=== PATIENT | female | born 1950 | race Caucasian/White ===

== ENCOUNTER 2024-11-03 14:38 | Outpatient (NON) | payer MEDICARE, SELFPAY ==
--- OUTSIDE RECORDS SUMMARY | 2024-11-03 14:45 | XMS_ITS | Encounter Summary ---
Author Organization [facility] Facility Care Team Providers Care Rn Relief Charge Name Role Phone Harry Jorgensen MD Primary Care Provider + Truman Moody MD Unavailable [phone] Michael Quiros MD Unavailable [phone] Mohan Rico MD Unavailable [phone] Betty Calvin Unavailable [phone] Sybil Alex [facility] Unavailable Unavailable Encounter Details Date Type Department Care Team (Latest Contact Info) Description 05/28/2017 Orders Only [facility] CLINCONV ProviderKrzysztof MD [address] [place] [address] Social History Tobacco Use Types Packs/Day Years Used Date Smoking Tobacco: Never Alcohol Use Standard Drinks/Week Comments No 0 (1 standard drink = 0.6 oz pur e alcohol) Comments Unknown Sex and Gender Information Value Date Recorded Sex Assigned at Not on file Legal Sex Female 10:24 AM ASSOCIATE SALES REPRESENTATIVE Gender Identity Female 01/15/2021 9:27 PM CDT Sexual Orientation Straight 01/15/2021 9: 27 PM CDT documented as of this encounter Plan of Treatment Not on file documented as of this encounter Procedures Procedure Name Priority Date/Time Associated Diagnosis Comments SCAN - LABS 05/28/2017 12:00 AM ASSOCIATE SALES REPRESENTATIVE documented in this encounter Results * SCAN - LABS (05/28/2017 12:00 AM ASSOCIATE SALES REPRESENTATIVE) Narrative 05/28/2017 12:00 AM ASSOCIATE SALES REPRESENTATIVE Ordered by an unspecified provider. us Historical Provider Final Res ult documented in this encounter Visit Diagnoses Not on filedocumented in this encounter Additional Health Concerns Infection Onset Date Last Indicated Resolved Time COVID19 10/21/2024 10/21/2024 documented as of this encounter Care Teams Rn Relief Charge Relationship Specialty Start Date End Date Harry Jorgensen MD PCP - General 09/06/16 Truman Moody MD Metal Fabricator Cardiology 02/01/19 09/16/24 iMchael Quiros MD [address] [address] Referring Physician Interventional Cardiology 09/17/24 Mohan Rico MD [address] [facility] [address] [place] [address] [place] [address] Consulting Physician Pulmonary Disease 09/17/24 Betty Calvin PA [address] [facility] [address] [place] [address] [place] [address] Physician Bistro Attendant Orthopedic Surgery 10/08/24 Sybil Alex, [facility] Pharmacist Pharmacy 10/29/24 documented as of this encounter
--- OUTSIDE RECORDS SUMMARY | 2024-11-03 14:45 | XMS_ITS | Encounter Summary ---
Author Organization [facility] Facility Care Team Providers Care Varnish Melter Name Role Phone Harry Jorgensen MD Primary Care Provider + Truman Moody MD Unavailable [phone] Michael Quiros MD Unavailable [phone] Mohan Rico MD Unavailable [phone] Betty Calvin Unavailable [phone] Sybil Alex [facility] Unavailable Unavailable Encounter Details Date Type Department Care Team (Latest Contact Info) Description 10/10/2016 Orders Only [facility] CLINCONV ProviderKrzysztof MD [address] [place] [address] Social History Tobacco Use Types Packs/Day Years Used Date Smoking Tobacco: Never Alcohol Use Standard Drinks/Week Comments No 0 (1 standard drink = 0.6 oz pur e alcohol) Comments Unknown Sex and Gender Information Value Date Recorded Sex Assigned at Not on file Legal Sex Female 10:24 AM NEEDLE MOLDER Gender Identity Female 01/15/2021 9:27 PM CDT Sexual Orientation Straight 01/15/2021 9: 27 PM CDT documented as of this encounter Plan of Treatment Not on file documented as of this encounter Procedures Procedure Name Priority Date/Time Associated Diagnosis Comments PROCEDURE - RESULT 10/10/2016 12 :00 AM CDT documented in this encounter Results * PROCEDURE - RESULT (10/10/2016 12:00 AM CDT) Narrative 10/10/2016 12:00 AM CDT Ordered by an unspecified provider. us Historical Provider Final Res ult documented in this encounter Visit Diagnoses Not on filedocumented in this encounter Additional Health Concerns Infection Onset Date Last Indicated Resolved Time COVID19 10/21/2024 10/21/2024 documented as of this encounter Care Teams Varnish Melter Relationship Specialty Start Date End Date Harry Jorgensen MD PCP - General 09/06/16 Truman Moody MD Lingo Cleaner Cardiology 02/01/19 09/16/24 Michael Quiros MD [address] [address] Referring Physician Interventional Cardiology 09/17/24 Mohan Rico MD [address] [facility] [address] [place] [address] [place] [address] Consulting Physician Pulmonary Disease 09/17/24 Betty Calvin PA [address] [facility] [address] [place] [address] [place] [address] Physician Hot Knife Foxing Cutter Orthopedic Surgery 10/08/24 Sybil Alex, [facility] Pharmacist Pharmacy 10/29/24 documented as of this encounter
--- OUTSIDE RECORDS SUMMARY | 2024-11-03 14:45 | XMS_ITS | Encounter Summary ---
Author Organization [facility] Facility Care Team Providers Care Air Route Controller Name Role Phone Harry Jorgensen MD Primary Care Provider + Truman Moody MD Unavailable [phone] Michael Quiros MD Unavailable [phone] Mohan Rico MD Unavailable [phone] Betty Calvin Unavailable [phone] Sybil Alex [facility] Unavailable Unavailable Encounter Details Date Type Department Care Team (Latest Contact Info) Description 10/23/2017 Orders Only [facility] CLINCONV ProviderKrzysztof MD [address] [place] [address] Social History Tobacco Use Types Packs/Day Years Used Date Smoking Tobacco: Never Alcohol Use Standard Drinks/Week Comments No 0 (1 standard drink = 0.6 oz pur e alcohol) Comments Unknown Sex and Gender Information Value Date Recorded Sex Assigned at Not on file Legal Sex Female 10:24 AM TURN LASTER Gender Identity Female 01/15/2021 9:27 PM CDT Sexual Orientation Straight 01/15/2021 9: 27 PM CDT documented as of this encounter Plan of Treatment Not on file documented as of this encounter Procedures Procedure Name Priority Date/Time Associated Diagnosis Comments SCAN - LABS 10/23/2017 12:00 AM CDT documented in this encounter Results * SCAN - LABS (10/23/2017 12:00 AM CDT) Narrative 10/23/2017 12:00 AM CDT Ordered by an unspecified provider. us Historical Provider Final Res ult documented in this encounter Visit Diagnoses Not on filedocumented in this encounter Additional Health Concerns Infection Onset Date Last Indicated Resolved Time COVID19 10/21/2024 10/21/2024 documented as of this encounter Care Teams Air Route Controller Relationship Specialty Start Date End Date Harry Jorgensen MD PCP - General 09/06/16 Truman Moody MD Assembler Faucets Cardiology 02/01/19 09/16/24 Michael Quiros MD [address] [address] Referring Physician Interventional Cardiology 09/17/24 Mohan Rico MD [address] [facility] [address] [place] [address] [place] [address] Consulting Physician Pulmonary Disease 09/17/24 Betty Calvin PA [address] [facility] [address] [place] [address] [place] [address] Physician Principal Archaeologist Orthopedic Surgery 10/08/24 Sybil Alex, [facility] Pharmacist Pharmacy 10/29/24 documented as of this encounter
--- OUTSIDE RECORDS SUMMARY | 2024-11-03 14:45 | XMS_ITS | Encounter Summary ---
Author Organization [facility] Facility Care Team Providers Care Technology Officer Name Role Phone Harry Jorgensen MD Primary Care Provider + Truman Moody MD Unavailable [phone] Michael Quiros MD Unavailable [phone] Mohan Rico MD Unavailable [phone] Betty Calvin Unavailable [phone] Sybil Alex [facility] Unavailable Unavailable Encounter Details Date Type Department Care Team (Latest Contact Info) Description 10/15/2016 Orders Only [facility] CLINCONV ProviderKrzysztof MD [address] [place] [address] Social History Tobacco Use Types Packs/Day Years Used Date Smoking Tobacco: Never Alcohol Use Standard Drinks/Week Comments No 0 (1 standard drink = 0.6 oz pur e alcohol) Comments Unknown Sex and Gender Information Value Date Recorded Sex Assigned at Not on file Legal Sex Female 10:24 AM AIRPORT REFUELING HANDLER Gender Identity Female 01/15/2021 9:27 PM CDT Sexual Orientation Straight 01/15/2021 9: 27 PM CDT documented as of this encounter Plan of Treatment Not on file documented as of this encounter Procedures Procedure Name Priority Date/Time Associated Diagnosis Comments SCAN - LABS 10/15/2016 12:00 AM CDT documented in this encounter Results * SCAN - LABS (10/15/2016 12:00 AM CDT) Narrative 10/15/2016 12:00 AM CDT Ordered by an unspecified provider. us Historical Provider Final Res ult documented in this encounter Visit Diagnoses Not on filedocumented in this encounter Additional Health Concerns Infection Onset Date Last Indicated Resolved Time COVID19 10/21/2024 10/21/2024 documented as of this encounter Care Teams Technology Officer Relationship Specialty Start Date End Date Harry Jorgensen MD PCP - General 09/06/16 Truman Moody MD Cooling Pipe Inspector Cardiology 02/01/19 09/16/24 Michael Quiros MD [address] [address] Referring Physician Interventional Cardiology 09/17/24 Mohan Rico MD [address] [facility] [address] [place] [address] [place] [address] Consulting Physician Pulmonary Disease 09/17/24 Betty Calvin PA [address] [facility] [address] [place] [address] [place] [address] Physician Retail Bakery Manager Orthopedic Surgery 10/08/24 Sybil Alex, [facility] Pharmacist Pharmacy 10/29/24 documented as of this encounter
--- OUTSIDE RECORDS SUMMARY | 2024-11-03 14:45 | XMS_ITS | Encounter Summary ---
Author Organization [facility] Facility Care Team Providers Care Tabulating Machine Mechanic Name Role Phone Harry Jorgensen MD Primary Care Provider + Truman Moody MD Unavailable [phone] Michael Quiros MD Unavailable [phone] Mohan Rico MD Unavailable [phone] Betty Calvin Unavailable [phone] Sybil Alex [facility] Unavailable Unavailable Encounter Details Date Type Department Care Team (Latest Contact Info) Description 10/09/2016 Orders Only [facility] CLINCONV ProviderKrzysztof MD [address] [place] [address] Social History Tobacco Use Types Packs/Day Years Used Date Smoking Tobacco: Never Alcohol Use Standard Drinks/Week Comments No 0 (1 standard drink = 0.6 oz pur e alcohol) Comments Unknown Sex and Gender Information Value Date Recorded Sex Assigned at Not on file Legal Sex Female 10:24 AM VP INTEGRITY Gender Identity Female 01/15/2021 9:27 PM CDT Sexual Orientation Straight 01/15/2021 9: 27 PM CDT documented as of this encounter Plan of Treatment Not on file documented as of this encounter Procedures Procedure Name Priority Date/Time Associated Diagnosis Comments PROCEDURE - RESULT 10/09/2016 12 :00 AM CDT documented in this encounter Results * PROCEDURE - RESULT (10/09/2016 12:00 AM CDT) Narrative 10/09/2016 12:00 AM CDT Ordered by an unspecified provider. us Historical Provider Final Res ult documented in this encounter Visit Diagnoses Not on filedocumented in this encounter Additional Health Concerns Infection Onset Date Last Indicated Resolved Time COVID19 10/21/2024 10/21/2024 documented as of this encounter Care Teams Tabulating Machine Mechanic Relationship Specialty Start Date End Date Harry Jorgensen MD PCP - General 09/06/16 Truman Moody MD Product Safety Compliance Leader Cardiology 02/01/19 09/16/24 Michael Quiros MD [address] [address] Referring Physician Interventional Cardiology 09/17/24 Mohan Rico MD [address] [facility] [address] [place] [address] [place] [address] Consulting Physician Pulmonary Disease 09/17/24 Betty Calvin PA [address] [facility] [address] [place] [address] [place] [address] Physician Bloom Conveyor Operator Orthopedic Surgery 10/08/24 Sybil Alex, [facility] Pharmacist Pharmacy 10/29/24 documented as of this encounter
--- OUTSIDE RECORDS SUMMARY | 2024-11-03 14:45 | XMS_ITS | Encounter Summary ---
Author Organization [facility] Facility Care Team Providers Care Clay Structure Builder And Servicer Name Role Phone Harry Jorgensen MD Primary Care Provider + Truman Moody MD Unavailable [phone] Michael Quiros MD Unavailable [phone] Mohan Rico MD Unavailable [phone] Betty Calvin Unavailable [phone] Sybil Alex [facility] Unavailable Unavailable Encounter Details Date Type Department Care Team (Latest Contact Info) Description 08/28/2017 Orders Only [facility]G CLINCONV ProviderKrzysztof MD [address] [place] [address] Social History Tobacco Use Types Packs/Day Years Used Date Smoking Tobacco: Never Alcohol Use Standard Drinks/Week Comments No 0 (1 standard drink = 0.6 oz pur e alcohol) Comments Unknown Sex and Gender Information Value Date Recorded Sex Assigned at Not on file Legal Sex Female 10:24 AM MUSTANGER Gender Identity Female 01/15/2021 9:27 PM CDT Sexual Orientation Straight 01/15/2021 9: 27 PM CDT documented as of this encounter Plan of Treatment Not on file documented as of this encounter Procedures Procedure Name Priority Date/Time Associated Diagnosis Comments SCAN - LABS 08/28/2017 12:00 AM CDT documented in this encounter Results * SCAN - LABS (08/28/2017 12:00 AM CDT) Narrative 08/28/2017 12:00 AM CDT Ordered by an unspecified provider. us Historical Provider Final Res ult documented in this encounter Visit Diagnoses Not on filedocumented in this encounter Additional Health Concerns Infection Onset Date Last Indicated Resolved Time COVID19 10/21/2024 10/21/2024 documented as of this encounter Care Teams Clay Structure Builder And Servicer Relationship Specialty Start Date End Date Harry Jorgensen MD PCP - General 09/06/16 Truman Moody MD Seasoning Sprayer Cardiology 02/01/19 09/16/24 Michael Quiros MD [address] [address] Referring Physician Interventional Cardiology 09/17/24 Mohan Rico MD [address] [facility] [address] [place] [address] [place] [address] Consulting Physician Pulmonary Disease 09/17/24 Betty Calvin PA [address] [facility] [address] [place] [address] [place] [address] Physician Heavy Equipment Field Mechanic Orthopedic Surgery 10/08/24 Sybil Alex, [facility] Pharmacist Pharmacy 10/29/24 documented as of this encounter
--- OUTSIDE RECORDS SUMMARY | 2024-11-03 14:45 | XMS_ITS | Encounter Summary ---
Author Organization [facility] Facility Care Team Providers Care Monotype Mechanic Name Role Phone Harry Jorgensen MD Primary Care Provider + Truman Moody MD Unavailable [phone] Michael Quiros MD Unavailable [phone] Mohan Rico MD Unavailable [phone] Betty Calvin Unavailable [phone] Sybil Alex [facility] Unavailable Unavailable Encounter Details Date Type Department Care Team (Latest Contact Info) Description 01/18/2018 Orders Only [facility]G CLINCONV ProviderKrzysztof MD [address] [place] [address] Social History Tobacco Use Types Packs/Day Years Used Date Smoking Tobacco: Never Alcohol Use Standard Drinks/Week Comments No 0 (1 standard drink = 0.6 oz pur e alcohol) Comments Unknown Sex and Gender Information Value Date Recorded Sex Assigned at Not on file Legal Sex Female 10:24 AM TOOTH POLISHER Gender Identity Female 01/15/2021 9:27 PM CDT Sexual Orientation Straight 01/15/2021 9: 27 PM CDT documented as of this encounter Plan of Treatment Not on file documented as of this encounter Procedures Procedure Name Priority Date/Time Associated Diagnosis Comments SCAN - LABS 01/18/2018 12:00 AM CDT documented in this encounter Results * SCAN - LABS (01/18/2018 12:00 AM CDT) Narrative 01/18/2018 12:00 AM CDT Ordered by an unspecified provider. us Historical Provider Final Res ult documented in this encounter Visit Diagnoses Not on filedocumented in this encounter Additional Health Concerns Infection Onset Date Last Indicated Resolved Time COVID19 10/21/2024 10/21/2024 documented as of this encounter Care Teams Monotype Mechanic Relationship Specialty Start Date End Date Harry Jorgensen MD PCP - General 09/06/16 Truman Moody MD Humanities And Languages Professor Cardiology 02/01/19 09/16/24 Michael Quiros MD [address] [address] Referring Physician Interventional Cardiology 09/17/24 Mohan Rico MD [address] [facility] [address] [place] [address] [place] [address] Consulting Physician Pulmonary Disease 09/17/24 Betty Calvin PA [address] [facility] [address] [place] [address] [place] [address] Physician Production Assembly Supervisor Orthopedic Surgery 10/08/24 Sybil Alex, [facility] Pharmacist Pharmacy 10/29/24 documented as of this encounter
--- OUTSIDE RECORDS SUMMARY | 2024-11-03 14:45 | XMS_ITS | Encounter Summary ---
Author Organization [facility] Facility Care Team Providers Care Cartography/Mapping Technician Name Role Phone Harry Jorgensen MD Primary Care Provider + Truman Moody MD Unavailable [phone] Michael Quiros MD Unavailable [phone] Mohan Rico MD Unavailable [phone] Betty Calvin Unavailable [phone] Sybil Alex [facility] Unavailable Unavailable Encounter Details Date Type Department Care Team (Latest Contact Info) Description 07/16/2017 Orders Only MMG CLINCONV ProviderKrzysztof MD [address] [place] [address] Social History Tobacco Use Types Packs/Day Years Used Date Smoking Tobacco: Never Alcohol Use Standard Drinks/Week Comments No 0 (1 standard drink = 0.6 oz pur e alcohol) Comments Unknown Sex and Gender Information Value Date Recorded Sex Assigned at Not on file Legal Sex Female 10:24 AM LYFT DRIVER Gender Identity Female 01/15/2021 9:27 PM CDT Sexual Orientation Straight 01/15/2021 9: 27 PM CDT documented as of this encounter Plan of Treatment Not on file documented as of this encounter Procedures Procedure Name Priority Date/Time Associated Diagnosis Comments SCAN - LABS 07/17/2017 12:00 AM LYFT DRIVER documented in this encounter Results * SCAN - LABS (07/17/2017 12:00 AM LYFT DRIVER) Narrative 07/17/2017 12:00 AM LYFT DRIVER Ordered by an unspecified provider. us Historical Provider Final Res ult documented in this encounter Visit Diagnoses Not on filedocumented in this encounter Additional Health Concerns Infection Onset Date Last Indicated Resolved Time COVID19 10/21/2024 10/21/2024 documented as of this encounter Care Teams Cartography/Mapping Technician Relationship Specialty Start Date End Date Harry Jorgensen MD PCP - General 09/06/16 Truman Moody MD Marble Cutter Operator Cardiology 02/01/19 09/16/24 Michael Quiros MD [address] [address] Referring Physician Interventional Cardiology 09/17/24 Mohan Rico MD [address] [facility] [address] [place] [address] [place] [address] Consulting Physician Pulmonary Disease 09/17/24 Betty Calvin PA [address] [facility] [address] [place] [address] [place] [address] Physician Machine Clothing Replacer Orthopedic Surgery 10/08/24 Sybil Alex, [facility] Pharmacist Pharmacy 10/29/24 documented as of this encounter
--- OUTSIDE RECORDS SUMMARY | 2024-11-03 14:45 | XMS_ITS | Encounter Summary ---
Author Organization [facility] Facility Care Team Providers Care Claim Service Representative Name Role Phone Harry Jorgensen MD Primary Care Provider + Truman Moody MD Unavailable [phone] Michael Quiros MD Unavailable [phone] Mohan Rico MD Unavailable [phone] Betty Calvin Unavailable [phone] Sybil Alex [facility] Unavailable Unavailable Encounter Details Date Type Department Care Team (Latest Contact Info) Description 09/26/2016 Orders Only MMG CLINCONV ProviderKrzysztof MD [address] [place] [address] Social History Tobacco Use Types Packs/Day Years Used Date Smoking Tobacco: Never Alcohol Use Standard Drinks/Week Comments No 0 (1 standard drink = 0.6 oz pur e alcohol) Comments Unknown Sex and Gender Information Value Date Recorded Sex Assigned at Not on file Legal Sex Female 10:24 AM HVAC OPERATIONS TECHNICIAN Gender Identity Female 01/15/2021 9:27 PM CDT Sexual Orientation Straight 01/15/2021 9: 27 PM CDT documented as of this encounter Plan of Treatment Not on file documented as of this encounter Procedures Procedure Name Priority Date/Time Associated Diagnosis Comments SCAN - LABS 09/26/2016 12:00 AM CDT documented in this encounter Results * SCAN - LABS (09/26/2016 12:00 AM CDT) Narrative 09/26/2016 12:00 AM CDT Ordered by an unspecified provider. us Historical Provider Final Res ult documented in this encounter Visit Diagnoses Not on filedocumented in this encounter Additional Health Concerns Infection Onset Date Last Indicated Resolved Time COVID19 10/21/2024 10/21/2024 documented as of this encounter Care Teams Claim Service Representative Relationship Specialty Start Date End Date Harry Jorgensen MD PCP - General 09/06/16 Truman Moody MD Geothermal System Installer Cardiology 02/01/19 09/16/24 Michael Quiros MD [address] [address] Referring Physician Interventional Cardiology 09/17/24 Mohan Rico MD [address] [facility] [address] [place] [address] [place] [address] Consulting Physician Pulmonary Disease 09/17/24 Betty Calvin PA [address] [facility] [address] [place] [address] [place] [address] Physician Pulp Machine Operator Orthopedic Surgery 10/08/24 Sybil Alex, [facility] Pharmacist Pharmacy 10/29/24 documented as of this encounter
--- OUTSIDE RECORDS SUMMARY | 2024-11-03 14:45 | XMS_ITS | Encounter Summary ---
Author Organization [facility] Facility Care Team Providers Care Subcontract Administrator Name Role Phone Harry Jorgensen MD Primary Care Provider + Taqueria Sullivan MD Primary Care Provider [phone] Harry Jorgensen MD Primary Care Provider + Truman Moody MD Unavailable [phone] Michael Quiros MD Unavailable [phone] Mohan Rico MD Unavailable [phone] Betty Calvin Unavailable [phone] Sybil Alex [facility] Unavailable Unavailable Encounter Details Date Type Department Care Team (Latest Contact Info) Description 08/21/2016 Orders Only MMG CLINCONV ProviderKrzysztof MD [address] [place] [address] Social History Tobacco Use Types Packs/Day Years Used Date Smoking Tobacco: Never Alcohol Use Standard Drinks/Week Comments No 0 (1 standard drink = 0.6 oz pur e alcohol) Comments Unknown Sex and Gender Information Value Date Recorded Sex Assigned at Not on file Legal Sex Female 10:24 AM SHANK SCOURER Gender Identity Female 01/15/2021 9:27 PM CDT Sexual Orientation Straight 01/15/2021 9: 27 PM CDT documented as of this encounter Plan of Treatment Not on file documented as of this encounter Procedures Procedure Name Priority Date/Time Associated Diagnosis Comments SCAN - LABS 08/21/2016 12:00 AM CDT documented in this encounter Results * SCAN - LABS (08/21/2016 12:00 AM CDT) Narrative 08/21/2016 12:00 AM CDT Ordered by an unspecified provider. us Historical Provider Final Res ult documented in this encounter Visit Diagnoses Not on filedocumented in this encounter Additional Health Concerns Infection Onset Date Last Indicated Resolved Time COVID19 10/21/2024 10/21/2024 documented as of this encounter Care Teams Subcontract Administrator Relationship Specialty Start Date End Date Harry Jorgensen MD PCP - General 09/06/16 Taqueria Sullivan MD [address] [address] PCP - General 08/27/16 09/05/16 Harry Jorgensen MD PCP - General 04/21/14 08/26/16 Truman Moody MD [address] [address] Lan Engineer Cardiology 02/01/19 09/16/24 Michael Quiros MD [address] [place] [address] 3 [place] [address] Referring Physician Interventional Cardiology 09/17/24 Mohan Rico MD [address] [address] Consulting Physician Pulmonary Disease 09/17/24 Betty Calvin PA [address] [facility] [address] [place] [address] [place] [address] Physician Joint Creaser Orthopedic Surgery 10/08/24 Sybil Alex, [facility] Pharmacist Pharmacy 10/29/24 documented as of this encounter
--- OUTSIDE RECORDS SUMMARY | 2024-11-03 14:45 | XMS_ITS | Encounter Summary ---
Author Organization [facility] Facility Care Team Providers Care Strap Making Machine Operator Name Role Phone Harry Jorgensen MD Primary Care Provider + Truman Moody MD Unavailable [phone] Michael Quiros MD Unavailable [phone] Mohan Rico MD Unavailable [phone] Betty Calvin Unavailable [phone] Sybil Alex [facility] Unavailable Unavailable Encounter Details Date Type Department Care Team (Latest Contact Info) Description 09/15/2017 Orders Only MMG CLINCONV ProviderKrzysztof MD [address] [place] [address] Social History Tobacco Use Types Packs/Day Years Used Date Smoking Tobacco: Never Alcohol Use Standard Drinks/Week Comments No 0 (1 standard drink = 0.6 oz pur e alcohol) Comments Unknown Sex and Gender Information Value Date Recorded Sex Assigned at Not on file Legal Sex Female 10:24 AM WINDOWS VMWARE ENGINEER Gender Identity Female 01/15/2021 9:27 PM CDT Sexual Orientation Straight 01/15/2021 9: 27 PM CDT documented as of this encounter Plan of Treatment Not on file documented as of this encounter Procedures Procedure Name Priority Date/Time Associated Diagnosis Comments SCAN - LABS 09/15/2017 12:00 AM CDT documented in this encounter Results * SCAN - LABS (09/15/2017 12:00 AM CDT) Narrative 09/15/2017 12:00 AM CDT Ordered by an unspecified provider. us Historical Provider Final Res ult documented in this encounter Visit Diagnoses Not on filedocumented in this encounter Additional Health Concerns Infection Onset Date Last Indicated Resolved Time COVID19 10/21/2024 10/21/2024 documented as of this encounter Care Teams Strap Making Machine Operator Relationship Specialty Start Date End Date Harry Jorgensen MD PCP - General 09/06/16 Truman Moody MD Sort Line Cardiology 02/01/19 09/16/24 Michael Quiros MD [address] [address] Referring Physician Interventional Cardiology 09/17/24 Mohan Rico MD [address] [facility] [address] [place] [address] Consulting Physician Pulmonary Disease 09/17/24 Betty Calvin PA [address] [facility] [address] [place] [address] Physician Huller Operator Orthopedic Surgery 10/08/24 Sybil Alex, [facility] Pharmacist Pharmacy 10/29/24 documented as of this encounter
--- OUTSIDE RECORDS SUMMARY | 2024-11-03 14:45 | XMS_ITS | Encounter Summary ---
Author Organization [facility] Facility Care Team Providers Care Waste Treatment Operator Name Role Phone Harry Jorgensen MD Primary Care Provider + Truman Moody MD Unavailable [phone] Michael Quiros MD Unavailable [phone] Mohan Rico MD Unavailable [phone] Betty Calvin Unavailable [phone] Sybil Alex [facility] Unavailable Unavailable Encounter Details Date Type Department Care Team (Latest Contact Info) Description 07/30/2017 Orders Only MMG CLINCONV ProviderKrzysztof MD [address] [place] [address] Social History Tobacco Use Types Packs/Day Years Used Date Smoking Tobacco: Never Alcohol Use Standard Drinks/Week Comments No 0 (1 standard drink = 0.6 oz pur e alcohol) Comments Unknown Sex and Gender Information Value Date Recorded Sex Assigned at Not on file Legal Sex Female 10:24 AM SEARCH MANAGER Gender Identity Female 01/15/2021 9:27 PM CDT Sexual Orientation Straight 01/15/2021 9: 27 PM CDT documented as of this encounter Plan of Treatment Not on file documented as of this encounter Procedures Procedure Name Priority Date/Time Associated Diagnosis Comments CARDIOLOGY REPORT 07/30/2017 12: 00 AM SEARCH MANAGER documented in this encounter Results * CARDIOLOGY REPORT (07/30/2017 12:00 AM SEARCH MANAGER) Anatomical Region Laterality Modality Other Narrative 07/30/2017 12:00 AM SEARCH MANAGER Ordered by an unspecified provider. us Historical Provider CV CARDIAC SERVICES PROCE ALEX Final Result documented in this encounter Visit Diagnoses Not on filedocumented in this encounter Additional Health Concerns Infection Onset Date Last Indicated Resolved Time COVID19 10/21/2024 10/21/2024 documented as of this encounter Care Teams Waste Treatment Operator Relationship Specialty Start Date End Date Harry Jorgensen MD PCP - General 09/06/16 Truman Moody MD Health Care Consultant Cardiology 02/01/19 09/16/24 Michael Quiros MD [address] [place] [address] Referring Physician Interventional Cardiology 09/17/24 Mohan Rico MD [address] [facility] [address] [place] [address] Consulting Physician Pulmonary Disease 09/17/24 Betty Calvin PA [address] [facility] [address] [place] [address] Physician Marine Designer Orthopedic Surgery 10/08/24 Sybil Alex, [facility] Pharmacist Pharmacy 10/29/24 documented as of this encounter
--- OUTSIDE RECORDS SUMMARY | 2024-11-03 14:45 | XMS_ITS | Encounter Summary ---
Author Organization [facility] Facility Care Team Providers Care Banking Assistant Name Role Phone Harry Jorgensen MD Primary Care Provider + Truman Moody MD Unavailable [phone] Michael Quiros MD Unavailable [phone] Mohan Rico MD Unavailable [phone] Betty Calvin Unavailable [phone] Sybil Alex [facility] Unavailable Unavailable Encounter Details Date Type Department Care Team (Latest Contact Info) Description 10/07/2017 Orders Only MMG CLINCONV ProviderKrzysztof MD [address] [place] [address] Social History Tobacco Use Types Packs/Day Years Used Date Smoking Tobacco: Never Alcohol Use Standard Drinks/Week Comments No 0 (1 standard drink = 0.6 oz pur e alcohol) Comments Unknown Sex and Gender Information Value Date Recorded Sex Assigned at Not on file Legal Sex Female 10:24 AM GRANTS DIRECTOR Gender Identity Female 01/15/2021 9:27 PM CDT Sexual Orientation Straight 01/15/2021 9: 27 PM CDT documented as of this encounter Plan of Treatment Not on file documented as of this encounter Procedures Procedure Name Priority Date/Time Associated Diagnosis Comments SCAN - LABS 10/07/2017 12:00 AM CDT SCAN - LABS 10/07/2017 12:00 AM CDT documented in this encounter Results * SCAN - LABS (10/07/2017 12:00 AM CDT) Narrative 10/07/2017 12:00 AM CDT Ordered by an unspecified provider. us Historical Provider Final Res ult * SCAN - LABS (10/07/2017 12:00 AM CDT) Narrative 10/07/2017 12:00 AM CDT Ordered by an unspecified provider. Historical Provider Final Res ult documented in this encounter Visit Diagnoses Not on filedocumented in this encounter Additional Health Concerns Infection Onset Date Last Indicated Resolved Time COVID19 10/21/2024 10/21/2024 documented as of this encounter Care Teams Banking Assistant Relationship Specialty Start Date End Date Harry Jorgensen MD PCP - General 09/06/16 Truman Moody MD Job Coach Cardiology 02/01/19 09/16/24 Michael Quiros MD [address] [place] [address] Referring Physician Interventional Cardiology 09/17/24 Mohan Rico MD [address] [facility] [address] [place] [address] Consulting Physician Pulmonary Disease 09/17/24 Betty Calvin PA [address] [facility] [address] [place] [address] Physician Pocket Flap Creasing Machine Operator Orthopedic Surgery 10/08/24 Sybil Alex, [facility] Pharmacist Pharmacy 10/29/24 documented as of this encounter
--- OUTSIDE RECORDS SUMMARY | 2024-11-03 14:45 | XMS_ITS | Encounter Summary ---
Author Organization [facility] Facility Care Team Providers Care Regional Marketing Director Name Role Phone Harry Jorgensen MD Primary Care Provider + Truman Moody MD Unavailable [phone] Michael Quiros MD Unavailable [phone] Mohan Rico MD Unavailable [phone] Betty Calvin Unavailable [phone] Sybil Alex [facility] Unavailable Unavailable Encounter Details Date Type Department Care Team (Latest Contact Info) Description 11/26/2016 Orders Only MMG CLINCONV ProviderKrzysztof MD [address] [place] [address] Social History Tobacco Use Types Packs/Day Years Used Date Smoking Tobacco: Never Alcohol Use Standard Drinks/Week Comments No 0 (1 standard drink = 0.6 oz pur e alcohol) Comments Unknown Sex and Gender Information Value Date Recorded Sex Assigned at Not on file Legal Sex Female 10:24 AM ASSURANCE SOURCING MANAGER Gender Identity Female 01/15/2021 9:27 PM CDT Sexual Orientation Straight 01/15/2021 9: 27 PM CDT documented as of this encounter Plan of Treatment Not on file documented as of this encounter Procedures Procedure Name Priority Date/Time Associated Diagnosis Comments PROCEDURE - RESULT 11/26/2016 12 :00 AM CDT documented in this encounter Results * PROCEDURE - RESULT (11/26/2016 12:00 AM CDT) Narrative 11/26/2016 12:00 AM CDT Ordered by an unspecified provider. us Historical Provider Final Res ult documented in this encounter Visit Diagnoses Not on filedocumented in this encounter Additional Health Concerns Infection Onset Date Last Indicated Resolved Time COVID19 10/21/2024 10/21/2024 documented as of this encounter Care Teams Regional Marketing Director Relationship Specialty Start Date End Date Harry Jorgensen MD PCP - General 09/06/16 Truman Moody MD Radiologic Technologist Chief Cardiology 02/01/19 09/16/24 Michael Quiros MD [address] [address] Referring Physician Interventional Cardiology 09/17/24 Mohan Rico MD [address] [facility] [address] [address] [place] [address] Consulting Physician Pulmonary Disease 09/17/24 Betty Calvin PA [address] [facility] [address] [place] [place] [address] Physician Transonic Engineer Orthopedic Surgery 10/08/24 Sybil Alex, [facility] Pharmacist Pharmacy 10/29/24 documented as of this encounter
--- OUTSIDE RECORDS SUMMARY | 2024-11-03 14:45 | XMS_ITS | Encounter Summary ---
Author Organization [facility] Facility Care Team Providers Care Criminology Professor Name Role Phone Harry Jorgensen MD Primary Care Provider + Truman Moody MD Unavailable [phone] Michael Quiros MD Unavailable [phone] Mohna Rico MD Unavailable [phone] Betty Calvin Unavailable [phone] Sybil Alex [facility] Unavailable Unavailable Encounter Details Date Type Department Care Team (Latest Contact Info) Description 09/12/2016 Orders Only MMG CLINCONV ProviderKrzysztof MD [address] [place] [address] Social History Tobacco Use Types Packs/Day Years Used Date Smoking Tobacco: Never Alcohol Use Standard Drinks/Week Comments No 0 (1 standard drink = 0.6 oz pur e alcohol) Comments Unknown Sex and Gender Information Value Date Recorded Sex Assigned at Not on file Legal Sex Female 10:24 AM SEED PRODUCTION FIELD SUPERVISOR Gender Identity Female 01/15/2021 9:27 PM CDT Sexual Orientation Straight 01/15/2021 9: 27 PM CDT documented as of this encounter Plan of Treatment Not on file documented as of this encounter Procedures Procedure Name Priority Date/Time Associated Diagnosis Comments SCAN - LABS 09/12/2016 12:00 AM CDT documented in this encounter Results * SCAN - LABS (09/12/2016 12:00 AM CDT) Narrative 09/12/2016 12:00 AM CDT Ordered by an unspecified provider. us Historical Provider Final Res ult documented in this encounter Visit Diagnoses Not on filedocumented in this encounter Additional Health Concerns Infection Onset Date Last Indicated Resolved Time COVID19 10/21/2024 10/21/2024 documented as of this encounter Care Teams Criminology Professor Relationship Specialty Start Date End Date Harry Jorgensen MD PCP - General 09/06/16 Truman Moody MD Gaming Investigator Cardiology 02/01/19 09/16/24 Michael Quiros MD [address] [address] Referring Physician Interventional Cardiology 09/17/24 Mohan Rico MD [address] [facility] [address] [place] [address] [place] [address] Consulting Physician Pulmonary Disease 09/17/24 Betty Calvin PA [address] [facility] [address] [place] [address] Physician Product Development Manager Orthopedic Surgery 10/08/24 Sybil Alex, [facility] Pharmacist Pharmacy 10/29/24 documented as of this encounter
--- OUTSIDE RECORDS SUMMARY | 2024-11-03 14:45 | XMS_ITS | Encounter Summary ---
Author Organization [facility] Facility Care Team Providers Care Sales Applications Engineer Name Role Phone Harry Jorgensen MD Primary Care Provider + Taqueria Sullivan MD Primary Care Provider [phone] Harry Jorgensen MD Primary Care Provider + Truman Moody MD Unavailable [phone] Michael Quiros MD Unavailable [phone] Mohan Rico MD Unavailable [phone] Betty Calvin Unavailable [phone] Sybil Alex [facility] Unavailable Unavailable Encounter Details Date Type Department Care Team (Latest Contact Info) Description 07/25/2016 Orders Only MMG CLINCONV ProviderKrzysztof MD [address] [place] [address] Social History Tobacco Use Types Packs/Day Years Used Date Smoking Tobacco: Never Alcohol Use Standard Drinks/Week Comments No 0 (1 standard drink = 0.6 oz pur e alcohol) Comments Unknown Sex and Gender Information Value Date Recorded Sex Assigned at Not on file Legal Sex Female 10:24 AM DATA PROCESSING SYSTEMS PROJECT PLANNER Gender Identity Female 01/15/2021 9:27 PM CDT Sexual Orientation Straight 01/15/2021 9: 27 PM CDT documented as of this encounter Plan of Treatment Not on file documented as of this encounter Procedures Procedure Name Priority Date/Time Associated Diagnosis Comments SCAN - LABS 07/25/2016 12:00 AM DATA PROCESSING SYSTEMS PROJECT PLANNER documented in this encounter Results * SCAN - LABS (07/25/2016 12:00 AM DATA PROCESSING SYSTEMS PROJECT PLANNER) Narrative 07/25/2016 12:00 AM DATA PROCESSING SYSTEMS PROJECT PLANNER Ordered by an unspecified provider. us Historical Provider Final Res ult documented in this encounter Visit Diagnoses Not on filedocumented in this encounter Additional Health Concerns Infection Onset Date Last Indicated Resolved Time COVID19 10/21/2024 10/21/2024 documented as of this encounter Care Teams Sales Applications Engineer Relationship Specialty Start Date End Date Harry Jorgensen MD PCP - General 09/06/16 Taqueria Sullivan MD [address] [facility] [address], [place] [address] PCP - General 08/27/16 09/05/16 Harry Jorgensen MD PCP - General 04/21/14 08/26/16 Truman Moody MD [address] [address] Javascript Software Engineer Cardiology 02/01/19 09/16/24 Michael Quiros MD [address] [place] [address] 3 [place] [address] Referring Physician Interventional Cardiology 09/17/24 Mohan Rico MD [address] [address] Consulting Physician Pulmonary Disease 09/17/24 Betty Calvin PA [address] [facility] [address] [place] [address] Physician Ladies Locker Room Attendant Orthopedic Surgery 10/08/24 Sybil Alex [facility] Pharmacist Pharmacy 10/29/24 documented as of this encounter
--- OUTSIDE RECORDS SUMMARY | 2024-11-03 14:45 | XMS_ITS | Encounter Summary ---
Author Organization [facility] Facility Care Team Providers Care Document Design Specialist Name Role Phone Harry Jorgensen MD Primary Care Provider + Truman Moody MD Unavailable [phone] Michael Quiros MD Unavailable [phone] Mohan Rico MD Unavailable [phone] Betty Calvin Unavailable [phone] [facility] Unavailable Unavailable Encounter Details Date Type Department Care Team (Latest Contact Info) Description 02/05/2017 Orders Only MMG CLINCONV ProviderKrzysztof MD [address] [place] [address] Social History Tobacco Use Types Packs/Day Years Used Date Smoking Tobacco: Never Alcohol Use Standard Drinks/Week Comments No 0 (1 standard drink = 0.6 oz pur e alcohol) Comments Unknown Sex and Gender Information Value Date Recorded Sex Assigned at Not on file Legal Sex Female 10:24 AM GLUING CREW LEADER Gender Identity Female 01/15/2021 9:27 PM CDT Sexual Orientation Straight 01/15/2021 9: 27 PM CDT documented as of this encounter Plan of Treatment Not on file documented as of this encounter Procedures Procedure Name Priority Date/Time Associated Diagnosis Comments SCAN - LABS 02/05/2017 12:00 AM CDT documented in this encounter Results * SCAN - LABS (02/05/2017 12:00 AM CDT) Narrative 02/05/2017 12:00 AM CDT Ordered by an unspecified provider. us Historical Provider Final Res ult documented in this encounter Visit Diagnoses Not on filedocumented in this encounter Additional Health Concerns Infection Onset Date Last Indicated Resolved Time COVID19 10/21/2024 10/21/2024 documented as of this encounter Care Teams Document Design Specialist Relationship Specialty Start Date End Date Harry Jorgensen MD PCP - General 09/06/16 Truman Moody MD Neurology Tech Cardiology 02/01/19 09/16/24 Michael Quiros MD [address] [address] Referring Physician Interventional Cardiology 09/17/24 Mohan Rico MD [address] [facility] [address] [place] [address] [place] [address] Consulting Physician Pulmonary Disease 09/17/24 Betty Calvin PA [address] [facility] [address] [place] [address] [place] [address] Physician Trucker Orthopedic Surgery 10/08/24 Sybil Alex, [facility] Pharmacist Pharmacy 10/29/24 documented as of this encounter
--- OUTSIDE RECORDS SUMMARY | 2024-11-03 14:45 | XMS_ITS | Encounter Summary ---
Author Organization [facility] Facility Care Team Providers Care Storeroom Supervisor Name Role Phone Harry Jorgensen MD Primary Care Provider + Taqueria Sullivan MD Primary Care Provider [phone] Harry Jorgensen MD Primary Care Provider + Truman Moody MD Unavailable [phone] Michael Quiros MD Unavailable [phone] Mohan Rico MD Unavailable [phone] Betyt Calvin Unavailable [phone] Sybil Alex [facility] Unavailable Unavailable Encounter Details Date Type Department Care Team (Latest Contact Info) Description 08/08/2016 Orders Only MMG CLINCONV ProviderKrzysztof MD [address] [place] [address] Social History Tobacco Use Types Packs/Day Years Used Date Smoking Tobacco: Never Alcohol Use Standard Drinks/Week Comments No 0 (1 standard drink = 0.6 oz pur e alcohol) Comments Unknown Sex and Gender Information Value Date Recorded Sex Assigned at Not on file Legal Sex Female 10:24 AM MULTIFOLD OPERATOR Gender Identity Female 01/15/2021 9:27 PM CDT Sexual Orientation Straight 01/15/2021 9: 27 PM CDT documented as of this encounter Plan of Treatment Not on file documented as of this encounter Procedures Procedure Name Priority Date/Time Associated Diagnosis Comments SCAN - LABS 08/08/2016 12:00 AM MULTIFOLD OPERATOR documented in this encounter Results * SCAN - LABS (08/08/2016 12:00 AM MULTIFOLD OPERATOR) Narrative 08/08/2016 12:00 AM MULTIFOLD OPERATOR Ordered by an unspecified provider. us Historical Provider Final Res ult documented in this encounter Visit Diagnoses Not on filedocumented in this encounter Additional Health Concerns Infection Onset Date Last Indicated Resolved Time COVID19 10/21/2024 10/21/2024 documented as of this encounter Care Teams Storeroom Supervisor Relationship Specialty Start Date End Date Harry Jorgensen MD PCP - General 09/06/16 Taqueria Sullivan MD [address] [facility] [address], [place] [address] PCP - General 08/27/16 09/05/16 Harry Jorgensen MD PCP - General 04/21/14 08/26/16 Truman Moody MD [address] [address] Art Sales Consultant Cardiology 02/01/19 09/16/24 Michael Quiros MD [address] [place] [address] [address] [place] [address] Referring Physician Interventional Cardiology 09/17/24 Mohan Rico MD [address] [address] Consulting Physician Pulmonary Disease 09/17/24 Betty Calvin PA [address] [facility] [address] [place] [place] [address] Physician Medical Management Trainer Orthopedic Surgery 10/08/24 Sybil Alex [facility] Pharmacist Pharmacy 10/29/24 documented as of this encounter
--- OUTSIDE RECORDS SUMMARY | 2024-11-03 14:45 | XMS_ITS | Encounter Summary ---
Author Organization [facility] Facility Care Team Providers Care Management Specialist Name Role Phone Harry Jorgensen MD Primary Care Provider + Truman Moody MD Unavailable [phone] Michael Quiros MD Unavailable [phone] Mohan Rico MD Unavailable [phone] Betty Calvin Unavailable [phone] Sybil Alex [facility] Unavailable Unavailable Encounter Details Date Type Department Care Team (Latest Contact Info) Description 07/01/2017 Orders Only [facility]G CLINCONV ProviderKrzysztof MD [address] [place] [address] Social History Tobacco Use Types Packs/Day Years Used Date Smoking Tobacco: Never Alcohol Use Standard Drinks/Week Comments No 0 (1 standard drink = 0.6 oz pur e alcohol) Comments Unknown Sex and Gender Information Value Date Recorded Sex Assigned at Not on file Legal Sex Female 10:24 AM MANUFACTURING ACCOUNTANT Gender Identity Female 01/15/2021 9:27 PM CDT Sexual Orientation Straight 01/15/2021 9: 27 PM CDT documented as of this encounter Plan of Treatment Not on file documented as of this encounter Procedures Procedure Name Priority Date/Time Associated Diagnosis Comments SCAN - LABS 07/01/2017 12:00 AM MANUFACTURING ACCOUNTANT documented in this encounter Results * SCAN - LABS (07/01/2017 12:00 AM MANUFACTURING ACCOUNTANT) Narrative 07/01/2017 12:00 AM MANUFACTURING ACCOUNTANT Ordered by an unspecified provider. us Historical Provider Final Res ult documented in this encounter Visit Diagnoses Not on filedocumented in this encounter Additional Health Concerns Infection Onset Date Last Indicated Resolved Time COVID19 10/21/2024 10/21/2024 documented as of this encounter Care Teams Management Specialist Relationship Specialty Start Date End Date Harry Jorgensen MD PCP - General 09/06/16 Truman Moody MD D[facility] Cardiology 02/01/19 09/16/24 iMchael Quiros MD [address] [address] Referring Physician Interventional Cardiology 09/17/24 Mohan Rico MD [address] [facility] [address] [place] [address] Consulting Physician Pulmonary Disease 09/17/24 Betty Calvin PA [address] [facility] [address] [place] [address] Physician High School Agriculture Teacher Orthopedic Surgery 10/08/24 Sybil Alex, [facility] Pharmacist Pharmacy 10/29/24 documented as of this encounter
--- OUTSIDE RECORDS SUMMARY | 2024-11-03 14:45 | XMS_ITS | Encounter Summary ---
Author Organization [facility] Facility Care Team Providers Care Restrictive Preparation Operator Name Role Phone Harry Jorgensen MD Primary Care Provider + Truman Moody MD Unavailable [phone] Michael Quiros MD Unavailable [phone] Mohan Rico MD Unavailable [phone] Betty Calvin Unavailable [phone] Sybil Alex [facility] Unavailable Unavailable Encounter Details Date Type Department Care Team (Latest Contact Info) Description 12/31/2017 Orders Only [facility]G CLINCONV ProviderKrzysztof MD [address] [place] [address] Social History Tobacco Use Types Packs/Day Years Used Date Smoking Tobacco: Never Alcohol Use Standard Drinks/Week Comments No 0 (1 standard drink = 0.6 oz pur e alcohol) Comments Unknown Sex and Gender Information Value Date Recorded Sex Assigned at Not on file Legal Sex Female 10:24 AM HIDE WASHER Gender Identity Female 01/15/2021 9:27 PM CDT Sexual Orientation Straight 01/15/2021 9: 27 PM CDT documented as of this encounter Plan of Treatment Not on file documented as of this encounter Procedures Procedure Name Priority Date/Time Associated Diagnosis Comments SCAN - LABS 12/31/2017 12:00 AM CDT documented in this encounter Results * SCAN - LABS (12/31/2017 12:00 AM CDT) Narrative 12/31/2017 12:00 AM CDT Ordered by an unspecified provider. us Historical Provider Final Res ult documented in this encounter Visit Diagnoses Not on filedocumented in this encounter Additional Health Concerns Infection Onset Date Last Indicated Resolved Time COVID19 10/21/2024 10/21/2024 documented as of this encounter Care Teams Restrictive Preparation Operator Relationship Specialty Start Date End Date Harry Jorgensen MD PCP - General 09/06/16 Truman Moody MD Field Professional Cardiology 02/01/19 09/16/24 Michael Quiros MD [address] [address] Referring Physician Interventional Cardiology 09/17/24 Mohan Rico MD [address] [facility] [address] [place] [address] Consulting Physician Pulmonary Disease 09/17/24 Betty Calvin PA [address] [facility] [address] [place] [address] Physician Rn Hematology Orthopedic Surgery 10/08/24 Sybil Alex, [facility] Pharmacist Pharmacy 10/29/24 documented as of this encounter
--- OUTSIDE RECORDS SUMMARY | 2024-11-03 14:45 | XMS_ITS | Encounter Summary ---
Author Organization [facility] Facility Care Team Providers Care Mailing Machine Assistant Name Role Phone Harry Jorgensen MD Primary Care Provider + Truman Moody MD Unavailable [phone] Michael Quiros MD Unavailable [phone] Mohan Rico MD Unavailable [phone] Betty Calvin Unavailable [phone] Sybil Alex [facility] Unavailable Unavailable Encounter Details Date Type Department Care Team (Latest Contact Info) Description 09/22/2017 Orders Only MMG CLINCONV ProviderKrzysztof MD [address] [place] [address] Social History Tobacco Use Types Packs/Day Years Used Date Smoking Tobacco: Never Alcohol Use Standard Drinks/Week Comments No 0 (1 standard drink = 0.6 oz pur e alcohol) Comments Unknown Sex and Gender Information Value Date Recorded Sex Assigned at Not on file Legal Sex Female 10:24 AM PRODUCTION LINE OPERATOR Gender Identity Female 01/15/2021 9:27 PM CDT Sexual Orientation Straight 01/15/2021 9: 27 PM CDT documented as of this encounter Plan of Treatment Not on file documented as of this encounter Procedures Procedure Name Priority Date/Time Associated Diagnosis Comments SCAN - LABS 09/22/2017 12:00 AM CDT documented in this encounter Results * SCAN - LABS (09/22/2017 12:00 AM CDT) Narrative 09/22/2017 12:00 AM CDT Ordered by an unspecified provider. us Historical Provider Final Res ult documented in this encounter Visit Diagnoses Not on filedocumented in this encounter Additional Health Concerns Infection Onset Date Last Indicated Resolved Time COVID19 10/21/2024 10/21/2024 documented as of this encounter Care Teams Mailing Machine Assistant Relationship Specialty Start Date End Date Harry Jorgensen MD PCP - General 09/06/16 Truman Moody MD Take Off Man Cardiology 02/01/19 09/16/24 Michael Quiros MD [address] [address] Referring Physician Interventional Cardiology 09/17/24 Mohan Rico MD [address] [facility] [address] [place] [address] Consulting Physician Pulmonary Disease 09/17/24 Betty Calvin PA [address] [facility] [address] [place] [address] Physician Solaris Administrator Orthopedic Surgery 10/08/24 Sybil Alex, [facility] Pharmacist Pharmacy 10/29/24 documented as of this encounter
--- OUTSIDE RECORDS SUMMARY | 2024-11-03 14:45 | XMS_ITS | Encounter Summary ---
Author Organization [facility] Facility Care Team Providers Care Fire Patroller Name Role Phone Harry Jorgensen MD Primary Care Provider + Truman Moody MD Unavailable [phone] Michael Quiros MD Unavailable [phone] Mohan Rico MD Unavailable [phone] Betty Calvin Unavailable [phone] Sybil Alex [facility] Unavailable Unavailable Encounter Details Date Type Department Care Team (Latest Contact Info) Description 01/02/2017 Orders Only MMG CLINCONV ProviderKrzysztof MD [address] [place] [address] Social History Tobacco Use Types Packs/Day Years Used Date Smoking Tobacco: Never Alcohol Use Standard Drinks/Week Comments No 0 (1 standard drink = 0.6 oz pur e alcohol) Comments Unknown Sex and Gender Information Value Date Recorded Sex Assigned at Not on file Legal Sex Female 10:24 AM TAX ASSESSOR Gender Identity Female 01/15/2021 9:27 PM CDT Sexual Orientation Straight 01/15/2021 9: 27 PM CDT documented as of this encounter Plan of Treatment Not on file documented as of this encounter Procedures Procedure Name Priority Date/Time Associated Diagnosis Comments SCAN - LABS 01/03/2017 12:00 AM CDT documented in this encounter Results * SCAN - LABS (01/03/2017 12:00 AM CDT) Narrative 01/03/2017 12:00 AM CDT Ordered by an unspecified provider. us Historical Provider Final Res ult documented in this encounter Visit Diagnoses Not on filedocumented in this encounter Additional Health Concerns Infection Onset Date Last Indicated Resolved Time COVID19 10/21/2024 10/21/2024 documented as of this encounter Care Teams Fire Patroller Relationship Specialty Start Date End Date Harry Jorgensen MD PCP - General 09/06/16 Truman Moody MD Record Changer Assembler Cardiology 02/01/19 09/16/24 Michael Quiros MD [address] [address] Referring Physician Interventional Cardiology 09/17/24 Mohan Rico MD [address] [facility] [address] [place] [address] Consulting Physician Pulmonary Disease 09/17/24 Betty Calvin PA [address] [facility] [address] [place] [address] Physician Transfer Driver Orthopedic Surgery 10/08/24 Sybil Alex, [facility] Pharmacist Pharmacy 10/29/24 documented as of this encounter
--- OUTSIDE RECORDS SUMMARY | 2024-11-03 14:45 | XMS_ITS | Encounter Summary ---
Author Organization [facility] Facility Care Team Providers Care Internal Affairs Investigator Name Role Phone Harry Jorgensen MD Primary Care Provider + Taqueria Sullivan MD Primary Care Provider Truman Moody MD Unavailable [phone] Michael Quiros MD Unavailable [phone] Mohan Rico MD Unavailable [phone] Betty Calvin Unavailable [phone] Sybil Alex [facility] Unavailable Unavailable Encounter Details Date Type Department Care Team (Latest Contact Info) Description 09/05/2016 Orders Only [facility]G CLINCONV ProviderKrzysztof MD [address] [place] [address] Social History Tobacco Use Types Packs/Day Years Used Date Smoking Tobacco: Never Alcohol Use Standard Drinks/Week Comments No 0 (1 standard drink = 0.6 oz pur e alcohol) Comments Unknown Sex and Gender Information Value Date Recorded Sex Assigned at Not on file Legal Sex Female 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 us Historical Provider Final Res ult documented in this encounter Visit Diagnoses Not on filedocumented in this encounter Additional Health Concerns Infection Onset Date Last Indicated Resolved Time COVID19 10/21/2024 10/21/2024 documented as of this encounter Care Teams Internal Affairs Investigator Relationship Specialty Start Date End Date Harry Jorgensen MD PCP - General 09/06/16 Taqueria Sullivan MD [address] [address] PCP - General 08/27/16 09/05/16 Truman Moody MD [address] [address] Grinder Setup Operator Cardiology 02/01/19 09/16/24 Michael Quiros MD [address] [place] [address] Referring Physician Interventional Cardiology 09/17/24 Mohan Rico MD [address] [facility] [address] [place] [address] Consulting Physician Pulmonary Disease 09/17/24 Betty Calvin PA [address] [facility] [address] [place] [address] Physician Process Server Orthopedic Surgery 10/08/24 Sybil Alex, [facility] Pharmacist Pharmacy 10/29/24 documented as of this encounter
--- OUTSIDE RECORDS SUMMARY | 2024-11-03 14:45 | XMS_ITS | Encounter Summary ---
Author Organization [facility] Facility Care Team Providers Care Gunstock Spray Unit Adjuster Name Role Phone Harry Jorgensen MD Primary Care Provider + Truman Moody MD Unavailable [phone] Michael Quiros MD Unavailable [phone] Mohan Rico MD Unavailable [phone] Betty Calvin Unavailable [phone] Sybli Alex [facility] Unavailable Unavailable Encounter Details Date Type Department Care Team (Latest Contact Info) Description 08/05/2017 Orders Only MMG CLINCONV ProviderKrzysztof MD [address] [place] [address] Social History Tobacco Use Types Packs/Day Years Used Date Smoking Tobacco: Never Alcohol Use Standard Drinks/Week Comments No 0 (1 standard drink = 0.6 oz pur e alcohol) Comments Unknown Sex and Gender Information Value Date Recorded Sex Assigned at Not on file Legal Sex Female 10:24 AM GROMMET MAN Gender Identity Female 01/15/2021 9:27 PM CDT Sexual Orientation Straight 01/15/2021 9: 27 PM CDT documented as of this encounter Plan of Treatment Not on file documented as of this encounter Procedures Procedure Name Priority Date/Time Associated Diagnosis Comments SCAN - LABS 08/05/2017 12:00 AM GROMMET MAN documented in this encounter Results * SCAN - LABS (08/05/2017 12:00 AM GROMMET MAN) Narrative 08/05/2017 12:00 AM GROMMET MAN Ordered by an unspecified provider. us Historical Provider Final Res ult documented in this encounter Visit Diagnoses Not on filedocumented in this encounter Additional Health Concerns Infection Onset Date Last Indicated Resolved Time COVID19 10/21/2024 10/21/2024 documented as of this encounter Care Teams Gunstock Spray Unit Adjuster Relationship Specialty Start Date End Date Harry Jorgensen MD PCP - General 09/06/16 Truman Moody MD Reed Or Wind Instrument Tuner Cardiology 02/01/19 09/16/24 Michael Quiros MD [address] [address] Referring Physician Interventional Cardiology 09/17/24 Mohan Rico MD [address] [facility] [address] [place] [address] Consulting Physician Pulmonary Disease 09/17/24 Betty Calvin PA [address] [facility] [address] [place] [address] Physician Laminator Printed Circuit Boards Orthopedic Surgery 10/08/24 Sybil Alex, [facility] Pharmacist Pharmacy 10/29/24 documented as of this encounter
--- OUTSIDE RECORDS SUMMARY | 2024-11-03 14:45 | XMS_ITS | Encounter Summary ---
Author Organization [facility] Facility Care Team Providers Care Licensed Psychologist Manager Name Role Phone Harry Jorgensen MD Primary Care Provider + Truman Moody MD Unavailable [phone] Michael Quiros MD Unavailable [phone] Mohan Rico MD Unavailable [phone] Betty Calvin Unavailable [phone] Sybil Alex [facility] Unavailable Unavailable Encounter Details Date Type Department Care Team (Latest Contact Info) Description 02/13/2017 Orders Only MMG CLINCONV ProviderKrzysztof MD [address] [place] [address] Social History Tobacco Use Types Packs/Day Years Used Date Smoking Tobacco: Never Alcohol Use Standard Drinks/Week Comments No 0 (1 standard drink = 0.6 oz pur e alcohol) Comments Unknown Sex and Gender Information Value Date Recorded Sex Assigned at Not on file Legal Sex Female 10:24 AM MOLD CLOSER Gender Identity Female 01/15/2021 9:27 PM CDT Sexual Orientation Straight 01/15/2021 9: 27 PM CDT documented as of this encounter Plan of Treatment Not on file documented as of this encounter Procedures Procedure Name Priority Date/Time Associated Diagnosis Comments SCAN - LABS 02/13/2017 12:00 AM CDT documented in this encounter Results * SCAN - LABS (02/13/2017 12:00 AM CDT) Narrative 02/13/2017 12:00 AM CDT Ordered by an unspecified provider. us Historical Provider Final Res ult documented in this encounter Visit Diagnoses Not on filedocumented in this encounter Additional Health Concerns Infection Onset Date Last Indicated Resolved Time COVID19 10/21/2024 10/21/2024 documented as of this encounter Care Teams Licensed Psychologist Manager Relationship Specialty Start Date End Date Harry Jorgensen MD PCP - General 09/06/16 Truman Moody MD Deputy Insurance Commissioner Cardiology 02/01/19 09/16/24 Michael Quiros MD [address] [address] Referring Physician Interventional Cardiology 09/17/24 Mohan Rico MD [address] [facility] [address] [place] [address] [place] [address] Consulting Physician Pulmonary Disease 09/17/24 Betty Calvin PA [address] [facility] [address] [place] [place] [address] Physician Emergency Vehicle Technician Orthopedic Surgery 10/08/24 Sybil Alex, [facility] Pharmacist Pharmacy 10/29/24 documented as of this encounter
--- OUTSIDE RECORDS SUMMARY | 2024-11-03 14:45 | XMS_ITS | Encounter Summary ---
Author Organization [facility] Facility Care Team Providers Care Utility Bagger Name Role Phone Harry Jorgensen MD Primary Care Provider + Truman Moody MD Unavailable [phone] Michael Quiros MD Unavailable [phone] Mohan Rico MD Unavailable [phone] Betty Calvin Unavailable [phone] Sybil Alex [facility] Unavailable Unavailable Encounter Details Date Type Department Care Team (Latest Contact Info) Description 06/18/2017 Orders Only MMG CLINCONV ProviderKrzysztof MD [address] [place] [address] Social History Tobacco Use Types Packs/Day Years Used Date Smoking Tobacco: Never Alcohol Use Standard Drinks/Week Comments No 0 (1 standard drink = 0.6 oz pur e alcohol) Comments Unknown Sex and Gender Information Value Date Recorded Sex Assigned at Not on file Legal Sex Female 10:24 AM THINNER SPRAYER Gender Identity Female 01/15/2021 9:27 PM CDT Sexual Orientation Straight 01/15/2021 9: 27 PM CDT documented as of this encounter Plan of Treatment Not on file documented as of this encounter Procedures Procedure Name Priority Date/Time Associated Diagnosis Comments PROCEDURE - RESULT 06/18/2017 12 :00 AM THINNER SPRAYER PROCEDURE - RESULT 06/18/2017 12 :00 AM THINNER SPRAYER documented in this encounter Results * PROCEDURE - RESULT (06/18/2017 12:00 AM THINNER SPRAYER) Narrative 06/18/2017 12:00 AM THINNER SPRAYER Ordered by an unspecified provider. us Historical Provider Final Res ult * PROCEDURE - RESULT (06/18/2017 12:00 AM THINNER SPRAYER) Narrative 06/18/2017 12:00 AM THINNER SPRAYER Ordered by an unspecified provider. us Historical Provider Final Res ult documented in this encounter Visit Diagnoses Not on filedocumented in this encounter Additional Health Concerns Infection Onset Date Last Indicated Resolved Time COVID19 10/21/2024 10/21/2024 documented as of this encounter Care Teams Utility Bagger Relationship Specialty Start Date End Date Harry Jorgensen MD PCP - General 09/06/16 Truman Moody MD Catheter Finisher And Inspector Cardiology 02/01/19 09/16/24 Michael Quiros MD [address] [place] [address] Referring Physician Interventional Cardiology 09/17/24 Mohan Rico MD [address] [facility] [address] [place] [address] Consulting Physician Pulmonary Disease 09/17/24 Betty Calvin PA [address] [facility] [address] [place] [address] Physician Ophthalmic Assistant Orthopedic Surgery 10/08/24 Sybil Alex, [facility] Pharmacist Pharmacy 10/29/24 documented as of this encounter
--- OUTSIDE RECORDS SUMMARY | 2024-11-03 14:45 | XMS_ITS | Encounter Summary ---
Author Organization [facility] Facility Care Team Providers Care Community Development Specialist Name Role Phone Harry Jorgensen MD Primary Care Provider + Truman Moody MD Unavailable [phone] Michael Quiros MD Unavailable [phone] Mohan Rico MD Unavailable [phone] Betty Calvin Unavailable [phone] Sybli Alex [facility] Unavailable Unavailable Encounter Details Date Type Department Care Team (Latest Contact Info) Description 09/25/2016 Orders Only MMG CLINCONV ProviderKrzysztof MD [address] [place] [address] Social History Tobacco Use Types Packs/Day Years Used Date Smoking Tobacco: Never Alcohol Use Standard Drinks/Week Comments No 0 (1 standard drink = 0.6 oz pur e alcohol) Comments Unknown Sex and Gender Information Value Date Recorded Sex Assigned at Not on file Legal Sex Female 10:24 AM RADIO TIME BUYER Gender Identity Female 01/15/2021 9:27 PM CDT Sexual Orientation Straight 01/15/2021 9: 27 PM CDT documented as of this encounter Plan of Treatment Not on file documented as of this encounter Procedures Procedure Name Priority Date/Time Associated Diagnosis Comments CARDIOLOGY REPORT 09/25/2016 12: 00 AM CDT documented in this encounter Results * CARDIOLOGY REPORT (09/25/2016 12:00 AM CDT) Anatomical Region Laterality Modality Other Narrative 09/25/2016 12:00 AM CDT Ordered by an unspecified provider. us Historical Provider [facility] JACKI JOHNSON Final Result documented in this encounter Visit Diagnoses Not on filedocumented in this encounter Additional Health Concerns Infection Onset Date Last Indicated Resolved Time COVID19 10/21/2024 10/21/2024 documented as of this encounter Care Teams Community Development Specialist Relationship Specialty Start Date End Date Harry Jorgensen MD PCP - General 09/06/16 Truman Moody MD Cylinder Block Hole Reliner Cardiology 02/01/19 09/16/24 Michael Quiros MD [address] [place] [address] [address] [place] [address] Referring Physician Interventional Cardiology 09/17/24 Mohan Rico MD [address] [facility] [address] [place] [address] Consulting Physician Pulmonary Disease 09/17/24 Betty Calvin PA [address] [facility] [address] [place] [address] Physician Director Supply Chain Orthopedic Surgery 10/08/24 Sybil Alex, [facility] Pharmacist Pharmacy 10/29/24 documented as of this encounter
--- OUTSIDE RECORDS SUMMARY | 2024-11-03 14:45 | XMS_ITS | Encounter Summary ---
Author Organization [facility] Facility Care Team Providers Care Copper Plate Lithographer Name Role Phone Harry Jorgensen MD Primary Care Provider + Truman Moody MD Unavailable [phone] Michael Quiros MD Unavailable [phone] Mohan Rico MD Unavailable [phone] Betty Calvin Unavailable [phone] Sybil Alex [facility] Unavailable Unavailable Encounter Details Date Type Department Care Team (Latest Contact Info) Description 10/29/2017 Orders Only [facility] CLINCONV ProviderKrzysztof MD [address] [place] [address] Social History Tobacco Use Types Packs/Day Years Used Date Smoking Tobacco: Never Alcohol Use Standard Drinks/Week Comments No 0 (1 standard drink = 0.6 oz pur e alcohol) Comments Unknown Sex and Gender Information Value Date Recorded Sex Assigned at Not on file Legal Sex Female 10:24 AM ELECTRIC DETECTOR OPERATOR Gender Identity Female 01/15/2021 9:27 PM CDT Sexual Orientation Straight 01/15/2021 9: 27 PM CDT documented as of this encounter Plan of Treatment Not on file documented as of this encounter Procedures Procedure Name Priority Date/Time Associated Diagnosis Comments CARDIOLOGY REPORT 10/29/2017 12: 00 AM CDT documented in this encounter Results * CARDIOLOGY REPORT (10/29/2017 12:00 AM CDT) Anatomical Region Laterality Modality Other Narrative 10/29/2017 12:00 AM CDT Ordered by an unspecified provider. us Historical Provider [facility] JACKI JOHNSON Final Result documented in this encounter Visit Diagnoses Not on filedocumented in this encounter Additional Health Concerns Infection Onset Date Last Indicated Resolved Time COVID19 10/21/2024 10/21/2024 documented as of this encounter Care Teams Copper Plate Lithographer Relationship Specialty Start Date End Date Harry Jorgensen MD PCP - General 09/06/16 Truman Moody MD Tea Taster Cardiology 02/01/19 09/16/24 Michael Quiros MD [address] [place] [address] 3 [place] [address] Referring Physician Interventional Cardiology 09/17/24 Mohan Rico MD [address] [facility] [address] [place] [address] Consulting Physician Pulmonary Disease 09/17/24 Betty Calvin PA [address] [facility] [address] [place] [address] Physician Brazing Machine Operator Orthopedic Surgery 10/08/24 Sybil Alex, [facility] Pharmacist Pharmacy 10/29/24 documented as of this encounter
--- OUTSIDE RECORDS SUMMARY | 2024-11-03 14:45 | XMS_ITS | Encounter Summary ---
Author Organization [facility] Facility Care Team Providers Care Tenant Coordinator Name Role Phone Harry Jorgensen MD Primary Care Provider + Truman Moody MD Unavailable [phone] Michael Quiros MD Unavailable [phone] Mohan Rico MD Unavailable [phone] Betty Calvin Unavailable [phone] Sybil Alex [facility] Unavailable Unavailable Encounter Details Date Type Department Care Team (Latest Contact Info) Description 10/31/2016 Orders Only [facility] CLINCONV ProviderKrzysztof MD [address] [place] [address] Social History Tobacco Use Types Packs/Day Years Used Date Smoking Tobacco: Never Alcohol Use Standard Drinks/Week Comments No 0 (1 standard drink = 0.6 oz pur e alcohol) Comments Unknown Sex and Gender Information Value Date Recorded Sex Assigned at Not on file Legal Sex Female 10:24 AM HOUSEKEEPING ASSISTANT Gender Identity Female 01/15/2021 9:27 PM CDT Sexual Orientation Straight 01/15/2021 9: 27 PM CDT documented as of this encounter Plan of Treatment Not on file documented as of this encounter Procedures Procedure Name Priority Date/Time Associated Diagnosis Comments SCAN - LABS 10/31/2016 12:00 AM CDT documented in this encounter Results * SCAN - LABS (10/31/2016 12:00 AM CDT) Narrative 10/31/2016 12:00 AM CDT Ordered by an unspecified provider. us Historical Provider Final Res ult documented in this encounter Visit Diagnoses Not on filedocumented in this encounter Additional Health Concerns Infection Onset Date Last Indicated Resolved Time COVID19 10/21/2024 10/21/2024 documented as of this encounter Care Teams Tenant Coordinator Relationship Specialty Start Date End Date Harry Jorgensen MD PCP - General 09/06/16 Truman Moody MD Brush Holder Assembler Cardiology 02/01/19 09/16/24 Michael Quiros MD [address] [address] Referring Physician Interventional Cardiology 09/17/24 Mohan Rico MD [address] [facility] [address] [place] [address] Consulting Physician Pulmonary Disease 09/17/24 Betty Calvin PA [address] [facility] [address] [place] [address] Physician Window Glazier Orthopedic Surgery 10/08/24 Sybil Alex, [facility] Pharmacist Pharmacy 10/29/24 documented as of this encounter
--- OUTSIDE RECORDS SUMMARY | 2024-11-03 14:45 | XMS_ITS | Encounter Summary ---
Author Organization [facility] Facility Care Team Providers Care Stencil Typist Name Role Phone Harry Jorgensen MD Primary Care Provider + Truman Moody MD Unavailable [phone] Michael Quiros MD Unavailable [phone] Mohan Rico MD Unavailable [phone] Betty Calvin Unavailable [phone] Sybil Alex [facility] Unavailable Unavailable Encounter Details Date Type Department Care Team (Latest Contact Info) Description 11/10/2017 Orders Only [facility] CLINCONV ProviderKrzysztof MD [address] [place] [address] Social History Tobacco Use Types Packs/Day Years Used Date Smoking Tobacco: Never Alcohol Use Standard Drinks/Week Comments No 0 (1 standard drink = 0.6 oz pur e alcohol) Comments Unknown Sex and Gender Information Value Date Recorded Sex Assigned at Not on file Legal Sex Female 10:24 AM OPTICAL MECHANIC Gender Identity Female 01/15/2021 9:27 PM CDT Sexual Orientation Straight 01/15/2021 9: 27 PM CDT documented as of this encounter Plan of Treatment Not on file documented as of this encounter Procedures Procedure Name Priority Date/Time Associated Diagnosis Comments SCAN - LABS 11/10/2017 12:00 AM CDT documented in this encounter Results * SCAN - LABS (11/10/2017 12:00 AM CDT) Narrative 11/10/2017 12:00 AM CDT Ordered by an unspecified provider. us Historical Provider Final Res ult documented in this encounter Visit Diagnoses Not on filedocumented in this encounter Additional Health Concerns Infection Onset Date Last Indicated Resolved Time COVID19 10/21/2024 10/21/2024 documented as of this encounter Care Teams Stencil Typist Relationship Specialty Start Date End Date Harry Jorgensen MD PCP - General 09/06/16 Truman Moody MD Philosophy Faculty Cardiology 02/01/19 09/16/24 Michael Quiros MD [address] [address] Referring Physician Interventional Cardiology 09/17/24 Mohan Rico MD [address] [facility] [address] [place] [address] Consulting Physician Pulmonary Disease 09/17/24 Betty Calvin PA [address] [facility] [address] [place] [address] Physician Technical Cable Jointer Orthopedic Surgery 10/08/24 Sybil Alex, [facility] Pharmacist Pharmacy 10/29/24 documented as of this encounter
--- OUTSIDE RECORDS SUMMARY | 2024-11-03 14:45 | XMS_ITS | Encounter Summary ---
Author Organization [facility] Facility Care Team Providers Care Accounting Machine Operator Name Role Phone Harry Jorgensen MD Primary Care Provider + Truman Moody MD Unavailable [phone] Michael Quiros MD Unavailable [phone] Mohan Rico MD Unavailable [phone] Betty Calvin Unavailable [phone] Sybil Alex [facility] Unavailable Unavailable Encounter Details Date Type Department Care Team (Latest Contact Info) Description 07/29/2017 Orders Only [facility] CLINCONV ProviderKrzysztof MD [address] [place] [address] Social History Tobacco Use Types Packs/Day Years Used Date Smoking Tobacco: Never Alcohol Use Standard Drinks/Week Comments No 0 (1 standard drink = 0.6 oz pur e alcohol) Comments Unknown Sex and Gender Information Value Date Recorded Sex Assigned at Not on file Legal Sex Female 10:24 AM KINESIOTHERAPIST Gender Identity Female 01/15/2021 9:27 PM CDT Sexual Orientation Straight 01/15/2021 9: 27 PM CDT documented as of this encounter Plan of Treatment Not on file documented as of this encounter Procedures Procedure Name Priority Date/Time Associated Diagnosis Comments SCAN - LABS 07/29/2017 12:00 AM KINESIOTHERAPIST documented in this encounter Results * SCAN - LABS (07/29/2017 12:00 AM KINESIOTHERAPIST) Narrative 07/29/2017 12:00 AM KINESIOTHERAPIST Ordered by an unspecified provider. us Historical Provider Final Res ult documented in this encounter Visit Diagnoses Not on filedocumented in this encounter Additional Health Concerns Infection Onset Date Last Indicated Resolved Time COVID19 10/21/2024 10/21/2024 documented as of this encounter Care Teams Accounting Machine Operator Relationship Specialty Start Date End Date Harry Jorgensen MD PCP - General 09/06/16 Truman Moody MD Tentering Machine Feeder Cardiology 02/01/19 09/16/24 Michael Quiros MD [address] [address] Referring Physician Interventional Cardiology 09/17/24 Mohan Rico MD [address] [facility] [address] [place] [address] Consulting Physician Pulmonary Disease 09/17/24 Betty Calvin PA [address] [facility] [address] [place] [address] Physician Lead Generation Marketing Manager Orthopedic Surgery 10/08/24 Sybil Alex, [facility] Pharmacist Pharmacy 10/29/24 documented as of this encounter
--- OUTSIDE RECORDS SUMMARY | 2024-11-03 14:45 | XMS_ITS | Encounter Summary ---
Author Organization [facility] Facility Care Team Providers Care Stucco Applicator Name Role Phone Harry Jorgensen MD Primary Care Provider + Truman Moody MD Unavailable [phone] Michael Quiros MD Unavailable [phone] Mohan Rico MD Unavailable [phone] Betty Calvin Unavailable [phone] Sybil Alex [facility] Unavailable Unavailable Encounter Details Date Type Department Care Team (Latest Contact Info) Description 08/21/2017 Orders Only [facility] CLINCONV ProviderKrzysztof MD [address] [place] [address] Social History Tobacco Use Types Packs/Day Years Used Date Smoking Tobacco: Never Alcohol Use Standard Drinks/Week Comments No 0 (1 standard drink = 0.6 oz pur e alcohol) Comments Unknown Sex and Gender Information Value Date Recorded Sex Assigned at Not on file Legal Sex Female 10:24 AM MANAGER ORACLE DATABASE Gender Identity Female 01/15/2021 9:27 PM CDT Sexual Orientation Straight 01/15/2021 9: 27 PM CDT documented as of this encounter Plan of Treatment Not on file documented as of this encounter Procedures Procedure Name Priority Date/Time Associated Diagnosis Comments SCAN - LABS 08/21/2017 12:00 AM CDT documented in this encounter Results * SCAN - LABS (08/21/2017 12:00 AM CDT) Narrative 08/21/2017 12:00 AM CDT Ordered by an unspecified provider. us Historical Provider Final Res ult documented in this encounter Visit Diagnoses Not on filedocumented in this encounter Additional Health Concerns Infection Onset Date Last Indicated Resolved Time COVID19 10/21/2024 10/21/2024 documented as of this encounter Care Teams Stucco Applicator Relationship Specialty Start Date End Date Harry Jorgensen MD PCP - General 09/06/16 Truman Moody MD Operations Supervisor Chemical Cleaning Cardiology 02/01/19 09/16/24 Michael Quiros MD [address] [address] Referring Physician Interventional Cardiology 09/17/24 Mohan Rico MD [address] [facility] [address] [place] [address] Consulting Physician Pulmonary Disease 09/17/24 Betty Calvin PA [address] [facility] [address] [place] [address] Physician Paralegal Legal Secretary Orthopedic Surgery 10/08/24 Sybil Alex, [facility] Pharmacist Pharmacy 10/29/24 documented as of this encounter
--- OUTSIDE RECORDS SUMMARY | 2024-11-03 14:45 | XMS_ITS | Encounter Summary ---
Author Organization [facility] Facility Care Team Providers Care Diaper Machine Tender Name Role Phone Harry Jorgensen MD Primary Care Provider + Truman Moody MD Unavailable [phone] Michael Quiros MD Unavailable [phone] Mohan Rico MD Unavailable [phone] Betty Calvin Unavailable [phone] Sybil Alex [facility] Unavailable Unavailable Encounter Details Date Type Department Care Team (Latest Contact Info) Description 12/16/2016 Orders Only [facility] CLINCONV ProviderKrzysztof MD [address] [place] [address] Social History Tobacco Use Types Packs/Day Years Used Date Smoking Tobacco: Never Alcohol Use Standard Drinks/Week Comments No 0 (1 standard drink = 0.6 oz pur e alcohol) Comments Unknown Sex and Gender Information Value Date Recorded Sex Assigned at Not on file Legal Sex Female 10:24 AM FINGERER Gender Identity Female 01/15/2021 9:27 PM CDT Sexual Orientation Straight 01/15/2021 9: 27 PM CDT documented as of this encounter Plan of Treatment Not on file documented as of this encounter Procedures Procedure Name Priority Date/Time Associated Diagnosis Comments SCAN - LABS 12/16/2016 12:00 AM CDT documented in this encounter Results * SCAN - LABS (12/16/2016 12:00 AM CDT) Narrative 12/16/2016 12:00 AM CDT Ordered by an unspecified provider. us Historical Provider Final Res ult documented in this encounter Visit Diagnoses Not on filedocumented in this encounter Additional Health Concerns Infection Onset Date Last Indicated Resolved Time COVID19 10/21/2024 10/21/2024 documented as of this encounter Care Teams Diaper Machine Tender Relationship Specialty Start Date End Date Harry Jorgensen MD PCP - General 09/06/16 Truman Moody MD Cushion Sewer Cardiology 02/01/19 09/16/24 Michael Quiros MD [address] [address] Referring Physician Interventional Cardiology 09/17/24 Mohan Rico MD [address] [facility] [address] [place] [address] Consulting Physician Pulmonary Disease 09/17/24 Betty Calvin PA [address] [facility] [address] [place] [address] Physician Mastercam Programmer Orthopedic Surgery 10/08/24 Sybil Alex, [facility] Pharmacist Pharmacy 10/29/24 documented as of this encounter
--- OUTSIDE RECORDS SUMMARY | 2024-11-03 14:45 | XMS_ITS | Encounter Summary ---
Author Organization [facility] Facility Care Team Providers Care Powerhouse Helper Name Role Phone Harry Jorgensen MD Primary Care Provider + Truman Moody MD Unavailable [phone] Michael Quiros MD Unavailable [phone] Mohan Rico MD Unavailable [phone] Betty Calvin Unavailable [phone] Sybil Alex [facility] Unavailable Unavailable Encounter Details Date Type Department Care Team (Latest Contact Info) Description 10/16/2016 Orders Only [facility] CLINCONV ProviderKrzysztof MD [address] [place] [address] Social History Tobacco Use Types Packs/Day Years Used Date Smoking Tobacco: Never Alcohol Use Standard Drinks/Week Comments No 0 (1 standard drink = 0.6 oz pur e alcohol) Comments Unknown Sex and Gender Information Value Date Recorded Sex Assigned at Not on file Legal Sex Female 10:24 AM FINANCE CONSULTANT Gender Identity Female 01/15/2021 9:27 PM CDT Sexual Orientation Straight 01/15/2021 9: 27 PM CDT documented as of this encounter Plan of Treatment Not on file documented as of this encounter Procedures Procedure Name Priority Date/Time Associated Diagnosis Comments PROCEDURE - RESULT 10/16/2016 12 :00 AM CDT documented in this encounter Results * PROCEDURE - RESULT (10/16/2016 12:00 AM CDT) Narrative 10/16/2016 12:00 AM CDT Ordered by an unspecified provider. us Historical Provider Final Res ult documented in this encounter Visit Diagnoses Not on filedocumented in this encounter Additional Health Concerns Infection Onset Date Last Indicated Resolved Time COVID19 10/21/2024 10/21/2024 documented as of this encounter Care Teams Powerhouse Helper Relationship Specialty Start Date End Date Harry Jorgensen MD PCP - General 09/06/16 Truman Moody MD Firewall Security Engineer Cardiology 02/01/19 09/16/24 Michael Quiros MD [address] [address] Referring Physician Interventional Cardiology 09/17/24 Mohan Rico MD [address] [facility] [address] [place] [address] Consulting Physician Pulmonary Disease 09/17/24 Betty Calvin PA [address] [facility] [address] [place] [address] Physician Value Stream Manager Orthopedic Surgery 10/08/24 Sybil Alex, [facility] Pharmacist Pharmacy 10/29/24 documented as of this encounter
--- OUTSIDE RECORDS SUMMARY | 2024-11-03 14:45 | XMS_ITS | Encounter Summary ---
Author Organization [facility] Facility Care Team Providers Care Trim Mechanic Name Role Phone Harry Jorgensen MD Primary Care Provider + Truman Moody MD Unavailable [phone] Michael Quiros MD Unavailable [phone] Mohan Rico MD Unavailable [phone] Betty Calvin Unavailable [phone] Sybil Alex [facility] Unavailable Unavailable Encounter Details Date Type Department Care Team (Latest Contact Info) Description 01/15/2017 Orders Only [facility] CLINCONV ProviderKrzysztof MD [address] [place] [address] Social History Tobacco Use Types Packs/Day Years Used Date Smoking Tobacco: Never Alcohol Use Standard Drinks/Week Comments No 0 (1 standard drink = 0.6 oz pur e alcohol) Comments Unknown Sex and Gender Information Value Date Recorded Sex Assigned at Not on file Legal Sex Female 10:24 AM LOCAL HAZMAT DRIVER Gender Identity Female 01/15/2021 9:27 PM CDT Sexual Orientation Straight 01/15/2021 9: 27 PM CDT documented as of this encounter Plan of Treatment Not on file documented as of this encounter Procedures Procedure Name Priority Date/Time Associated Diagnosis Comments CARDIOLOGY REPORT 01/15/2017 12: 00 AM CDT documented in this encounter Results * CARDIOLOGY REPORT (01/15/2017 12:00 AM CDT) Anatomical Region Laterality Modality Other Narrative 01/15/2017 12:00 AM CDT Ordered by an unspecified provider. us Historical Provider [facility] JACKI JOHNSON Final Result documented in this encounter Visit Diagnoses Not on filedocumented in this encounter Additional Health Concerns Infection Onset Date Last Indicated Resolved Time COVID19 10/21/2024 10/21/2024 documented as of this encounter Care Teams Trim Mechanic Relationship Specialty Start Date End Date Harry Jorgensen MD PCP - General 09/06/16 Truman Moody MD Public Relations Senior Associate Cardiology 02/01/19 09/16/24 Michael Quiros MD [address] [place] [address] 3 [place] [address] Referring Physician Interventional Cardiology 09/17/24 Mohan Rico MD [address] [facility] [address] [place] [address] Consulting Physician Pulmonary Disease 09/17/24 Betty Calvin PA [address] [facility] [address] [place] [address] Physician Broomcorn Sorter Orthopedic Surgery 10/08/24 Sybil Alex, [facility] Pharmacist Pharmacy 10/29/24 documented as of this encounter
--- OUTSIDE RECORDS SUMMARY | 2024-11-03 14:45 | XMS_ITS | Encounter Summary ---
Author Organization [facility] Facility Care Team Providers Care Production Superintendent Name Role Phone Harry Jorgensen MD Primary Care Provider + Truman Moody MD Unavailable [phone] Michael Quiros MD Unavailable [phone] Mohan Rico MD Unavailable [phone] Betty Calvin Unavailable [phone] Sybil Alex [facility] Unavailable Unavailable Encounter Details Date Type Department Care Team (Latest Contact Info) Description 01/17/2018 Orders Only [facility]G CLINCONV ProviderKrzysztof MD [address] [place] [address] Social History Tobacco Use Types Packs/Day Years Used Date Smoking Tobacco: Never Alcohol Use Standard Drinks/Week Comments No 0 (1 standard drink = 0.6 oz pur e alcohol) Comments Unknown Sex and Gender Information Value Date Recorded Sex Assigned at Not on file Legal Sex Female 10:24 AM ANALYTICS ASSOCIATE Gender Identity Female 01/15/2021 9:27 PM CDT Sexual Orientation Straight 01/15/2021 9: 27 PM CDT documented as of this encounter Plan of Treatment Not on file documented as of this encounter Procedures Procedure Name Priority Date/Time Associated Diagnosis Comments SCAN - LABS 01/17/2018 12:00 AM CDT documented in this encounter Results * SCAN - LABS (01/17/2018 12:00 AM CDT) Narrative 01/17/2018 12:00 AM CDT Ordered by an unspecified provider. us Historical Provider Final Res ult documented in this encounter Visit Diagnoses Not on filedocumented in this encounter Additional Health Concerns Infection Onset Date Last Indicated Resolved Time COVID19 10/21/2024 10/21/2024 documented as of this encounter Care Teams Production Superintendent Relationship Specialty Start Date End Date Harry Jorgensen MD PCP - General 09/06/16 Truman Moody MD Security Dispatcher Cardiology 02/01/19 09/16/24 Michael Quiros MD [address] [address] Referring Physician Interventional Cardiology 09/17/24 Mohan Rico MD [address] [facility] [address] [place] [address] Consulting Physician Pulmonary Disease 09/17/24 Betty Calvin PA [address] [facility] [address] [place] [address] Physician Binder Layer Orthopedic Surgery 10/08/24 Sybil Alex, [facility] Pharmacist Pharmacy 10/29/24 documented as of this encounter
--- OUTSIDE RECORDS SUMMARY | 2024-11-03 14:45 | XMS_ITS | Encounter Summary ---
Author Organization [facility] Facility Care Team Providers Care Foreclosure Home Inspector Name Role Phone Harry Jorgensen MD Primary Care Provider + Truman Moody MD Unavailable [phone] Michael Quiros MD Unavailable [phone] Mohan Rico MD Unavailable [phone] Betty Calvin Unavailable [phone] Sybil Alex [facility] Unavailable Unavailable Encounter Details Date Type Department Care Team (Latest Contact Info) Description 11/19/2016 Orders Only [facility]G CLINCONV ProviderKrzysztof MD [address] [place] [address] Social History Tobacco Use Types Packs/Day Years Used Date Smoking Tobacco: Never Alcohol Use Standard Drinks/Week Comments No 0 (1 standard drink = 0.6 oz pur e alcohol) Comments Unknown Sex and Gender Information Value Date Recorded Sex Assigned at Not on file Legal Sex Female 10:24 AM BEAUTY ARTIST Gender Identity Female 01/15/2021 9:27 PM CDT Sexual Orientation Straight 01/15/2021 9: 27 PM CDT documented as of this encounter Plan of Treatment Not on file documented as of this encounter Procedures Procedure Name Priority Date/Time Associated Diagnosis Comments SCAN - LABS 11/19/2016 12:00 AM CDT documented in this encounter Results * SCAN - LABS (11/19/2016 12:00 AM CDT) Narrative 11/19/2016 12:00 AM CDT Ordered by an unspecified provider. us Historical Provider Final Res ult documented in this encounter Visit Diagnoses Not on filedocumented in this encounter Additional Health Concerns Infection Onset Date Last Indicated Resolved Time COVID19 10/21/2024 10/21/2024 documented as of this encounter Care Teams Foreclosure Home Inspector Relationship Specialty Start Date End Date Harry Jorgensen MD PCP - General 09/06/16 Truman Moody MD Hotbed Transfer Operator Cardiology 02/01/19 09/16/24 Michael Quiros MD [address] [address] Referring Physician Interventional Cardiology 09/17/24 Mohan Rico MD [address] [facility] [address] [place] [address] [place] [address] Consulting Physician Pulmonary Disease 09/17/24 Betty Calvin PA [address] [facility] [address] [place] [address] [place] [address] Physician Roofer Gypsum Orthopedic Surgery 10/08/24 Sybil Alex, [facility] Pharmacist Pharmacy 10/29/24 documented as of this encounter
--- OUTSIDE RECORDS SUMMARY | 2024-11-03 14:45 | XMS_ITS | Encounter Summary ---
Author Organization [facility] Facility Care Team Providers Care First Press Operator Name Role Phone Harry Jorgensen MD Primary Care Provider + Truman Moody MD Unavailable [phone] Michael Quiros MD Unavailable [phone] Mohan Rico MD Unavailable [phone] Betty Calvin Unavailable [phone] Sybil Alex [facility] Unavailable Unavailable Encounter Details Date Type Department Care Team (Latest Contact Info) Description 01/16/2018 Orders Only MMG CLINCONV ProviderKrzysztof MD [address] [place] [address] Social History Tobacco Use Types Packs/Day Years Used Date Smoking Tobacco: Never Alcohol Use Standard Drinks/Week Comments No 0 (1 standard drink = 0.6 oz pur e alcohol) Comments Unknown Sex and Gender Information Value Date Recorded Sex Assigned at Not on file Legal Sex Female 10:24 AM NEEDLE LOOM WEAVER Gender Identity Female 01/15/2021 9:27 PM CDT Sexual Orientation Straight 01/15/2021 9: 27 PM CDT documented as of this encounter Plan of Treatment Not on file documented as of this encounter Procedures Procedure Name Priority Date/Time Associated Diagnosis Comments SCAN - LABS 01/16/2018 12:00 AM CDT SCAN - LABS 01/16/2018 12:00 AM CDT documented in this encounter Results * SCAN - LABS (01/16/2018 12:00 AM CDT) Narrative 01/16/2018 12:00 AM CDT Ordered by an unspecified provider. Historical Provider Final Res ult * SCAN - LABS (01/16/2018 12:00 AM CDT) Narrative 01/16/2018 12:00 AM CDT Ordered by an unspecified provider. Historical Provider Final Res ult documented in this encounter Visit Diagnoses Not on filedocumented in this encounter Additional Health Concerns Infection Onset Date Last Indicated Resolved Time COVID19 10/21/2024 10/21/2024 documented as of this encounter Care Teams First Press Operator Relationship Specialty Start Date End Date Harry Jorgensen MD PCP - General 09/06/16 Truman Moody MD Music Adapter Cardiology 02/01/19 09/16/24 Michael Quiros MD [address] [place] [address] Referring Physician Interventional Cardiology 09/17/24 Mohan Rico MD [address] [facility] [address] [place] [address] Consulting Physician Pulmonary Disease 09/17/24 Betty Calvin PA [address] [facility] [address] [place] [address] Physician Director Of Food And Beverage Services Orthopedic Surgery 10/08/24 Sybil Alex, [facility] Pharmacist Pharmacy 10/29/24 documented as of this encounter
--- OUTSIDE RECORDS SUMMARY | 2024-11-03 14:45 | XMS_ITS | Encounter Summary ---
Author Organization [facility] Facility Care Team Providers Care Drop Hammer Mechanic Name Role Phone Harry Jorgensen MD Primary Care Provider + Truman Moody MD Unavailable [phone] Michael Quiros MD Unavailable [phone] Mohan Rico MD Unavailable [phone] Betty Calvin Unavailable [phone] Sybil Alex [facility] Unavailable Unavailable Encounter Details Date Type Department Care Team (Latest Contact Info) Description 12/09/2017 Orders Only MMG CLINCONV ProviderKrzysztof MD [address] [place] [address] Social History Tobacco Use Types Packs/Day Years Used Date Smoking Tobacco: Never Alcohol Use Standard Drinks/Week Comments No 0 (1 standard drink = 0.6 oz pur e alcohol) Comments Unknown Sex and Gender Information Value Date Recorded Sex Assigned at Not on file Legal Sex Female 10:24 AM CASINO GAMING INSPECTOR Gender Identity Female 01/15/2021 9:27 PM CDT Sexual Orientation Straight 01/15/2021 9: 27 PM CDT documented as of this encounter Plan of Treatment Not on file documented as of this encounter Procedures Procedure Name Priority Date/Time Associated Diagnosis Comments SCAN - LABS 12/09/2017 12:00 AM CDT documented in this encounter Results * SCAN - LABS (12/09/2017 12:00 AM CDT) Narrative 12/09/2017 12:00 AM CDT Ordered by an unspecified provider. us Historical Provider Final Res ult documented in this encounter Visit Diagnoses Not on filedocumented in this encounter Additional Health Concerns Infection Onset Date Last Indicated Resolved Time COVID19 10/21/2024 10/21/2024 documented as of this encounter Care Teams Drop Hammer Mechanic Relationship Specialty Start Date End Date Harry oJrgensen MD PCP - General 09/06/16 Truman Moody MD Resident Director Cardiology 02/01/19 09/16/24 Michael Quiros MD [address] [address] Referring Physician Interventional Cardiology 09/17/24 Mohan Rico MD [address] [facility] [address] [place] [address] [place] [address] Consulting Physician Pulmonary Disease 09/17/24 Betty Calvin PA [address] [facility] [address] [place] [address] [place] [address] Physician Azure Principal Solution Specialist Orthopedic Surgery 10/08/24 Sybil Alex, [facility] Pharmacist Pharmacy 10/29/24 documented as of this encounter
--- OUTSIDE RECORDS SUMMARY | 2024-11-03 14:46 | XMS_ITS | Encounter Summary ---
Author Organization [facility] Facility Care Team Providers Care Hospitality Housekeeper Name Role Phone Harry Jorgensen MD Primary Care Provider + Truman Moody MD Unavailable [phone] Michael Quiros MD Unavailable [phone] Mohan Rico MD Unavailable [phone] Betty Calvin Unavailable [phone] Sybil Alex [facility] Unavailable Unavailable Encounter Details Date Type Department Care Team (Latest Contact Info) Description 04/18/2017 Orders Only MMG CLINCONV ProviderKrzysztof MD [address] [place] [address] Social History Tobacco Use Types Packs/Day Years Used Date Smoking Tobacco: Never Alcohol Use Standard Drinks/Week Comments No 0 (1 standard drink = 0.6 oz pur e alcohol) Comments Unknown Sex and Gender Information Value Date Recorded Sex Assigned at Not on file Legal Sex Female 10:24 AM POISER Gender Identity Female 01/15/2021 9:27 PM CDT Sexual Orientation Straight 01/15/2021 9: 27 PM CDT documented as of this encounter Plan of Treatment Not on file documented as of this encounter Procedures Procedure Name Priority Date/Time Associated Diagnosis Comments SCAN - LABS 04/18/2017 12:00 AM POISER documented in this encounter Results * SCAN - LABS (04/18/2017 12:00 AM POISER) Narrative 04/18/2017 12:00 AM POISER Ordered by an unspecified provider. us Historical Provider Final Res ult documented in this encounter Visit Diagnoses Not on filedocumented in this encounter Additional Health Concerns Infection Onset Date Last Indicated Resolved Time COVID19 10/21/2024 10/21/2024 documented as of this encounter Care Teams Hospitality Housekeeper Relationship Specialty Start Date End Date Harry Jorgensen MD PCP - General 09/06/16 Truman Moody MD Racetrack Steward Cardiology 02/01/19 09/16/24 Michael Quiros MD [address] [address] Referring Physician Interventional Cardiology 09/17/24 Mohan Rico MD [address] [facility] [address] [place] [address] [place] [address] Consulting Physician Pulmonary Disease 09/17/24 Betty Calvin PA [address] [facility] [address] [place] [address] [place] [address] Physician Silk Screen Processor Orthopedic Surgery 10/08/24 Sybil Alex, [facility] Pharmacist Pharmacy 10/29/24 documented as of this encounter
--- OUTSIDE RECORDS SUMMARY | 2024-11-03 14:46 | XMS_ITS | Encounter Summary ---
Author Organization [facility] Facility Care Team Providers Care Link Wire Fabric Machine Operator Name Role Phone Harry Jorgensen MD Primary Care Provider + Taqueria Sullivan MD Primary Care Provider [phone] Harry Jorgensen MD Primary Care Provider + Truman Moody MD Unavailable [phone] Michael Quiros MD Unavailable [phone] Mohan Rico MD Unavailable [phone] Betty Calvin Unavailable [phone] Sybil Alex 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 us Historical Provider Final Res ult documented in this encounter Visit Diagnoses Not on filedocumented in this encounter Additional Health Concerns Infection Onset Date Last Indicated Resolved Time COVID19 10/21/2024 10/21/2024 documented as of this encounter Care Teams Link Wire Fabric Machine Operator Relationship Specialty Start Date End Date Harry Jorgensen MD PCP - General 09/06/16 Taqueria Sullivan MD [address] [address] PCP - General 08/27/16 09/05/16 Harry Jorgensen MD PCP - General 04/21/14 08/26/16 Truman Moody MD [address] [address] Sedimentationist Cardiology 02/01/19 09/16/24 Michael Quiros MD [address] [place] [address] 3 [place] [address] Referring Physician Interventional Cardiology 09/17/24 Mohan Rico MD [address] [facility] [address] [address] Consulting Physician Pulmonary Disease 09/17/24 Betty Calvin PA [address] [facility] [address] [place] [address] [place] [address] Physician Functional Support Analyst Orthopedic Surgery 10/08/24 Sybil Alex, [facility] Pharmacist Pharmacy 10/29/24 documented as of this encounter
--- OUTSIDE RECORDS SUMMARY | 2024-11-03 14:46 | XMS_ITS | Encounter Summary ---
Author Organization [facility] Facility Care Team Providers Care Machine Fitter Name Role Phone Harry Jorgensen MD Primary Care Provider + Truman Moody MD Unavailable [phone] Michael Quiros MD Unavailable [phone] Mohan Rico MD Unavailable [phone] Betty Calvin Unavailable [phone] Sybil Alex [facility] Unavailable Unavailable Encounter Details Date Type Department Care Team (Latest Contact Info) Description 03/17/2017 Orders Only MMG CLINCONV ProviderKrzysztof MD [address] [place] [address] Social History Tobacco Use Types Packs/Day Years Used Date Smoking Tobacco: Never Alcohol Use Standard Drinks/Week Comments No 0 (1 standard drink = 0.6 oz pur e alcohol) Comments Unknown Sex and Gender Information Value Date Recorded Sex Assigned at Not on file Legal Sex Female 10:24 AM MARKET DEVELOPER Gender Identity Female 01/15/2021 9:27 PM CDT Sexual Orientation Straight 01/15/2021 9: 27 PM CDT documented as of this encounter Plan of Treatment Not on file documented as of this encounter Procedures Procedure Name Priority Date/Time Associated Diagnosis Comments SCAN - LABS 03/18/2017 12:00 AM CDT documented in this encounter Results * SCAN - LABS (03/18/2017 12:00 AM CDT) Narrative 03/18/2017 12:00 AM CDT Ordered by an unspecified provider. us Historical Provider Final Res ult documented in this encounter Visit Diagnoses Not on filedocumented in this encounter Additional Health Concerns Infection Onset Date Last Indicated Resolved Time COVID19 10/21/2024 10/21/2024 documented as of this encounter Care Teams Machine Fitter Relationship Specialty Start Date End Date Harry Jorgensen MD PCP - General 09/06/16 Truman Moody MD Chin Strap Cutter Cardiology 02/01/19 09/16/24 Michael Quiros MD [address] [address] Referring Physician Interventional Cardiology 09/17/24 Mohan Rico MD [address] [facility] [address] [place] [address] [place] [address] Consulting Physician Pulmonary Disease 09/17/24 Betty Calvin PA [address] [facility] [address] [place] [address] Physician Rotary Dump Operator Orthopedic Surgery 10/08/24 Sybil Alex, [facility] Pharmacist Pharmacy 10/29/24 documented as of this encounter
--- OUTSIDE RECORDS SUMMARY | 2024-11-03 14:46 | XMS_ITS | Encounter Summary ---
Author Organization [facility] Facility Care Team Providers Care Trust Operations Assistant Name Role Phone Harry Jorgesnen MD Primary Care Provider + Taqueria Sullivan MD Primary Care Provider Harry Jorgensen MD Primary Care Provider + Truman Moody MD Unavailable [phone] Michael Quiros MD Unavailable [phone] Mohan Rico MD Unavailable [phone] Betty Calvin Unavailable [phone] Sybil Alex [facility] Unavailable Unavailable Encounter Details Date Type Department Care Team (Latest Contact Info) Description 02/19/2016 Orders Only MMG CLINCONV ProviderKrzysztof MD [address] [place] [address] Social History Tobacco Use Types Packs/Day Years Used Date Smoking Tobacco: Never Alcohol Use Standard Drinks/Week Comments No 0 (1 standard drink = 0.6 oz pur e alcohol) Comments Unknown Sex and Gender Information Value Date Recorded Sex Assigned at Not on file Legal Sex Female 10:24 AM TILE GRINDER Gender Identity Female 01/15/2021 9:27 PM CDT Sexual Orientation Straight 01/15/2021 9: 27 PM CDT documented as of this encounter Plan of Treatment Not on file documented as of this encounter Procedures Procedure Name Priority Date/Time Associated Diagnosis Comments SCAN - LABS 02/19/2016 12:00 AM CDT documented in this encounter Results * SCAN - LABS (02/19/2016 12:00 AM CDT) Narrative 02/19/2016 12:00 AM CDT Ordered by an unspecified provider. us Historical Provider Final Res ult documented in this encounter Visit Diagnoses Not on filedocumented in this encounter Additional Health Concerns Infection Onset Date Last Indicated Resolved Time COVID19 10/21/2024 10/21/2024 documented as of this encounter Care Teams Trust Operations Assistant Relationship Specialty Start Date End Date Harry Jorgensen MD PCP - General 09/06/16 Taqueria Sullivan MD [address] [address] PCP - General 08/27/16 09/05/16 Harry Jorgensen MD PCP - General 04/21/14 08/26/16 Truman Moody MD [address] [address] Production Engine Repairer Cardiology 02/01/19 09/16/24 Michael Quiros MD [address] [place] [address] 3 [place] [address] Referring Physician Interventional Cardiology 09/17/24 Mohan Rico MD [address] [facility] [address] [address] Consulting Physician Pulmonary Disease 09/17/24 Betty Calvin PA [address] [facility] [address] [place] [address] [place] [address] Physician Car Barn Laborer Orthopedic Surgery 10/08/24 Sybil Alex, [facility] Pharmacist Pharmacy 10/29/24 documented as of this encounter
--- OUTSIDE RECORDS SUMMARY | 2024-11-03 14:46 | XMS_ITS | Encounter Summary ---
Author Organization [facility] Facility Care Team Providers Care Vice President Diversity Name Role Phone Harry Jorgensen MD Primary Care Provider + Taqueria Sullivan MD Primary Care Provider [phone] Harry Jorgensen MD Primary Care Provider + Truman Moody MD Unavailable [phone] Michael Quiros MD Unavailable [phone] Mohan Rico MD Unavailable [phone] Betty Calvin Unavailable [phone] Sybil Alex [facility] Unavailable Unavailable Encounter Details Date Type Department Care Team (Latest Contact Info) Description 04/10/2016 Orders Only MMG CLINCONV ProviderKrzysztof MD [address] [place] [address] Social History Tobacco Use Types Packs/Day Years Used Date Smoking Tobacco: Never Alcohol Use Standard Drinks/Week Comments No 0 (1 standard drink = 0.6 oz pur e alcohol) Comments Unknown Sex and Gender Information Value Date Recorded Sex Assigned at Not on file Legal Sex Female 10:24 AM RESTAURANT 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 Gender Identity Female 01/15/2021 9:27 PM CDT Sexual Orientation Straight 01/15/2021 9: 27 PM CDT documented as of this encounter Plan of Treatment Not on file documented as of this encounter Procedures Procedure Name Priority Date/Time Associated Diagnosis Comments CARDIOLOGY REPORT 04/10/2016 12: 00 AM CDT documented in this encounter Results * CARDIOLOGY REPORT (04/10/2016 12:00 AM CDT) Anatomical Region Laterality Modality Other Narrative 04/10/2016 12:00 AM CDT Ordered by an unspecified provider. us Historical Provider [facility] JACKI JOHNSON Final Result documented in this encounter Visit Diagnoses Not on filedocumented in this encounter Additional Health Concerns Infection Onset Date Last Indicated Resolved Time COVID19 10/21/2024 10/21/2024 documented as of this encounter Care Teams Vice President Diversity Relationship Specialty Start Date End Date Harry Jorgensen MD PCP - General 09/06/16 Taqueria Sullivan MD [address] [address] PCP - General 08/27/16 09/05/16 Harry Jorgensen MD PCP - General 04/21/14 08/26/16 Truman Moody MD [address] [address] Region Manager Cardiology 02/01/19 09/16/24 Michael Quiros MD [address] [place] [address] 3 [place] [address] Referring Physician Interventional Cardiology 09/17/24 Mohan Rico MD [address] [address] Consulting Physician Pulmonary Disease 09/17/24 eBtty Calvin PA [address] [facility] [address] [place] [address] Physician Cake Froster Orthopedic Surgery 10/08/24 Sybil Alex [facility] Pharmacist Pharmacy 10/29/24 documented as of this encounter
--- OUTSIDE RECORDS SUMMARY | 2024-11-03 14:46 | XMS_ITS | Clinical Summary ---
Author Organization [facility] Address [address] [facility] [place] [address] Care Team Providers Care Trading Analyst Name Role Phone Harry Jorgensen MD Primary Care Provider [phone] Source Comments [facility],non-owned Affiliates and Associated Physician Practices is amultiple site organization consisting of ambulatory clinics and hospital sitesin [place] and [place]. This disclosure is being madepursuant to the Care Everywhere program and may not contain all information available regarding this patient. Last updated 18.[facility] Allergies Active Allergy Reactions Criticality Noted Date Comments Atorvastatin Other 09/27/2022 Joint pain Azithromycin Unknown 05/02/2022 Causes a-fib Morphine Unknown 05/02/2022 Hallucinations Prednisone Swelling 05/02/2022 Silver Other,Rash High 01/04/2020 Other reaction(s): Blisters, Contact Dermatitis Vancomycin Skin Reactions 05/02/2022 Medications * Be aware that medications may not be up to date on this document. Alwaysverify current medications with the patient. 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 01/16/20 Active Biotin 1000 MCG once daily Act koby Cholecalciferol 50 MCG (2000 UT) Rx: Vitamin D-3 Active ubiquinine/vitam in-e (Coenzyme Q10) 200 MG capsule 200 mg once daily Ac tive magnesium oxide (Mag-Ox) 400 MG tablet 1 (one) tablet once daily Active Misc Natural Products (Osteo Bi-Flex Adv Triple St) TABS Take by mouth once daily Active nitroGLYCERIN (Nitrostat) 0.4 MG tablet Dissolve 1 (one) tablet under the tongue 01/17/20 21 Active rosuvastatin (Crestor) 5 MG tablet Take 1 (one) tablet by mouth once daily 11/08/19 22 Active saccharomyces (Florastor Extra Str) 250 MG capsule 1 (one) capsule once daily Active sotalol (Betapace) 160 MG tablet Take 1 (one) tablet by mouth 2 times daily 10/12/19 22 Active verapamil CR (Isoptin-SR) 240 MG tablet Take 1 (one) tablet by mouth once daily 10/12/19 22 Active zinc gluconate 50 MG tablet Active Ascorbic Acid 1000 MG Take 500 mg by mouth 2 times daily Activ e magnesium hydroxide (Milk Of Magnesia) 400 MG/5ML suspension Take 30 mL by mouth once daily as needed Active Multiple Vitamins-Mineral s (Thera-M) TABS Take 1 (one) tablet by mouth once daily Activ e potassium chloride ER (Klor-Con M) 20 MEQ tablet Take 1 (one) tablet by mouth once daily Activ e sucralfate (Carafate) 1 GM tablet Take 1 (one) tablet by mouth 3 times daily with meals Active Amino Acids-Protein Hydrolys (Pro-Stat AWC) LIQD Take 30 mL by mouth 2 times daily Active levothyroxine (Synthroid) 150 MCG tablet Take 1 (one) tablet by mouth daily before breakfast Active Active Problems Problem Noted Date Diagnosed Date Fall, initial encounter 05/03/2022 Closed fracture of left femu r, unspecified fracture morphology, unspecified portion of femur, initial encounter 05/03/2022 Body mass index (BMI) 50.0-59.9, adult 2 Dyslipidemia 01/28/2017 Overview (06/29/2022): improved with diet, had myalgias on atorvastatin 10 mgs daily, if needed consider low dose crestor but no stat for now Last Assessment & Plan: Patient currently on Crestor 5 mg daily. Encourage low-fat/carb diet Cerebrovascular accident (CVA) 03/30/2013 Sick sinus syndrome 10/23/2010 Overview (06/29/2022): Description: Sick Sinus Syndrome Last Assessment & Plan: Rate response okay Essential hypertension 08/16/2008 Overview (06/29/2022): Last Assessment & Plan: Blood pressure controlled. Continue same meds Lasix 40 mg, sotalol 160 mg b.i.d., verapamil 240 mg. Monitor blood pressure, adjust meds according Paroxysmal atrial fibrillation 08/16/2008 Overview (06/29/2022): Last Assessment & Plan: Currently rate controlled. Continue home med sotalol 160 mg b.i.d., verapamil 240 mg daily, Eliquis 5 mg b.i.d.. Follow-up cardiology, Dr. Damico outpatient Family History Medical History Relation Name Comments CVA Father Cancer - Bladder Father Hypertension Father Atrial Fibrillation Mother CVA Mother Hypertension Mother Cancer - Breast Sister Relation Name Status Comments Brother Alive Father Mother Sister Alive Social History Tobacco Use Types Packs/Day Years Used Date Smoking Tobacco: Never Smokeless Tobacco: Never Tobacco Cessation:Counseling Given: Not Answered Alcohol Use Standard Drinks/Week Comments Never 0 (1 standard drink = 0.6 oz pur e alcohol) AUDIT-C Answer Date Recorded Q1: How often do you have a drink containing alc ohol? Never 05/02/2022 Average Number of Drinks Not on file 022 Frequency of Binge Drinking Not on file 04/10 Hunger Vital Sign Answer Date Recorded Within the past 12 months, y ou worried that your food would run out before you got the money to buy more. Never true 05/03/20 22 Within the past 12 months, t he food you bought just didn't last and you didn't have money to get more. Never true 05/03/2022 Comments Unknown Sex and Gender Information Value Date Recorded Sex Assigned at Not on file Legal Sex Female 6:34 PM SWABBER Gender Identity Not on file Sexual Orientation Not on file Last Filed Vital Signs Vital Sign Reading Time Taken Comments Blood Pressure 108/61 05/06/2022 12:23 PM SWABBER Pulse 74 05/06/2022 12:23 PM SWABBER Temperature 36.7 C (98.1 F) 05/06/2022 12:23 PM SWABBER Respiratory Rate 19 05/06/2022 12:23 PM SWABBER Oxygen Saturation 92% 05/06/2022 12:23 PM SWABBER Inhaled Oxygen Concentration - - Weight 142 kg (313 lb) 05/03/2022 3:00 AM SWABBER Height 165.1 cm (5' 5) 05/03/2022 3:00 AM SWABBER Body Mass Index 52.09 05/03/2022 3:00 AM SWABBER Plan of Treatment Health Maintenance Due Date Last Done Comments BONE DENSITY TESTING 1950 MEDICARE AW 12 MONTHS 1950 DTAP/TDAP/TD VACCINES (1 - Tdap) 02/28/1967 PNEUMOCOCCAL VACCINE 50+ (1 of 1 - PCV) 02/28/1998 ZOSTER VACCINE (1 of 2) 02/28/1998 Respiratory Syncytial Virus (RSV) Vaccine Pt: or over 60 yrs (1 - 1-dose 75+ series) 02/28/2023 COVID-19 VACCINE (2 - 2023-2 5 season) 2024 07/17/2020 DEPRESSION SCREENING 06/09/2024 INFLUENZA VACCINE (Season Ended) 2025 02/07/20 HEPATITIS C SCREENING Completed 07/18/2022 HEPATITIS B VACCINE Aged Out No longe r eligible based on patient's age to complete this topic HIB VACCINE Aged Out No longer eligi ble based on patient's age to complete this topic HPV VACCINE Aged Out No longer eligi ble based on patient's age to complete this topic MENINGOCOCCAL (Group B) VACC INE SHARED DECISION-MAKING Aged Out No longer eligibl e based on patient's age to complete this topic MENINGOCOCCAL GROUPS A/C/Y/W VACCINE Aged Out No longer eligible b ased on patient's age to complete this topic Medical Devices Implanted Type Area Community Coordinator For [employer] Device Identifier Shelf Expiration Date Model / Serial / Lot Nail Im 11mm 360mm T2 Sp Cndl Implanted:Qty: 1 on 05/03/2022 by Winston Mckinney, DO at [facility] Left: Femur [employer] 11/05/2026 1826-1136S / / [id number] Screw 5mm 90mm Ft Lck Ti Strl T2 Nail Implanted:Qty: 1 on 05/03/2022 by Winston Mckinney, DO at [facility] Left: Femur [employer] 11/06/2025 1896-5090S / / [id number] Screw 5mm 85mm Ft Lck Ti Strl T2 Im Nail Implanted:Qty: 1 on 05/03/2022 by Winston Mckinney, DO at [facility] Left: Femur [employer] 11/06/2026 1896-5085S / / [id number] Screw 5mm 75mm Ft Lck Ti Strl T2 Im Nail Implanted:Qty: 1 on 05/03/2022 by Winston Mckinney, DO at [facility] Left: Femur [employer] 11/06/2026 1896-5075S / / [id number] Cap End 4mm Ankl Ins Arthds Nail Strl T2 Implanted:Qty: 1 on 05/03/2022 by Winston Mckinney, DO at [facility] Left: Femur [employer] 01/06/2027 1826-0003S / / [id number] Screw 5mm 35mm Ft Lck Ti Strl T2 Im Nail Implanted:Qty: 1 on 05/03/2022 by Winston Mckinney, DO at [facility] Left: Femur [employer] 12/06/2025 1896-5035S / / [id number] Screw 5mm 37.5mm Ft Lck Ti Strl T2 Im Implanted:Qty: 1 on 05/03/2022 by Winston Mckinney DO at [facility] Left: Femur [employer] 03/08/2026 1896-5037S / / [id number] Explanted Type Area Community Coordinator For [employer] Device Identifier Shelf Expiration Date Model / Serial / Lot Locking Screw, Fully Threaded Explanted:Qty: 1 on 05/03/2022 at [facility] Left: Femur 12/06/20256-5095S / / [id number] Insurance MEDICARE [facility] [place] [address] MEDICARE [facility] [facility] Advance Directives * Full Code (Latest Code Status on File) Date Activated Date Inactivated Comments 05/06/2022 5:18 PM 05/24/2022 10:09 AM * Full Code Date Activated Date Inactivated Comments 05/03/2022 3:10 AM 05/06/2022 5:13 PM Care Teams Trading Analyst Relationship Specialty Start Date End Date Harry Jorgensen MD [address] [place] [id number] PCP - General Family Medicine 05/02/22
--- OUTSIDE RECORDS SUMMARY | 2024-11-03 14:46 | XMS_ITS | Encounter Summary ---
Author Organization [facility] Facility Care Team Providers Care Water Filterer Name Role Phone Harry Jorgensen MD Primary Care Provider + Taqueria Sullivan MD Primary Care Provider [phone] Harry Jorgensen MD Primary Care Provider + Truman Moody MD Unavailable [phone] Michael Quiros MD Unavailable [phone] Mohan Rico MD Unavailable [phone] Betty Calvin Unavailable [phone] Sybil Alex [facility] Unavailable Unavailable Encounter Details Date Type Department Care Team (Latest Contact Info) Description 05/20/2016 Orders Only [facility] CLINCONV ProviderKrzysztof MD [address] [place] [address] Social History Tobacco Use Types Packs/Day Years Used Date Smoking Tobacco: Never Alcohol Use Standard Drinks/Week Comments No 0 (1 standard drink = 0.6 oz pur e alcohol) Comments Unknown Sex and Gender Information Value Date Recorded Sex Assigned at Not on file Legal Sex Female 10:24 AM JEWELER APPRENTICE Gender Identity Female 01/15/2021 9:27 PM CDT Sexual Orientation Straight 01/15/2021 9: 27 PM CDT documented as of this encounter Plan of Treatment Not on file documented as of this encounter Procedures Procedure Name Priority Date/Time Associated Diagnosis Comments SCAN - LABS 05/20/2016 12:00 AM JEWELER APPRENTICE documented in this encounter Results * SCAN - LABS (05/20/2016 12:00 AM JEWELER APPRENTICE) Narrative 05/20/2016 12:00 AM JEWELER APPRENTICE Ordered by an unspecified provider. us Historical Provider Final Res ult documented in this encounter Visit Diagnoses Not on filedocumented in this encounter Additional Health Concerns Infection Onset Date Last Indicated Resolved Time COVID19 10/21/2024 10/21/2024 documented as of this encounter Care Teams Water Filterer Relationship Specialty Start Date End Date Harry Jorgensen MD PCP - General 09/06/16 Taqueria Sullivan MD [address] [facility] [address], [place] [address] PCP - General 08/27/16 09/05/16 Harry Jorgensen MD PCP - General 04/21/14 08/26/16 Truman Moody MD [address] [address] Color Receiver Cardiology 02/01/19 09/16/24 Michael Quiros MD [address] [place] [address] 3 [place] [address] Referring Physician Interventional Cardiology 09/17/24 Mohan Rico MD [address] [address] Consulting Physician Pulmonary Disease 09/17/24 Betty Calvin PA [address] [facility] [address] [place] [address] [place] [address] Physician Job Compositor Orthopedic Surgery 10/08/24 Sybil Alex [facility] Pharmacist Pharmacy 10/29/24 documented as of this encounter
--- OUTSIDE RECORDS SUMMARY | 2024-11-03 14:46 | XMS_ITS | Encounter Summary ---
Author Organization [facility] Facility Care Team Providers Care Circulating Process Inspector Name Role Phone Harry Jorgensen MD Primary Care Provider + Taqueria Sullivan MD Primary Care Provider [phone] Harry Jorgensen MD Primary Care Provider + Truman Moody MD Unavailable [phone] Michael Quiros MD Unavailable [phone] Mohan Rico MD Unavailable [phone] Betty Calvin Unavailable [phone] Sybil Alex [facility] Unavailable Unavailable Encounter Details Date Type Department Care Team (Latest Contact Info) Description 07/17/2016 Orders Only [facility] CLINCONV ProviderKrzysztof MD [address] [place] [address] Social History Tobacco Use Types Packs/Day Years Used Date Smoking Tobacco: Never Alcohol Use Standard Drinks/Week Comments No 0 (1 standard drink = 0.6 oz pur e alcohol) Comments Unknown Sex and Gender Information Value Date Recorded Sex Assigned at Not on file Legal Sex Female 10:24 AM TECHNICAL ASSISTANT Gender Identity Female 01/15/2021 9:27 PM CDT Sexual Orientation Straight 01/15/2021 9: 27 PM CDT documented as of this encounter Plan of Treatment Not on file documented as of this encounter Procedures Procedure Name Priority Date/Time Associated Diagnosis Comments CARDIOLOGY REPORT 07/18/2016 12: 00 AM TECHNICAL ASSISTANT documented in this encounter Results * CARDIOLOGY REPORT (07/18/2016 12:00 AM TECHNICAL ASSISTANT) Anatomical Region Laterality Modality Other Narrative 07/18/2016 12:00 AM TECHNICAL ASSISTANT Ordered by an unspecified provider. us Historical Provider [facility] JACKI JOHNSON Final Result documented in this encounter Visit Diagnoses Not on filedocumented in this encounter Additional Health Concerns Infection Onset Date Last Indicated Resolved Time COVID19 10/21/2024 10/21/2024 documented as of this encounter Care Teams Circulating Process Inspector Relationship Specialty Start Date End Date Harry Jorgensen MD PCP - General 09/06/16 Taqueria Sullivan MD [address] [address] PCP - General 08/27/16 09/05/16 Harry Jorgensen MD PCP - General 04/21/14 08/26/16 Truman Moody MD [address] [address] Mis Specialist Cardiology 02/01/19 09/16/24 Michael Quiros MD [address] [place] [address] 3 [place] [address] Referring Physician Interventional Cardiology 09/17/24 Mohan Rico MD [address] [address] Consulting Physician Pulmonary Disease 09/17/24 Betty Calvin PA [address] [facility] [address] [place] [address] Physician Kitchen Mechanic Orthopedic Surgery 10/08/24 Sybil Alex [facility] Pharmacist Pharmacy 10/29/24 documented as of this encounter
--- OUTSIDE RECORDS SUMMARY | 2024-11-03 14:46 | XMS_ITS | Encounter Summary ---
Author Organization [facility] Facility Care Team Providers Care Administrative Asst Name Role Phone Harry Jorgensen MD Primary Care Provider + Taqueria Sullivan MD Primary Care Provider [phone] Harry Jorgensen MD Primary Care Provider + Truman Moody MD Unavailable [phone] Michael Quiros MD Unavailable [phone] Mohan Rico MD Unavailable [phone] Betty Calvin Unavailable [phone] Sybil Alex [facility] Unavailable Unavailable Encounter Details Date Type Department Care Team (Latest Contact Info) Description 12/06/2015 Orders Only [facility] CLINCONV ProviderKrzysztof MD [address] [place] [address] Social History Tobacco Use Types Packs/Day Years Used Date Smoking Tobacco: Never Alcohol Use Standard Drinks/Week Comments No 0 (1 standard drink = 0.6 oz pur e alcohol) Comments Unknown Sex and Gender Information Value Date Recorded Sex Assigned at Not on file Legal Sex Female 10:24 AM LUBE MAN Gender Identity Female 01/15/2021 9:27 PM CDT Sexual Orientation Straight 01/15/2021 9: 27 PM CDT documented as of this encounter Plan of Treatment Not on file documented as of this encounter Procedures Procedure Name Priority Date/Time Associated Diagnosis Comments CARDIOLOGY REPORT 12/06/2015 12: 00 AM CDT CARDIOLOGY REPORT 12/06/2015 12: 00 AM CDT documented in this encounter Results * CARDIOLOGY REPORT (12/06/2015 12:00 AM CDT) Anatomical Region Laterality Modality Other Narrative 12/06/2015 12:00 AM CDT Ordered by an unspecified provider. us Historical Provider [facility] PROCE DURES Final Result * CARDIOLOGY REPORT (12/06/2015 12:00 AM CDT) Anatomical Region Laterality Modality Other Narrative 12/06/2015 12:00 AM CDT Ordered by an unspecified provider. Historical Provider [facility] PROCE DURES Final Result documented in this encounter Visit Diagnoses Not on filedocumented in this encounter Additional Health Concerns Infection Onset Date Last Indicated Resolved Time COVID19 10/21/2024 10/21/2024 documented as of this encounter Care Teams Administrative Asst Relationship Specialty Start Date End Date Harry Jorgensen MD PCP - General 09/06/16 Taqueria Sullivan MD [address] [address] PCP - General 08/27/16 09/05/16 Harry Jorgensen MD PCP - General 04/21/14 08/26/16 Truman Moody MD [address] [address] Recreation Coordinator Cardiology 02/01/19 09/16/24 Michael Quiros MD [address] [place] [address] 3 [place] [address] Referring Physician Interventional Cardiology 09/17/24 Mohan Rico MD [address] [facility] [address] [place] [place] [address] Consulting Physician Pulmonary Disease 09/17/24 Betty Calvin PA [address] [facility] [address] [place] [address] [place] [address] Physician Tank Builder Supervisor Orthopedic Surgery 10/08/24 Sybil Alex, [facility] Pharmacist Pharmacy 10/29/24 documented as of this encounter
--- OUTSIDE RECORDS SUMMARY | 2024-11-03 14:46 | XMS_ITS | Encounter Summary ---
Author Organization [facility] Facility Care Team Providers Care Treasury Consultant Name Role Phone Harry Jorgensen MD Primary Care Provider + Taqueria Sullivan MD Primary Care Provider [phone] Harry Jorgensen MD Primary Care Provider + Truman Moody MD Unavailable [phone] Michael Quiros MD Unavailable [phone] Mohan Rico MD Unavailable [phone] Betty Calvin Unavailable [phone] Sybil Alex [facility] Unavailable Unavailable Encounter Details Date Type Department Care Team (Latest Contact Info) Description 05/30/2016 Orders Only [facility] CLINCONV ProviderKrzysztof MD [address] [place] [address] Social History Tobacco Use Types Packs/Day Years Used Date Smoking Tobacco: Never Alcohol Use Standard Drinks/Week Comments No 0 (1 standard drink = 0.6 oz pur e alcohol) Comments Unknown Sex and Gender Information Value Date Recorded Sex Assigned at Not on file Legal Sex Female 10:24 AM WARP PREPARER Gender Identity Female 01/15/2021 9:27 PM CDT Sexual Orientation Straight 01/15/2021 9: 27 PM CDT documented as of this encounter Plan of Treatment Not on file documented as of this encounter Procedures Procedure Name Priority Date/Time Associated Diagnosis Comments SCAN - LABS 05/30/2016 12:00 AM WARP PREPARER documented in this encounter Results * SCAN - LABS (05/30/2016 12:00 AM WARP PREPARER) Narrative 05/30/2016 12:00 AM WARP PREPARER Ordered by an unspecified provider. us Historical Provider Final Res ult documented in this encounter Visit Diagnoses Not on filedocumented in this encounter Additional Health Concerns Infection Onset Date Last Indicated Resolved Time COVID19 10/21/2024 10/21/2024 documented as of this encounter Care Teams Treasury Consultant Relationship Specialty Start Date End Date Harry Jorgensen MD PCP - General 09/06/16 Taqueria Sullivan MD [address] [facility] [address] [address] PCP - General 08/27/16 09/05/16 Harry Jorgensen MD PCP - General 04/21/14 08/26/16 Truman Moody MD [address] [address] Lens Assistant Cardiology 02/01/19 09/16/24 Michael Quiros MD [address] [place] [address] 3 [place] [address] Referring Physician Interventional Cardiology 09/17/24 Mohan Rico MD [address] [address] Consulting Physician Pulmonary Disease 09/17/24 Betty Calvin PA [address] [facility] [address] [place] [address] Physician Recreation Attendant Orthopedic Surgery 10/08/24 Sybil Alex [facility] Pharmacist Pharmacy 10/29/24 documented as of this encounter
--- OUTSIDE RECORDS SUMMARY | 2024-11-03 14:46 | XMS_ITS | Encounter Summary ---
Author Organization [facility] Facility Care Team Providers Care Uppers Edge Burnisher Name Role Phone Harry Jorgensen MD Primary Care Provider + Taqueria Sullivan MD Primary Care Provider [phone] Harry Jorgensen MD Primary Care Provider + Truman Moody MD Unavailable [phone] Michael Quiros MD Unavailable [phone] Mohan Rico MD Unavailable [phone] Betty Calvin Unavailable [phone] Sybil Alex [facility] Unavailable Unavailable Encounter Details Date Type Department Care Team (Latest Contact Info) Description 06/13/2016 Orders Only [facility] CLINCONV ProviderKrzysztof MD [address] [place] [address] Social History Tobacco Use Types Packs/Day Years Used Date Smoking Tobacco: Never Alcohol Use Standard Drinks/Week Comments No 0 (1 standard drink = 0.6 oz pur e alcohol) Comments Unknown Sex and Gender Information Value Date Recorded Sex Assigned at Not on file Legal Sex Female 10:24 AM MAINFRAME SYSTEMS ENGINEER Gender Identity Female 01/15/2021 9:27 PM CDT Sexual Orientation Straight 01/15/2021 9: 27 PM CDT documented as of this encounter Plan of Treatment Not on file documented as of this encounter Procedures Procedure Name Priority Date/Time Associated Diagnosis Comments SCAN - LABS 06/18/2016 12:00 AM MAINFRAME SYSTEMS ENGINEER documented in this encounter Results * SCAN - LABS (06/18/2016 12:00 AM MAINFRAME SYSTEMS ENGINEER) Narrative 06/18/2016 12:00 AM MAINFRAME SYSTEMS ENGINEER Ordered by an unspecified provider. us Historical Provider Final Res ult documented in this encounter Visit Diagnoses Not on filedocumented in this encounter Additional Health Concerns Infection Onset Date Last Indicated Resolved Time COVID19 10/21/2024 10/21/2024 documented as of this encounter Care Teams Uppers Edge Burnisher Relationship Specialty Start Date End Date Harry Jorgensen MD PCP - General 09/06/16 Taqueria [place] MD [address] [facility] [address] [address] PCP - General 08/27/16 09/05/16 Harry Jorgensen MD PCP - General 04/21/14 08/26/16 Truman Moody MD [address] [address] Four H Agent Cardiology 02/01/19 09/16/24 Michael Quiros MD [address] [place] [address] [address] [place] [address] Referring Physician Interventional Cardiology 09/17/24 Mohan Rico MD [address] [address] Consulting Physician Pulmonary Disease 09/17/24 Betty Calvin PA [address] [facility] [address] [place] [address] [place] [address] Physician Agriscience Technology Instructor Orthopedic Surgery 10/08/24 Sybil Alex [facility] Pharmacist Pharmacy 10/29/24 documented as of this encounter
--- OUTSIDE RECORDS SUMMARY | 2024-11-03 14:46 | XMS_ITS | Patient Health Record ---
Author Organization [facility] Address [address] [place], [place] [id number] Care Team Providers Care Drawing Hand Name Role Phone ELLY Arambula Unavailable [phone] Harry Jorgensen Unavailable Unavailable SHAYNE BAILEY Unavailable [phone] EUSEBIA TAVAREZ Unavailable [phone] Allergies Allergen (clinical drug ingredient) Drug/Non Drug Allergy documented on EMR Reaction Allergy Type Onset Date Status Azithromycin Unknown Drug Allergy 02/05/2017 act koby predniSONE Unknown Drug Allergy 02/05/2017 activ e montelukast Singulair Unknown Drug Allergy 02/05/2017 acti ve Silver Unknown Drug Allergy 02/05/2017 active vancomycin Vancomycin Unknown Drug Allergy 05/06/2012 acti ve Reason For Referral No Information Medications Medication SIG (Take, Route, Frequency, Duration) Notes Start Date End Date Status Nabumetone 500 MG Oral Tablet ORAL nabumetone 500 MG Oral TabletOriginal Medicationnabumetone 500 MG Oral Tablet *Reorder from [employer] for eRx and Interaction Alerts* 05/27/2012 Active Vital Signs Height-cm 165.10 cm 07/06/2024 Weight-kg 124.74 kg 07/06/2024 Height 65.00 in 07/06/2024 Weight 275 lbs 07/06/2024 BMI 45.76 kg/m2 07/06/2024 Encounters Encounter Location Date Provider Diagnosis [facility] [address] [place], [place] [id number] 09/20/2024 SHAYNE BAILEY Onychomycosis B35.1 ; Pain in right toe(s) M79.674 ; Pain in left toe(s) M79.675 ; Atherosclerosis of chickahominy indians-eastern division arteries of extremities with intermittent claudication, bilateral legs I70.213 and Acquired keratoderma L85.1 [facility] [address] [place], [place] [id number] 11/24/2023 EUSEBIA TAVAREZ Other hammer toe(s) (acquired), right foot M20.41 ; Tinea unguium B35.1 ; Other hammer toe(s) (acquired), left foot M20.42 ; Pain in right toe(s) M79.674 ; Pain in left toe(s) M79.675 ; Pain in right foot M79.671 ; Pain in left foot M79.672 ; Unspecified atherosclerosis of chickahominy indians-eastern division arteries of extremities, bilateral legs I70.203 and Acquired keratosis [keratoderma] palmaris et plantaris L85.1 [facility] [address] [place], [place] [id number] 02/02/2024 EUSEBIA TAVAREZ Other hammer toe(s) (acquired), right foot M20.41 ; Tinea unguium B35.1 ; Other hammer toe(s) (acquired), left foot M20.42 ; Pain in right toe(s) M79.674 ; Pain in left toe(s) M79.675 ; Unspecified atherosclerosis of chickahominy indians-eastern division arteries of extremities, bilateral legs I70.203 and Acquired keratosis [keratoderma] palmaris et plantaris L85.1 [facility] [address] [place], [place] [id number] 04/05/2024 EUSEBIA TAVAREZ Other hammer toe(s) (acquired), right foot M20.41 ; Tinea unguium B35.1 ; Other hammer toe(s) (acquired), left foot M20.42 ; Pain in right toe(s) M79.674 ; Pain in left toe(s) M79.675 ; Unspecified atherosclerosis of chickahominy indians-eastern division arteries of extremities, bilateral legs I70.203 and Acquired keratosis [keratoderma] palmaris et plantaris L85.1 [facility] [address] [place], [place] [id number] 07/06/2024 SHAYNE BAILEY Onychomycosis B35.1 ; Pain in right toe(s) M79.674 ; Pain in left toe(s) M79.675 ; Atherosclerosis of chickahominy indians-eastern division arteries of extremities with intermittent claudication, bilateral legs I70.213 and Acquired keratoderma L85.1 Assessments Encounter Date Diagnosis (ICD Code) Assessment Notes Treatment Notes Treatment Clinical Notes Section Notes 11/24/2023 Other hammer toe(s) (acquired), right foot (ICD-10 - M20.41) The patient was educated regarding how to mechanically stabilize their deformity. The patient was given education about shoe recommendations specific for the condition. The patient was educated about custom orthotics and how appropriate shoes and orthotics can prevent further worsening of the deformity. The patient was educated about how bad shoe habits can worsen the condition. NSAIDS, P.T., injections and other conservative treatments were discussed. Both surgical and non surgical treatments were discussed, but conservative options were emphasized. 11/24/2023 Tinea unguium (ICD-10 - B35.1) Aseptic debridement of elongated thickened nails x 10 using sterile nippers, nails were debrided in length and thickness by 30% utilizing a nail nipper without incident. The patient was educated regarding all treatment options that include topical and oral antifungal treatments. I discussed the options of taking a sample of the nail to confirm diagnosis. Nail clippings were not sent for pathology analysis. The patient was educated why and how the fungal infection evolved in their feet and the patient was given information regarding how to prevent further infection. The patient was told to keep feet dry and change socks. The patient was told to be careful with old shoes and excessive sweating. The patient was educated regarding both OTC and prescription treatments. 02/02/2024 Other hammer toe(s) (acquired), right foot (ICD-10 - M20.41) The patient was educated regarding how to mechanically stabilize their deformity. The patient was given education about shoe recommendations specific for the condition. The patient was educated about custom orthotics and how appropriate shoes and orthotics can prevent further worsening of the deformity. The patient was educated about how bad shoe habits can worsen the condition. NSAIDS, P.T., injections and other conservative treatments were discussed. Both surgical and non surgical treatments were discussed, but conservative options were emphasized. 02/02/2024 Tinea unguium (ICD-10 - B35.1) Aseptic debridement of elongated thickened nails x 10 using sterile nippers, nails were debrided in length and thickness by 30% utilizing a nail nipper without incident. The patient was educated regarding all treatment options that include topical and oral antifungal treatments. I discussed the options of taking a sample of the nail to confirm diagnosis. Nail clippings were not sent for pathology analysis. The patient was educated why and how the fungal infection evolved in their feet and the patient was given information regarding how to prevent further infection. The patient was told to keep feet dry and change socks. The patient was told to be careful with old shoes and excessive sweating. The patient was educated regarding both OTC and prescription treatments. 04/05/2024 Tinea unguium (ICD-10 - B35.1) Aseptic debridement of elongated thickened nails x 10 using sterile nippers, nails were debrided in length and thickness by 30% utilizing a nail nipper without incident. The patient was educated regarding all treatment options that include topical and oral antifungal treatments. I discussed the options of taking a sample of the nail to confirm diagnosis. Nail clippings were not sent for pathology analysis. The patient was educated why and how the fungal infection evolved in their feet and the patient was given information regarding how to prevent further infection. The patient was told to keep feet dry and change socks. The patient was told to be careful with old shoes and excessive sweating. The patient was educated regarding both OTC and prescription treatments. 04/05/2024 Other hammer toe(s) (acquired), right foot (ICD-10 - M20.41) The patient was educated regarding how to mechanically stabilize their deformity. The patient was given education about shoe recommendations specific for the condition. The patient was educated about custom orthotics and how appropriate shoes and orthotics can prevent further worsening of the deformity. The patient was educated about how bad shoe habits can worsen the condition. NSAIDS, P.T., injections and other conservative treatments were discussed. Both surgical and non surgical treatments were discussed, but conservative options were emphasized. 07/06/2024 Pain in right toe(s) (ICD-10 - M79.674) 07/06/2024 Onychomycosis (ICD-10 - B35.1) Nails 1-5 Bilateral were debrided extensively with nail nippers and emery board, reducing length and girth to pink healthy tissue with any subungual debris and necrotic tissue removed 09/20/2024 Onychomycosis (ICD-10 - B35.1) Nails 1-5 Bilateral were debrided extensively with nail nippers and emery board, reducing length and girth to pink healthy tissue with any subungual debris and necrotic tissue removed 09/20/2024 Pain in right toe(s) (ICD-10 - M79.674) 07/06/2024 Pain in left toe(s) (ICD-10 - M79.675) 04/05/2024 Other hammer toe(s) (acquired), left foot (ICD-10 - M20.42) 02/02/2024 Other hammer toe(s) (acquired), left foot (ICD-10 - M20.42) 11/24/2023 Other hammer toe(s) (acquired), left foot (ICD-10 - M20.42) 11/24/2023 Pain in right toe(s) (ICD-10 - M79.674) 02/02/2024 Pain in right toe(s) (ICD-10 - M79.674) 04/05/2024 Pain in right toe(s) (ICD-10 - M79.674) 09/20/2024 Pain in left toe(s) (ICD-10 - M79.675) 07/06/2024 Atherosclerosis of chickahominy indians-eastern division arteries of extremities with intermittent claudication, bilateral legs (ICD-10 - I70.213) 04/05/2024 Pain in left toe(s) (ICD-10 - M79.675) 07/06/2024 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) 09/20/2024 Atherosclerosis of chickahominy indians-eastern division arteries of extremities with intermittent claudication, bilateral legs (ICD-10 - I70.213) 02/02/2024 Pain in left toe(s) (ICD-10 - M79.675) 11/24/2023 Pain in left toe(s) (ICD-10 - M79.675) 11/24/2023 Pain in right foot (ICD-10 - M79.671) 04/05/2024 Unspecified atherosclerosis of chickahominy indians-eastern division arteries of extremities, bilateral legs (ICD-10 - I70.203) Patient educated on risks and aggravating factors of PVD, including conservative treatment options such as a diet and exercise regimen to aid in slowing progression of vascular disease 02/02/2024 Unspecified atherosclerosis of chickahominy indians-eastern division arteries of extremities, bilateral legs (ICD-10 - I70.203) Patient educated on risks and aggravating factors of PVD, including conservative treatment options such as a diet and exercise regimen to aid in slowing progression of vascular disease 09/20/2024 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 After removal of overlying extensive hyperkeratosis, healthy tissue was noted and care was taken to assure that no undermining or probing was present. It should be noted that no probing was noted and no infection or drainage was noted. 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 After removal of overlying extensive hyperkeratosis, healthy tissue was noted and care was taken to assure that no undermining or probing was present. It should be noted that no probing was noted and no infection or drainage was noted. 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 After removal of overlying extensive hyperkeratosis, healthy tissue was noted and care was taken to assure that no undermining or probing was present. It should be noted that no probing was noted and no infection or drainage was noted. Plan Of Treatment No Information Insurance Providers Payer Name Payer Address Payer Phone Subscriber Number Group Number Insured Name Patient Relationship to Insured Coverage Start Date Coverage End Date Medicare Part B [facility] [address] [place] [phone] [id number] ELLIS TOBAR Self - patient is the insured [employer] [address] [facility] [place] [place] [id number] ELLIS TOBAR Self - patient is the insured
--- OUTSIDE RECORDS SUMMARY | 2024-11-03 14:46 | XMS_ITS | Encounter Summary ---
Author Organization [facility] Facility Care Team Providers Care Leases And Land Supervisor Name Role Phone Harry Jorgensen MD Primary Care Provider + Taqueria Sullivan MD Primary Care Provider [phone] Harry Jorgensen MD Primary Care Provider + Truman Moody MD Unavailable [phone] Michael Quiros MD Unavailable [phone] Mohan Rico MD Unavailable [phone] Betty Calvin Unavailable [phone] Sybil Alex [facility] Unavailable Unavailable Encounter Details Date Type Department Care Team (Latest Contact Info) Description 01/25/2016 Orders Only [facility] CLINCONV ProviderKrzysztof MD [address] [place] [address] Social History Tobacco Use Types Packs/Day Years Used Date Smoking Tobacco: Never Alcohol Use Standard Drinks/Week Comments No 0 (1 standard drink = 0.6 oz pur e alcohol) Comments Unknown Sex and Gender Information Value Date Recorded Sex Assigned at Not on file Legal Sex Female 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 us Historical Provider Final Res ult documented in this encounter Visit Diagnoses Not on filedocumented in this encounter Additional Health Concerns Infection Onset Date Last Indicated Resolved Time COVID19 10/21/2024 10/21/2024 documented as of this encounter Care Teams Leases And Land Supervisor Relationship Specialty Start Date End Date Harry Jorgensen MD PCP - General 09/06/16 Taqueria Sullivan MD [address] [address] PCP - General 08/27/16 09/05/16 Harry Jorgensen MD PCP - General 04/21/14 08/26/16 Truman Moody MD [address] [address] Industry Consultant Cardiology 02/01/19 09/16/24 Michael Quiros MD [address] [place] [address] 3 [place] [address] Referring Physician Interventional Cardiology 09/17/24 Mohan Rico MD [address] [facility] [address] [address] Consulting Physician Pulmonary Disease 09/17/24 Betty Calvin PA [address] [facility] [address] [place] [address] Physician Rivet Tapping Machine Operator Orthopedic Surgery 10/08/24 Sybil Alex, [facility] Pharmacist Pharmacy 10/29/24 documented as of this encounter
--- OUTSIDE RECORDS SUMMARY | 2024-11-03 14:46 | XMS_ITS | Encounter Summary ---
Author Organization [facility] Facility Care Team Providers Care Machine Strap Buckler Name Role Phone Harry Jorgensen MD Primary Care Provider + Taqueria Sullivan MD Primary Care Provider [phone] Harry Jorgensen MD Primary Care Provider + Truman Moody MD Unavailable [phone] Michael Quiros MD Unavailable [phone] Mohan Rico MD Unavailable [phone] Betty Calvin Unavailable [phone] Sybil Alex [facility] Unavailable Unavailable Encounter Details Date Type Department Care Team (Latest Contact Info) Description 02/28/2016 Orders Only [facility] CLINCONV ProviderKrzysztof MD [address] [place] [address] Social History Tobacco Use Types Packs/Day Years Used Date Smoking Tobacco: Never Alcohol Use Standard Drinks/Week Comments No 0 (1 standard drink = 0.6 oz pur e alcohol) Comments Unknown Sex and Gender Information Value Date Recorded Sex Assigned at Not on file Legal Sex Female 10:24 AM WARP DRAWER Gender Identity Female 01/15/2021 9:27 PM CDT Sexual Orientation Straight 01/15/2021 9: 27 PM CDT documented as of this encounter Plan of Treatment Not on file documented as of this encounter Procedures Procedure Name Priority Date/Time Associated Diagnosis Comments SCAN - LABS 02/28/2016 12:00 AM CDT documented in this encounter Results * SCAN - LABS (02/28/2016 12:00 AM CDT) Narrative 02/28/2016 12:00 AM CDT Ordered by an unspecified provider. us Historical Provider Final Res ult documented in this encounter Visit Diagnoses Not on filedocumented in this encounter Additional Health Concerns Infection Onset Date Last Indicated Resolved Time COVID19 10/21/2024 10/21/2024 documented as of this encounter Care Teams Machine Strap Buckler Relationship Specialty Start Date End Date Harry Jorgensen MD PCP - General 09/06/16 Taqueria Sullivan MD [address] [address] PCP - General 08/27/16 09/05/16 Harry Jorgensen MD PCP - General 04/21/14 08/26/16 Truman Moody MD [address] [address] Area Director Cardiology 02/01/19 09/16/24 Michael Quiros MD [address] [place] [address] 3 [place] [address] Referring Physician Interventional Cardiology 09/17/24 Mohan Rico MD [address] [facility] [address] [address] Consulting Physician Pulmonary Disease 09/17/24 Betty Calvin PA [address] [facility] [address] [place] [address] Physician Lance Crewmember Orthopedic Surgery 10/08/24 Sybil Alex, [facility] Pharmacist Pharmacy 10/29/24 documented as of this encounter
--- OUTSIDE RECORDS SUMMARY | 2024-11-03 14:46 | XMS_ITS | Encounter Summary ---
Author Organization [facility] Facility Care Team Providers Care Psychiatric Assistant Name Role Phone Harry Jorgensen MD Primary Care Provider + Taqueria Sullivan MD Primary Care Provider [phone] Harry Jorgensen MD Primary Care Provider + Truman Moody MD Unavailable [phone] Michael Quiros MD Unavailable [phone] Mohan Rico MD Unavailable [phone] Betty Calvin Unavailable [phone] Sybil Alex [facility] Unavailable Unavailable Encounter Details Date Type Department Care Team (Latest Contact Info) Description 04/03/2016 Orders Only [facility] CLINCONV ProviderKrzysztof MD [address] [place] [address] Social History Tobacco Use Types Packs/Day Years Used Date Smoking Tobacco: Never Alcohol Use Standard Drinks/Week Comments No 0 (1 standard drink = 0.6 oz pur e alcohol) Comments Unknown Sex and Gender Information Value Date Recorded Sex Assigned at Not on file Legal Sex Female 10:24 AM JOURNAL CLERK Gender Identity Female 01/15/2021 9:27 PM CDT Sexual Orientation Straight 01/15/2021 9: 27 PM CDT documented as of this encounter Plan of Treatment Not on file documented as of this encounter Procedures Procedure Name Priority Date/Time Associated Diagnosis Comments SCAN - LABS 03/21/2016 12:00 AM CDT documented in this encounter Results * SCAN - LABS (03/21/2016 12:00 AM CDT) Narrative 03/21/2016 12:00 AM CDT Ordered by an unspecified provider. us Historical Provider Final Res ult documented in this encounter Visit Diagnoses Not on filedocumented in this encounter Additional Health Concerns Infection Onset Date Last Indicated Resolved Time COVID19 10/21/2024 10/21/2024 documented as of this encounter Care Teams Psychiatric Assistant Relationship Specialty Start Date End Date Harry Jorgensen MD PCP - General 09/06/16 Taqueria Sullivan MD [address] [address] PCP - General 08/27/16 09/05/16 Harry Jorgensen MD PCP - General 04/21/14 08/26/16 Truman Moody MD [address] [address] Fiction And Nonfiction Author Cardiology 02/01/19 09/16/24 Michael Quiros MD [address] [place] [address] 3 [place] [address] Referring Physician Interventional Cardiology 09/17/24 Mohan Rico MD [address] [facility] [address] [address] Consulting Physician Pulmonary Disease 09/17/24 Betty Clavin PA [address] [facility] [address] [place] [address] Physician Medical Affairs Leader Orthopedic Surgery 10/08/24 Sybil Alex, [facility] Pharmacist Pharmacy 10/29/24 documented as of this encounter
--- OUTSIDE RECORDS SUMMARY | 2024-11-03 14:46 | XMS_ITS | Encounter Summary ---
Author Organization [facility] Facility Care Team Providers Care Top Former Name Role Phone Harry Jorgensen MD Primary Care Provider + Taqueria Sullivan MD Primary Care Provider [phone] Harry Jorgensen MD Primary Care Provider + Truman Moody MD Unavailable [phone] Michael Quiros MD Unavailable [phone] Mohan Rico MD Unavailable [phone] Betty Calvin Unavailable [phone] Sybil Alex [facility] Unavailable Unavailable Encounter Details Date Type Department Care Team (Latest Contact Info) Description 04/25/2016 Orders Only [facility] CLINCONV ProviderKrzysztof MD [address] [place] [address] Social History Tobacco Use Types Packs/Day Years Used Date Smoking Tobacco: Never Alcohol Use Standard Drinks/Week Comments No 0 (1 standard drink = 0.6 oz pur e alcohol) Comments Unknown Sex and Gender Information Value Date Recorded Sex Assigned at Not on file Legal Sex Female 10:24 AM SALES REPRESENTATIVE BUSINESS COURSES Gender Identity Female 01/15/2021 9:27 PM CDT Sexual Orientation Straight 01/15/2021 9: 27 PM CDT documented as of this encounter Plan of Treatment Not on file documented as of this encounter Procedures Procedure Name Priority Date/Time Associated Diagnosis Comments SCAN - LABS 04/25/2016 12:00 AM SALES REPRESENTATIVE BUSINESS COURSES documented in this encounter Results * SCAN - LABS (04/25/2016 12:00 AM SALES REPRESENTATIVE BUSINESS COURSES) Narrative 04/25/2016 12:00 AM SALES REPRESENTATIVE BUSINESS COURSES Ordered by an unspecified provider. us Historical Provider Final Res ult documented in this encounter Visit Diagnoses Not on filedocumented in this encounter Additional Health Concerns Infection Onset Date Last Indicated Resolved Time COVID19 10/21/2024 10/21/2024 documented as of this encounter Care Teams Top Former Relationship Specialty Start Date End Date Harry Jorgensen MD PCP - General 09/06/16 Taqueria Sullivan MD [address] [facility] [address], [place] [address] PCP - General 08/27/16 09/05/16 Harry Jorgensen MD PCP - General 04/21/14 08/26/16 Truman Moody MD [address] [address] [employer] Cardiology 02/01/19 09/16/24 Michael Quiros MD [address] [place] [address] 3 [place] [address] Referring Physician Interventional Cardiology 09/17/24 Mohan Rico MD [address] [address] Consulting Physician Pulmonary Disease 09/17/24 Betty Calvin PA [address] [facility] [address] [place] [address] Physician Cytotechnologist/Histotechnologist Orthopedic Surgery 10/08/24 Sybil Alex [facility] Pharmacist Pharmacy 10/29/24 documented as of this encounter
--- OUTSIDE RECORDS SUMMARY | 2024-11-03 14:46 | XMS_ITS | Encounter Summary ---
Author Organization [facility] Facility Care Team Providers Care Rail Filler Name Role Phone Harry Jorgensen MD Primary Care Provider + Taqueria Sullivan MD Primary Care Provider [phone] Harry Jorgensen MD Primary Care Provider + Truman Moody MD Unavailable +[phone] Michael Quiros MD Unavailable [phone] Mohan Rico MD Unavailable [phone] Betty Calvin Unavailable [phone] Sybil Alex [facility] Unavailable Unavailable Encounter Details Date Type Department Care Team (Latest Contact Info) Description 02/12/2016 Orders Only [facility] CLINCONV ProviderKrzysztof MD [address] [place] [address] Social History Tobacco Use Types Packs/Day Years Used Date Smoking Tobacco: Never Alcohol Use Standard Drinks/Week Comments No 0 (1 standard drink = 0.6 oz pur e alcohol) Comments Unknown Sex and Gender Information Value Date Recorded Sex Assigned at Not on file Legal Sex Female 10:24 AM RISK PROFESSIONAL Gender Identity Female 01/15/2021 9:27 PM CDT Sexual Orientation Straight 01/15/2021 9: 27 PM CDT documented as of this encounter Plan of Treatment Not on file documented as of this encounter Procedures Procedure Name Priority Date/Time Associated Diagnosis Comments SCAN - LABS 02/13/2016 12:00 AM CDT documented in this encounter Results * SCAN - LABS (02/13/2016 12:00 AM CDT) Narrative 02/13/2016 12:00 AM CDT Ordered by an unspecified provider. us Historical Provider Final Res ult documented in this encounter Visit Diagnoses Not on filedocumented in this encounter Additional Health Concerns Infection Onset Date Last Indicated Resolved Time COVID19 10/21/2024 10/21/2024 documented as of this encounter Care Teams Rail Filler Relationship Specialty Start Date End Date Harry Jorgensen MD PCP - General 09/06/16 Taqueria Sullivan MD [address] [address] PCP - General 08/27/16 09/05/16 Harry Jorgensen MD PCP - General 04/21/14 08/26/16 Truman Moody MD [address] [address] Proposal Lead Writer Cardiology 02/01/19 09/16/24 Michael Quiros MD [address] [place] [address] 3 [place] [address] Referring Physician Interventional Cardiology 09/17/24 Mohan Rico MD [address] [facility] [address] [address] Consulting Physician Pulmonary Disease 09/17/24 Betty Calvin PA [address] [facility] [address] [place] [address] Physician Jewelry Manager Orthopedic Surgery 10/08/24 Sybil Alex, [facility] Pharmacist Pharmacy 10/29/24 documented as of this encounter
--- OUTSIDE RECORDS SUMMARY | 2024-11-03 14:46 | XMS_ITS | Encounter Summary ---
Author Organization [facility] Facility Care Team Providers Care Cost Accounting Manager Name Role Phone Harry Jorgensen MD Primary Care Provider + Taqueria Sullivan MD Primary Care Provider [phone] Harry Jorgensen MD Primary Care Provider + Truman Moody MD Unavailable [phone] Michael Quiros MD Unavailable [phone] Mohan Rico MD Unavailable [phone] Betty Calvin Unavailable [phone] [facility] Unavailable Unavailable Encounter Details Date Type Department Care Team (Latest Contact Info) Description 12/14/2015 Orders Only [facility]G CLINCONV ProviderKrzysztof MD [address] [place] [address] Social History Tobacco Use Types Packs/Day Years Used Date Smoking Tobacco: Never Alcohol Use Standard Drinks/Week Comments No 0 (1 standard drink = 0.6 oz pur e alcohol) Comments Unknown Sex and Gender Information Value Date Recorded Sex Assigned at Not on file Legal Sex Female 10:24 AM WINE FERMENTER Gender Identity Female 01/15/2021 9:27 PM CDT Sexual Orientation Straight 01/15/2021 9: 27 PM CDT documented as of this encounter Plan of Treatment Not on file documented as of this encounter Procedures Procedure Name Priority Date/Time Associated Diagnosis Comments SCAN - LABS 12/14/2015 12:00 AM CDT documented in this encounter Results * SCAN - LABS (12/14/2015 12:00 AM CDT) Narrative 12/14/2015 12:00 AM CDT Ordered by an unspecified provider. us Historical Provider Final Res ult documented in this encounter Visit Diagnoses Not on filedocumented in this encounter Additional Health Concerns Infection Onset Date Last Indicated Resolved Time COVID19 10/21/2024 10/21/2024 documented as of this encounter Care Teams Cost Accounting Manager Relationship Specialty Start Date End Date Harry Jorgensen MD PCP - General 09/06/16 Taqueria Sullivan MD [address] [address] PCP - General 08/27/16 09/05/16 Harry Jorgensen MD PCP - General 04/21/14 08/26/16 Truman Moody MD [address] [address] Environmental Services Coordinator Cardiology 02/01/19 09/16/24 Michael Quiros MD [address] [place] [address] 3 [place] [address] Referring Physician Interventional Cardiology 09/17/24 Mohan Rico MD [address] [facility] [address] [address] Consulting Physician Pulmonary Disease 09/17/24 Betty Calvin PA [address] [facility] [address] [place] [address] Physician Political Reporter Orthopedic Surgery 10/08/24 Sybil Alex, [facility] Pharmacist Pharmacy 10/29/24 documented as of this encounter
--- OUTSIDE RECORDS SUMMARY | 2024-11-03 14:46 | XMS_ITS | Encounter Summary ---
Author Organization [facility] Facility Care Team Providers Care Special Education Inclusion Teacher Name Role Phone Harry Jorgensen MD Primary Care Provider + Truman Moody MD Unavailable [phone] Michael Quiros MD Unavailable [phone] Mohan Rico MD Unavailable [phone] Betty Calvin Unavailable [phone] Sybil Alex [facility] Unavailable Unavailable Encounter Details Date Type Department Care Team (Latest Contact Info) Description 05/05/2017 Orders Only [facility]G CLINCONV ProviderKrzysztof MD [address] [place] [address] Social History Tobacco Use Types Packs/Day Years Used Date Smoking Tobacco: Never Alcohol Use Standard Drinks/Week Comments No 0 (1 standard drink = 0.6 oz pur e alcohol) Comments Unknown Sex and Gender Information Value Date Recorded Sex Assigned at Not on file Legal Sex Female 10:24 AM COMPUTER GRAPHICS ILLUSTRATOR Gender Identity Female 01/15/2021 9:27 PM CDT Sexual Orientation Straight 01/15/2021 9: 27 PM CDT documented as of this encounter Plan of Treatment Not on file documented as of this encounter Procedures Procedure Name Priority Date/Time Associated Diagnosis Comments SCAN - LABS 05/05/2017 12:00 AM COMPUTER GRAPHICS ILLUSTRATOR documented in this encounter Results * SCAN - LABS (05/05/2017 12:00 AM COMPUTER GRAPHICS ILLUSTRATOR) Narrative 05/05/2017 12:00 AM COMPUTER GRAPHICS ILLUSTRATOR Ordered by an unspecified provider. us Historical Provider Final Res ult documented in this encounter Visit Diagnoses Not on filedocumented in this encounter Additional Health Concerns Infection Onset Date Last Indicated Resolved Time COVID19 10/21/2024 10/21/2024 documented as of this encounter Care Teams Special Education Inclusion Teacher Relationship Specialty Start Date End Date Harry Jorgensen MD PCP - General 09/06/16 Truman Moody MD Stockroom Inventory Clerk Cardiology 02/01/19 09/16/24 Michael Quiros MD [address] [address] Referring Physician Interventional Cardiology 09/17/24 Mohan Rico MD [address] [facility] [address] [place] [address] [place] [address] Consulting Physician Pulmonary Disease 09/17/24 Betty Calvin PA [address] [facility] [address] [place] [place] [address] Physician Plant Maintenance Technician Orthopedic Surgery 10/08/24 Sybil Alex, [facility] Pharmacist Pharmacy 10/29/24 documented as of this encounter
--- OUTSIDE RECORDS SUMMARY | 2024-11-03 14:46 | XMS_ITS | Encounter Summary ---
Author Organization [facility] Facility Care Team Providers Care Machine Adjuster Leader Name Role Phone Harry Jorgensen MD Primary Care Provider + Taqueria Sullivan MD Primary Care Provider [phone] Harry Jorgensen MD Primary Care Provider + Truman Moody MD Unavailable [phone] Michael Quiros MD Unavailable [phone] Mohan Rico MD Unavailable [phone] Betty Calvin Unavailable [phone] Sybil Alex [facility] Unavailable Unavailable Encounter Details Date Type Department Care Team (Latest Contact Info) Description 05/31/2016 Orders Only [facility] CLINCONV ProviderKrzysztof MD [address] [place] [address] Social History Tobacco Use Types Packs/Day Years Used Date Smoking Tobacco: Never Alcohol Use Standard Drinks/Week Comments No 0 (1 standard drink = 0.6 oz pur e alcohol) Comments Unknown Sex and Gender Information Value Date Recorded Sex Assigned at Not on file Legal Sex Female 10:24 AM SHOCK ABSORPTION FLOOR LAYER Gender Identity Female 01/15/2021 9:27 PM CDT Sexual Orientation Straight 01/15/2021 9: 27 PM CDT documented as of this encounter Plan of Treatment Not on file documented as of this encounter Procedures Procedure Name Priority Date/Time Associated Diagnosis Comments CARDIOLOGY REPORT 05/31/2016 12: 00 AM SHOCK ABSORPTION FLOOR LAYER documented in this encounter Results * CARDIOLOGY REPORT (05/31/2016 12:00 AM SHOCK ABSORPTION FLOOR LAYER) Anatomical Region Laterality Modality Other Narrative 05/31/2016 12:00 AM SHOCK ABSORPTION FLOOR LAYER Ordered by an unspecified provider. us Historical Provider [facility] J[facility]I JOHNSON Final Result documented in this encounter Visit Diagnoses Not on filedocumented in this encounter Additional Health Concerns Infection Onset Date Last Indicated Resolved Time COVID19 10/21/2024 10/21/2024 documented as of this encounter Care Teams Machine Adjuster Leader Relationship Specialty Start Date End Date Harry Jorgensen MD PCP - General 09/06/16 Taqueria Sullivan MD [address] [address] PCP - General 08/27/16 09/05/16 Harry Jorgensen MD PCP - General 04/21/14 08/26/16 Truman Moody MD [address] [address] Sports Specialist Cardiology 02/01/19 09/16/24 Michale Quiros MD [address] [place] [address] 3 [place] [address] Referring Physician Interventional Cardiology 09/17/24 Mohan Rico MD [address] [address] Consulting Physician Pulmonary Disease 09/17/24 Betty Calvin PA [address] [facility] [address] [place] [address] Physician Hang Gliding Instructor Orthopedic Surgery 10/08/24 Sybil Alex [facility] Pharmacist Pharmacy 10/29/24 documented as of this encounter
--- OUTSIDE RECORDS SUMMARY | 2024-11-03 14:46 | XMS_ITS | Encounter Summary ---
Author Organization [facility] Facility Care Team Providers Care Neighborhood Service Center Director Name Role Phone Harry Jorgensen MD Primary Care Provider + Trumna Moody MD Unavailable [phone] Michael Quiros MD Unavailable [phone] Mohan Rico MD Unavailable [phone] Betty Calvin Unavailable [phone] Sybil Alex [facility] Unavailable Unavailable Encounter Details Date Type Department Care Team (Latest Contact Info) Description 02/20/2017 Orders Only [facility] CLINCONV ProviderKrzysztof MD [address] [place] [address] Social History Tobacco Use Types Packs/Day Years Used Date Smoking Tobacco: Never Alcohol Use Standard Drinks/Week Comments No 0 (1 standard drink = 0.6 oz pur e alcohol) Comments Unknown Sex and Gender Information Value Date Recorded Sex Assigned at Not on file Legal Sex Female 10:24 AM CONTAINER COORDINATOR Gender Identity Female 01/15/2021 9:27 PM CDT Sexual Orientation Straight 01/15/2021 9: 27 PM CDT documented as of this encounter Plan of Treatment Not on file documented as of this encounter Procedures Procedure Name Priority Date/Time Associated Diagnosis Comments SCAN - LABS 02/20/2017 12:00 AM CDT documented in this encounter Results * SCAN - LABS (02/20/2017 12:00 AM CDT) Narrative 02/20/2017 12:00 AM CDT Ordered by an unspecified provider. us Historical Provider Final Res ult documented in this encounter Visit Diagnoses Not on filedocumented in this encounter Additional Health Concerns Infection Onset Date Last Indicated Resolved Time COVID19 10/21/2024 10/21/2024 documented as of this encounter Care Teams Neighborhood Service Center Director Relationship Specialty Start Date End Date Harry Jorgensen MD PCP - General 09/06/16 Truman Moody MD Wrapper Selector Cardiology 02/01/19 09/16/24 Michael Quiros MD [address] [address] Referring Physician Interventional Cardiology 09/17/24 Mohan Rico MD [address] [facility] [address] [place] [address] [place] [address] Consulting Physician Pulmonary Disease 09/17/24 Betty Calvin PA [address] [facility] [address] [place] [address] Physician Byproducts Pump Operator Orthopedic Surgery 10/08/24 Sybil Alex, [facility] Pharmacist Pharmacy 10/29/24 documented as of this encounter
--- OUTSIDE RECORDS SUMMARY | 2024-11-03 14:46 | XMS_ITS | Encounter Summary ---
Author Organization [facility] Facility Care Team Providers Care Vp Of Technology Name Role Phone Harry Jorgensen MD Primary Care Provider + Taqueria Sullivan MD Primary Care Provider [phone] Harry Jorgensen MD Primary Care Provider + Truman Moody MD Unavailable [phone] iMchael Quiros MD Unavailable [phone] Mohan Rico MD Unavailable [phone] Betty Calvin Unavailable [phone] Sybil Alex formerly [facility] Unavailable Unavailable Encounter Details Date Type Department Care Team (Latest Contact Info) Description 05/04/2016 Orders Only [facility] CLINCONV ProviderKrzysztof MD [address] [place] [address] Social History Tobacco Use Types Packs/Day Years Used Date Smoking Tobacco: Never Alcohol Use Standard Drinks/Week Comments No 0 (1 standard drink = 0.6 oz pur e alcohol) Comments Unknown Sex and Gender Information Value Date Recorded Sex Assigned at Not on file Legal Sex Female 10:24 AM ORCHID GROWER Gender Identity Female 01/15/2021 9:27 PM CDT Sexual Orientation Straight 01/15/2021 9: 27 PM CDT documented as of this encounter Plan of Treatment Not on file documented as of this encounter Procedures Procedure Name Priority Date/Time Associated Diagnosis Comments CARDIOLOGY REPORT 05/04/2016 12: 00 AM ORCHID GROWER documented in this encounter Results * CARDIOLOGY REPORT (05/04/2016 12:00 AM ORCHID GROWER) Anatomical Region Laterality Modality Other Narrative 05/04/2016 12:00 AM ORCHID GROWER Ordered by an unspecified provider. us Historical Provider [facility] JACKI JOHNSON Final Result documented in this encounter Visit Diagnoses Not on filedocumented in this encounter Additional Health Concerns Infection Onset Date Last Indicated Resolved Time COVID19 10/21/2024 10/21/2024 documented as of this encounter Care Teams Vp Of Technology Relationship Specialty Start Date End Date Harry Jorgensen MD PCP - General 09/06/16 Taqueria Sullivan MD [address] [address] PCP - General 08/27/16 09/05/16 Harry Jorgensen MD PCP - General 04/21/14 08/26/16 Truman Moody MD [address] [address] Extrusion Former Cardiology 02/01/19 09/16/24 Michael Quiros MD [address] [place] [address] 3 [place] [address] Referring Physician Interventional Cardiology 09/17/24 Mohan Rico MD [address] [address] Consulting Physician Pulmonary Disease 09/17/24 Betty Calvin PA [address] [facility] [address] [place] [address] [place] [address] Physician Mathematical Scientist Orthopedic Surgery 10/08/24 Sybil Alex formerly [facility] Pharmacist Pharmacy 10/29/24 documented as of this encounter
--- OUTSIDE RECORDS SUMMARY | 2024-11-03 14:46 | XMS_ITS | Encounter Summary ---
Author Organization [facility] Facility Care Team Providers Care Spanish Tutor Name Role Phone Harry Jorgensen MD Primary Care Provider + Taqueria Sullivan MD Primary Care Provider [phone] Harry Jorgensen MD Primary Care Provider + Truman Moody MD Unavailable [phone] Michael Quiros MD Unavailable [phone] Mohan Rico MD Unavailable [phone] Betty Calvin Unavailable [phone] Sybil Alex [facility] Unavailable Unavailable Encounter Details Date Type Department Care Team (Latest Contact Info) Description 12/30/2015 Orders Only MMG CLINCONV ProviderKrzysztof MD [address] [place] [address] Social History Tobacco Use Types Packs/Day Years Used Date Smoking Tobacco: Never Alcohol Use Standard Drinks/Week Comments No 0 (1 standard drink = 0.6 oz pur e alcohol) Comments Unknown Sex and Gender Information Value Date Recorded Sex Assigned at Not on file Legal Sex Female 10:24 AM MANAGER SPANISH Gender Identity Female 01/15/2021 9:27 PM CDT Sexual Orientation Straight 01/15/2021 9: 27 PM CDT documented as of this encounter Plan of Treatment Not on file documented as of this encounter Procedures Procedure Name Priority Date/Time Associated Diagnosis Comments SCAN - LABS 01/01/2016 12:00 AM CDT documented in this encounter Results * SCAN - LABS (01/01/2016 12:00 AM CDT) Narrative 01/01/2016 12:00 AM CDT Ordered by an unspecified provider. us Historical Provider Final Res ult documented in this encounter Visit Diagnoses Not on filedocumented in this encounter Additional Health Concerns Infection Onset Date Last Indicated Resolved Time COVID19 10/21/2024 10/21/2024 documented as of this encounter Care Teams Spanish Tutor Relationship Specialty Start Date End Date Harry Jorgensen MD PCP - General 09/06/16 Taqueria Sullivan MD [address] [address] PCP - General 08/27/16 09/05/16 Harry Jorgensen MD PCP - General 04/21/14 08/26/16 Truman Moody MD [address] [address] Snack Bar Cashier Cardiology 02/01/19 09/16/24 Michael Quiros MD [address] [place] [address] 3 [place] [address] Referring Physician Interventional Cardiology 09/17/24 Mohan Rico MD [address] [facility] [address] [address] Consulting Physician Pulmonary Disease 09/17/24 Betty Calvin PA [address] [facility] [address] [place] [address] Physician Dental Office Coordinator Orthopedic Surgery 10/08/24 Sybil Alex, [facility] Pharmacist Pharmacy 10/29/24 documented as of this encounter
--- OUTSIDE RECORDS SUMMARY | 2024-11-03 14:46 | XMS_ITS | Encounter Summary ---
Author Organization [facility] Facility Care Team Providers Care Mop Handle Assembler Name Role Phone Harry Jorgensen MD Primary Care Provider + Taqueria Sullivan MD Primary Care Provider [phone] Harry Jorgensen MD Primary Care Provider + Truman Moody MD Unavailable [phone] Michael Quiros MD Unavailable [phone] Mohan Rico MD Unavailable [phone] Betty Calvin Unavailable [phone] Sybil Alex [facility] Unavailable Unavailable Encounter Details Date Type Department Care Team (Latest Contact Info) Description 12/07/2015 Orders Only [facility]G CLINCONV ProviderKrzysztof MD [address] [place] [address] Social History Tobacco Use Types Packs/Day Years Used Date Smoking Tobacco: Never Alcohol Use Standard Drinks/Week Comments No 0 (1 standard drink = 0.6 oz pur e alcohol) Comments Unknown Sex and Gender Information Value Date Recorded Sex Assigned at Not on file Legal Sex Female 10:24 AM RESEARCH SCHOLAR Gender Identity Female 01/15/2021 9:27 PM CDT Sexual Orientation Straight 01/15/2021 9: 27 PM CDT documented as of this encounter Plan of Treatment Not on file documented as of this encounter Procedures Procedure Name Priority Date/Time Associated Diagnosis Comments SCAN - LABS 12/07/2015 12:00 AM CDT documented in this encounter Results * SCAN - LABS (12/07/2015 12:00 AM CDT) Narrative 12/07/2015 12:00 AM CDT Ordered by an unspecified provider. us Historical Provider Final Res ult documented in this encounter Visit Diagnoses Not on filedocumented in this encounter Additional Health Concerns Infection Onset Date Last Indicated Resolved Time COVID19 10/21/2024 10/21/2024 documented as of this encounter Care Teams Mop Handle Assembler Relationship Specialty Start Date End Date Harry Jorgensen MD PCP - General 09/06/16 Taqueria Sullivan MD [address] [address] PCP - General 08/27/16 09/05/16 Harry Jorgensen MD PCP - General 04/21/14 08/26/16 Truman Moody MD [address] [address] Control Manager Cardiology 02/01/19 09/16/24 Michael Quiros MD [address] [place] [address] 3 [place] [address] Referring Physician Interventional Cardiology 09/17/24 Mohan Rico MD [address] [facility] [address] [address] Consulting Physician Pulmonary Disease 09/17/24 Betty Calvin PA [address] [facility] [address] [place] [address] Physician Vacation Planner Orthopedic Surgery 10/08/24 Sybil Alex, [facility] Pharmacist Pharmacy 10/29/24 documented as of this encounter
--- OUTSIDE RECORDS SUMMARY | 2024-11-03 14:46 | XMS_ITS | Encounter Summary ---
Author Organization [facility] Facility Care Team Providers Care Data Communications Technician Name Role Phone Harry Jorgensen MD Primary Care Provider + Truman Moody MD Unavailable [phone] Michael Quiros MD Unavailable [phone] Mohan Rico MD Unavailable [phone] Betty Calvin Unavailable [phone] Sybil Alex [facility] Unavailable Unavailable Encounter Details Date Type Department Care Team (Latest Contact Info) Description 03/26/2017 Orders Only MMG CLINCONV ProviderKrzysztof MD [address] [place] [address] Social History Tobacco Use Types Packs/Day Years Used Date Smoking Tobacco: Never Alcohol Use Standard Drinks/Week Comments No 0 (1 standard drink = 0.6 oz pur e alcohol) Comments Unknown Sex and Gender Information Value Date Recorded Sex Assigned at Not on file Legal Sex Female 10:24 AM CAR PACKER Gender Identity Female 01/15/2021 9:27 PM CDT Sexual Orientation Straight 01/15/2021 9: 27 PM CDT documented as of this encounter Plan of Treatment Not on file documented as of this encounter Procedures Procedure Name Priority Date/Time Associated Diagnosis Comments SCAN - LABS 04/02/2017 12:00 AM CDT SCAN - LABS 04/02/2017 12:00 AM CDT SCAN - LABS 03/26/2017 12:00 AM CDT CARDIOLOGY REPORT 03/26/2017 12: 00 AM CDT documented in this encounter Results * SCAN - LABS (04/02/2017 12:00 AM CDT) Narrative 04/02/2017 12:00 AM CDT Ordered by an unspecified provider. us Historical Provider Final Res ult * SCAN - LABS (04/02/2017 12:00 AM CDT) Narrative 04/02/2017 12:00 AM CDT Ordered by an unspecified provider. Historical Provider Final Res ult * SCAN - LABS (03/26/2017 12:00 AM CDT) Narrative 03/26/2017 12:00 AM CDT Ordered by an unspecified provider. Historical Provider Final Res ult * CARDIOLOGY REPORT (03/26/2017 12:00 AM CDT) Anatomical Region Laterality Modality Other Narrative 03/26/2017 12:00 AM CDT Ordered by an unspecified provider. Historical Provider [facility] JACKI JOHNSON Final Result documented in this encounter Visit Diagnoses Not on filedocumented in this encounter Additional Health Concerns Infection Onset Date Last Indicated Resolved Time COVID19 10/21/2024 10/21/2024 documented as of this encounter Care Teams Data Communications Technician Relationship Specialty Start Date End Date Harry Jorgensen MD PCP - General 09/06/16 Truman Moody MD Economic Historian Cardiology 02/01/19 09/16/24 Michael Quiros MD [address] [place] [address] 3 [place] [address] Referring Physician Interventional Cardiology 09/17/24 Mohan Rico MD [address] [facility] [address] [place] [address] Consulting Physician Pulmonary Disease 09/17/24 Betty Calvin PA [address] [facility] [address] [place] [address] Physician Digital Account Director Orthopedic Surgery 10/08/24 Sybil Alex, [facility] Pharmacist Pharmacy 10/29/24 documented as of this encounter
--- OUTSIDE RECORDS SUMMARY | 2024-11-03 14:46 | XMS_ITS | Encounter Summary ---
Author Organization [facility] Facility Care Team Providers Care Copper Tapper Name Role Phone Harry Jorgensen MD Primary Care Provider + Taqueria Sullivan MD Primary Care Provider [phone] Harry Jorgensen MD Primary Care Provider + Truman Moody MD Unavailable [phone] Michael Quiros MD Unavailable [phone] Mohan Rico MD Unavailable [phone] Betty Calvin Unavailable [phone] Sybil Alex [facility] Unavailable Unavailable Encounter Details Date Type Department Care Team (Latest Contact Info) Description 07/08/2016 Orders Only MMG CLINCONV ProviderKrzysztof MD [address] [place] [address] Social History Tobacco Use Types Packs/Day Years Used Date Smoking Tobacco: Never Alcohol Use Standard Drinks/Week Comments No 0 (1 standard drink = 0.6 oz pur e alcohol) Comments Unknown Sex and Gender Information Value Date Recorded Sex Assigned at Not on file Legal Sex Female 10:24 AM AUGER OPERATOR Gender Identity Female 01/15/2021 9:27 PM CDT Sexual Orientation Straight 01/15/2021 9: 27 PM CDT documented as of this encounter Plan of Treatment Not on file documented as of this encounter Procedures Procedure Name Priority Date/Time Associated Diagnosis Comments SCAN - LABS 07/11/2016 12:00 AM AUGER OPERATOR documented in this encounter Results * SCAN - LABS (07/11/2016 12:00 AM AUGER OPERATOR) Narrative 07/11/2016 12:00 AM AUGER OPERATOR Ordered by an unspecified provider. us Historical Provider Final Res ult documented in this encounter Visit Diagnoses Not on filedocumented in this encounter Additional Health Concerns Infection Onset Date Last Indicated Resolved Time COVID19 10/21/2024 10/21/2024 documented as of this encounter Care Teams Copper Tapper Relationship Specialty Start Date End Date Harry Jorgensen MD PCP - General 09/06/16 Taqueria Sullivan MD [address] [facility] [address], [place] [address] PCP - General 08/27/16 09/05/16 Harry Jorgensen MD PCP - General 04/21/14 08/26/16 Truman Moody MD [address] [address] Certified Cytotechnologist Cardiology 02/01/19 09/16/24 Michael Quiros MD [address] [place] [address] 3 [place] [address] Referring Physician Interventional Cardiology 09/17/24 Mohan Rico MD [address] [address] Consulting Physician Pulmonary Disease 09/17/24 Betty Calvin PA [address] [facility] [address] [place] [address] Physician Casino Cage Supervisor Orthopedic Surgery 10/08/24 Sybil Alex [facility] Pharmacist Pharmacy 10/29/24 documented as of this encounter
--- OUTSIDE RECORDS SUMMARY | 2024-11-03 14:46 | XMS_ITS | Encounter Summary ---
Author Organization [facility] Facility Care Team Providers Care Developmental Therapist Name Role Phone Harry Jorgensen MD Primary Care Provider + Taqueria Sullivan MD Primary Care Provider [phone] Harry Jorgensen MD Primary Care Provider + Truman Moody MD Unavailable [phone] Michael Quiros MD Unavailable [phone] Mohan Rico MD Unavailable [phone] Betty Calvin Unavailable [phone] Sybil Alex [facility] Unavailable Unavailable Encounter Details Date Type Department Care Team (Latest Contact Info) Description 04/17/2016 Orders Only MMG CLINCONV ProviderKrzysztof MD [address] [place] [address] Social History Tobacco Use Types Packs/Day Years Used Date Smoking Tobacco: Never Alcohol Use Standard Drinks/Week Comments No 0 (1 standard drink = 0.6 oz pur e alcohol) Comments Unknown Sex and Gender Information Value Date Recorded Sex Assigned at Not on file Legal Sex Female 10:24 AM TEXTURE ARTIST Gender Identity Female 01/15/2021 9:27 PM CDT Sexual Orientation Straight 01/15/2021 9: 27 PM CDT documented as of this encounter Plan of Treatment Not on file documented as of this encounter Procedures Procedure Name Priority Date/Time Associated Diagnosis Comments SCAN - LABS 04/17/2016 12:00 AM TEXTURE ARTIST documented in this encounter Results * SCAN - LABS (04/17/2016 12:00 AM TEXTURE ARTIST) Narrative 04/17/2016 12:00 AM TEXTURE ARTIST Ordered by an unspecified provider. us Historical Provider Final Res ult documented in this encounter Visit Diagnoses Not on filedocumented in this encounter Additional Health Concerns Infection Onset Date Last Indicated Resolved Time COVID19 10/21/2024 10/21/2024 documented as of this encounter Care Teams Developmental Therapist Relationship Specialty Start Date End Date Harry Jorgensen MD PCP - General 09/06/16 Taqueria Sullivan MD [address] [facility] [address], [place] [address] PCP - General 08/27/16 09/05/16 Harry Jorgensen MD PCP - General 04/21/14 08/26/16 Truman Moody MD [address] [address] Explosives Mixer Operator Cardiology 02/01/19 09/16/24 Michael Quiros MD [address] [place] [address] 3 [place] [address] Referring Physician Interventional Cardiology 09/17/24 Mohan Rico MD [address] [address] Consulting Physician Pulmonary Disease 09/17/24 Betty Calvin PA [address] [facility] [address] [place] [address] Physician Tare Worker Orthopedic Surgery 10/08/24 Sybli Alex [facility] Pharmacist Pharmacy 10/29/24 documented as of this encounter
--- OUTSIDE RECORDS SUMMARY | 2024-11-03 14:46 | XMS_ITS | Encounter Summary ---
Author Organization [facility] Facility Care Team Providers Care Waxer Tender Name Role Phone Harry Jorgensen MD Primary Care Provider + Taqueria Sullivan MD Primary Care Provider [phone] Harry Jorgensen MD Primary Care Provider + Truman Moody MD Unavailable [phone] Michael Quiros MD Unavailable [phone] Mohan Rico MD Unavailable [phone] Betty Calvin Unavailable [phone] Sybil Alex [facility] Unavailable Unavailable Encounter Details Date Type Department Care Team (Latest Contact Info) Description 05/13/2016 Orders Only MMG CLINCONV ProviderKrzysztof MD [address] [place] [address] Social History Tobacco Use Types Packs/Day Years Used Date Smoking Tobacco: Never Alcohol Use Standard Drinks/Week Comments No 0 (1 standard drink = 0.6 oz pur e alcohol) Comments Unknown Sex and Gender Information Value Date Recorded Sex Assigned at Not on file Legal Sex Female 10:24 AM SUBWAY TRAIN OPERATOR Gender Identity Female 01/15/2021 9:27 PM CDT Sexual Orientation Straight 01/15/2021 9: 27 PM CDT documented as of this encounter Plan of Treatment Not on file documented as of this encounter Procedures Procedure Name Priority Date/Time Associated Diagnosis Comments SCAN - LABS 05/13/2016 12:00 AM SUBWAY TRAIN OPERATOR documented in this encounter Results * SCAN - LABS (05/13/2016 12:00 AM SUBWAY TRAIN OPERATOR) Narrative 05/13/2016 12:00 AM SUBWAY TRAIN OPERATOR Ordered by an unspecified provider. us Historical Provider Final Res ult documented in this encounter Visit Diagnoses Not on filedocumented in this encounter Additional Health Concerns Infection Onset Date Last Indicated Resolved Time COVID19 10/21/2024 10/21/2024 documented as of this encounter Care Teams Waxer Tender Relationship Specialty Start Date End Date Harry Jorgensen MD PCP - General 09/06/16 Taqueria Sullivan MD [address] [facility] [address] [address] PCP - General 08/27/16 09/05/16 Harry Jorgensen MD PCP - General 04/21/14 08/26/16 Truman Moody MD [address] [address] Linen Room Worker Cardiology 02/01/19 09/16/24 Michael Quiros MD [address] [place] [address] 3 [place] [address] Referring Physician Interventional Cardiology 09/17/24 Mohan Rico MD [address] [address] Consulting Physician Pulmonary Disease 09/17/24 Betty Calvin PA [address] [facility] [address] [place] [address] Physician Driveway Sealer Orthopedic Surgery 10/08/24 Sybil Alex [facility] Pharmacist Pharmacy 10/29/24 documented as of this encounter
--- OUTSIDE RECORDS SUMMARY | 2024-11-03 14:46 | XMS_ITS | Encounter Summary ---
Author Organization [facility] Facility Care Team Providers Care Case Consultant Name Role Phone Harry Jorgensen MD Primary Care Provider + Taqueria Sullivan MD Primary Care Provider [phone] Harry Jorgensen MD Primary Care Provider + Truman Moody MD Unavailable [phone] Michael Quiros MD Unavailable [phone] Mohan Rico MD Unavailable [phone] Betty Calvin Unavailable [phone] Sybil Alex [facility] Unavailable Unavailable Encounter Details Date Type Department Care Team (Latest Contact Info) Description 01/01/2016 Orders Only MMG CLINCONV ProviderKrzysztof MD [address] [place] [address] Social History Tobacco Use Types Packs/Day Years Used Date Smoking Tobacco: Never Alcohol Use Standard Drinks/Week Comments No 0 (1 standard drink = 0.6 oz pur e alcohol) Comments Unknown Sex and Gender Information Value Date Recorded Sex Assigned at Not on file Legal Sex Female 10:24 AM CEMENT TESTER ASSISTANT Gender Identity Female 01/15/2021 9:27 PM CDT Sexual Orientation Straight 01/15/2021 9: 27 PM CDT documented as of this encounter Plan of Treatment Not on file documented as of this encounter Procedures Procedure Name Priority Date/Time Associated Diagnosis Comments SCAN - LABS 01/15/2016 12:00 AM CDT documented in this encounter Results * SCAN - LABS (01/15/2016 12:00 AM CDT) Narrative 01/15/2016 12:00 AM CDT Ordered by an unspecified provider. us Historical Provider Final Res ult documented in this encounter Visit Diagnoses Not on filedocumented in this encounter Additional Health Concerns Infection Onset Date Last Indicated Resolved Time COVID19 10/21/2024 10/21/2024 documented as of this encounter Care Teams Case Consultant Relationship Specialty Start Date End Date Harry Jorgensen MD PCP - General 09/06/16 Taqueria Sullivan MD [address] [address] PCP - General 08/27/16 09/05/16 Harry Jorgensen MD PCP - General 04/21/14 08/26/16 Truman Moody MD [address] [address] Pump Press Operator Cardiology 02/01/19 09/16/24 Michael Quiros MD [address] [place] [address] 3 [place] [address] Referring Physician Interventional Cardiology 09/17/24 Mohan Rico MD [address] [facility] [address] [address] Consulting Physician Pulmonary Disease 09/17/24 Betty Calvin PA [address] [facility] [address] [place] [address] Physician Research Intern Orthopedic Surgery 10/08/24 Sybil Alex, [facility] Pharmacist Pharmacy 10/29/24 documented as of this encounter
--- OUTSIDE RECORDS SUMMARY | 2024-11-03 14:46 | XMS_ITS | Encounter Summary ---
Author Organization [facility] Facility Care Team Providers Care Child Care Giver Name Role Phone Harry Jorgensen MD Primary Care Provider + Taqueria Sullivan MD Primary Care Provider [phone] Harry Jorgensen MD Primary Care Provider + Truman Moody MD Unavailable [phone] Michael Quiros MD Unavailable [phone] Mohan iRco MD Unavailable [phone] eBtty Calvin Unavailable [phone] Sybil Alex [facility] Unavailable Unavailable Encounter Details Date Type Department Care Team (Latest Contact Info) Description 07/22/2016 Orders Only MMG CLINCONV ProviderKrzysztof MD [address] [place] [address] Social History Tobacco Use Types Packs/Day Years Used Date Smoking Tobacco: Never Alcohol Use Standard Drinks/Week Comments No 0 (1 standard drink = 0.6 oz pur e alcohol) Comments Unknown Sex and Gender Information Value Date Recorded Sex Assigned at Not on file Legal Sex Female 10:24 AM APPLICATION INTEGRATION ENGINEER Gender Identity Female 01/15/2021 9:27 PM CDT Sexual Orientation Straight 01/15/2021 9: 27 PM CDT documented as of this encounter Plan of Treatment Not on file documented as of this encounter Procedures Procedure Name Priority Date/Time Associated Diagnosis Comments SCAN - LABS 07/08/2016 12:00 AM APPLICATION INTEGRATION ENGINEER documented in this encounter Results * SCAN - LABS (07/08/2016 12:00 AM APPLICATION INTEGRATION ENGINEER) Narrative 07/08/2016 12:00 AM APPLICATION INTEGRATION ENGINEER Ordered by an unspecified provider. us Historical Provider Final Res ult documented in this encounter Visit Diagnoses Not on filedocumented in this encounter Additional Health Concerns Infection Onset Date Last Indicated Resolved Time COVID19 10/21/2024 10/21/2024 documented as of this encounter Care Teams Child Care Giver Relationship Specialty Start Date End Date Harry Jorgensen MD PCP - General 09/06/16 Taqueria Sullivan MD [address] [facility] [address] [address] PCP - General 08/27/16 09/05/16 Harry Jorgensen MD PCP - General 04/21/14 08/26/16 Truman Moody MD [address] [address] Java Web Architect Cardiology 02/01/19 09/16/24 Michael Quiros MD [address] [place] [address] 3 [place] [address] Referring Physician Interventional Cardiology 09/17/24 Mohan Rico MD [address] [address] Consulting Physician Pulmonary Disease 09/17/24 Betty Calvin PA [address] [facility] [address] [place] [address] Physician Sorting Supervisor Orthopedic Surgery 10/08/24 Sybil Alex [facility] Pharmacist Pharmacy 10/29/24 documented as of this encounter
--- OUTSIDE RECORDS SUMMARY | 2024-11-03 14:46 | XMS_ITS | Encounter Summary ---
Author Organization [facility] Facility Care Team Providers Care Hotel Breakfast Attendant Name Role Phone Harry Jorgensen MD Primary Care Provider + Taqueria Sullivan MD Primary Care Provider [phone] Harry Jorgensen MD Primary Care Provider + Truman Moody MD Unavailable [phone] Michael Quiros MD Unavailable [phone] Mohan Rico MD Unavailable [phone] Betty Calvin Unavailable [phone] Sybil Alex [facility] Unavailable Unavailable Encounter Details Date Type Department Care Team (Latest Contact Info) Description 01/08/2016 Orders Only MMG CLINCONV ProviderKrzysztof MD [address] [place] [address] Social History Tobacco Use Types Packs/Day Years Used Date Smoking Tobacco: Never Alcohol Use Standard Drinks/Week Comments No 0 (1 standard drink = 0.6 oz pur e alcohol) Comments Unknown Sex and Gender Information Value Date Recorded Sex Assigned at Not on file Legal Sex Female 10:24 AM HAIR CLIPPER POWER Gender Identity Female 01/15/2021 9:27 PM CDT Sexual Orientation Straight 01/15/2021 9: 27 PM CDT documented as of this encounter Plan of Treatment Not on file documented as of this encounter Procedures Procedure Name Priority Date/Time Associated Diagnosis Comments CARDIOLOGY REPORT 01/08/2016 12: 00 AM CDT documented in this encounter Results * CARDIOLOGY REPORT (01/08/2016 12:00 AM CDT) Anatomical Region Laterality Modality Other Narrative 01/08/2016 12:00 AM CDT Ordered by an unspecified provider. us Historical Provider [facility] JACKI JOHNSON Final Result documented in this encounter Visit Diagnoses Not on filedocumented in this encounter Additional Health Concerns Infection Onset Date Last Indicated Resolved Time COVID19 10/21/2024 10/21/2024 documented as of this encounter Care Teams Hotel Breakfast Attendant Relationship Specialty Start Date End Date Harry Jorgensen MD PCP - General 09/06/16 Taqueria Sullivan MD [address] [address] PCP - General 08/27/16 09/05/16 Harry Jorgensen MD PCP - General 04/21/14 08/26/16 Truman Moody MD [address] [address] Roller Cardiology 02/01/19 09/16/24 Michael Quiros MD [address] [place] [address] 3 [place] [address] Referring Physician Interventional Cardiology 09/17/24 Mohan Rico MD [address] [address] Consulting Physician Pulmonary Disease 09/17/24 Betty Calvin PA [address] [facility] [address] [place] [address] Physician Clinical Trials Nurse Orthopedic Surgery 10/08/24 Sybil Alex [facility] Pharmacist Pharmacy 10/29/24 documented as of this encounter
--- OUTSIDE RECORDS SUMMARY | 2024-11-03 14:46 | XMS_ITS | Encounter Summary ---
Author Organization [facility] Facility Care Team Providers Care Marketing Director Assisted Living Name Role Phone Harry Jorgensen MD Primary Care Provider + Taqueria Sullivan MD Primary Care Provider [phone] Harry Jorgensen MD Primary Care Provider + Truman Moody MD Unavailable [phone] Michael Quiros MD Unavailable [phone] Mohan Rico MD Unavailable [phone] Betty Calvin Unavailable [phone] Sybil Alex [facility] Unavailable Unavailable Encounter Details Date Type Department Care Team (Latest Contact Info) Description 12/15/2015 Orders Only MMG CLINCONV ProviderKrzysztof MD [address] [place] [address] Social History Tobacco Use Types Packs/Day Years Used Date Smoking Tobacco: Never Alcohol Use Standard Drinks/Week Comments No 0 (1 standard drink = 0.6 oz pur e alcohol) Comments Unknown Sex and Gender Information Value Date Recorded Sex Assigned at Not on file 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 us Historical Provider Final Res ult documented in this encounter Visit Diagnoses Not on filedocumented in this encounter Additional Health Concerns Infection Onset Date Last Indicated Resolved Time COVID19 10/21/2024 10/21/2024 documented as of this encounter Care Teams Marketing Director Assisted Living Relationship Specialty Start Date End Date Harry Jorgensen MD PCP - General 09/06/16 Taqueria Sullivan MD [address] [address] PCP - General 08/27/16 09/05/16 Harry Jorgensen MD PCP - General 04/21/14 08/26/16 Truman Moody MD [address] [address] Rock Mason Apprentice Cardiology 02/01/19 09/16/24 Michael Quiros MD [address] [place] [address] 3 [place] [address] Referring Physician Interventional Cardiology 09/17/24 Mohan Rico MD [address] [address] Consulting Physician Pulmonary Disease 09/17/24 Betty Calvin PA [address] [facility] [address] [place] [address] Physician National Account Representative Orthopedic Surgery 10/08/24 Sybil Alex, [facility] Pharmacist Pharmacy 10/29/24 documented as of this encounter
--- OUTSIDE RECORDS SUMMARY | 2024-11-03 14:46 | XMS_ITS | Encounter Summary ---
Author Organization [facility] Facility Care Team Providers Care Curing Pickling Packer Name Role Phone Harry Jorgensen MD Primary Care Provider + Taqueria Sullivan MD Primary Care Provider [phone] Harry Jorgensen MD Primary Care Provider + Trmuan Moody MD Unavailable [phone] Michael Quiros MD Unavailable [phone] Mohan Rico MD Unavailable [phone] Betty Calvin Unavailable [phone] Sybil Alex [facility] Unavailable Unavailable Encounter Details Date Type Department Care Team (Latest Contact Info) Description 07/18/2016 Orders Only [facility] CLINCONV ProviderKrzysztof MD [address] [place] [address] Social History Tobacco Use Types Packs/Day Years Used Date Smoking Tobacco: Never Alcohol Use Standard Drinks/Week Comments No 0 (1 standard drink = 0.6 oz pur e alcohol) Comments Unknown Sex and Gender Information Value Date Recorded Sex Assigned at Not on file 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 us Historical Provider Final Res ult documented in this encounter Visit Diagnoses Not on filedocumented in this encounter Additional Health Concerns Infection Onset Date Last Indicated Resolved Time COVID19 10/21/2024 10/21/2024 documented as of this encounter Care Teams Curing Pickling Packer Relationship Specialty Start Date End Date Harry Jorgensen MD PCP - General 09/06/16 Taqueria Sullivan MD [address] [facility] [address], [place] [address] PCP - General 08/27/16 09/05/16 Harry Jorgensen MD PCP - General 04/21/14 08/26/16 Truman Moody MD [address] [address] High Lead Yarder Cardiology 02/01/19 09/16/24 Michael Quiros MD [address] [place] [address] [address] [place] [address] Referring Physician Interventional Cardiology 09/17/24 Mohan Rico MD [address] [address] Consulting Physician Pulmonary Disease 09/17/24 Betty Calvin PA [address] [facility] [address] [place] [address] Physician Vegetable Buncher Orthopedic Surgery 10/08/24 Sybil Alex [facility] Pharmacist Pharmacy 10/29/24 documented as of this encounter
--- OUTSIDE RECORDS SUMMARY | 2024-11-03 14:47 | XMS_ITS | Encounter Summary ---
Author Organization [facility] Facility Care Team Providers Care Management Lead Name Role Phone Harry Jorgensen MD Primary Care Provider + Taqueria Sullivan MD Primary Care Provider [phone] Harry Jorgensen MD Primary Care Provider + Truman Moody MD Unavailable [phone] Michael Quiros MD Unavailable [phone] Mohan Rico MD Unavailable [phone] Betty Calvin Unavailable [phone] Sybil Alex [facility] Unavailable Unavailable Encounter Details Date Type Department Care Team (Latest Contact Info) Description 10/27/2015 Orders Only [facility] CLINCONV ProviderKrzysztof MD [address] [place] [address] Social History Tobacco Use Types Packs/Day Years Used Date Smoking Tobacco: Never Alcohol Use Standard Drinks/Week Comments No 0 (1 standard drink = 0.6 oz pur e alcohol) Comments Unknown Sex and Gender Information Value Date Recorded Sex Assigned at Not on file 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 us Historical Provider Final Res ult documented in this encounter Visit Diagnoses Not on filedocumented in this encounter Additional Health Concerns Infection Onset Date Last Indicated Resolved Time COVID19 10/21/2024 10/21/2024 documented as of this encounter Care Teams Management Lead Relationship Specialty Start Date End Date Harry Jorgensen MD PCP - General 09/06/16 Taqueria Sullivan MD [address] [address] PCP - General 08/27/16 09/05/16 Harry Jorgensen MD PCP - General 04/21/14 08/26/16 Truman Moody MD [address] [address] Senior Sales Operations Analyst Cardiology 02/01/19 09/16/24 Michael Quiros MD [address] [place] [address] [address] [place] [address] Referring Physician Interventional Cardiology 09/17/24 Mohan Rico MD [address] [facility] [address] [address] Consulting Physician Pulmonary Disease 09/17/24 Betty Calvin PA [address] [facility] [address] [place] [address] Physician Crank Hand Orthopedic Surgery 10/08/24 Sybil Alex, [facility] Pharmacist Pharmacy 10/29/24 documented as of this encounter
--- OUTSIDE RECORDS SUMMARY | 2024-11-03 14:47 | XMS_ITS | Data Portability ---
Author Organization [facility] LUISRichard Nieves Address [address] [place] [place] [address] Care Team Providers Care Mounter Flutes And Piccolos Name Role Phone TOM SMITH Primary Care Provider Assessment Encounter Date Assessment Date Assessment LastModified by Organization Details LastModified Time 01/29/2024 01/29/2024 LABS: 01/22/24. Cholesterol 159, HDL 61, triglycerides 87, LDL 81, glucose 82, BUN 21, creatinine 0.61, EGFR 93, sodium 138, potassium 4.1, chloride 105, carbon dioxide 26, calcium 9.1, protein 6.2, albumin 3.6, globulin 2.6, bilirubin 0.6, alkaline phosphate 103, AST 17, ALT 20, WBC 7.0, hemoglobin 14.1, hematocrit 43.3, platelet count 160. Labs completed on 07/24/2023 WBC 6.2, Hgb 13.3, Platelets 190, Glucose 80, BUN 12, Creatinine 0.67, sodium 139, potassium 3.9, chloride 104, Co2 28, Calcium 9.1, protein 6.3, bilirubin 0.6, ALK phos 106, AST 22, ALT 18, Cholesterol 148, HDL 53, Trig 138, LDL 73 EKG done on 01/29/2024 shows normal sinus rhythm with a rate of 60 beats per minute, first-degree AV block, nonspecific T-wave abnormality, QT corrected is 444 milliseconds. Compared to the previous study done on 08/30/2023 poor R-wave progression is no longer seen and nonspecific T-wave abnormalities is now seen. ASSESSMENT Dyspnea on exertion, improved but not resolved with her weight loss with no ischemia on a Lexiscan Myoview stress test on 06/18/2021 Atrial fibrillation - I48.91 (Primary), paroxysmal since 2003 status post 3 atrial fibrillation ablations with recurrence and on sotalol/verapamil which is controlling her episodes on Eliquis anticoagulation she was placed on sotalol by her EP physician Dr..s Stoutis been on it quite a while Mildly dilated right ventricle with normal RV systolic function on echocardiogram done on 06/15/2021 Normal coronary arteries - Z03.89, 2007 with a normal Lexiscan Myoview stress test on 04/26/2015 and again on 05/26/2017 and again with a Lexiscan Myoview stress test on 06/18/2021 without ischemia Pure hypercholesterolem ia- E78.00, LDL adequately controlled on rosuvastatin 5 mgs daily, had myalgias on 10 mg of atorvastatin. Pacemaker - Z95.0, Placed in 2007 for syncope due to pauses with generator change on 01/08/2016, [employer] pacemaker Obesity - E66.9 MARIANO on CPAP - G47.33, intolerant to CPAP but now wearing her oral device as well managed by Dr. Kelley Hx of edema - Z87.898, well controlled on Lasix and wearing compression stockings Hx of lower gastrointestinal bleeding - Z87.19, Diverticular bleed in 2008, without recurrence Plan: I recommend a heart healthy diet low in fat, low in cholesterol and low in sodium. I will set her up for a [employer] pacemaker check soon. She is complaining of the cost of Eliquis. So I can obtain Xarelto through the [facility] facility under the 3 0 problems it comes to Xarelto Xarelto while I take that twice a day or once a day at the dinner [id number] program and given her current anticoagulation for a much lower cost so I asked her to start on Xarelto 20 mg daily at the dinner meal 48 hours after her last dose of Eliquis. I told her if she has any bleeding to inform me. I asked her to use her walker whenever she walks and inform me if she has any falls. Fortunately she has not had any further falls since being compliant with her walker. I will continue her furosemide 20 mg p.o. daily. magnesium oxide 400 mg daily, rosuvastatin 5 mg daily sotalol 160 mg p.o. b.i.d. and verapamil SR 240 mg daily. I asked her to return in 6 months time and will obtain a fasting lipid profile, complete metabolic profile and a CBC and mg level prior follow-up visit. I asked her to return sooner if she has any cardiac issues or problems. Cardiology Tests: ECHOCARDIOGRAM 06/15/21.The left atrium is mildly dilated. Left ventricular systolic function is normal.Ejection Fraction = 55-60%.The right ventricle is mildly dilated. RVDd = '4.1 ' cm.The right ventricular systolic function is normal.Normal right heart pressures.There is physiologic tricuspid regurgitation. ECHOCARDIOGRAM 12/01/2018 mildly dilated left atrium, normal left ventricular systolic function with an ejection fraction of 55-60%, pacemaker lead noted in the right atrium and right ventricle. Trace to mild tricuspid regurgitation and estimated right atrial pressure of 0-5 mmHg ECHOCARDIOGRAM 03/24/07 TDS, S/P pericardiocentesis , Left atrial enlargement with low normal left ventricle function, slightly depressed right ventricle function, circumferential pericardial effusion seen both anteriorly and posteriorly, posterior pericardium appears to track the left ventricle in both systole and diastole LEXISCAN MYOVIEW STRESS TEST 06/18/21. No evidence of ischemia of the left ventricle.Small apical fixed defect consistent with apical thinning artifact with normal apical wall motion.Normal left ventricular cavity size, wall motion, and calculated left ventricular systolic ejection fraction of 84%. LEXISCAN MYOVIEW STRESS TEST 01/08/2019 with no significant Lexiscan induced ischemic EKG changes. Study was fairly well tolerated. The Myoview images showed no evidence of ischemia left ventricle, small mild anterior defect noted at rest supine images less pronounced in the rest stress supine image and resolved with prone imaging consistent with breast attenuation artifact, there is normal left ventricular cavity size, wall motion and calculated left ventricular systolic ejection fraction of 74%. STRESS TEST Lexiscan 05/26/2017 no evidence of ischemia or infarction of left ventricle, normal left ventricular cavity size wall motion and calculated LVEF of 66%, no Lexiscan induced ischemic EKG changes, study was well-tolerated STRESS TEST LEXISCAN: 04/26/15 no evidence of ischemia or infarction of the left ventricle, normal left ventricle cavity size, wall motion and calculated lvef of 63%, no lexiscan induced ischemic ecg changes, study was well tolerated STRESS TEST MYOVIEW: at [facility],05/01/12, normal rest and pharmalogic stress myocardial perfusion withnormal left ventricle size and systolic function, essentially unchanged from prior study, no evidence of ischemia CARDIAC CATHETERIZATION CATH: 01/02/07 no angiographically visible significant coronary artery disease noted, normal left ventricle systolic function Not available 01/29/2024 11:15:25 08/12/2024 08/12/2024 Labs completed 07/30/2024 Cholesterol 149, Triglycerides 105, HDL 57, LDL 73, Glucose 83, BUN 17, Creatinine 0.71, eGFR 88, Sodium 140, Potassium 4.4, Chloride 104, Co2 29, Calcium 9.5, Protein 6.7, Albumin 4.1, Bilirubin 0.7, Alk phos 110, AST 17, ALT 19, Magnesium 2.3, WBC 7.3, Hgb 15.4, Hct 46.3, Plt 207 LABS: 01/22/24. Cholesterol 159, HDL 61, triglycerides 87, LDL 81, glucose 82, BUN 21, creatinine 0.61, EGFR 93, sodium 138, potassium 4.1, chloride 105, carbon dioxide 26, calcium 9.1, protein 6.2, albumin 3.6, globulin 2.6, bilirubin 0.6, alkaline phosphate 103, AST 17, ALT 20, WBC 7.0, hemoglobin 14.1, hematocrit 43.3, platelet count 160. Labs completed on 07/24/2023 WBC 6.2, Hgb 13.3, Platelets 190, Glucose 80, BUN 12, Creatinine 0.67, sodium 139, potassium 3.9, chloride 104, Co2 28, Calcium 9.1, protein 6.3, bilirubin 0.6, ALK phos 106, AST 22, ALT 18, Cholesterol 148, HDL 53, Trig 138, LDL 73 EKG done on 08/12/2024 shows atrial pacing with a rate of 60 beats per minute, poor R-wave progression, nonspecific T-wave abnormality, QT corrected was normal at 426 milliseconds compared to the previous EKG which was last done on 01/29/2024, poor R-wave progression is now seen but poor R-wave progression was previously seen on EKG done on 08/30/2023 ASSESSMENT Preoperative cardiac evaluation prior to right knee arthroplasty scheduled for 09/28/2024 Dyspnea on exertion, improved with her weight loss with no ischemia on a Lexiscan Myoview stress test on 06/18/2021 Atrial fibrillation - I48.91 (Primary), paroxysmal since 2003 status post 3 atrial fibrillation ablations with recurrence and on sotalol/verapamil which is controlling her episodes on Xarelto anticoagulation and was placed on sotalol by her EP physician Dr. Lugo. Mildly dilated right ventricle with normal RV systolic function on echocardiogram done on 06/15/2021 Normal coronary arteries - Z03.89, 2007 with a normal Lexiscan Myoview stress test on 04/26/2015 and again on 05/26/2017 and again with a Lexiscan Myoview stress test on 06/18/2021 without ischemia Pure hypercholesterolem ia- E78.00, LDL adequately controlled on rosuvastatin 5 mgs daily, had myalgias on 10 mg of atorvastatin. Pacemaker - Z95.0, Placed in 2007 for syncope due to pauses with generator change on 01/08/2016, [employer] pacemaker Obesity - E66.9 MARIANO on CPAP - G47.33, intolerant to CPAP but now wearing her oral device as well managed by Dr. Kelley Hx of edema - Z87.898, well controlled on Lasix and wearing compression stockings Hx of lower gastrointestinal bleeding - Z87.19, Diverticular bleed in 2008, without recurrence Plan: I recommend a heart healthy diet low in fat, low in cholesterol and low in sodium. She has no cardiac contraindication of the procedure she is having no symptoms of chest pain or shortness of breath and had a Lexiscan Myoview stress test done on 06/18/2021 without any significant changes in her EKG. I asked her to hold her Xarelto 48 hours prior to her knee replacement surgery. She will continue to get pacemaker checks every 3 months and we will alternate between in office and remote checks. I recommend she continue Xarelto 20 mg with dinner meal each day, furosemide 20 mg p.o. daily. magnesium oxide 400 mg daily, rosuvastatin 5 mg daily sotalol 160 mg p.o. b.i.d. and verapamil SR 240 mg daily. I did tell her to take precautions with starting any new [id number] or prescription medications with her being on sotalol there are many life-threatening drug reaction so I asked her to ask her pharmacy before starting on any new medications [id number] or prescription. I asked her to return in 6 months time and will obtain a fasting lipid profile, complete metabolic profile and a CBC and mg level prior follow-up visit. I asked her to return sooner if she has any cardiac issues or problems. CARDIAC TESTING: ECHOCARDIOGRAM 06/15/21.The left atrium is mildly dilated. Left ventricular systolic function is normal.Ejection Fraction = 55-60%.The right ventricle is mildly dilated. RVDd = '4.1 ' cm.The right ventricular systolic function is normal.Normal right heart pressures.There is physiologic tricuspid regurgitation. ECHOCARDIOGRAM 12/01/2018 mildly dilated left atrium, normal left ventricular systolic function with an ejection fraction of 55-60%, pacemaker lead noted in the right atrium and right ventricle. Trace to mild tricuspid regurgitation and estimated right atrial pressure of 0-5 mmHg ECHOCARDIOGRAM 03/24/07 TDS, S/P pericardiocentesis , Left atrial enlargement with low normal left ventricle function, slightly depressed right ventricle function, circumferential pericardial effusion seen both anteriorly and posteriorly, posterior pericardium appears to track the left ventricle in both systole and diastole LEXISCAN MYOVIEW STRESS TEST 06/18/21. No evidence of ischemia of the left ventricle.Small apical fixed defect consistent with apical thinning artifact with normal apical wall motion.Normal left ventricular cavity size, wall motion, and calculated left ventricular systolic ejection fraction of 84%. LEXISCAN MYOVIEW STRESS TEST 01/08/2019 with no significant Lexiscan induced ischemic EKG changes. Study was fairly well tolerated. The Myoview images showed no evidence of ischemia left ventricle, small mild anterior defect noted at rest supine images less pronounced in the rest stress supine image and resolved with prone imaging consistent with breast attenuation artifact, there is normal left ventricular cavity size, wall motion and calculated left ventricular systolic ejection fraction of 74%. STRESS TEST Lexiscan 05/26/2017 no evidence of ischemia or infarction of left ventricle, normal left ventricular cavity size wall motion and calculated LVEF of 66%, no Lexiscan induced ischemic EKG changes, study was well-tolerated STRESS TEST LEXISCAN: 04/26/15 no evidence of ischemia or infarction of the left ventricle, normal left ventricle cavity size, wall motion and calculated lvef of 63%, no lexiscan induced ischemic ecg changes, study was well tolerated STRESS TEST MYOVIEW: at [facility],05/01/12, normal rest and pharmalogic stress myocardial perfusion withnormal left ventricle size and systolic function, essentially unchanged from prior study, no evidence of ischemia CARDIAC CATHETERIZATION CATH: 01/02/07 no angiographically visible significant coronary artery disease noted, normal left ventricle systolic function Not available 08/12/2024 10:14:34 09/21/2024 09/21/2024 Labs completed o n 09/17/2024 Magnesium 1.9, eGFR 84, Sodium 138, Potassium 3.8, Chloride 102, Co2 25, BUN 19, Creatinine 0.74, Glucose 95, Calcium 9.3, Bilirubin 0.3, Protein 6.5, Albumin 3.6, Alkphos 121, ALT 18, AST 27, WBC 9.05, hgb 13.9, Platelets 184 Labs completed 07/30/2024 Cholesterol 149, Triglycerides 105, HDL 57, LDL 73, Glucose 83, BUN 17, Creatinine 0.71, eGFR 88, Sodium 140, Potassium 4.4, Chloride 104, Co2 29, Calcium 9.5, Protein 6.7, Albumin 4.1, Bilirubin 0.7, Alk phos 110, AST 17, ALT 19, Magnesium 2.3, WBC 7.3, Hgb 15.4, Hct 46.3, Plt 207 LABS: 01/22/24. Cholesterol 159, HDL 61, triglycerides 87, LDL 81, glucose 82, BUN 21, creatinine 0.61, EGFR 93, sodium 138, potassium 4.1, chloride 105, carbon dioxide 26, calcium 9.1, protein 6.2, albumin 3.6, globulin 2.6, bilirubin 0.6, alkaline phosphate 103, AST 17, ALT 20, WBC 7.0, hemoglobin 14.1, hematocrit 43.3, platelet count 160. Labs completed on 07/24/2023 WBC 6.2, Hgb 13.3, Platelets 190, Glucose 80, BUN 12, Creatinine 0.67, sodium 139, potassium 3.9, chloride 104, Co2 28, Calcium 9.1, protein 6.3, bilirubin 0.6, ALK phos 106, AST 22, ALT 18, Cholesterol 148, HDL 53, Trig 138, LDL 73 EKG performed on 09/21/2024 shows atrial pacing at a rate of 60 beats per minute, low-voltage EKG. Poor R-wave progression, QT corrected is 440 milliseconds nonspecific T-wave abnormality anterior leads, compared to the previous EKG which was last done on 08/12/2024, there was no significant change. ASSESSMENT Preoperative cardiac evaluation prior to right knee arthroplasty scheduled for 09/28/2024 with the Lexiscan Myoview stress test performed on 09/16/2021 which was negative for ischemia and she continues to exercise. I will see her again on 09/27/2024 to be sure she is compensated before surgery to see if she has optimized for surgery on September 28. Atrial fibrillation - I48.91 (Primary), paroxysmal since 2003 status post 3 atrial fibrillation ablations with recurrence so as placed on sotalol/verapamil which is controlling her episodes on Xarelto anticoagulation and was placed on sotalol by her EP physician Dr. Lugo, last episode was 09/17/2024 lasting 12 to 14 hours after she forgot to take her sotalol dose. Mildly dilated right ventricle with normal RV systolic function on echocardiogram done on 06/15/2021 Normal coronary arteries - Z03.89, 2007 with a normal Lexiscan Myoview stress test on 04/26/2015 and again on 05/26/2017 and again with a Lexiscan Myoview stress test on 06/18/2021 without ischemia CHF diastolic, mildly decompensated Pure hypercholesterolem ia- E78.00, LDL adequately controlled on rosuvastatin 5 mgs daily, had myalgias on 10 mg of atorvastatin. Pacemaker - Z95.0, Placed in 2007 for syncope due to pauses with generator change on 01/08/2016, [employer] pacemaker Obesity - E66.9 MARIANO on CPAP - G47.33, intolerant to CPAP but now wearing her oral device as well managed by Dr. Kelley Hx of edema - Z87.898, well controlled on Lasix and wearing compression stockings Hx of lower gastrointestinal bleeding - Z87.19, Diverticular bleed in 2008, without recurrence Plan: I recommend a heart healthy diet low in fat, low in cholesterol and low in sodium. I would like to get her volume status improved before she goes into surgery so I will increase her furosemide from 20 mg to 40 mg daily and we will add potassium chloride 10 mEq daily i will have her return on 09/27/2024 to be sure she is compensated and ready for surgery on the following day which was 09/28/2024 if her heart failure is compensated then she has no cardiac contraindication of the procedure at that time. I asked her to continue to take verapamil SR 240 mg she can take a half a tablet if she goes in atrial fibrillation which seems to help convert her. She will hold her Xarelto 48 hours prior to her surgery and asked her to quit after her FridaySeptember 25 dose. I asked her to continue otherwise on Xarelto 20 mg with dinner meal each day, magnesium oxide 400 mg daily, rosuvastatin 5 mg daily sotalol 160 mg p.o. b.i.d. and verapamil SR 240 mg daily. I did tell her to take precautions with starting any new [id number] or prescription medications with her being on sotalol there are many life-threatening drug reaction so I asked her to ask her pharmacy before starting on any new medications [id number] or prescription. I will have her return on September 27 and we will have her get her basic metabolic profile that morning at [facility] because we will get same-day labs and I will see her on the afternoon of September 27. I will have her get a 2D echo Doppler prior to her visit to make sure her LV function is normal. I asked her to return sooner if she has any cardiac issues or problems. CARDIAC TESTING: ECHOCARDIOGRAM 06/15/21.The left atrium is mildly dilated. Left ventricular systolic function is normal.Ejection Fraction = 55-60%.The right ventricle is mildly dilated. RVDd = '4.1 ' cm.The right ventricular systolic function is normal.Normal right heart pressures.There is physiologic tricuspid regurgitation. ECHOCARDIOGRAM 12/01/2018 mildly dilated left atrium, normal left ventricular systolic function with an ejection fraction of 55-60%, pacemaker lead noted in the right atrium and right ventricle. Trace to mild tricuspid regurgitation and estimated right atrial pressure of 0-5 mmHg ECHOCARDIOGRAM 03/24/07 TDS, S/P pericardiocentesis , Left atrial enlargement with low normal left ventricle function, slightly depressed right ventricle function, circumferential pericardial effusion seen both anteriorly and posteriorly, posterior pericardium appears to track the left ventricle in both systole and diastole LEXISCAN MYOVIEW STRESS TEST 06/18/21. No evidence of ischemia of the left ventricle.Small apical fixed defect consistent with apical thinning artifact with normal apical wall motion.Normal left ventricular cavity size, wall motion, and calculated left ventricular systolic ejection fraction of 84%. LEXISCAN MYOVIEW STRESS TEST 01/08/2019 with no significant Lexiscan induced ischemic EKG changes. Study was fairly well tolerated. The Myoview images showed no evidence of ischemia left ventricle, small mild anterior defect noted at rest supine images less pronounced in the rest stress supine image and resolved with prone imaging consistent with breast attenuation artifact, there is normal left ventricular cavity size, wall motion and calculated left ventricular systolic ejection fraction of 74%. STRESS TEST Lexiscan 05/26/2017 no evidence of ischemia or infarction of left ventricle, normal left ventricular cavity size wall motion and calculated LVEF of 66%, no Lexiscan induced ischemic EKG changes, study was well-tolerated STRESS TEST LEXISCAN: 06/26/14 no evidence of ischemia or infarction of the left ventricle, normal left ventricle cavity size, wall motion and calculated lvef of 63%, no lexiscan induced ischemic ecg changes, study was well tolerated STRESS TEST MYOVIEW: at [facility],05/01/12, normal rest and pharmalogic stress myocardial perfusion withnormal left ventricle size and systolic function, essentially unchanged from prior study, no evidence of ischemia CARDIAC CATHETERIZATION CATH: 01/02/07 no angiographically visible significant coronary artery disease noted, normal left ventricle systolic function [facility] Not available 09/21/2024 16:57:39 09/27/2024 09/27/2024 Labs completed 09/27/2024 Sodium 139, Potassium 3.9, Chloride 104, Co2 26, BUN 24, Creatinine 0.74, Glucose 86, Calcium 9.5, eGFR 84 Labs completed on 09/17/2024 Magnesium 1.9, eGFR 84, Sodium 138, Potassium 3.8, Chloride 102, Co2 25, BUN 19, Creatinine 0.74, Glucose 95, Calcium 9.3, Bilirubin 0.3, Protein 6.5, Albumin 3.6, Alkphos 121, ALT 18, AST 27, WBC 9.05, hgb 13.9, Platelets 184 Labs completed 07/30/2024 Cholesterol 149, Triglycerides 105, HDL 57, LDL 73, Glucose 83, BUN 17, Creatinine 0.71, eGFR 88, Sodium 140, Potassium 4.4, Chloride 104, Co2 29, Calcium 9.5, Protein 6.7, Albumin 4.1, Bilirubin 0.7, Alk phos 110, AST 17, ALT 19, Magnesium 2.3, WBC 7.3, Hgb 15.4, Hct 46.3, Plt 207 LABS: 01/22/24. Cholesterol 159, HDL 61, triglycerides 87, LDL 81, glucose 82, BUN 21, creatinine 0.61, EGFR 93, sodium 138, potassium 4.1, chloride 105, carbon dioxide 26, calcium 9.1, protein 6.2, albumin 3.6, globulin 2.6, bilirubin 0.6, alkaline phosphate 103, AST 17, ALT 20, WBC 7.0, hemoglobin 14.1, hematocrit 43.3, platelet count 160. EKG performed on 09/21/2024 shows atrial pacing at a rate of 60 beats per minute, low-voltage EKG. Poor R-wave progression, QT corrected is 440 milliseconds nonspecific T-wave abnormality anterior leads, compared to the previous EKG which was last done on 08/12/2024, there was no significant change. ASSESSMENT Preoperative cardiac evaluation prior to right knee arthroplasty scheduled for 09/28/2024 with the Lexiscan Myoview stress test performed on 09/16/2021 which was negative for ischemia and she continues to exercise. She has no cardiac contraindication of the procedure Atrial fibrillation - I48.91 (Primary), paroxysmal since 2003 status post 3 atrial fibrillation ablations with recurrence so as placed on sotalol/verapamil which is controlling her episodes on Xarelto anticoagulation and was placed on sotalol by her EP physician Dr. Lugo, last episode was 09/17/2024 lasting 12 to 14 hours after she forgot to take her sotalol dose. Mildly dilated right ventricle with normal RV systolic function on echocardiogram done on 06/15/2021 Normal coronary arteries - Z03.89, 2007 with a normal Lexiscan Myoview stress test on 04/26/2015 and again on 05/26/2017 and again with a Lexiscan Myoview stress test on 06/18/2021 without ischemia CHF diastolic, now compensated Pure hypercholesterolem ia- E78.00, LDL adequately controlled on rosuvastatin 5 mgs daily, had myalgias on 10 mg of atorvastatin. Pacemaker - Z95.0, Placed in 2007 for syncope due to pauses with generator change on 01/08/2016, [employer] pacemaker Obesity - E66.9 MARIANO on CPAP - G47.33, intolerant to CPAP but now wearing her oral device as well managed by Dr. Kelley Hx of edema - Z87.898, well controlled on Lasix and wearing compression stockings Hx of lower gastrointestinal bleeding - Z87.19, Diverticular bleed in 2009, without recurrence Plan: I recommend a heart healthy diet low in fat, low in cholesterol and low in sodium. She is now compensated. She has no cardiac contraindication to her total knee arthroplasty which was scheduled now for 10/07/[address] [facility] [address] Marsh. I recommend she continue the furosemide 40 mg daily, potassium chloride 10 mEq daily, verapamil SR 240 mg and can take an extra half tablet if she goes into atrial fibrillation., continue her Xarelto 20 mg with her dinner meal each day but stop it 48 hours prior to her surgery and continue magnesium oxide 400 mg daily, rosuvastatin 5 mg daily and sotalol 160 mg p.o. b.i.d. I did also remind him once again to take precautions with starting any new [id number] or prescription medications with her being on sotalol there are many life-threatening drug reaction so I asked her to ask her pharmacy before starting on any new medications [id number] or prescription. I will have her follow up in 3 months' time and get a fasting lipid profile, complete metabolic profile, CBC and a magnesium level prior to her follow-up visit. I asked her to return sooner if she has any cardiac issues or problems. CARDIAC TESTING: ECHOCARDIOGRAM 09/23/2024 which showed moderate to severely dilated left atrium, normal left ventricular cavity size, wall thickness systolic function with an ejection fraction of 50 to 55% diastolic function is indeterminate technically inadequate to evaluate for wall motion abnormalities, mildly dilated right ventricle with an RV diastolic dimension 3.82 cm with mild RV hypokinesis. There was mild tricuspid regurgitation with estimated right ventricular systolic pressure being normal at 31 mm Hg IVC was normal in size collapsed appropriately consistent with a normal right atrial pressure of 3 mm Hg. ECHOCARDIOGRAM 06/15/21.The left atrium is mildly dilated. Left ventricular systolic function is normal.Ejection Fraction = 55-60%.The right ventricle is mildly dilated. RVDd = '4.1 ' cm.The right ventricular systolic function is normal.Normal right heart pressures.There is physiologic tricuspid regurgitation. ECHOCARDIOGRAM 12/01/2018 mildly dilated left atrium, normal left ventricular systolic function with an ejection fraction of 55-60%, pacemaker lead noted in the right atrium and right ventricle. Trace to mild tricuspid regurgitation and estimated right atrial pressure of 0-5 mmHg LEXISCAN MYOVIEW STRESS TEST 06/18/21. No evidence of ischemia of the left ventricle.Small apical fixed defect consistent with apical thinning artifact with normal apical wall motion.Normal left ventricular cavity size, wall motion, and calculated left ventricular systolic ejection fraction of 84%. LEXISCAN MYOVIEW STRESS TEST 01/08/2019 with no significant Lexiscan induced ischemic EKG changes. Study was fairly well tolerated. The Myoview images showed no evidence of ischemia left ventricle, small mild anterior defect noted at rest supine images less pronounced in the rest stress supine image and resolved with prone imaging consistent with breast attenuation artifact, there is normal left ventricular cavity size, wall motion and calculated left ventricular systolic ejection fraction of 74%. STRESS TEST Lexiscan 05/26/2017 no evidence of ischemia or infarction of left ventricle, normal left ventricular cavity size wall motion and calculated LVEF of 66%, no Lexiscan induced ischemic EKG changes, study was well-tolerated CARDIAC CATHETERIZATION CATH: 01/02/07 no angiographically visible significant coronary artery disease noted, normal left ventricle systolic function Not available 09/27/2024 15:48:41 Plan of Treatment Reminders Order Date Submit Date Provider Last Modified By Organization Details Last Modified Time Details Appointments ANY 15 2024 01:00P Melissa Quiros MD Not available Not available Not available ANY 15 2024 08:30A Melissa Quiros MD Not available Not available Not available Lab lipid panel, serum 2024 025 [email or web address] [facility], [address], [address], [place], [address], 09/27/2024 15:49:53 CBC w/ auto diff 2024 025 [email or web address] [facility], [address], [address], [place], [address], 09/27/2024 15:49:53 magnes ium, serum or plasma 2024 025 [email or web address] [facility], [address], [address], [place], [address], 09/27/2024 15:49:52 CMP, serum or plasma 2024 025 [email or web address] [facility], [address], [address], [place], [address], 09/27/2024 15:49:53 BMP, serum or plasma 2024 025 [facility], [address] [place] [address], [address], 10/18/2024 08:35:27 lipid panel, serum 2024 025 [email or web address] [facility], [address], [address], [place], [address], 08/12/2024 10:13:17 CBC 2024 025 [email or web address] [facility], [address], [address], [place], [address], 08/12/2024 10:13:17 CMP, serum or plasma 2024 025 [email or web address] [facility], [address], [address], [place], [address], 08/12/2024 10:13:18 lipid panel, serum 2023 025 NEYDA [facility], [address], [address], [place], [address], 08/02/2024 10:16:30 CBC 2023 025 [email or web address], [address], [address], [place], [address], 08/03/2024 07:30:52 magnes ium, serum or plasma 2023 025 [email or web address], [address], [address], [place], [address], 09/07/2024 07:40:35 CMP, serum or plasma 2023 025 [email or web address], [address], [address], [place], [address], 08/03/2024 07:30:52 Referral None record ed. Procedures pacema ker check (PROC) - [facility] Jose pacema ker check 2023 024 [email or web address] Not available 04/22/2024 07:34:38 Surgeries None record ed. Imaging US, echoca rdiogr am, transt horaci c, comple te, w/ color flow 2024 025 [facility], [address] , [facility] [address], [place], [address], 09/26/2024 16:53:23 electr ocardi ogram 2024 025 [email or web address] In-Office Order, Internal Use Only DO Not Attach Compendium DO Not Attach Compendium, Do Not Delete/merge, [id number] 08/13/2024 09:48:18 electr ocardi ogram 2023 024 [facility] In-Office Order, Internal Use Only DO Not Attach Compendium DO Not Attach Compendium, Do Not Delete/merge, [id number] 01/30/2024 13:41:51 electr ocardi ogram 2023 024 [email or web address] In-Office Order, Internal Use Only DO Not Attach Compendium DO Not Attach Compendium, Do Not Delete/merge, [id number] 01/30/2024 13:41:51 Medication Orders furose mide 40 mg tablet [address] [facility], [address] [facility], [place], [address], 09/21/2024 16:56:06 potass ium chlori de ER 10 mEq tablet ,exten ded releas e 2024 025 [facility], [address] [place], [address], 09/21/2024 16:56:05 Xarelt o 20 mg tablet 2023 024 [facility], [address] [address], [place], [address], 11/02/2024 15:06:07 Patient TargetsNo targets recorded. Patient Instructions Encounter Date Encounter Id Patient Instructions Last Modified By Organization Details Last Modified Time 05/26/2024 [id number] In person office check [email or web address] Not available 07/12/2024 12:40:37 08/12/2024 [id number] A healthy lifestyle: care instructions [facility] Not available 08/12/2024 10:13:17 09/21/2024 [id number] A healthy lifestyle: care instructions Not available 09/21/2024 16:56:01 Reason for Referral None Reported. Results Created Date Observation Date Name Description Value Unit Range Abnormal Flag Note LastModifiedBy Organization Detail LastModifiedTime 01/29/2001/29/2024 elect rocar diogr am No observ ation record ed. NEYDA In-Office Order Internal Use Only DO Not Attach Compendium DO Not Attach Compendium, Do Not Delete/merge, [id number] 01/29/2024 13:22:59 01/29/20 24 01/29/2024 elect rocar diogr am No observ ation record ed. NEYDA In-Office Order Internal Use Only DO Not Attach Compendium DO Not Attach Compendium, Do Not Delete/merge, [id number] 01/29/2024 13:22:59 01/29/20 elect rocar diogr am No observ ation record ed. [email or web address] Not Available 01/28 13:23:00 05/26/20 24 pacem taylor check (PROC ) No observ ation record ed. sluberdama Not Available 05/27 07:46:02 08/13/19 25 08/12/2024 elect rocar diogr am No observ ation record ed. NEYDA In-Office Order Internal Use Only DO Not Attach Compendium DO Not Attach Compendium, Do Not Delete/merge, [id number] 08/12/2024 10:15:53 08/13/19 25 elect rocar diogr am No observ ation record ed. [email or web address] Not Available 08/12 10:15:54 09/22/19 elect rocar diogr am No observ ation record ed. sluberdama Not Available 09/21 17:02:49 09/23/19 25 09/17/2024 elect rocar diogr am No observ ation record ed. BARCODE Not Available 2024 10:03:47 09/23/19 25 09/21/2024 elect rocar diogr am No observ ation record ed. BARCODE In-Office Order Internal Use Only DO Not Attach Compendium DO Not Attach Compendium, Do Not Delete/merge, [id number] 09/22/2024 10:03:48 09/27/19 25 09/23/2024 US, echoc ardio gram, trans thora cic, compl ete, w/ color flow No observ ation record ed. [facility] [address], [place], [address], 09/27/2024 07:55:54 10/21/19 25 pacem taylor monit oring , remot e No observ ation record ed. [email or web address] Not Available 10/20 18:07:45 Result Notes None recorded. Problems Name Problem SNOMED Code Status Onset Date Resolution Date Notes Provider Name and Address Organization Details Recorded Time Hypomagnese beatrice 580943231 Active 2023 Michael Quiros MD Attn: Samm floyd,[address] [facility], [place], [address], [facility] 4 10:58:05 Obesity 662468036 Active 2023 Michael Quiros MD Attn: Samm floyd,[address] [facility], [place], [address], [facility] 4 10:58:06 Sick sinus syndrome 42520128 Active 2023 Michael Quiros MD Attn: Samm floyd,[address] [facility], [place], [address], [place] [facility] 4 10:58:08 Essential hypertensio n 91693770 Active 2023 Michael Quiros MD Attn: Samm g,[address] [facility], [place], [address], [place] [facility] 4 10:58:09 Pure hypercholes terolemia 087635789 Active 2023 Michael Quiros MD Attn: Samm g,[address] [facility], [place], [address], [place] [facility] 4 10:58:11 Medication monitoring Active 2023 Michael Quiros MD Attn: Samm floyd,[address] [facility], [place], [address], [place] [facility] 4 10:58:12 Long-term current use of anticoagula nt 479491229 Active 2023 Michael Quiros MD Attn: Samm floyd,[address] [facility], [place], [address], [place] [facility] 4 10:58:14 Dyspnea on exertion 47977577 Active 2023 Michael Quiros MD Attn: Samm floyd,[address] [facility], [place], [address], [place] [facility] 4 10:58:16 Cardiac pacemaker in situ 100242050 Active 2023 Michael Quiros MD Attn: Samm g,[address] [facility], [place], [address], [place] [facility] 4 10:58:17 Paroxysmal atrial fibrillatio n 809269049 Active 2023 Michael Quiros MD Attn: Samm g,[address] [facility], [place], [address], [place] [facility] 4 10:58:18 Chronic diastolic heart failure 812028282 Active 2024 Michael Quiros MD Attn: Samm floyd,[address] [facility], [place], [address], [place] [facility] 5 16:51:45 Preprocedur al examination done 0636082021921 04 Active 2024 Michael Quiros MD Attn: Samm floyd,[address] [facility], [place], [address], [place] [facility] 5 15:28:49 Problem Notes None recorded. Medical Equipment None Reported. Allergies Allergen ID Allergen Name Allergen Category Reaction Reaction Severity Criticality Documentation Date Start Date Code Code System Note Provider Name and Address Organization Details Recorded Time 828055 vancomyci n medicatio n rash Not available Not available 07/31/2023 57378 RxNorm ELENA Chap[place], [place] - [facility] 4 10:15:50 530008 prednison e medicatio n facial swelling itching rash Not available Not available Not available Not available 07/31/2023 8640 RxNorm ELENA [place], [place] [facility] 4 10:16:21 297336 azithromy abena medicatio n anaphylax is Not available Not available 07/31/2023 33430 RxNorm ELENA [place], [place] [facility] 4 10:16:41 590540 adhesive environme nt,medica tion Not available Not available Not available 07/31/2023 97778 UNK Blist ers ELENA [place], [place] [facility] 4 10:17:55 210053 sodium hypochlor ite environme nt,medica tion itching Not available Not available 07/31/2023 9881 RxNorm ELENA [place], [place] [facility] 4 10:18:38 Medications Name Sig Start Date Stop Date Status Note LastModified by Organization Details LastModified Time sotalol 160 mg tablet TAKE 1 TABLET BY MOUTH 2 TIMES A DAY active Not Available Not Available No t Available amoxicillin 500 mg capsule 07/31 completed Not Available Not Available Not Available furosemide 40 mg tablet Take 1 tablet every day by oral route in the morning. 2024 active Not Available Not Available Not Avai lable potassium chloride ER 10 mEq tablet,exte nded release Take 1 tablet every day by oral route in the morning. 2024 active Not Available Not Available Not Avai lable metronidazo le 500 mg tablet 01/28 completed Not Available Not Available Not Available ciprofloxac in 500 mg tablet 07/31 completed Not Available Not Available Not Available tramadol 50 mg tablet 1 take by mouth every 6 hours as needed active Not Available Not Available No t Available prednisolon e acetate 1 % eye drops,suspe nsion 08/12 completed Not Available Not Available Not Available levothyroxi ne 150 mcg tablet 1 tablet daily active Not Available Not Available No t Available nitroglycer in 0.4 mg sublingual tablet NEEDED FOR CHEST PAIN active Not Available Not Available No t Available verapamil ER (SR) 240 mg tablet,exte nded release Take 1 tablet every day by oral route. active Not Available Not Available No t Available furosemide 20 mg tablet 1 tablet daily 09/27 completed Not Available Not Available Not Available loteprednol etabonate 0.5 % eye drops,suspe nsion 07/31 completed Not Available Not Available Not Available ketoconazol e 2 % topical cream 07/31 completed Not Available Not Available Not Available amoxicillin 875 mg-potassiu m clavulanate 125 mg tablet 01/28 completed Not Available Not Available Not Available azelaic acid 15 % topical gel APPLY EXTERNALL Y TO face PRN active Not Available Not Available No t Available rosuvastati n 5 mg tablet Take 1 tablet daily 2024 active Not Available Not Available Not Avai lable trospium 20 mg tablet Take by oral route. 08/12 completed Not Available Not Available Not Available Tylenol Extra Strength 650mg 2 tablets 2x daily active Not Available Not Available No t Available Zirgan 0.15 % eye gel 08/12 completed Not Available Not Available Not Available Xarelto 20 mg tablet Take 1 tablet every day by oral route. active Not Available Not Available No t Available Eliquis 5 mg tablet 1 tablet 2x daily 01/28 completed Not Available Not Available Not Available Eliquis 2.5 mg tablet 07/31 completed Not Available Not Available Not Available Gemtesa 75 mg tablet take 1 tablet daily active Not Available Not Available No t Available Vitals Date Recorded Body height Body mass index (BMI) Body weight Heart rate Oxygen saturation Oxygen saturation in Arterial blood by Pulse oximetry Systolic blood pressure Diastolic blood pressure Provider Name and Address Organization Details Last Updated DateTime 5 165.1 cm 47.9 kg/m2 388177. 96 g 60 /min 97 % 97 % 122 mm[Hg] 74 mm[Hg] Diane Rodríguez MA [facility] 5 09:20:35 Date Recorded Body height Body mass index (BMI) Body weight Heart rate Oxygen saturation Oxygen saturation in Arterial blood by Pulse oximetry Systolic blood pressure Diastolic blood pressure Provider Name and Address Organization Details Last Updated DateTime 5 165.1 cm 49 kg/m2 872801. 59 g 60 /min 98 % 98 % 122 mm[Hg] 62 mm[Hg] Diane Rodríguez MA [facility] 5 15:56:31 Date Recorded Body height Body mass index (BMI) Body weight Heart rate Oxygen saturation Oxygen saturation in Arterial blood by Pulse oximetry Systolic blood pressure Diastolic blood pressure Provider Name and Address Organization Details Last Updated DateTime 5 165.1 cm 48.6 kg/m2 780401. 97 g 65 /min 96 % 96 % 124 mm[Hg] 66 mm[Hg] Santino Cline MA [facility] 5 14:55:08 Date Recorded Body height Body mass index (BMI) Body weight Heart rate Oxygen saturation Oxygen saturation in Arterial blood by Pulse oximetry Systolic blood pressure Diastolic blood pressure Provider Name and Address Organization Details Last Updated DateTime 4 165.1 cm 46.6 kg/m2 349893. 86 g 60 /min 98 % 98 % 128 mm[Hg] 60 mm[Hg] Chico Moise MA [facility] 4 10:12:28 Social History Question Answer Notes LastModified by Organizat ion Details LastModified Time Tobacco Smoking Status Never Smoker Diane Rodríguez MA null, [place] [facility] 07/31/2023 10:23:24 What Was The Date Of Your Most Recent Tobacco Screening? 09/27/2024 Information not available 09/27/2024 Sex: Female Functional Status Question Answer Note LastModified by Organizat ion Details LastModified Time Do you use any illicit or recreational drugs? No Information not available 09/27/2024 Do you or have you ever used any other forms of tobacco or nicotine? No Information not available 09/27/2024 Mental Status None recorded. Family History Nothing Reported. Medical History No medical history recorded. Gynecological HistoryNo gynecological history recorded. Obstetrics History GPAL:G 0 P 0 0 0 0 Immunizations Vaccine Type Date Status Note Provider Nam e and Address Organization Details Recorded Time COVID-19, mRNA, LNP-S, PF, 100 mcg/0.5mL dose or 50 mcg/0.25mL dose 07/17/2020 completed ELENA [place], [place] [facility] 01/29/2024 10:06:47 COVID-19, mRNA, LNP-S, PF, 100 mcg/0.5mL dose or 50 mcg/0.25mL dose 08/10/2020 ELENA [place], [place] [facility] 01/29/2024 10:06:47 COVID-19, mRNA, LNP-S, PF, 100 mcg/0.5mL dose or 50 mcg/0.25mL dose 06/05/2021 ELENA [place] [facility] 01/29/2024 10:06:47 Tdap 05/02/2022 ELENA [place] [facility] 01/29/2024 10:06:47 Past Encounters Encounter ID Performer Location Encounter Start Date Encounter Closed Date Diagnosis/Indication Diagnosis SNOMED-CT Code Diagnosis ICD10 Code Diagnosis Note [id number] Michael Quiros MD [facility] [place] [facility] [address] [place] [address] 07/31/2023 09:54:58 08/06/2023 12:30:09 Paroxysmal atrial fibrillation 516091223 I48.0 Cardiac pa cemaker in situ 110682505 Z95.0 Dyspnea on exertion 6084 5006 R06.09 Long-term current use of anticoagulant 268928999 Z79.01 Medication monitoring 39 2344154 Z51.81 Pure hypercholesterolemia 201405983 E78.00 Essential hypertension 10956056 I10 Sick sinus syndrome 3608 3008 I49.5 Obesity 465583718 E66.9 Hypomagnesemia 807864937 E83.42 [id number] Michael Quiros MD [facility] [place] [facility] [address] [place] [address] 01/29/2024 09:58:18 01/30/2024 13:41:50 Body mass index 40+ - severely obese 446197391 Z68.42 Morbid obesity 781688354 E66.01 Cardiac pa cemaker in situ 663154763 Z95.0 Dyspnea on exertion 6084 5006 R06.09 Essential hypertension 31859546 I10 Hypomagnesemia 117305602 E83.42 Long-term current use of anticoagulant 886910867 Z79.01 Paroxysmal atrial fibrillation 997491131 I48.0 Pure hypercholesterolemia 186527698 E78.00 Sick sinus syndrome 3608 3008 I49.5 [id number] Michael Quiros MD [facility] [place] [facility] [address] [place] [address] 05/26/2024 13:43:19 07/12/2024 12:42:51 [id number] Michael Quiros MD [facility] [place] [facility] [address] [place] [address] 08/12/2024 09:07:20 08/13/2024 09:48:18 Cardiac pacemaker in situ 782411129 Z95.0 Essential hypertension 18189802 I10 Dyspnea on exertion 6084 5006 R06.09 Paroxysmal atrial fibrillation 562319522 I48.0 Pure hypercholesterolemia 275088938 E78.00 Sick sinus syndrome 3608 3008 I49.5 Long-term current use of anticoagulant 029768558 Z79.01 Morbid obesity 750908294 E66.01 [id number] Michael Quiros MD [facility] [place] [facility] [address] [place] [address] 09/21/2024 15:37:19 09/22/2024 16:50:08 Morbid obesity 615454291 E66.01 Atrial fibrillation 4943 6004 I48.91 Dyspnea on exertion 6084 5006 R06.09 Cardiac pa cemaker in situ 450922425 Z95.0 Essential hypertension 25301155 I10 Long-term current use of anticoagulant 983813969 Z79.01 Paroxysmal atrial fibrillation 498077360 I48.0 Pure hypercholesterolemia 665908110 E78.00 Sick sinus syndrome 3608 3008 I49.5 Chronic di astolic heart failure 884497679 I50.32 [id number] Michael Quiros MD [facility] [place] [facility] [address] [place] [address] 09/27/2024 14:46:33 09/28/2024 17:31:40 Cardiac pacemaker in situ 212793295 Z95.0 Chronic di astolic heart failure 201391145 I50.32 Essential hypertension 41767558 I10 Long-term current use of anticoagulant 439075838 Z79.01 Paroxysmal atrial fibrillation 809945657 I48.0 Pure hypercholesterolemia 874474227 E78.00 Preprocedu ral examination done 0615039771 65275 Z01.818 Hypomagnesemia 575360090 E83.42 Health Concerns Section Related Observation LastModified by Organization Detai ls LastModified Time None Recorded Concern Status LastModified by Organization Details LastModified Time None Recorded Advance Directives Directive None Recorded Payers Encounter Date Sequence Insurance Name Policy Number Policy Schuster Covered Member ID Schuster Member ID Guarantor Name 01/29/2024 1 [place] Haylie Nieves Nirscher [id number] Haylie Nirscher 01/29/2024 2 [facility] (MEDICARE SUPPLEMENT) Haylie Nieves Nirscher [id number] Haylie Nirscher 05/26/2024 1 [place] Haylie Nieves Nirscher [id number] Haylie Nirscher 05/26/2024 2 [employer] (MEDICARE SUPPLEMENT) Haylie Nieves Nirscher [id number] Haylie Nirscher 08/12/2024 2 [employer] (MEDICARE SUPPLEMENT) Haylie Nieves Nirscher [id number] Haylie Nirscher 08/12/2024 [place] [facility] - [facility] Haylie Nieves Nirscher [id number] Haylie Nirscher 09/21/2024 2 [employer] (MEDICARE SUPPLEMENT) Haylie Nieves Nirscher [id number] Haylie Nirscher 09/21/2024 1 [place] Haylie Nieves Nirscher [id number] 7 Haylie Nirscher 09/27/2024 2 [employer] (MEDICARE SUPPLEMENT) Haylie Nieves Nirscher [id number] Haylie Nirscher 09/27/2024 1 [place] Haylie Nieves Nirscher [id number] 7 Haylie Nirscher Notes Date Note Type Note Provider Name and Address Organization Details Recorded Time 01/29/2024 text/html Haylie is a 73-year-old female who returns for follow-up visit. She is doing Silver sneakers with chair exercises 3 days a week for about 30 minutes and does use the NuStep for 10 to 30 minutes with no chest pain or shortness of breath. She does also incorporate walking 10 minutes on track and does use her walker when she does this she can get some shortness of breath but no chest pain or pressure which is unchanged in pattern. She denies any falls and has not fallen since March 2023 when she broke her left ankle. She is still intolerant to the CPAP and using a mouthpiece when she sleeps for sleep apnea is managed by her sleep medicine physician Dr. Rico. She admits she does indulge in ice cream and her weight is up 5 pounds she was here last about 6 months ago however she still down 35 pounds over the last 21 months. She denies any significant bleeding on Eliquis continues to bruise fairly easily. She denies any stroke symptoms. She does complain of the cost of Eliquis. Is not having much swelling in her legs or leg on the furosemide 20 mg daily and has not required compression stockings. She is compliant with her medications. She denies any side effects from her medications. She denies any chest pain, paroxysmal nocturnal dyspnea, orthopnea, presyncope or syncope. Michael Quiros MD Attn: [employer] , [place], [address], [place] [facility] 01/29/2024 11:15:49 08/12/2024 text/html Haylie is a 74-year-old female who returns for follow-up visit. At the time of her last visit due to the cost of the Eliquis so he switched to Xarelto 20 mg with dinner meal each day who the fairly qualified 340 B program which reduced her cause significantly. She is not having any significant bleeding on Eliquis. She denies any falls or any neurologic symptoms. 2.4 years of battery life she had a pacemaker check on 05/26/2024 which showed 5% atrial pacing 36% ventricular pacing, 7 episodes of atrial fibrillation, 2.4 years of battery life. Normal device and lead parameters. She is scheduled to get a right total knee arthroplasty on September 28 at [facility] with Dr. Marsh. She is doing Silver sneakers with chair exercises 3 days a week for about 30 minutes and does use the NuStep for 10 to 30 minutes and also does a peddling device at home on a daily basis with no chest pain or shortness of breath. She does continue to walk with a walker. She has not had any falls. She has no significant bleeding with the Xarelto. He denies any neurologic complaints. She is still intolerant to the CPAP but is using a mouthpiece when she sleeps as managed by sleep medicine physician Dr. Rico. She did join [employer] about 3 weeks ago but her weight is up 8 lb since he was last here about 6 months ago but tells me she has lost 4 or 5 lb since she started [employer] about 3 months ago. Her weight is still down 27 lb over the last 27 months. She has not had any significant swelling and remains on furosemide 20 mg daily. She has not required the compression stockings as she has not had any significant edema. She is compliant with her medications. She denies any side effects from her medications. She denies any chest pain, shortness breath, paroxysmal nocturnal dyspnea, orthopnea, presyncope or syncope. Michael Quiros MD Attn: Account[employer],[address] , [place], [address], [place] [facility] 08/12/2024 10:14:42 09/21/2024 text/html Haylie is a 74-year-old female who returns for follow-up visit. He presented to [facility] on FridaySeptember 17 in atrial fibrillation after she had forgotten to take her sotalol that evening as she fell asleep before taking it. She remained in atrial fibrillation for about 12 to 14 hours. When she was in the ER it was 104 beats per minute when she was in atrial fibrillation. She did take her verapamil an extra dose and it seemed to convert her within a few hours and the repeat EKG at 4:21 p.m. on September 17 showed that she was in sinus rhythm with ventricular pacing at a rate of 73 beats per minute shortly after taking the verapamil. Her troponins x2 were normal at 13 and 10. She has been noticing she has been more short of breath and having some swelling her lower extremities for the past week. Her weight is up 6 lb since last visit about 5 weeks ago. She remains on furosemide 20 mg daily. she remains on [employer] and she is following but despite this her weight is up. She is scheduled for a right total knee arthroplasty on September [address] [facility] [address] Marsh. And she still does work out with [employer]. She continues to exercise doing some chair exercises 3 days a week for about 30 minutes and does use the NuStep for 10 to 30 minutes and also does a peddling device at home on a daily basis with no chest pain or shortness of breath. She does continue to walk with a walker due to her orthopedic issues. She has not had any falls. She has no significant bleeding with the Xarelto. She denies any neurologic complaints. She is still intolerant to the CPAP but is using a mouthpiece when she sleeps as managed by sleep medicine physician Dr. Rico. She is compliant with her medications. She denies any side effects from her medications. She denies any chest pain, shortness breath, paroxysmal nocturnal dyspnea, orthopnea, presyncope or syncope. ELENA Chapin, [place] [facility] 09/21/2024 17:25:16 09/27/2024 text/html Haylie is a 74-year-old female who returns for follow-up visit. She had seen me on 09/21/2024 after having a bout of atrial fibrillation lasting about 12 to 14 hours after she forgot to take a dose of her sotalol. This resulted in some volume overload and she was scheduled undergo a total knee arthroplasty with Dr. Marsh on 09/28/2024. Although her surgery has been delayed until 10/07/2024 I wanted to be sure she was compensated after increasing her Lasix from 20 mg to 40 mg daily at the time of her last visit and adding 10 mEq of potassium chloride. Since her last visit she has dropped 2.4 lb. And tells me her swelling has improved. She tells me her breathing is much better and she is no longer short of breath. She had an echocardiogram done on 09/23/2024 which showed moderate to severely dilated left atrium, normal left ventricular cavity size, wall thickness systolic function with an ejection fraction of 50 to 55% diastolic function is indeterminate technically inadequate to evaluate for wall motion abnormalities, mildly dilated right ventricle with an RV diastolic dimension 3.82 cm with mild RV hypokinesis. There was mild tricuspid regurgitation with estimated right ventricular systolic pressure being normal at 31 mm Hg IVC was normal in size collapsed appropriately consistent with a normal right atrial pressure of 3 mm Hg. She continues to exercise doing some chair exercises 3 days a week for about 30 minutes and does use the NuStep for 10 to 30 minutes and also does a peddling device at home on a daily basis with no chest pain or shortness of breath. She does continue to walk with a walker due to her orthopedic issues. She has not had any falls. She has no significant bleeding with the Xarelto. She denies any neurologic complaints. She is using a mouthpiece for her sleep apnea on occasion as managed by her sleep medicine physician Dr. Rico. She is compliant with her medications. She denies any side effects from her medications. She denies any chest pain, shortness breath, paroxysmal nocturnal dyspnea, orthopnea, presyncope or syncope. Michael Quiros MD Attn: [employer] [place], [id number], [facility] 09/27/2024 15:50:39 OBGyn Episode No OBEpisode recorded.
--- OUTSIDE RECORDS SUMMARY | 2024-11-03 14:47 | XMS_ITS | Referral Summary ---
Author Organization [facility] Address [address] [place] [address] Care Team Providers Care Engine Turner Name Role Phone Harry Jorgensen MD Primary Care Provider + Michael Quiros MD Unavailable [phone] Mohan Rico MD Unavailable [phone] Betty Calvin Unavailable [phone] Sybil Alex [facility] Unavailable Unavailable Encounters Date Type Department Care Team Description 11/03/2024 Telephone [facility] Medical Group Orthopedics and Sports Medicine [address] [place] [address] [place] [phone] Betty Calvin PA 11/03/2024 Orders Only [facility] Orthopedics and Sports Medicine [address] [place] [address] [place] [phone] Betty Calvin PA Postoperative wound dehiscence, initial encounter (Primary Dx) 11/03/2024 10:30 AM CDT Office Visit [facility] Orthopedics and Sports Medicine [address] [place] [address] [place] [phone] Betty Calvin PA Postoperative wound dehiscence, subsequent encounter (Primary Dx) 10/29/2024 Plan of Care Documentation [facility] Home Infusion Therapy [address] [place] [address] 10/29/2024 Home Infusion [facility] Home Infusion Therapy [address] [place] [address] Sybil Alex, [facility] Open knee wound, right, subsequent encounter (Primary Dx) 10/21/2024 12:10 PM CDT - 10/29/2024 2:40 PM CDT Hospital Encounter [place] [address] [address] [place] [address] Adelfo Marsh MD Chowdhury, Farhanaz, MD Wound dehiscence (Primary Dx); Infected open wound; S/P total knee arthroplasty, right; Postoperative wound infection; Hyponatremia; Hypocalcemia; Hypotension due to drugs; Essential (primary) hypertension; Chronic atrial fibrillation (HCC); Macrocytic anemia; Asymptomatic COVID-19 virus infection; History of pacemaker; Primary osteoarthritis of right knee; Aftercare following right knee joint replacement surgery; Open wound of right knee, subsequent encounter Discharge Disposition: Discharge to home, home health skilled care 10/21/2024 NH/SNF Visit [facility] Post Acute [facility] [address] [place] [phone] Elva Hodge NP Aftercare following right knee joint replacement surgery (Primary Dx); Wound dehiscence; COVID-19 10/21/2024 Telephone [facility] Orthopedics and Sports Medicine [address] [phone] Adelfo Marsh MD 10/21/2024 Orders Only [facility] Hospital[facility] [address] [place] [address] Elva Hodge NP 10/21/2024 1:30 PM CDT - 10/21/2024 3:35 PM CDT Surgery [facility] OR [address] [place] [address] Adelfo Marsh MD INCISION AND DRAINAGE RIGHT KNEE 10/21/2024 1:50 PM CDT Anesthesia Event [facility] [place] [address] Amelie Delgado MD Taylor-White, Carlotta A., NP 10/20/2024 2:15 PM CDT - 10/20/2024 11:59 PM CDT Hospital Encounter [facility] Imaging [address] [place] [address] S/P total knee arthroplasty, right Discharge Disposition: Discharge to home or self care 10/20/2024 2:45 PM CDT Office Visit [facility] Orthopedics and Sports Medicine [address] [place] [address] [address] [place] [address] Adelfo Marsh MD S/P total knee arthroplasty, right (Primary Dx); Postoperative wound dehiscence, initial encounter 10/19/2024 Orders Only [facility] Orthopedics and Sports Medicine [address] [place] [address] [address] [place] [phone] Betty Calvin PA Right knee pain, unspecified chronicity (Primary Dx) 10/18/2024 Orders Only [facility] [phone] Unknown, Notinfile 10/18/2024 NH/SNF Visit [facility] Post Acute Care [address] [phone] Elva Hodge NP Aftercare following right knee joint replacement surgery (Primary Dx); Chronic combined systolic and diastolic congestive heart failure (HCC); Paroxysmal atrial fibrillation (HCC); Essential hypertension 10/15/2024 Telephone [facility] Orthopedics and Sports Medicine [address] [place] [address] [address] [place] [address] Adelfo Marsh MD incision 10/15/2024 NH/SNF Visit [facility] Post Acute Care [address] [phone] Abisai Stover MD Aftercare following right knee joint replacement surgery (Primary Dx); Paroxysmal atrial fibrillation (HCC) 10/15/2024 Results Follow-Up [facility] Post Acute Care [address] [phone] Abisai Stover MD CBC without differential, Comprehensive metabolic panel, eGFR 10/15/2024 Orders Only [facility] Medical [facility] Hospitalists [address] [place] [phone] Abisai Stover MD 10/14/2024 NH/SNF Visit [facility] Post Acute Care [address] [phone] Abisai Stover MD Aftercare following right knee joint replacement surgery (Primary Dx); Essential hypertension; Chronic combined systolic and diastolic congestive heart failure (HCC); Paroxysmal atrial fibrillation (HCC) 10/13/2024 Orders Only [facility] Orthopedics and Sports Medicine [address] [phone] Betty Calvin PA S/P total knee arthroplasty, right (Primary Dx) 10/13/2024 NH/SNF Visit [facility] Post Acute Care [address] [phone] Abisai Stover MD Arthralgia, unspecified joint (Primary Dx); Aftercare following right knee joint replacement surgery; Paroxysmal atrial fibrillation (HCC) 10/13/2024 12:13 AM CDT - 10/13/2024 3:05 AM CDT Emergency [address] [address] Valerie Kendall MD Postoperative pain (Primary Dx); Arthralgia, unspecified joint; Alteration in skin integrity related to surgical incision Discharge Disposition: Discharge to home or self care 10/12/2024 Orders Only [facility] Post Acute Care of [address] [phone] Trupti Hicks PA Arthralgia, unspecified joint 10/12/2024 NH/SNF Visit [facility] Post Acute Care [address] [phone] Abisai Stover MD Arthralgia, unspecified joint (Primary Dx); Aftercare following right knee joint replacement surgery; Paroxysmal atrial fibrillation (HCC); Hyperlipidemia, unspecified hyperlipidemia type 10/07/2024 5:19 AM CDT - 10/11/2024 11:53 AM CDT Hospital Encounter [address] [address] Adelfo Marsh MD Primary osteoarthritis of right knee (Primary Dx); Aftercare following right knee joint replacement surgery Discharge Disposition: Discharge to [facility] 10/07/2024 9:40 AM CDT Ancillary Procedure [facility] [place] [address] [place] [address] 10/07/2024 9:35 AM CDT Ancillary Procedure [facility] [place] [address] [place] [address] 10/07/2024 7:30 AM CDT - 10/07/2024 9:50 AM CDT Surgery [facility] [place] [address] [place] [address] Adelfo Marsh MD RIGHT TOTAL KNEE ARTHROPLASTY 10/07/2024 7:26 AM CDT Anesthesia Event [facility] [place] [address] [place] [address] Truman Noble MD Taylor-White, Carlotta A., NP 10/05/2024 Documentation [facility] Orthopedics and Sports Medicine [address] [place] [phone] Mary Minor MA 09/27/2024 7:40 AM CDT Lab [facility] [address] [place] [address] 09/17/2024 1:42 PM CDT - 09/17/2024 5:00 PM CDT Emergency [address] [address] Flakita Valverde MD Atrial fibrillation with RVR (HCC) (Primary Dx) Discharge Disposition: Discharge to home or self care 09/17/[address] [facility] PreAdmission Testing [address] [place] [address] Amelie Gonzales, EKATERINA Shortness of breath (Primary Dx) 09/17/2024 9:30 AM CDT Pre-Admission Testing [facility] PreAdmission Testing [address] [place] [address] Preop examination (Primary Dx); Primary osteoarthritis of right knee; Preop testing; Shortness of breath 09/16/[address] [address] Joseline Grant RN 09/14/20[address] [facility] OP Physical Therapy [address] [place] [address] 09/14/2024 10:[address] [facility] OP Physical Therapy [address] [place] [address] Isabella Gamboa, PT Primary osteoarthritis of right knee (Primary Dx) 09/14/2024 1:15 PM CDT Office Visit [facility] Medical Group Pulmonary [address] [phone] Lindsay Lopez NP Obstructive sleep apnea (adult) (pediatric) (Primary Dx) 09/13/[address] [facility] PreAdmission Testing [address] [place] [address] May Pappas, EKATERINA from Last 3 Months Allergies Active Allergy Reactions Criticality Noted Date Comments Adhesive Other (See comments) Low 10/06/2023 Tolerates band-aids and Tegaderm. Atorvastatin Other (See comments) Low 10/29/2018 myalgias on 10 mgs daily, Joint pain Atorvastatin Calcium Other (See comments) Low 10/29/2018 myalgias on 10 mgs daily Azithromycin Anaphylaxis,Other (See comments),Unknown High 10/29/2018 causes afib Bleach (Sodium Hypochlorite) Flushing (skin) Low 04/16/2022 Morphine Other (See comments) High 03/04/2022 Reaction: Hallucinations Prednisone Anaphylaxis,Itchin g,Swelling,Rash High 10/29/2018 SWELLING,ITCHING Silver Rash,Other (See comments),Blisters High 01/04/2020 Other reaction(s): Blisters, Contact Dermatitis; FROM WOUND VAC Sodium Hypochlorite Itching Low 10/06/2023 Vancomycin Other (See comments),Swelling ,Rash High 03/04/2022 Reaction: Rash, , , Reaction: Swelling, Other reaction(s): Skin Reactions Reaction: Rash, , , Reaction: Swelling, Reaction: Rash, , , Reaction: Swelling, Medications magnesium oxide (MAG-OX) 400 mg (241.3 mg elemental magnesium) tablet Take 1 tablet (400 mg total) by mouth daily Active cholecalciferol (VITAMIN D-3) 5,000 unit tablet Take 1 tablet (5,000 Units total) by mouth 2 (two) times a day Active nitroglycerin (NITROSTAT) 0.[address] 1 tablet (0.4 mg total) under the tongue every 5 (five) minutes as needed for chest pain 25 tablet 1 021 Active ascorbic acid (VITAMIN C) 1,000 mg tablet Take 1 tablet (1,000 mg total) by mouth 2 (two) times a day Active verapamiL (CALAN) 120 mg tablet Take 1 tablet (120 mg total) by mouth daily as needed (for AFib rhythm) Active levothyroxine (SYNTHROID) 150 mcg tablet Take 1 tablet (150 mcg total) by mouth rn radiation oncology before breakfast Active sotaloL (BETAPACE) 160 mg tabletIndicatio ns:Paroxysmal atrial fibrillation (HCC) TAKE 1 TABLET BY MOUTH 2 TIMES A DAY 180 tablet 1 023 Active coenzyme Q10 300 mg capsule Take 1 capsule (300 mg total) by mouth daily Active Lactobacillus acidophilus 10 billion cell capsule Take 1 capsule by mouth daily Active verapamil SR (CALAN SR) 240 mg CR tabletIndicatio ns:Paroxysmal atrial fibrillation (HCC),PAF (paroxysmal atrial fibrillation) (HCC) TAKE 1 TABLET BY MOUTH EVERY DAY 90 tablet 2 023 Active rosuvastatin (CRESTOR) 5 mg tablet TAKE 1 TABLET BY MOUTH EVERY DAY 90 tablet 3 023 Active calcium amino acid chelate 200 mg calcium tablet Take by mouth Active trospium (SANCTURA) 20 mg tablet Take 1 tablet (20 mg total) by mouth 2 (two) times a day Active UNABLE TO FIND - ENTER DRUG NAME IN NOTES TO PHARMACY Take 1 each by mouth daily Med Name: Calcium 500 mg Active furosemide (LASIX) 40 mg tablet Take 1 tablet (40 mg total) by mouth daily Active ACETAMINOPHEN EXTRA STRENGTH ORAL Take 2 tablets by mouth 2 (two) times a day Active potassium chloride ER 10 mEq CR tablet Take 1 tablet/capsule (10 mEq total) by mouth daily Active Xarelto 20 mg tablet Take 1 tablet (20 mg total) by mouth nightly Active traMADoL (ULTRAM) 50 mg tabletIndicatio ns:Aftercare following right knee joint replacement surgery Take 1 tablet (50 mg total) by mouth every 6 (six) hours as needed for pain 30 tablet 025 2024 Active DAPTOmycin (CUBICIN) 50 mg/mL injectionIndica tions:Bone/Join t Infection Infuse 17 mL (850 mg total) IV daily for 2 minutes for 11 days at 510 mL/hr 187 mL 2024 Active ampicillin (PRINCIPEN) 500 mg capsuleIndicati ons:Skin/Soft Tissue Infection Take 1 capsule (500 mg total) by mouth 4 (four) times a day for 11 days 44 capsule 025 2024 Active loperamide (IMODIUM) 2 mg capsule Take 1 capsule (2 mg total) by mouth 4 (four) times a day as needed for diarrhea 30 capsule Active rivaroxaban (XARELTO) 10 mg tabletIndicatio ns:VTE Prophylaxis Take 1 tablet (10 mg total) by mouth nightly 30 tablet 025 2024 Active DAPTOmycin 850 mg in sodium chloride 0.9% 17 mL IV SyringeIndicati ons:Open knee wound, right, subsequent encounter Give 17 mL (850 mg) by slow IV push every 24 hours over 2 minutes. Remove dose from refrigerator 1-2 hours prior to use. 187 mL 025 2024 Active sodium chloride 0.9% flush syringeIndicati ons:Open knee wound, right, subsequent encounter Infuse 10 mL IV as needed for line care 55688 mL 025 2025 Active heparin 10 unit/mL syringe flush syringeIndicati ons:Open knee wound, right, subsequent encounter Infuse 5 mL (50 Units total) IV as needed (line care) 95930 mL 025 2025 Active Gemtesa 75 mg tablet Take 75 mg by mouth daily 023 2024 Discontinued(S top Taking at Discharge) cranberry extract 500 mg capsule Take 500 mg by mouth 2 (two) times a day 2024 Discontinued red yeast rice 600 mg capsule Take 600 mg by mouth 2 (two) times a day 2024 Discontinued furosemide (LASIX) 20 mg tabletIndicatio ns:Paroxysmal atrial fibrillation (HCC),Essential hypertension,Pu re hypercholestero lemia,PAF (paroxysmal atrial fibrillation) (HCC) TAKE 1 TABLET BY MOUTH EVERY DAY 90 tablet 2 024 2024 Discontinued(S top Taking at Discharge) traMADoL (ULTRAM) 50 mg tabletIndicatio ns:Closed bimalleolar fracture of left ankle with routine healing,History of ankle surgery Take 1 tablet (50 mg total) by mouth every 6 (six) hours as needed for pain 20 tablet 024 2024 Discontinued(S top Taking at Discharge) azelaic acid 15 % gel Apply 1 Application topically 2 (two) times a day as needed (ROSACEA) After skin is thoroughly washed and patted dry, gently but thoroughly massage a thin film of azelaic acid cream into the affected area twice daily, in the morning and evening. 2024 Discontinued biotin 10,000 mcg capsule Take 1 capsule (10,000 mcg total) by mouth daily 2024 Discontinued HYDROcodone-norris taminophen (NORCO) 5-325 mg per tabletIndicatio ns:Pain Take 1-2 tablets by mouth every 4 (four) hours as needed for pain 40 tablet 025 2024 Discontinued(R eorder) HYDROcodone-norris taminophen (NORCO) 5-325 mg per tabletIndicatio ns:Pain Take 1 tablet by mouth every 4 (four) hours as needed for pain 60 tablet 025 2024 Discontinued(R eorder) HYDROcodone-norris taminophen (NORCO) 5-325 mg per tabletIndicatio ns:Pain Take 2 tablets by mouth every 4 (four) hours as needed for pain 60 tablet 025 2024 Discontinued rivaroxaban (XARELTO) 10 mg tablet Take 1 tablet (10 mg total) by mouth daily for 5 days 5 tablet 025 2024 Discontinued HYDROcodone-norris taminophen (NORCO) 5-325 mg per tabletIndicatio ns:Pain Take 2 tablets by mouth every 4 (four) hours for 3 days Okay to hold medication if patient's pain is well controlled 36 tablet 025 2024 Discontinued(A lternate therapy) HYDROcodone-norris taminophen (NORCO) 10-325 mg per tabletIndicatio ns:Pain Take 1 tablet by mouth every 4 (four) hours 60 tablet 025 2024 Discontinued(A lternate therapy) traMADoL (ULTRAM) 50 mg tabletIndicatio ns:Aftercare following right knee joint replacement surgery Take 1 tablet (50 mg total) by mouth every 6 (six) hours as needed for pain 30 tablet 025 2024 Discontinued Active Problems Problem Noted Date Diagnosed Date Hyponatremia 10/24/2024 Hypocalcemia 10/24/2024 Hypotension due to drugs 10/24/2024 Chronic atrial fibrillation 10/24/2024 Asymptomatic COVID-19 virus infection 10/21/2024 Assessment & Plan (10/21/2024 10:03 AM CDT): Tested + 10/20, congestion/sniffling sx. Postoperative wound infection 10/21/2024 S/P total knee arthroplasty, right 10/21/2024 Wound dehiscence 10/20/2024 Aftercare following right knee joint replacement surgery 10/08/2024 Assessment & Plan (10/18/2024 1:04 PM CDT): S/p R TKA per Dr. Marsh. Concerns for infection with appearance, increased drainage. Started on Kelfex. Have visualized wound today with wound RN. Images uploaded & Ortho notified. Continue Keflex to completion. PT/OT. Wound care. Xarelto for DVT proph. Pain controlled with shawn Tyl & Tramadol. Not requiring norco. Wound cx was obtained & sent today by Wound RN per . Ortho fu 10/20. Assessment & Plan (10/16/2024 2:02 PM CDT): I was called to see the patient because she was concerned about the appearance of her surgical wound. I have visualized the anterior right knee. The wound is intact. At the most distal aspect of the wound there is a slight amount of serosanguineous drainage that blots the dressing. No evidence of pus, unexpected swelling. The entire anterior knee has a bruised appearance as would be expected with extravasation of blood subcutaneous tissue available in the [employer] EMR. We shared this image with LARRY Calvin. She advised and we ordered cephalexin 500 mg p.o. t.i.d. for 5 days with the expectation that there will be a follow up imaging in Friday that in turn can be shared with the PA. The patient is so reassured. Assessment & Plan (10/16/2024 1:57 PM CDT): At her request I have discontinued the Kerhon[place]on and ordered tramadol 50 mg every 6 hours scheduled. Assessment & Plan (10/16/2024 1:54 PM CDT): This is subacute. Last night she asked to be transferred to the emergency room for evaluation of her wound. This was done and she was returned. At the direction of the emergency room her Xarelto (4 AFib) was reduced from 20 mg daily to 10 mg daily for 5 days with the understanding that after the 5 day interval it would be renewed at 20 mg daily. We will continue the scripting of the Kerhon[place]on. Assessment & Plan (10/13/2024 6:07 PM CDT): This is subacute but stable and her surgeon is Dr. Marsh. We will continue her [place]on every 4 hours prn Primary osteoarthritis of right knee 07/20/2024 Chronic maxillary sinusitis 05/31/2024 Sensorineural hearing loss (SNHL) of both ears 0 12/01/2023 Dysfunction of both eustachian tubes 12/01/2023 Obesity 07/30/2023 History of ankle surgery 04/23/2023 Longstanding persistent atrial fibrillation 03/11 Combined systolic and diastolic congestive heart failure 04/02/2023 Assessment & Plan (10/18/2024 12:50 PM CDT): Compensated. Continue Lasix. Monitor. Assessment & Plan (10/16/2024 2:03 PM CDT): Continue furosemide Macrocytic anemia 07/22/2022 Assessment & Plan (07/24/2022 1:17 PM MAMMOGRAPHY SUPERVISOR): Patient had positive guaiac test, required no imaging. On Eliquis for AFib. Iron panel done, showed deficiency. Hg from 14>>>9. Will start ferrous sulfate 325 mg daily. Monitor H&H Assessment & Plan (07/22/2022 3:03 PM MAMMOGRAPHY SUPERVISOR): guiac positive, no indication for scope, repeat CBC this week, continue daily iron with GI f/u Unspecified sequelae of cerebral infarction 07/10 History of ankle fusion 06/16/2022 Assessment & Plan (06/16/2022 5:15 PM MAMMOGRAPHY SUPERVISOR): Patient has history of right ankle fusion. Secondarily patient has weakness in right leg and can not bear full pressure on it. Continue PT/OT. Follow-up orthopedic outpatient Congenital hypothyroidism without goiter 022 Muscle weakness (generalized) 05/23/2022 Other lack of coordination 05/23/2022 Personal history of COVID-19 05/23/2022 Primary generalized (osteo)arthritis 05/23/2022 Hyperlipidemia 05/06/2022 Assessment & Plan (10/13/2024 6:08 PM CDT): Continue rosuvastatin 5 mg daily Snoring 04/30/2022 Assessment & Plan (04/30/2022 11:40 AM MAMMOGRAPHY SUPERVISOR): The patient presents with snoring and daytime hypersomnia. I recommended a nocturnal polysomnogram with no split study or MSLT. She is not tolerant of CPAP but is willing to consider an oral appliance. She will follow-up with me in 6-7 weeks after the diagnostic sleep study.. Body mass index (BMI) 50.0-59.9, adult Assessment & Plan (08/19/2022 3:39 PM CDT): Remains morbidly obese, however has had 30 lb weight loss since admission, states she is feeling better and has less pain to knees, continue heart healthy diet with mobility as tolerated Current use of director long term care anticoagulation 022 Pure hypercholesterolemia, unspecified Assessment & Plan (07/24/2022 1:13 PM MAMMOGRAPHY SUPERVISOR): On Crestor 5 mg daily Hypothyroidism 10/11/2021 Assessment & Plan (08/12/2022 1:28 PM MAMMOGRAPHY SUPERVISOR): Stable on Synthroid 150 mcg daily, monitor TSH Assessment & Plan (07/24/2022 1:17 PM MAMMOGRAPHY SUPERVISOR): TSH 3.05. Continue Synthroid 150 mcg daily Assessment & Plan (07/02/2022 2:17 PM MAMMOGRAPHY SUPERVISOR): Continue current Synthroid dose Assessment & Plan (06/16/2022 5:18 PM MAMMOGRAPHY SUPERVISOR): TSH 1.4. Continue Synthroid 150 mcg daily Primary osteoarthritis of both first carpometaca rpal joints 10/11/2020 High risk medication use 08/16/2020 Assessment & Plan (08/16/2020 10:24 AM MAMMOGRAPHY SUPERVISOR): Recent EKG showed QTC okay around 430. Continue 160 b.i.d. 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 Likely secondary to UTI. No fevers now since been started on antibiotic. Will repeat labs next week Encounter for monitoring diuretic therapy 2018 Assessment & Plan (02/09/2020 9:37 AM CDT): Continue Coumadin Assessment & Plan (08/04/2019 9:48 AM MAMMOGRAPHY SUPERVISOR): Continue Coumadin Assessment & Plan (02/03/2019 9:13 AM CDT): Continue Coumadin. Non-rheumatic tricuspid valve insufficiency 12/07 Dyslipidemia 01/28/2017 Overview (10/29/2018): improved with diet, had myalgias on atorvastatin 10 mgs daily, if needed consider low dose crestor but no stat for now Assessment & Plan (06/16/2022 5:18 PM MAMMOGRAPHY SUPERVISOR): Patient currently on Crestor 5 mg daily. Encourage low-fat/carb diet Bilateral primary osteoarthritis of knee 017 Hx of edema 01/24/2016 Overview (10/29/2018): Controlled on Maxzide p.r.n. which is about 2 days a week typically Hx of lower gastrointestinal bleeding 01/24/2016 Overview (10/29/2018): Diverticular bleed in 2008, without recurrence Normal coronary arteries 01/24/2016 Overview (10/29/2018): 2007 with a normal Lexiscan Myoview stress test on 04/26/2015 and again on 05/26/2017 Hay fever 04/12/2013 Cerebrovascular accident (CVA) 03/30/2013 Subjective tinnitus 03/16/2013 Asymmetrical sensorineural hearing loss 03/16/20 13 History of cervical spinal surgery 03/05/2012 Overview (09/13/2016): H/O cervical discectomy Sick sinus syndrome 10/23/2010 Overview (07/07/2023): Description: Sick Sinus Syndrome Description: Sick Sinus Syndrome Last Assessment & Plan: Rate response okay Assessment & Plan (08/16/2020 10:12 AM MAMMOGRAPHY SUPERVISOR): Rate response okay Assessment & Plan (02/09/2020 9:36 AM CDT): Rate response okay Assessment & Plan (02/03/2019 9:12 AM CDT): Pacemaker replaced January 2016. Rate response okay by histograms Paroxysmal atrial fibrillation 08/16/2008 Overview (07/07/2023): Last Assessment & Plan: Currently rate controlled. Continue home med sotalol 160 mg b.i.d., verapamil 240 mg daily, Eliquis 5 mg b.i.d.. Follow-up cardiology, Dr. Damico outpatient Assessment & Plan (10/18/2024 12:52 PM CDT): Rate controlled. Continue Sotalol 160mg BID, Verapamil. Xarleto resumed today. Assessment & Plan (10/16/2024 2:06 PM CDT): We will continue her sotalol 160 mg p.o. b.i.d. and for now we are holding her Xarelto 10 mg. This is 2 time-out anyway on October 18 when she will be resuming 20 mg Xarelto. She was so advised and she accepted the risk of holding the Xarelto for the benefit of oozing in her distal wound. Assessment & Plan (10/16/2024 1:55 PM CDT): The emergency room has suggested decreasing her Xarelto. This is because of oozing from her surgical wound. We will monitor labs, decrease his Xarelto as suggested and with her consent, continue the sotalol 160 mg p.o. b.i.d.. Assessment & Plan (10/15/2024 11:38 AM CDT): This is currently stable. We will continue monitoring serial vital signs for trending. We will continue sotalol 160 mg p.o. b.i.d.. Assessment & Plan (10/13/2024 6:07 PM CDT): This is chronic and currently stable. Continue Xarelto, sotalol 160 mg p.o. b.I.d.. Continue verapamil 240 mg daily Assessment & Plan (08/22/2022 12:46 PM CDT): Rate controlled, cont sotalol, verapamil 120 mg and eliquis, monitor BP daily Assessment & Plan (08/19/2022 3:40 PM CDT): Rate controlled. Continue verapamil 240 mg daily, 120 mg p.r.n., sotalol 160 mg b.i.d., Eliquis. Follow-up cardiology, Dr. Damico Assessment & Plan (08/12/2022 1:28 PM MAMMOGRAPHY SUPERVISOR): Rate controlled on exam, continue sotalol and verapamil, b.i.d. Eliquis Assessment & Plan (08/04/2022 7:50 PM MAMMOGRAPHY SUPERVISOR): Rate controlled, decrease verapamil d/t soft SBP, cont sotalol and eliquis, monitor BP daily Assessment & Plan (07/24/2022 1:13 PM MAMMOGRAPHY SUPERVISOR): Rate controlled. Continue verapamil 240 mg daily, 120 mg p.r.n., sotalol 160 mg b.i.d., Eliquis. Follow-up cardiology, Dr. Damico outpatient Assessment & Plan (07/22/2022 3:00 PM MAMMOGRAPHY SUPERVISOR): Controlled; continue verapamil, sotalol, eliquis. Follows jackie quiros Assessment & Plan (07/09/2022 8:09 PM MAMMOGRAPHY SUPERVISOR): Rate controlled on exam, continue sotalol, verapamil, eliquis Assessment & Plan (06/16/2022 5:16 PM MAMMOGRAPHY SUPERVISOR): Currently rate controlled. Continue home med sotalol 160 mg b.i.d., verapamil 240 mg daily, Eliquis 5 mg b.i.d.. Follow-up cardiology, Dr. Damico outpatient Assessment & Plan (06/13/2022 9:58 AM MAMMOGRAPHY SUPERVISOR): Rate controlled on exam, continue sotalol, verapamil, Eliquis, follows with Cardiology stefani Assessment & Plan (08/16/2020 10:26 AM MAMMOGRAPHY SUPERVISOR): Ferron remains very low less 1%. Continue sotalol and Coumadin Assessment & Plan (02/09/2020 9:36 AM CDT): No episodes noted. Continue sotalol warfarin. Assessment & Plan (08/04/2019 9:47 AM MAMMOGRAPHY SUPERVISOR): Overall burden remains very low. Symptomatic when it occurs. Happen about 1% of the time. Told her she can take a for rapid male with symptoms. Otherwise continue sotalol Assessment & Plan (02/03/2019 9:13 AM CDT): Overall burden less than 1%. Symptomatic with episodes longest 9 hours. History of pacemaker 08/16/2008 Assessment & Plan (08/16/2020 10:22 AM MAMMOGRAPHY SUPERVISOR): Check today shows normal function. Again rare noise from isometrics noted. 50% a paced 2% V paced excellent lead function. Assessment & Plan (02/09/2020 9:37 AM CDT): Check today shows sinus rhythm. 46% a paced 7% V paced. Occasional noise on each lead. Will total burden remains low. Assessment & Plan (08/04/2019 9:48 AM MAMMOGRAPHY SUPERVISOR): Check today shows normal function. Underlying rhythm sinus. 42% a paced 5% V paced. Lead function excellent. Battery 11 years Assessment & Plan (02/03/2019 9:12 AM CDT): Check today shows normal function. Underlying rhythm sinus. 43% a pace no V pacing excellent lead function. Better life good. Obstructive sleep apnea (adult) (pediatric) 08/07 Assessment & Plan (09/14/2024 2:33 PM CDT): The patient did have severe sleep apnea in the past. The patient was unable to tolerate the CPAP. The patient is currently using an oral appliance but is causing her pain. The patient does have a pacemaker on the right side of her chest due to playing the violin. Currently her BMI is too high for the inspire device. Dr. George's office will be called see if the inspire device can be placed in a different area than the right side of the chest. Assessment & Plan (09/09/2023 9:13 AM CDT): The patient continue oral appliance therapy. Assessment & Plan (06/10/2023 10:51 AM MAMMOGRAPHY SUPERVISOR): Due to continued symptoms, the patient will continue with an oral appliance. I have ordered the patient an in-home nocturnal polysomnogram with an oral appliance in place to evaluate effectiveness. The patient has severe sleep apnea and the hope is the oral appliance has improved the sleep apnea. Patient is aware that her sleep apnea may not be completely corrected with the use of an oral appliance due to the severity of MARIANO. Assessment & Plan (12/23/2022 3:08 PM CDT): The patient has severe MARIANO based on a home sleep test but is intolerant of CPAP. She wants to try the oral appliance and I will give her a referral to see Dr. Alfonso. I did ask her to contact me once she is adapted to the oral appliance and I will order another home sleep test with the oral appliance in place and she will follow-up with me in 3 months. Assessment & Plan (06/16/2022 5:20 PM MAMMOGRAPHY SUPERVISOR): Patient has history of MARIANO, unable to tolerate tongue retaining device. Symptoms currently controlled. Denies any headache, morning over sleepiness. Follows up with Pulmonary, Dr. Rico outpatient Essential (primary) hypertension 08/16/2008 Overview (07/07/2023): Last Assessment & Plan: Blood pressure controlled. Continue same meds Lasix 40 mg, sotalol 160 mg b.i.d., verapamil 240 mg. Monitor blood pressure, adjust meds according Assessment & Plan (10/16/2024 2:03 PM CDT): This remains stable. We will continue the scripting of furosemide, Assessment & Plan (08/22/2022 12:47 PM CDT): BP stable on Lasix and verapamil, continue to monitor daily for BP goal less than 150 over less than 90 Assessment & Plan (08/19/2022 3:39 PM CDT): BP logs reviewed and stable, continue Lasix and verapamil for BP goal less than 150 over less than 90 Assessment & Plan (07/31/2022 6:18 AM MAMMOGRAPHY SUPERVISOR): Blood pressure soft today, vital signs log reviewed, always has controlled blood pressure. Currently on Lasix 60 mg for 5 days verapamil. Monitor blood pressure, adjust meds accordingly Assessment & Plan (07/24/2022 1:12 PM MAMMOGRAPHY SUPERVISOR): Blood pressure controlled. Continue Lasix 40 mg daily, verapamil. Assessment & Plan (07/05/2022 6:40 PM MAMMOGRAPHY SUPERVISOR): Blood pressure with mild fluctuation, overall remains below 140s. Continue same meds, no change in doses. Assessment & Plan (06/16/2022 5:17 PM MAMMOGRAPHY SUPERVISOR): Blood pressure controlled. Continue same meds Lasix 40 mg, sotalol 160 mg b.i.d., verapamil 240 mg. Monitor blood pressure, adjust meds according Assessment & Plan (02/09/2020 9:40 AM CDT): Repeat blood pressure 125/70. Continue current meds Resolved Problems Problem Noted Date Diagnosed Date Resolved Date Arthritis of right knee 10/07/202410/07 Hypomagnesemia 07/30/2023 10/18/2024 Drug-induced constipation 04/10/2023 Closed bimalleolar fracture of left ankle with routine healing 04/02/2023 10/18/2024 Assessment & Plan (04/23/2023 9:16 AM MAMMOGRAPHY SUPERVISOR): Patient is doing very well overall. Her pain is well controlled with pain medication. No signs of infection of the surgical site. Sutures were removed today in clinic and Steri-Strips applied. Discussed with the patient to continue keeping the surgical sites clean and dry for the next 3 weeks. Signs of infection were reviewed with the patient including purulent drainage, increased erythema or swelling around the surgical site, fever, chills and she will notify us if she develops any of these. She will continue to remain nonweightbearing in her boot and use a knee scooter to get around. She will follow up with Dr. Balderas in 4 weeks for repeat x-rays and evaluation of healing. She expressed understanding and agreement with the plan. Avulsion of skin of right lower leg 07/22/2022 10/18/2024 Assessment & Plan (08/22/2022 12:46 PM CDT): [place], moist, healing, continue daily dressing changes with Santyl and foam pad, follows outpatient [facility] wound clinic Assessment & Plan (08/19/2022 3:38 PM CDT): Continues to improve on serial exams, continue daily dressing changes, clean with wound cleanser, pat dry and apply Santyl to wound bed, phone cover with foam pad. Compression stockings to bilateral lower extremity daily, PT OT as tolerated Assessment & Plan (08/12/2022 1:25 PM MAMMOGRAPHY SUPERVISOR): Wound is healing slowly, has notably decreased in size, remains with right lower extremity edema. Continue daily dressing changes, keep skin clean and dry, elevate right lower extremity while resting. Appreciate wound MD xander tomorrow Assessment & Plan (08/04/2022 7:49 PM MAMMOGRAPHY SUPERVISOR): Complete po linezolid course x 10 days, wound clinic appt 08/09, daily dressing changes clean with wound cleanser, cover with calcium alginate. Cont PT/OT,elevate while resting Assessment & Plan (08/02/2022 11:10 AM MAMMOGRAPHY SUPERVISOR): Continue daily dressing changes clean with wound cleanser, pat dry apply calcium alginate, followed by wound nurse. Await final culture report, no leukocytosis on labs, LE doppler negative. Assessment & Plan (08/01/2022 9:50 AM MAMMOGRAPHY SUPERVISOR): Wound cleansed using wound cleanser and patted dry, 12 sutures removed, patient tolerated well however there is increased drainage and redness to site. Patient questions if she should go to the emergency department as she is concerned that the wound will prevent her from progressing with therapy to her left leg. Discussed treatment plan for wound culture, CBC, BMP, blood cultures. Initiate topical wound care within facility today, will schedule outpatient wound clinic follow-up, patient may continue with therapy. Orders placed for daily dressing changes with Santyl and bordered dressing. Patient is agreeable to this plan of care, notified regarding signs and symptoms of infection and given my phone number to call me if symptoms change. Assessment & Plan (07/31/2022 6:19 AM MAMMOGRAPHY SUPERVISOR): Right leg wound stable with mild-moderate serosanguineous discharge due to increased edema lower extremities. Sutures in place, will remove tomorrow. Continue aggressive wound care, oral antibiotic doxycycline. Assessment & Plan (07/28/2022 8:32 AM MAMMOGRAPHY SUPERVISOR): Sutures are clean and dry, hematoma has decreased in side with dried blood underneath wound, nursing advised to clean with wound cleanser, may apply LANIE to site and cover. Complete p.o. doxycycline Assessment & Plan (07/24/2022 1:02 PM MAMMOGRAPHY SUPERVISOR): Patient to complete doxycycline course till 07/28/2022. Continue aggressive wound care. Suture placed 07/17/2022, will be removed in 2 weeks. Assessment & Plan (07/22/2022 2:59 PM MAMMOGRAPHY SUPERVISOR): Will add p.o. doxycycline due to concern for infection within formed hematoma, monitor skin daily, may clean with wound cleanser and pat dry cover with foam pad, f/u for suture removal Acute on chronic combined sy stolic (congestive) and diastolic (congestive) heart failure 07/19/2022 10/18/2024 Assessment & Plan (07/24/2022 1:12 PM MAMMOGRAPHY SUPERVISOR): ProBNP 6086 had edema. Received IV Lasix. For now will continue Lasix 40 mg daily. Monitor lytes and weight. If creatinine remains precious may consider increasing Lasix dose Unspecified open wound, righ t lower leg, subsequent encounter 07/19/2022 10/18/2024 Acute pyelonephritis 07/17/2022 025 Assessment & Plan (07/31/2022 6:19 AM MAMMOGRAPHY SUPERVISOR): Infection resolved. Renal function stable. Able to void completely. Encourage oral hydration. Assessment & Plan (07/28/2022 8:34 AM MAMMOGRAPHY SUPERVISOR): Resolved , renal function normal, continue to encourage oral hydration, assist with voiding with toileting schedule. Bladder scan q.shift Assessment & Plan (07/24/2022 1:04 PM MAMMOGRAPHY SUPERVISOR): Secondary to UTI, urine culture positive for E coli. Treated inpatient with IV ceftriaxone, IV fluid. Transition later to oral cefuroxime. Patient to continue cefuroxime till 07/26/2022. Encourage oral hydration. Will continue bladder scan Q shift x4 days make sure has no urinary retention Assessment & Plan (07/22/2022 3:05 PM MAMMOGRAPHY SUPERVISOR): Treated with IV ceftriaxone and IVF, renal function normal at DC, continue PO cefuroxime, encourage oral hydration Vomiting and diarrhea 07/09/20222024 Assessment & Plan (07/11/2022 9:27 AM MAMMOGRAPHY SUPERVISOR): Resolved, continue to advance diet as tolerated, encourage oral hydration Assessment & Plan (07/09/2022 7:44 PM MAMMOGRAPHY SUPERVISOR): Give prn zofran now 4mg, ADAT, consider gastroenteritis, no acute abd pain, monitor sx, notify provider for change in condition or VS Acute cystitis without hematuria 06/27/2022 10/18/2024 Assessment & Plan (07/05/2022 6:38 PM MAMMOGRAPHY SUPERVISOR): Patient has completed antibiotic course for UTI. Urinary symptoms improved. Encourage oral hydration. Will order labs, CBC/BMP for 07/08/22. Assessment & Plan (07/02/2022 2:15 PM MAMMOGRAPHY SUPERVISOR): Symptoms improving, complete p.o. doxycycline course, continue to encourage oral hydration, will recheck renal function, p.r.n. Tylenol for pain or fever Assessment & Plan (06/28/2022 11:33 AM MAMMOGRAPHY SUPERVISOR): Continue p.o. doxycycline course until complete, encourage oral hydration, await formal culture and sensitivities, patient appears clinically improved on exam Assessment & Plan (06/27/2022 7:42 PM MAMMOGRAPHY SUPERVISOR): Will treat for UTI based on clinical exam and presentation, give 1gm Rocephin IM Now then start PO doxycycline 100mg BID x 7 days, Place peripheral IV and give NS bolus 500cc, give 650mg tylenol PO now and 4mg Zofran PO now. Cont to encourage oral hydration and assist with toileting. Notify provider for change in condition, hypotension, acute abd or flank pain. Stat CBC, BMP, lactate sent Assessment & Plan (06/27/2022 6:23 PM MAMMOGRAPHY SUPERVISOR): Patient UA suggestive of UTI, urine culture positive for E coli> 100 K. Has been on doxycycline 100 mg b.i.d. x7 days. Based on sensitivity patient on appropriate antibiotic. Encourage oral hydration.. Will continue to monitor Chills (without fever) 06/25/202210/18 Assessment & Plan (06/26/2022 10:07 AM MAMMOGRAPHY SUPERVISOR): No documented fever, however patient lying under blankets, give 650 mg Tylenol p.o. now, will send UA with culture, rapid COVID swab negative. Encourage oral hydration Open wound of right buttock with complication 06/13/1908/22/2022 Assessment & Plan (07/28/2022 8:29 AM MAMMOGRAPHY SUPERVISOR): Healing as expected, continue to apply barrier cream, patient reports improvement since getting up and using toilet rather than bedpan or depends. Followed by wound nurse Assessment & Plan (07/16/2022 9:22 AM MAMMOGRAPHY SUPERVISOR): Continue to improve. Apply barrier Cream b.i.d.. Maintain schedule positioning Assessment & Plan (07/02/2022 2:17 PM MAMMOGRAPHY SUPERVISOR): Healing, apply barrier cream b.i.d., assist with turns and repositioning Assessment & Plan (06/28/2022 11:34 AM MAMMOGRAPHY SUPERVISOR): Continues to improve, may apply barrier cream, assist with mobility and transfers, assist with frequent toileting Assessment & Plan (06/27/2022 6:25 PM MAMMOGRAPHY SUPERVISOR): Wound right buttock improving. Continue wound care. Encourage patient to reposition/turned Assessment & Plan (06/26/2022 10:06 AM MAMMOGRAPHY SUPERVISOR): Healing as expected, appears superficial at this point, continue to keep area clean and dry, may apply barrier cream, reposition/turn q.2 hours Assessment & Plan (06/16/2022 5:10 PM MAMMOGRAPHY SUPERVISOR): Patient has wound to right buttock secondary to bedpan use. Continue Santyl, foam dressing, keep area clean and dry. Patient to be seen by wound doctor today. Patient transferred on Faye, removed today. Assessment & Plan (06/13/2022 10:02 AM MAMMOGRAPHY SUPERVISOR): Unable to visualize today, patient states wound is from removal of bed plunkett, seen by wound nurse at facility and will be seen by wound MD this week, continue treatment order for santal and foam dressing daily, keep area clean and dry, assist with addy Care and toileting, DC Faye Periprosthetic fracture arou nd internal prosthetic left knee joint 06/07/2022 10/18/2024 Assessment & Plan (08/22/2022 12:45 PM CDT): Healing as expected, tolerates PTOT, weight-bearing as tolerated with increasing mobility, goal to return home. Denies pain, ortho follow-up as scheduled Assessment & Plan (08/19/2022 3:40 PM CDT): Ambulatory with assistance, denies pain to left knee, has followed up with Ortho as scheduled, continue therapy Assessment & Plan (08/12/2022 1:26 PM MAMMOGRAPHY SUPERVISOR): Patient has progressed with therapy, she is weight-bearing as tolerated, mobility has increased to/improved, pending discharge home soon. Follow up with Ortho as scheduled. Denies pain Assessment & Plan (08/04/2022 7:49 PM MAMMOGRAPHY SUPERVISOR): Tolerates therapy with weight bearing, denies pain, discusses going home soon where she lives alone, able to walk with walker. Assessment & Plan (08/02/2022 11:11 AM MAMMOGRAPHY SUPERVISOR): Denies pain, ambulatory with therapy, continue PT/OT with goal to return home. Assessment & Plan (07/28/2022 8:30 AM MAMMOGRAPHY SUPERVISOR): Continue PT OT with weight-bearing as tolerated, Tylenol for pain, mobility has improved. Goal to return home, ortho follow-up as scheduled Assessment & Plan (07/24/2022 1:19 PM MAMMOGRAPHY SUPERVISOR): Patient had a mechanical fall at home, sustained left distal fibular fracture around hold knee prosthesis. Initially NWB. Per Dr. Mckinney, based on repeat imaging recommended weight-bearing status to increase 25% weekly. Patient able to walk with walker, 85%weight-bearing. Denies any pain. Cont pain mgx, PT/OT. Assessment & Plan (07/22/2022 3:02 PM MAMMOGRAPHY SUPERVISOR): Mobility improving with 805 weight bewaring, denies pain other than baseline arthritis pain to bilateral knees, continue PT/OT with ortho f/u MD Mckinney Assessment & Plan (07/16/2022 9:23 AM MAMMOGRAPHY SUPERVISOR): Weight-bearing 50% on left leg, has been tolerating. Denies any pain in left leg. Continue PT/OT. Assessment & Plan (07/11/2022 9:28 AM MAMMOGRAPHY SUPERVISOR): Progressing with therapy, remains toe-touch weight-bearing but mobility has improved/increased, continue PT/OT, follow-up MD Mckinney Assessment & Plan (07/09/2022 8:08 PM MAMMOGRAPHY SUPERVISOR): Continues TTWB, tolerating well with slow improvements in condition and mobility, pain is controlled, cont PT/OT with f/u ortho amanda Assessment & Plan (07/05/2022 6:39 PM MAMMOGRAPHY SUPERVISOR): Patient progressing well with therapy, has now 20% weight-bearing LLE. Likely will advanced to 40% by the end of this week. Assessment & Plan (07/02/2022 2:16 PM MAMMOGRAPHY SUPERVISOR): Ortho follow-up complete, 20% weight-bearing to left lower extremity, continue PTOT as tolerated, mobility is limited by right knee pain as well. Continue to assist with transfers, reposition frequently while in bed Assessment & Plan (06/28/2022 11:34 AM MAMMOGRAPHY SUPERVISOR): Denies pain today, patient does have chronic pain to her right knee, await weight-bearing status at follow-up ortho appointment this week, continue PT OT as tolerated Assessment & Plan (06/27/2022 7:42 PM MAMMOGRAPHY SUPERVISOR): Remains non weight bearing but has still been able to participate in therapy, consider waiting today until symptoms improve; pt denies pain to knee has ortho f/u 06/28 Assessment & Plan (06/26/2022 10:07 AM MAMMOGRAPHY SUPERVISOR): Pain is controlled, continues to await ortho follow-up appointment on 06/28, remains nonweightbearing, tolerates PT OT, did get fatigued during therapy today due to fevers chills and nausea Assessment & Plan (06/16/2022 5:08 PM MAMMOGRAPHY SUPERVISOR): Patient had a mechanical fall at home, sustained left distal fibular fracture around hold knee prosthesis. Currently NWB. Will order left knee/fib tib x-ray, results to be faxed to her orthopedic, Dr. Mckinney. Cont pain mgx, PT/OT. Assessment & Plan (06/13/2022 9:57 AM MAMMOGRAPHY SUPERVISOR): Surgical incision is healed, patient denies need for pain control, continue PT/OT with nonweightbearing pending ortho follow-up this week Other abnormalities of gait and mobility 06/07/2022 10/18/2024 Pressure ulcer of left buttock, stage 4 05/29/2022 10/18/2024 Cognitive communication deficit 05/23/2022 10/18/2024 Incomplete atypical femoral fracture, left leg, subsequent encounter for fracture with routine healing 05/23/2022 10/18/2024 Fall 05/03/2022 10/18/2024 Unspecified fracture of left femur, subsequent encounter for closed fracture with routine healing 05/03/2022 10/18/2024 Morbid (severe) obesity due to excess calories 04/16/2022 10/18/2024 Assessment & Plan (08/12/2022 1:26 PM MAMMOGRAPHY SUPERVISOR): Continue to encourage mobility as tolerated, heart healthy diet, 39 lb weight loss since admission therapy stay Lower extremity edema 10/11/20212024 Assessment & Plan (08/22/2022 12:47 PM CDT): Chronic, continue daily compression stockings, elevate legs while resting Assessment & Plan (07/31/2022 6:20 AM MAMMOGRAPHY SUPERVISOR): Currently on Lasix 60 mg for 1 week then to resume 40 mg. Encourage leg elevation when resting in chair, compression wrap. Monitor lytes and weight as patient on diuretic Assessment & Plan (07/28/2022 8:33 AM MAMMOGRAPHY SUPERVISOR): Noted increase in pitting edema to left lower extremity, increase Lasix to 60 mg daily x1 week, then resume 40 mg daily. Continue p.o. potassium supplement, weekly weights, no redness, warmth on exam. Elevate legs while resting, apply compression stocking Assessment & Plan (07/22/2022 3:01 PM MAMMOGRAPHY SUPERVISOR): Fluctuates, improved, morbid obesity with prolonged immobility d/t fracture, contonue lasix 40mg daily, elevate legs while resting and apply compression stockings with daily skin checks Lethargy 10/11/2021 10/18/2024 Assessment & Plan (07/16/2022 9:21 AM MAMMOGRAPHY SUPERVISOR): Patient has been feeling today, lethargic associated with mild nausea, though no fever. Tested for COVID was negative. Zofran 4 mg q.6 p.r.n. ordered, stat CBC/BMP, UA culture. Dyspnea on exertion 04/30/2021 10/19/19 25 Localized edema 01/16/2021 10/18/2024 Chest pressure 12/22/2018 10/18/2024 Pain and swelling of left lower extremity 11/17/2018 10/18/2024 Unilateral primary osteoarthritis, right knee 10/22/1910/18/2024 Assessment & Plan (06/13/2022 9:58 AM MAMMOGRAPHY SUPERVISOR): Pain with weight-bearing, complicated by obesity and body habitus, continue PT OT as tolerated, assist with mobility and transfers using brooks and bariatric equipment, states waiting for new total knee Chest pain 01/24/2016 10/18/2024 Overview (10/29/2018): Atypical, with midsternal tenderness upon palpation which is similar to the pain she's been having in the past, now resolved with a normal Lexiscan Myoview stress test performed on 05/26/2017 Morbid obesity 03/05/2012 10/18/2024 Overview (09/13/2016): Obesity Assessment & Plan (08/16/2020 10:25 AM MAMMOGRAPHY SUPERVISOR): Encouraged dieting weight loss Assessment & Plan (02/09/2020 9:37 AM CDT): Encouraged dieting and weight loss Assessment & Plan (08/04/2019 9:48 AM MAMMOGRAPHY SUPERVISOR): Discussed the merits of intermittent fasting. Counseled her on extending daily fasting periods. Assessment & Plan (02/03/2019 9:18 AM CDT): Patient states she is joining [facility] [employer]. Referred otalgia 01/14/2012 10/18/2024 Immunizations Immunization Administration Dates Next Due Tdap 05/02/2022 Social History Tobacco Use Types Packs/Day Years Used Date Smoking Tobacco: Never Smokeless Tobacco: Never Tobacco Cessation:Counseling Given: Not Answered Alcohol Use Standard Drinks/Week Comments No 0 (1 standard drink = 0.6 oz pur e alcohol) [facility] Utilities Answer Date Recorded In the past 12 months has [employer], gas, oil, or water Dizzion threatened to shut off services in your home? No 10/22/2024 Social Connection and Isolat ion Panel [NHANES] Answer Date Recorded In a typical week, how many times do you talk on the phone with family, friends, or neighbors? More than three times a week 10/22/2024 How often do you get togethe r with friends or relatives? More than three times a week 10/22/2024 How often do you attend chur or alevism services? More than 4 times per year 10/22/2024 Do you belong to any clubs o r organizations such as presybeterian groups, unions, fraternal or athletic groups, or school groups? Yes 10/22/2024 How often do you attend meet ings of the clubs or organizations you belong to? More than 4 times per year 10/22/2024 Are you , , di vorced, , never , or living with a partner? 10/22/2024 AUDIT-C Answer Date Recorded Q1: How often do you have a drink containing alcohol? Never 10/21/2024 Q2: How many drinks containi ng alcohol do you have on a typical day when you are drinking? Patient does not drink Q3: How often do you have si x or more drinks on one occasion? Never 10/21/2024 Overall Financial Resource Strain (CARDIA) Answe r Date Recorded How hard is it for you to pa y for the very basics like food, housing, medical care, and heating? Not hard at all 10/22/2024 Hunger Vital Sign Answer Date Recorded Within the past 12 months, y ou worried that your food would run out before you got the money to buy more. Never true 10/23/19 25 Within the past 12 months, t he food you bought just didn't last and you didn't have money to get more. Never true 10/22/2024 PRAPARE - Transportation Answer Date Re corded In the past 12 months, has l ack of transportation kept you from medical appointments or from getting medications? No 10/07 In the past 12 months, has l ack of transportation kept you from meetings, work, or from getting things needed for daily living? No 10/22/2024 Housing Stability Vital Sign Answer Keith e Recorded In the last 12 months, was t here a time when you were not able to pay the mortgage or rent on time? No 04/03/2023 In the last 12 months, how many places have you lived? 1 04/03/2023 In the last 12 months, was t here a time when you did not have a steady place to sleep or slept in a usp (including now)? No 04/03/2023 Housing Stability Vital Sign Answer Keith e Recorded In the last 12 months, was t here a time when you were not able to pay the mortgage or rent on time? No 10/22/2024 In the past 12 months, how m any times have you moved where you were living? 0 10/22/2024 At any time in the past 12 m [facility], were you homeless or living in a usp (including now)? No 10/22/2024 Personal Safety Answer Date Recorded Have you ever been in or are you currently in a harmful physical or emotional relationship or is someone making you feel afraid or unsafe? 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 Gender Identity Female 01/15/2021 9:27 PM CDT Sexual Orientation Straight 01/15/2021 9: 27 PM CDT Last Filed Vital Signs Vital Sign Reading Time Taken Comments Blood Pressure 124/56 10/29/2024 10:45 AM CDT Pulse 69 10/29/2024 10:45 AM CDT Temperature 36.8 C (98.2 F) 10/29/2024 10:45 AM CDT Respiratory Rate 20 10/29/2024 10:4 5 AM CDT Oxygen Saturation 97% 10/29/2024 10: 45 AM CDT Inhaled Oxygen Concentration - - Weight 137.9 kg (304 lb 0.2 oz) 10/29/2024 2:32 PM CDT Height 165.1 cm (5' 5) 10/29/2024 2:32 PM CDT Body Mass Index 50.59 10/29/2024 2:32 PM CDT Plan of Treatment Not on file Medical Devices Implanted Type Area Junior Project Manager Device Identifier Shelf Expiration Date Model / Serial / Lot Lei Orthopaedics Simplex P Radiopaque Full Dose Cement Bone Sterile 6191-1-010 - [id number] Implanted:Qty: 1 on 10/07/2024 by Adelfo Marsh MD at [facility] Bone Cement Right: Knee [employer] 02/06/2027 6191-1-001 / / [id number] Pacemaker Pacemaker Chest Screw Screw Right: Ankle Synthes 3.5mm 5mm 1.35mm 50mm Cannulated Low Profile Hemispherical Head 205.250 - [id number] Implanted:Qty: 1 on 04/08/2023 by Zaki Balderas DO at [facility] Screw Left: Foot Synthes I 205.250 / / Synthes 3.5mm 5mm 1.35mm 42mm Cannulated Low Profile Hemispherical Head 205.242 - [id number] Implanted:Qty: 1 on 04/08/2023 by Zaki Balderas DO at [facility] Screw Left: Foot Synthes I 205.242 / / Synthes 3.5mm 5mm 1.35mm 34mm Cannulated Low Profile Hemispherical Head 205.234 - [id number] Implanted:Qty: 1 on 04/08/2023 by Zaki Balderas DO at [facility] Screw Synthes I 205.234 / / Vladimir Left: Leg Total Knee Left: Knee [employer]/O rtho Journey Ii 10mm Bicruciate Stabilized Right 5-6 Insert Articular [id number] - [id number] Implanted:Qty: 1 on 10/07/2024 by Adelfo Marsh MD at [facility] Right: Knee [employer]/ Ortho [id number] 12/08/2032 [id number] / / [id number] [employer]/O rtho Component Patellar Kn Resurfacing Domed 3 Peg Journey 29mm Poly [id number] - [id number] Implanted:Qty: 1 on 10/07/2024 by Adelfo Marsh MD at [facility] Right: Knee [employer]/ Ortho [id number] 05/16/2034 [id number] / / [id number] [employer]/O rtho Journey Bicruciate Stabilize Knee Right 6 Baseplate Tibial [id number] - [id number] Implanted:Qty: 1 on 10/07/2024 by Adelfo Marsh MD at [facility] Right: Knee [employer]/ Ortho [id number] 07/20/2034 [id number] / / [id number] [employer]/O rtho Journey Ii 70.5x65.7mm Bicruciate Stabilize Knee Right 6 [id number] - [id number] Implanted:Qty: 1 on 10/07/2024 by Adelfo Marsh MD at [facility] Right: Knee [employer]/ Ortho [id number] 03/13/2034 [id number] / / [id number] Procedures Procedure Name Priority Date/Time Associated Diagnosis Comments EGFR Routine 10/29/2024 4:59 AM CDT CREATINE KINASE (CK), TOTAL Routine 10/29/2024 4:59 AM CDT CBC WITHOUT DIFFERENTIAL Routine 10/29/2024 4:59 AM CDT BASIC METABOLIC PANEL Routine 10/29/2024 4:59 AM CDT XR CHEST 1 VIEW ED Urgent/IP Urgent 10/28/2024 10:00 AM CDT EGFR Routine 10/28/2024 6:47 AM CDT CBC WITHOUT DIFFERENTIAL Routine 10/28/2024 6:47 AM CDT BASIC METABOLIC PANEL Routine 10/28/2024 6:47 AM CDT XR CHEST 1 VIEW ED Urgent/IP Urgent 10/27/2024 4:40 PM CDT EGFR Routine 10/27/2024 7:21 AM CDT DIFFERENTIAL AUTO Routine 10/27/2024 7:2 1 AM CDT CBC WITH AUTO DIFFERENTIAL Routine 10/27/2024 7:21 AM CDT BASIC METABOLIC PANEL Routine 10/27/2024 7:21 AM CDT CREATINE KINASE (CK), TOTAL Routine 10/26/2024 6:09 AM CDT EGFR Routine 10/26/2024 6:09 AM CDT DIFFERENTIAL AUTO Routine 10/26/2024 6:0 9 AM CDT HEMOGLOBIN A1C Routine 10/26/2024 6:09 AM CDT COMPREHENSIVE METABOLIC PANEL Routine 10/26/2024 6:09 AM CDT CBC WITH AUTO DIFFERENTIAL Routine 10/26/2024 6:09 AM CDT THYROID FUNCTION CASCADE Routine 10/25/2024 7:17 AM CDT EGFR Routine 10/25/2024 7:17 AM CDT MAGNESIUM Routine 10/25/2024 7:17 AM CDT CBC WITHOUT DIFFERENTIAL Routine 10/25/2024 7:17 AM CDT BASIC METABOLIC PANEL Routine 10/25/2024 7:17 AM CDT EGFR Routine 10/24/2024 7:38 AM CDT MAGNESIUM Routine 10/24/2024 7:38 AM CDT CBC WITHOUT DIFFERENTIAL Routine 10/24/2024 7:38 AM CDT BASIC METABOLIC PANEL Routine 10/24/2024 7:38 AM CDT BLOOD CULTURE STAT 10/23/2024 3:47 PM CDT BLOOD CULTURE STAT 10/23/2024 3:47 PM CDT EGFR Routine 10/23/2024 8:59 AM CDT CRP (ACUTE PHASE) Routine 10/23/2024 8:5 9 AM CDT CBC WITHOUT DIFFERENTIAL Routine 10/23/2024 8:59 AM CDT BASIC METABOLIC PANEL Routine 10/23/2024 8:59 AM CDT XR CHEST PA LATERAL 2 VIEWS IP Routine 10/22/2024 5:56 PM CDT PRO B-TYPE NATRIURETIC PEPTIDE Routine 10/22/2024 5:40 PM CDT BLOOD CULTURE STAT 10/22/2024 5:40 PM CDT BLOOD CULTURE STAT 10/22/2024 4:16 PM CDT EGFR Routine 10/22/2024 7:45 AM CDT CBC WITHOUT DIFFERENTIAL Routine 10/22/2024 7:45 AM CDT BASIC METABOLIC PANEL Routine 10/22/2024 7:45 AM CDT AEROBIC AND ANAEROBIC CULTURE AND GRAM STAIN Routine 10/21/2024 2:16 PM CDT IN AN PROCEDURE PLACEHOLDER Routine 10/21/2024 2:13 PM CDT IN AN ELECTIVE ENDOTRACHEAL AIRWAY Routine 10/21/2024 2:13 PM CDT INCISION AND DRAINAGE - KNEE 10/21/2024 1:50 PM CDT Wound dehiscence Case Notes I&D R knee w/ wound closure DIFFERENTIAL AUTO Routine 10/21/2024 6:3 7 AM CDT CBC WITH AUTO DIFFERENTIAL Routine 10/21/2024 6:37 AM CDT EGFR Routine 10/21/2024 6:31 AM CDT COMPREHENSIVE METABOLIC PANEL Routine 10/21/2024 6:31 AM CDT XR KNEE RIGHT 3 VIEWS Schedule Routine, Read Routine (OP Routine) 10/20/2024 2:24 PM CDT S/P total knee arthroplasty, right AEROBIC AND ANAEROBIC CULTURE AND GRAM STAIN STAT 10/18/2024 9:30 AM CDT EGFR Routine 10/15/2024 5:41 AM CDT COMPREHENSIVE METABOLIC PANEL Routine 10/15/2024 5:41 AM CDT CBC WITHOUT DIFFERENTIAL Routine 10/15/2024 5:41 AM CDT EGFR STAT 10/13/2024 1:44 AM CDT DIFFERENTIAL AUTO STAT 10/13/2024 1:4 4 AM CDT CRP (ACUTE PHASE) STAT 10/13/2024 1:4 4 AM CDT COMPREHENSIVE METABOLIC PANEL STAT 10/13/2024 1:44 AM CDT CBC WITH AUTO DIFFERENTIAL STAT 10/13/2024 1:44 AM CDT EGFR Routine 10/11/2024 6:24 AM CDT CBC WITHOUT DIFFERENTIAL Routine 10/11/2024 6:24 AM CDT BASIC METABOLIC PANEL Routine 10/11/2024 6:24 AM CDT EGFR Routine 10/10/2024 4:39 AM CDT CBC WITHOUT DIFFERENTIAL Routine 10/10/2024 4:39 AM CDT BASIC METABOLIC PANEL Routine 10/10/2024 4:39 AM CDT EGFR Routine 10/09/2024 6:36 AM CDT CBC WITHOUT DIFFERENTIAL Routine 10/09/2024 6:36 AM CDT BASIC METABOLIC PANEL Routine 10/09/2024 6:36 AM CDT EGFR Routine 10/08/2024 3:25 AM CDT CBC WITHOUT DIFFERENTIAL Routine 10/08/2024 3:25 AM CDT BASIC METABOLIC PANEL Routine 10/08/2024 3:25 AM CDT POCT GLUCOSE DEVICE Routine 10/07/2024 11:30 AM CDT XR KNEE RIGHT 1 OR 2 VIEWS ED Urgent/IP Urgent 10/07/2024 10:16 AM CDT POCUS INJ FEMORAL NERVE IP Routine 10/07/2024 9:31 AM CDT POCUS INJ SCIATIC NERVE IP Routine 10/07/2024 9:31 AM CDT IN AN PROCEDURE PLACEHOLDER Routine 10/07/2024 7:45 AM CDT IN AN ELECTIVE ENDOTRACHEAL AIRWAY Routine 10/07/2024 7:45 AM CDT ARTHROPLASTY TOTAL KNEE 10/07/2024 7:27 AM CDT Primary osteoarthritis of right knee Case Notes RTKA ANTIBODY SCREEN STAT 10/07/2024 6:23 AM CDT ABO/RH STAT 10/07/2024 6:23 AM CDT TYPE AND SCREEN STAT 10/07/2024 6:23 AM CDT EGFR Routine 09/27/2024 7:49 AM CDT BASIC METABOLIC PANEL Routine 09/27/2024 7:49 AM CDT ECG 12-LEAD Routine 09/17/2024 4:21 PM CDT Shortness of breath MAGNESIUM Timed 09/17/2024 12:14 PM CDT TROPONIN T HIGH-SENSITIVITY 2-HOUR Timed 09/17/2024 12:14 PM CDT XR CHEST 1 VIEW ED 09/17/2024 10:40 AM CDT PROTIME-INR Routine 09/17/2024 10:25 AM CDT TROPONIN T HIGH-SENSITIVITY SERIES (BASELINE, 2HR, 4HR, 6HR) STAT 09/17/2024 10:18 AM CDT ECG 12-LEAD STAT 09/17/2024 10:03 AM CDT EGFR Routine 09/17/2024 9:28 AM CDT Primary osteoarthritis of right knee Preop testing DIFFERENTIAL AUTO Routine 09/17/2024 9:2 8 AM CDT Primary osteoarthritis of right knee Preop testing ANTIBODY SCREEN Routine 09/17/2024 9:28 AM CDT Primary osteoarthritis of right knee Preop testing ABO/RH Routine 09/17/2024 9:28 AM CDT Primary osteoarthritis of right knee Preop testing COMPREHENSIVE METABOLIC PANEL Routine 09/17/2024 9:28 AM CDT Primary osteoarthritis of right knee Preop testing CBC WITH AUTO DIFFERENTIAL Routine 09/17/2024 9:28 AM CDT Primary osteoarthritis of right knee Preop testing TYPE AND SCREEN 14 DAY Routine 09/17/2024 9:28 AM CDT Primary osteoarthritis of right knee Preop testing INFECTION PREVENTION MRSA ONLY (STAPHYLOCOCCUS AUREUS) PCR Routine 09/17/2024 9:28 AM CDT Primary osteoarthritis of right knee Preop testing HEPATITIS PANEL, ACUTE Routine 07/18/2022 6:04 AM MAMMOGRAPHY SUPERVISOR SCREENING MAMMOGRAM BILATERAL W [place] Routine 04/29/2018 10:09 AM MAMMOGRAPHY SUPERVISOR from Last 3 Months or Most Recently Relevant to Health Maintenance Results * eGFR (10/29/2024 4:59 AM CDT) eGFR >90 >=60 mL/min/1. 73 m2 Comment: Interpretive Data Reference Interval Normal >/= 90 mL/min/1.73m2 Mildly decreased* 60 - 89 mL/min/1.73m2 Mildly to moderately decreased 45 - 59 mL/min/1.73m2 Moderately to severely decreased 30 - 44 mL/min/1.73m2 Severely decreased 15 - 29 mL/min/1.73m2 Kidney Failure < 15 mL/min/1.73m2 *Relative to young adult level Estimated glomerular filtration rate is determined by the 2020 CKD-EPI equation recommended by the National Kidney Foundation (A Unifying Approach to GFR Estimation: Recommendations of the NKF-ASK Task Force on Reassessing the Inclusion of Race in Diagnosing Kidney Disease, JASN 2020). The CKD-EPI equation should not be used for patients with unstable renal function and has not been validated in children and those over 70. Current interpretive data was last reviewed 2021. Blood 10/29/2024 4:59 AM CDT 10/29/2024 5:08 AM CDT Betty JUAREZ LAB BLOOD ORDERABLES Quynh l Result [facility] [address] [facility] Department [place] [address] * (ABNORMAL) CBC without differential (10/29/2024 4:59 AM CDT) WBC 8.70 3.80 - 9.90 K/cumm Hgb 9.5(L) 11.9 - 15.5 g/dL [facility] Hct 30.5(L) 35.6 - 45.5 % [facility] Plt 229 150 - 400 K/cumm [facility] MPV 8.8(L) 9.1 - 12.3 fL [facility] RBC 3.06(L) 3.90 - 5.20 M/cumm [facility] MCV 99.7(H) 81.3 - 96.4 fL [facility] MCH 31.0 27.1 - 33.3 pg [facility] MCHC 31.1(L) 32.3 - 35.7 g/dL [facility] RDW CV 12.8 11.1 - 14.9 % [facility] RDW SD 45.9 35.7 - 48.1 fL [facility] NRBC abs 0.00 0.00 - 0.01 K/cumm [facility] Blood 10/29/2024 4:59 AM CDT 10/29/2024 5:08 AM CDT Betty JUAREZ LAB BLOOD ORDERABLES Quynh l Result Performing Organization Address City/[facility] Co de Phone Number [address] [place] [employer] [address] * (ABNORMAL) Creatine kinase (CK), total (10/29/2024 4:59 AM CDT) [facility] CK 17(L) 30 - 200 Units/L Blood 10/29/2024 4:59 AM CDT 10/29/2024 5:08 AM CDT Vitaliy Alcazar MD LAB BLOOD ORDERABLES Final R esult Performing Organization Address [facility] Co de Phone Number [address] [place] [address] * Basic metabolic panel (10/29/2024 4:59 AM CDT) [facility] Sodium 136 135 - 145 mmol/L Potassium, pl 4.1 3.3 - 4.9 mmol/L [facility] Chloride 104 97 - 110 mmol/L [facility] CO2 23 22 - 32 mmol/L [facility] Anion gap 9 2 - 15 mmol/L [facility] BUN 9 6 - 25 mg/dL [facility] Creatinine 0.61 0.60 - 1.10 mg/dL [facility] Glucose 104 70 - 199 mg/dL [facility] Comment: Interpretive Data Fasting glucose >/= 126 mg/dl is diagnostic for diabetes. Fasting is defined as no caloric intake for at least 8 hours. Fasting glucose between 100 mg/dl to 125 mg/dl is diagnostic of prediabetes. In a patient with classic symptoms of hyperglycemia or hyperglycemic crisis, a random glucose >/= 200 mg/dl is diagnostic for diabetes. In the absence of unequivocal hyperglycemia, results should be confirmed by repeat testing. The classification and Diagnosis of Diabetes Diabetes Care 202; 46: S19-S40. Current interpretive data was last revised 2022. Calcium 8.8 8.5 - 10.3 mg/dL [facility] Blood 10/29/2024 4:59 AM CDT 10/29/2024 5:08 AM CDT us Betty JUAREZ LAB BLOOD ORDERABLES Quynh l Result [facility] [address] [facility] Department [place] [address] * XR Chest 1 View (10/28/2024 10:00 AM CDT) Anatomical Region Laterality Modality Body, Chest N/A Computed Radiogr aphy 10/28/2024 10:1 3 AM CDT Narrative 10/28/2024 10:15 AM CDT EXAM DESCRIPTION: XR CHEST 1 VIEW REASON FOR STUDY: PICC line placement Picc line replacement x 10/28/24. TECHNIQUE: Single radiographic view(s) of the chest. COMPARISON: 10/27/2024 FINDINGS: The right costophrenic angle is not included in the field of view. LUNGS: There are subtle bibasilar opacities which could reflect atelectasis or pneumonia. There is also prominence of the pulmonary vasculature. There is no sizable pleural effusion or pneumothorax. HEART/MEDIASTINUM: Unchanged. LINES/TUBES: Left upper extremity PICC tip terminates in the region of the SVC. Right subclavian pacing device appears unchanged with leads in the region of the right atrium and right ventricle. BONES: No acute osseous abnormality. IMPRESSION: Left upper extremity PICC tip terminates in the region of the SVC. Subtle bibasilar opacities could reflect atelectasis or pneumonia. Prominence of the pulmonary vasculature. THIS IS AN ELECTRONICALLY VERIFIED FINAL REPORT 10/28/2024 10:15 AM - Electronically signed by Trav Daugherty: 10/28/2024 10:15 AM T: Report ID: [id number] Reading Location: [id number] Procedure Note Trav Mederos MD - 10/28/2024 EXAM DESCRIPTION: XR CHEST 1 VIEW REASON FOR STUDY: PICC line placement Picc line replacement x 10/28/24. TECHNIQUE: Single radiographic view(s) of the chest. COMPARISON: 10/27/2024 FINDINGS: The right costophrenic angle is not included in the field ofview. LUNGS: There are subtle bibasilar opacities which could reflectatelectasis or pneumonia. There is also prominence of the pulmonary vasculature.There is no sizable pleural effusion or pneumothorax. HEART/MEDIASTINUM: Unchanged. LINES/TUBES: Left upper extremity PICC tip terminates in the region ofthe SVC. Right subclavian pacing device appears unchanged with leads in the region of the right atrium and right ventricle. BONES: No acute osseous abnormality. IMPRESSION: Left upper extremity PICC tip terminates in the region of theSVC. Subtle bibasilar opacities could reflect atelectasis or pneumonia. Prominence of the pulmonary vasculature. THIS IS AN ELECTRONICALLY VERIFIED FINAL REPORT 10/28/2024 10:15 AM - Electronically signed by Trav Mederos M.D. AM T: Report ID: [id number] Reading Location: [id number] Adelfo Marsh MD IMG XR PROCEDURES Quynh l Result * eGFR (10/28/2024 6:47 AM CDT) eGFR >90 >=60 mL/min/1. 73 m2 Comment: Interpretive Data Reference Interval Normal >/= 90 mL/min/1.73m2 Mildly decreased* 60 - 89 mL/min/1.73m2 Mildly to moderately decreased 45 - 59 mL/min/1.73m2 Moderately to severely decreased 30 - 44 mL/min/1.73m2 Severely decreased 15 - 29 mL/min/1.73m2 Kidney Failure < 15 mL/min/1.73m2 *Relative to young adult level Estimated glomerular filtration rate is determined by the 2020 CKD-EPI equation recommended by the National Kidney Foundation (A Unifying Approach to GFR Estimation: Recommendations of the NKF-ASK Task Force on Reassessing the Inclusion of Race in Diagnosing Kidney Disease, JASN 202). The CKD-EPI equation should not be used for patients with unstable renal function and has not been validated in children and those over 70. Current interpretive data was last reviewed 2021. Blood 10/28/2024 6:47 AM CDT 10/28/2024 7:51 AM CDT Betty JUAREZ LAB BLOOD ORDERABLES Quynh l Result [facility] [address] [facility] Department [place] [address] * (ABNORMAL) CBC without differential (10/28/2024 6:47 AM CDT) WBC 7.85 3.80 - 9.90 K/cumm Hgb 9.8(L) 11.9 - 15.5 g/dL [facility] Hct 31.4(L) 35.6 - 45.5 % [facility] Plt 248 150 - 400 K/cumm [facility] MPV 9.0(L) 9.1 - 12.3 fL [facility] RBC 3.19(L) 3.90 - 5.20 M/cumm [facility] MCV 98.4(H) 81.3 - 96.4 fL [facility] MCH 30.7 27.1 - 33.3 pg [facility] MCHC 31.2(L) 32.3 - 35.7 g/dL [facility] RDW CV 12.7 11.1 - 14.9 % [facility] RDW SD 45.3 35.7 - 48.1 fL [facility] NRBC abs 0.00 0.00 - 0.01 K/cumm [facility] Blood 10/28/2024 6:47 AM CDT 10/28/2024 7:51 AM CDT Betty JUAREZ LAB BLOOD ORDERABLES Quynh l Result Performing Organization Address [facility] Co de Phone Number [address] Department [place] [address] * Basic metabolic panel (10/28/2024 6:47 AM CDT) Sodium 137 135 - 145 mmol/L Potassium, pl 3.9 3.3 - 4.9 mmol/L [facility] Chloride 103 97 - 110 mmol/L [facility] CO2 25 22 - 32 mmol/L [facility] Anion gap 9 2 - 15 mmol/L [facility] BUN 8 6 - 25 mg/dL [facility] Creatinine 0.64 0.60 - 1.10 mg/dL [facility] Glucose 93 70 - 199 mg/dL [facility] Comment: Interpretive Data Fasting glucose >/= 126 mg/dl is diagnostic for diabetes. Fasting is defined as no caloric intake for at least 8 hours. Fasting glucose between 100 mg/dl to 125 mg/dl is diagnostic of prediabetes. In a patient with classic symptoms of hyperglycemia or hyperglycemic crisis, a random glucose >/= 200 mg/dl is diagnostic for diabetes. In the absence of unequivocal hyperglycemia, results should be confirmed by repeat testing. The classification and Diagnosis of Diabetes Diabetes Care 2021; 46: S19-S40. Current interpretive data was last revised 2022. Calcium 8.9 8.5 - 10.3 mg/dL [facility] Blood 10/28/2024 6:47 AM CDT 10/28/2024 7:51 AM CDT Betty JUAREZ LAB BLOOD ORDERABLES Quynh l Result Performing Organization Address [facility] Co de Phone Number [facility] [address] [facility] Department [place] [address] * X-ray chest 1 view (Portable) (10/27/2024 4:40 PM CDT) Anatomical Region Laterality Modality Body, Chest N/A Computed Radiogr aphy 10/27/2024 6:11 PM CDT Narrative 10/27/2024 6:25 PM CDT EXAM DESCRIPTION: XR CHEST 1 VIEW REASON FOR STUDY: Post picc tip confirmation x 10/27/24. TECHNIQUE: AP radiographic view(s) of the chest. COMPARISON: 10/22/2024 and 09/17/2024 FINDINGS: LUNGS: There is interstitial prominence within the lungs. There is mild patchy opacity in the retrocardiac left lung base. No effusion or pneumothorax. HEART/MEDIASTINUM: Cardiac silhouette is mildly enlarged likely magnified by technique. Pulmonary vascularity borderline enlarged. Atherosclerotic calcification of the thoracic aorta. LINES/TUBES: There is a right-sided cardiac device, stable in position. Interval placement of a PICC line from a left upper extremity approach. The PICC line can be followed to the level of the brachiocephalic vein. It is not visualized with certainty distal to this point. Advancement can be considered if desired placement is within the SVC. If repositioning is performed, follow-up radiograph would be recommended. BONES: No acute osseous abnormality. IMPRESSION: 1. Minimal left basilar opacity, atelectasis versus pneumonia. There is some interstitial prominence within both lungs. 2. Cardiac silhouette mildly enlarged, likely magnified by technique. 3. PICC line in place from left upper extremity approach and can be followed to the level of the brachiocephalic vein though is not visualized with certainty distal to this point. If placement in the SVC is desired, advancement of approximately 4-5 cm would be recommended. If catheter is repositioned, repeat radiograph is recommended. Findings were discussed with EKATERINA Ha via phone call at 6:24 p.m. on 10/27/2024. THIS IS AN ELECTRONICALLY VERIFIED FINAL REPORT 10/27/2024 6:25 PM - Electronically signed by Maryam Rose M.D. TW T: Report ID: [id number] Reading Location: [id number] Procedure Note Maryam Rose MD - 10/27/2024 EXAM DESCRIPTION: XR CHEST 1 VIEW REASON FOR STUDY: Post picc tip confirmation x 10/27/24. TECHNIQUE: AP radiographic view(s) of the chest. COMPARISON: 10/22/2024 and 09/17/2024 FINDINGS: LUNGS: There is interstitial prominence within the lungs.There is mild patchy opacity in the retrocardiac left lung base. No effusion or pneumothorax. HEART/MEDIASTINUM: Cardiac silhouette is mildly enlarged likely magnifiedby technique. Pulmonary vascularity borderline enlarged. Atherosclerotic calcification of the thoracic aorta. LINES/TUBES: There is a right-sided cardiac device, stable in position. Interval placement of a PICC line from a left upper extremity approach.The PICC line can be followed to the level of the brachiocephalic vein. It isnot visualized with certainty distal to this point. Advancement can beconsidered if desired placement is within the SVC. If repositioning is performed, follow-up radiograph would be recommended. BONES: No acute osseous abnormality. IMPRESSION: 1. Minimal left basilar opacity, atelectasis versus pneumonia. There is some interstitial prominence within both lungs. 2. Cardiac silhouette mildly enlarged, likely magnified by technique. 3. PICC line in place from left upper extremity approach and can befollowed to the level of the brachiocephalic vein though is not visualized with certainty distal to this point. If placement in the SVC is desired, advancement of approximately 4-5 cm would be recommended. If catheter is repositioned, repeat radiograph is recommended. Findings were discussed with EKATERINA Ha via phone call at 6:24 p.m. on 10/27/2024. THIS IS AN ELECTRONICALLY VERIFIED FINAL REPORT 10/27/2024 6:25 PM - Electronically signed by Maryam Rose M.D. TW T: Report ID: [id number] Reading Location: [id number] Vitaliy Alcazar MD IMG XR PROCEDURES Final Resu lt * eGFR (10/27/2024 7:21 AM CDT) eGFR >90 >=60 mL/min/1. 73 m2 Comment: Interpretive Data Reference Interval Normal >/= 90 mL/min/1.73m2 Mildly decreased* 60 - 89 mL/min/1.73m2 Mildly to moderately decreased 45 - 59 mL/min/1.73m2 Moderately to severely decreased 30 - 44 mL/min/1.73m2 Severely decreased 15 - 29 mL/min/1.73m2 Kidney Failure < 15 mL/min/1.73m2 *Relative to young adult level Estimated glomerular filtration rate is determined by the 2020 CKD-EPI equation recommended by the National Kidney Foundation (A Unifying Approach to GFR Estimation: Recommendations of the NKF-ASK Task Force on Reassessing the Inclusion of Race in Diagnosing Kidney Disease, JASN 2020). The CKD-EPI equation should not be used for patients with unstable renal function and has not been validated in children and those over 70. Current interpretive data was last reviewed 2021. Blood 10/27/2024 7:21 AM CDT 10/27/2024 7:54 AM CDT Betty JUAREZ LAB BLOOD ORDERABLES Quynh ervin Result [place] [id number] [facility] Department of Laboratories [place], [place] [id number] * (ABNORMAL) Differential, auto (10/27/2024 7:21 AM CDT) Pathologist [facility] Neutrophil abs 5.76 1.50 - 6.50 K/cumm Imm gran abs 0.08 0.00 - 0.10 K/cumm [facility] Lymphocyte abs 1.45 0.80 - 3.30 K/cumm [facility] Monocyte abs 0.88(H) 0.20 - 0.80 K/cumm [facility] Eosinophil abs 0.43 0.00 - 0.50 K/cumm [facility] Basophil abs 0.06 0.00 - 0.10 K/cumm [facility] Neutrophil pct 66.5 % [facility] Comment: Interpretive Data Percent cell count reference ranges are not reported, since discordance with absolute values may lead to misinterpretation of CBC data. Current Interpretive Data was last revised on 2017. Imm gran pct 0.9 % [facility] Comment: Interpretive Data Percent cell count reference ranges are not reported, since discordance with absolute values may lead to misinterpretation of CBC data. Current Interpretive Data was last revised on 2017. Lymphocyte pct 16.7 % [facility] Comment: Interpretive Data Percent cell count reference ranges are not reported, since discordance with absolute values may lead to misinterpretation of CBC data. Current Interpretive Data was last revised on 2017. Monocyte pct 10.2 % [facility] Comment: Interpretive Data Percent cell count reference ranges are not reported, since discordance with absolute values may lead to misinterpretation of CBC data. Current Interpretive Data was last revised on 2017. Eosinophil pct 5.0 % [facility] Comment: Interpretive Data Percent cell count reference ranges are not reported, since discordance with absolute values may lead to misinterpretation of CBC data. Current Interpretive Data was last revised on 2017. Basophil pct 0.7 % [facility] Comment: Interpretive Data Percent cell count reference ranges are not reported, since discordance with absolute values may lead to misinterpretation of CBC data. Current Interpretive Data was last revised on 2017. Blood 10/27/2024 7:21 AM CDT 10/27/2024 7:54 AM CDT us Vitaliy Alcazar MD LAB BLOOD ORDERABLES Final R esult [facility] [address] [facility] Department [place] [address] * (ABNORMAL) CBC with auto differential (10/27/2024 7:21 AM CDT) WBC 8.66 3.80 - 9.90 K/cumm Hgb 10.0(L) 11.9 - 15.5 g/dL [facility] Hct 31.5(L) 35.6 - 45.5 % [facility] Plt 288 150 - 400 K/cumm [facility] MPV 8.9(L) 9.1 - 12.3 fL [facility] RBC 3.27(L) 3.90 - 5.20 M/cumm [facility] MCV 96.3 81.3 - 96.4 fL [facility] MCH 30.6 27.1 - 33.3 pg [facility] MCHC 31.7(L) 32.3 - 35.7 g/dL [facility] RDW CV 12.6 11.1 - 14.9 % [facility] RDW SD 43.9 35.7 - 48.1 fL [facility] NRBC abs 0.00 0.00 - 0.01 K/cumm [facility] Blood 10/27/2024 7:21 AM CDT 10/27/2024 7:54 AM CDT Vitaliy Alcazar MD LAB BLOOD ORDERABLES Final R esult Performing Organization Address [facility] Co de Phone Number [address] [place] [address] * Basic metabolic panel (10/27/2024 7:21 AM CDT) Pathologist [facility] Sodium 138 135 - 145 mmol/L Potassium, pl 4.0 3.3 - 4.9 mmol/L [facility] Chloride 104 97 - 110 mmol/L [facility] CO2 24 22 - 32 mmol/L [facility] Anion gap 10 2 - 15 mmol/L [facility] BUN 6 6 - 25 mg/dL [facility] Creatinine 0.61 0.60 - 1.10 mg/dL [facility] Glucose 94 70 - 199 mg/dL [facility] Comment: Interpretive Data Fasting glucose >/= 126 mg/dl is diagnostic for diabetes. Fasting is defined as no caloric intake for at least 8 hours. Fasting glucose between 100 mg/dl to 125 mg/dl is diagnostic of prediabetes. In a patient with classic symptoms of hyperglycemia or hyperglycemic crisis, a random glucose >/= 200 mg/dl is diagnostic for diabetes. In the absence of unequivocal hyperglycemia, results should be confirmed by repeat testing. The classification and Diagnosis of Diabetes Diabetes Care 2021; 46: S19-S40. Current interpretive data was last revised 2022. Calcium 8.6 8.5 - 10.3 mg/dL [facility] Blood 10/27/2024 7:21 AM CDT 10/27/2024 7:54 AM CDT us Betty JUAREZ LAB BLOOD ORDERABLES Quynh l Result Performing Organization Address City/[facility]/ZIP Co de Phone Number [address] [place] [address] * eGFR (10/26/2024 6:09 AM CDT) Pathologist [facility] eGFR >90 >=60 mL/min/1. 73 m2 Comment: Interpretive Data Reference Interval Normal >/= 90 mL/min/1.73m2 Mildly decreased* 60 - 89 mL/min/1.73m2 Mildly to moderately decreased 45 - 59 mL/min/1.73m2 Moderately to severely decreased 30 - 44 mL/min/1.73m2 Severely decreased 15 - 29 mL/min/1.73m2 Kidney Failure < 15 mL/min/1.73m2 *Relative to young adult level Estimated glomerular filtration rate is determined by the 2020 CKD-EPI equation recommended by the National Kidney Foundation (A Unifying Approach to GFR Estimation: Recommendations of the NKF-ASK Task Force on Reassessing the Inclusion of Race in Diagnosing Kidney Disease, JASN 2020). The CKD-EPI equation should not be used for patients with unstable renal function and has not been validated in children and those over 70. Current interpretive data was last reviewed 2021. Blood 10/26/2024 6:09 AM CDT 10/26/2024 6:26 AM CDT us Vitaliy Alcazar MD LAB BLOOD ORDERABLES Final R esult [facility] [address] [facility] Department [place] [address] * (ABNORMAL) Differential, auto (10/26/2024 6:09 AM CDT) Pathologist [facility] Neutrophil abs 4.07 1.50 - 6.50 K/cumm Imm gran abs 0.07 0.00 - 0.10 K/cumm [facility] Lymphocyte abs 1.36 0.80 - 3.30 K/cumm [facility] Monocyte abs 0.76 0.20 - 0.80 K/cumm [facility] Eosinophil abs 0.53(H) 0.00 - 0.50 K/cumm [facility] Basophil abs 0.06 0.00 - 0.10 K/cumm [facility] Neutrophil pct 59.4 % [facility] Comment: Interpretive Data Percent cell count reference ranges are not reported, since discordance with absolute values may lead to misinterpretation of CBC data. Current Interpretive Data was last revised on 2017. Imm gran pct 1.0 % [facility] Comment: Interpretive Data Percent cell count reference ranges are not reported, since discordance with absolute values may lead to misinterpretation of CBC data. Current Interpretive Data was last revised on 2017. Lymphocyte pct 19.9 % [facility] Comment: Interpretive Data Percent cell count reference ranges are not reported, since discordance with absolute values may lead to misinterpretation of CBC data. Current Interpretive Data was last revised on 2017. Monocyte pct 11.1 % [facility] Comment: Interpretive Data Percent cell count reference ranges are not reported, since discordance with absolute values may lead to misinterpretation of CBC data. Current Interpretive Data was last revised on 2017. Eosinophil pct 7.7 % [facility] Comment: Interpretive Data Percent cell count reference ranges are not reported, since discordance with absolute values may lead to misinterpretation of CBC data. Current Interpretive Data was last revised on 2017. Basophil pct 0.9 % [facility] Comment: Interpretive Data Percent cell count reference ranges are not reported, since discordance with absolute values may lead to misinterpretation of CBC data. Current Interpretive Data was last revised on 2017. Blood 10/26/2024 6:09 AM CDT 10/26/2024 6:26 AM CDT us Vitaliy Alcazar MD LAB BLOOD ORDERABLES Final R esult [facility] [address] [facility] Department [place] [address] * (ABNORMAL) CBC with auto differential (10/26/2024 6:09 AM CDT) WBC 6.85 3.80 - 9.90 K/cumm Hgb 9.2(L) 11.9 - 15.5 g/dL [facility] Hct 28.6(L) 35.6 - 45.5 % [facility] Plt 254 150 - 400 K/cumm [facility] MPV 8.8(L) 9.1 - 12.3 fL [facility] RBC 3.01(L) 3.90 - 5.20 M/cumm [facility] MCV 95.0 81.3 - 96.4 fL [facility] MCH 30.6 27.1 - 33.3 pg [facility] MCHC 32.2(L) 32.3 - 35.7 g/dL [facility] RDW CV 12.2 11.1 - 14.9 % [facility] RDW SD 42.5 35.7 - 48.1 fL [facility] NRBC abs 0.00 0.00 - 0.01 K/cumm [facility] Blood 10/26/2024 6:09 AM CDT 10/26/2024 6:26 AM CDT us Vitaliy Alcazar MD LAB BLOOD ORDERABLES Final R esult Performing Organization Address City/[facility] Co de Phone Number [address] [place] [address] * Hemoglobin A1c (10/26/2024 6:09 AM CDT) [facility] Hgb A1C 5.1 4.0 - 5.6 % Estimated Average Glucose 100 mg/dL [facility] Comment: The ADA recommends reporting an estimated Average Glucose (eAG) with all Hemoglobin A1c results using the equation derived from a study of 507 normal and diabetic adults. Minority populations were underrepresented and children were not included. (Diabetes Care 31:5812-4561, 2008). The eAG is not equivalent to a fasting glucose. Blood 10/26/2024 6:09 AM CDT 10/26/2024 6:26 AM CDT us Bhupinder Bobo MD LAB BLOOD ORDERABLES Final Result Performing Organization Address City/[facility]/ZIP Co de Phone Number [address] [place] [address] * (ABNORMAL) Creatine kinase (CK), total (10/26/2024 6:09 AM CDT) CK 19(L) 30 - 200 Units/L Blood 10/26/2024 6:09 AM CDT 10/26/2024 6:26 AM CDT us Adelfo Marsh MD LAB BLOOD ORDERABLES F inal Result [facility] [address] [facility] Department [place] [address] * (ABNORMAL) Comprehensive metabolic panel (10/26/2024 6:09 AM CDT) Pathologist [facility] Sodium 139 135 - 145 mmol/L Potassium, pl 4.2 3.3 - 4.9 mmol/L [facility] Chloride 106 97 - 110 mmol/L [facility] CO2 25 22 - 32 mmol/L [facility] Anion gap 8 2 - 15 mmol/L [facility] BUN 6 6 - 25 mg/dL [facility] Creatinine 0.55(L) 0.60 - 1.10 mg/dL [facility] Glucose 90 70 - 199 mg/dL [facility] Comment: Interpretive Data Fasting glucose >/= 126 mg/dl is diagnostic for diabetes. Fasting is defined as no caloric intake for at least 8 hours. Fasting glucose between 100 mg/dl to 125 mg/dl is diagnostic of prediabetes. In a patient with classic symptoms of hyperglycemia or hyperglycemic crisis, a random glucose >/= 200 mg/dl is diagnostic for diabetes. In the absence of unequivocal hyperglycemia, results should be confirmed by repeat testing. The classification and Diagnosis of Diabetes Diabetes Care 2021; 46: S19-S40. Current interpretive data was last revised 2022. Calcium 8.7 8.5 - 10.3 mg/dL [facility] Bilirubin, total 0.2 0.1 - 1.2 mg/dL [facility] Protein, pl 5.4(L) 6.5 - 8.5 g/dL [facility] Albumin 2.9(L) 3.5 - 5.0 g/dL [facility] Alk phos 142(H) 40 - 130 Units/L [facility] ALT 14 7 - 45 Units/L [facility] AST 22 10 - 45 Units/L [facility] Blood 10/26/2024 6:09 AM CDT 10/26/2024 6:26 AM CDT Vitaliy Alcazar MD LAB BLOOD ORDERABLES Final R esult Performing Organization Address City/[facility] Co de Phone Number [address] [address] * eGFR (10/25/2024 7:17 AM CDT) eGFR >90 >=60 mL/min/1. 73 m2 Comment: Interpretive Data Reference Interval Normal >/= 90 mL/min/1.73m2 Mildly decreased* 60 - 89 mL/min/1.73m2 Mildly to moderately decreased 45 - 59 mL/min/1.73m2 Moderately to severely decreased 30 - 44 mL/min/1.73m2 Severely decreased 15 - 29 mL/min/1.73m2 Kidney Failure < 15 mL/min/1.73m2 *Relative to young adult level Estimated glomerular filtration rate is determined by the 2020 CKD-EPI equation recommended by the National Kidney Foundation (A Unifying Approach to GFR Estimation: Recommendations of the NKF-ASK Task Force on Reassessing the Inclusion of Race in Diagnosing Kidney Disease, JASN 2020). The CKD-EPI equation should not be used for patients with unstable renal function and has not been validated in children and those over 70. Current interpretive data was last reviewed 2021. Blood 10/25/2024 7:17 AM CDT 10/25/2024 7:59 AM CDT Betty JUAREZ LAB BLOOD ORDERABLES Quynh l Result Performing Organization Address City/[facility]/ZIP Co de Phone Number [address] [place] [address] * Thyroid Function [place] (10/25/2024 7:17 AM CDT) TSH 1.47 0.30 - 4.20 mcIUnit/mL Blood 10/25/2024 7:17 AM CDT 10/25/2024 7:59 AM CDT Bhupinder Bobo MD LAB BLOOD ORDERABLES Final Result Performing Organization Address [facility] Co de Phone Number [facility] [address] [place] [address] * (ABNORMAL) CBC without differential (10/25/2024 7:17 AM CDT) WBC 6.32 3.80 - 9.90 K/cumm Hgb 10.2(L) 11.9 - 15.5 g/dL [facility] Hct 32.2(L) 35.6 - 45.5 % [facility] Plt 275 150 - 400 K/cumm [facility] MPV 9.0(L) 9.1 - 12.3 fL [facility] RBC 3.28(L) 3.90 - 5.20 M/cumm [facility] MCV 98.2(H) 81.3 - 96.4 fL [facility] MCH 31.1 27.1 - 33.3 pg [facility] MCHC 31.7(L) 32.3 - 35.7 g/dL [facility] RDW CV 12.0 11.1 - 14.9 % [facility] RDW SD 43.7 35.7 - 48.1 fL [facility] NRBC abs 0.00 0.00 - 0.01 K/cumm [facility] Blood 10/25/2024 7:17 AM CDT 10/25/2024 7:59 AM CDT Betty JUAREZ LAB BLOOD ORDERABLES Quynh l Result [address] [place] [address] * Magnesium (10/25/2024 7:17 AM CDT) Magnesium 2.4 1.4 - 2.5 mg/dL Blood 10/25/2024 7:17 AM CDT 10/25/2024 7:59 AM CDT Md Chi Velásquez MD LAB BLOOD ORDERABLES Final Resu lt [facility] [address] [facility] Department [place] [address] * (ABNORMAL) Basic metabolic panel (10/25/2024 7:17 AM CDT) [facility] Sodium 140 135 - 145 mmol/L Potassium, pl 4.4 3.3 - 4.9 mmol/L [facility] Chloride 105 97 - 110 mmol/L [facility] CO2 26 22 - 32 mmol/L [facility] Anion gap 9 2 - 15 mmol/L [facility] BUN 6 6 - 25 mg/dL [facility] Creatinine 0.55(L) 0.60 - 1.10 mg/dL [facility] Glucose 89 70 - 199 mg/dL [facility] Comment: Interpretive Data Fasting glucose >/= 126 mg/dl is diagnostic for diabetes. Fasting is defined as no caloric intake for at least 8 hours. Fasting glucose between 100 mg/dl to 125 mg/dl is diagnostic of prediabetes. In a patient with classic symptoms of hyperglycemia or hyperglycemic crisis, a random glucose >/= 200 mg/dl is diagnostic for diabetes. In the absence of unequivocal hyperglycemia, results should be confirmed by repeat testing. The classification and Diagnosis of Diabetes Diabetes Care 202; 46: S19-S40. Current interpretive data was last revised 2022. Calcium 8.7 8.5 - 10.3 mg/dL [facility] Blood 10/25/2024 7:17 AM CDT 10/25/2024 7:59 AM CDT Betty JUAREZ LAB BLOOD ORDERABLES Quynh l Result [place] [address] [facility] Department [place] [address] * eGFR (10/24/2024 7:38 AM CDT) eGFR >90 >=60 mL/min/1. 73 m2 Comment: Interpretive Data Reference Interval Normal >/= 90 mL/min/1.73m2 Mildly decreased* 60 - 89 mL/min/1.73m2 Mildly to moderately decreased 45 - 59 mL/min/1.73m2 Moderately to severely decreased 30 - 44 mL/min/1.73m2 Severely decreased 15 - 29 mL/min/1.73m2 Kidney Failure < 15 mL/min/1.73m2 *Relative to young adult level Estimated glomerular filtration rate is determined by the 2020 CKD-EPI equation recommended by the National Kidney Foundation (A Unifying Approach to GFR Estimation: Recommendations of the NKF-ASK Task Force on Reassessing the Inclusion of Race in Diagnosing Kidney Disease, JASN 2020). The CKD-EPI equation should not be used for patients with unstable renal function and has not been validated in children and those over 70. Current interpretive data was last reviewed 2021. Blood 10/24/2024 7:38 AM CDT 10/24/2024 7:47 AM CDT us Betty JUAREZ LAB BLOOD ORDERABLES Quynh l Result [facility] [address] [facility] Department [place] [address] * (ABNORMAL) CBC without differential (10/24/2024 7:38 AM CDT) Pathologist [facility] WBC 6.81 3.80 - 9.90 K/cumm Hgb 9.7(L) 11.9 - 15.5 g/dL [facility] Hct 29.7(L) 35.6 - 45.5 % [facility] Plt 247 150 - 400 K/cumm [facility] MPV 9.6 9.1 - 12.3 fL [facility] RBC 3.02(L) 3.90 - 5.20 M/cumm [facility] MCV 98.3(H) 81.3 - 96.4 fL [facility] MCH 32.1 27.1 - 33.3 pg [facility] MCHC 32.7 32.3 - 35.7 g/dL [facility] RDW CV 12.3 11.1 - 14.9 % [facility] RDW SD 44.4 35.7 - 48.1 fL [facility] NRBC abs 0.00 0.00 - 0.01 K/cumm [facility] Blood 10/24/2024 7:38 AM CDT 10/24/2024 7:47 AM CDT Betty JUAREZ LAB BLOOD ORDERABLES Quynh l Result Performing Organization Address City/[facility] Co de Phone Number [address] [place] [address] * Magnesium (10/24/2024 7:38 AM CDT) [facility] Magnesium 2.4 1.4 - 2.5 mg/dL Blood 10/24/2024 7:38 AM CDT 10/24/2024 7:47 AM CDT Md Chi Velásquez MD LAB BLOOD ORDERABLES Final Resu lt Performing Organization Address [facility] de Phone Number [address] [place] [address] * (ABNORMAL) Basic metabolic panel (10/24/2024 7:38 AM CDT) [facility] Sodium 133(L) 135 - 145 mmol/L Potassium, pl 4.8 3.3 - 4.9 mmol/L [facility] Comment:Hemolyzed; Potassium value may be falsely elevated by as much as 1.0 mmol/L. Suggest redraw and reanalysis. Chloride 99 97 - 110 mmol/L [facility] CO2 26 22 - 32 mmol/L [facility] Anion gap 8 2 - 15 mmol/L [facility] BUN 9 6 - 25 mg/dL [facility] Creatinine 0.58(L) 0.60 - 1.10 mg/dL [facility] Glucose 101 70 - 199 mg/dL [facility] Comment: Interpretive Data Fasting glucose >/= 126 mg/dl is diagnostic for diabetes. Fasting is defined as no caloric intake for at least 8 hours. Fasting glucose between 100 mg/dl to 125 mg/dl is diagnostic of prediabetes. In a patient with classic symptoms of hyperglycemia or hyperglycemic crisis, a random glucose >/= 200 mg/dl is diagnostic for diabetes. In the absence of unequivocal hyperglycemia, results should be confirmed by repeat testing. The classification and Diagnosis of Diabetes Diabetes Care 2021; 46: S19-S40. Current interpretive data was last revised 2022. Calcium 8.5 8.5 - 10.3 mg/dL [facility] Blood 10/24/2024 7:38 AM CDT 10/24/2024 7:47 AM CDT us Betty JUAREZ LAB BLOOD ORDERABLES Quynh ervin Result [facility] [address] [facility] Department [place] [address] * Blood culture Blood (10/23/2024 3:47 PM CDT) Report Final Report: No growth Comment:Testing performed by : [facility], [address] [facility], [place]., [address] Blood 10/23/2024 3:47 PM CDT 10/23/2024 8:22 PM CDT Narrative [facility]IE - 10/28/2024 7:00 AM CDT From a different site than #1. Collection->Peripheral 1. Blood cultures are incubated for 4 days on a continuously monitored blood culture system. The first report of a negative culture is issued within 24 hours of receipt of the specimen in the laboratory. 2. Positive culture results are reported as soon as they are detected. 3. The most important factor for detection of microbes in the setting of bloodstream infection is the volume of blood submitted for culture. Failure to collect an optimal blood volume can result in false negative blood cultures. 4. For pediatric patients, the recommended blood volume to collect follows a weight based strategy. See the electronic test catalog for collection instructions. 5. For positive blood cultures, a rapid molecular test may be performed for organism identification using the gerard ePlex blood culture identification panel for gram positive (BCID-GP) and gram negative (BCID-GN) organisms. This nucleic acid amplification test detects microbial DNA in positive blood culture broth. This assay has been cleared by the [place] Food and Drug Administration and its performance characteristics have been verified by the [facility] Microbiology Laboratory. For questions about this culture, contact the Microbiology Laboratory at [phone]. Interpretive data was last revised on 24. Md Chi Velásquez MD LAB MICROBIOLOGY - [facility]AL [facility] Final Result [facility] [address] [facility] [place] [address] * Blood culture Blood (10/23/2024 3:47 PM CDT) Report Final Report: No growth Comment:Testing performed by : [facility], [address] [facility] [place] [address] Blood 10/23/2024 3:47 PM CDT 10/23/2024 8:22 PM CDT [facility] - 10/28/2024 7:00 AM CDT Collection->Peripheral 1. Blood cultures are incubated for 4 days on a continuously monitored blood culture system. The first report of a negative culture is issued within 24 hours of receipt of the specimen in the laboratory. 2. Positive culture results are reported as soon as they are detected. 3. The most important factor for detection of microbes in the setting of bloodstream infection is the volume of blood submitted for culture. Failure to collect an optimal blood volume can result in false negative blood cultures. 4. For pediatric patients, the recommended blood volume to collect follows a weight based strategy. See the electronic test catalog for collection instructions. 5. For positive blood cultures, a rapid molecular test may be performed for organism identification using the gerard ePlex blood culture identification panel for gram positive (BCID-GP) and gram negative (BCID-GN) organisms. This nucleic acid amplification test detects microbial DNA in positive blood culture broth. This assay has been cleared by the [place] Food and Drug Administration and its performance characteristics have been verified by the [facility]biology Laboratory. For questions about this culture, contact the Microbiology Laboratory at [phone]. Interpretive data was last revised on 24. Md Chi Velásquez MD LAB MICROBIOLOGY - GENERAL JR LEMUS Final Result Performing Organization Address [facility] Co de Phone Number MARJORIE [address] [address] * eGFR (10/23/2024 8:59 AM CDT) Pathologist [facility] eGFR >90 >=60 mL/min/1. 73 m2 Comment: Interpretive Data Reference Interval Normal >/= 90 mL/min/1.73m2 Mildly decreased* 60 - 89 mL/min/1.73m2 Mildly to moderately decreased 45 - 59 mL/min/1.73m2 Moderately to severely decreased 30 - 44 mL/min/1.73m2 Severely decreased 15 - 29 mL/min/1.73m2 Kidney Failure < 15 mL/min/1.73m2 *Relative to young adult level Estimated glomerular filtration rate is determined by the 2020 CKD-EPI equation recommended by the National Kidney Foundation (A Unifying Approach to GFR Estimation: Recommendations of the NKF-ASK Task Force on Reassessing the Inclusion of Race in Diagnosing Kidney Disease, JASN 2020). The CKD-EPI equation should not be used for patients with unstable renal function and has not been validated in children and those over 70. Current interpretive data was last reviewed 2021. Blood 10/23/2024 8:59 AM CDT 10/23/2024 9:07 AM CDT Betty JUAREZ LAB BLOOD ORDERABLES Quynh l Result Performing Organization Address City/[facility]/ZIP Co de Phone Number MAGGY[address] [place] [address] * (ABNORMAL) CBC without differential (10/23/2024 8:59 AM CDT) [facility] WBC 6.64 3.80 - 9.90 K/cumm Hgb 9.6(L) 11.9 - 15.5 g/dL [facility] Hct 29.8(L) 35.6 - 45.5 % [facility] Plt 204 150 - 400 K/cumm [facility] MPV 8.8(L) 9.1 - 12.3 fL [facility] RBC 3.08(L) 3.90 - 5.20 M/cumm [facility] MCV 96.8(H) 81.3 - 96.4 fL [facility] MCH 31.2 27.1 - 33.3 pg [facility] MCHC 32.2(L) 32.3 - 35.7 g/dL [facility] RDW CV 12.4 11.1 - 14.9 % [facility] RDW SD 43.9 35.7 - 48.1 fL [facility] NRBC abs 0.00 0.00 - 0.01 K/cumm [facility] Blood 10/23/2024 8:59 AM CDT 10/23/2024 9:07 AM CDT Betty Calvin PA LAB BLOOD ORDERABLES Quynh l Result Performing Organization Address City/[facility]/ZIP Co de Phone Number [address] [place] [address] * (ABNORMAL) CRP (acute phase) (10/23/2024 8:59 AM CDT) [facility] CRP 129.0(H) <=10.0 mg/L Blood 10/23/2024 8:59 AM CDT 10/23/2024 9:07 AM CDT Kmiberly Ross [employer] LAB BLOOD ORDERABLES Final R esult [address] [place], [place] [id number] * (ABNORMAL) Basic metabolic panel (10/23/2024 8:59 AM CDT) Pathologist [facility] Sodium 133(L) 135 - 145 mmol/L Potassium, pl 3.9 3.3 - 4.9 mmol/L [facility] Chloride 98 97 - 110 mmol/L [facility] CO2 25 22 - 32 mmol/L [facility] Anion gap 10 2 - 15 mmol/L [facility] BUN 10 6 - 25 mg/dL [facility] Creatinine 0.63 0.60 - 1.10 mg/dL [facility] Glucose 123 70 - 199 mg/dL [facility] Comment: Interpretive Data Fasting glucose >/= 126 mg/dl is diagnostic for diabetes. Fasting is defined as no caloric intake for at least 8 hours. Fasting glucose between 100 mg/dl to 125 mg/dl is diagnostic of prediabetes. In a patient with classic symptoms of hyperglycemia or hyperglycemic crisis, a random glucose >/= 200 mg/dl is diagnostic for diabetes. In the absence of unequivocal hyperglycemia, results should be confirmed by repeat testing. The classification and Diagnosis of Diabetes Diabetes Care 202; 46: S19-S40. Current interpretive data was last revised 2022. Calcium 8.1(L) 8.5 - 10.3 mg/dL [facility] Blood 10/23/2024 8:59 AM CDT 10/23/2024 9:07 AM CDT us Betty JUAREZ LAB BLOOD ORDERABLES Quynh l Result [facility] [address] [facility] Department [place] [address] * XR Chest Pa Lateral 2 Views (10/22/2024 5:56 PM CDT) Anatomical Region Laterality Modality Body, Chest N/A Computed Radiogr aphy 10/22/2024 9:22 PM CDT Narrative 10/22/2024 9:24 PM CDT EXAM DESCRIPTION: XR CHEST PA LATERAL 2 VIEWS REASON FOR STUDY: fever Per order Fever PT covid+ TECHNIQUE: Frontal and lateral radiographic view(s) of the chest. COMPARISON: 09/17/2024. FINDINGS: LUNGS: Bilateral infrahilar peribronchial thickening. There is associated hazy opacities in the lung bases seen over the spine on the lateral view although without silhouetting the diaphragms. No pleural effusion or pneumothorax. HEART/MEDIASTINUM: Cardiac silhouette normal in size. Mediastinal and hilar contours appear normal. LINES/TUBES: ACDF noted. BONES: No acute osseous abnormality. IMPRESSION: Bilateral infrahilar peribronchial thickening and hazy opacities in the lung bases. Findings are nonspecific but may be due to a viral infection. THIS IS AN ELECTRONICALLY VERIFIED FINAL REPORT 10/22/2024 9:24 PM - Electronically signed by Blake Rosas M.D. T: Report ID: [id number] Reading Location: [id number] Procedure Note Blake Rosas Jr., MD - 10/22/2024 EXAM DESCRIPTION: XR CHEST PA LATERAL 2 VIEWS REASON FOR STUDY: fever Per order Fever PT covid+ TECHNIQUE: Frontal and lateral radiographic view(s) of the chest. COMPARISON: 09/17/2024. FINDINGS: LUNGS: Bilateral infrahilar peribronchial thickening. There is associated hazy opacities in the lung bases seen over the spine on thelateral view although without silhouetting the diaphragms. No pleural effusion or pneumothorax. HEART/MEDIASTINUM: Cardiac silhouette normal in size. Mediastinal andhilar contours appear normal. LINES/TUBES: ACDF noted. BONES: No acute osseous abnormality. IMPRESSION: Bilateral infrahilar peribronchial thickening and hazyopacities in the lung bases. Findings are nonspecific but may be due to a viral infection. THIS IS AN ELECTRONICALLY VERIFIED FINAL REPORT 10/22/2024 9:24 PM - Electronically signed by Blake Rosas M.D. T: Report ID: [id number] Reading Location: [id number] us Kimberly Ross [employer] IMG XR PROCEDURES Final Resu lt * (ABNORMAL) Pro B-type natriuretic peptide (10/22/2024 5:40 PM CDT) NT-proBNP 1,105(H) <=450 pg/mL Comment: Interpretive Comments: A. Dyspnea in Acute Care Setting All Ages: < 300 pg/ml, acute heart failure unlikely. < 50 yrs: 300 - 450 pg/ml, further investigation warranted. > 450 pg/ml, acute heart failure likely. 50 - 74 yrs: 300 - 900 pg/ml, further investigation warranted. > 900 pg/ml, acute heart failure likely . > or = 75 yrs: 450 - 1800 pg/ml, further investigation warranted. > 1800 pg/ml, acute heart failure likely. B. Non-acute Setting < 75 yrs < 125 pg/ml, rules out heart failure. > or = 125 pg/ml, further investigation warranted. > or = 75 yrs < 450 pg/ml, rules out heart failure. > or = 450 pg/ml, further investigation warranted. - Knowledge of each individual patient's NT-proBNP range may be more useful than using similar cut-points for every patient. Please note that marked elevations in NT-proBNP levels may be observed in state other than Left Ventricular Congestive Failure, including: acute coronary syndromes, right heart strain/failure (including pulmonary embolism and cor pulmonale), critical illness, renal failure, as well as advanced age. - References: 1. Dariana PIEDRA et.al. Eur Heart J. 2006:27:330-337. 2. Trinity RW, Mojgan MARTINEZ. J. AM Jeremi Cardiol: Cardiovasc Imag. 2009;2: 216- 225. Interpretive Data Last Revised Date: 2018. Blood 10/22/2024 5:40 PM CDT 10/22/2024 5:45 PM CDT Kimberly Ross NP LAB BLOOD ORDERABLES Final R esult [facility] [address] [facility] Department [place] [address] * Blood culture Blood (10/22/2024 5:40 PM CDT) Report Final Report: No growth Comment:Testing performed by : [facility], [address] [facility], [place]., [address] Blood 10/22/2024 5:40 PM CDT 10/22/2024 7:14 PM CDT Narrative MARJORIE - 10/27/2024 7:00 AM CDT From a different site than #1. Collection->Peripheral 1. Blood cultures are incubated for 4 days on a continuously monitored blood culture system. The first report of a negative culture is issued within 24 hours of receipt of the specimen in the laboratory. 2. Positive culture results are reported as soon as they are detected. 3. The most important factor for detection of microbes in the setting of bloodstream infection is the volume of blood submitted for culture. Failure to collect an optimal blood volume can result in false negative blood cultures. 4. For pediatric patients, the recommended blood volume to collect follows a weight based strategy. See the electronic test catalog for collection instructions. 5. For positive blood cultures, a rapid molecular test may be performed for organism identification using the gerard ePlex blood culture identification panel for gram positive (BCID-GP) and gram negative (BCID-GN) organisms. This nucleic acid amplification test detects microbial DNA in positive blood culture broth. This assay has been cleared by the [place] Food and Drug Administration and its performance characteristics have been verified by the [facility]biology Laboratory. For questions about this culture, contact the Microbiology Laboratory at [phone]. Interpretive data was last revised on 24. Kimberly Ross NP LAB MICROBIOLOGY - GENERAL O RDERABLES Final Result MARJORIE SUTHERLAND [address] [facility] Department [place] [address] * Blood culture Blood (10/22/2024 4:16 PM CDT) [facility] Signature Report Final Report: No growth Comment:Testing performed by : [facility], [address] [facility] [place]., [address] Blood 10/22/2024 4:16 PM CDT 10/22/2024 7:10 PM CDT Kodi Samuel 10/27/2024 7:00 AM CDT Collection->Peripheral 1. Blood cultures are incubated for 4 days on a continuously monitored blood culture system. The first report of a negative culture is issued within 24 hours of receipt of the specimen in the laboratory. 2. Positive culture results are reported as soon as they are detected. 3. The most important factor for detection of microbes in the setting of bloodstream infection is the volume of blood submitted for culture. Failure to collect an optimal blood volume can result in false negative blood cultures. 4. For pediatric patients, the recommended blood volume to collect follows a weight based strategy. See the electronic test catalog for collection instructions. 5. For positive blood cultures, a rapid molecular test may be performed for organism identification using the gerard ePlex blood culture identification panel for gram positive (BCID-GP) and gram negative (BCID-GN) organisms. This nucleic acid amplification test detects microbial DNA in positive blood culture broth. This assay has been cleared by the [place] Food and Drug Administration and its performance characteristics have been verified by the [facility]. For questions about this culture, contact the Microbiology Laboratory at [phone]. Interpretive data was last revised on 24. us Kimberly Ross NP LAB MICROBIOLOGY - GENERAL O RDERABLES Final Result MARJORIE [address] [facility] [place] [address] * eGFR (10/22/2024 7:45 AM CDT) eGFR 84 >=60 mL/min/1. 73 m2 Comment: Interpretive Data Reference Interval Normal >/= 90 mL/min/1.73m2 Mildly decreased* 60 - 89 mL/min/1.73m2 Mildly to moderately decreased 45 - 59 mL/min/1.73m2 Moderately to severely decreased 30 - 44 mL/min/1.73m2 Severely decreased 15 - 29 mL/min/1.73m2 Kidney Failure < 15 mL/min/1.73m2 *Relative to young adult level Estimated glomerular filtration rate is determined by the 2020 CKD-EPI equation recommended by the National Kidney Foundation (A Unifying Approach to GFR Estimation: Recommendations of the NKF-ASK Task Force on Reassessing the Inclusion of Race in Diagnosing Kidney Disease, JASN 2020). The CKD-EPI equation should not be used for patients with unstable renal function and has not been validated in children and those over 70. Current interpretive data was last reviewed 2021. Blood 10/22/2024 7:4 5 AM CDT 10/22/2024 8:08 AM CDT Betty JUAREZ LAB BLOOD ORDERABLES Quynh l Result Performing Organization Address [facility]/ZIP Co de Phone Number MARJORIE [address] [place] [address] * (ABNORMAL) CBC without differential (10/22/2024 7:45 AM CDT) Pathologist [facility] WBC 7.20 3.80 - 9.90 K/cumm Hgb 9.5(L) 11.9 - 15.5 g/dL [facility] Hct 30.0(L) 35.6 - 45.5 % [facility] Plt 224 150 - 400 K/cumm [facility] MPV 8.8(L) 9.1 - 12.3 fL [facility] RBC 3.05(L) 3.90 - 5.20 M/cumm [facility] MCV 98.4(H) 81.3 - 96.4 fL [facility] MCH 31.1 27.1 - 33.3 pg [facility] MCHC 31.7(L) 32.3 - 35.7 g/dL [facility] RDW CV 12.5 11.1 - 14.9 % [facility] RDW SD 44.3 35.7 - 48.1 fL [facility] NRBC abs 0.00 0.00 - 0.01 K/cumm [facility] Blood 10/22/2024 7:45 AM CDT 10/22/2024 8:08 AM CDT Betty JUAREZ LAB BLOOD ORDERABLES Quynh l Result Performing Organization Address City/[facility]/ZIP Co de Phone Number [address] [email or web address] [address] [place] [address] * (ABNORMAL) Basic metabolic panel (10/22/2024 7:45 AM CDT) Pathologist [facility] Sodium 135 135 - 145 mmol/L Potassium, pl 4.0 3.3 - 4.9 mmol/L [facility] Chloride 101 97 - 110 mmol/L [facility] CO2 25 22 - 32 mmol/L [facility] Anion gap 9 2 - 15 mmol/L [facility] BUN 12 6 - 25 mg/dL [facility] Creatinine 0.74 0.60 - 1.10 mg/dL [facility] Glucose 91 70 - 199 mg/dL [facility] Comment: Interpretive Data Fasting glucose >/= 126 mg/dl is diagnostic for diabetes. Fasting is defined as no caloric intake for at least 8 hours. Fasting glucose between 100 mg/dl to 125 mg/dl is diagnostic of prediabetes. In a patient with classic symptoms of hyperglycemia or hyperglycemic crisis, a random glucose >/= 200 mg/dl is diagnostic for diabetes. In the absence of unequivocal hyperglycemia, results should be confirmed by repeat testing. The classification and Diagnosis of Diabetes Diabetes Care 2021; 46: S19-S40. Current interpretive data was last revised 2022. Calcium 8.3(L) 8.5 - 10.3 mg/dL [facility] Blood 10/22/2024 7:45 AM CDT 10/22/2024 8:08 AM CDT Betty JUAREZ LAB BLOOD ORDERABLES Quynh ervin Result [facility] [address] [facility] Department [place] [address] * (ABNORMAL) Aerobic and anaerobic culture and gram stain Wound Knee, right (10/21/2024 2:16 PM CDT) Direct Specimen Exam Stain: Rare polymorphonuclear leukocytes seen. No organisms seen. Comment:Testing performed by : [facility], [address] [facility] [place]., [address] Report Final Report: Few Corynebacterium tuberculostearicum This is a non-standardized susceptibility test. Rare Staphylococcus epidermidis Rare Enterococcus faecalis (.) [facility] Comment:Testing performed by : [facility], [address] [facility] [place]., [address] Organism STAPHYLOCOCCUS EPIDERMIDIS [facility] Organism ENTEROCOCCUS FAECALIS [facility] Organism CORYNEBACTERIUM TUBERCULOSTEARICUM [facility] Wound (Knee, right) 10/21/2024 2:16 PM CDT 10/21/2024 6:11 PM CDT Narrative MARJORIE SUTHERLAND - 11/02/2024 1:24 PM CDT Deep right knee for culture Specimen received on an ESwab. Testing performed by [facility] ([phone]) Specimens submitted from normally sterile body sites will have all bacterial morphotypes identified. Specimens that contain grossly mixed dwaine and/or are from body sites that are not normally sterile will be examined for Staphylococcus aureus, Pseudomonas aeruginosa, beta-hemolytic strep, vancomycin-resistant Enterococcus, Bacteroides, Parabacteroides, Clostridium perfringens and fungus. If any of these are isolated, the organism will be reported. Current interpretive data was last revised on 2019. Organism Antibiotic Method Susceptibility Staphylococcus epidermidis Doxycycline (KEERTHI) INTERPRE TATION Susceptible Staphylococcus epidermidis Linezolid (KEERTHI) INTERPRE TATION Susceptible Staphylococcus epidermidis Trimethoprim with Sulfamethoxazole (KEERTHI) INTERPRETATION Resistant Staphylococcus epidermidis Clindamycin (KEERTHI) INTERPRE TATION Susceptible Staphylococcus epidermidis Erythromycin (KEERTHI) INTERPRE TATION Susceptible Staphylococcus epidermidis Vancomycin (KEERTHI) INTERPRE TATION Susceptible Staphylococcus epidermidis Oxacillin (KEERTHI) INTERPRE TATION Susceptible Staphylococcus epidermidis Cefazolin (KEERTHI) INTERPRE TATION Susceptible Staphylococcus epidermidis Ceftriaxone (KEERTHI) INTERPRE TATION Susceptible Enterococcus faecalis Ampicillin (KEERTHI) INTERPRETATIO N Susceptible Enterococcus faecalis Vancomycin (KEERTHI) INTERPRETATIO N Susceptible Enterococcus faecalis Linezolid (KEERTHI) INTERPRETATIO N Susceptible Enterococcus faecalis Doxycycline (KEERTHI) INTERPRETATIO N Resistant Corynebacterium tuberculostearicum Vancomycin (KEERTHI) (KEERTHI) INTERPRETATION Susceptible Corynebacterium tuberculostearicum Penicillin (KEERTHI) (KEERTHI) INTERPRETATION Resistant Corynebacterium tuberculostearicum Ciprofloxacin (KEERTHI) (KEERTHI) INTERPRETATION Resistant Corynebacterium tuberculostearicum Tetracycline (KEERTHI) (KEERTHI) INTERPRETATION Resistant Corynebacterium tuberculostearicum Linezolid (KEERTHI) (KEERTHI) INTERPRETATION Susceptible us Adelfo Marsh MD LAB MICROBIOLOGY - GEN ERAL ORDERABLES Final Result MARJORIE SUTHERLAND [address] [facility] [place] [address] * IN AN ELECTIVE ENDOTRACHEAL AIRWAY, IN AN PROCEDURE PLACEHOLDER (10/21/2024 2:13 PM CDT) Narrative Desiree Melo CRNA - 10/21/2024 2:13 PM CDT Desiree Melo CRNA 10/21/2024 2:14 PM Airway Patient location: OR Urgency: elective Indications for airway management: anesthesia Difficult airway: no Staff: Supervising provider: Amelie Delgado MD Placed by: AIR TECHNICIAN: Desiree Melo CRNA Emergent airway documentation: Risks and benefits discussed: yes Consent obtained: yes Consent given by: patient Airway prep: Preoxygenated: yes Patient position: sniffing Mask difficulty assessment: 0 - not attempted Spontaneous ventilation during airway: absent Sedation level during airway: deep Final airway details: Final airway type: endotracheal airway Tube type: ETT ETT size: 7.0 mm Cuffed: yes Technique used for successful ETT placement: direct laryngoscopy Devices/Methods used in placement: intubating stylet Insertion site: oral Blade type: Mendez Blade size: 3 Cormack-Lehane (direct): grade I - full view of glottis Cuff volume: 6 mL Cuff inflated with: air ETT to teeth: 22 cm Placement verified by: auscultation and CO2 detection Airway secured with: other (pink tape) Number of attempts: 1 Additional comments: Atraumatic. Dentition remains the same as preop us Amelie Delgado MD ANESTHESIA ORDERABLES Final Re sult * (ABNORMAL) Differential, auto (10/21/2024 6:37 AM CDT) Neutrophil abs 6.85(H) 1.50 - 6.50 K/cumm MARJORIE Comment:[address] [address] Imm gran abs 0.11(H) 0.00 - 0.10 K/cumm MARJORIE Comment:[address] [address] Lymphocyte abs 0.79(L) 0.80 - 3.30 K/cumm MARJORIE Comment:[address] [address] Monocyte abs 0.91(H) 0.20 - 0.80 K/cumm CERNER Comment:[facility], [address] [place] [address]., [address] Eosinophil abs 0.12 0.00 - 0.50 K/cumm [facility] Comment:[facility], [address] [place] [address]., [address] Basophil abs 0.06 0.00 - 0.10 K/cumm [facility] Comment:[address] [address] Neutrophil pct 77.5 % [facility] Comment: Interpretive Data Percent cell count reference ranges are not reported, since discordance with absolute values may lead to misinterpretation of CBC data. Current Interpretive Data was last revised on 2017. [address] [address] Imm gran pct 1.2 % [facility] Comment: Interpretive Data Percent cell count reference ranges are not reported, since discordance with absolute values may lead to misinterpretation of CBC data. Current Interpretive Data was last revised on 2017. [address] [address] Lymphocyte pct 8.9 % [facility] Comment: Interpretive Data Percent cell count reference ranges are not reported, since discordance with absolute values may lead to misinterpretation of CBC data. Current Interpretive Data was last revised on 2017. [address] [address] Monocyte pct 10.3 % [facility] Comment: Interpretive Data Percent cell count reference ranges are not reported, since discordance with absolute values may lead to misinterpretation of CBC data. Current Interpretive Data was last revised on 2017. [address] [address] Eosinophil pct 1.4 % [facility] Comment: Interpretive Data Percent cell count reference ranges are not reported, since discordance with absolute values may lead to misinterpretation of CBC data. Current Interpretive Data was last revised on 2017. [address] [address] Basophil pct 0.7 % CERNER Comment: Interpretive Data Percent cell count reference ranges are not reported, since discordance with absolute values may lead to misinterpretation of CBC data. Current Interpretive Data was last revised on 2017. [facility], [address] [place]., [address] Blood 10/21/2024 6:37 AM CDT 10/21/2024 7:26 AM CDT us Elva Hodge [employer] LAB BLOOD ORDERABLES Final Result [facility] [address] [place] [address] * (ABNORMAL) CBC with auto differential (10/21/2024 6:37 AM CDT) WBC 8.84 3.80 - 9.90 K/cumm MARJORIE Comment:[address] [address] Hgb 11.6(L) 11.9 - 15.5 g/dL [facility] Comment:[address], [address] Hct 36.0 35.6 - 45.5 % [facility] Comment:[address] [address] Plt 269 150 - 400 K/cumm [facility] Comment:[address], [address] MPV 9.2 9.1 - 12.3 fL [facility] Comment:[address] [address] RBC 3.61(L) 3.90 - 5.20 M/cumm [facility] Comment:[address] [address] MCV 99.7(H) 81.3 - 96.4 fL [facility] Comment:[address] [address] MCH 32.1 27.1 - 33.3 pg [facility] Comment:[address] [address] MCHC 32.2(L) 32.3 - 35.7 g/dL [facility] Comment:[address], [address] RDW CV 12.4 11.1 - 14.9 % [facility] Comment:[address] [address] RDW SD 45.1 35.7 - 48.1 fL MARJORIE Comment:[address] [address] NRBC abs 0.00 0.00 - 0.01 K/cumm MARJORIE SUTHERLAND Comment:[address] [address] Blood 10/21/2024 6:37 AM CDT 10/21/2024 7:26 AM CDT us Elva Hodge [employer] LAB BLOOD ORDERABLES Final Result MARJORIE [address] [place] [address] * eGFR (10/21/2024 6:31 AM CDT) eGFR >90 >=60 mL/min/1. 73 m2 MARJORIE Comment: Interpretive Data Reference Interval Normal >/= 90 mL/min/1.73m2 Mildly decreased* 60 - 89 mL/min/1.73m2 Mildly to moderately decreased 45 - 59 mL/min/1.73m2 Moderately to severely decreased 30 - 44 mL/min/1.73m2 Severely decreased 15 - 29 mL/min/1.73m2 Kidney Failure < 15 mL/min/1.73m2 *Relative to young adult level Estimated glomerular filtration rate is determined by the 2020 CKD-EPI equation recommended by the National Kidney Foundation (A Unifying Approach to GFR Estimation: Recommendations of the NKF-ASK Task Force on Reassessing the Inclusion of Race in Diagnosing Kidney Disease, JASN 2020). The CKD-EPI equation should not be used for patients with unstable renal function and has not been validated in children and those over 70. Current interpretive data was last reviewed 2021. [facility], [address] [place] [address]., [address] Blood 10/21/2024 6:31 AM CDT 10/21/2024 7:26 AM CDT us Elva Hodge NP LAB BLOOD ORDERABLES Final Result [facility] [address] Department [place] [address] * (ABNORMAL) Comprehensive metabolic panel (10/21/2024 6:31 AM CDT) Sodium 136 135 - 145 mmol/L MARJORIE Comment:[address] [address] Potassium, pl 3.8 3.3 - 4.9 mmol/L MARJORIE Comment:[address] [address] Chloride 100 97 - 110 mmol/L MARJORIE Comment:[address] [address] CO2 26 22 - 32 mmol/L MARJORIE Comment:[address] [address] Anion gap 10 2 - 15 mmol/L MARJORIE Comment:[address] [address] BUN 9 6 - 25 mg/dL MARJORIE Comment:[address] [address] Creatinine 0.67 0.60 - 1.10 mg/dL MARJORIE Comment:[address] [address] Glucose 92 70 - 199 mg/dL MARJORIE Comment: Interpretive Data Fasting glucose >/= 126 mg/dl is diagnostic for diabetes. Fasting is defined as no caloric intake for at least 8 hours. Fasting glucose between 100 mg/dl to 125 mg/dl is diagnostic of prediabetes. In a patient with classic symptoms of hyperglycemia or hyperglycemic crisis, a random glucose >/= 200 mg/dl is diagnostic for diabetes. In the absence of unequivocal hyperglycemia, results should be confirmed by repeat testing. The classification and Diagnosis of Diabetes Diabetes Care 2021; 46: S19-S40. Current interpretive data was last revised 2022. [facility], [address] [place] [address]., [address] Calcium 9.2 8.5 - 10.3 mg/dL MARJORIE Comment:[address] [address] Bilirubin, total 0.3 0.1 - 1.2 mg/dL MARJORIE Comment:[address] [address] Protein, pl 6.5 6.5 - 8.5 g/dL MARJORIE Comment:[address] [address] Albumin 3.3(L) 3.5 - 5.0 g/dL MARJORIE Comment:[address] [address] Alk phos 144(H) 40 - 130 Units/L MARJORIE Comment:[address] [address] ALT 20 7 - 45 Units/L MARJORIE Comment:[address] [address] AST 32 10 - 45 Units/L MARJORIE Comment:[address] [address] Blood 10/21/2024 6:31 AM CDT 10/21/2024 7:26 AM CDT us Elva Hodge [employer] LAB BLOOD ORDERABLES Final Result Performing Organization Address City/State/[facility] Co de Phone Number MARJORIE [address] [facility] Department [place] [address] * XR Knee Right 3 Views (10/20/2024 2:24 PM CDT) Anatomical Region Laterality Modality Lower Extremities, Knee Right Computed Radiography 10/22/2024 9:24 PM CDT Narrative 10/22/2024 9:26 PM CDT EXAM DESCRIPTION: XR KNEE RIGHT 3 VIEWS REASON FOR STUDY: pain RT TKR done 10/07/24, pain and swelling since surgery TECHNIQUE: Three views right knee. COMPARISON: 10/07/2024. FINDINGS: Postsurgical changes are seen right knee arthroplasty. There are skin precious in place. Evidence of patellar resurfacing. No evidence of hardware complication. No aggressive osseous lesion. IMPRESSION: Postsurgical changes of right knee arthroplasty with no evidence of hardware complication. Skin precious remain in place. THIS IS AN ELECTRONICALLY VERIFIED FINAL REPORT 10/22/2024 9:26 PM - Electronically signed by Blake Rosas M.D. T: Report ID: [id number] Reading Location: [id number] Procedure Note Blake Rosas Jr., MD - 10/22/2024 EXAM DESCRIPTION: XR KNEE RIGHT 3 VIEWS REASON FOR STUDY: pain RT TKR done 10/07/24, pain and swelling since surgery TECHNIQUE: Three views right knee. COMPARISON: 10/07/2024. FINDINGS: Postsurgical changes are seen right knee arthroplasty. Thereare skin precious in place. Evidence of patellar resurfacing. No evidence of hardware complication. No aggressive osseous lesion. IMPRESSION: Postsurgical changes of right knee arthroplasty with noevidence of hardware complication. Skin precious remain in place. THIS IS AN ELECTRONICALLY VERIFIED FINAL REPORT 10/22/2024 9:26 PM - Electronically signed by Blake Rosas M.D. T: Report ID: [id number] Reading Location: [id number] Betty JUAREZ IMG XR PROCEDURES Final R esult * (ABNORMAL) Aerobic and anaerobic culture and gram stain Wound Knee, right (10/18/2024 9:30 AM CDT) Direct Specimen Exam Stain: Rare polymorphonuclear leukocytes seen. Rare Gram Positive Cocci MARJORIE SUTHERLAND Comment:[facility], [address] [place]., [address] Report Final Report: Moderate Enterococcus faecalis Moderate Staphylococcus epidermidis (.) MARJORIE Comment:[facility], [address] [place] [address] Organism ENTEROCOCCUS FAECALIS MARJORIE Organism STAPHYLOCOCCUS EPIDERMIDIS MARJORIE Wound (Knee, right) 10/18/2024 9:30 AM CDT 10/18/2024 8:08 PM CDT Narrative MARJORIE - 10/25/2024 12:48 PM CDT Specimen received on an ESwab. Testing performed by [facility] ([phone]) Specimens submitted from normally sterile body sites will have all bacterial morphotypes identified. Specimens that contain grossly mixed dwaine and/or are from body sites that are not normally sterile will be examined for Staphylococcus aureus, Pseudomonas aeruginosa, beta-hemolytic strep, vancomycin-resistant Enterococcus, Bacteroides, Parabacteroides, Clostridium perfringens and fungus. If any of these are isolated, the organism will be reported. Current interpretive data was last revised on 2019. Organism Antibiotic Method Susceptibility Enterococcus faecalis Ampicillin (KEERTHI) INTERPRETATIO N Susceptible Enterococcus faecalis Vancomycin (KEERTHI) INTERPRETATIO N Susceptible Enterococcus faecalis Linezolid (KEERTHI) INTERPRETATIO N Susceptible Enterococcus faecalis Doxycycline (KEERTHI) INTERPRETATIO N Resistant Staphylococcus epidermidis Daptomycin (KEERTHI) (KEERTHI) INTERPRETATION Susceptible Staphylococcus epidermidis Doxycycline (KEERTHI) INTERPRETATION Resistant Staphylococcus epidermidis Linezolid (KEERTHI) INTERPRETATION Susceptible Staphylococcus epidermidis Trimethoprim with Sulfamethoxazole (KEERTHI) INTERPRETATION Resistant Staphylococcus epidermidis Clindamycin (KEERTHI) INTERPRETATION Susceptible Staphylococcus epidermidis Erythromycin (KEERTHI) INTERPRETATION Resistant Staphylococcus epidermidis Oxacillin (KEERTHI) INTERPRETATION Resistant Staphylococcus epidermidis Cefazolin (KEERTHI) INTERPRETATION Resistant Staphylococcus epidermidis Ceftriaxone (KEERTHI) INTERPRETATION Resistant Staphylococcus epidermidis Vancomycin (KEERTHI) (KEERTHI) INTERPRETATION Susceptible us Notinfile Unknown LAB MICROBIOLOGY - GENERAL ORD ERABLES Final Result MARJORIE SUTHERLAND [address] [facility] Department [place] [address] * eGFR (10/15/2024 5:41 AM CDT) eGFR >90 >=60 mL/min/1. 73 m2 MARJORIE SUTHERLAND Comment: Interpretive Data Reference Interval Normal >/= 90 mL/min/1.73m2 Mildly decreased* 60 - 89 mL/min/1.73m2 Mildly to moderately decreased 45 - 59 mL/min/1.73m2 Moderately to severely decreased 30 - 44 mL/min/1.73m2 Severely decreased 15 - 29 mL/min/1.73m2 Kidney Failure < 15 mL/min/1.73m2 *Relative to young adult level Estimated glomerular filtration rate is determined by the 2020 CKD-EPI equation recommended by the National Kidney Foundation (A Unifying Approach to GFR Estimation: Recommendations of the NKF-ASK Task Force on Reassessing the Inclusion of Race in Diagnosing Kidney Disease, JASN 202). The CKD-EPI equation should not be used for patients with unstable renal function and has not been validated in children and those over 70. Current interpretive data was last reviewed 2021. [facility], [facility] [place]., [address] Blood 10/15/2024 5:41 AM CDT 10/15/2024 7:09 AM CDT us Abisai Stover MD LAB BLOOD ORDERABLES Final R esult MARJORIE [address] Department [place] [address] * (ABNORMAL) CBC without differential (10/15/2024 5:41 AM CDT) WBC 9.03 3.80 - 9.90 K/cumm MARJORIE Comment:[address] [address] Hgb 12.3 11.9 - 15.5 g/dL MARJORIE Comment:[address] [address] Hct 38.6 35.6 - 45.5 % MARJORIE Comment:[address] [address] Plt 289 150 - 400 K/cumm MARJORIE Comment:[address] [address] MPV 9.4 9.1 - 12.3 fL MARJORIE Comment:[address] [address] RBC 3.82(L) 3.90 - 5.20 M/cumm MARJORIE Comment:[address] [address] MCV 101.0(H) 81.3 - 96.4 fL MARJORIE Comment:[address] [address] MCH 32.2 27.1 - 33.3 pg MARJORIE Comment:[address] [address] MCHC 31.9(L) 32.3 - 35.7 g/dL MARJORIE SUTHERLAND Comment:[address], [address] RDW CV 12.3 11.1 - 14.9 % MARJORIE Comment:[address] [address] RDW SD 45.9 35.7 - 48.1 fL MARJORIE SUTHERLAND Comment:[address], [address] NRBC abs 0.00 0.00 - 0.01 K/cumm MARJORIE SUTHERLAND Comment:[address], [address] Blood 10/15/2024 5:41 AM CDT 10/15/2024 7:09 AM CDT us Abisai Stover MD LAB BLOOD ORDERABLES Final R esult MARJORIE [address] [facility] Department [place] [address] * (ABNORMAL) Comprehensive metabolic panel (10/15/2024 5:41 AM CDT) Sodium 137 135 - 145 mmol/L MARJORIE Comment:[address], [address] Potassium, pl 4.4 3.3 - 4.9 mmol/L MARJORIE Comment:[address] [address] Chloride 99 97 - 110 mmol/L MARJORIE Comment:[address], [address] CO2 27 22 - 32 mmol/L MARJORIE Comment:[address], [address] Anion gap 11 2 - 15 mmol/L MARJORIE Comment:[address], [address] BUN 13 6 - 25 mg/dL MARJORIE Comment:[address], [address] Creatinine 0.60 0.60 - 1.10 mg/dL MARJORIE Comment:[address] [address] Glucose 82 70 - 199 mg/dL MARJORIE Comment: Interpretive Data Fasting glucose >/= 126 mg/dl is diagnostic for diabetes. Fasting is defined as no caloric intake for at least 8 hours. Fasting glucose between 100 mg/dl to 125 mg/dl is diagnostic of prediabetes. In a patient with classic symptoms of hyperglycemia or hyperglycemic crisis, a random glucose >/= 200 mg/dl is diagnostic for diabetes. In the absence of unequivocal hyperglycemia, results should be confirmed by repeat testing. The classification and Diagnosis of Diabetes Diabetes Care 2021; 46: S19-S40. Current interpretive data was last revised 2022. [facility], [address] [place] [address]., [address] Calcium 9.7 8.5 - 10.3 mg/dL MARJORIE Comment:[address] [address] Bilirubin, total 0.4 0.1 - 1.2 mg/dL MARJORIE Comment:[address] [address] Protein, pl 6.5 6.5 - 8.5 g/dL MARJORIE Comment:[address] [address] Albumin 3.3(L) 3.5 - 5.0 g/dL MARJORIE Comment:[address] [address] Alk phos 128 40 - 130 Units/L MARJORIE Comment:[address] [address] ALT 32 7 - 45 Units/L MARJORIE Comment:[address] [address] AST 33 10 - 45 Units/L MARJORIE Comment:[address] [address] Blood 10/15/2024 5:41 AM CDT 10/15/2024 7:09 AM CDT us Abisai Stover MD LAB BLOOD ORDERABLES Final R esult MARJORIE [address] Department [place] [address] * eGFR (10/13/2024 1:44 AM CDT) [facility] eGFR 90 >=60 mL/min/1. 73 m2 Comment: Interpretive Data Reference Interval Normal >/= 90 mL/min/1.73m2 Mildly decreased* 60 - 89 mL/min/1.73m2 Mildly to moderately decreased 45 - 59 mL/min/1.73m2 Moderately to severely decreased 30 - 44 mL/min/1.73m2 Severely decreased 15 - 29 mL/min/1.73m2 Kidney Failure < 15 mL/min/1.73m2 *Relative to young adult level Estimated glomerular filtration rate is determined by the 2020 CKD-EPI equation recommended by the National Kidney Foundation (A Unifying Approach to GFR Estimation: Recommendations of the NKF-ASK Task Force on Reassessing the Inclusion of Race in Diagnosing Kidney Disease, JASN 2020). The CKD-EPI equation should not be used for patients with unstable renal function and has not been validated in children and those over 70. Current interpretive data was last reviewed 2021. Blood 10/13/2024 1:44 AM CDT 10/13/2024 1:46 AM CDT Valerie Kendall MD LAB BLOOD ORDERABLES Fin al Result [address] Department [place] [address] * (ABNORMAL) Differential, auto (10/13/2024 1:44 AM CDT) [facility] Neutrophil abs 4.80 1.50 - 6.50 K/cumm Imm gran abs 0.11(H) 0.00 - 0.10 K/cumm [facility] Lymphocyte abs 1.35 0.80 - 3.30 K/cumm [facility] Monocyte abs 1.07(H) 0.20 - 0.80 K/cumm [facility] Eosinophil abs 0.39 0.00 - 0.50 K/cumm [facility] Basophil abs 0.06 0.00 - 0.10 K/cumm [facility] Neutrophil pct 61.6 % [facility] Comment: Interpretive Data Percent cell count reference ranges are not reported, since discordance with absolute values may lead to misinterpretation of CBC data. Current Interpretive Data was last revised on 2017. Imm gran pct 1.4 % [facility] Comment: Interpretive Data Percent cell count reference ranges are not reported, since discordance with absolute values may lead to misinterpretation of CBC data. Current Interpretive Data was last revised on 2017. Lymphocyte pct 17.4 % [facility] Comment: Interpretive Data Percent cell count reference ranges are not reported, since discordance with absolute values may lead to misinterpretation of CBC data. Current Interpretive Data was last revised on 2017. Monocyte pct 13.8 % [facility] Comment: Interpretive Data Percent cell count reference ranges are not reported, since discordance with absolute values may lead to misinterpretation of CBC data. Current Interpretive Data was last revised on 2017. Eosinophil pct 5.0 % [facility] Comment: Interpretive Data Percent cell count reference ranges are not reported, since discordance with absolute values may lead to misinterpretation of CBC data. Current Interpretive Data was last revised on 2017. Basophil pct 0.8 % [facility] Comment: Interpretive Data Percent cell count reference ranges are not reported, since discordance with absolute values may lead to misinterpretation of CBC data. Current Interpretive Data was last revised on 2017. Blood 10/13/2024 1:44 AM CDT 10/13/2024 1:46 AM CDT us Valerie Kendall MD LAB BLOOD ORDERABLES Fin al Result [facility] [address] [facility] Department [place] [address] * (ABNORMAL) CBC with auto differential (10/13/2024 1:44 AM CDT) WBC 7.78 3.80 - 9.90 K/cumm Hgb 10.7(L) 11.9 - 15.5 g/dL [facility] Hct 33.2(L) 35.6 - 45.5 % [facility] Plt 193 150 - 400 K/cumm [facility] MPV 9.1 9.1 - 12.3 fL [facility] RBC 3.36(L) 3.90 - 5.20 M/cumm [facility] MCV 98.8(H) 81.3 - 96.4 fL [facility] MCH 31.8 27.1 - 33.3 pg [facility] MCHC 32.2(L) 32.3 - 35.7 g/dL [facility] RDW CV 12.2 11.1 - 14.9 % [facility] RDW SD 44.1 35.7 - 48.1 fL [facility] NRBC abs 0.00 0.00 - 0.01 K/cumm [facility] Blood 10/13/2024 1:44 AM CDT 10/13/2024 1:46 AM CDT Valerie Kendall MD LAB BLOOD ORDERABLES Fin al Result Performing Organization Address [facility] de Phone Number [address] [place] [address] * (ABNORMAL) CRP (acute phase) (10/13/2024 1:44 AM CDT) [facility] CRP 146.0(H) <=10.0 mg/L Blood 10/13/2024 1:44 AM CDT 10/13/2024 1:46 AM CDT Valerie Kendall MD LAB BLOOD ORDERABLES Fin al Result Performing Organization Address [facility] de Phone Number [address] [place] [address] * (ABNORMAL) Comprehensive metabolic panel (10/13/2024 1:44 AM CDT) Pathologist [facility] Sodium 134(L) 135 - 145 mmol/L Potassium, pl 4.4 3.3 - 4.9 mmol/L [facility] Chloride 100 97 - 110 mmol/L [facility] CO2 25 22 - 32 mmol/L [facility] Anion gap 9 2 - 15 mmol/L [facility] BUN 14 6 - 25 mg/dL [facility] Creatinine 0.70 0.60 - 1.10 mg/dL [facility] Glucose 104 70 - 199 mg/dL [facility] Comment: Interpretive Data Fasting glucose >/= 126 mg/dl is diagnostic for diabetes. Fasting is defined as no caloric intake for at least 8 hours. Fasting glucose between 100 mg/dl to 125 mg/dl is diagnostic of prediabetes. In a patient with classic symptoms of hyperglycemia or hyperglycemic crisis, a random glucose >/= 200 mg/dl is diagnostic for diabetes. In the absence of unequivocal hyperglycemia, results should be confirmed by repeat testing. The classification and Diagnosis of Diabetes Diabetes Care 202; 46: S19-S40. Current interpretive data was last revised 2022. Calcium 9.0 8.5 - 10.3 mg/dL [facility] Bilirubin, total 0.4 0.1 - 1.2 mg/dL [facility] Protein, pl 5.8(L) 6.5 - 8.5 g/dL [facility] Albumin 2.9(L) 3.5 - 5.0 g/dL [facility] Alk phos 110 40 - 130 Units/L [facility] ALT 40 7 - 45 Units/L [facility] AST 37 10 - 45 Units/L [facility] Blood 10/13/2024 1:44 AM CDT 10/13/2024 1:46 AM CDT us Valerie Kendall MD LAB BLOOD ORDERABLES Fin al Result [facility] [address] [facility] Department [place] [address] * eGFR (10/11/2024 6:24 AM CDT) eGFR >90 >=60 mL/min/1. 73 m2 Comment: Interpretive Data Reference Interval Normal >/= 90 mL/min/1.73m2 Mildly decreased* 60 - 89 mL/min/1.73m2 Mildly to moderately decreased 45 - 59 mL/min/1.73m2 Moderately to severely decreased 30 - 44 mL/min/1.73m2 Severely decreased 15 - 29 mL/min/1.73m2 Kidney Failure < 15 mL/min/1.73m2 *Relative to young adult level Estimated glomerular filtration rate is determined by the 2020 CKD-EPI equation recommended by the National Kidney Foundation (A Unifying Approach to GFR Estimation: Recommendations of the NKF-ASK Task Force on Reassessing the Inclusion of Race in Diagnosing Kidney Disease, JASN 2020). The CKD-EPI equation should not be used for patients with unstable renal function and has not been validated in children and those over 70. Current interpretive data was last reviewed 2021. Blood 10/11/2024 6:24 AM CDT 10/11/2024 6:41 AM CDT Betty JUAREZ LAB BLOOD ORDERABLES Quynh ervin Result [facility] [address] [facility] Department [place] [address] * (ABNORMAL) CBC without differential (10/11/2024 6:24 AM CDT) [facility] WBC 8.11 3.80 - 9.90 K/cumm Hgb 10.9(L) 11.9 - 15.5 g/dL [facility] Hct 34.0(L) 35.6 - 45.5 % [facility] Plt 154 150 - 400 K/cumm [facility] MPV 9.8 9.1 - 12.3 fL [facility] RBC 3.37(L) 3.90 - 5.20 M/cumm [facility] MCV 100.9(H) 81.3 - 96.4 fL [facility] MCH 32.3 27.1 - 33.3 pg [facility] MCHC 32.1(L) 32.3 - 35.7 g/dL [facility] RDW CV 12.2 11.1 - 14.9 % [facility] RDW SD 45.7 35.7 - 48.1 fL [facility] NRBC abs 0.00 0.00 - 0.01 K/cumm [facility] Blood 10/11/2024 6:24 AM CDT 10/11/2024 6:37 AM CDT Betty JUAREZ LAB BLOOD ORDERABLES Quynh l Result MARJORIE [address] [facility] Department [place] [address] * (ABNORMAL) Basic metabolic panel (10/11/2024 6:24 AM CDT) [facility] Sodium 133(L) 135 - 145 mmol/L Potassium, pl 4.3 3.3 - 4.9 mmol/L [facility] Chloride 98 97 - 110 mmol/L [facility] CO2 28 22 - 32 mmol/L [facility] Anion gap 7 2 - 15 mmol/L [facility] BUN 10 6 - 25 mg/dL [facility] Creatinine 0.60 0.60 - 1.10 mg/dL [facility] Glucose 107 70 - 199 mg/dL [facility] Comment: Interpretive Data Fasting glucose >/= 126 mg/dl is diagnostic for diabetes. Fasting is defined as no caloric intake for at least 8 hours. Fasting glucose between 100 mg/dl to 125 mg/dl is diagnostic of prediabetes. In a patient with classic symptoms of hyperglycemia or hyperglycemic crisis, a random glucose >/= 200 mg/dl is diagnostic for diabetes. In the absence of unequivocal hyperglycemia, results should be confirmed by repeat testing. The classification and Diagnosis of Diabetes Diabetes Care 202; 46: S19-S40. Current interpretive data was last revised 2022. Calcium 8.7 8.5 - 10.3 mg/dL [facility] Blood 10/11/2024 6:24 AM CDT 10/11/2024 6:37 AM CDT Betty JUAREZ LAB BLOOD ORDERABLES Quynh l Result MARJORIE [address] [facility] Department [place] [address] * eGFR (10/10/2024 4:39 AM CDT) [facility] eGFR >90 >=60 mL/min/1. 73 m2 Comment: Interpretive Data Reference Interval Normal >/= 90 mL/min/1.73m2 Mildly decreased* 60 - 89 mL/min/1.73m2 Mildly to moderately decreased 45 - 59 mL/min/1.73m2 Moderately to severely decreased 30 - 44 mL/min/1.73m2 Severely decreased 15 - 29 mL/min/1.73m2 Kidney Failure < 15 mL/min/1.73m2 *Relative to young adult level Estimated glomerular filtration rate is determined by the 2020 CKD-EPI equation recommended by the National Kidney Foundation (A Unifying Approach to GFR Estimation: Recommendations of the NKF-ASK Task Force on Reassessing the Inclusion of Race in Diagnosing Kidney Disease, JASN 2020). The CKD-EPI equation should not be used for patients with unstable renal function and has not been validated in children and those over 70. Current interpretive data was last reviewed 2021. Blood 10/10/2024 4:39 AM CDT 10/10/2024 5:05 AM CDT Betty JUAREZ LAB BLOOD ORDERABLES Quynh l Result [facility] [address] [facility] [place] [address] * (ABNORMAL) CBC without differential (10/10/2024 4:39 AM CDT) WBC 9.40 3.80 - 9.90 K/cumm Hgb 11.1(L) 11.9 - 15.5 g/dL [facility] Hct 34.7(L) 35.6 - 45.5 % [facility] Plt 128(L) 150 - 400 K/cumm [facility] MPV 10.0 9.1 - 12.3 fL [facility] RBC 3.48(L) 3.90 - 5.20 M/cumm [facility] MCV 99.7(H) 81.3 - 96.4 fL [facility] MCH 31.9 27.1 - 33.3 pg [facility] MCHC 32.0(L) 32.3 - 35.7 g/dL [facility] RDW CV 12.1 11.1 - 14.9 % [facility] RDW SD 44.6 35.7 - 48.1 fL [facility] NRBC abs 0.00 0.00 - 0.01 K/cumm [facility] Blood 10/10/2024 4:39 AM CDT 10/10/2024 5:05 AM CDT Betty JUAREZ LAB BLOOD ORDERABLES Quynh l Result Performing Organization Address City/[facility] Co de Phone Number [facility] [address] [facility] [place] [address] * (ABNORMAL) Basic metabolic panel (10/10/2024 4:39 AM CDT) Sodium 134(L) 135 - 145 mmol/L Potassium, pl 3.9 3.3 - 4.9 mmol/L [facility] Chloride 100 97 - 110 mmol/L [facility] CO2 27 22 - 32 mmol/L [facility] Anion gap 7 2 - 15 mmol/L [facility] BUN 10 6 - 25 mg/dL [facility] Creatinine 0.63 0.60 - 1.10 mg/dL [facility] Glucose 104 70 - 199 mg/dL [facility] Comment: Interpretive Data Fasting glucose >/= 126 mg/dl is diagnostic for diabetes. Fasting is defined as no caloric intake for at least 8 hours. Fasting glucose between 100 mg/dl to 125 mg/dl is diagnostic of prediabetes. In a patient with classic symptoms of hyperglycemia or hyperglycemic crisis, a random glucose >/= 200 mg/dl is diagnostic for diabetes. In the absence of unequivocal hyperglycemia, results should be confirmed by repeat testing. The classification and Diagnosis of Diabetes Diabetes Care 202; 46: S19-S40. Current interpretive data was last revised 2022. Calcium 8.6 8.5 - 10.3 mg/dL [facility] Blood 10/10/2024 4:39 AM CDT 10/10/2024 5:05 AM CDT Betty JUAREZ LAB BLOOD ORDERABLES Quynh l Result Performing Organization Address [facility]/ZIP Co de Phone Number [facility] [address] [facility] [place] [address] * eGFR (10/09/2024 6:36 AM CDT) [facility] eGFR >90 >=60 mL/min/1. 73 m2 Comment: Interpretive Data Reference Interval Normal >/= 90 mL/min/1.73m2 Mildly decreased* 60 - 89 mL/min/1.73m2 Mildly to moderately decreased 45 - 59 mL/min/1.73m2 Moderately to severely decreased 30 - 44 mL/min/1.73m2 Severely decreased 15 - 29 mL/min/1.73m2 Kidney Failure < 15 mL/min/1.73m2 *Relative to young adult level Estimated glomerular filtration rate is determined by the 2020 CKD-EPI equation recommended by the National Kidney Foundation (A Unifying Approach to GFR Estimation: Recommendations of the NKF-ASK Task Force on Reassessing the Inclusion of Race in Diagnosing Kidney Disease, JASN 2020). The CKD-EPI equation should not be used for patients with unstable renal function and has not been validated in children and those over 70. Current interpretive data was last reviewed 2021. Blood 10/09/2024 6:36 AM CDT 10/09/2024 6:41 AM CDT us Betty JUAREZ LAB BLOOD ORDERABLES Quynh ervin Result [facility] Department [place] [address] * (ABNORMAL) CBC without differential (10/09/2024 6:36 AM CDT) [facility] WBC 12.22(H) 3.80 - 9.90 K/cumm Hgb 11.9 11.9 - 15.5 g/dL [facility] Hct 36.8 35.6 - 45.5 % [facility] Plt 131(L) 150 - 400 K/cumm [facility] MPV 9.4 9.1 - 12.3 fL [facility] RBC 3.75(L) 3.90 - 5.20 M/cumm [facility] MCV 98.1(H) 81.3 - 96.4 fL [facility] MCH 31.7 27.1 - 33.3 pg [facility] MCHC 32.3 32.3 - 35.7 g/dL [facility] RDW CV 12.3 11.1 - 14.9 % [facility] RDW SD 44.7 35.7 - 48.1 fL [facility] NRBC abs 0.00 0.00 - 0.01 K/cumm [facility] Blood 10/09/2024 6:36 AM CDT 10/09/2024 6:41 AM CDT us Betty JUAREZ LAB BLOOD ORDERABLES Quynh l Result [facility] [address] [facility] Department [place] [address] * (ABNORMAL) Basic metabolic panel (10/09/2024 6:36 AM CDT) Sodium 134(L) 135 - 145 mmol/L Potassium, pl 4.2 3.3 - 4.9 mmol/L [facility] Chloride 99 97 - 110 mmol/L [facility] CO2 25 22 - 32 mmol/L [facility] Anion gap 10 2 - 15 mmol/L [facility] BUN 8 6 - 25 mg/dL [facility] Creatinine 0.61 0.60 - 1.10 mg/dL [facility] Glucose 111 70 - 199 mg/dL [facility] Comment: Interpretive Data Fasting glucose >/= 126 mg/dl is diagnostic for diabetes. Fasting is defined as no caloric intake for at least 8 hours. Fasting glucose between 100 mg/dl to 125 mg/dl is diagnostic of prediabetes. In a patient with classic symptoms of hyperglycemia or hyperglycemic crisis, a random glucose >/= 200 mg/dl is diagnostic for diabetes. In the absence of unequivocal hyperglycemia, results should be confirmed by repeat testing. The classification and Diagnosis of Diabetes Diabetes Care 2021; 46: S19-S40. Current interpretive data was last revised 2022. Calcium 8.8 8.5 - 10.3 mg/dL [facility] Blood 10/09/2024 6:36 AM CDT 10/09/2024 6:41 AM CDT Betty JUAREZ LAB BLOOD ORDERABLES Quynh l Result Performing Organization Address [facility] Co de Phone Number [address] [address] * eGFR (10/08/2024 3:25 AM CDT) Pathologist [facility] eGFR 87 >=60 mL/min/1. 73 m2 Comment: Interpretive Data Reference Interval Normal >/= 90 mL/min/1.73m2 Mildly decreased* 60 - 89 mL/min/1.73m2 Mildly to moderately decreased 45 - 59 mL/min/1.73m2 Moderately to severely decreased 30 - 44 mL/min/1.73m2 Severely decreased 15 - 29 mL/min/1.73m2 Kidney Failure < 15 mL/min/1.73m2 *Relative to young adult level Estimated glomerular filtration rate is determined by the 2020 CKD-EPI equation recommended by the National Kidney Foundation (A Unifying Approach to GFR Estimation: Recommendations of the NKF-ASK Task Force on Reassessing the Inclusion of Race in Diagnosing Kidney Disease, JASN 2020). The CKD-EPI equation should not be used for patients with unstable renal function and has not been validated in children and those over 70. Current interpretive data was last reviewed 2021. Blood 10/08/2024 3:25 AM CDT 10/08/2024 4:06 AM CDT Betty JUAREZ LAB BLOOD ORDERABLES Quynh l Result Performing Organization Address [facility]/ZIP Co de Phone Number [address] [place] [address] * (ABNORMAL) CBC without differential (10/08/2024 3:25 AM CDT) [facility] WBC 10.34(H) 3.80 - 9.90 K/cumm Hgb 12.2 11.9 - 15.5 g/dL [facility] Hct 37.2 35.6 - 45.5 % [facility] Plt 125(L) 150 - 400 K/cumm [facility] MPV 9.5 9.1 - 12.3 fL [facility] RBC 3.70(L) 3.90 - 5.20 M/cumm [facility] MCV 100.5(H) 81.3 - 96.4 fL [facility] MCH 33.0 27.1 - 33.3 pg [facility] MCHC 32.8 32.3 - 35.7 g/dL [facility] RDW CV 12.4 11.1 - 14.9 % [facility] RDW SD 46.4 35.7 - 48.1 fL [facility] NRBC abs 0.00 0.00 - 0.01 K/cumm [facility] Blood 10/08/2024 3:25 AM CDT 10/08/2024 4:06 AM CDT Betty JUAREZ LAB BLOOD ORDERABLES Quynh ervin Result [facility] [address] [facility] Department [place] [address] * Basic metabolic panel (10/08/2024 3:25 AM CDT) Sodium 137 135 - 145 mmol/L Potassium, pl 4.7 3.3 - 4.9 mmol/L [facility] Comment:Hemolyzed; Potassium value may be falsely elevated by as much as 1.0 mmol/L. Suggest redraw and reanalysis. Chloride 103 97 - 110 mmol/L [facility] CO2 26 22 - 32 mmol/L [facility] Anion gap 8 2 - 15 mmol/L [facility] BUN 12 6 - 25 mg/dL [facility] Creatinine 0.72 0.60 - 1.10 mg/dL [facility] Glucose 91 70 - 199 mg/dL [facility] Comment: Interpretive Data Fasting glucose >/= 126 mg/dl is diagnostic for diabetes. Fasting is defined as no caloric intake for at least 8 hours. Fasting glucose between 100 mg/dl to 125 mg/dl is diagnostic of prediabetes. In a patient with classic symptoms of hyperglycemia or hyperglycemic crisis, a random glucose >/= 200 mg/dl is diagnostic for diabetes. In the absence of unequivocal hyperglycemia, results should be confirmed by repeat testing. The classification and Diagnosis of Diabetes Diabetes Care 202; 46: S19-S40. Current interpretive data was last revised 2022. Calcium 8.7 8.5 - 10.3 mg/dL [facility] Blood 10/08/2024 3:25 AM CDT 10/08/2024 4:06 AM CDT us Betty JUAREZ LAB BLOOD ORDERABLES Quynh l Result Performing Organization Address City/[facility] Co de Phone Number [address] [place] [address] * POCT glucose (10/07/2024 11:30 AM CDT) Glucose, POC 116 70 - 199 mg/dL Glucose comment 1 RN/MD Notified [facility] Blood 10/07/2024 11:3 0 AM CDT 10/07/2024 11:30 AM CDT us Adelfo Marsh MD LAB POCT ORDERABLES - DEVICE Final Result Performing Organization Address [facility] Co de Phone Number [address] [place] [address] * XR Knee Right 1 or 2 View (10/07/2024 10:16 AM CDT) Anatomical Region Laterality Modality Lower Extremities, Knee Right Computed Radiography 10/07/2024 10:2 2 AM CDT Narrative 10/07/2024 10:24 AM CDT EXAM DESCRIPTION: XR KNEE RIGHT 1 OR 2 VIEWS REASON FOR STUDY: Post-op Knee replacement Post op right knee replacement TECHNIQUE: Two views right knee. COMPARISON: 03/14/2023. FINDINGS: Postsurgical changes are seen from right total knee arthroplasty, the components are in expected alignment. There is a patellar spacer. Anterior skin precious. Foci of gas present in the soft tissues. IMPRESSION: Expected postsurgical changes from right total knee arthroplasty. THIS IS AN ELECTRONICALLY VERIFIED FINAL REPORT 10/07/2024 10:24 AM - Electronically signed by Blake Rosas M.D. T: Report ID: [id number] Reading Location: [id number] Procedure Note Blake Rosas Jr., MD - 10/07/2024 EXAM DESCRIPTION: XR KNEE RIGHT 1 OR 2 VIEWS REASON FOR STUDY: Post-op Knee replacement Post op right knee replacement TECHNIQUE: Two views right knee. COMPARISON: 03/14/2023. FINDINGS: Postsurgical changes are seen from right total kneearthroplasty, the components are in expected alignment. There is a patellar spacer. Anterior skin precious. Foci of gas present in the soft tissues. IMPRESSION: Expected postsurgical changes from right total kneearthroplasty. THIS IS AN ELECTRONICALLY VERIFIED FINAL REPORT 10/07/2024 10:24 AM - Electronically signed by Blake Rosas M.D. T: Report ID: [id number] Reading Location: [id number] us Betty JUAREZ IMG XR PROCEDURES Final R esult * POCUS INJ SCIATIC NERVE (10/07/2024 9:31 AM CDT) Narrative [facility] - 10/07/2024 9:31 AM CDT This procedure was performed and interpreted by the provider. Please refer to the provider's procedure/OR operative note for results. us Adelfo Marsh MD POCUS ORDERABLES Final Result [facility] * POCUS INJ FEMORAL NERVE (10/07/2024 9:31 AM CDT) Narrative [facility] - 10/07/2024 9:31 AM CDT This procedure was performed and interpreted by the provider. Please refer to the provider's procedure/OR operative note for results. us Adelfo Marsh MD POCUS ORDERABLES Final Result [facility] * IN AN ELECTIVE ENDOTRACHEAL AIRWAY, IN AN PROCEDURE PLACEHOLDER (10/07/2024 7:45 AM CDT) Narrative Angelica Almazan CRNA - 10/07/2024 7:45 AM CDT Angelica Almazan CRNA 10/07/2024 7:46 AM Airway Patient location: OR Urgency: elective Indications for airway management: anesthesia Difficult airway: no Staff: Supervising provider: Truman Noble MD Placed by: AIR TECHNICIAN: Angelica Almazan CRNA Emergent airway documentation: Risks and benefits discussed: yes Consent obtained: yes Consent given by: patient Airway prep: Preoxygenated: yes Patient position: sniffing MILS maintained throughout: yes Mask difficulty assessment: 2 - vent by mask + OA or adjuvant Spontaneous ventilation during airway: absent Sedation level during airway: deep Final airway details: Final airway type: endotracheal airway Tube type: ETT ETT size: 7.0 mm Cuffed: yes Technique used for successful ETT placement: direct laryngoscopy Devices/Methods used in placement: intubating stylet Insertion site: oral Blade type: Mendez Blade size: 3 Cormack-Lehane (direct): grade I - full view of glottis Cuff volume: 7 mL Cuff inflated with: air ETT to lips: 22 cm Placement verified by: auscultation and CO2 detection Airway secured with: silk tape Number of attempts: 1 us Truman Noble MD ANESTHESIA ORDERABLES Final R esult * ABO/Rh (10/07/2024 6:23 AM CDT) ABO/Rh B Positive Blood 10/07/2024 6:23 AM CDT 10/07/2024 6:26 AM CDT us Adelfo Marsh MD LAB BLOOD BANK TEST OR DERABLES Final Result MARJORIE [facility] [facility] Department [place] [address] * Antibody screen (10/07/2024 6:23 AM CDT) Tadeo, indirect, Gel Interpretation Negative ABSC Blood 10/07/2024 6:23 AM CDT 10/07/2024 6:26 AM CDT us Adelfo Marsh MD LAB BLOOD BANK TEST OR DERABLES Final Result Performing Organization Address City/[facility]/ZIP Co de Phone Number MARJORIE [address] [place] [address] * eGFR (09/27/2024 7:49 AM CDT) eGFR 84 >=60 mL/min/1. 73 m2 Comment: Interpretive Data Reference Interval Normal >/= 90 mL/min/1.73m2 Mildly decreased* 60 - 89 mL/min/1.73m2 Mildly to moderately decreased 45 - 59 mL/min/1.73m2 Moderately to severely decreased 30 - 44 mL/min/1.73m2 Severely decreased 15 - 29 mL/min/1.73m2 Kidney Failure < 15 mL/min/1.73m2 *Relative to young adult level Estimated glomerular filtration rate is determined by the 2020 CKD-EPI equation recommended by the National Kidney Foundation (A Unifying Approach to GFR Estimation: Recommendations of the NKF-ASK Task Force on Reassessing the Inclusion of Race in Diagnosing Kidney Disease, JASN 2020). The CKD-EPI equation should not be used for patients with unstable renal function and has not been validated in children and those over 70. Current interpretive data was last reviewed 2021. Testing performed by: [facility], [address] [place] [address]., [address] Blood 09/27/2024 7:49 AM CDT 09/27/2024 8:22 AM CDT us Michael Quiros MD LAB BLOOD ORDERABLES Final R esult Performing Organization Address City/[facility]/ZIP Co de Phone Number MARJORIE [address] [place] [address] * Basic metabolic panel (09/27/2024 7:49 AM CDT) Sodium 139 135 - 145 mmol/L Comment:Testing performed by : [address] [address] Potassium, pl 3.9 3.3 - 4.9 mmol/L MARJORIE Comment:Testing performed by : [address] [address] Chloride 104 97 - 110 mmol/L MARJORIE Comment:Testing performed by : [address] [address] CO2 26 22 - 32 mmol/L MARJORIE Comment:Testing performed by : [address] [address] Anion gap 9 2 - 15 mmol/L MARJORIE Comment:Testing performed by : [address] [address] BUN 24 6 - 25 mg/dL MARJORIE Comment:Testing performed by : [address] [address] Creatinine 0.74 0.60 - 1.10 mg/dL [facility] Comment:Testing performed by : [address] [address] Glucose 86 70 - 199 mg/dL [facility] Comment: Interpretive Data Fasting glucose >/= 126 mg/dl is diagnostic for diabetes. Fasting is defined as no caloric intake for at least 8 hours. Fasting glucose between 100 mg/dl to 125 mg/dl is diagnostic of prediabetes. In a patient with classic symptoms of hyperglycemia or hyperglycemic crisis, a random glucose >/= 200 mg/dl is diagnostic for diabetes. In the absence of unequivocal hyperglycemia, results should be confirmed by repeat testing. The classification and Diagnosis of Diabetes Diabetes Care 2022; 46: S19-S40. Current interpretive data was last revised 2022. Testing performed by: [address] [address] Calcium 9.5 8.5 - 10.3 mg/dL MARJORIE Comment:Testing performed by : [address] [address] Blood 09/27/2024 7:49 AM CDT 09/27/2024 8:22 AM CDT us Michael Quiros MD LAB BLOOD ORDERABLES Final R esult Performing Organization Address City/[facility]/ZIP Co de Phone Number [facility] [address] [facility] Department [place] [address] * ECG 12 lead (09/17/2024 4:21 PM CDT) Ventricular Rate EKG/Min 73 BPM [facility] Atrial Rate 84 BPM [facility] QRS-Interval (MSEC) 90 ms [facility] QT-Interval (MSEC) 236 ms [facility] QTc 259 ms [facility] R Jasper 74 degrees [facility] T Jasper -87 degrees [facility] Diagnosis Atrial fibrillation with frequent ventricular-pac ed complexes Nonspecific ST and T wave abnormality Abnormal ECG When compared with ECG of 17-SEP-2024 10:03, Electronic ventricular pacemaker has replaced Atrial fibrillation Confirmed by JUAN DANIEL RIVERA M.D. ([id number]) on 09/20/2024 11:55:32 PM [facility] 09/17/2024 4:21 PM CDT 09/20/2024 11:55 PM CDT us Shivani Blanco NP ECG ORDERABLES Quynh l Result Performing Organization Address City/[facility]/ZIP Co de Phone Number [facility] * Troponin T high-sensitivity 2-hour (09/17/2024 12:14 PM CDT) Pathologist [facility] Trop T hs 10 <=14 ng/L Comment: Interpretive Data For further hscTnT resources including the diagnostic algorithm and an aid in interpretation, copy and paste this link: https://nrl.testcatalog.org/show/hsTrop Current Interpretive Data last revised 2020. Trop T hs delta -3 ng/L [facility] Trop T hs interp Insignificant [facility] Blood 09/17/2024 12:1 4 PM CDT 09/17/2024 12:17 PM CDT Macey JUAREZ LAB BLOOD ORDERABLES Final Resul t Performing Organization Address City/[facility]/ZIP Co de Phone Number MARJORIE [address] [address] * Magnesium (09/17/2024 12:14 PM CDT) Magnesium 1.9 1.4 - 2.5 mg/dL Blood 09/17/2024 12:1 4 PM CDT 09/17/2024 12:17 PM CDT Maria G Oliva NP LAB BLOOD ORDERABLES Final Result Performing Organization Address [facility] de Phone Number MARJORIE [address] [address] * XR Chest 1 Vw Portable (if patient condition/safety warrant portable) (09/17/2024 10:40 AM CDT) Anatomical Region Laterality Modality Body, Chest N/A Computed Radiogr aphy 09/17/2024 11:4 1 AM CDT Narrative 09/17/2024 11:42 AM CDT EXAM DESCRIPTION: XR CHEST 1 VIEW REASON FOR STUDY: chest pain Pt onset chest pain this morning, hx of A/Fib Pt was pre testing for knee surgery TECHNIQUE: AP portable upright radiographic view(s) of the chest. COMPARISON: 07/17/2022 and 04/30/2021 FINDINGS: LUNGS: No focal opacity, pleural effusion, or pneumothorax. HEART/MEDIASTINUM: Cardiac silhouette is borderline enlarged likely magnified by technique. Pulmonary vascularity within normal limits. LINES/TUBES: Right-sided pacemaker, stable. BONES: No acute osseous abnormality. IMPRESSION: No acute cardiopulmonary abnormality. THIS IS AN ELECTRONICALLY VERIFIED FINAL REPORT 09/17/2024 11:42 AM - Electronically signed by Maryam Rose M.D. TW T: Report ID: [id number] Reading Location: [id number] Procedure Note Maryam Rose MD - 09/17/2024 EXAM DESCRIPTION: XR CHEST 1 VIEW REASON FOR STUDY: chest pain Pt onset chest pain this morning, hx of A/Fib Pt was pre testing for knee surgery TECHNIQUE: AP portable upright radiographic view(s) of the chest. COMPARISON: 07/17/2022 and 04/30/2021 FINDINGS: LUNGS: No focal opacity, pleural effusion, or pneumothorax. HEART/MEDIASTINUM: Cardiac silhouette is borderline enlarged likelymagnified by technique. Pulmonary vascularity within normal limits. LINES/TUBES: Right-sided pacemaker, stable. BONES: No acute osseous abnormality. IMPRESSION: No acute cardiopulmonary abnormality. THIS IS AN ELECTRONICALLY VERIFIED FINAL REPORT 09/17/2024 11:42 AM - Electronically signed by Maryam Rose M.D. TW T: Report ID: [id number] Reading Location: [id number] Flakita Valverde MD IMG XR PROCEDURES Final Result * Protime-INR (09/17/2024 10:25 AM CDT) PT 13.7 12.0 - 14.6 sec INR 1.0 0.9 - 1.2 [facility] Comment: Ref Range High Interpretive data Oral anticoagulant therapeutic ranges: Venous thromboembolism prophylaxis or treatment: 2.0-3.0 CARDIOLOGY Standard range: 2.0-3.0 High-intensity range: 2.5-3.5 Refer to indication-specific guidelines for appropriate target ranges for prosthetic heart valve replacement. Current interpretive data was last revised on 2019. Blood 09/17/2024 10:2 5 AM CDT 09/17/2024 10:35 AM CDT us Flakita Valverde MD LAB BLOOD ORDERABLES Final Res ult [facility] [address] [facility] Department [place] [address] * Troponin T high-sensitivity series (baseline, 2hr, 4hr, 6hr) (09/17/2024 10:18 AM CDT) Pathologist [facility] Trop T hs 13 <=14 ng/L Comment: Interpretive Data For further hscTnT resources including the diagnostic algorithm and an aid in interpretation, copy and paste this link: https://nrl.testcatalog.org/show/hsTrop Current Interpretive Data last revised 2020. Blood 09/17/2024 10:1 8 AM CDT 09/17/2024 10:30 AM CDT Flakita Valverde MD LAB BLOOD ORDERABLES Final Res ult Performing Organization Address City/[facility] Co de Phone Number MARJORIE [address] [facility] Department [place] [address] * ECG 12 lead (09/17/2024 10:03 AM CDT) [facility] Ventricular Rate EKG/Min 104 BPM [facility] Atrial Rate 115 BPM [facility] QRS-Interval (MSEC) 82 ms [facility] QT-Interval (MSEC) 296 ms [facility] QTc 389 ms [facility] R Jasper 84 degrees [facility] T Jasper -72 degrees [facility] Diagnosis Atrial fibrillation with rapid ventricular response Nonspecific ST and T wave abnormality Abnormal ECG When compared with ECG of 17-JUL-2022 16:31 Atrial fibrillation has replaced Electronic ventricular pacemaker Confirmed by OBDULIO CESPEDES M.D. ([id number]) on 09/17/2024 1:01:40 PM [facility] 09/17/2024 10:0 3 AM CDT 09/17/2024 1:01 PM CDT Flakita Valverde MD ECG ORDERABLES Final Result Performing Organization Address [facility] Co de Phone Number [facility] * eGFR (09/17/2024 9:28 AM CDT) Pathologist [facility] eGFR 84 >=60 mL/min/1. 73 m2 Comment: Interpretive Data Reference Interval Normal >/= 90 mL/min/1.73m2 Mildly decreased* 60 - 89 mL/min/1.73m2 Mildly to moderately decreased 45 - 59 mL/min/1.73m2 Moderately to severely decreased 30 - 44 mL/min/1.73m2 Severely decreased 15 - 29 mL/min/1.73m2 Kidney Failure < 15 mL/min/1.73m2 *Relative to young adult level Estimated glomerular filtration rate is determined by the 2020 CKD-EPI equation recommended by the National Kidney Foundation (A Unifying Approach to GFR Estimation: Recommendations of the NKF-ASK Task Force on Reassessing the Inclusion of Race in Diagnosing Kidney Disease, JASN 2020). The CKD-EPI equation should not be used for patients with unstable renal function and has not been validated in children and those over 70. Current interpretive data was last reviewed 2021. Blood 09/17/2024 9:28 AM CDT 09/17/2024 9:41 AM CDT us Adelfo Marsh MD LAB BLOOD ORDERABLES F inal Result [place] [id number] [facility] [place] [address] * (ABNORMAL) Differential, auto (09/17/2024 9:28 AM CDT) Neutrophil abs 6.00 1.50 - 6.50 K/cumm Imm gran abs 0.06 0.00 - 0.10 K/cumm [facility] Lymphocyte abs 1.58 0.80 - 3.30 K/cumm [facility] Monocyte abs 1.11(H) 0.20 - 0.80 K/cumm [facility] Eosinophil abs 0.21 0.00 - 0.50 K/cumm [facility] Basophil abs 0.09 0.00 - 0.10 K/cumm [facility] Neutrophil pct 66.2 % [facility] Comment: Interpretive Data Percent cell count reference ranges are not reported, since discordance with absolute values may lead to misinterpretation of CBC data. Current Interpretive Data was last revised on 2017. Imm gran pct 0.7 % [facility] Comment: Interpretive Data Percent cell count reference ranges are not reported, since discordance with absolute values may lead to misinterpretation of CBC data. Current Interpretive Data was last revised on 2017. Lymphocyte pct 17.5 % [facility] Comment: Interpretive Data Percent cell count reference ranges are not reported, since discordance with absolute values may lead to misinterpretation of CBC data. Current Interpretive Data was last revised on 2017. Monocyte pct 12.3 % [facility] Comment: Interpretive Data Percent cell count reference ranges are not reported, since discordance with absolute values may lead to misinterpretation of CBC data. Current Interpretive Data was last revised on 2017. Eosinophil pct 2.3 % [facility] Comment: Interpretive Data Percent cell count reference ranges are not reported, since discordance with absolute values may lead to misinterpretation of CBC data. Current Interpretive Data was last revised on 2017. Basophil pct 1.0 % [facility] Comment: Interpretive Data Percent cell count reference ranges are not reported, since discordance with absolute values may lead to misinterpretation of CBC data. Current Interpretive Data was last revised on 2017. Blood 09/17/2024 9:28 AM CDT 09/17/2024 9:41 AM CDT Adelfo Marsh MD LAB BLOOD ORDERABLES F inal Result MARJORIE [address] [facility] [place] [address] * Infection Prevention MRSA Only (Staphylococcus aureus) PCR Nasal (09/17/2024 9:28 AM CDT) PCR Scrn, Methicillin resistant Staphylococcus aureus (MRSA) Not Detected Not Detected Comment: Interpretive Data Testing performed using Nucleic Acid Amplification with the [employer] Xpert MRSA NxG Assay. This assay detects target DNA from mecA, mecC and the SCCmec insertion site of Staphylococcus aureus using Real-Time PCR and has been cleared by the FDA. Performance characteristics have been verified by the [facility]. Current Interpretive Data was last revised on 2023 Nasal 09/17/2024 9:28 AM CDT 09/17/2024 9:41 AM CDT Adelfo Marsh MD LAB MICROBIOLOGY - GEN ERAL ORDERABLES Final Result Performing Organization Address [facility] Co de Phone Number [facility] [address] [place] [address] * (ABNORMAL) CBC with auto differential (09/17/2024 9:28 AM CDT) [facility] WBC 9.05 3.80 - 9.90 K/cumm Hgb 13.9 11.9 - 15.5 g/dL [facility] Hct 42.8 35.6 - 45.5 % [facility] Plt 184 150 - 400 K/cumm [facility] MPV 9.2 9.1 - 12.3 fL [facility] RBC 4.42 3.90 - 5.20 M/cumm [facility] MCV 96.8(H) 81.3 - 96.4 fL [facility] MCH 31.4 27.1 - 33.3 pg [facility] MCHC 32.5 32.3 - 35.7 g/dL [facility] RDW CV 12.7 11.1 - 14.9 % [facility] RDW SD 46.0 35.7 - 48.1 fL [facility] NRBC abs 0.00 0.00 - 0.01 K/cumm [facility] Blood 09/17/2024 9:28 AM CDT 09/17/2024 9:41 AM CDT Adelfo Marsh MD LAB BLOOD ORDERABLES F inal Result Performing Organization Address City/[facility]/ZIP Co de Phone Number [address] [place] [address] * ABO/Rh (09/17/2024 9:28 AM CDT) [facility] ABO/Rh B Positive Blood 09/17/2024 9:28 AM CDT 09/17/2024 9:41 AM CDT Narrative [facility] - 09/17/2024 10:28 AM CDT Is this test being ordered in advance for a procedure?->Yes Expected date of procedure:->09/28/24 Has the patient been transfused in the past 3 months?->No Has the patient been in the past 3 months?->No Adelfo Marsh MD LAB BLOOD BANK TEST OR DERABLES Final Result Performing Organization Address [facility] de Phone Number [address] [address] * Antibody screen (09/17/2024 9:28 AM CDT) [facility] Tadeo, indirect, Gel Interpretation Negative ABSC Blood 09/17/2024 9:28 AM CDT 09/17/2024 9:41 AM CDT Narrative [facility] - 09/17/2024 10:28 AM CDT Is this test being ordered in advance for a procedure?->Yes Expected date of procedure:->09/28/24 Has the patient been transfused in the past 3 months?->No Has the patient been in the past 3 months?->No Adelfo Marsh MD LAB BLOOD BANK TEST OR DERABLES Final Result Performing Organization Address [facility] de Phone Number [address] [address] * Comprehensive metabolic panel (09/17/2024 9:28 AM CDT) [facility] Sodium 138 135 - 145 mmol/L Potassium, pl 3.8 3.3 - 4.9 mmol/L [facility] Chloride 102 97 - 110 mmol/L [facility] CO2 25 22 - 32 mmol/L [facility] Anion gap 11 2 - 15 mmol/L [facility] BUN 19 6 - 25 mg/dL [facility] Creatinine 0.74 0.60 - 1.10 mg/dL [facility] Glucose 95 70 - 199 mg/dL [facility] Comment: Interpretive Data Fasting glucose >/= 126 mg/dl is diagnostic for diabetes. Fasting is defined as no caloric intake for at least 8 hours. Fasting glucose between 100 mg/dl to 125 mg/dl is diagnostic of prediabetes. In a patient with classic symptoms of hyperglycemia or hyperglycemic crisis, a random glucose >/= 200 mg/dl is diagnostic for diabetes. In the absence of unequivocal hyperglycemia, results should be confirmed by repeat testing. The classification and Diagnosis of Diabetes Diabetes Care 2021; 46: S19-S40. Current interpretive data was last revised 2022. Calcium 9.3 8.5 - 10.3 mg/dL [facility] Bilirubin, total 0.3 0.1 - 1.2 mg/dL [facility] Protein, pl 6.5 6.5 - 8.5 g/dL [facility] Albumin 3.6 3.5 - 5.0 g/dL [facility] Alk phos 121 40 - 130 Units/L [facility] ALT 18 7 - 45 Units/L [facility] AST 27 10 - 45 Units/L [facility] Blood 09/17/2024 9:28 AM CDT 09/17/2024 9:41 AM CDT Adelfo Marsh MD LAB BLOOD ORDERABLES F inal Result [facility] [address] [facility] [place] [address] * (ABNORMAL) Hepatitis panel, acute (07/18/2022 6:04 AM MAMMOGRAPHY SUPERVISOR) Hep A IgM Nonreactive Nonreactive [facility] Comment: Interpretive Data: If Hep A IgM Ab is reported as Equivocal, a new sample should be drawn in two weeks for testing. Current interpretive data was last revised on 19. Hep B core IgM Nonreactive Nonreactive [facility] Comment: Interpretive Data If HepB Core IgM Ab is reported as Equivocal, a new sample should be drawn in two weeks for testing. Current interpretive data was last revised on 19. Hep C Ab Reactive(A) Nonreactive [facility] Comment: Interpretive Data Nonreactive: Antibodies to HCV not detected. Does NOT exclude the possibility of recent exposure to HCV. Equivocal: Equivocal for HCV antibodies. Supplemental molecular testing will be automatically performed to determine infection status in accordance with current CDC screening recommendations. Reactive: Positive for HCV antibodies. This may represent current or past HCV infection. Supplemental molecular testing will be automatically performed to determine current infection status in accordance with current CDC screening recommendations. Interpretive data was last revised on 2019. HepBsAg Nonreactive Nonreactive MARJORIE SUTHERLAND Blood 07/18/2022 6:04 AM MAMMOGRAPHY SUPERVISOR 07/18/2022 6:34 AM MAMMOGRAPHY SUPERVISOR Angi Castillo DO LAB MICROBIOLOGY - GENERAL OR DERABLES Final Result MARJORIE SUTHERLAND [address] [facility] [place] [address] * Screening Mammogram Bilateral [place] (04/29/2018 10:09 AM MAMMOGRAPHY SUPERVISOR) Anatomical Region Laterality Modality Breast Bilateral Mammography 04/29/2018 10:0 9 AM MAMMOGRAPHY SUPERVISOR Impressions 05/06/2018 4:06 PM MAMMOGRAPHY SUPERVISOR BI-RAD 2 BENIGN There is no mammographic evidence of malignancy. A 1 year screening mammogram is recommended. The patient has been or will be contacted. The patient will be entered into a reminder system with a target due date of 1 year for her next screening exam. Electronically signed by: Dr. Gregory gama/samantha:05/06/2018 16:05:36 Product Developer: Shoshana HARRINGTON)(Melissa), [facility] letter sent: Normal Exam Reading location: [facility] BI-RADS: 2 Benign [EOD] Narrative 05/06/2018 4:06 PM MAMMOGRAPHY SUPERVISOR - MG BILATERAL DIGITAL SCREENING MAMMOGRAM 3D/2D WITH MEDIOLATERAL OBLIQUE CRANIOCAUDAL: 04/29/2018 The study was acquired using full field digital technology and interpreted from soft copy. 2D digital mammographic views, as well as 3D digital tomosynthesis were performed in the CC and MLO projections. CLINICAL: Routine mammogram. Patient denies any problems. Sister with breast cancer. No personal history of breast cancer. COMPARISONS: Comparison is made to exams dated: 05/16/2015 mammogram and 08/27/2016 mammogram - [facility]. BREAST TISSUE: There are scattered areas of fibroglandular density. FINDINGS: There are benign calcifications in both breasts. No significant masses, calcifications, or other findings are seen in either breast. There has been no significant interval change. Procedure Note Provider, MD Krzysztof - 10/24/2020 - MG BILATERAL DIGITAL SCREENING MAMMOGRAM 3D/2D WITH MEDIOLATERAL OBLIQUE CRANIOCAUDAL: 04/29/2018 The study was acquired using full field digital technology and interpretedfrom soft copy. 2D digital mammographic views, as well as 3D digital tomosynthesis were performed in the CC and MLO projections. CLINICAL: Routine mammogram. Patient denies any problems. Sister withbreast cancer. No personal history of breast cancer. COMPARISONS: Comparison is made to exams dated: 05/16/2015 mammogram and 08/27/2016 mammogram - [facility]. BREAST TISSUE: There are scattered areas of fibroglandular density. FINDINGS: There are benign calcifications in both breasts. No significant masses, calcifications, or other findings are seen ineither breast. There has been no significant interval change. IMPRESSION: BI-RAD 2 BENIGN There is no mammographic evidence of malignancy. A 1 year screeningmammogram is recommended. The patient has been or will be contacted. The patient will be entered into a reminder system with a target due dateof 1 year for her next screening exam. Electronically signed by: Dr. Gregory Horner M.D. ca/samantha:05/06/2018 16:05:36 Product Developer: Shoshana HARRINGTON)(Melissa), [facility] letter sent: Normal Exam Reading location: [facility] BI-RADS: 2 Benign [EOD] Parker Jean MD IMG MAMMO PROCEDURES Final Res ult from Last 3 Months or Most Recently Relevant to Health Maintenance Additional Health Concerns Infection Onset Date Last Indicated COVID19 10/21/2024 10/21/[address] [place] [address] MEDICARE [facility] MEDICARE [facility] Advance Directives For more information, please contact: [phone] Documents on File Type Date Recorded Patient Miller Head Wet Process Expl anation ADVANCE DIRECTIVE 10/13/2024 10:26 AM POLST - Phys Order for PT Preferences Power of Hiv Cts Specialist 10/07/2024 5:19 AM * LIMITED - No CPR (Latest Code Status on File) Date Activated Date Inactivated Comments 10/24/2024 6:40 PM 10/29/2024 6:54 PM Question Answer Comments Provide aggressive medical m anagement before a full cardiopulmonary arrest occurs. Use antibiotics, IV Fluids, and medical treatment unless specifically selected below: No intubationNo cardioversionNo internal / external pacemaker Discussed with the following attending physician: . She does not wish to be resuscitated in the event she suffers respiratory or cardiac arrest. She wants to go naturally. She is agreeable to sign POLST form * Full Code Date Activated Date Inactivated Comments 10/21/2024 5:15 PM 10/24/2024 6:40 PM * Full Code Date Activated Date Inactivated Comments 10/07/2024 11:17 AM 10/11/2024 3:53 PM * Full Code Date Activated Date Inactivated Comments 04/02/2023 7:58 PM 04/10/2023 11:09 PM * Full Code Date Activated Date Inactivated Comments 07/17/2022 1:23 PM 07/19/2022 8:09 PM Care Teams Engine Turner Relationship Specialty Start Date End Date Harry Jorgensen MD PCP - General 09/06/16 Michael Quiros MD [address] [place] [address] Referring Physician Interventional Cardiology 09/17/24 Mohan Rico MD [address] [facility] [address] [place] [address] Consulting Physician Pulmonary Disease 09/17/24 Betty Calvin PA [address] [facility] [place] [address] Physician Job Coach Orthopedic Surgery 10/08/24 Sybil Alex [facility] Pharmacist Pharmacy 10/29/24
--- OUTSIDE RECORDS SUMMARY | 2024-11-03 14:48 | XMS_ITS ---
Author Organization [facility] Care Team Providers Care Rn Case Mgr Name Role Phone MILO PELAEZ Unavailable Unavailable AGUILAR NORTH Unavailable Unavailable Socorro Rangel Unavailable Unavailable Allergies and adverse reactions Code CodeSystem Substance Reaction Severity StartDate Concern Status 52983 RXNORM Vancomycin Unknown Unknown active 8640 RXNORM predniSONE Unknown Unknown active 7052 RXNORM Morphine Unknown Unknown active 84390 RXNORM Azithromycin Unknown Unknown active 20515 RXNORM Atorvastatin Unknown Unknown active Care Team Name Role Address Phone Organization Justa Rangel [facility] [address], [place], [address], [place] States (Office): : [employer] [facility] 07/19/2022 - 08/23/2022 MILO PELAEZ [facility] [id number], [place], [address], [place] (Office): : [employer] 07/19/2022 - 08/23/2022 AGUILAR NORTH [address], [place], [address], [place] (Office): [employer] 07/19/2022 - 08/23/2022 Immunizations Immunization Status Vaccine Details Vaccine Code CodeSystem Date Notes TB 1 Step Mantoux (PPD) completed tuberculin skin test; unspecified formulation lotNumber: [id number] expiry: 11/21/2024 Mfg: Sanofi -pasteur limited Given 0.1 ml Right Forearm intradermally 98 CVX created date: 07/20/2022 consent date: 07/20/2022 administer ed date: 07/20/2022 TB 2 Step Mantoux Skin Test completed tuberculin skin test; unspecified formulation lotNumber: [id number] expiry: 11/21/2024 Mfg: Sanofi Pasteur Given 0.1 ml Left Forearm intradermally Step 1 of Multi-step with next step required 98 CVX created date: 07/27/2022 consent date: 07/27/2022 administer ed date: 07/27/2022 Educated by Yadira vallecillo LPN on 07/27/2022 Mental Status Section Date Assessment Total Score Description 08/23/2022 BIMS 15 cognitively int act CAM 0 No delirium ind icated PHQ-9 13 moderate depres minerva 07/26/2022 BIMS 15 cognitively int act CAM 0 No delirium ind icated PHQ-9 13 moderate depres minerva Problems Problem # Description Date of onset Resolved Date Code CodeSystem Concern Status 1 UNSPECIFIED SEQUELAE OF CEREBRAL INFARCTION 07/22/[address] active 2 ACUTE ON CHRONIC COMBINED SYSTOLIC (CONGESTIVE) AND DIASTOLIC (CONGESTIVE) HEART FAILURE 07/19/[address] active 3 ACUTE PYELONEPHRITIS 07/19/[address] active 4 LOCALIZED EDEMA 07/19/[address] active 5 PURE HYPERCHOLESTEROLE GEMMA, UNSPECIFIED 07/19/[address] active 6 UNSPECIFIED OPEN WOUND, RIGHT LOWER LEG, SUBSEQUENT ENCOUNTER 07/19/[address] active 7 CHILLS (WITHOUT FEVER) 06/25/[address] active 8 ESSENTIAL (PRIMARY) HYPERTENSION 06/17/[address] active 9 OTHER SPECIFIC ARTHROPATHIES, NOT ELSEWHERE CLASSIFIED, UNSPECIFIED SITE 06/17/[address] active 10 ARTHRODESIS STATUS 06/07/[address] active 11 BODY MASS INDEX [BMI] 50.0-59.9, ADULT 06/07/[address] active 12 CONGENITAL HYPOTHYROIDISM WITHOUT GOITER 06/07/[address] active 13 ENCOUNTER FOR OTHER ORTHOPEDIC AFTERCARE 06/07/[address] active 14 GENETIC ANOMALIES OF LEUKOCYTES 06/07/[address] active 15 HYPOTHYROIDISM, UNSPECIFIED 06/07/[address] active 16 INCOMPLETE ATYPICAL FEMORAL FRACTURE, LEFT LEG, SUBSEQUENT ENCOUNTER FOR FRACTURE WITH ROUTINE HEALING 06/07/[address] active 17 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 06/07/[address] active 18 MUSCLE WEAKNESS (GENERALIZED) 06/07/20 22 07/19/[address] completed 19 NEED FOR ASSISTANCE WITH PERSONAL CARE 06/07/[address] active 20 OBSTRUCTIVE SLEEP APNEA (ADULT) (PEDIATRIC) 06/07/[address] active 21 OTHER ABNORMALITIES OF GAIT AND MOBILITY 06/07/[address] active 22 OTHER HYPERLIPIDEMIA 06/07/[address] active 23 PAROXYSMAL ATRIAL FIBRILLATION 06/07/[address] active 24 PERIPROSTHETIC FRACTURE AROUND INTERNAL PROSTHETIC LEFT KNEE JOINT, SUBSEQUENT ENCOUNTER 06/07/[address] active 25 PERSONAL HISTORY OF COVID-19 06/07/[address] active 26 PRESENCE OF CARDIAC PACEMAKER 06/07/[address] active 27 PRESSURE ULCER OF LEFT BUTTOCK, STAGE 4 06/07/[address] active 28 PRIMARY GENERALIZED (OSTEO)ARTHRITIS 06/07/[address] active 29 UNILATERAL PRIMARY OSTEOARTHRITIS, RIGHT KNEE 06/07/[address] active Reason for Referral No Reasons for Referral Entered Social History Social History Observation Description Start Date End Date Code Code System Current Smoking Status Tobacco smoking consumption unknown 678142921 SNOMED CT Sex Assigned At Female 1950 55751-4 [facility] Gender Identity Female 89483597874917 [address] Vital Signs Code Code System Vitals Name Values and Units Timing Information 35206-9 [facility] Pain Level Value=1.0 08/23/2022 9279-1 [facility] Respiratory Rate Value=18.0 Units=/m in 08/11/2022 8462-4 [facility] Blood Pressure-Diastolic Value=74 Un its=mmHg 08/11/2022 8480-6 [facility] Blood Pressure-Systolic Uhyhs=516 Un its=mmHg 08/11/2022 8310-5 [facility] Body Temperature Value=97.3 Units= F 08/11/2022 8867-4 [facility] Heart rate Value=78.0 Units=/min 10/2022 04345-9 [facility] O2 % BldC Oximetry Value=96.0 Units= % 08/11/2022 49827-9 [facility] Weight Kfedc=939.8 Units=Lbs 09/2022 8302-2 [facility] Height Value=64.0 Units=Inches 06/12/2022
--- OUTSIDE RECORDS SUMMARY | 2024-11-03 14:48 | XMS_ITS | Encounter Summary ---
Author Organization [facility] Facility Care Team Providers Care Director Imaging Name Role Phone Harry Jorgensen MD Primary Care Provider + Truman Moody MD Unavailable [phone] Michael Quiros MD Unavailable [phone] Mohan Rico MD Unavailable [phone] Betty Calvin Unavailable [phone] Sybil Alex [facility] Unavailable Unavailable Encounter Details Date Type Department Care Team (Latest Contact Info) Description 05/08/2018 Orders Only [facility] CLINCONV ProviderKrzysztof MD [address] [place] [address] Social History Tobacco Use Types Packs/Day Years Used Date Smoking Tobacco: Never Alcohol Use Standard Drinks/Week Comments No 0 (1 standard drink = 0.6 oz pur e alcohol) Comments Unknown Sex and Gender Information Value Date Recorded Sex Assigned at Not on file Legal Sex Female 10:24 AM PLUMBER AND TINNER Gender Identity Female 01/15/2021 9:27 PM CDT Sexual Orientation Straight 01/15/2021 9: 27 PM CDT documented as of this encounter Plan of Treatment Not on file documented as of this encounter Procedures Procedure Name Priority Date/Time Associated Diagnosis Comments CARDIOLOGY REPORT 05/08/2018 12: 00 AM PLUMBER AND TINNER documented in this encounter Results * CARDIOLOGY REPORT (05/08/2018 12:00 AM PLUMBER AND TINNER) Anatomical Region Laterality Modality Other Narrative 05/08/2018 12:00 AM PLUMBER AND TINNER Ordered by an unspecified provider. us Historical Provider [facility] CARDIAC [facility] PROCE ALEX Final Result documented in this encounter Visit Diagnoses Not on filedocumented in this encounter Additional Health Concerns Infection Onset Date Last Indicated Resolved Time COVID19 10/21/2024 10/21/2024 documented as of this encounter Care Teams Director Imaging Relationship Specialty Start Date End Date Harry Jorgensen MD PCP - General 09/06/16 Truman Moody MD Senior Programmer Cardiology 02/01/19 09/16/24 Michael Quiros MD [address] [place] [address] Referring Physician Interventional Cardiology 09/17/24 Mohan Rico MD [address] [facility] [address] [place] [place] [address] Consulting Physician Pulmonary Disease 09/17/24 Betty Calvin PA [address] [facility] [address] [place] [address] [place] [address] Physician Seal Extrusion Operator Orthopedic Surgery 10/08/24 Sybil Alex, [facility] Pharmacist Pharmacy 10/29/24 documented as of this encounter
--- OUTSIDE RECORDS SUMMARY | 2024-11-03 14:48 | XMS_ITS | Encounter Summary ---
Author Organization [facility] Facility Care Team Providers Care Grid Maker Name Role Phone Harry Jorgensen MD Primary Care Provider + Truman Moody MD Unavailable [phone] Michael Quiros MD Unavailable [phone] Mohan Rico MD Unavailable [phone] Betty Calvin Unavailable [phone] Sybil Alex [facility] Unavailable Unavailable Encounter Details Date Type Department Care Team (Latest Contact Info) Description 02/04/2018 Orders Only [facility] CLINCONV ProviderKrzysztof MD [address] [place] [address] Social History Tobacco Use Types Packs/Day Years Used Date Smoking Tobacco: Never Alcohol Use Standard Drinks/Week Comments No 0 (1 standard drink = 0.6 oz pur e alcohol) Comments Unknown Sex and Gender Information Value Date Recorded Sex Assigned at Not on file Legal Sex Female 10:24 AM CREW DIRECTOR Gender Identity Female 01/15/2021 9:27 PM CDT Sexual Orientation Straight 01/15/2021 9: 27 PM CDT documented as of this encounter Plan of Treatment Not on file documented as of this encounter Procedures Procedure Name Priority Date/Time Associated Diagnosis Comments CARDIOLOGY REPORT 02/04/2018 12: 00 AM CDT documented in this encounter Results * CARDIOLOGY REPORT (02/04/2018 12:00 AM CDT) Anatomical Region Laterality Modality Other Narrative 02/04/2018 12:00 AM CDT Ordered by an unspecified provider. us Historical Provider [facility] CARDIAC [facility] JACKI JOHNSON Final Result documented in this encounter Visit Diagnoses Not on filedocumented in this encounter Additional Health Concerns Infection Onset Date Last Indicated Resolved Time COVID19 10/21/2024 10/21/2024 documented as of this encounter Care Teams Grid Maker Relationship Specialty Start Date End Date Harry Jorgensen MD PCP - General 09/06/16 Truman Moody MD Records Manager Cardiology 02/01/19 09/16/24 Michael Quiros MD [address] [place] [address] [address] [place] [address] Referring Physician Interventional Cardiology 09/17/24 Mohan Rico MD [address] [facility] [facility] [address] [place] [address] Consulting Physician Pulmonary Disease 09/17/24 Betty Calvin PA [address] [facility] [address] [place] [address] Physician Labor Economics Teacher Orthopedic Surgery 10/08/24 Sybil Alex, [facility] Pharmacist Pharmacy 10/29/24 documented as of this encounter
--- OUTSIDE RECORDS SUMMARY | 2024-11-03 14:48 | XMS_ITS | Encounter Summary ---
Author Organization [facility] Healthcare Address [address] [place] [address] Care Team Providers Care Micrographics Services Supervisor Name Role Phone Harry Jorgensen MD Primary Care Provider + Michael Quiros MD Unavailable Mohan Rico MD Unavailable [phone] Betty Calvin Unavailable [phone] [facility] Unavailable Unavailable Encounter Details Date Type Department Care Team (Late st Contact Info) Description 10/15/2024 Results Follow-Up [facility] Medical Group Post Acute Care of [address] [phone] Abisai Stover MD [address] [place] [address] [address] CBC without differential, Comprehensive metabolic panel, eGFR Social History Tobacco Use Types Packs/Day Years Used Date Smoking Tobacco: Never Smokeless Tobacco: Never Alcohol Use Standard Drinks/Week Comments No 0 (1 standard drink = 0.6 oz pur e alcohol) [facility] Utilities Answer Date Recorded In the past 12 months has [employer] electric, gas, oil, or water company threatened to shut off services in your home? No 10/08/2024 Social Connection and Isolat ion Panel [NHANES] Answer Date Recorded In a typical week, how many times do you talk on the phone with family, friends, or neighbors? More than three times a week 10/08/2024 How often do you get togethe r with friends or relatives? Three times a week 10/08/2024 How often do you attend chur ch or buddhism services? More than 4 times per year 10/08/2024 Do you belong to any clubs o r organizations such as religious groups, unions, fraternal or athletic groups, or school groups? Yes 10/08/2024 How often do you attend meet ings of the clubs or organizations you belong to? More than 4 times per year 10/08/2024 Are you , , di vorced, , never , or living with a partner? 10/08/2024 AUDIT-C Answer Date Recorded Q1: How often do you have a drink containing alcohol? Never 10/01/2024 Q2: How many drinks containi ng alcohol do you have on a typical day when you are drinking? Patient does not drink Frequency of Binge Drinking Not on file 09/08 Overall Financial Resource Strain (CARDIA) Answe r Date Recorded How hard is it for you to pa y for the very basics like food, housing, medical care, and heating? Not hard at all 10/08/2024 Hunger Vital Sign Answer Date Recorded Within the past 12 months, y ou worried that your food would run out before you got the money to buy more. Never true 10/09/19 Within the past 12 months, t he food you bought just didn't last and you didn't have money to get more. Never true 10/08/2024 PRAPARE - Transportation Answer Date Re corded In the past 12 months, has l ack of transportation kept you from medical appointments or from getting medications? No 07/2024 In the past 12 months, has l ack of transportation kept you from meetings, work, or from getting things needed for daily living? No 10/08/2024 Housing Stability Vital Sign Answer Keith e [...] place to sleep or slept in a alf (including now)? No 04/03/2023 Housing Stability Vital Sign Answer Keith e Recorded In the last 12 months, was t here a time when you were not able to pay the mortgage or rent on time? No 10/08/2024 In the past 12 months, how m any times have you moved where you were living? 0 10/08/2024 At any time in the past 12 m [facility], were you homeless or living in a alf (including now)? No 10/08/2024 Personal Safety Answer Date Recorded Have you ever been in or are you currently in a harmful physical or emotional relationship or is someone making you feel afraid or unsafe? Denies 10/12/2024 Comments No Sex and Gender Information Value Date Recorded Sex Assigned at Not on file Legal Sex Female 10:24 AM PROGRAM ENGAGEMENT DIRECTOR Gender Identity Female 01/15/2021 9:27 PM CDT Sexual Orientation Straight 01/15/2021 9: 27 PM CDT documented as of this encounter Miscellaneous Notes * Result Encounter Note - Abisai Stover MD - 10/15/2024 10:27 AM CDT Lab reviewed and patient seen documented in this encounter Plan of Treatment Not on file documented as of this encounter Visit Diagnoses Not on filedocumented in this encounter Additional Health Concerns Infection Onset Date Last Indicated Resolved Time COVID19 10/21/2024 10/21/2024 documented as of this encounter Care Teams Micrographics Services Supervisor Relationship Specialty Start Date End Date Harry Jorgensen MD PCP - General 09/06/16 Michael Quiros MD [address] [place] [address] Referring Physician Interventional Cardiology 09/17/24 Mohan Rico MD [address] [place] [address] [place] [address] Consulting Physician Pulmonary Disease 09/17/24 Betty Calvin PA [address] [place] [address] [place] [address] Physician Service Center Specialist Orthopedic Surgery 10/08/24 Sybil Alex, [facility] Pharmacist Pharmacy 10/29/24 documented as of this encounter
--- OUTSIDE RECORDS SUMMARY | 2024-11-03 14:48 | XMS_ITS | Encounter Summary ---
Author Organization [facility] Care Team Providers Care Backup Operator Name Role Phone Harry Jorgensen MD Primary Care Provider + Truman Moody MD Unavailable [phone] Michael Quiros MD Unavailable [phone] Mohan Rico MD Unavailable [phone] Betty Calvin Unavailable [phone] Sybil Alex [facility] Unavailable Unavailable Encounter Details Date Type Department Care Team (Latest Contact Info) Description 08/26/2018 Orders Only [facility] CLINCONV ProviderKrzysztof MD [address] [place] [address] Social History Tobacco Use Types Packs/Day Years Used Date Smoking Tobacco: Never Alcohol Use Standard Drinks/Week Comments No 0 (1 standard drink = 0.6 oz pur e alcohol) Comments Unknown Sex and Gender Information Value Date Recorded Sex Assigned at Not on file Legal Sex Female 10:24 AM MOTHER REPAIRER Gender Identity Female 01/15/2021 9:27 PM CDT Sexual Orientation Straight 01/15/2021 9: 27 PM CDT documented as of this encounter Plan of Treatment Not on file documented as of this encounter Procedures Procedure Name Priority Date/Time Associated Diagnosis Comments SCAN - LABS 08/26/2018 12:00 AM CDT documented in this encounter Results * SCAN - LABS (08/26/2018 12:00 AM CDT) Narrative 08/26/2018 12:00 AM CDT Ordered by an unspecified provider. us Historical Provider Final Res ult documented in this encounter Visit Diagnoses Not on filedocumented in this encounter Additional Health Concerns Infection Onset Date Last Indicated Resolved Time COVID19 10/21/2024 10/21/2024 documented as of this encounter Care Teams Backup Operator Relationship Specialty Start Date End Date Harry Jorgensen MD PCP - General 09/06/16 Truman Moody MD Forms Analysis Manager Cardiology 02/01/19 09/16/24 Michael Quiros MD [address] [address] Referring Physician Interventional Cardiology 09/17/24 Mohan Rico MD [address] [facility] [address] [place] [address] [place] [address] Consulting Physician Pulmonary Disease 09/17/24 Betty Calvin PA [address] [facility] [address] [place] [address] [place] [address] Physician Surveillance Technician Orthopedic Surgery 10/08/24 Sybil Alex, [facility] Pharmacist Pharmacy 10/29/24 documented as of this encounter
--- OUTSIDE RECORDS SUMMARY | 2024-11-03 14:48 | XMS_ITS | Encounter Summary ---
Author Organization [facility] Healthcare Address [address] [place] [address] Care Team Providers Care Machine Maintenance Name Role Phone Harry Jorgensen MD Primary Care Provider + Michael Quiros MD Unavailable [phone] Mohan Rico MD Unavailable [phone] Betty Calvin Unavailable [phone] Sybil Alex [facility] Unavailable Unavailable Encounter Details Date Type Department Care Team (Late st Contact Info) Description 10/29/2024 Home Infusion [facility] Home Infusion Therapy [address] [place] [address] Sybil Alex, [facility] Open knee wound, right, subsequent encounter (Primary Dx) Social History Tobacco Use Types Packs/Day Years Used Date Smoking Tobacco: Never Smokeless Tobacco: Never Alcohol Use Standard Drinks/Week Comments No 0 (1 standard drink = 0.6 oz pur e alcohol) [facility] Utilities Answer Date Recorded In the past 12 months has [employer], gas, oil, or water company threatened to [...] 10/22/2024 How often do you attend chur ch or anabaptist services? More than 4 times per year 10/22/2024 Do you belong to any clubs o r organizations such as worship groups, unions, fraternal or athletic groups, or [...] place to sleep or slept in a fci (including now)? No 04/03/2023 Housing Stability Vital Sign Answer Keith e Recorded In the last 12 months, was t here a time when you were not able to pay the mortgage or rent on time? No 10/22/2024 In the past 12 months, how m any times have you moved where you were living? 0 10/22/2024 At any time in the past 12 m [facility], were you homeless or living in a fci (including now)? No 10/22/2024 Personal Safety Answer Date Recorded Have you ever been in or are you currently in a harmful physical or emotional relationship or is someone making you feel afraid or unsafe? Denies 10/21/2024 Comments No Sex and Gender Information Value Date Recorded Sex Assigned at Not on file Legal Sex Female 10:24 AM TRADESHOW WORKER Gender Identity Female 01/15/2021 9:27 PM CDT Sexual Orientation Straight 01/15/2021 9: 27 PM CDT documented as of this encounter Last Filed Vital Signs Vital Sign Reading Time Taken Comments Blood Pressure - - Pulse - - Temperature - - Respiratory Rate - - Oxygen Saturation - - Inhaled Oxygen Concentration - - Weight 137.9 kg (304 lb 0.2 oz) 10/29/2024 2:32 PM CDT Height 165.1 cm (5' 5) 10/29/2024 2:32 PM CDT Body Mass Index 50.59 10/29/2024 2:32 PM CDT documented in this encounter Ordered Prescriptions Prescription Sig Dispense Quantity Refills Last Filled Start Date End Date heparin 10 unit/mL syringe flush syringeIndication s:Open knee wound, right, subsequent encounter Infuse 5 mL (50 Units total) IV as needed (line care) 21056 mL 10/29/2024 6 sodium chloride 0.9% flush syringeIndication s:Open knee wound, right, subsequent encounter Infuse 10 mL IV as needed for line care 77807 mL 10/29/2024 6 DAPTOmycin 850 mg in sodium chloride 0.9% 17 mL IV SyringeIndication s:Open knee wound, right, subsequent encounter Give 17 mL (850 mg) by slow IV push every 24 hours over 2 minutes. Remove dose from refrigerator 1-2 hours prior to use. 187 mL 10/29/2024 documented in this encounter Plan of Treatment Not on file documented as of this encounter Visit Diagnoses Diagnosis Open knee wound, right, subsequent encounter- Primary documented in this encounter Additional Health Concerns Infection Onset Date Last Indicated Resolved Time COVID19 10/21/2024 10/21/2024 documented as of this encounter Care Teams Machine Maintenance Relationship Specialty Start Date End Date Harry Jorgensen MD PCP - General 09/06/16 Michael Quiros MD [address] [place] [address] Referring Physician Interventional Cardiology 09/17/24 Mohan Rico MD [address] [facility] [address] [place] [address] [place] [address] Consulting Physician Pulmonary Disease 09/17/24 Betty Calvin PA [address] [facility] [address] [place] [address] [place] [address] Physician Drywall Metal Stud Worker Orthopedic Surgery 10/08/24 Sybil Alex, [facility] Pharmacist Pharmacy 10/29/24 documented as of this encounter
--- OUTSIDE RECORDS SUMMARY | 2024-11-03 14:48 | XMS_ITS | Encounter Summary ---
Author Organization [facility] Facility Care Team Providers Care Freight Delivery Driver Name Role Phone Harry Jorgensen MD Primary Care Provider + Truman Moody MD Unavailable [phone] Michael Quiros MD Unavailable [phone] Mohan Rico MD Unavailable [phone] Betty Calvin Unavailable [phone] Sybil Alex [facility] Unavailable Unavailable Encounter Details Date Type Department Care Team (Latest Contact Info) Description 07/29/2018 Orders Only [facility] CLINCONV ProviderKrzysztof MD [address] [place] [address] Social History Tobacco Use Types Packs/Day Years Used Date Smoking Tobacco: Never Alcohol Use Standard Drinks/Week Comments No 0 (1 standard drink = 0.6 oz pur e alcohol) Comments Unknown Sex and Gender Information Value Date Recorded Sex Assigned at Not on file Legal Sex Female 10:24 AM TOOLS PROGRAMMER Gender Identity Female 01/15/2021 9:27 PM CDT Sexual Orientation Straight 01/15/2021 9: 27 PM CDT documented as of this encounter Plan of Treatment Not on file documented as of this encounter Procedures Procedure Name Priority Date/Time Associated Diagnosis Comments SCAN - LABS 07/29/2018 12:00 AM TOOLS PROGRAMMER CARDIOLOGY REPORT 07/29/2018 12: 00 AM TOOLS PROGRAMMER documented in this encounter Results * SCAN - LABS (07/29/2018 12:00 AM TOOLS PROGRAMMER) Narrative 07/29/2018 12:00 AM TOOLS PROGRAMMER Ordered by an unspecified provider. us Historical Provider Final Res ult * CARDIOLOGY REPORT (07/29/2018 12:00 AM TOOLS PROGRAMMER) Anatomical Region Laterality Modality Other Narrative 07/29/2018 12:00 AM TOOLS PROGRAMMER Ordered by an unspecified provider. us Historical Provider [facility] CARDIAC [facility] PROCE ALEX Final Result documented in this encounter Visit Diagnoses Not on filedocumented in this encounter Additional Health Concerns Infection Onset Date Last Indicated Resolved Time COVID19 10/21/2024 10/21/2024 documented as of this encounter Care Teams Freight Delivery Driver Relationship Specialty Start Date End Date Harry Jorgensen MD PCP - General 09/06/16 Truman Moody MD Art Glass Designer Cardiology 02/01/19 09/16/24 Michael Quiros MD [address] [place] [address] Referring Physician Interventional Cardiology 09/17/24 Mohan Rico MD [address] [facility] [address] [place] [address] Consulting Physician Pulmonary Disease 09/17/24 Betty Calvin PA [address] [facility] [address] [place] [address] Physician Bean Snapper Orthopedic Surgery 10/08/24 Sybil Alex, [facility] Pharmacist Pharmacy 10/29/24 documented as of this encounter
--- OUTSIDE RECORDS SUMMARY | 2024-11-03 14:48 | XMS_ITS | Encounter Summary ---
Author Organization [facility] Address [address] [place] [address] Care Team Providers Care Contour Sander Name Role Phone Harry Jorgensen MD Primary Care Provider + Michael Quiros MD Unavailable [phone] Mohan Rico MD Unavailable [phone] Betty Calvin Unavailable [phone] Sybil Alex [facility] Unavailable Unavailable Reason for Referral * Consultation (Routine) - Pending Review Specialty Diagnoses / Procedures Referred By Contramona t Referred To Contact Wound Care Diagnoses Postoperative wound [place], [place] [address] [place] [address] Phone: tel: fax: [facility] Wound Care at [address] [place] [address] Phone: tel: fax: Referral ID Status Reason Start Date Expiration Date Visits Requested Visits Authorized [id number] Pending Review Specialty Services Required 11/03/2024 12/03/2025 1 1 Question Answer Please select the performing region: [facility] [[id number]] Please select the performing department: [facility] 120 [[id number]] # of visits: 1 Encounter Details Date Type Department Care Team (Late st Contact Info) Description 11/03/2024 Orders Only [facility] Orthopedics and Sports Medicine [address] [place] [address] [address] [place] [phone] Betty Calvin PA [address] [place] [address] [address] [place] [address] Postoperative wound dehiscence, initial encounter (Primary Dx) Social History Tobacco Use Types Packs/Day Years Used Date Smoking Tobacco: Never Smokeless Tobacco: Never Alcohol Use Standard Drinks/Week Comments No 0 (1 standard drink = 0.6 oz pur e alcohol) [facility] Utilities Answer Date Recorded In the past 12 months has [employer], gas, oil, or water [employer] Have [employer] threatened to shut off services in your [...] week 10/22/2024 How often do you attend [facility] or anabaptism services? More than 4 times per year 10/22/2024 Do you belong to any clubs o r organizations such as sabianism groups, unions, fraternal or athletic groups, or [...] place to sleep or slept in a custodial (including now)? No 04/03/2023 Housing Stability Vital Sign Answer Keith e Recorded In the last 12 months, was t here a time when you were not able to pay the mortgage or rent on time? No 10/22/2024 In the past 12 months, how m any times have you moved where you were living? 0 10/22/2024 At any time in the past 12 m [facility], were you homeless or living in a custodial (including now)? No 10/22/2024 Personal Safety Answer Date Recorded Have you ever been in or are you currently in a harmful physical or emotional relationship or is someone making you feel afraid or unsafe? Denies 10/21/2024 Comments No Sex and Gender Information Value Date Recorded Sex Assigned at Not on file Legal Sex Female 10:24 AM MANAGER AREA Gender Identity Female 01/15/2021 9:27 PM CDT Sexual Orientation Straight 01/15/2021 9: 27 PM CDT documented as of this encounter Plan of Treatment Scheduled Referrals Name Type Priority Associated Diagnoses Order Schedule Ambulatory referral to Wound Clinic Outpatient Referral Routine Postoperative wound dehiscence, initial encounter Expected: 11/17/2024 (Approximate), Expires: 11/03/2025 documented as of this encounter Visit Diagnoses Diagnosis Postoperative wound dehiscence, initial encounter- Primary documented in this encounter Additional Health Concerns Infection Onset Date Last Indicated Resolved Time COVID19 10/21/2024 10/21/2024 documented as of this encounter Care Teams Contour Sander Relationship Specialty Start Date End Date Harry Jorgensen MD PCP - General 09/06/16 Michael Quiros MD [address] [place] [address] Referring Physician Interventional Cardiology 09/17/24 Mohan Rico MD [address] [facility] [address] [place] [address] [place] [address] Consulting Physician Pulmonary Disease 09/17/24 Betty Calvin PA [address] [facility] [address] [place] [address] [place] [address] Physician Machine Hostler Orthopedic Surgery 10/08/24 Sybil Alex, [facility] Pharmacist Pharmacy 10/29/24 documented as of this encounter
--- OUTSIDE RECORDS SUMMARY | 2024-11-03 14:48 | XMS_ITS | Encounter Summary ---
Author Organization [facility] Healthcare Address [address] [place] [address] Care Team Providers Care Carbonation Tester Name Role Phone Harry Jorgensen MD Primary Care Provider + Michael Quiros MD Unavailable [phone] Mohan Rico MD Unavailable [phone] Betty Calvin Unavailable [phone] Sybil Alex [facility] Unavailable Unavailable Reason for Visit * Reason Comments Post-op Encounter Details Date Type Department Care Team (Late st Contact Info) Description 11/03/2024 10:30 AM CDT Office Visit [facility] Medical [facility] Orthopedics and Sports Medicine [address] [place] [phone] Betty Calvin PA [address] [place] [address] [address] [place] [address] Postoperative wound dehiscence, subsequent encounter (Primary Dx) Social History Tobacco Use Types Packs/Day Years Used Date Smoking Tobacco: Never Smokeless Tobacco: Never Alcohol Use Standard Drinks/Week Comments No 0 (1 standard drink = 0.6 oz pur e alcohol) [facility] Utilities Answer Date Recorded In the past 12 months has [employer], gas, oil, or water [employer] threatened to shut off services in your [...] often do you attend chur ch or gnosticism services? More than 4 times per year 10/22/2024 Do you belong to any clubs o r organizations such as jehovah's witness groups, unions, fraternal or athletic groups, or [...] place to sleep or slept in a [facility] (including now)? No 04/03/2023 Housing Stability Vital [...] time in the past 12 m [facility], were you homeless or living in a m[facility]p (including now)? No 10/22/2024 Personal Safety Answer Date Recorded Have you ever been in or are you currently in a harmful physical or emotional relationship or is someone making you feel afraid or unsafe? 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 POST-OPERATIVE PROGRESS NOTE History of Present Illness Patient is a 74 y.o. female who presents for a 2 week follow-up s/p right knee irrigation and debridement. Patient was discharged to home with home health on IV daptomycin last week. She does not yethave a follow up scheduled with infectious disease. The patient is ambulating well with a walker, but is in a wheelchair today. She has minimal pain with ROM, but has not been flexing the knee very far due to her wound dehiscence. The patient has no complaints at this time and has been progressing well. Pain is well controlled with oral pain medications. ROS Negative except for stated in HPI. Physical Exam Patient is A&Ox3, NAD. Incision continues to have gapping at middle incision with serous drainage. Zoe and sutures are intact with the exception of 3 prolene sutures that have pulled through the proximal aspect of the gap. No active bleeding noted. ROM extends to 0 degrees and flexes to approximately 95 degrees. No anterior/posterior/varus/valgus instability. No sign of DVT. The lower extremity is warm and shows good perfusion. SILT, good DF/PF. Assessment 1. S/P right TKA s/p irrigation and debridement, progressing slowly with continued wound dehiscence. Plan 1. Continue WBAT and activity as tolerated. 2. Post-operative DVT prophylaxis has been completed. 3. Continue daily home exercises for ROM, strengthening and gait training. 4. Follow up next week for re-evaluation with Dr. Marsh. 5. Keep incision clean, dry, and covered at all times.Do not get incision wet. Notify our office with any signs of infection including redness, swelling, drainage, etc. Dressings provided with patient today. 6. Referred the patient to Wound Clinic. 7. Our office is contacted Infectious Disease to set up a follow up appointment with Dr. Alcazar. Continue IV antibiotics as previously prescribed. The patient was also evaluated by Dr. Marsh, who voiced agreement with the above assessment and plan. LARRY Rooney Cosigned by Adelfo Marsh MD at 11/03/2024 12:42 PM CDT documented in this encounter Plan of Treatment Not on file documented as of this encounter Visit Diagnoses Diagnosis Postoperative wound dehiscence, subsequent encounter- Primary documented in this encounter Additional Health Concerns Infection Onset Date Last Indicated Resolved Time COVID19 10/21/2024 10/21/2024 documented as of this encounter Care Teams Carbonation Tester Relationship Specialty Start Date End Date Harry Jorgensen MD PCP - General 09/06/16 Michael Quiros MD [address] [place] [address] Referring Physician Interventional Cardiology 09/17/24 Mohan Rico MD [address] [facility] [address] [place] [address] Consulting Physician Pulmonary Disease 09/17/24 Betty Calvin PA [address] [facility] [address] [address] [place] [address] Physician Labor Training Manager Orthopedic Surgery 10/08/24 Sybil Alex, [facility] Pharmacist Pharmacy 10/29/24 documented as of this encounter
--- OUTSIDE RECORDS SUMMARY | 2024-11-03 14:48 | XMS_ITS ---
Author Organization [facility] Address [address] [place] [address] Care Team Providers Care Tie Man Name Role Phone Harry Jorgensen MD Primary Care Provider + Michael Quiros MD Unavailable [phone] Mohan Rico MD Unavailable [phone] Betty Calvin Unavailable [phone] Sybil Alex [facility] Unavailable Unavailable Home Infusion Status:Under Review (Active) Start date:10/29/2024 Enrollment date:10/29/2024 Related service episodes:Daptomcin 850mg IV q 24 hours (Active) Continued Care and Services Coordination
--- OUTSIDE RECORDS SUMMARY | 2024-11-03 14:48 | XMS_ITS | CONTINUITY OF CARE DOCUMENT ---
Author Name radha garcia Address Unknown Organization [facility] Address [address] [facility] [address] [place] [address] Phone [phone] Care Team Providers Care Science Technicians Name Role Phone radha garcia Unavailable Unavailable
--- OUTSIDE RECORDS SUMMARY | 2024-11-03 14:48 | XMS_ITS | Encounter Summary ---
Author Organization [facility] Care Team Providers Care Cigarette Examiner Name Role Phone Harry Jorgensen MD Primary Care Provider + Truman Moody MD Unavailable [phone] Michael Quiros MD Unavailable [phone] Mohan Rico MD Unavailable [phone] Betty Calvin Unavailable [phone] Sybil Alex [facility] Unavailable Unavailable Encounter Details Date Type Department Care Team (Latest Contact Info) Description 02/10/2018 Orders Only [facility]IN[facility] ProviderKrzysztof MD [address] [place] [id number] Social History Tobacco Use Types Packs/Day Years Used Date Smoking Tobacco: Never Alcohol Use Standard Drinks/Week Comments No 0 (1 standard drink = 0.6 oz pur e alcohol) Comments Unknown Sex and Gender Information Value Date Recorded Sex Assigned at Not on file Legal Sex Female 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 us Historical Provider Final Res ult documented in this encounter Visit Diagnoses Not on filedocumented in this encounter Additional Health Concerns Infection Onset Date Last Indicated Resolved Time COVID19 10/21/2024 10/21/2024 documented as of this encounter Care Teams Cigarette Examiner Relationship Specialty Start Date End Date Harry Jorgensen MD PCP - General 09/06/16 Truman Moody MD [facility] 02/01/19 09/16/24 Michael Quiros MD [address] [address] Referring Physician Interventional Cardiology 09/17/24 Mohan Rico MD [address] [facility] [address] [place] [address] [place] [phone] Consulting Physician Pulmonary Disease 09/17/24 Betty Calvin PA [address] [facility] [address] [address] [place] [address] Physician Pond Scaler Orthopedic Surgery 10/08/24 Sybil Alex, [facility] Pharmacist Pharmacy 10/29/24 documented as of this encounter
--- OUTSIDE RECORDS SUMMARY | 2024-11-03 14:48 | XMS_ITS | Clinical Summary ---
Author Organization Unknown Care Team Providers Care Application Development Intern Name Role Phone BRENNEN MCMULLEN, DANYELLE Unavailable Unavailable ARNAUD TOBAR, NOAH Unavailable Unavailable Payers Payer Name Policy Type Policy Number Effective Date Expira tion Date MEDICARE - [place] - PDGM [id number] Problems Condition Name Condition Details Condition Category Status Onset Date Resolution Date Last Treatment Date Treating Clinician Comments ARTHRITIS DUE TO OTHER BACTERIA, RIGHT KNEE Active 10-26 00:00: 00 DISRUPTION OF WOUND, UNSPECIFIED, INITIAL ENCOUNTER Active 10-21 00:00: 00 Allergies, Adverse Reactions, Alerts Allergy Name Allergy Type Status Severity Reaction(s) Onset Date Inactive Date Treating Clinician Comments ATORVASTATIN Propensity to adverse reactions Active 10-31 20:28: 44 AZITHROMYCIN Propensity to adverse reactions Active 10-31 20:28: 54 MORPHINE Propensity to adverse reactions Active 10-31 20:29: 19 PREDNISONE Propensity to adverse reactions Active 10-31 20:29: 29 TOPICAL SILVER Propensity to adverse reactions Active 10-31 20:29: 54 VANCOMYCIN Propensity to adverse reactions Active 10-31 20:30: 28 ADHESIVE Propensity to adverse reactions Active 10-31 20:30: 50 CLOROX BLEACH Propensity to adverse reactions Active 10-31 20:31: 21 SODIUM HYPOCHLORITE Propensity to adverse reactions Active 10-31 20:31: 40 Immunizations Ordered Immunization Name Filled Immunization Name Date Status Comments Refusal Reason COVID BOOSTER, COVID BOOSTER 2024-07-13 00:00:00 PNEUMOCOCCAL (PPV), PPV 2021-10-10 00:00:00 Vital Signs Vital Name Observation Time Observation Value Commen ts Temperature 2024-10-30 09:47:00.000 97.8 [degF] BMI (%) 2024-10-30 09:47:00.000 46 kg/m2 Height 2024-10-30 09:47:00.000 65 [in_us] Pulse 2024-10-30 09:47:00.000 63 /min O2 Saturation (%) 2024-10-30 09:47:00.000 95 % Respirations 2024-10-30 09:47:00.000 16 /min Weight (lbs) 2024-10-30 09:47:00.000 280 [lb_av] Systolic Blood Pressure 2024-10-30 09:47:00.000 118 mm [Hg] Diastolic Blood Pressure 2024-10-30 09:47:00.000 60 mm [Hg] Plan of Treatment Planned Activity Planned Date Details Comments Future Scheduled Test SKILLED NU RSE TO EVALUATE PATIENT, IDENTIFY PRIMARY AND CO-MORBID CONDITIONS CODED PER CODING GUIDELINES, AND DEVELOP PATIENT SPECIFIC PLAN OF CARE THAT INCLUDES PATIENT GOAL FOR HOME HEALTH. [code = SKILLED NURSE TO EVALUATE PATIENT, IDENTIFY PRIMARY AND CO-MORBID CONDITIONS CODED PER CODING GUIDELINES, AND DEVELOP PATIENT SPECIFIC PLAN OF CARE THAT INCLUDES PATIENT GOAL FOR HOME HEALTH.] Future Scheduled Test SKILLED NU RSE TO REVIEW PATIENT MEDICATIONS (PRESCRIPTION/OTC). INSTRUCT PATIENT/CAREGIVER ON ALL MEDICATIONS INCLUDING PURPOSE, WHEN TO TAKE, IMPORTANCE OF MEDICATION ADHERENCE, MONITORING OF EFFECTIVENESS, ADVERSE DRUG REACTIONS, POSSIBLE SIDE EFFECTS, AND WHEN TO NOTIFY AGENCY OR PHYSICIAN/PROVIDER OF ANY CONCERNS. [code = SKILLED NURSE TO REVIEW PATIENT MEDICATIONS (PRESCRIPTION/OTC). INSTRUCT PATIENT/CAREGIVER ON ALL MEDICATIONS INCLUDING PURPOSE, WHEN TO TAKE, IMPORTANCE OF MEDICATION ADHERENCE, MONITORING OF EFFECTIVENESS, ADVERSE DRUG REACTIONS, POSSIBLE SIDE EFFECTS, AND WHEN TO NOTIFY AGENCY OR PHYSICIAN/PROVIDER OF ANY CONCERNS.] Future Scheduled Test SKILLED NU RSE TO PROVIDE INSTRUCTION TO PATIENT/CAREGIVER RELATED TO DISCHARGE PLANNING. [code = SKILLED NURSE TO PROVIDE INSTRUCTION TO PATIENT/CAREGIVER RELATED TO DISCHARGE PLANNING.] Future Scheduled Test PATIENT ESTRADA S A RISK OF HOSPITALIZATION AND ED USE. SKILLED NURSE TO ESTABLISH SUPPORT MEASURES TO MINIMIZE RISK OF HOSPITALIZATION AND ED USE, AND INSTRUCT PATIENT/CAREGIVER ON METHODS TO REDUCE AVOIDABLE HOSPITALIZATION AND ED USE. [code = PATIENT HAS A RISK OF HOSPITALIZATION AND ED USE. SKILLED NURSE TO ESTABLISH SUPPORT MEASURES TO MINIMIZE RISK OF HOSPITALIZATION AND ED USE, AND INSTRUCT PATIENT/CAREGIVER ON METHODS TO REDUCE AVOIDABLE HOSPITALIZATION AND ED USE.] Future Scheduled Test SKILLED NU RSE TO PERFORM ENVIRONMENTAL SAFETY RISK ASSESSMENT AND FALL RISK ASSESSMENT AND PROVIDE INSTRUCTION TO IMPLEMENT ENVIRONMENTAL SAFETY AND FALL PREVENTION STRATEGIES THROUGHOUT THE CERTIFICATION PERIOD. SKILLED NURSE WILL MAINTAIN SITUATIONAL AWARENESS AND WILL NOTIFY CLINICAL TRAPPER ANIMAL AND PHYSICIAN/PROVIDER WITH ANY CHANGE IN CONDITION. [code = SKILLED NURSE TO PERFORM ENVIRONMENTAL SAFETY RISK ASSESSMENT AND FALL RISK ASSESSMENT AND PROVIDE INSTRUCTION TO IMPLEMENT ENVIRONMENTAL SAFETY AND FALL PREVENTION STRATEGIES THROUGHOUT THE CERTIFICATION PERIOD. SKILLED NURSE WILL MAINTAIN SITUATIONAL AWARENESS AND WILL NOTIFY CLINICAL TRAPPER ANIMAL AND PHYSICIAN/PROVIDER WITH ANY CHANGE IN CONDITION.] Future Scheduled Test SKILLED NU RSE FOR OBSERVATION AND ASSESSMENT OF PATIENTS PAIN LEVEL AND EFFECTIVENESS OF PAIN MANAGEMENT REGIMEN. SKILLED NURSE TO INSTRUCT PATIENT/CAREGIVER REGARDING PHARMACOLOGIC AND NON-PHARMACOLOGIC PAIN CONTROL MEASURES. SKILLED NURSE TO REPORT TO PHYSICIAN IF PAIN LEVEL IS OUTSIDE OF ESTABLISHED PARAMETERS. [code = SKILLED NURSE FOR OBSERVATION AND ASSESSMENT OF PATIENTS PAIN LEVEL AND EFFECTIVENESS OF PAIN MANAGEMENT REGIMEN. SKILLED NURSE TO INSTRUCT PATIENT/CAREGIVER REGARDING PHARMACOLOGIC AND NON-PHARMACOLOGIC PAIN CONTROL MEASURES. SKILLED NURSE TO REPORT TO PHYSICIAN IF PAIN LEVEL IS OUTSIDE OF ESTABLISHED PARAMETERS.] Future Scheduled Test SKILLED NU RSE TO ASSESS PATIENT'S SKIN INTEGRITY AND INSTRUCT PATIENT/CAREGIVER ON MEASURES TO PREVENT PRESSURE ULCERS. [code = SKILLED NURSE TO ASSESS PATIENT'S SKIN INTEGRITY AND INSTRUCT PATIENT/CAREGIVER ON MEASURES TO PREVENT PRESSURE ULCERS.] Future Scheduled Test NEED FOR S KILLED TEACHING AND INTERVENTION RELATED TO SURGICAL INCISION TO RIGHT KNEE. SKILLED NURSE OR TRAINED PATIENT/CAREGIVER TO PERFORM WOUND CARE USING CLEAN TECHNIQUE, CLEANSE/IRRIGATE WITH WOUND CLEANSER, PAT DRY WITH GAUZE, APPLY XEROFORM TO WOUND BED, COVER WITH ABD, WRAP WITH KERLIX, TAPE IN PLACE, WRAP WITH LISA WRAP. WOUND CARE TO BE PERFORMED DAILY AND PRN IF SOILED OR DISLODGED. 1-2 PRN SKILLED NURSE VISITS FOR WOUND CARE DUE TO COMPLICATIONS. SKILLED NURSE TO OBTAIN WOUND CULTURE PRN S/S OF INFECTION. WOUND CARE WILL BE PERFORMED BY TRAINED CAREGIVER ON DAYS WHEN SKILLED NURSE IS NOT SCHEDULED FOR A VISIT. DISCONTINUE WOUND CARE/SUPPLIES ONCE WOUND IS HEALED. [code = NEED FOR SKILLED TEACHING AND INTERVENTION RELATED TO SURGICAL INCISION TO RIGHT KNEE. SKILLED NURSE OR TRAINED PATIENT/CAREGIVER TO PERFORM WOUND CARE USING CLEAN TECHNIQUE, CLEANSE/IRRIGATE WITH WOUND CLEANSER, PAT DRY WITH GAUZE, APPLY XEROFORM TO WOUND BED, COVER WITH ABD, WRAP WITH KERLIX, TAPE IN PLACE, WRAP WITH LISA WRAP. WOUND CARE TO BE PERFORMED DAILY AND PRN IF SOILED OR DISLODGED. 1-2 PRN SKILLED NURSE VISITS FOR WOUND CARE DUE TO COMPLICATIONS. SKILLED NURSE TO OBTAIN WOUND CULTURE PRN S/S OF INFECTION. WOUND CARE WILL BE PERFORMED BY TRAINED CAREGIVER ON DAYS WHEN SKILLED NURSE IS NOT SCHEDULED FOR A VISIT. DISCONTINUE WOUND CARE/SUPPLIES ONCE WOUND IS HEALED.] Future Scheduled Test SKILLED NU RSE TO PROVIDE TEACHING ON SIGNS AND SYMPTOMS AND MANAGEMENT OF HYPERTENSION. [code = SKILLED NURSE TO PROVIDE TEACHING ON SIGNS AND SYMPTOMS AND MANAGEMENT OF HYPERTENSION.] Future Scheduled Test SKILLED NU RSE FOR O/A AND SKILLED TEACHING RELATED TO SIGNS AND SYMPTOMS AND MANAGEMENT OF ANEMIA. [code = SKILLED NURSE FOR O/A AND SKILLED TEACHING RELATED TO SIGNS AND SYMPTOMS AND MANAGEMENT OF ANEMIA.] Future Scheduled Test SKILLED NU RSE TO INSTRUCT PATIENT/CAREGIVER ON SIGNS AND SYMPTOMS, RISK FACTORS, COMPLICATIONS, AND MANAGEMENT OF ATRIAL FIBRILLATION. [code = SKILLED NURSE TO INSTRUCT PATIENT/CAREGIVER ON SIGNS AND SYMPTOMS, RISK FACTORS, COMPLICATIONS, AND MANAGEMENT OF ATRIAL FIBRILLATION.] Future Scheduled Test SKILLED NU RSE FOR O/A AND SKILLED TEACHING RELATED TO SIGNS AND SYMPTOMS AND MANAGEMENT OF RIGHT KNEE SEPTIC ARTHRITIS WITH WOUND DEHISCENCE. [code = SKILLED NURSE FOR O/A AND SKILLED TEACHING RELATED TO SIGNS AND SYMPTOMS AND MANAGEMENT OF RIGHT KNEE SEPTIC ARTHRITIS WITH WOUND DEHISCENCE.] Future Scheduled Test SKILLED NU RSE FOR O/A OF SELF-CARE DEFICITS AND TO PROVIDE TEACHING RELATED TO SAFE PROVISION OF ADLS. [code = SKILLED NURSE FOR O/A OF SELF-CARE DEFICITS AND TO PROVIDE TEACHING RELATED TO SAFE PROVISION OF ADLS.] Future Scheduled Test SKILLED NU RSE FOR O/A AND SKILLED TEACHING RELATED TO SIGNS AND SYMPTOMS OF INFECTION AND INFECTION CONTROL MEASURES. [code = SKILLED NURSE FOR O/A AND SKILLED TEACHING RELATED TO SIGNS AND SYMPTOMS OF INFECTION AND INFECTION CONTROL MEASURES.] Future Scheduled Test SKILLED NU RSE TO INSTRUCT PATIENT/CAREGIVER ON PREVENTION OF SEPSIS, AND SIGNS AND SYMPTOMS OF SEPSIS TO REPORT. [code = SKILLED NURSE TO INSTRUCT PATIENT/CAREGIVER ON PREVENTION OF SEPSIS, AND SIGNS AND SYMPTOMS OF SEPSIS TO REPORT.] Future Scheduled Test SKILLED NU RSE FOR O/A AND TEACHING ON IV SITE CARE, INFUSION PROCEDURE, SIGNS AND SYMPTOMS OF INFECTION/COMPLICATIONS. SKILLED NURSE TO OBTAIN IV ACCESS TO CENTRAL LINE VIA PICC TO TERRENCE. SKILLED NURSE OR TRAINED PATIENT/CAREGIVER TO ADMINISTER IV THERAPY OF DAPTOMYCIN 850 MCG/17 ML IN NORMAL SALINE IV PUSH OVER 2 MINUTES EVERY 24 HOURS. FLUSH LINE WITH 10 ML NORMAL SALINE BEFORE AND AFTER ANTIBIOTIC INFUSION FOLLOWED BY 5 ML HEPARIN 10U/ML. SKILLED NURSE TO CHANGE DRESSING USING STERILE TECHNIQUE WEEKLY AND PRN FOR SOILED OR LOOSE DRESSING. [code = SKILLED NURSE FOR O/A AND TEACHING ON IV SITE CARE, INFUSION PROCEDURE, SIGNS AND SYMPTOMS OF INFECTION/COMPLICATIONS. SKILLED NURSE TO OBTAIN IV ACCESS TO CENTRAL LINE VIA PICC TO TERRENCE. SKILLED NURSE OR TRAINED PATIENT/CAREGIVER TO ADMINISTER IV THERAPY OF DAPTOMYCIN 850 MCG/17 ML IN NORMAL SALINE IV PUSH OVER 2 MINUTES EVERY 24 HOURS. FLUSH LINE WITH 10 ML NORMAL SALINE BEFORE AND AFTER ANTIBIOTIC INFUSION FOLLOWED BY 5 ML HEPARIN 10U/ML. SKILLED NURSE TO CHANGE DRESSING USING STERILE TECHNIQUE WEEKLY AND PRN FOR SOILED OR LOOSE DRESSING.] Future Scheduled Test SKILLED NU RSE TO OBTAIN BLOOD SPECIMEN VIA VENIPUNCTURE AND/OR PICC LINE FOR CBC/D, CMP, CK LABS WEEKLY STARTING ON 11/03/24. DIAGNOSIS M01.X61 DIRECT INFECTION OF RIGHT KNEE AND S81.001D RIGHT KNEE OPEN WOUND. OBTAIN LAB RESULTS AND TO [facility] AND DR REYNA LIMA [phone]. [code = SKILLED NURSE TO OBTAIN BLOOD SPECIMEN VIA VENIPUNCTURE AND/OR PICC LINE FOR CBC/D, CMP, CK LABS WEEKLY STARTING ON 11/03/24. DIAGNOSIS M01.X61 DIRECT INFECTION OF RIGHT KNEE AND S81.001D RIGHT KNEE OPEN WOUND. OBTAIN LAB RESULTS AND TO [facility] AND DR REYNA LIMA [phone].] Future Scheduled Test PHYSICAL T HERAPIST TO EVALUATE PATIENT FOR WEAKNESS AND GAIT TRAINING. [code = PHYSICAL THERAPIST TO EVALUATE PATIENT FOR WEAKNESS AND GAIT TRAINING.] Future Scheduled Test OCCUPATION AL THERAPIST TO EVALUATE PATIENT FOR ADL DEFICITS. [code = OCCUPATIONAL THERAPIST TO EVALUATE PATIENT FOR ADL DEFICITS.] Goal Patient Goal - TO LEARN IVS AND HEAL KNEE Goal Provider Goal - A PLAN OF CARE WILL BE ESTABLISHED THAT MEETS PATIENT'S MCC NEEDS AND INCLUDES PATIENT GOAL FOR HOME HEALTH. Goal Provider Goal - PATIENT/CAREGIVER WILL VERBALIZE UNDERSTANDING OF EDUCATION PROVIDED ON MEDICATIONS BY THE END OF THE CERTIFICATION PERIOD. Goal Provider Goal - PATIENT/CAREGIVER WILL VERBALIZE UNDERSTANDING OF DISCHARGE PLANNING INSTRUCTIONS BY DATE OF DISCHARGE. Goal Provider Goal - PATIENT WILL HAVE SUPPORT MEASURES ESTABLISHED TO PREVENT HOSPITALIZATION AND ED USE AND PATIENT/CAREGIVER WILL VERBALIZE/DEMONSTRATE METHODS TO REDUCE AVOIDABLE HOSPITALIZATION AND ED USE BY END OF EPISODE. Goal Provider Goal - PATIENT/CAREGIVER WILL VERBALIZE/DEMONSTRATE EFFECTIVE ENVIRONMENTAL SAFETY AND FALL PREVENTION STRATEGIES, WILL REMAIN SAFE IN THE COMMUNITY, AND WILL BE FREE OF DANGER TO SELF AND OTHERS THROUGHOUT THE CERTIFICATION PERIOD. Goal Provider Goal - PATIENT/CAREGIVER WILL DEMONSTRATE UNDERSTANDING OF PHARMACOLOGIC AND NONPHARMACOLOGIC PAIN CONTROL MEASURES AND PATIENT WILL HAVE IMPROVEMENT IN PAIN INTERFERING WITH ACTIVITY EVIDENCED BY PAIN AT A LEVEL THAT IS ACCEPTABLE TO THE PATIENT AND PAIN LEVEL WITHIN ESTABLISHED PARAMETERS BY END OF CERTIFICATION PERIOD. Goal Provider Goal - PATIENT/CAREGIVER WILL VERBALIZE UNDERSTANDING OF PRESSURE ULCER PREVENTION BY END OF THE EPISODE. Goal Provider Goal - WOUND CARE WILL BE COMPLETED AND PATIENT WILL HAVE IMPROVED WOUND STATUS EVIDENCED BY NO SIGNS AND SYMPTOMS OF INFECTION, DECREASED WOUND SIZE, AND/OR NO COMPLICATIONS BY THE END OF THE CERTIFICATION PERIOD. Goal Provider Goal - PATIENT/CAREGIVER WILL VERBALIZE SIGNS AND SYMPTOMS OF HYPERTENSION AND WILL BE ABLE TO DEMONSTRATE ABILITY TO MANAGE EXACERBATION BY END OF THE EPISODE. Goal Provider Goal - PATIENT/CARGIVER WILL VERBALIZE UNDERSTANDING OF ANEMIA INCLUDING SIGNS AND SYMPTOMS, MANAGEMENT OF COMPLICATIONS, AND PRESCRIBED TREATMENT REGIMEN BY END OF EPISODE. Goal Provider Goal - PATIENT/CAREGIVER WILL VERBALIZE UNDERSTANDING OF SIGNS AND SYMPTOMS, COMPLICATIONS, AND MANAGEMENT OF ATRIAL FIBRILLATION THROUGHOUT THE CERTIFICATION PERIOD. Goal Provider Goal - PATIENT/CAREGIVER WILL VERBALIZE UNDERSTANDING OF RIGHT KNEE SEPTIC ARTHRITIS WITH WOUND DEHISCENCE INCLUDING SIGNS AND SYMPTOMS, MANAGEMENT, AND PRESCRIBED TREATMENT REGIMEN BY END OF EPISODE. Goal Provider Goal - PATIENT/CAREGIVER WILL VERBALIZE/DEMONSTRATE UNDERSTANDING OF SAFE PROVISION OF ADLS BY THE END OF THE CERTIFICATION PERIOD. Goal Provider Goal - PATIENT/CAREGIVER WILL VERBALIZE/DEMONSTRATE UNDERSTANDING OF S/S OF INFECTION AND INFECTION CONTROL MEASURES. SIGNS AND SYMPTOMS OF INFECTION WILL BE IDENTIFIED AND PHYSICIAN NOTIFIED FOR PROMPT INTERVENTION THROUGHOUT THE CERTIFICATION PERIOD. Goal Provider Goal - PATIENT WILL BE FREE FROM INFECTION AND PATIENT/CAREGIVER WILL VERBALIZE UNDERSTANDING OF SIGNS AND SYMPTOMS AND METHODS TO PREVENT SEPSIS BY END OF THE EPISODE. Goal Provider Goal - PATIENT WILL VERBALIZE/DEMONSTRATE TOLERANCE TO CENTRAL LINE ACCESS PROCEDURE, IV MEDICATION ADMINISTRATION, AND DRESSING CHANGES ORDERED THROUGH CERTIFICATION PERIOD. Goal Provider Goal - SKILLED NURSE TO PERFORM LAB PROCEDURE AND REPORT RESULTS TO PHYSICIAN. Goal Provider Goal - A PHYSICAL THERAPY EVALUATION TO BE COMPLETED WITH RECOMMENDATIONS AND/OR WRITTEN PLAN OF TREATMENT ESTABLISHED FOR PHYSICIANS SIGNATURE. Goal Provider Goal - OCCUPATIONAL THERAPY EVALUATION TO BE COMPLETED WITH RECOMMENDATIONS AND WRITTEN PLAN OF TREATMENT ESTABLISHED FOR THE PHYSICIANS SIGNATURE. Progress Notes Progress Notes <paragraph>[Visit Date: 2024 by KWASI DOE RN]:</paragraph><paragraph>PATIENT SEEN TODAY FOR SOC. LIVES ALONE. HAS SISTER THAT WAS PRESENT FOR VISIT. 74 YEAR OLD FEMALE REFERRED BY [facility] 10/21-10/29/24. SHE IS ADMITTED TO HOME HEALTH SERVICES WITH DIAGNOSIS OF RIGHT KNEE SEPTIC ARTHRITIS WITH WOUND DEHISCENCE AND SENT HOME ON IV ANTIBIOTICS THROUGH 11/09/24. PATIENT HAD RIGHT TOTAL KNEE ON 10/07/24. I D COMPLETED ON 10/22/24. ATTEMPTED TO CLOSE INCISION BUT DEHISCENCE REMAINS TO MEDIAL PART OF INCISION. PMH INCLUDES: HTN, PACEMAKER, ANEMIA, AFIB, HLD, HYPOTHYROID, SA, HLD. SHE AMBULATES WITH WALKER WITH WEAK AN SLOW GAIT. SHE REPORTS SHE CAME HOME LAST NIGHT AND SAT IN CHAIR IN KITCHEN REQUIRING EMS TO COME AND HELP HER UP. SHE IS SITTING IN RECLINER IN LIVING ROOM. NO EDEMA NOTED. PATIENT INSTRUCTED TO ELEVATE MUCH POSSIBLE THROUGHOUT THE DAY FOR EDEMA MANAGEMENT. NO OTHER SKIN BREAKDOWN NOTED. PATIENT IS ALERT AND ORIENTED X3 AND FORGETFUL AT TIMES, COOPERATIVE, AND PLEASANT. ACTION PLANS FALLS, IV, WOUND, PATIENT SATISFACTION LEFT IN FOLDER IN HOME. REVIEWED [facility]ING [facility], PATIENT RIGHTS AND RESPONSIBILITIES, CALL US FIRST, AND EMERGENCY PREPAREDNESS. VITAL SIGNS OBTAINED AND WNL. LUNG SOUNDS CLEAR THROUGHOUT, HEART RATE AND RYTHYM REGULAR, BOWEL SOUNDS PRESENT X 4. PATIENT COMPLAINS OF PAIN TO RIGHT KNEE WITH DISTRACTION POSITIONING TRAMADOL AND TYLENOL USED FOR PAIN CONTROL. MEDICATION PROFILE REVIEWED WITH MEDICATION LIST FROM HOSPITAL. PATIENT TAKING THE FOLLOWING MEDS WHICH WERE NOT LISTED ON DISCHARGE PAPERWORK AND WILL BE CLARIFIED WITH PHYSICIAN: BIOTIN, MEMORY SUPPORT, CRANBERRY, MAGNESIUM TAKING TO 50 MG, RED YEAST RICE, TURMERIC, TROSPIUM, AND VITAMIN C. DENIES ANY QUESTIONS OR CONCERNS. PATIENT MANAGES MEDICATIONS AND FILLS PILL SPACE AND MISSILE OPERATIONS SPACELIFT WEEKLY. IV ANTIBIOTIC ADMINISTRATION COMPLETED WITH PATIENT ON IV PUSH, FLUSHING OF LINE, CARE OF LINE, INFECTION CONTROL, S/S OF INFECTION. PATIENT WAS ABLE TO RETURN DEMONSTRATE PROPERLY WITH ONLY A FEW CUES NEEDED. INSTRUCTED TO CALL [facility] FIRST WITH ANY QUESTIONS OR CONCERNS. PATEINT AGREEABLE TO PLAN OF CARE. PATIENT VERBALIZED UNDERSTANDING OF ALL INSTRUCTION.</paragraph> Encounters Start Date/Time End Date/Time Encounter Type Admission Type Attending [facility] Care Department Encounter ID Discharge Date Discharge Status Discharge Condition Discharge Reason Percent Goals Met 2024-10-30 00:00:00 2024-12-28 00:00:00 Outpatient NEW ADMISSION [facility] [id number]
--- OUTSIDE RECORDS SUMMARY | 2024-11-03 14:48 | XMS_ITS | Clinical Summary ---
Author Organization [facility] Address [address] [place] [id number] Care Team Providers Care Exercise Science Instructor Name Role Phone Unavailable Primary Care Provider Unavailabl e Allergies Active Allergy Reactions Criticality Noted Date Comments Atorvastatin Other (See Comments) Low 10/29/2018 myalgias on 10 mgs daily myalgias on 10 mgs daily Azithromycin Other (See Comments) Low 10/29/2018 Other reaction(s): Unknown Causes a-fib causes afib causes afib Morphine Other (See Comments) 03/04/2022 Other reaction(s): Unknown Hallucinations Reaction: Hallucinations, Reaction: Hallucinations, Prednisone Itching,Swelling Low 10/29/2018 SWELLING,ITCHING SWELLING,ITCHING Silver High 01/04/2020 Other reaction(s): Blisters, Contact Dermatitis Sodium Hypochlorite Low 04/16/2022 Other reaction(s): Flushing (skin) Vancomycin Other (See Comments),Swelling 03/04/2022 Other reaction(s): Skin Reactions Reaction: Rash, , , Reaction: Swelling, Reaction: Rash, , , Reaction: Swelling, Medications saccharomyces boulardii (FLORASTOR) 250 MG capsule Take 250 mg by mouth in the morning. Active cholecalciferol (VITAMIN D3) 50 MCG (2000 UT) tablet tablet Take 2,000 Units by mouth in the morning. Active magnesium oxide (MAGnesium-Oxid e) 400 (240-250 Mg) MG tablet Take 400 mg by mouth daily. Active rosuvastatin (CRESTOR) 5 MG tablet Take 5 mg by mouth in the morning. Active acetaminophen (TYLENOL) 325 MG tablet Take 2 tablets (650 mg total) by mouth every 4 (four) hours as needed for mild pain, headaches or Temp > or equal to 101F (38.3C) (Headache, Fever). 0 2 Active apixaban (Eliquis) 5 MG tabletIndicatio ns:A Fib Take 1 tablet (5 mg total) by mouth in the morning and 1 tablet (5 mg total) before bedtime. Indications: A Fib. 0 2 Active furosemide (LASIX) 40 MG tablet Take 1 tablet (40 mg total) by mouth in the morning. 0 2 Active levothyroxine (SYNTHROID) 150 MCG tablet Take 1 tablet (150 mcg total) by mouth Daily at 6am. 0 2 Active potassium chloride (KLOR-CON) 20 MEQ CR tablet Take 1 tablet (20 mEq total) by mouth in the morning. 0 2 Active sotalol (BETAPACE) 160 MG tablet Take 1 tablet (160 mg total) by mouth in the morning and 1 tablet (160 mg total) before bedtime. 0 2 Active verapamil ER (CALAN-SR) 240 MG tablet Take 1 tablet (240 mg total) by mouth in the morning. 0 2 Active Active Problems Problem Noted Date Diagnosed Date Unspecified fracture of left femur 05/06/2022 Hypothyroidism 05/06/2022 Paroxysmal atrial fibrillation 05/06/2022 Hyperlipidemia 05/06/2022 Sick sinus syndrome 05/06/2022 Immunizations Immunization Administration Dates Next Due Moderna SARS-CoV-2 Vaccination 07/17/2020 Tdap 05/02/2022 Family History Medical History Relation Name Comments Cancer Father Hypertension Father Stroke Father Arthritis Mother Heart disease Mother Hypertension Mother Stroke Mother Cancer Sister Relation Name Status Comments Father Mother Sister Social History Tobacco Use Types Packs/Day Years Used Date Smoking Tobacco: Never Smokeless Tobacco: Never Alcohol Use Standard Drinks/Week Comments Never 0 (1 standard drink = 0.6 oz pur e alcohol) Comments Unknown Sex and Gender Information Value Date Recorded Sex Assigned at Not on file Legal Sex Female 1:49 PM EST Gender Identity Not on file Sexual Orientation Not on file Last Filed Vital Signs Vital Sign Reading Time Taken Comments Blood Pressure 128/65 05/23/2022 7:51 AM MAILROOM MESSENGER Pulse 76 05/23/2022 7:51 AM MAILROOM MESSENGER Temperature 36.6 C (97.9 F) 05/23/2022 7:51 AM MAILROOM MESSENGER Respiratory Rate 18 05/23/2022 7:51 AM MAILROOM MESSENGER Oxygen Saturation 97% 05/23/2022 7:51 AM MAILROOM MESSENGER Inhaled Oxygen Concentration - - Weight 148.8 kg (328 lb) 05/06/2022 6:17 PM MAILROOM MESSENGER Height 165.1 cm (5' 5) 05/06/2022 6:18 PM MAILROOM MESSENGER Body Mass Index 54.58 05/06/2022 6:17 PM MAILROOM MESSENGER Plan of Treatment Health Maintenance Due Date Last Done Comments Annual Visit Topic 02/28/1951 Hepatitis C Screening 02/28/1966 Pneumococcal Vaccine: 65+ Ye ars (1 of 4 - PCV) 02/28/1998 DTaP/Tdap/Td Vaccines (2 - T d or Tdap) 05/02/2032 05/02/2022 HIB Vaccines Aged Out No longer eligi ble based on patient's age to complete this topic HPV Vaccines Aged Out No longer eligi ble based on patient's age to complete this topic Hepatitis A Vaccines Aged Out No long er eligible based on patient's age to complete this topic Hepatitis B Vaccines Aged Out No long er eligible based on patient's age to complete this topic IPV Vaccines Aged Out No longer eligi ble based on patient's age to complete this topic Meningococcal Vaccine Aged Out No dyana galen eligible based on patient's age to complete this topic Medical Devices Implanted Type Area Medicaid Billing Specialist Device Identifier Shelf Expiration Date Model / Serial / Lot Pacemaker Pacemaker Right: Chest Wall Advance Directives * Full Resuscitation (Latest Code Status on File) Date Activated Date Inactivated Comments 05/06/2022 5:17 PM 05/23/2022 1:51 PM
--- OUTSIDE RECORDS SUMMARY | 2024-11-03 14:48 | XMS_ITS | Encounter Summary ---
Author Organization [facility] Facility Care Team Providers Care Contact Lens Edge Buffer Name Role Phone Harry Jorgensen MD Primary Care Provider + Truman Moody MD Unavailable [phone] Michael Quiros MD Unavailable [phone] Mohan Rico MD Unavailable [phone] Betty Calvin Unavailable [phone] Sybil Alex [facility] Unavailable Unavailable Encounter Details Date Type Department Care Team (Latest Contact Info) Description 01/21/2018 Orders Only MMG CLINCONV ProviderKrzysztof MD [address] [place] [address] Social History Tobacco Use Types Packs/Day Years Used Date Smoking Tobacco: Never Alcohol Use Standard Drinks/Week Comments No 0 (1 standard drink = 0.6 oz pur e alcohol) Comments Unknown Sex and Gender Information Value Date Recorded Sex Assigned at Not on file Legal Sex Female 10:24 AM PULLBOAT ENGINEER Gender Identity Female 01/15/2021 9:27 PM CDT Sexual Orientation Straight 01/15/2021 9: 27 PM CDT documented as of this encounter Plan of Treatment Not on file documented as of this encounter Procedures Procedure Name Priority Date/Time Associated Diagnosis Comments SCAN - LABS 01/21/2018 12:00 AM CDT documented in this encounter Results * SCAN - LABS (01/21/2018 12:00 AM CDT) Narrative 01/21/2018 12:00 AM CDT Ordered by an unspecified provider. us Historical Provider Final Res ult documented in this encounter Visit Diagnoses Not on filedocumented in this encounter Additional Health Concerns Infection Onset Date Last Indicated Resolved Time COVID19 10/21/2024 10/21/2024 documented as of this encounter Care Teams Contact Lens Edge Buffer Relationship Specialty Start Date End Date Harry Jorgensen MD PCP - General 09/06/16 Truman Moody MD Pesticide Applicator Cardiology 02/01/19 09/16/24 Michael Quiros MD [address] [address] Referring Physician Interventional Cardiology 09/17/24 Mohan Rico MD [address] [address] [address] [place] [address] Consulting Physician Pulmonary Disease 09/17/24 Betty Calvni PA [address] [place] [address] Physician Soil Scientist Orthopedic Surgery 10/08/24 Sybil Alex, [facility] Pharmacist Pharmacy 10/29/24 documented as of this encounter
--- OUTSIDE RECORDS SUMMARY | 2024-11-03 14:48 | XMS_ITS | Encounter Summary ---
Author Organization [facility] Facility Care Team Providers Care Credit Authorizer Name Role Phone Harry Jorgensen MD Primary Care Provider + Truman Moody MD Unavailable [phone] Michael Quiros MD Unavailable [phone] Mohan Rico MD Unavailable [phone] Betty Calvin Unavailable [phone] Sybil Alex [facility] Unavailable Unavailable Encounter Details Date Type Department Care Team (Latest Contact Info) Description 05/07/2018 Orders Only MMG CLINCONV ProviderKrzysztof MD [address] [place] [address] Social History Tobacco Use Types Packs/Day Years Used Date Smoking Tobacco: Never Alcohol Use Standard Drinks/Week Comments No 0 (1 standard drink = 0.6 oz pur e alcohol) Comments Unknown Sex and Gender Information Value Date Recorded Sex Assigned at Not on file Legal Sex Female 10:24 AM BRANCH CUSTOMER SERVICE REPRESENTATIVE Gender Identity Female 01/15/2021 9:27 PM CDT Sexual Orientation Straight 01/15/2021 9: 27 PM CDT documented as of this encounter Plan of Treatment Not on file documented as of this encounter Procedures Procedure Name Priority Date/Time Associated Diagnosis Comments PROCEDURE - RESULT 05/08/2018 12 :00 AM BRANCH CUSTOMER SERVICE REPRESENTATIVE documented in this encounter Results * PROCEDURE - RESULT (05/08/2018 12:00 AM BRANCH CUSTOMER SERVICE REPRESENTATIVE) Narrative 05/08/2018 12:00 AM BRANCH CUSTOMER SERVICE REPRESENTATIVE Ordered by an unspecified provider. us Historical Provider Final Res ult documented in this encounter Visit Diagnoses Not on filedocumented in this encounter Additional Health Concerns Infection Onset Date Last Indicated Resolved Time COVID19 10/21/2024 10/21/2024 documented as of this encounter Care Teams Credit Authorizer Relationship Specialty Start Date End Date Harry Jorgensen MD PCP - General 09/06/16 Truman Moody MD Sponge Press Operator Cardiology 02/01/19 09/16/24 Michael Quiros MD [address] [address] Referring Physician Interventional Cardiology 09/17/24 Mohan Rico MD [address] [facility] [address] [place] [address] Consulting Physician Pulmonary Disease 09/17/24 Betty Calvin PA [address] [facility] [address] [place] [address] Physician Pharmacist In Charge Orthopedic Surgery 10/08/24 Sybil Alex, [facility] Pharmacist Pharmacy 10/29/24 documented as of this encounter
--- OUTSIDE RECORDS SUMMARY | 2024-11-03 14:48 | XMS_ITS | Encounter Summary ---
Author Organization [facility] Facility Care Team Providers Care Director Digital Communications Name Role Phone Harry Jorgensen MD Primary Care Provider + Truman Moody MD Unavailable [phone] Michael Quiros MD Unavailable [phone] Mohan Rico MD Unavailable [phone] Betty Calvin Unavailable [phone] Sybil Alex [facility] Unavailable Unavailable Encounter Details Date Type Department Care Team (Latest Contact Info) Description 01/19/2018 Orders Only MMG CLINCONV ProviderKrzysztof MD [address] [place] [address] Social History Tobacco Use Types Packs/Day Years Used Date Smoking Tobacco: Never Alcohol Use Standard Drinks/Week Comments No 0 (1 standard drink = 0.6 oz pur e alcohol) Comments Unknown Sex and Gender Information Value Date Recorded Sex Assigned at Not on file Legal Sex Female 10:24 AM COMPUTER CUSTOMER SUPPORT SPECIALIST Gender Identity Female 01/15/2021 9:27 PM CDT Sexual Orientation Straight 01/15/2021 9: 27 PM CDT documented as of this encounter Plan of Treatment Not on file documented as of this encounter Procedures Procedure Name Priority Date/Time Associated Diagnosis Comments SCAN - LABS 01/19/2018 12:00 AM CDT SCAN - LABS 01/19/2018 12:00 AM CDT documented in this encounter Results * SCAN - LABS (01/19/2018 12:00 AM CDT) Narrative 01/19/2018 12:00 AM CDT Ordered by an unspecified provider. Historical Provider Final Res ult * SCAN - LABS (01/19/2018 12:00 AM CDT) Narrative 01/19/2018 12:00 AM CDT Ordered by an unspecified provider. Historical Provider Final Res ult documented in this encounter Visit Diagnoses Not on filedocumented in this encounter Additional Health Concerns Infection Onset Date Last Indicated Resolved Time COVID19 10/21/2024 10/21/2024 documented as of this encounter Care Teams Director Digital Communications Relationship Specialty Start Date End Date Harry Jorgensen MD PCP - General 09/06/16 Truman Moody MD Fluorescent Lighting Model Maker Cardiology 02/01/19 09/16/24 Michael Quiros MD [address] [place] [address] Referring Physician Interventional Cardiology 09/17/24 Mohan Rico MD [address] [place] [address] Consulting Physician Pulmonary Disease 09/17/24 Betty Calvin PA [address] [place] [address] Physician Assistant Sales Director Orthopedic Surgery 10/08/24 Sybil Alex, [facility] Pharmacist Pharmacy 10/29/24 documented as of this encounter
--- OUTSIDE RECORDS SUMMARY | 2024-11-03 14:48 | XMS_ITS | Encounter Summary ---
Author Organization [facility] Facility Care Team Providers Care Automobile Club Information Clerk Name Role Phone Harry Jorgensen MD Primary Care Provider + Truman Moody MD Unavailable [phone] Michael Quiros MD Unavailable [phone] Mohan Rico MD Unavailable [phone] Betty Calvin Unavailable [phone] Sybil Alex [facility] Unavailable Unavailable Encounter Details Date Type Department Care Team (Latest Contact Info) Description 08/15/2018 Orders Only MMG CLINCONV ProviderKrzysztof MD [address] [place] [address] Social History Tobacco Use Types Packs/Day Years Used Date Smoking Tobacco: Never Alcohol Use Standard Drinks/Week Comments No 0 (1 standard drink = 0.6 oz pur e alcohol) Comments Unknown Sex and Gender Information Value Date Recorded Sex Assigned at Not on file Legal Sex Female 10:24 AM TRIMMING INSPECTOR Gender Identity Female 01/15/2021 9:27 PM CDT Sexual Orientation Straight 01/15/2021 9: 27 PM CDT documented as of this encounter Plan of Treatment Not on file documented as of this encounter Procedures Procedure Name Priority Date/Time Associated Diagnosis Comments SCAN - LABS 08/17/2018 12:00 AM CDT documented in this encounter Results * SCAN - LABS (08/17/2018 12:00 AM CDT) Narrative 08/17/2018 12:00 AM CDT Ordered by an unspecified provider. us Historical Provider Final Res ult documented in this encounter Visit Diagnoses Not on filedocumented in this encounter Additional Health Concerns Infection Onset Date Last Indicated Resolved Time COVID19 10/21/2024 10/21/2024 documented as of this encounter Care Teams Automobile Club Information Clerk Relationship Specialty Start Date End Date Harry Jorgensen MD PCP - General 09/06/16 Truman Moody MD Retail Support Specialist Cardiology 02/01/19 09/16/24 Michael Quiros MD [address] [address] Referring Physician Interventional Cardiology 09/17/24 Mohan Rico MD [address] [facility] [address] [place] [address] Consulting Physician Pulmonary Disease 09/17/24 Betty Calvin PA [address] [facility] [address] [place] [address] Physician Coding Machine Operator Orthopedic Surgery 10/08/24 Sybil Alex, [facility] Pharmacist Pharmacy 10/29/24 documented as of this encounter
--- OUTSIDE RECORDS SUMMARY | 2024-11-03 14:48 | XMS_ITS ---
Author Organization [facility] Address [address] [place] [address] Care Team Providers Care Extermination Supervisor Name Role Phone Harry Jorgensen MD Primary Care Provider + Michael Quiros MD Unavailable [phone] Mohan Rico MD Unavailable [phone] Betty Calvin Unavailable [phone] ySbil Alex [facility] Unavailable Unavailable Daptomcin 850mg IV q 24 hours Status:Under Review (Active) Start date:10/29/2024 Enrollment date:10/29/2024 Linked medications:0.9 % sodium chloride,daptomycin (Active) Related program episode:Home Infusion (Active) Case Team Name Relationship Phone Sybil Alex [facility](Responsible Staff) Pharmacis t Continued Care and Services Coordination
--- OUTSIDE RECORDS SUMMARY | 2024-11-03 14:48 | XMS_ITS ---
Author Organization [facility] Address [address] [place], [place] [id number] Care Team Providers Care Stoper Name Role Phone ELLY Arambula Unavailable [phone] Harry Jorgensen Unavailable Unavailable SHAYNE ESCOBAR Unavailable [phone] Allergies Allergen (clinical drug ingredient) Drug/Non Drug Allergy documented on EMR Reaction Allergy Type Onset Date Status Azithromycin Unknown Drug Allergy 02/05/2017 act koby predniSONE Unknown Drug Allergy 02/05/2017 activ e montelukast Singulair Unknown Drug Allergy 02/05/2017 acti ve Silver Unknown Drug Allergy 02/05/2017 active vancomycin Vancomycin Unknown Drug Allergy 05/06/2012 acti ve REASON FOR VISIT *General care Medications Medication SIG (Take, Route, Frequency, Duration) Notes Start Date End Date Status Nabumetone 500 MG Oral Tablet ORAL nabumetone 500 MG Oral TabletOriginal Medicationnabumetone 500 MG Oral Tablet *Reorder from [facility] for eRx and Interaction Alerts* 05/27/2012 Active Encounters Encounter Location Date Provider Diagnosis [facility] [address] [place], [place] [id number] 09/20/2024 SHAYNE ESCOBAR Onychomycosis B35.1 ; Pain in right toe(s) M79.674 ; Pain in left toe(s) M79.675 ; Atherosclerosis of mash[place] arteries of extremities with intermittent claudication, bilateral legs I70.213 and Acquired keratoderma L85.1 Assessments Encounter Date Diagnosis (ICD Code) Assessment Notes Treatment Notes Treatment Clinical Notes Section Notes 09/20/2024 Onychomycosis (ICD-10 - B35.1) Nails 1-5 Bilateral were debrided extensively with nail nippers and emery board, reducing length and girth to pink healthy tissue with any subungual debris and necrotic tissue removed 09/20/2024 Pain in right toe(s) (ICD-10 - M79.674) 09/20/2024 Pain in left toe(s) (ICD-10 - M79.675) 09/20/2024 Atherosclerosis of mash[place] arteries of extremities with intermittent claudication, bilateral legs (ICD-10 - I70.213) 09/20/2024 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) Plan Of Treatment Treatment Notes Assessment Notes Onychomycosis Nails 1-5 Bilateral were debrided extensively with nail nippers and emery board, reducing length and girth to pink healthy tissue with any subungual debris and necrotic tissue removed Next Appt Details Follow Up: 9 weeks, Reason: Progress Notes * ELLIS TOBAR FDOB:1949 (74 yo F)Acc No.[id number]:09/20/2024 Patient: ELLIS WILKINS Provider: Bony Escobar DPM :1950 A ge:74 Y S ex:Female Date:09/20/2024 Address:[address] [place] [address] Subjective: * Chief Complaints: * 1 . *General care. * HPI: H PI: General care Yassine nicole presents to the office for at risk foot care. Patient states that their nails are thickened, elongated and painful. Patient states that it is aggravated by shoe gear. Onset is gradual. Patient denies being diabetic. Yassine nicole is taking prescription blood thinners. D ate last seen by Dr. Jorgensen was August 2024. I nitials IG.? * Medical History: * Family History: F ather: PRN - Father: :: Cancer,,known absent , :: Hypertension,,known absent . M other: PRN - Mother: :: Stroke,,known absent , :: Hypertension,,known absent , :: Arthritis,,known absent . Brother: SIB - Brother: . S ister: SIB - Sister: . * Social History: M igrated Social History: M igrated Social History: Smoking Status : Never smoked , History of tobacco use :. * Medications: T aking Nabumetone 500 MG Oral Tablet ORAL , Notes to Pharmacist: nabumetone 500 MG Oral TabletOriginal Medicationnabumetone 500 MG Oral Tablet *Reorder from [facility] for eRx and Interaction Alerts*, Medication List reviewed and reconciled with the patient * Allergies: A zithromycin: Allergy - Onset Date 02/05/2017, predniSONE: Allergy - Onset Date 02/05/2017, Singulair: Allergy - Onset Date 02/05/2017, Silver: Allergy - Onset Date 02/05/2017, Vancomycin: Allergy - Onset Date 05/06/2012. Objective: * Vitals: * Examination: C onstitutional: Constitutional T he patient is awake, alert, well developed, well groomed and well nourished. . D ermatologic: Skin findings: S kin is thin, atrophic and lacking pedal hair. . Nail pathology: N ails 1-5 bilateral are elongated, thick, discolored, and dystrophic with subungual debris. They are painful to palpation . Ulcer: T here is no evidence of ulceration noted at this time . Hyperkeratotic Skin Lesion T here is no evidence of hyperkeratosis . M usculoskeletal: Muscle Strength M uscle strength is 5/5 in regards to dorsiflexion, plantarflexion, inversion, and eversion in bilateral lower extremities. . Foot Structure T he foot structure is noted to be normal bilaterally . Pain on palpation T here is no pain on palpation . Gait T here is normal gait noted . N eurologic: Muscle power: 5 /5 bilaterally . Gross sensation G ross sensation is intact to light touch. . V ascular: Dorsalis pedis pulse: 0 /4 bilateral . Posterior tibial pulse: 0 /4 bilaterally . Capillary refill: g reater than 3 seconds bilaterally .? Temperature gradient: w arm to cool bilaterally . ? Assessment: * Assessment: 1. O nychomycosis - B35.1 (Primary) 2 . P ain in right toe(s) - M79.674? 3. P ain in left toe(s) - M79.675 4 . A therosclerosis of mashpee arteries of extremities with intermittent claudication, bilateral legs - I70.213 5 . A cquired keratoderma - L85.1 Plan: * Treatment: * Procedure Codes: 1 1721 DEBRIDE NAIL, 6 OR MORE, Modifiers: Q8 * Follow Up: 9 weeks * Billing Information: * Visit Code: * Procedure Codes: 81482 DEBRIDE NAIL, 6 OR MORE. Modifiers: Q8 * Electronic signature of SHAYNE ESCOBAR DPM on 11/03/2024 at 10:12 AM CDT Sign off status: Pending * Provider: Bony Escobar DPM Date: 0 09/20/2024 Generated for Jasmine turcios/Vivian/Damion on: 0 11/03/2024 10:12 AM CDT History and Physical Notes * HPI (History of Present Illness) Category Sub-Category Detail Notes Category Not es HPI General care Patient presents to the office for at risk foot care. Patient states that their nails are thickened, elongated and painful. Patient states that it is aggravated by shoe gear. Onset is gradual. Patient denies being diabetic. Patient is taking prescription blood thinners. Date last seen by Dr. Jorgensen was August 2024. Initials IG Examination Category Sub-Category Detail Notes Category Not es Constitutional Constitutional The patient is a wake, alert, well developed, well groomed and well nourished. Dermatologic Skin findings: Skin is thin, at rophic and lacking pedal hair. Nail pathology: Nails 1-5 bilateral are elongated, thick, discolored, and dystrophic with subungual debris. They are painful to palpation Ulcer: There is no evidence of ulceration noted at this time Hyperkeratotic Skin Lesion There is no e vidence of hyperkeratosis Musculoskeletal Muscle Strength Muscle strength is 5/5 in regards to dorsiflexion, plantarflexion, inversion, and eversion in bilateral lower extremities. Pain on palpation There is no pain on palpation Foot Structure The foot structure i s noted to be normal bilaterally Gait There is normal gait noted Neurologic Muscle power: 5/5 bilaterally Gross sensation Gross sensation is i ntact to light touch. Vascular Dorsalis pedis pulse: 0/4 bilateral Posterior tibial pulse: 0/4 bilaterally Capillary refill: greater than 3 secon ds bilaterally Temperature gradient: warm to cool bilat erally
--- OUTSIDE RECORDS SUMMARY | 2024-11-03 14:48 | XMS_ITS | Encounter Summary ---
Author Organization [facility] Facility Care Team Providers Care Export Clerk Name Role Phone Harry Jorgensen MD Primary Care Provider + Truman Moody MD Unavailable [phone] Michael Quiros MD Unavailable [phone] Mohan Rico MD Unavailable [phone] Betty Calvin Unavailable [phone] Sybil Alex [facility] Unavailable Unavailable Encounter Details Date Type Department Care Team (Latest Contact Info) Description 01/26/2018 Orders Only MMG CLINCONV ProviderKrzysztof MD [address] [place] [address] Social History Tobacco Use Types Packs/Day Years Used Date Smoking Tobacco: Never Alcohol Use Standard Drinks/Week Comments No 0 (1 standard drink = 0.6 oz pur e alcohol) Comments Unknown Sex and Gender Information Value Date Recorded Sex Assigned at Not on file Legal Sex Female 10:24 AM LINUX SYSTEM ADMIN Gender Identity Female 01/15/2021 9:27 PM CDT Sexual Orientation Straight 01/15/2021 9: 27 PM CDT documented as of this encounter Plan of Treatment Not on file documented as of this encounter Procedures Procedure Name Priority Date/Time Associated Diagnosis Comments SCAN - LABS 01/26/2018 12:00 AM CDT documented in this encounter Results * SCAN - LABS (01/26/2018 12:00 AM CDT) Narrative 01/26/2018 12:00 AM CDT Ordered by an unspecified provider. us Historical Provider Final Res ult documented in this encounter Visit Diagnoses Not on filedocumented in this encounter Additional Health Concerns Infection Onset Date Last Indicated Resolved Time COVID19 10/21/2024 10/21/2024 documented as of this encounter Care Teams Export Clerk Relationship Specialty Start Date End Date Harry Jorgensen MD PCP - General 09/06/16 Truman Moody MD [facility] 02/01/19 09/16/24 Michael Quiros MD [address] [address] Referring Physician Interventional Cardiology 09/17/24 Mohan Rico MD [address] [facility] [address] [place] [address] Consulting Physician Pulmonary Disease 09/17/24 Betty Calvin PA [address] [facility] [address] [place] [address] Physician Lamp Shade Maker Orthopedic Surgery 10/08/24 Sybil Alex, [facility] Pharmacist Pharmacy 10/29/24 documented as of this encounter
--- OUTSIDE RECORDS SUMMARY | 2024-11-03 14:48 | XMS_ITS | Encounter Summary ---
Author Organization [facility] Healthcare Address [address] [place] [address] Care Team Providers Care Home Health Clinical Supervisor Name Role Phone Harry Jorgensen MD Primary Care Provider + Michael Quiros MD Unavailable [phone] Mohan Rico MD Unavailable [phone] Betty Calvin Unavailable [phone] Sybil Alex [facility] Unavailable Unavailable Encounter Details Date Type Department Care Team (Late st Contact Info) Description 11/03/[address] [facility] Medical Group Orthopedics and Sports Medicine [address] [place] [address] [address] [place] [address] Betty Calvin PA [address] [place] [address] [address] [place] [address] Social History Tobacco Use Types Packs/Day Years Used Date Smoking Tobacco: Never Smokeless Tobacco: Never Alcohol Use Standard Drinks/Week Comments No 0 (1 standard drink = 0.6 oz pur e alcohol) [facility] Utilities Answer Date Recorded In the past 12 months has e electric, gas, oil, or water company threatened [...] often do you attend chur ch or yazidi services? More than 4 times per year 10/22/2024 Do you belong to any clubs o r organizations such as anabaptism groups, unions, fraternal or athletic groups, or [...] No 10/22/2024 Housing Stability Vital Sign Answer Ketih e Recorded In the last 12 months, [...] place to sleep or slept in a half-way (including now)? No 04/03/2023 Housing Stability Vital Sign Answer Keith e Recorded In the last 12 months, was t here a time when you were not able to pay the mortgage or rent on time? No 10/22/2024 In the past 12 months, how m any times have you moved where you were living? 0 10/22/2024 At any time in the past 12 m [facility], were you homeless or living in a half-way (including now)? No 10/22/2024 Personal Safety Answer Date Recorded Have you ever been in or are you currently in a harmful physical or emotional relationship or is someone making you feel afraid or unsafe? Denies 10/21/2024 Comments No Sex and Gender Information Value Date Recorded Sex Assigned at Not on file Legal Sex Female 10:24 AM INDIGO VAT TENDER CLOTH Gender Identity Female 01/15/2021 9:27 PM CDT Sexual Orientation Straight 01/15/2021 9: 27 PM CDT documented as of this encounter Miscellaneous Notes * Telephone Encounter - Mami Sy MA - 11/03/2024 2:27 PM CDT Pt called and informed us that she was on heparin infusions and asked if she should resume Xarelto on November 12. She asked if she should begin using Romtech device. I called and relayed Courtneys instructions: to wait on using the romtech device for now, and to get in touch with her PCP's office in regards to resuming Xarelto given that she's receiving heparin. Pt verbally indicated that she understood. documented in this encounter Plan of Treatment Not on file documented as of this encounter Visit Diagnoses Not on filedocumented in this encounter Additional Health Concerns Infection Onset Date Last Indicated Resolved Time COVID19 10/21/2024 10/21/2024 documented as of this encounter Care Teams Home Health Clinical Supervisor Relationship Specialty Start Date End Date Harry Jorgensen MD PCP - General 09/06/16 Michael Quiros MD [address] [place] [address] Referring Physician Interventional Cardiology 09/17/24 Mohan Rico MD [address] [facility] [address] [place] [address] [place] [address] Consulting Physician Pulmonary Disease 09/17/24 Betty Calvin PA [address] [facility] [address] [place] [address] [place] [address] Physician Core Finisher Orthopedic Surgery 10/08/24 Sybil Alex [facility] Pharmacist Pharmacy 10/29/24 documented as of this encounter
--- OUTSIDE RECORDS SUMMARY | 2024-11-03 14:48 | XMS_ITS | Encounter Summary ---
Author Organization [facility] [address] [facility] [place] [address] Care Team Providers Care Green Promotions Specialist Name Role Phone Harry Jorgensen MD Primary Care Provider [phone] Encounter Details Date Type Department Care Team (Latest Contact Info) Description 05/06/2022 12:45 PM ORGANIZATIONAL RESEARCH CONSULTANT Hospital Encounter [address] [address] [place] [address] [place] [address] [employer] Social History Tobacco Use Types Packs/Day Years [...] on file Legal Sex Female 6:34 PM ORGANIZATIONAL RESEARCH CONSULTANT Gender Identity Not on file Sexual Orientation Not on file documented as of this encounter Functional Status * Is person deaf or have serious hearing difficulty? Answer Date of Assessment Author No 05/03/2022 3:15 AM Lucia De Dios RN * Is person blind or have serious difficulty seeing? Answer Date of Assessment Author No 05/03/2022 3:15 AM Lucia De Dios RN * Does person have serious difficulty walking/climbing stairs? Answer Date of Assessment Author Yes 05/03/2022 3:15 AM Lucia De Dios RN * Does person have difficulty dressing/bathing? Answer Date of Assessment Author No 05/03/2022 3:15 AM Lucia De Dios RN * Does person have difficulty doing errands alone? Answer Date of Assessment Author No 05/03/2022 3:15 AM Lucia De Dios RN documented as of this encounter Mental Status * Does person have difficulty concentrating/remembering/making decisions? Answer Entry Date Author No 05/03/2022 3:15 AM Lucia De Dios RN documented in this encounter Plan of Treatment Not on file documented as of this encounter Visit Diagnoses Not on filedocumented in this encounter Additional Health Concerns Infection Onset Date Last Indicated Resolved Time COVID-19 Under Investigation 05/08/2022 05/08/2022 05/08/2022 3:08 PM ORGANIZATIONAL RESEARCH CONSULTANT COVID-19 Confirmed 05/08/2022 05/08/2022 4:33 AM ORGANIZATIONAL RESEARCH CONSULTANT CDIFF Under Investigation 05/17/2022 05/17/2022 11:13 PM ORGANIZATIONAL RESEARCH CONSULTANT documented as of this encounter Care Teams Green Promotions Specialist Relationship Specialty Start Date End Date Harry Jorgensen MD [address] [place] [phone] PCP - General Family Medicine 05/02/22 documented as of this encounter
--- OUTSIDE RECORDS SUMMARY | 2024-11-03 14:48 | XMS_ITS | Encounter Summary ---
Author Organization [facility] Facility Care Team Providers Care Motorized Squad Commanding Officer Name Role Phone Harry Jorgensen MD Primary Care Provider + Truman Moody MD Unavailable [phone] Michael Quiros MD Unavailable [phone] Mohan Rico MD Unavailable [phone] Betty Calvin Unavailable [phone] Sybil Alex [facility] Unavailable Unavailable Encounter Details Date Type Department Care Team (Latest Contact Info) Description 08/07/2018 Orders Only [facility] CLINCONV ProviderKrzysztof MD [address] [place] [address] Social History Tobacco Use Types Packs/Day Years Used Date Smoking Tobacco: Never Alcohol Use Standard Drinks/Week Comments No 0 (1 standard drink = 0.6 oz pur e alcohol) Comments Unknown Sex and Gender Information Value Date Recorded Sex Assigned at Not on file Legal Sex Female 10:24 AM PNEUMATIC TESTER Gender Identity Female 01/15/2021 9:27 PM CDT Sexual Orientation Straight 01/15/2021 9: 27 PM CDT documented as of this encounter Plan of Treatment Not on file documented as of this encounter Procedures Procedure Name Priority Date/Time Associated Diagnosis Comments SCAN - LABS 08/07/2018 12:00 AM PNEUMATIC TESTER documented in this encounter Results * SCAN - LABS (08/07/2018 12:00 AM PNEUMATIC TESTER) Narrative 08/07/2018 12:00 AM PNEUMATIC TESTER Ordered by an unspecified provider. us Historical Provider Final Res ult documented in this encounter Visit Diagnoses Not on filedocumented in this encounter Additional Health Concerns Infection Onset Date Last Indicated Resolved Time COVID19 10/21/2024 10/21/2024 documented as of this encounter Care Teams Motorized Squad Commanding Officer Relationship Specialty Start Date End Date Harry Jorgensen MD PCP - General 09/06/16 Truman Moody MD Damage Prevention Coordinator Cardiology 02/01/19 09/16/24 Michael Quiros MD [address] [address] Referring Physician Interventional Cardiology 09/17/24 Mohan Rico MD [address] [facility] [address] [place] [address] [place] [address] Consulting Physician Pulmonary Disease 09/17/24 Betty Calvin PA [address] [facility] [address] [place] [address] [place] [address] Physician Station Mechanic Helper Orthopedic Surgery 10/08/24 Sybil Alex, [facility] Pharmacist Pharmacy 10/29/24 documented as of this encounter
--- OUTSIDE RECORDS SUMMARY | 2024-11-03 14:48 | XMS_ITS | Patient Health Record ---
Author Organization [facility] Address [address] [facility] [address] [place] [address] Care Team Providers Care Bull Gang Worker Name Role Phone Harry Jorgensen M.D. 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 JUANITA Redd [id number] Haylie Barker Self - patient is the insured [address] [address] [id number] Haylie Barker Self - patient is the insured
--- OUTSIDE RECORDS SUMMARY | 2024-11-03 14:48 | XMS_ITS | Encounter Summary ---
Author Organization [facility] Facility Care Team Providers Care Vision Impaired Teacher Name Role Phone Harry Jorgensen MD Primary Care Provider + Truman Moody MD Unavailable [phone] Michael Quiros MD Unavailable [phone] Mohan Rico MD Unavailable [phone] Betty Calvin Unavailable [phone] Sybil Alex [facility] Unavailable Unavailable Encounter Details Date Type Department Care Team (Latest Contact Info) Description 02/27/2018 Orders Only [facility] CLINCONV ProviderKrzysztof MD [address] [place] [address] Social History Tobacco Use Types Packs/Day Years Used Date Smoking Tobacco: Never Alcohol Use Standard Drinks/Week Comments No 0 (1 standard drink = 0.6 oz pur e alcohol) Comments Unknown Sex and Gender Information Value Date Recorded Sex Assigned at Not on file Legal Sex Female 10:24 AM SMOKE ROOM OPERATOR Gender Identity Female 01/15/2021 9:27 PM CDT Sexual Orientation Straight 01/15/2021 9: 27 PM CDT documented as of this encounter Plan of Treatment Not on file documented as of this encounter Procedures Procedure Name Priority Date/Time Associated Diagnosis Comments SCAN - LABS 02/27/2018 12:00 AM CDT documented in this encounter Results * SCAN - LABS (02/27/2018 12:00 AM CDT) Narrative 02/27/2018 12:00 AM CDT Ordered by an unspecified provider. us Historical Provider Final Res ult documented in this encounter Visit Diagnoses Not on filedocumented in this encounter Additional Health Concerns Infection Onset Date Last Indicated Resolved Time COVID19 10/21/2024 10/21/2024 documented as of this encounter Care Teams Vision Impaired Teacher Relationship Specialty Start Date End Date Harry Jorgensen MD PCP - General 09/06/16 Truman Moody MD Wholesale Diamond Broker Cardiology 02/01/19 09/16/24 Michael Quiros MD [address] [address] Referring Physician Interventional Cardiology 09/17/24 Mohan Rico MD [address] [facility] [address] [place] [address] [place] [address] Consulting Physician Pulmonary Disease 09/17/24 Betty Calvin PA [address] [facility] [address] [place] [address] [place] [address] Physician Sales Project Coordinator Orthopedic Surgery 10/08/24 Sybil Alex, [facility] Pharmacist Pharmacy 10/29/24 documented as of this encounter
--- OUTSIDE RECORDS SUMMARY | 2024-11-03 14:48 | XMS_ITS | Clinical Summary ---
Author Organization [facility] Address [address] [place] [address] Care Team Providers Care Baseball Inspector Name Role Phone Harry Jorgensen MD Primary Care Provider + Michael Quiros MD Unavailable [phone] Mohan Rico MD Unavailable [phone] Betty Calvin Unavailable [phone] Sybil Alex [facility] Unavailable Unavailable Allergies Active Allergy Reactions Criticality Noted Date [...] 1 tablet (150 mcg total) by mouth signal circuit designer before breakfast Active sotaloL (BETAPACE) 160 mg [...] by mouth 2 (two) times a day 025 Active UNABLE TO FIND - ENTER DRUG [...] hours as needed for pain 30 tablet 2024 Active DAPTOmycin (CUBICIN) 50 mg/mL injectionIndica [...] 1-2 hours prior to use. 187 mL 2024 Active sodium chloride 0.9% flush syringeIndicati ons:Open knee wound, right, subsequent encounter Infuse 10 mL IV as needed for line care 56514 mL 025 2025 Active heparin 10 unit/mL syringe flush syringeIndicati ons:Open knee wound, right, subsequent encounter Infuse 5 mL (50 Units total) IV as needed (line care) 26355 mL 025 2025 Active Gemtesa 75 mg [...] of blood subcutaneous tissue available in the [employer] EMR. We shared this image with LARRY Calvin. She advised and we ordered cephalexin 500 mg p.o. t.i.d. for 5 days with the expectation that there will be a follow up imaging in Friday that in turn can be shared with the PA. The patient is so reassured. Assessment & Plan (10/16/2024 1:57 PM CDT): At her request I have discontinued the [place] and ordered tramadol 50 mg every 6 [...] We will continue the scripting of the [place]. Assessment & Plan (10/13/2024 6:07 PM CDT): This is subacute but stable and her surgeon is Dr. Marsh. We will continue her [place] every 4 hours prn Primary osteoarthritis of [...] 07/22/2022 Assessment & Plan (07/24/2022 1:17 PM FOREST PATHOLOGIST): Patient had positive guaiac test, required no imaging. On Eliquis for AFib. Iron panel done, showed deficiency. Hg from 14>>>9. Will start ferrous sulfate 325 mg daily. Monitor H&H Assessment & Plan (07/22/2022 3:03 PM FOREST PATHOLOGIST): guiac positive, no indication for scope, repeat CBC this week, continue daily iron with GI f/u Unspecified sequelae of cerebral infarction 07/10 History of ankle fusion 06/16/2022 Assessment & Plan (06/16/2022 5:15 PM FOREST PATHOLOGIST): Patient has history of right ankle fusion. [...] 04/30/2022 Assessment & Plan (04/30/2022 11:40 AM FOREST PATHOLOGIST): The patient presents with snoring and daytime [...] with mobility as tolerated Current use of longterm anticoagulation 022 Pure hypercholesterolemia, unspecified 2 Assessment & Plan (07/24/2022 1:13 PM FOREST PATHOLOGIST): On Crestor 5 mg daily Hypothyroidism 10/11/2021 Assessment & Plan (08/12/2022 1:28 PM FOREST PATHOLOGIST): Stable on Synthroid 150 mcg daily, monitor TSH Assessment & Plan (07/24/2022 1:17 PM FOREST PATHOLOGIST): TSH 3.05. Continue Synthroid 150 mcg daily Assessment & Plan (07/02/2022 2:17 PM FOREST PATHOLOGIST): Continue current Synthroid dose Assessment & Plan (06/16/2022 5:18 PM FOREST PATHOLOGIST): TSH 1.4. Continue Synthroid 150 mcg daily Primary osteoarthritis of both first carpometaca rpal joints 10/11/2020 High risk medication use 08/16/2020 Assessment & Plan (08/16/2020 10:24 AM FOREST PATHOLOGIST): Recent EKG showed QTC okay around 430. Continue 160 b.i.d. 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 Likely secondary to UTI. No fevers now since been started on antibiotic. Will repeat labs next week Encounter for monitoring diuretic therapy 2018 Assessment & Plan (02/09/2020 9:37 AM CDT): Continue Coumadin Assessment & Plan (08/04/2019 9:48 AM FOREST PATHOLOGIST): Continue Coumadin Assessment & Plan (02/03/2019 9:13 AM CDT): Continue Coumadin. Non-rheumatic tricuspid valve insufficiency 12/07 Dyslipidemia 01/28/2017 Overview (10/29/2018): improved with diet, had myalgias on atorvastatin 10 mgs daily, if needed consider low dose crestor but no stat for now Assessment & Plan (06/16/2022 5:18 PM FOREST PATHOLOGIST): Patient currently on Crestor 5 mg daily. [...] okay Assessment & Plan (08/16/2020 10:12 AM FOREST PATHOLOGIST): Rate response okay Assessment & Plan (02/09/2020 [...] Damico Assessment & Plan (08/12/2022 1:28 PM FOREST PATHOLOGIST): Rate controlled on exam, continue sotalol and verapamil, b.i.d. Eliquis Assessment & Plan (08/04/2022 7:50 PM FOREST PATHOLOGIST): Rate controlled, decrease verapamil d/t soft SBP, cont sotalol and eliquis, monitor BP daily Assessment & Plan (07/24/2022 1:13 PM FOREST PATHOLOGIST): Rate controlled. Continue verapamil 240 mg daily, 120 mg p.r.n., sotalol 160 mg b.i.d., Eliquis. Follow-up cardiology, Dr. Damico outpatient Assessment & Plan (07/22/2022 3:00 PM FOREST PATHOLOGIST): Controlled; continue verapamil, sotalol, eliquis. Follows carnoreenogdalton quiros Assessment & Plan (07/09/2022 8:09 PM FOREST PATHOLOGIST): Rate controlled on exam, continue sotalol, verapamil, eliquis Assessment & Plan (06/16/2022 5:16 PM FOREST PATHOLOGIST): Currently rate controlled. Continue home med sotalol 160 mg b.i.d., verapamil 240 mg daily, Eliquis 5 mg b.i.d.. Follow-up cardiology, Dr. Damico outpatient Assessment & Plan (06/13/2022 9:58 AM FOREST PATHOLOGIST): Rate controlled on exam, continue sotalol, verapamil, Eliquis, follows with Cardiology stefani Assessment & Plan (08/16/2020 10:26 AM FOREST PATHOLOGIST): [place] remains very low less 1%. Continue sotalol and Coumadin Assessment & Plan (02/09/2020 9:36 AM CDT): No episodes noted. Continue sotalol warfarin. Assessment & Plan (08/04/2019 9:47 AM FOREST PATHOLOGIST): Overall burden remains very low. Symptomatic when it occurs. Happen about 1% of the time. Told her she can take a for rapid male with symptoms. Otherwise continue sotalol Assessment & Plan (02/03/2019 9:13 AM CDT): Overall burden less than 1%. Symptomatic with episodes longest 9 hours. History of pacemaker 08/16/2008 Assessment & Plan (08/16/2020 10:22 AM FOREST PATHOLOGIST): Check today shows normal function. Again rare noise from isometrics noted. 50% a paced 2% V paced excellent lead function. Assessment & Plan (02/09/2020 9:37 AM CDT): Check today shows sinus rhythm. 46% a paced 7% V paced. Occasional noise on each lead. Will total burden remains low. Assessment & Plan (08/04/2019 9:48 AM FOREST PATHOLOGIST): Check today shows normal function. Underlying rhythm [...] therapy. Assessment & Plan (06/10/2023 10:51 AM FOREST PATHOLOGIST): Due to continued symptoms, the patient will [...] months. Assessment & Plan (06/16/2022 5:20 PM FOREST PATHOLOGIST): Patient has history of MARIANO, unable to [...] 90 Assessment & Plan (07/31/2022 6:18 AM FOREST PATHOLOGIST): Blood pressure soft today, vital signs log reviewed, always has controlled blood pressure. Currently on Lasix 60 mg for 5 days verapamil. Monitor blood pressure, adjust meds accordingly Assessment & Plan (07/24/2022 1:12 PM FOREST PATHOLOGIST): Blood pressure controlled. Continue Lasix 40 mg daily, verapamil. Assessment & Plan (07/05/2022 6:40 PM FOREST PATHOLOGIST): Blood pressure with mild fluctuation, overall remains below 140s. Continue same meds, no change in doses. Assessment & Plan (06/16/2022 5:17 PM FOREST PATHOLOGIST): Blood pressure controlled. Continue same meds Lasix [...] 10/18/2024 Assessment & Plan (04/23/2023 9:16 AM FOREST PATHOLOGIST): Patient is doing very well overall. Her [...] Assessment & Plan (08/22/2022 12:46 PM CDT): [place], moist, healing, continue daily dressing changes with Santyl and foam pad, follows outpatient [facility] wound clinic Assessment & Plan (08/19/2022 3:38 PM CDT): Continues to improve on serial exams, continue daily dressing changes, clean with wound cleanser, pat dry and apply Santyl to wound bed, phone cover with foam pad. Compression stockings to bilateral lower extremity daily, PT OT as tolerated Assessment & Plan (08/12/2022 1:25 PM FOREST PATHOLOGIST): Wound is healing slowly, has notably decreased in size, remains with right lower extremity edema. Continue daily dressing changes, keep skin clean and dry, elevate right lower extremity while resting. Appreciate wound MD salomóns tomorrow Assessment & Plan (08/04/2022 7:49 PM FOREST PATHOLOGIST): Complete po linezolid course x 10 days, wound clinic appt 08/09, daily dressing changes clean with wound cleanser, cover with calcium alginate. Cont PT/OT,elevate while resting Assessment & Plan (08/02/2022 11:10 AM FOREST PATHOLOGIST): Continue daily dressing changes clean with wound cleanser, pat dry apply calcium alginate, followed by wound nurse. Await final culture report, no leukocytosis on labs, LE doppler negative. Assessment & Plan (08/01/2022 9:50 AM FOREST PATHOLOGIST): Wound cleansed using wound cleanser and patted [...] change. Assessment & Plan (07/31/2022 6:19 AM FOREST PATHOLOGIST): Right leg wound stable with mild-moderate serosanguineous discharge due to increased edema lower extremities. Sutures in place, will remove tomorrow. Continue aggressive wound care, oral antibiotic doxycycline. Assessment & Plan (07/28/2022 8:32 AM FOREST PATHOLOGIST): Sutures are clean and dry, hematoma has decreased in side with dried blood underneath wound, nursing advised to clean with wound cleanser, may apply LANIE to site and cover. Complete p.o. doxycycline Assessment & Plan (07/24/2022 1:02 PM FOREST PATHOLOGIST): Patient to complete doxycycline course till 07/28/2022. Continue aggressive wound care. Suture placed 07/17/2022, will be removed in 2 weeks. Assessment & Plan (07/22/2022 2:59 PM FOREST PATHOLOGIST): Will add p.o. doxycycline due to concern for infection within formed hematoma, monitor skin daily, may clean with wound cleanser and pat dry cover with foam pad, f/u for suture removal Acute on chronic combined sy stolic (congestive) and diastolic (congestive) heart failure 07/19/2022 10/18/2024 Assessment & Plan (07/24/2022 1:12 PM FOREST PATHOLOGIST): ProBNP 6086 had edema. Received IV Lasix. For now will continue Lasix 40 mg daily. Monitor lytes and weight. If creatinine remains precious may consider increasing Lasix dose Unspecified open wound, righ t lower leg, subsequent encounter 07/19/2022 10/18/2024 Acute pyelonephritis 07/17/2022 025 Assessment & Plan (07/31/2022 6:19 AM FOREST PATHOLOGIST): Infection resolved. Renal function stable. Able to void completely. Encourage oral hydration. Assessment & Plan (07/28/2022 8:34 AM FOREST PATHOLOGIST): Resolved , renal function normal, continue to encourage oral hydration, assist with voiding with toileting schedule. Bladder scan q.shift Assessment & Plan (07/24/2022 1:04 PM FOREST PATHOLOGIST): Secondary to UTI, urine culture positive for E coli. Treated inpatient with IV ceftriaxone, IV fluid. Transition later to oral cefuroxime. Patient to continue cefuroxime till 07/26/2022. Encourage oral hydration. Will continue bladder scan Q shift x4 days make sure has no urinary retention Assessment & Plan (07/22/2022 3:05 PM FOREST PATHOLOGIST): Treated with IV ceftriaxone and IVF, renal function normal at DC, continue PO cefuroxime, encourage oral hydration Vomiting and diarrhea 07/09/20222024 Assessment & Plan (07/11/2022 9:27 AM FOREST PATHOLOGIST): Resolved, continue to advance diet as tolerated, encourage oral hydration Assessment & Plan (07/09/2022 7:44 PM FOREST PATHOLOGIST): Give prn zofran now 4mg, ADAT, consider gastroenteritis, no acute abd pain, monitor sx, notify provider for change in condition or VS Acute cystitis without hematuria 06/27/2022 10/18/2024 Assessment & Plan (07/05/2022 6:38 PM FOREST PATHOLOGIST): Patient has completed antibiotic course for UTI. Urinary symptoms improved. Encourage oral hydration. Will order labs, CBC/BMP for 07/08/22. Assessment & Plan (07/02/2022 2:15 PM FOREST PATHOLOGIST): Symptoms improving, complete p.o. doxycycline course, continue to encourage oral hydration, will recheck renal function, p.r.n. Tylenol for pain or fever Assessment & Plan (06/28/2022 11:33 AM FOREST PATHOLOGIST): Continue p.o. doxycycline course until complete, encourage oral hydration, await formal culture and sensitivities, patient appears clinically improved on exam Assessment & Plan (06/27/2022 7:42 PM FOREST PATHOLOGIST): Will treat for UTI based on clinical [...] sent Assessment & Plan (06/27/2022 6:23 PM FOREST PATHOLOGIST): Patient UA suggestive of UTI, urine culture positive for E coli> 100 K. Has been on doxycycline 100 mg b.i.d. x7 days. Based on sensitivity patient on appropriate antibiotic. Encourage oral hydration.. Will continue to monitor Chills (without fever) 06/25/202210/18 Assessment & Plan (06/26/2022 10:07 AM FOREST PATHOLOGIST): No documented fever, however patient lying under blankets, give 650 mg Tylenol p.o. now, will send UA with culture, rapid COVID swab negative. Encourage oral hydration Open wound of right buttock with complication 06/13/1908/22/2022 Assessment & Plan (07/28/2022 8:29 AM FOREST PATHOLOGIST): Healing as expected, continue to apply barrier cream, patient reports improvement since getting up and using toilet rather than bedpan or depends. Followed by wound nurse Assessment & Plan (07/16/2022 9:22 AM FOREST PATHOLOGIST): Continue to improve. Apply barrier Cream b.i.d.. Maintain schedule positioning Assessment & Plan (07/02/2022 2:17 PM FOREST PATHOLOGIST): Healing, apply barrier cream b.i.d., assist with turns and repositioning Assessment & Plan (06/28/2022 11:34 AM FOREST PATHOLOGIST): Continues to improve, may apply barrier cream, assist with mobility and transfers, assist with frequent toileting Assessment & Plan (06/27/2022 6:25 PM FOREST PATHOLOGIST): Wound right buttock improving. Continue wound care. Encourage patient to reposition/turned Assessment & Plan (06/26/2022 10:06 AM FOREST PATHOLOGIST): Healing as expected, appears superficial at this point, continue to keep area clean and dry, may apply barrier cream, reposition/turn q.2 hours Assessment & Plan (06/16/2022 5:10 PM FOREST PATHOLOGIST): Patient has wound to right buttock secondary to bedpan use. Continue Santyl, foam dressing, keep area clean and dry. Patient to be seen by wound doctor today. Patient transferred on Faye, removed today. Assessment & Plan (06/13/2022 10:02 AM FOREST PATHOLOGIST): Unable to visualize today, patient states wound is from removal of bed plunkett, seen by wound nurse at facility and will be seen by wound MD this week, continue treatment order for santal and foam dressing daily, keep area clean and dry, assist with addy Care and toileting, TRACY Faye Periprosthetic fracture arou nd internal prosthetic [...] therapy Assessment & Plan (08/12/2022 1:26 PM FOREST PATHOLOGIST): Patient has progressed with therapy, she is weight-bearing as tolerated, mobility has increased to/improved, pending discharge home soon. Follow up with Ortho as scheduled. Denies pain Assessment & Plan (08/04/2022 7:49 PM FOREST PATHOLOGIST): Tolerates therapy with weight bearing, denies pain, discusses going home soon where she lives alone, able to walk with walker. Assessment & Plan (08/02/2022 11:11 AM FOREST PATHOLOGIST): Denies pain, ambulatory with therapy, continue PT/OT with goal to return home. Assessment & Plan (07/28/2022 8:30 AM FOREST PATHOLOGIST): Continue PT OT with weight-bearing as tolerated, Tylenol for pain, mobility has improved. Goal to return home, ortho follow-up as scheduled Assessment & Plan (07/24/2022 1:19 PM FOREST PATHOLOGIST): Patient had a mechanical fall at home, sustained left distal fibular fracture around hold knee prosthesis. Initially NWB. Per Dr. Mckinney, based on repeat imaging recommended weight-bearing status to increase 25% weekly. Patient able to walk with walker, 85%weight-bearing. Denies any pain. Cont pain mgx, PT/OT. Assessment & Plan (07/22/2022 3:02 PM FOREST PATHOLOGIST): Mobility improving with 805 weight bewaring, denies pain other than baseline arthritis pain to bilateral knees, continue PT/OT with ortho f/u MD Mckinney Assessment & Plan (07/16/2022 9:23 AM FOREST PATHOLOGIST): Weight-bearing 50% on left leg, has been tolerating. Denies any pain in left leg. Continue PT/OT. Assessment & Plan (07/11/2022 9:28 AM FOREST PATHOLOGIST): Progressing with therapy, remains toe-touch weight-bearing but mobility has improved/increased, continue PT/OT, follow-up MD Mckinney Assessment & Plan (07/09/2022 8:08 PM FOREST PATHOLOGIST): Continues TTWB, tolerating well with slow improvements in condition and mobility, pain is controlled, cont PT/OT with f/u ortho amanda Assessment & Plan (07/05/2022 6:39 PM FOREST PATHOLOGIST): Patient progressing well with therapy, has now 20% weight-bearing LLE. Likely will advanced to 40% by the end of this week. Assessment & Plan (07/02/2022 2:16 PM FOREST PATHOLOGIST): Ortho follow-up complete, 20% weight-bearing to left lower extremity, continue PTOT as tolerated, mobility is limited by right knee pain as well. Continue to assist with transfers, reposition frequently while in bed Assessment & Plan (06/28/2022 11:34 AM FOREST PATHOLOGIST): Denies pain today, patient does have chronic pain to her right knee, await weight-bearing status at follow-up ortho appointment this week, continue PT OT as tolerated Assessment & Plan (06/27/2022 7:42 PM FOREST PATHOLOGIST): Remains non weight bearing but has still been able to participate in therapy, consider waiting today until symptoms improve; pt denies pain to knee has ortho f/u 06/28 Assessment & Plan (06/26/2022 10:07 AM FOREST PATHOLOGIST): Pain is controlled, continues to await ortho follow-up appointment on 06/28, remains nonweightbearing, tolerates PT OT, did get fatigued during therapy today due to fevers chills and nausea Assessment & Plan (06/16/2022 5:08 PM FOREST PATHOLOGIST): Patient had a mechanical fall at home, sustained left distal fibular fracture around hold knee prosthesis. Currently NWB. Will order left knee/fib tib x-ray, results to be faxed to her orthopedic, Dr. Mckinney. Cont pain mgx, PT/OT. Assessment & Plan (06/13/2022 9:57 AM FOREST PATHOLOGIST): Surgical incision is healed, patient denies need [...] 10/18/2024 Assessment & Plan (08/12/2022 1:26 PM FOREST PATHOLOGIST): Continue to encourage mobility as tolerated, heart healthy diet, 39 lb weight loss since admission therapy stay Lower extremity edema 10/11/20212024 Assessment & Plan (08/22/2022 12:47 PM CDT): Chronic, continue daily compression stockings, elevate legs while resting Assessment & Plan (07/31/2022 6:20 AM FOREST PATHOLOGIST): Currently on Lasix 60 mg for 1 week then to resume 40 mg. Encourage leg elevation when resting in chair, compression wrap. Monitor lytes and weight as patient on diuretic Assessment & Plan (07/28/2022 8:33 AM FOREST PATHOLOGIST): Noted increase in pitting edema to left lower extremity, increase Lasix to 60 mg daily x1 week, then resume 40 mg daily. Continue p.o. potassium supplement, weekly weights, no redness, warmth on exam. Elevate legs while resting, apply compression stocking Assessment & Plan (07/22/2022 3:01 PM FOREST PATHOLOGIST): Fluctuates, improved, morbid obesity with prolonged immobility d/t fracture, contonue lasix 40mg daily, elevate legs while resting and apply compression stockings with daily skin checks Lethargy 10/11/2021 10/18/2024 Assessment & Plan (07/16/2022 9:21 AM FOREST PATHOLOGIST): Patient has been feeling today, lethargic associated with mild nausea, though no fever. Tested for COVID was negative. Zofran 4 mg q.6 p.r.n. ordered, stat CBC/BMP, UA culture. Dyspnea on exertion 04/30/2021 10/19/19 25 Localized edema 01/16/2021 10/18/2024 Chest pressure 12/22/2018 10/18/2024 Pain and swelling of left lower extremity 11/17/2018 10/18/2024 Unilateral primary osteoarthritis, right knee 10/22/1910/18/2024 Assessment & Plan (06/13/2022 9:58 AM FOREST PATHOLOGIST): Pain with weight-bearing, complicated by obesity and [...] Obesity Assessment & Plan (08/16/2020 10:25 AM FOREST PATHOLOGIST): Encouraged dieting weight loss Assessment & Plan (02/09/2020 9:37 AM CDT): Encouraged dieting and weight loss Assessment & Plan (08/04/2019 9:48 AM FOREST PATHOLOGIST): Discussed the merits of intermittent fasting. Counseled her on extending daily fasting periods. Assessment & Plan (02/03/2019 9:18 AM CDT): Patient states she is joining weight [employer]. Referred otalgia 01/14/2012 10/18/2024 Encounters Date Type Department Care Team Description 11/03/2024 10:30 AM CDT Office Visit [facility] Medical [facility] Orthopedics and Sports Medicine [address] [place] [phone] Betty Calvin PA Postoperative wound dehiscence, subsequent encounter (Primary Dx) 11/03/2024 Telephone [facility] Orthopedics and Sports Medicine [address] [place] [phone] Betty Calvin PA 11/03/2024 Orders Only [facility] Orthopedics and Sports Medicine [address] [place] [phone] Betty Calvin PA Postoperative wound dehiscence, initial encounter (Primary Dx) 10/29/2024 Plan of Care Documentation [facility] Home Infusion Therapy [address] [place] [address] 10/29/2024 Home Infusion [facility] Home Infusion Therapy [address] [place] [address] Sybil Alex, [facility] Open knee wound, right, subsequent encounter (Primary Dx) 10/21/2024 1:50 PM CDT Anesthesia Event [facility] OR [address] [place] [id number] Amelie Delgado MD Taylor-White, Carlotta A., NP 10/21/2024 1:30 PM CDT - 10/21/2024 3:35 PM CDT Surgery [facility] OR [address] [place] [id number] Adelfo Marsh MD INCISION AND DRAINAGE RIGHT KNEE 10/21/2024 12:10 PM CDT - 10/29/2024 2:40 PM CDT Hospital Encounter [facility] [address] [facility] [address] [place] [phone] Adelfo Marsh MD Chowdhury, Farhanaz, MD Wound [...] home health skilled care 10/21/2024 NH/SNF Visit [facility] Medical Group Post Acute Care [address] [phone] Elva Hodge NP Aftercare following right knee joint replacement surgery (Primary Dx); Wound dehiscence; COVID-19 10/21/2024 Telephone [facility] Medical Group Orthopedics and Sports Medicine [address] [place] [phone] Adelfo Marsh MD 10/21/2024 Orders Only [facility] [address] [place] [phone] Elva Hodge NP 10/20/2024 2:45 PM CDT Office Visit [facility] Group Orthopedics and Sports Medicine [address] [place] [phone] Adelfo Marsh MD S/P total knee arthroplasty, right (Primary Dx); Postoperative wound dehiscence, initial encounter 10/20/2024 2:15 PM CDT - 10/20/2024 11:59 PM CDT Hospital Encounter [facility] [address] [place] [phone] S/P total knee arthroplasty, right Discharge Disposition: Discharge to home or self care 10/19/2024 Orders Only [facility] Medical [facility] Orthopedics and Sports Medicine [address] [place] [address] [address] [place] [phone] Betty Calvin PA Right knee pain, unspecified chronicity (Primary Dx) 10/18/2024 Orders Only [facility] [phone] Unknown, Notinfile 10/18/2024 NH/SNF Visit [facility] Medical [facility] Post Acute Care [address] [phone] Elva Hodge NP Aftercare following right knee joint replacement surgery (Primary Dx); Chronic combined systolic and diastolic congestive heart failure (HCC); Paroxysmal atrial fibrillation (HCC); Essential hypertension 10/15/2024 Telephone [facility] Orthopedics and Sports Medicine [address] [place] [address] [address] [place] [phone] Adelfo Marsh MD incision 10/15/2024 NH/SNF Visit [facility] Medical [facility] Post Acute Care [address] [phone] Abisai Stover MD Aftercare following right knee joint replacement surgery (Primary Dx); Paroxysmal atrial fibrillation (HCC) 10/15/2024 Results Follow-Up [facility] Medical [facility] Post Acute Care [address] [phone] Abisai Stover MD CBC without differential, Comprehensive metabolic panel, eGFR 10/15/2024 Orders Only [facility] [address] [place] [phone] Abisai Stover MD 10/14/2024 NH/SNF Visit [facility] Medical [facility] Post Acute Care [address] [phone] Abisai Stover MD Aftercare following right knee joint replacement surgery (Primary Dx); Essential hypertension; Chronic combined systolic and diastolic congestive heart failure (HCC); Paroxysmal atrial fibrillation (HCC) 10/13/2024 12:13 AM CDT - 10/13/2024 3:05 AM CDT Emergency [address] [address] Valerie Kendall MD Postoperative pain (Primary Dx); Arthralgia, unspecified joint; Alteration in skin integrity related to surgical incision Discharge Disposition: Discharge to home or self care 10/13/2024 Orders Only [facility] Medical Group Orthopedics and Sports Medicine [address] [place] [phone] Betty Calvin PA S/P total knee arthroplasty, right (Primary Dx) 10/13/2024 NH/SNF Visit [facility] Medical Group Post Acute Care [address] [phone] Abisai Stover MD Arthralgia, unspecified joint (Primary Dx); Aftercare following right knee joint replacement surgery; Paroxysmal atrial fibrillation (HCC) 10/12/2024 Orders Only [facility] Medical Group Post Acute Care [address] [phone] Trupti Hicks PA Arthralgia, unspecified joint 10/12/2024 NH/SNF Visit [facility] Medical Group Post Acute Care [address] [phone] Abisai Stover MD Arthralgia, unspecified joint (Primary Dx); Aftercare following right knee joint replacement surgery; Paroxysmal atrial fibrillation (HCC); Hyperlipidemia, unspecified hyperlipidemia type 10/07/2024 9:40 AM CDT Ancillary Procedure [facility] OR [address] [place] [address] 10/07/2024 9:35 AM CDT Ancillary Procedure [facility] OR [address] [place] [address] 10/07/2024 7:30 AM CDT - 10/07/2024 9:50 AM CDT Surgery [facility] OR [address] [place] [address] Adelfo Marsh MD RIGHT TOTAL KNEE ARTHROPLASTY 10/07/2024 7:26 AM CDT Anesthesia Event [facility] OR [address] [place] [phone] Truman Noble MD Taylor-White, Carlotta A., NP 10/07/2024 5:19 AM CDT - 10/11/2024 11:53 AM CDT Hospital Encounter [address] [address] Adelfo Marsh MD Primary osteoarthritis of right knee (Primary Dx); Aftercare following right knee joint replacement surgery Discharge Disposition: Discharge to [facility] 10/05/2024 Documentation [facility] Medical Group Orthopedics and Sports Medicine [address] [place] [phone] Mary Minor MA 09/27/2024 7:[address] [facility] [address] [place] [address] 09/17/2024 1:42 PM CDT - 09/17/2024 5:00 PM CDT Emergency [address] [address] Flakita Valverde MD Atrial fibrillation with RVR (HCC) (Primary Dx) Discharge Disposition: Discharge to home or self care 09/17/2024 9:30 AM CDT Pre-Admission Testing [facility] PreAdmission Testing [address] [place] [phone] Preop examination (Primary Dx); Primary osteoarthritis of right knee; Preop testing; Shortness of breath 09/17/2024 Orders Only [facility] PreAdmission Testing [address] [place] [address] Amelie Gonzales RN Shortness of breath (Primary Dx) 09/16/2024 Documentation [facility] [address] [place] [address] Joseline Grant, RN 09/14/2024 1:15 PM CDT Office Visit [facility] Medical Group Pulmonary [address] [place] [address] Lindsay Lopez, ROSI Obstructive sleep apnea (adult) (pediatric) (Primary Dx) 09/14/2024 10:00 AM CDT Therapy [facility] OP Physical Therapy [address] [facility] [address] [place] [address] Isabella Gamboa, PT Primary osteoarthritis of right knee (Primary Dx) 09/14/2024 Plan of Care Documentation [facility] OP Physical Therapy [address] [facility] [address] [place] [address] 09/13/2024 Orders Only [facility] PreAdmission Testing [address] [place] [phone] May Pappas, EKATERINA from Last 3 Months Immunizations Immunization Administration Dates Next Due Tdap 05/02/2022 Surgical History Surgery Date Site/Laterality Comments CARDIAC CATHETERIZATION 06/09/2006 - 06/08/2007 cardiac catheterization OTHER SURGICAL HISTORY 06/09/2005 - 06/08/2006 Atrial fibrillation: ablation OTHER SURGICAL HISTORY 06/09/2006 - 06/08/2007 puncture to heart during ablation OTHER SURGICAL HISTORY 06/09/2006 - 06/08/2007 L - lung fluid removed OTHER SURGICAL HISTORY 06/09/2007 - 06/08/2008 pace maker implanted UPPER GASTROINTESTINAL ENDOSCOPY 06/09/2008 - 06/08/2009 upper endoscopy OTHER SURGICAL HISTORY 06/09/2008 - 06/08/2009 L- knee arthoscopy OTHER SURGICAL HISTORY 06/09/2009 - 06/08/2010 heart cath ablation OTHER SURGICAL HISTORY 06/09/2009 - 06/08/2010 R - knee arthoscopy CHOLECYSTECTOMY INSERT / REPLACE / REMOVE PACEMAKER 01/08/2016 - 02/07/2016 CATARACT EXTRACTION 12/19/2020 and 12/26/2020 HYSTERECTOMY BUNIONECTOMY Bilateral DISCECTOMY ANKLE SURGERY FEMUR FRACTURE SURGERY Left ANKLE FRACTURE SURGERY Left THYROID SURGERY Left PARTIAL SKIN CANCER EXCISION TOTAL KNEE ARTHROPLASTY Left TOTAL KNEE ARTHROPLASTY 10/07/2024 Right INCISION AND DRAINAGE OF WOUND 10/21/2024 Right I&D Right Knee Surgical Site due to Wound Dehiscence Medical History Medical History Date Comments Atrial fibrillation (HCC) 2006 Atrial fibrillation Hx Other Medical foot surgury; C omments: MRD 04/21/2014 - Hx Other Medical ankle surgury; Comments: MRD 05/16/2015 - SOB (shortness of breath) Thyroid disease MASS Sleep apnea Edema Hyperlipidemia Heart disease Sinusitis Dizziness Ear problems Cancer (HCC) Hypothyroidism Periprosthetic fracture arou nd internal prosthetic left knee joint 06/07/2022 Closed bimalleolar fracture of left ankle with routine healing 04/02/2023 Family History Medical History Relation Name Comments Cancer Father Stroke Father Atrial fibrillation Mother Stroke Mother Other Other 1 No family histo ry of Cancer, colon; Other Other 2 No family histo ry of Cervical cancer; Other Other 3 No family histo ry of Ovarian cancer; Breast cancer Sister Cancer, breast ; Cancer Sister Relation Name Status Comments Father Mother Other 1 Other 2 Other 3 Sister Social History Tobacco Use Types Packs/Day Years Used Date Smoking Tobacco: Never Smokeless Tobacco: Never Tobacco Cessation:Counseling Given: Not Answered Alcohol Use Standard Drinks/Week Comments No 0 (1 standard drink = 0.6 oz pur e alcohol) [employer] Utilities Answer Date Recorded In the past 12 months has [employer], gas, oil, or water [employer] threatened to shut off services in your [...] any clubs o r organizations such as jew groups, unions, fraternal or athletic groups, or [...] place to sleep or slept in a nursing home (including now)? No 04/03/2023 Housing Stability Vital Sign Answer Keith e Recorded In the last 12 months, was t here a time when you were not able to pay the mortgage or rent on time? No 10/22/2024 In the past 12 months, how m any times have you moved where you were living? 0 10/22/2024 At any time in the past 12 m the rehabilitation institute, were you homeless or living in a nursing home (including now)? No 10/22/2024 Personal Safety Answer Date Recorded Have you ever been in or are you currently in a harmful physical or emotional relationship or is someone making you feel afraid or unsafe? Denies 10/21/2024 Comments No Sex and Gender Information Value Date Recorded Sex Assigned at Not on file Legal Sex Female 10:24 AM FOREST PATHOLOGIST Gender Identity Female 01/15/2021 9:27 PM CDT Sexual Orientation Straight 01/15/2021 9: 27 PM CDT Obstetrics History Last Filed Vital Signs Vital Sign Reading [...] 10/29/2024 2:32 PM CDT Plan of Treatment Health Maintenance Due Date Last Done Comments Depression Screening 1950 Osteoporosis Screening-Bone Density Scan 1950 Hepatitis B Screening 02/28/1966 Pneumococcal vaccine 65+ (1 of 2 - PCV) 02/28/1967 Zoster Vaccine (1 of 2) 02/28/1998 Well Visit 65+ 02/28/2013 Covid-19 Vaccine ( - 2023-2 5 season) 2024 06/05/2021, 08/10/2020, 07/17/2020 Influenza Vaccine (Season Ended) 2025 02/07/20 Fall Risk Assessment 10/29/2025 10/29/2024 DTaP/Tdap/Td Vaccine (2 - Td or Tdap) 05/02/2032 05/02/2022 Breast Cancer Screening-Mammogram Discontinued 03/04/2022, 11/07/2020, 07/30/2019, Additional history exists Hepatitis C Screening Completed 07/18/2022, 017 Medical Devices Implanted Type Area Patient Services Technician Device Identifier Shelf Expiration Date Model / Serial / Lot Lei Orthopaedics Simplex P Radiopaque Full Dose Cement Bone Sterile 6191-1-010 - [id number] Implanted:Qty: 1 on 10/07/2024 by Adelfo Marsh MD at [facility] Bone Cement Right: Knee [employer] 02/06/2027 6191-1-001 / / [id number] Pacemaker Pacemaker Chest Screw Screw Right: Ankle Synthes 3.5mm 5mm 1.35mm 50mm Cannulated Low Profile Hemispherical Head 205.250 - [id number] Implanted:Qty: 1 on 04/08/2023 by Zaki Balderas DO at [facility] Screw Left: Foot Synthes I 205.250 / / Synthes 3.5mm 5mm 1.35mm 42mm Cannulated Low Profile Hemispherical Head 205.242 - [id number] Implanted:Qty: 1 on 04/08/2023 by Zaki Balderas DO at [facility] Screw Left: Foot Synthes I 205.242 / / Synthes 3.5mm 5mm 1.35mm 34mm Cannulated Low Profile Hemispherical Head 205.234 - [id number] Implanted:Qty: 1 on 04/08/2023 by Zaki Balderas DO at [facility] Screw Synthes I 205.234 / / Vladimir Left: Leg Total Knee Left: Knee [employer]hew/[employer]/O rtho Journey Ii 10mm Bicruciate Stabilized Right 5-6 Insert Articular [id number] - [id number] Implanted:Qty: 1 on 10/07/2024 by Adelfo Marsh MD at [facility] Right: Knee [employer]/ Ortho [id number] 12/08/2032 [id number] / / [id number] [employer]/O rtho Component Patellar Kn Resurfacing Domed 3 Peg Journey 29mm Poly [id number] - [id number] Implanted:Qty: 1 on 10/07/2024 by Adelfo Marsh MD at [facility] Right: Knee [employer]/ Ortho [id number] 05/16/2034 [id number] / / [id number] [employer]hew/[employer]/O rtho Journey Bicruciate Stabilize Knee Right 6 Baseplate Tibial [id number] - [id number] Implanted:Qty: 1 on 10/07/2024 by Adelfo Marsh MD at [facility] Right: Knee [employer]/ Ortho [id number] 07/20/2034 [id number] / / [id number] Cline [employer] Nephew/[employer]/O rtho Journey Ii 70.5x65.7mm Bicruciate Stabilize Knee Right 6 [id number] - [id number] Implanted:Qty: 1 on 10/07/2024 by Adelfo Marsh MD at [facility] Right: Knee [employer]/ Ortho [id number] 03/13/2034 [id number] / / [id number] Procedures Procedure Name Priority Date/Time Associated Diagnosis [...] GRAM STAIN Routine 10/21/2024 2:16 PM CDT WY AN PROCEDURE PLACEHOLDER Routine 10/21/2024 2:13 PM CDT [place]Y AN ELECTIVE ENDOTRACHEAL AIRWAY Routine 10/21/2024 2:13 [...] NERVE IP Routine 10/07/2024 9:31 AM CDT [place] AN PROCEDURE PLACEHOLDER Routine 10/07/2024 7:45 AM CDT W[place] AN ELECTIVE ENDOTRACHEAL AIRWAY Routine 10/07/2024 7:45 [...] HEPATITIS PANEL, ACUTE Routine 07/18/2022 6:04 AM FOREST PATHOLOGIST SCREENING MAMMOGRAM BILATERAL W PAR[place] Routine 04/29/2018 10:09 AM FOREST PATHOLOGIST from Last 3 Months or Most Recently [...] LAB BLOOD ORDERABLES Quynh ervin Result MARJORIE [address] [facility] Department of Laboratories [place], [place] [id number] * (ABNORMAL) CBC without differential (10/29/2024 4:59 AM CDT) [facility] WBC 8.70 3.80 - 9.90 K/cumm Hgb 9.5(L) 11.9 - 15.5 g/dL [facility] Hct 30.5(L) 35.6 - 45.5 % [facility] Plt 229 150 - 400 K/cumm [facility] MPV 8.8(L) 9.1 - 12.3 fL [facility] RBC 3.06(L) 3.90 - 5.20 M/cumm [facility] MCV 99.7(H) 81.3 - 96.4 fL [facility] MCH 31.0 27.1 - 33.3 pg [facility] MCHC 31.1(L) 32.3 - 35.7 g/dL [facility] RDW CV 12.8 11.1 - 14.9 % [facility] RDW SD 45.9 35.7 - 48.1 fL [facility] NRBC abs 0.00 0.00 - 0.01 K/cumm [facility] Blood 10/29/2024 4:59 AM CDT 10/29/2024 5:08 AM CDT us Betty JUAREZ LAB BLOOD ORDERABLES Quynh l Result Performing Organization Address City/[facility]/ZIP Co de Phone Number [address] [employer] [place], [place] [id number] * (ABNORMAL) Creatine kinase (CK), total (10/29/2024 4:59 AM CDT) [facility] CK 17(L) 30 - 200 Units/L Blood 10/29/2024 4:59 AM CDT 10/29/2024 5:08 AM CDT Vitaliy Alcazar MD LAB BLOOD ORDERABLES Final R esult Performing Organization Address City/[facility] Co de Phone Number [address] [place] [address] * Basic metabolic panel (10/29/2024 4:59 AM CDT) Sodium 136 135 - 145 mmol/L Potassium, pl 4.1 3.3 - 4.9 mmol/L [facility] Chloride 104 97 - 110 mmol/L [facility] CO2 23 22 - 32 mmol/L [facility] Anion gap 9 2 - 15 mmol/L [facility] BUN 9 6 - 25 mg/dL [facility] Creatinine 0.61 0.60 - 1.10 mg/dL [facility] Glucose 104 70 - 199 mg/dL [facility] Comment: Interpretive Data Fasting glucose >/= 126 [...] 2022. Calcium 8.8 8.5 - 10.3 mg/dL [facility] Blood 10/29/2024 4:59 AM CDT 10/29/2024 5:08 AM CDT Betty JUAREZ LAB BLOOD ORDERABLES Quynh l Result [facility] [address] [facility] Department [place] [address] * XR Chest 1 View (10/28/2024 10:00 [...] Trav Mederos M.D. AM T: Report ID: [id number] Reading Location: [place] [address] Procedure Note Trav Mederos MD - 10/28/2024 [...] AM - Electronically signed by Trav Mederos M.D., AM T: Report ID: [id number] Reading Location: [place] [address] us Adelfo Marsh MD IMG XR PROCEDURES Quynh l Result * eGFR (10/28/2024 6:47 AM CDT) Pathologist [facility] eGFR >90 >=60 mL/min/1. 73 m2 Comment: [...] 6:47 AM CDT 10/28/2024 7:51 AM CDT us Betty JUAREZ LAB BLOOD ORDERABLES Quynh l Result [facility] [address] [facility] Department [place] [address] * (ABNORMAL) CBC without differential (10/28/2024 6:47 AM CDT) [facility] WBC 7.85 3.80 - 9.90 K/cumm Hgb 9.8(L) 11.9 - 15.5 g/dL [facility] Hct 31.4(L) 35.6 - 45.5 % [facility] Plt 248 150 - 400 K/cumm [facility] MPV 9.0(L) 9.1 - 12.3 fL [facility] RBC 3.19(L) 3.90 - 5.20 M/cumm [facility] MCV 98.4(H) 81.3 - 96.4 fL [facility] MCH 30.7 27.1 - 33.3 pg [facility] MCHC 31.2(L) 32.3 - 35.7 g/dL [facility] RDW CV 12.7 11.1 - 14.9 % [facility] RDW SD 45.3 35.7 - 48.1 fL [facility] NRBC abs 0.00 0.00 - 0.01 K/cumm [facility] Blood 10/28/2024 6:47 AM CDT 10/28/2024 7:51 AM CDT Betty JUAREZ LAB BLOOD ORDERABLES Quynh l Result [facility] [address] [facility] Department [place] [address] * Basic metabolic panel (10/28/2024 6:47 AM CDT) Sodium 137 135 - 145 mmol/L Potassium, pl 3.9 3.3 - 4.9 mmol/L [facility] Chloride 103 97 - 110 mmol/L [facility] CO2 25 22 - 32 mmol/L [facility] Anion gap 9 2 - 15 mmol/L [facility] BUN 8 6 - 25 mg/dL [facility] Creatinine 0.64 0.60 - 1.10 mg/dL [facility] Glucose 93 70 - 199 mg/dL [facility] Comment: Interpretive Data Fasting glucose >/= 126 [...] 2022. Calcium 8.9 8.5 - 10.3 mg/dL [facility] Blood 10/28/2024 6:47 AM CDT 10/28/2024 7:51 AM CDT us Betty JUAREZ LAB BLOOD ORDERABLES Quynh ervin Result [facility] [address] [facility] Department [place] [address] * X-ray chest 1 view (Portable) (10/27/2024 [...] 6:25 PM - Electronically signed by Maryam ELIAS T: Report ID: [id number] Reading Location: [place] [address] Procedure Note Maryam Rose MD - 10/27/2024 [...] 6:25 PM - Electronically signed by Maryam Daugherty: 10/27/2024 6:25 PM T: Report ID: [id number] Reading Location: [place] [address] us Vitaliy Alcazar MD IMG XR PROCEDURES Final [...] JUAREZ LAB BLOOD ORDERABLES Quynh l Result [facility] [address] [facility] Department [place] [address] * (ABNORMAL) Differential, auto (10/27/2024 7:21 AM CDT) Neutrophil abs 5.76 1.50 - 6.50 K/cumm Imm gran abs 0.08 0.00 - 0.10 K/cumm [facility] Lymphocyte abs 1.45 0.80 - 3.30 K/cumm [facility] Monocyte abs 0.88(H) 0.20 - 0.80 K/cumm [facility] Eosinophil abs 0.43 0.00 - 0.50 K/cumm [facility] Basophil abs 0.06 0.00 - 0.10 K/cumm [facility] Neutrophil pct 66.5 % [facility] Comment: Interpretive Data Percent cell count reference ranges are not reported, since discordance with absolute values may lead to misinterpretation of CBC data. Current Interpretive Data was last revised on 2017. Imm gran pct 0.9 % [facility] Comment: Interpretive Data Percent cell count reference ranges are not reported, since discordance with absolute values may lead to misinterpretation of CBC data. Current Interpretive Data was last revised on 2017. Lymphocyte pct 16.7 % [facility] Comment: Interpretive Data Percent cell count reference ranges are not reported, since discordance with absolute values may lead to misinterpretation of CBC data. Current Interpretive Data was last revised on 2017. Monocyte pct 10.2 % [facility] Comment: Interpretive Data Percent cell count reference ranges are not reported, since discordance with absolute values may lead to misinterpretation of CBC data. Current Interpretive Data was last revised on 2017. Eosinophil pct 5.0 % [facility] Comment: Interpretive Data Percent cell count reference ranges are not reported, since discordance with absolute values may lead to misinterpretation of CBC data. Current Interpretive Data was last revised on 2017. Basophil pct 0.7 % [facility] Comment: Interpretive Data Percent cell count reference ranges are not reported, since discordance with absolute values may lead to misinterpretation of CBC data. Current Interpretive Data was last revised on 2017. Blood 10/27/2024 7:21 AM CDT 10/27/2024 7:54 AM CDT us Vitaliy Alcazar MD LAB BLOOD ORDERABLES Final R esult [facility] [address] [facility] Department [place] [address] * (ABNORMAL) CBC with auto differential (10/27/2024 7:21 AM CDT) WBC 8.66 3.80 - 9.90 K/cumm Hgb 10.0(L) 11.9 - 15.5 g/dL [facility] Hct 31.5(L) 35.6 - 45.5 % [facility] Plt 288 150 - 400 K/cumm [facility] MPV 8.9(L) 9.1 - 12.3 fL [facility] RBC 3.27(L) 3.90 - 5.20 M/cumm [facility] MCV 96.3 81.3 - 96.4 fL [facility] MCH 30.6 27.1 - 33.3 pg [facility] MCHC 31.7(L) 32.3 - 35.7 g/dL [facility] RDW CV 12.6 11.1 - 14.9 % [facility] RDW SD 43.9 35.7 - 48.1 fL [facility] NRBC abs 0.00 0.00 - 0.01 K/cumm [facility] Blood 10/27/2024 7:21 AM CDT 10/27/2024 7:54 AM CDT us Vitaliy Alcazar MD LAB BLOOD ORDERABLES Final R esult [place] [id number] [facility] Department [place] [address] * Basic metabolic panel (10/27/2024 7:21 AM CDT) Sodium 138 135 - 145 mmol/L Potassium, pl 4.0 3.3 - 4.9 mmol/L [facility] Chloride 104 97 - 110 mmol/L [facility] CO2 24 22 - 32 mmol/L [facility] Anion gap 10 2 - 15 mmol/L [facility] BUN 6 6 - 25 mg/dL [facility] Creatinine 0.61 0.60 - 1.10 mg/dL [facility] Glucose 94 70 - 199 mg/dL [facility] Comment: Interpretive Data Fasting glucose >/= 126 [...] 2022. Calcium 8.6 8.5 - 10.3 mg/dL MARJ[facility]IE Blood 10/27/2024 7:21 AM CDT 10/27/2024 7:54 AM CDT us Betty JUAREZ LAB BLOOD ORDERABLES Quynh l Result Performing Organization Address [facility] Co de Phone Number [address] [place] [address] * eGFR (10/26/2024 6:09 AM CDT) eGFR >90 >=60 mL/min/1. 73 [...] ORDERABLES Final R esult Performing Organization Address City/[facility]/ZIP Co de Phone Number [address] Department [place] [address] * (ABNORMAL) Differential, auto (10/26/2024 6:09 AM CDT) Neutrophil abs 4.07 1.50 - 6.50 K/cumm Imm gran abs 0.07 0.00 - 0.10 K/cumm [facility] Lymphocyte abs 1.36 0.80 - 3.30 K/cumm [facility] Monocyte abs 0.76 0.20 - 0.80 K/cumm [facility] Eosinophil abs 0.53(H) 0.00 - 0.50 K/cumm [facility] Basophil abs 0.06 0.00 - 0.10 K/cumm [facility] Neutrophil pct 59.4 % [facility] Comment: Interpretive Data Percent cell count reference ranges are not reported, since discordance with absolute values may lead to misinterpretation of CBC data. Current Interpretive Data was last revised on 2017. Imm gran pct 1.0 % [facility] Comment: Interpretive Data Percent cell count reference ranges are not reported, since discordance with absolute values may lead to misinterpretation of CBC data. Current Interpretive Data was last revised on 2017. Lymphocyte pct 19.9 % [facility] Comment: Interpretive Data Percent cell count reference ranges are not reported, since discordance with absolute values may lead to misinterpretation of CBC data. Current Interpretive Data was last revised on 2017. Monocyte pct 11.1 % [facility] Comment: Interpretive Data Percent cell count reference ranges are not reported, since discordance with absolute values may lead to misinterpretation of CBC data. Current Interpretive Data was last revised on 2017. Eosinophil pct 7.7 % [facility] Comment: Interpretive Data Percent cell count reference ranges are not reported, since discordance with absolute values may lead to misinterpretation of CBC data. Current Interpretive Data was last revised on 2017. Basophil pct 0.9 % [facility] Comment: Interpretive Data Percent cell count reference ranges are not reported, since discordance with absolute values may lead to misinterpretation of CBC data. Current Interpretive Data was last revised on 2017. Blood 10/26/2024 6:09 AM CDT 10/26/2024 6:26 AM CDT Vitaliy Alcazar MD LAB BLOOD ORDERABLES Final R esult Performing Organization Address City/[facility] Co de Phone Number MARJORIE [address] [place] [address] * (ABNORMAL) CBC with auto differential (10/26/2024 6:09 AM CDT) [facility] WBC 6.85 3.80 - 9.90 K/cumm Hgb 9.2(L) 11.9 - 15.5 g/dL [facility] Hct 28.6(L) 35.6 - 45.5 % [facility] Plt 254 150 - 400 K/cumm [facility] MPV 8.8(L) 9.1 - 12.3 fL [facility] RBC 3.01(L) 3.90 - 5.20 M/cumm [facility] MCV 95.0 81.3 - 96.4 fL [facility] MCH 30.6 27.1 - 33.3 pg [facility] MCHC 32.2(L) 32.3 - 35.7 g/dL [facility] RDW CV 12.2 11.1 - 14.9 % [facility] RDW SD 42.5 35.7 - 48.1 fL [facility] NRBC abs 0.00 0.00 - 0.01 K/cumm [facility] Blood 10/26/2024 6:09 AM CDT 10/26/2024 6:26 AM CDT Vitaliy Alcazar MD LAB BLOOD ORDERABLES Final R esult Performing Organization Address City/[facility]/ZIP Co de Phone Number MARJORIE [address] [place] [address] * Hemoglobin A1c (10/26/2024 6:09 AM CDT) [facility] Hgb A1C 5.1 4.0 - 5.6 % Estimated Average Glucose 100 mg/dL [facility] Comment: The ADA recommends reporting an estimated Average Glucose (eAG) with all Hemoglobin A1c results using the equation derived from a study of 507 normal and diabetic adults. Minority populations were underrepresented and children were not included. (Diabetes Care 31:4608-9087, 2008). The eAG is not equivalent to a fasting glucose. Blood 10/26/2024 6:09 AM CDT 10/26/2024 6:26 AM CDT Bhupinder Bobo MD LAB BLOOD ORDERABLES Final Result Performing Organization Address [facility] Co de Phone Number [address] [place] [address] * (ABNORMAL) Creatine kinase (CK), total (10/26/2024 6:09 AM CDT) Pathologist [facility] CK 19(L) 30 - 200 Units/L Blood 10/26/2024 6:09 AM CDT 10/26/2024 6:26 AM CDT Adelfo Marsh MD LAB BLOOD ORDERABLES F inal Result Performing Organization Address [facility] de Phone Number [address] [address] * (ABNORMAL) Comprehensive metabolic panel (10/26/2024 6:09 AM CDT) Pathologist [facility] Sodium 139 135 - 145 mmol/L Potassium, pl 4.2 3.3 - 4.9 mmol/L [facility] Chloride 106 97 - 110 mmol/L [facility] CO2 25 22 - 32 mmol/L [facility] Anion gap 8 2 - 15 mmol/L [facility] BUN 6 6 - 25 mg/dL [facility] Creatinine 0.55(L) 0.60 - 1.10 mg/dL [facility] Glucose 90 70 - 199 mg/dL [facility] Comment: Interpretive Data Fasting glucose >/= 126 [...] 2022. Calcium 8.7 8.5 - 10.3 mg/dL [facility] Bilirubin, total 0.2 0.1 - 1.2 mg/dL [facility] Protein, pl 5.4(L) 6.5 - 8.5 g/dL [facility] Albumin 2.9(L) 3.5 - 5.0 g/dL [facility] Alk phos 142(H) 40 - 130 Units/L [facility] ALT 14 7 - 45 Units/L [facility] AST 22 10 - 45 Units/L [facility] Blood 10/26/2024 6:09 AM CDT 10/26/2024 6:26 AM CDT us Vitaliy Alcazar MD LAB BLOOD ORDERABLES Final R esult MARJORIE [address] [facility] Department [place] [address] * eGFR (10/25/2024 7:17 AM CDT) eGFR [...] ORDERABLES Quynh l Result Performing Organization Address City/[facility]/ZIP Co de Phone Number [address] [address] * Thyroid Function [place] (10/25/2024 7:17 AM CDT) Pathologist [facility] TSH 1.47 0.30 - 4.20 mcIUnit/mL Blood 10/25/2024 7:17 AM CDT 10/25/2024 7:59 AM CDT Bhupinder Bobo MD LAB BLOOD ORDERABLES Final Result Performing Organization Address [facility] Co de Phone Number [address] [address] * (ABNORMAL) CBC without differential (10/25/2024 7:17 AM CDT) [facility] WBC 6.32 3.80 - 9.90 K/cumm Hgb 10.2(L) 11.9 - 15.5 g/dL [facility] Hct 32.2(L) 35.6 - 45.5 % [facility] Plt 275 150 - 400 K/cumm [facility] MPV 9.0(L) 9.1 - 12.3 fL [facility] RBC 3.28(L) 3.90 - 5.20 M/cumm [facility] MCV 98.2(H) 81.3 - 96.4 fL [facility] MCH 31.1 27.1 - 33.3 pg [facility] MCHC 31.7(L) 32.3 - 35.7 g/dL [facility] RDW CV 12.0 11.1 - 14.9 % [facility] RDW SD 43.7 35.7 - 48.1 fL [facility] NRBC abs 0.00 0.00 - 0.01 K/cumm [facility] Blood 10/25/2024 7:17 AM CDT 10/25/2024 7:59 AM CDT Betty JUAREZ LAB BLOOD ORDERABLES Quynh l Result Performing Organization Address [facility] Co de Phone Number [address] [place] [address] * Magnesium (10/25/2024 7:17 AM CDT) [facility] Magnesium 2.4 1.4 - 2.5 mg/dL Blood 10/25/2024 7:17 AM CDT 10/25/2024 7:59 AM CDT Md Chi Velásquez MD LAB BLOOD ORDERABLES Final Resu lt Performing Organization Address [facility] Co de Phone Number [address] [place] [address] * (ABNORMAL) Basic metabolic panel (10/25/2024 7:17 AM CDT) Pathologist [facility] Sodium 140 135 - 145 mmol/L Potassium, pl 4.4 3.3 - 4.9 mmol/L [facility] Chloride 105 97 - 110 mmol/L [facility] CO2 26 22 - 32 mmol/L [facility] Anion gap 9 2 - 15 mmol/L [facility] BUN 6 6 - 25 mg/dL [facility] Creatinine 0.55(L) 0.60 - 1.10 mg/dL [facility] Glucose 89 70 - 199 mg/dL [facility] Comment: Interpretive Data Fasting glucose >/= 126 [...] 2022. Calcium 8.7 8.5 - 10.3 mg/dL [facility] Blood 10/25/2024 7:17 AM CDT 10/25/2024 7:59 AM CDT Betty JUAREZ LAB BLOOD ORDERABLES Quynh l Result Performing Organization Address [facility] Co de Phone Number [id number] [place] [address] * eGFR (10/24/2024 7:38 AM CDT) eGFR [...] ORDERABLES Quynh l Result Performing Organization Address [facility] Co de Phone Number MAGGY[address] [place] [address] * (ABNORMAL) CBC without differential (10/24/2024 7:38 AM CDT) [facility] WBC 6.81 3.80 - 9.90 K/cumm Hgb 9.7(L) 11.9 - 15.5 g/dL [facility] Hct 29.7(L) 35.6 - 45.5 % [facility] Plt 247 150 - 400 K/cumm [facility] MPV 9.6 9.1 - 12.3 fL [facility] RBC 3.02(L) 3.90 - 5.20 M/cumm [facility] MCV 98.3(H) 81.3 - 96.4 fL [facility] MCH 32.1 27.1 - 33.3 pg [facility] MCHC 32.7 32.3 - 35.7 g/dL [facility] RDW CV 12.3 11.1 - 14.9 % [facility] RDW SD 44.4 35.7 - 48.1 fL [facility] NRBC abs 0.00 0.00 - 0.01 K/cumm [facility] Blood 10/24/2024 7:38 AM CDT 10/24/2024 7:47 AM CDT Betty JUAREZ LAB BLOOD ORDERABLES Quynh l Result Performing Organization Address [facility] Co de Phone Number [address] [place] [address] * Magnesium (10/24/2024 7:38 AM CDT) [facility] Magnesium 2.4 1.4 - 2.5 mg/dL Blood 10/24/2024 7:38 AM CDT 10/24/2024 7:47 AM CDT Md Chi Velásquez MD LAB BLOOD ORDERABLES Final Resu lt Performing Organization Address [facility] Co de Phone Number [address] [place] [address] * (ABNORMAL) Basic metabolic panel (10/24/2024 7:38 AM CDT) Sodium 133(L) 135 - 145 mmol/L Potassium, pl 4.8 3.3 - 4.9 mmol/L [facility] Comment:Hemolyzed; Potassium value may be falsely elevated by as much as 1.0 mmol/L. Suggest redraw and reanalysis. Chloride 99 97 - 110 mmol/L [facility] CO2 26 22 - 32 mmol/L [facility] Anion gap 8 2 - 15 mmol/L [facility] BUN 9 6 - 25 mg/dL [facility] Creatinine 0.58(L) 0.60 - 1.10 mg/dL [facility] Glucose 101 70 - 199 mg/dL [facility] Comment: Interpretive Data Fasting glucose >/= 126 [...] 2022. Calcium 8.5 8.5 - 10.3 mg/dL [facility] Blood 10/24/2024 7:38 AM CDT 10/24/2024 7:47 AM CDT Betty JUAREZ LAB BLOOD ORDERABLES Quynh l Result [facility] [address] [facility] Department [place] [address] * Blood culture Blood (10/23/2024 3:47 PM CDT) Report Final Report: No growth Comment:Testing performed by : [facility], [address] [place] [address] Blood 10/23/2024 3:47 PM CDT 10/23/2024 8:22 [...] performance characteristics have been verified by the [facility]. For questions about this culture, contact the Microbiology Laboratory at [phone]. Interpretive data was last revised on 24. Md Chi Velásquez MD LAB MICROBIOLOGY - [facility] Final Result MARJORIE [address] [facility] Department [place] [address] * Blood culture Blood (10/23/2024 3:47 PM CDT) Report Final Report: No growth Comment:Testing performed by : [facility], [address] [facility]., [address] Blood 10/23/2024 3:47 PM CDT 10/23/2024 8:22 PM CDT Kodi SUTHERLAND 10/28/2024 7:00 AM CDT Collection->Peripheral 1. Blood [...] performance characteristics have been verified by the [facility]. For questions about this culture, contact the Microbiology Laboratory at [phone]. Interpretive data was last revised on 24. Md Chi Velásquez MD LAB MICROBIOLOGY - [facility] Final Result [facility] [address] [facility] Department [place] [address] * eGFR (10/23/2024 8:59 AM CDT) eGFR >90 >=60 mL/min/1. 73 [...] ORDERABLES Quynh l Result Performing Organization Address [facility] Co de Phone Number MARJORIE [address] [place] [address] * (ABNORMAL) CBC without differential (10/23/2024 8:59 AM CDT) WBC 6.64 3.80 - 9.90 K/cumm Hgb 9.6(L) 11.9 - 15.5 g/dL [facility] Hct 29.8(L) 35.6 - 45.5 % [facility] Plt 204 150 - 400 K/cumm [facility] MPV 8.8(L) 9.1 - 12.3 fL [facility] RBC 3.08(L) 3.90 - 5.20 M/cumm [facility] MCV 96.8(H) 81.3 - 96.4 fL [facility] MCH 31.2 27.1 - 33.3 pg [facility] MCHC 32.2(L) 32.3 - 35.7 g/dL [facility] RDW CV 12.4 11.1 - 14.9 % [facility] RDW SD 43.9 35.7 - 48.1 fL [facility] NRBC abs 0.00 0.00 - 0.01 K/cumm [facility] Blood 10/23/2024 8:59 AM CDT 10/23/2024 9:07 AM CDT Betty JUAREZ LAB BLOOD ORDERABLES Quynh l Result Performing Organization Address City/[facility]/ZIP Co de Phone Number [address] [place] [address] * (ABNORMAL) CRP (acute phase) (10/23/2024 8:59 AM CDT) CRP 129.0(H) <=10.0 mg/L Blood 10/23/2024 8:59 AM CDT 10/23/2024 9:07 AM CDT Kimebrly Ross [employer] BU[employer] LAB BLOOD ORDERABLES Final R esult Performing Organization Address City/[facility]/ZIP Co de Phone Number [address] Department [place] [address] * (ABNORMAL) Basic metabolic panel (10/23/2024 8:59 AM CDT) Pathologist [facility] Sodium 133(L) 135 - 145 mmol/L Potassium, pl 3.9 3.3 - 4.9 mmol/L [facility] Chloride 98 97 - 110 mmol/L [facility] CO2 25 22 - 32 mmol/L [facility] Anion gap 10 2 - 15 mmol/L [facility] BUN 10 6 - 25 mg/dL [facility] Creatinine 0.63 0.60 - 1.10 mg/dL [facility] Glucose 123 70 - 199 mg/dL [facility] Comment: Interpretive Data Fasting glucose >/= 126 [...] 2022. Calcium 8.1(L) 8.5 - 10.3 mg/dL [facility] Blood 10/23/2024 8:59 AM CDT 10/23/2024 9:07 AM CDT Betty JUAREZ LAB BLOOD ORDERABLES Quynh l Result Performing Organization Address City/[facility]/ZIP Co de Phone Number [address] Department [place] [address] * XR Chest Pa Lateral 2 Views [...] by Blake Rosas M.D. T: Report ID: [id number] Reading Location: [place] [address] Procedure Note Blake Rosas Jr., MD - [...] by Blake Rosas M.D. T: Report ID: [id number] Reading Location: [id number] Kimberly Ross [employer] BU[employer] IMG XR PROCEDURES Final Resu lt * [...] Heart J. 2006:27:330-337. 2. [facility] RW, Mojgan AM. J. AM Jeremi Cardiol: Cardiovasc Imag. 2009;2: 216- 225. Interpretive Data Last Revised Date: 2018. Blood 10/22/2024 5:40 PM CDT 10/22/2024 5:45 PM CDT Kimberly Ross NP LAB BLOOD ORDERABLES Final R esult Performing Organization Address [facility] Co de Phone Number MARJORIE [address] [facility] [place] [address] * Blood culture Blood (10/22/2024 5:40 PM CDT) Report Final Report: No growth Comment:Testing performed by : [facility], [address] [place] [address] Blood 10/22/2024 5:40 PM CDT 10/22/2024 7:14 [...] performance characteristics have been verified by the [facility]. For questions about this culture, contact the Microbiology Laboratory at [phone]. Interpretive data was last revised on 24. Kimberly Ross NP LAB MICROBIOLOGY - GENERAL O RDERABLES Final Result Performing Organization Address [facility] Co de Phone Number MARJORIE [address] [facility] [place] [address] * Blood culture Blood (10/22/2024 4:16 PM CDT) Report Final Report: No growth Comment:Testing performed by : [facility], [address] [place] [address] Blood 10/22/2024 4:16 PM CDT 10/22/2024 7:10 PM CDT Narrative MARJORIE SUTHERLAND - 10/27/2024 7:00 AM CDT Collection->Peripheral 1. Blood [...] performance characteristics have been verified by the [facility]. For questions about this culture, contact the Microbiology Laboratory at [phone]. Interpretive data was last revised on 24. Kimberly Ross NP LAB MICROBIOLOGY - GENERAL O RDERABLES Final Result MARJORIE [address] [facility] Department [place] [address] * eGFR (10/22/2024 7:45 AM CDT) eGFR [...] data was last reviewed 2021. Blood 10/22/2024 7:45 AM CDT 10/22/2024 8:08 AM CDT us Betty JUAREZ LAB BLOOD ORDERABLES Quynh ervin Result [place] [id number] [facility] Department [place] [address] * (ABNORMAL) CBC without differential (10/22/2024 7:45 AM CDT) WBC 7.20 3.80 - 9.90 K/cumm Hgb 9.5(L) 11.9 - 15.5 g/dL [facility] Hct 30.0(L) 35.6 - 45.5 % [facility] Plt 224 150 - 400 K/cumm [facility] MPV 8.8(L) 9.1 - 12.3 fL [facility] RBC 3.05(L) 3.90 - 5.20 M/cumm [facility] MCV 98.4(H) 81.3 - 96.4 fL [facility] MCH 31.1 27.1 - 33.3 pg [facility] MCHC 31.7(L) 32.3 - 35.7 g/dL [facility] RDW CV 12.5 11.1 - 14.9 % [facility] RDW SD 44.3 35.7 - 48.1 fL [facility] NRBC abs 0.00 0.00 - 0.01 K/cumm [facility] Blood 10/22/2024 7:45 AM CDT 10/22/2024 8:08 AM CDT Betty JUAREZ LAB BLOOD ORDERABLES Quynh l Result Performing Organization Address [facility]/ZIP Co de Phone Number [place] [id number] [facility] [place] [address] * (ABNORMAL) Basic metabolic panel (10/22/2024 7:45 AM CDT) Pathologist [facility] Sodium 135 135 - 145 mmol/L Potassium, pl 4.0 3.3 - 4.9 mmol/L [facility] Chloride 101 97 - 110 mmol/L [facility] CO2 25 22 - 32 mmol/L [facility] Anion gap 9 2 - 15 mmol/L [facility] BUN 12 6 - 25 mg/dL [facility] Creatinine 0.74 0.60 - 1.10 mg/dL [facility] Glucose 91 70 - 199 mg/dL [facility] Comment: Interpretive Data Fasting glucose >/= 126 [...] 2022. Calcium 8.3(L) 8.5 - 10.3 mg/dL [facility] Blood 10/22/2024 7:45 AM CDT 10/22/2024 8:08 AM CDT Betty JUAREZ LAB BLOOD ORDERABLES Quynh l Result Performing Organization Address City/[facility]/ZIP Co de Phone Number [facility] [address] [facility] [place] [address] * (ABNORMAL) Aerobic and anaerobic culture and gram stain Wound Knee, right (10/21/2024 2:16 PM CDT) Direct Specimen Exam Stain: Rare polymorphonuclear leukocytes seen. No organisms seen. Comment:Testing performed by : [facility], [address] [place] [address] Report Final Report: Few Corynebacterium tuberculostearicum This is a non-standardized susceptibility test. Rare Staphylococcus epidermidis Rare Enterococcus faecalis (.) MARJORIE Comment:Testing performed by : [facility], [address] [place] [address] Organism STAPHYLOCOCCUS EPIDERMIDIS MARJORIE Organism ENTEROCOCCUS FAECALIS MARJORIE Organism CORYNEBACTERIUM TUBERCULOSTEARICUM MARJORIE Wound (Knee, right) 10/21/2024 2:16 PM CDT 10/21/2024 6:11 PM CDT Narrative MARJORIE - 11/02/2024 1:24 PM CDT Deep right knee for culture Specimen received on an ESwab. Testing performed by [facility] ([phone]) Specimens submitted from normally sterile body sites [...] - GEN ERAL ORDERABLES Final Result MARJORIE [facility] Department [place] [address] * W[place] AN ELECTIVE ENDOTRACHEAL AIRWAY, [place] AN PROCEDURE PLACEHOLDER (10/21/2024 2:13 PM CDT) Narrative Desiree Melo CRNA - 10/21/2024 2:13 PM CDT Desiree Melo CRNA 10/21/2024 2:14 PM Airway Patient location: OR Urgency: elective Indications for airway management: anesthesia Difficult airway: no Staff: Supervising provider: Amelie Delgado MD Placed by: SENIOR MICROSTRATEGY DEVELOPER: Desiree Melo CRNA Emergent airway documentation: Risks [...] Neutrophil abs 6.85(H) 1.50 - 6.50 K/cumm [facility] Comment:[address] [address] Imm gran abs 0.11(H) 0.00 - 0.10 K/cumm [facility] Comment:[address] [address] Lymphocyte abs 0.79(L) 0.80 - 3.30 K/cumm [facility] Comment:[address] [address] Monocyte abs 0.91(H) 0.20 - 0.80 K/cumm [facility] Comment:[address] [address] Eosinophil abs 0.12 0.00 - 0.50 K/cumm [facility] Comment:[address] [address] Basophil abs 0.06 0.00 - 0.10 K/cumm [facility] Comment:[address] [address] Neutrophil pct 77.5 % [facility] Comment: Interpretive Data Percent cell count reference ranges are not reported, since discordance with absolute values may lead to misinterpretation of CBC data. Current Interpretive Data was last revised on 2017. [address] [address] Imm gran pct 1.2 % [facility] Comment: Interpretive Data Percent cell count reference ranges are not reported, since discordance with absolute values may lead to misinterpretation of CBC data. Current Interpretive Data was last revised on 2017. [address] [address] Lymphocyte pct 8.9 % [facility] Comment: Interpretive Data Percent cell count reference ranges are not reported, since discordance with absolute values may lead to misinterpretation of CBC data. Current Interpretive Data was last revised on 2017. [address] [address] Monocyte pct 10.3 % [facility] Comment: Interpretive Data Percent cell count reference ranges are not reported, since discordance with absolute values may lead to misinterpretation of CBC data. Current Interpretive Data was last revised on 2017. [address] [address] Eosinophil pct 1.4 % MARJORIE SUTHERLAND Comment: Interpretive Data Percent cell count reference ranges are not reported, since discordance with absolute values may lead to misinterpretation of CBC data. Current Interpretive Data was last revised on 2017. [address] [address] Basophil pct 0.7 % MARJORIE SUTHERLAND Comment: Interpretive Data Percent cell count reference ranges are not reported, since discordance with absolute values may lead to misinterpretation of CBC data. Current Interpretive Data was last revised on 2017. [address] [address] Blood 10/21/2024 6:37 AM CDT 10/21/2024 7:26 AM CDT Elva Hodge O[employer] BU[employer]ER LAB BLOOD ORDERABLES Final Result MARJORIE [address] Department [place] [address] * (ABNORMAL) CBC with auto differential (10/21/2024 6:37 AM CDT) WBC 8.84 3.80 - 9.90 K/cumm MARJORIE SUTHERLAND Comment:[address] [address] Hgb 11.6(L) 11.9 - 15.5 g/dL MARJORIE SUTHERLAND Comment:[address] [address] Hct 36.0 35.6 - 45.5 % MARJORIE SUTHERLAND Comment:[address] [address] Plt 269 150 - 400 K/cumm MARJORIE SUTHERLAND Comment:[address] [address] MPV 9.2 9.1 - 12.3 fL MARJORIE SUTHERLAND Comment:[address] [address] RBC 3.61(L) 3.90 - 5.20 M/cumm MARJORIE Comment:[address] [address] MCV 99.7(H) 81.3 - 96.4 fL MARJORIE Comment:[address], [address] MCH 32.1 27.1 - 33.3 pg MARJORIE SUTHERLAND Comment:[address], [address] MCHC 32.2(L) 32.3 - 35.7 g/dL MARJORIE Comment:[address], [address] RDW CV 12.4 11.1 - 14.9 % MARJORIE Comment:[address], [address] RDW SD 45.1 35.7 - 48.1 fL MARJORIE Comment:[address], [address] NRBC abs 0.00 0.00 - 0.01 K/cumm MARJORIE Comment:[address] [address] Blood 10/21/2024 6:37 AM CDT 10/21/2024 7:26 AM CDT us Elva Hodge ORE BUYER LAB BLOOD ORDERABLES Final Result MARJORIE [address] [facility] Department [place] [address] * eGFR (10/21/2024 6:31 AM CDT) eGFR [...] Current interpretive data was last reviewed 2021. [facility], [address] [place] [address]., [address] Blood 10/21/2024 6:31 AM CDT 10/21/2024 7:26 AM CDT us Elva Hodge ORE BUYER LAB BLOOD ORDERABLES Final Result [facility] [address] Department [place] [address] * (ABNORMAL) Comprehensive metabolic panel (10/21/2024 6:31 AM CDT) Sodium 136 135 - 145 mmol/L MARJORIE Comment:[address] [address] Potassium, pl 3.8 3.3 - 4.9 mmol/L MARJORIE Comment:[address] [address] Chloride 100 97 - 110 mmol/L MARJORIE Comment:[address] [address] CO2 26 22 - 32 mmol/L MARJORIE Comment:[address] [address] Anion gap 10 2 - 15 mmol/L MARJORIE Comment:[address] [address] BUN 9 6 - 25 mg/dL MARJORIE Comment:[address] [address] Creatinine 0.67 0.60 - 1.10 mg/dL MARJORIE Comment:[address] [address] Glucose 92 70 - 199 mg/dL MARJORIE [...] Current interpretive data was last revised 2022. [facility], [address] [place]., [address] Calcium 9.2 8.5 - 10.3 mg/dL MARJORIE Comment:[address] [address] Bilirubin, total 0.3 0.1 - 1.2 mg/dL MARJORIE Comment:[address] [address] Protein, pl 6.5 6.5 - 8.5 g/dL MARJORIE Comment:[address] [address] Albumin 3.3(L) 3.5 - 5.0 g/dL MARJORIE Comment:[address] [address] Alk phos 144(H) 40 - 130 Units/L MARJORIE Comment:[address] [address] ALT 20 7 - 45 Units/L MARJORIE Comment:[address] [address] AST 32 10 - 45 Units/L [facility] Comment:[address] [address] Blood 10/21/2024 6:31 AM CDT 10/21/2024 7:26 AM CDT us Elva Hodge NP LAB BLOOD ORDERABLES Final Result MARJORIE [address] Department [place] [address] * XR Knee Right 3 Views (10/20/2024 [...] by Blake Rosas M.D. T: Report ID: [id number] Reading Location: [id number] Procedure Note Blake Rosas Jr., MD - [...] by Blake Rosas M.D. T: Report ID: [id number] Reading Location: [id number] Betty JUAREZ IMG XR PROCEDURES Final R esult * (ABNORMAL) Aerobic and anaerobic culture and gram stain Wound Knee, right (10/18/2024 9:30 AM CDT) Direct Specimen Exam Stain: Rare polymorphonuclear leukocytes seen. Rare Gram Positive Cocci MARJORIE SUTHERLAND Comment:[facility] al, [address] [place] [address] Report Final Report: Moderate Enterococcus faecalis Moderate Staphylococcus epidermidis (.) MARJORIE SUTHERLAND Comment:[facility] al, [address] [place] [address] Organism ENTEROCOCCUS FAECALIS MARJORIE Organism STAPHYLOCOCCUS EPIDERMIDIS MARJORIE Wound (Knee, right) 10/18/2024 9:30 AM CDT 10/18/2024 8:08 PM CDT Narrative MARJORIE SUTHERLAND - 10/25/2024 12:48 PM CDT Specimen received on an ESwab. Testing performed by [facility] ([phone]) Specimens submitted from normally sterile body sites [...] GENERAL ORD ERABLES Final Result MARJORIE SUTHERLAND [address] [facility] Department [place] [address] * eGFR (10/15/2024 5:41 AM CDT) eGFR [...] Current interpretive data was last reviewed 2021. [facility], [address] [place] [address]., [address] Blood 10/15/2024 5:41 AM CDT 10/15/2024 7:09 AM CDT us Abisai Stover MD LAB BLOOD ORDERABLES Final R esult MARJORIE [address] Department [place] [address] * (ABNORMAL) CBC without differential (10/15/2024 5:41 AM CDT) Pathologist [facility] WBC 9.03 3.80 - 9.90 K/cumm MARJORIE SUTHERLAND Comment:[address] [address] Hgb 12.3 11.9 - 15.5 g/dL MARJORIE SUTHERLAND Comment:[address] [address] Hct 38.6 35.6 - 45.5 % MARJORIE SUTHERLAND Comment:[address] [address] Plt 289 150 - 400 K/cumm MARJORIE Comment:[address] [address] MPV 9.4 9.1 - 12.3 fL [facility] Comment:[address] [address] RBC 3.82(L) 3.90 - 5.20 M/cumm MARJORIE MH Comment:[address] [address] MCV 101.0(H) 81.3 - 96.4 fL MARJORIE MH Comment:[address] [address] MCH 32.2 27.1 - 33.3 pg [facility] Comment:[address], [address] MCHC 31.9(L) 32.3 - 35.7 g/dL MARJORIE MH Comment:[address], [address] RDW CV 12.3 11.1 - 14.9 % MARJORIE Comment:[address], [address] RDW SD 45.9 35.7 - 48.1 fL MARJORIE Comment:[address] [address] NRBC abs 0.00 0.00 - 0.01 K/cumm MARJORIE Comment:[address] [address] Blood 10/15/2024 5:41 AM CDT 10/15/2024 7:09 AM CDT us Abisai Stover MD LAB BLOOD ORDERABLES Final R esult MARJORIE [address] [facility] Department [place] [address] * (ABNORMAL) Comprehensive metabolic panel (10/15/2024 5:41 AM CDT) Sodium 137 135 - 145 mmol/L MARJORIE Comment:[address] [address] Potassium, pl 4.4 3.3 - 4.9 mmol/L [facility] Comment:[address] [address] Chloride 99 97 - 110 mmol/L [facility] Comment:[address] [address] CO2 27 22 - 32 mmol/L [facility] Comment:[address] [address] Anion gap 11 2 - 15 mmol/L [facility] Comment:[address] [address] BUN 13 6 - 25 mg/dL [facility] Comment:[address] [address] Creatinine 0.60 0.60 - 1.10 mg/dL [facility] Comment:[address] [address] Glucose 82 70 - 199 mg/dL [facility] Comment: Interpretive Data Fasting glucose >/= 126 [...] Current interpretive data was last revised 2022. [facility], [address] [place]., [address] Calcium 9.7 8.5 - 10.3 mg/dL [facility] Comment:[address] [address] Bilirubin, total 0.4 0.1 - 1.2 mg/dL [facility] Comment:[address] [address] Protein, pl 6.5 6.5 - 8.5 g/dL [facility] Comment:[address] [address] Albumin 3.3(L) 3.5 - 5.0 g/dL [facility] Comment:[address] [address] Alk phos 128 40 - 130 Units/L MARJORIE Comment:[address] [address] ALT 32 7 - 45 Units/L MARJORIE Comment:[address] [address] AST 33 10 - 45 Units/L MARJORIE Comment:[address] [address] Blood 10/15/2024 5:41 AM CDT 10/15/2024 7:09 AM CDT us Abisai Stover MD LAB BLOOD ORDERABLES Final R esult Performing Organization Address [facility] Co de Phone Number [facility] [address] [facility] Department [place] [address] * eGFR (10/13/2024 1:44 AM CDT) eGFR 90 >=60 mL/min/1. 73 m2 Comment: [...] ORDERABLES Fin al Result Performing Organization Address [facility]/ZIP Co de Phone Number [facility] [address] [facility] Department [place] [address] * (ABNORMAL) Differential, auto (10/13/2024 1:44 AM CDT) Neutrophil abs 4.80 1.50 - 6.50 K/cumm Imm gran abs 0.11(H) 0.00 - 0.10 K/cumm [facility] Lymphocyte abs 1.35 0.80 - 3.30 K/cumm [facility] Monocyte abs 1.07(H) 0.20 - 0.80 K/cumm [facility] Eosinophil abs 0.39 0.00 - 0.50 K/cumm [facility] Basophil abs 0.06 0.00 - 0.10 K/cumm [facility] Neutrophil pct 61.6 % [facility] Comment: Interpretive Data Percent cell count reference ranges are not reported, since discordance with absolute values may lead to misinterpretation of CBC data. Current Interpretive Data was last revised on 2017. Imm gran pct 1.4 % [facility] Comment: Interpretive Data Percent cell count reference ranges are not reported, since discordance with absolute values may lead to misinterpretation of CBC data. Current Interpretive Data was last revised on 2017. Lymphocyte pct 17.4 % [facility] Comment: Interpretive Data Percent cell count reference ranges are not reported, since discordance with absolute values may lead to misinterpretation of CBC data. Current Interpretive Data was last revised on 2017. Monocyte pct 13.8 % [facility] Comment: Interpretive Data Percent cell count reference ranges are not reported, since discordance with absolute values may lead to misinterpretation of CBC data. Current Interpretive Data was last revised on 2017. Eosinophil pct 5.0 % [facility] Comment: Interpretive Data Percent cell count reference ranges are not reported, since discordance with absolute values may lead to misinterpretation of CBC data. Current Interpretive Data was last revised on 2017. Basophil pct 0.8 % [facility] Comment: Interpretive Data Percent cell count reference ranges are not reported, since discordance with absolute values may lead to misinterpretation of CBC data. Current Interpretive Data was last revised on 2017. Blood 10/13/2024 1:44 AM CDT 10/13/2024 1:46 AM CDT Valerie Kendall MD LAB BLOOD ORDERABLES Fin al Result Performing Organization Address [facility] de Phone Number MARJORIE [address] [place] [address] * (ABNORMAL) CBC with auto differential (10/13/2024 1:44 AM CDT) WBC 7.78 3.80 - 9.90 K/cumm Hgb 10.7(L) 11.9 - 15.5 g/dL [facility] Hct 33.2(L) 35.6 - 45.5 % [facility] Plt 193 150 - 400 K/cumm [facility] MPV 9.1 9.1 - 12.3 fL [facility] RBC 3.36(L) 3.90 - 5.20 M/cumm [facility] MCV 98.8(H) 81.3 - 96.4 fL [facility] MCH 31.8 27.1 - 33.3 pg [facility] MCHC 32.2(L) 32.3 - 35.7 g/dL [facility] RDW CV 12.2 11.1 - 14.9 % [facility] RDW SD 44.1 35.7 - 48.1 fL [facility] NRBC abs 0.00 0.00 - 0.01 K/cumm [facility] Blood 10/13/2024 1:44 AM CDT 10/13/2024 1:46 AM CDT Valerie Kendall MD LAB BLOOD ORDERABLES Fin al Result Performing Organization Address [facility] Co de Phone Number [address] [place] [address] * (ABNORMAL) CRP (acute phase) (10/13/2024 1:44 AM CDT) Pathologist [facility] CRP 146.0(H) <=10.0 mg/L Blood 10/13/2024 1:44 AM CDT 10/13/2024 1:46 AM CDT us Valerie Kendall MD LAB BLOOD ORDERABLES Fin al Result [facility] [address] [facility] Department [place] [address] * (ABNORMAL) Comprehensive metabolic panel (10/13/2024 1:44 AM CDT) Sodium 134(L) 135 - 145 mmol/L Potassium, pl 4.4 3.3 - 4.9 mmol/L [facility] Chloride 100 97 - 110 mmol/L [facility] CO2 25 22 - 32 mmol/L [facility] Anion gap 9 2 - 15 mmol/L [facility] BUN 14 6 - 25 mg/dL [facility] Creatinine 0.70 0.60 - 1.10 mg/dL [facility] Glucose 104 70 - 199 mg/dL [facility] Comment: Interpretive Data Fasting glucose >/= 126 [...] 2022. Calcium 9.0 8.5 - 10.3 mg/dL [facility] Bilirubin, total 0.4 0.1 - 1.2 mg/dL [facility] Protein, pl 5.8(L) 6.5 - 8.5 g/dL [facility] Albumin 2.9(L) 3.5 - 5.0 g/dL [facility] Alk phos 110 40 - 130 Units/L [facility] ALT 40 7 - 45 Units/L [facility] AST 37 10 - 45 Units/L [facility] Blood 10/13/2024 1:44 AM CDT 10/13/2024 1:46 AM CDT us Valerie Kendall MD LAB BLOOD ORDERABLES Fin al Result Performing Organization Address [facility] de Phone Number [address] [address] * eGFR (10/11/2024 6:24 AM CDT) Pathologist [facility] eGFR >90 >=60 mL/min/1. 73 m2 Comment: [...] ORDERABLES Quynh l Result Performing Organization Address [facility] Co de Phone Number MAG[address] [place] [address] * (ABNORMAL) CBC without differential (10/11/2024 6:24 AM CDT) [facility] WBC 8.11 3.80 - 9.90 K/cumm Hgb 10.9(L) 11.9 - 15.5 g/dL [facility] Hct 34.0(L) 35.6 - 45.5 % [facility] Plt 154 150 - 400 K/cumm [facility] MPV 9.8 9.1 - 12.3 fL [facility] RBC 3.37(L) 3.90 - 5.20 M/cumm [facility] MCV 100.9(H) 81.3 - 96.4 fL [facility] MCH 32.3 27.1 - 33.3 pg [facility] MCHC 32.1(L) 32.3 - 35.7 g/dL [facility] RDW CV 12.2 11.1 - 14.9 % [facility] RDW SD 45.7 35.7 - 48.1 fL [facility] NRBC abs 0.00 0.00 - 0.01 K/cumm [facility] Blood 10/11/2024 6:24 AM CDT 10/11/2024 6:37 AM CDT Betty JUAREZ LAB BLOOD ORDERABLES Quynh l Result [facility] [address] [facility] Department [place] [address] * (ABNORMAL) Basic metabolic panel (10/11/2024 6:24 AM CDT) Sodium 133(L) 135 - 145 mmol/L Potassium, pl 4.3 3.3 - 4.9 mmol/L [facility] Chloride 98 97 - 110 mmol/L [facility] CO2 28 22 - 32 mmol/L [facility] Anion gap 7 2 - 15 mmol/L [facility] BUN 10 6 - 25 mg/dL [facility] Creatinine 0.60 0.60 - 1.10 mg/dL [facility] Glucose 107 70 - 199 mg/dL [facility] Comment: Interpretive Data Fasting glucose >/= 126 [...] 2022. Calcium 8.7 8.5 - 10.3 mg/dL [facility] Blood 10/11/2024 6:24 AM CDT 10/11/2024 6:37 AM CDT Betty JUAREZ LAB BLOOD ORDERABLES Quynh l Result Performing Organization Address [facility] Co de Phone Number MAGGY[address] [place] [address] * eGFR (10/10/2024 4:39 AM CDT) eGFR >90 >=60 mL/min/1. 73 [...] ORDERABLES Quynh l Result Performing Organization Address [facility]/ZIP Co de Phone Number MAGGY[address] [place] [address] * (ABNORMAL) CBC without differential (10/10/2024 4:39 AM CDT) Pathologist [facility] WBC 9.40 3.80 - 9.90 K/cumm Hgb 11.1(L) 11.9 - 15.5 g/dL [facility] Hct 34.7(L) 35.6 - 45.5 % [facility] Plt 128(L) 150 - 400 K/cumm [facility] MPV 10.0 9.1 - 12.3 fL [facility] RBC 3.48(L) 3.90 - 5.20 M/cumm [facility] MCV 99.7(H) 81.3 - 96.4 fL [facility] MCH 31.9 27.1 - 33.3 pg [facility] MCHC 32.0(L) 32.3 - 35.7 g/dL [facility] RDW CV 12.1 11.1 - 14.9 % [facility] RDW SD 44.6 35.7 - 48.1 fL [facility] NRBC abs 0.00 0.00 - 0.01 K/cumm [facility] Blood 10/10/2024 4:39 AM CDT 10/10/2024 5:05 AM CDT us Betty JUAREZ LAB BLOOD ORDERABLES Quynh l Result [facility] [address] [facility] Department [place] [address] * (ABNORMAL) Basic metabolic panel (10/10/2024 4:39 AM CDT) [facility] Sodium 134(L) 135 - 145 mmol/L Potassium, pl 3.9 3.3 - 4.9 mmol/L [facility] Chloride 100 97 - 110 mmol/L [facility] CO2 27 22 - 32 mmol/L [facility] Anion gap 7 2 - 15 mmol/L [facility] BUN 10 6 - 25 mg/dL [facility] Creatinine 0.63 0.60 - 1.10 mg/dL [facility] Glucose 104 70 - 199 mg/dL [facility] Comment: Interpretive Data Fasting glucose >/= 126 [...] 2022. Calcium 8.6 8.5 - 10.3 mg/dL MARJORIE SUTHERLAND Blood 10/10/2024 4:39 AM CDT 10/10/2024 5:05 AM CDT Betty JUAREZ LAB BLOOD ORDERABLES Quynh l Result Performing Organization Address City/State/[facility] Co de Phone Number MARJORIE [address] [facility] Department [place] [address] * eGFR (10/09/2024 6:36 AM CDT) eGFR >90 >=60 mL/min/1. 73 [...] ORDERABLES Quynh l Result Performing Organization Address City/State/[facility] Co de Phone Number [address] [place] [address] * (ABNORMAL) CBC without differential (10/09/2024 6:36 AM CDT) [facility] WBC 12.22(H) 3.80 - 9.90 K/cumm Hgb 11.9 11.9 - 15.5 g/dL [facility] Hct 36.8 35.6 - 45.5 % [facility] Plt 131(L) 150 - 400 K/cumm [facility] MPV 9.4 9.1 - 12.3 fL [facility] RBC 3.75(L) 3.90 - 5.20 M/cumm [facility] MCV 98.1(H) 81.3 - 96.4 fL [facility] MCH 31.7 27.1 - 33.3 pg [facility] MCHC 32.3 32.3 - 35.7 g/dL [facility] RDW CV 12.3 11.1 - 14.9 % [facility] RDW SD 44.7 35.7 - 48.1 fL [facility] NRBC abs 0.00 0.00 - 0.01 K/cumm [facility] Blood 10/09/2024 6:36 AM CDT 10/09/2024 6:41 AM CDT us Betty JUAREZ LAB BLOOD ORDERABLES Quynh l Result Performing Organization Address [facility] Co de Phone Number [address] [place] [address] * (ABNORMAL) Basic metabolic panel (10/09/2024 6:36 AM CDT) [facility] Sodium 134(L) 135 - 145 mmol/L Potassium, pl 4.2 3.3 - 4.9 mmol/L [facility] Chloride 99 97 - 110 mmol/L [facility] CO2 25 22 - 32 mmol/L [facility] Anion gap 10 2 - 15 mmol/L [facility] BUN 8 6 - 25 mg/dL [facility] Creatinine 0.61 0.60 - 1.10 mg/dL [facility] Glucose 111 70 - 199 mg/dL [facility] Comment: Interpretive Data Fasting glucose >/= 126 [...] 2022. Calcium 8.8 8.5 - 10.3 mg/dL [facility] Blood 10/09/2024 6:36 AM CDT 10/09/2024 6:41 AM CDT Betty JUAREZ LAB BLOOD ORDERABLES Quynh l Result [facility] [address] [facility] Department [place] [address] * eGFR (10/08/2024 3:25 AM CDT) eGFR 87 >=60 mL/min/1. 73 m2 Comment: [...] ORDERABLES Quynh l Result Performing Organization Address [facility] Co de Phone Number MARJORIE [address] [place] [address] * (ABNORMAL) CBC without differential (10/08/2024 3:25 AM CDT) Pathologist [facility] WBC 10.34(H) 3.80 - 9.90 K/cumm Hgb 12.2 11.9 - 15.5 g/dL [facility] Hct 37.2 35.6 - 45.5 % [facility] Plt 125(L) 150 - 400 K/cumm [facility] MPV 9.5 9.1 - 12.3 fL [facility] RBC 3.70(L) 3.90 - 5.20 M/cumm [facility] MCV 100.5(H) 81.3 - 96.4 fL [facility] MCH 33.0 27.1 - 33.3 pg [facility] MCHC 32.8 32.3 - 35.7 g/dL [facility] RDW CV 12.4 11.1 - 14.9 % [facility] RDW SD 46.4 35.7 - 48.1 fL [facility] NRBC abs 0.00 0.00 - 0.01 K/cumm [facility] Blood 10/08/2024 3:25 AM CDT 10/08/2024 4:06 AM CDT Betty JUAREZ LAB BLOOD ORDERABLES Quynh l Result Performing Organization Address City/[facility]/ZIP Co de Phone Number MARJORIE [address] [place] [address] * Basic metabolic panel (10/08/2024 3:25 AM CDT) Pathologist [facility] Sodium 137 135 - 145 mmol/L Potassium, pl 4.7 3.3 - 4.9 mmol/L [facility] Comment:Hemolyzed; Potassium value may be falsely elevated by as much as 1.0 mmol/L. Suggest redraw and reanalysis. Chloride 103 97 - 110 mmol/L [facility] CO2 26 22 - 32 mmol/L [facility] Anion gap 8 2 - 15 mmol/L [facility] BUN 12 6 - 25 mg/dL [facility] Creatinine 0.72 0.60 - 1.10 mg/dL [facility] Glucose 91 70 - 199 mg/dL [facility] Comment: Interpretive Data Fasting glucose >/= 126 [...] 2022. Calcium 8.7 8.5 - 10.3 mg/dL [facility] Blood 10/08/2024 3:25 AM CDT 10/08/2024 4:06 AM CDT Betty JUAREZ LAB BLOOD ORDERABLES Quynh l Result Performing Organization Address City/[facility]/ZIP Co de Phone Number [address] [place] [address] * POCT glucose (10/07/2024 11:30 AM CDT) [facility] Glucose, POC 116 70 - 199 mg/dL Glucose comment 1 RN/MD Notified [facility] Blood 10/07/2024 11:3 0 AM CDT 10/07/2024 11:30 AM CDT Adelfo Marsh MD LAB POCT ORDERABLES - DEVICE Final Result Performing Organization Address City/[facility]/ZIP Co de Phone Number [address] [place] [address] * XR Knee Right 1 or 2 [...] by Blake Rosas M.D. T: Report ID: [id number] Reading Location: [id number] Procedure Note Blake Rosas Jr., MD - [...] by Blake Rosas M.D. T: Report ID: [id number] Reading Location: [id number] Betty JUAREZ IMG XR PROCEDURES Final R esult * POCUS INJ SCIATIC NERVE (10/07/2024 9:31 AM CDT) Narrative [id number] - 10/07/2024 9:31 AM CDT This procedure was performed and interpreted by the provider. Please refer to the provider's procedure/OR operative note for results. Adelfo Marsh MD POCUS ORDERABLES Final Result Performing Organization Address [facility] de Phone Number [email or web address] * POCUS INJ FEMORAL NERVE (10/07/2024 9:31 AM CDT) Narrative [email or web address] - 10/07/2024 9:31 AM CDT This procedure was performed and interpreted by the provider. Please refer to the provider's procedure/OR operative note for results. Adelfo Marsh MD POCUS ORDERABLES Final Result Performing Organization Address [facility] Phone Number [email or web address] * [place] AN ELECTIVE ENDOTRACHEAL AIRWAY, [place] AN PROCEDURE PLACEHOLDER (10/07/2024 7:45 AM CDT) Narrative Angelica Almazan CRNA - 10/07/2024 7:45 AM CDT Angelica Almazan CRNA 10/07/2024 7:46 AM Airway Patient location: OR Urgency: elective Indications for airway management: anesthesia Difficult airway: no Staff: Supervising provider: Truman Noble MD Placed by: SENIOR MICROSTRATEGY DEVELOPER: Angelica Almazan CRNA Emergent airway documentation: Risks [...] with: silk tape Number of attempts: 1 Truman Noble MD ANESTHESIA ORDERABLES Final R esult * ABO/Rh (10/07/2024 6:23 AM CDT) ABO/Rh B Positive Blood 10/07/2024 6:23 AM CDT 10/07/2024 6:26 AM CDT Adelfo Marsh MD LAB BLOOD BANK TEST OR DERABLES Final Result Performing Organization Address [facility] Co de Phone Number [address] [place] [address] * Antibody screen (10/07/2024 6:23 AM CDT) Tadeo, indirect, Gel Interpretation Negative ABSC Blood 10/07/2024 6:23 AM CDT 10/07/2024 6:26 AM CDT Adelfo Marsh MD LAB BLOOD BANK TEST OR DERABLES Final Result Performing Organization Address [facility] de Phone Number [address] [place] [address] * eGFR (09/27/2024 7:49 AM CDT) eGFR [...] was last reviewed 2021. Testing performed by: [address] [id number] Blood 09/27/2024 7:49 AM CDT 09/27/2024 8:22 AM CDT us Michael Quiros MD LAB BLOOD ORDERABLES Final R esult [facility] [address] [facility] Department [place] [address] * Basic metabolic panel (09/27/2024 7:49 AM CDT) Sodium 139 135 - 145 mmol/L Comment:Testing performed by : [address] [address] Potassium, [address] 3.9 3.3 - 4.9 mmol/L MARJORIE Comment:Testing performed by : [address] [address] Chloride 104 97 - 110 mmol/L MARJORIE Comment:Testing performed by : [address] [address] CO2 26 22 - 32 mmol/L MARJORIE Comment:Testing performed by : [address] [address] Anion gap 9 2 - 15 mmol/L MARJORIE Comment:Testing performed by : [address] [address] BUN 24 6 - 25 mg/dL MARJORIE Comment:Testing performed by : [address] [address] Creatinine 0.74 0.60 - 1.10 mg/dL MARJORIE Comment:Testing performed by : [address] [address] Glucose 86 70 - 199 mg/dL MARJORIE Comment: Interpretive [...] was last revised 2022. Testing performed by: [facility], [address] [place] [address]., [address] Calcium 9.5 8.5 - 10.3 mg/dL MARJORIE Comment:Testing performed by : [address] [address] Blood 09/27/2024 7:49 AM CDT 09/27/2024 8:22 AM CDT Michael Quiros MD LAB BLOOD ORDERABLES Final R esult MARJORIE [address] [facility] Department [place] [address] * ECG 12 lead (09/17/2024 4:21 PM CDT) Ventricular Rate EKG/Min 73 BPM [facility] Atrial Rate 84 BPM [facility] QRS-Interval (MSEC) 90 ms [facility] QT-Interval (MSEC) 236 ms [facility] QTc 259 ms [facility] R [place] 74 degrees [facility] T [place] -87 degrees [facility] Diagnosis Atrial fibrillation with frequent ventricular-pac ed complexes Nonspecific ST and T wave abnormality Abnormal ECG When compared with ECG of 17-SEP-2024 10:03, Electronic ventricular pacemaker has replaced Atrial fibrillation Confirmed by JUAN DANIEL RIVERA M.D. ([id number]) on 09/20/2024 11:55:32 PM [facility] 09/17/2024 4:21 PM CDT 09/20/2024 11:55 PM CDT us Shivani Blanco ORE BUYER ECG ORDERABLES Quynh l Result [facility] * Troponin T high-sensitivity 2-hour (09/17/2024 12:14 PM CDT) Trop T hs 10 <=14 ng/L Comment: Interpretive Data For further hscTnT resources including the diagnostic algorithm and an aid in interpretation, copy and paste this link: https://nrl.testcatalog.org/show/hsTrop Current Interpretive Data last revised 2020. Trop T hs delta -3 ng/L [facility] Trop T hs interp Insignificant [facility] Blood 09/17/2024 12:1 4 PM CDT 09/17/2024 12:17 PM CDT Macey Musa PA LAB BLOOD ORDERABLES Final Resul t Performing Organization Address [facility] Co de Phone Number [place] [id number] [facility] [place] [address] * Magnesium (09/17/2024 12:14 PM CDT) Pathologist [facility] Magnesium 1.9 1.4 - 2.5 mg/dL Blood 09/17/2024 12:1 4 PM CDT 09/17/2024 12:17 PM CDT Maria G Oliva ORE BUYER LAB BLOOD ORDERABLES Final Result Performing Organization Address [facility] de Phone Number [facility] [address] [facility] [place] [address] * XR Chest 1 Vw Portable (if [...] Maryam Rose M.D. TW T: Report ID: [id number] Reading Location: [id number] Procedure Note Maryam Rose MD - 09/17/2024 [...] Maryam Rose M.D. TW T: Report ID: [id number] Reading Location: [id number] Flakita Valverde MD IMG XR PROCEDURES Final Result * Protime-INR (09/17/2024 10:25 AM CDT) PT 13.7 12.0 - 14.6 sec INR 1.0 0.9 - 1.2 MARJORIE Comment: Ref Range High Interpretive data Oral anticoagulant therapeutic ranges: Venous thromboembolism prophylaxis or treatment: 2.0-3.0 CARDIOLOGY Standard range: 2.0-3.0 High-intensity range: 2.5-3.5 Refer to indication-specific guidelines for appropriate target ranges for prosthetic heart valve replacement. Current interpretive data was last revised on 2019. Blood 09/17/2024 10:2 5 AM CDT 09/17/2024 10:35 AM CDT Flakita Valverde MD LAB BLOOD ORDERABLES Final Res ult Performing Organization Address [facility] de Phone Number MARJORIE [address] [address] * Troponin T high-sensitivity series (baseline, 2hr, 4hr, 6hr) (09/17/2024 10:18 AM CDT) Trop T hs 13 <=14 ng/L Comment: Interpretive Data For further hscTnT resources including the diagnostic algorithm and an aid in interpretation, copy and paste this link: https://nrl.testcatalog.org/show/hsTrop Current Interpretive Data last revised 2020. Blood 09/17/2024 10:1 8 AM CDT 09/17/2024 10:30 AM CDT Flakita Valverde MD LAB BLOOD ORDERABLES Final Res ult Performing Organization Address [facility] de Phone Number MARJORIE [address] [address] * ECG 12 lead (09/17/2024 10:03 AM CDT) Ventricular Rate EKG/Min 104 BPM [facility] Atrial Rate 115 BPM [facility] QRS-Interval (MSEC) 82 ms [facility] QT-Interval (MSEC) 296 ms [facility] QTc 389 ms [facility] R [place] 84 degrees [facility] T [place] -72 degrees [facility] Diagnosis Atrial fibrillation with rapid ventricular response Nonspecific ST and T wave abnormality Abnormal ECG When compared with ECG of 17-JUL-2022 16:31 Atrial fibrillation has replaced Electronic ventricular pacemaker Confirmed by OBDULIO CESPEDES M.D. ([id number]) on 09/17/2024 1:01:40 PM [facility] 09/17/2024 10:0 3 AM CDT 09/17/2024 1:01 PM CDT Flakita Valverde MD ECG ORDERABLES Final Result [facility] * eGFR (09/17/2024 9:28 AM CDT) eGFR 84 >=60 mL/min/1. 73 [...] LAB BLOOD ORDERABLES F inal Result MARJORIE [address] [facility] Department [place] [address] * (ABNORMAL) Differential, auto (09/17/2024 9:28 AM CDT) Neutrophil abs 6.00 1.50 - 6.50 K/cumm Imm gran abs 0.06 0.00 - 0.10 K/cumm [facility] Lymphocyte abs 1.58 0.80 - 3.30 K/cumm [facility] Monocyte abs 1.11(H) 0.20 - 0.80 K/cumm [facility] Eosinophil abs 0.21 0.00 - 0.50 K/cumm [facility] Basophil abs 0.09 0.00 - 0.10 K/cumm [facility] Neutrophil pct 66.2 % [facility] Comment: Interpretive Data Percent cell count reference ranges are not reported, since discordance with absolute values may lead to misinterpretation of CBC data. Current Interpretive Data was last revised on 2017. Imm gran pct 0.7 % [facility] Comment: Interpretive Data Percent cell count reference ranges are not reported, since discordance with absolute values may lead to misinterpretation of CBC data. Current Interpretive Data was last revised on 2017. Lymphocyte pct 17.5 % [facility] Comment: Interpretive Data Percent cell count reference ranges are not reported, since discordance with absolute values may lead to misinterpretation of CBC data. Current Interpretive Data was last revised on 2017. Monocyte pct 12.3 % [facility] Comment: Interpretive Data Percent cell count reference ranges are not reported, since discordance with absolute values may lead to misinterpretation of CBC data. Current Interpretive Data was last revised on 2017. Eosinophil pct 2.3 % [facility] Comment: Interpretive Data Percent cell count reference ranges are not reported, since discordance with absolute values may lead to misinterpretation of CBC data. Current Interpretive Data was last revised on 2017. Basophil pct 1.0 % [facility] Comment: Interpretive Data Percent cell count reference ranges are not reported, since discordance with absolute values may lead to misinterpretation of CBC data. Current Interpretive Data was last revised on 2017. Blood 09/17/2024 9:28 AM CDT 09/17/2024 9:41 AM CDT us Adelfo Marsh MD LAB BLOOD ORDERABLES F inal Result MARJORIE [address] Department [place] [address] * Infection Prevention MRSA Only (Staphylococcus aureus) PCR Nasal (09/17/2024 9:28 AM CDT) [facility] PCR Scrn, Methicillin resistant Staphylococcus aureus (MRSA) Not Detected Not Detected Comment: Interpretive Data Testing performed using Nucleic Acid Amplification with the CepTuneIn Xpert MRSA NxG Assay. This assay detects target DNA from mecA, mecC and the SCCmec insertion site of Staphylococcus aureus using Real-Time PCR and has been cleared by the FDA. Performance characteristics have been verified by the [facility]. Current Interpretive Data was last revised on 2023 Nasal 09/17/2024 9:28 AM CDT 09/17/2024 9:41 AM CDT Adelfo Marsh MD LAB MICROBIOLOGY - GEN ERAL ORDERABLES Final Result [facility] [address] [facility] Department [place] [address] * (ABNORMAL) CBC with auto differential (09/17/2024 9:28 AM CDT) [facility] WBC 9.05 3.80 - 9.90 K/cumm Hgb 13.9 11.9 - 15.5 g/dL [facility] Hct 42.8 35.6 - 45.5 % [facility] Plt 184 150 - 400 K/cumm [facility] MPV 9.2 9.1 - 12.3 fL [facility] RBC 4.42 3.90 - 5.20 M/cumm [facility] MCV 96.8(H) 81.3 - 96.4 fL [facility] MCH 31.4 27.1 - 33.3 pg [facility] MCHC 32.5 32.3 - 35.7 g/dL [facility] RDW CV 12.7 11.1 - 14.9 % [facility] RDW SD 46.0 35.7 - 48.1 fL [facility] NRBC abs 0.00 0.00 - 0.01 K/cumm [facility] Blood 09/17/2024 9:28 AM CDT 09/17/2024 9:41 AM CDT Adelfo Marsh MD LAB BLOOD ORDERABLES F inal Result Performing Organization Address [facility] Co de Phone Number [address] [place] [address] * ABO/Rh (09/17/2024 9:28 AM CDT) ABO/Rh B Positive Blood 09/17/2024 9:28 AM CDT 09/17/2024 9:41 AM CDT Narrative [facility] 09/17/2024 10:28 AM CDT Is this test being ordered in advance for a procedure?->Yes Expected date of procedure:->09/28/24 Has the patient been transfused in the past 3 months?->No Has the patient been in the past 3 months?->No dAelfo Marsh MD LAB BLOOD BANK TEST OR DERABLES Final Result Performing Organization Address [facility] de Phone Number [address] [address] * Antibody screen (09/17/2024 9:28 AM CDT) Tadeo, indirect, Gel Interpretation Negative ABSC Blood 09/17/2024 9:28 AM CDT 09/17/2024 9:41 AM CDT Narrative [facility] 09/17/2024 10:28 AM CDT Is this test being ordered in advance for a procedure?->Yes Expected date of procedure:->09/28/24 Has the patient been transfused in the past 3 months?->No Has the patient been in the past 3 months?->No Adelfo Marsh MD LAB BLOOD BANK TEST OR DERABLES Final Result Performing Organization Address [facility] de Phone Number [address] [place] [address] * Comprehensive metabolic panel (09/17/2024 9:28 AM CDT) [facility] Sodium 138 135 - 145 mmol/L Potassium, pl 3.8 3.3 - 4.9 mmol/L [facility] Chloride 102 97 - 110 mmol/L [facility] CO2 25 22 - 32 mmol/L [facility] Anion gap 11 2 - 15 mmol/L [facility] BUN 19 6 - 25 mg/dL [facility] Creatinine 0.74 0.60 - 1.10 mg/dL [facility] Glucose 95 70 - 199 mg/dL [facility] Comment: Interpretive Data Fasting glucose >/= 126 [...] 2022. Calcium 9.3 8.5 - 10.3 mg/dL [facility] Bilirubin, total 0.3 0.1 - 1.2 mg/dL [facility] Protein, pl 6.5 6.5 - 8.5 g/dL [facility] Albumin 3.6 3.5 - 5.0 g/dL [facility] Alk phos 121 40 - 130 Units/L [facility] ALT 18 7 - 45 Units/L [facility] AST 27 10 - 45 Units/L [facility] Blood 09/17/2024 9:28 AM CDT 09/17/2024 9:41 AM CDT us Adelfo Marsh MD LAB BLOOD ORDERABLES F inal Result [facility] [address] [facility] Department [place] [address] * (ABNORMAL) Hepatitis panel, acute (07/18/2022 6:04 AM FOREST PATHOLOGIST) Hep A IgM Nonreactive Nonreactive [facility] Comment: Interpretive Data: If Hep A IgM Ab is reported as Equivocal, a new sample should be drawn in two weeks for testing. Current interpretive data was last revised on 19. Hep B core IgM Nonreactive Nonreactive [facility] Comment: Interpretive Data If HepB Core IgM Ab is reported as Equivocal, a new sample should be drawn in two weeks for testing. Current interpretive data was last revised on 19. Hep C Ab Reactive(A) Nonreactive [facility] Comment: Interpretive Data Nonreactive: Antibodies to HCV [...] last revised on 2019. HepBsAg Nonreactive Nonreactive [facility] Blood 07/18/2022 6:04 AM FOREST PATHOLOGIST 07/18/2022 6:34 AM FOREST PATHOLOGIST us Angi Castillo DO LAB MICROBIOLOGY - GENERAL OR DERABLES Final Result Performing Organization Address City/State/[facility] Co de Phone Number MARJORIE [address] [facility] Department [place] [address] * Screening Mammogram Bilateral W [place] (04/29/2018 10:09 AM FOREST PATHOLOGIST) Anatomical Region Laterality Modality Breast Bilateral Mammography 04/29/2018 10:0 9 AM FOREST PATHOLOGIST Impressions 05/06/2018 4:06 PM FOREST PATHOLOGIST BI-RAD 2 BENIGN There is no mammographic evidence of malignancy. A 1 year screening mammogram is recommended. The patient has been or will be contacted. The patient will be entered into a reminder system with a target due date of 1 year for her next screening exam. Electronically signed by: Dr. Gregory Horner M.D. mo/penrad:05/06/2018 16:05:36 Wagon Driver Salesperson: Shoshana GRANADOS(R)(M), [facility] letter sent: Normal Exam Reading location: [facility] BI-RADS: 2 Benign [EOD] Narrative 05/06/2018 4:06 PM FOREST PATHOLOGIST - MG BILATERAL DIGITAL SCREENING MAMMOGRAM 3D/2D [...] Electronically signed by: Dr. Gregory gama/samantha:05/06/2018 16:05:36 Wagon Driver Salesperson: Shoshana GRANADOS(R)(M), [facility] letter sent: Normal Exam Reading location: [facility] BI-RADS: 2 Benign [EOD] Parker Jean MD IMG MAMMO PROCEDURES Final Res ult from Last 3 Months or Most Recently Relevant to Health Maintenance Additional Health Concerns Infection Onset Date Last Indicated COVID19 10/21/2024 10/21/2024 Insurance MEDICARE [facility] MEDICARE [facility] [address] Advance Directives For more information, please contact: [phone] Documents on File Type Date Recorded Patient Dot Compliance Specialist Expl anation ADVANCE DIRECTIVE 10/13/2024 10:26 AM POLST - Phys Order for PT Preferences Power of Car Wash Manager 10/07/2024 5:19 AM * LIMITED - No [...] 1:23 PM 07/19/2022 8:09 PM Care Teams Baseball Inspector Relationship Specialty Start Date End Date Harry Jorgensen MD PCP - General 09/06/16 Michael Quiros MD [address] [place] [address] Referring Physician Interventional Cardiology 09/17/24 Mohan Rico MD [address] [place] [address] [place] [address] Consulting Physician Pulmonary Disease 09/17/24 Betty Calvin PA [address] [place] [address] [place] [address] Physician Conference Center Coordinator Orthopedic Surgery 10/08/24 Sybil Alex [facility] Pharmacist Pharmacy 10/29/24
--- OUTSIDE RECORDS SUMMARY | 2024-11-03 14:48 | XMS_ITS ---
Author Organization [facility] Care Team Providers Care Brazer Induction Name Role Phone Elodia Reece Unavailable Unavailable Joseph, Carolyn Moreno Unavailable Unavaila ble Ampadu, Khadar Gilliland Unavailable Unavailable Ampadu, Melissa Unavailable Unavailable Liana Herrera Unavailable Unavailable Fahim, Magid Unavailable Unavailable Ky, Yasemin Unavailable Unavailable Allergies and adverse reactions Code CodeSystem Substance Reaction Severity StartDate Concern Status 39785 RXNORM Vancomycin Severe 05/23/2022 active 8640 RXNORM predniSONE Anaphylaxis (co de- 82435021, SNOMED CT) Severe 05/23/2022 active 7052 RXNORM Morphine Severe 05/23/2022 active 66978 RXNORM Azithromycin Unknown 05/23/2022 active 10256 RXNORM Atorvastatin Unknown 05/23/2022 active Care Team Name Role Address Phone Organization Dates Liana Herrera [facility] [address] [facility] [place], [address], [place] (Office): : [facility] 05/23/2022 - 06/07/2022 Elodia Chevy [address] [place], [address], [place] (Office): [facility] 05/23/2022 - 06/07/2022 Carolyn Ruiz [address] [place], [address], [facility] (Office): : [facility] 05/23/2022 - 06/07/2022 Khadar Gilliland [address], [address], [place] (Office): [facility] 05/23/2022 - 06/07/[address], [address], [facility] (Office): : [facility] 05/23/2022 - 06/07/2022 Magid Fahim [address] [facility], [place], [place], [facility], [place] (Office): [facility] 05/23/2022 - 06/07/2022 Yasemin Ky [address] [place] [address], [address], [facility] (Office): [facility] 05/23/2022 - 06/07/2022 Immunizations Immunization Status Vaccine Details Vaccine Code CodeSystem Date Notes Flucelvax (Influenza vaccine) completed Influenza, split virus, quadrivalent, injectable, preservative free 150 CVX created date: 06/05/2022 administere d date: 02/06/2022 Pneumovax (PCV 20) cancelled Pneumococcal conjugate vaccine 20-valent (PCV20), polysaccharide TCP507 conjugate, adjuvant, preservative free 216 CVX created date: 06/05/2022 consent date: 06/05/2022 Mental Status Section Date Assessment Total Score Description 06/07/2022 BIMS 15 cognitively int act CAM 0 No delirium ind icated PHQ-9 03 minimal depress ion 05/29/2022 BIMS 15 cognitively int act CAM 0 No delirium ind icated PHQ-9 09 mild depression Problems Problem # Description Date of onset Resolved Date Code CodeSystem Concern Status 1 PRESSURE ULCER OF LEFT BUTTOCK, STAGE [address] active 2 COGNITIVE COMMUNICATION DEFICIT [address] active 3 CONGENITAL HYPOTHYROIDISM WITHOUT GOITER [address] active 4 ENCOUNTER FOR OTHER ORTHOPEDIC AFTERCARE [address] active 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 6 INCOMPLETE ATYPICAL FEMORAL FRACTURE, LEFT LEG, SUBSEQUENT ENCOUNTER FOR FRACTURE WITH ROUTINE HEALING [address] active 7 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 [address] active 8 MUSCLE WEAKNESS (GENERALIZED) [address] active 9 OTHER HYPERLIPIDEMIA [address] active 10 OTHER LACK OF COORDINATION [address] active 11 PAROXYSMAL ATRIAL FIBRILLATION [address] active 12 PERSONAL HISTORY OF COVID-[address] active 13 PRESENCE OF CARDIAC PACEMAKER [address] active 14 PRIMARY GENERALIZED (OSTEO)ARTHRITIS [address] active Reason for Referral No Reasons for Referral Entered Social History Social History Observation Description Start Date End Date Code Code System Current Smoking Status Tobacco smoking consumption unknown 192264898 SNOMED CT Sex Assigned At Female 1950 [address]-6 [facility] Gender Identity Female [id number] [address] Vital Signs Code Code System Vitals Name Values and Units Timing Information 01232-6 INC Pain Level Value=0.0 06/07/2022 8310-5 LOINC Body Temperature Value=97.9 Units= F 06/07/2022 12835-2 LOINC O2 % BldC Oximetry Value=98.0 Units= % 06/07/2022 64749-8 LOINC Weight Dbgdl=198.0 Units=Lbs 8302-2 LOINC Height Value=65.0 Units=Inches 05/23/2022 9279-1 LOINC Respiratory Rate Value=22.0 Units=/m in 05/23/2022 8867-4 LOINC Heart rate Value=88.0 Units=/min 8462-4 LOINC Blood Pressure-Diastolic Value=78 Un its=mmHg 05/23/2022 8480-6 LOINC Blood Pressure-Systolic Lsykv=158 Un its=mmHg 05/23/2022
--- OUTSIDE RECORDS SUMMARY | 2024-11-03 14:48 | XMS_ITS | Encounter Summary ---
Author Organization [facility] Address [address] [place] [address] Care Team Providers Care Change Coordinator Name Role Phone Harry Jorgensen MD Primary Care Provider + Taqueira Sullivan MD Primary Care Provider [phone] Harry Jorgensen MD Primary Care Provider + Harry Jorgensen MD Primary Care Provider + Harry Jorgensen MD Primary Care Provider + Truman Moody MD Unavailable [phone] Michael Quiros MD Unavailable [phone] Mohan Rico MD Unavailable [phone] Betty Calvin Unavailable [phone] Sybil Alex [facility] Unavailable Unavailable Encounter Details Date Type Department Care Team (Late st Contact Info) Description 01/02/2007 Orders Only [facility] Information Management [address] [place] [address] Scanning, Provider Social History Tobacco Use Types Packs/Day Years Used Date Smoking Tobacco: Never Assessed Comments Unknown Sex and Gender Information Value Date Recorded Sex Assigned at Not on file Legal Sex 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 Gender Identity Female 01/15/2021 9:27 PM CDT Sexual Orientation Straight 01/15/2021 9: 27 PM CDT documented as of this encounter Plan of Treatment Not on file documented as of this encounter Procedures Procedure Name Priority Date/Time Associated Diagnosis Comments CARDIOLOGY DOCUMENT SCAN 01/02/2007 documented in this encounter Results * SCAN - CARDIOLOGY (01/02/2007) Anatomical Region Laterality Modality Other Provider Scanning CV CARDIAC SERVICES PROCEDURES Final Result documented in this encounter Visit Diagnoses Not on filedocumented in this encounter Additional Health Concerns Infection Onset Date Last Indicated Resolved Time COVID19 10/21/2024 10/21/2024 documented as of this encounter Care Teams Change Coordinator Relationship Specialty Start Date End Date Harry Jorgensen MD PCP - General 09/06/16 Taqueria Sullivan MD [address] [address] PCP - General 08/27/16 09/05/16 Harry Jorgensen MD PCP - General 04/21/14 08/26/16 Harry Jorgensen MD PCP - General 03/04/11 04/20/14 Harry Jorgensen MD PCP - General 03/01/10 03/03/11 Truman Moody MD [address] [place] [address] [place] [address] Boiler Or Engine Operator Cardiology 02/01/19 09/16/24 Michael Quiros MD [address] [place] [address] [address] [place] [address] Referring Physician Interventional Cardiology 09/17/24 Mohan Rico MD [address] [place] [address] [place] [address] Consulting Physician Pulmonary Disease 09/17/24 Betty Calvin PA [address] [place] [address] [place] [address] Physician Umbrella Supervisor Orthopedic Surgery 10/08/24 Sybil Alex, [facility] Pharmacist Pharmacy 10/29/24 documented as of this encounter
[2024-11-03 14:58] LABS: Basophils Absolute Auto 0.07 K/mm3 (0.00-0.10); Basophils Percent Auto 0.7 % (0.0-1.0); Eosinophils Absolute Auto 0.18 K/mm3 (0.02-0.50); Eosinophils Percent Auto 1.7 % (1.0-6.0); Hemoglobin 9.7 g/dL (11.7-13.8); Immature Granulocyte Absolute 0.08 K/mm3 (0.00-0.00); Immature Granulocyte Percent A 0.7 % (0.0-0.0); Lymphocytes Absolute Auto 1.33 K/mm3 (1.10-4.50); Lymphocytes Percent Auto 12.4 % (18.0-42.0); Mean Corpuscular HGB Conc 31.3 g/dL (32-36); Mean Corpuscular Hemoglobin 30.7 pg (27.0-31.0); Mean Corpuscular Volume 98.1 fL (78.0-102.0); Mean Platelet Volume 9.5 fl (9.2-11.8); Monocytes Percent Auto 9.3 % (2.0-11.0); Neutrophils Absolute Auto 8.04 K/mm3 (1.70-7.20); Neutrophils Percent Auto 75.2 % (50.0-70.0); Platelet Count Result 205 K/mm3 (150-420); Red Blood Count 3.16 M/mm3 (4.20-5.40); Red Cell Distribution Width 13.1 % (11.6-14.4); White Blood Count 10.7 K/mm3 (4.8-10.8)
[2024-11-03 15:13] LABS: Alanine Aminotransferase 15 U/L (6-35); Alkaline Phosphatase 103 U/L (38-126); Anion Gap 2 mmol/L (4-12); Aspartate Amino Transferase 32 U/L (14-36); Bilirubin,Total 0.4 mg/dL (0.2-1.3); Blood Urea Nitrogen 21 mg/dL (7-17); Calcium 8.5 mg/dL (8.4-10.2); Carbon Dioxide 28 mmol/L (22-30); Chloride 106 mmol/L (98-107); Creatine Kinase 56 U/L (30-135); Estimated Glomerular Filt Rate > 60; Glucose 98 mg/dL (65-110); Osmolality Calculated 285 mOsm/kg (285-295); Potassium 4.4 mmol/L (3.4-5.0); Sodium 136 mmol/L (137-145); Total Protein 5.4 g/dL (6.3-8.2)
== END 2024-11-03 14:39 | disposition home or self-care (01) ==
LOC: CHSLAB 14:42
PROVIDERS: Visit Provider Internal Medicine Infectious Disease
DX: S81.001D Unspecified open wound, right knee, subsequent encounter (principal); M01.X61 Direct infection of right knee in infectious and parasitic diseases classified elsewhere
CPT/HCPCS: 36415; 80053; 82550; 85025

== ENCOUNTER 2025-01-21 15:38 | Outpatient (NON) | payer MEDICARE, OTHER, SELFPAY ==
--- OUTSIDE RECORDS SUMMARY | 2025-01-21 15:42 | XMS_ITS | Encounter Summary ---
Author Organization [facility] Facility Care Team Providers Care Animal Husbandry Worker Name Role Phone Harry Jorgensen MD Primary Care Provider + Truman Moody MD Unavailable [phone] Michael Quiros MD Unavailable [phone] Mohan Rico MD Unavailable [phone] Betty Calvin Unavailable [phone] Sybil Alex [facility] Unavailable Unavailable Vitaliy Alcazar MD Unavailable +[phone] Rivka Coello [facility] Unavailable Unavailable Carol Sainz RN Unavailable Unavailable Sybil Alex [facility] Unavailable Unavailable Encounter Details Date Type Department Care Team (Latest Contact Info) Description 06/18/2017 Orders Only MMG CLINCONV ProviderKrzysztof MD [address] [place] [address] Social History Tobacco Use Types Packs/Day Years Used Date Smoking Tobacco: Never Alcohol Use Standard Drinks/Week Comments No 0 (1 standard drink = 0.6 oz pur e alcohol) Comments Unknown Sex and Gender Information Value Date Recorded Sex Assigned at Not on file Legal Sex Female 10:24 AM PLAYGROUND DIRECTOR Gender Identity Female 01/15/2021 9:27 PM CDT Sexual Orientation Straight 01/15/2021 9: 27 PM CDT documented as of this encounter Plan of Treatment Upcoming Encounters Date Type Department Care Team (Latest Contact Info) Description 01/27/2025 7:30 AM CDT Hospital Encounter [facility] Operating Room [address] [place] [address] [place] [address] [facility] [address], [place] [id number] 01/27/2025 7:30 AM CDT - 01/27/2025 9:00 AM CDT Surgery [facility] Operating Room [id number] [place] [address] [place] [address] [facility] [address], [place] [id number] DEBRIDEMENT LEFT KNEE WOUND WITH WOUND VAC PLACEMENT Scheduled Procedures Name Priority Associated Diagnoses Date/Ti me DEBRIDEMENT WOUND Open wound of left knee, initial encounter Other complications of procedures, not elsewhere classified, initial encounter 01/27/2025 7:30 AM CDT documented as of this encounter Procedures Procedure Name Priority Date/Time Associated Diagnosis Comments PROCEDURE - RESULT 06/18/2017 12 :00 AM PLAYGROUND DIRECTOR PROCEDURE - RESULT 06/18/2017 12 :00 AM PLAYGROUND DIRECTOR documented in this encounter Results * PROCEDURE - RESULT (06/18/2017 12:00 AM PLAYGROUND DIRECTOR) Narrative 06/18/2017 12:00 AM PLAYGROUND DIRECTOR Ordered by an unspecified provider. Historical Provider Final Res ult * PROCEDURE - RESULT (06/18/2017 12:00 AM PLAYGROUND DIRECTOR) Narrative 06/18/2017 12:00 AM PLAYGROUND DIRECTOR Ordered by an unspecified provider. Historical Provider Final Res ult documented in this encounter Visit Diagnoses Not on filedocumented in this encounter Additional Health Concerns Infection Onset Date Last Indicated Resolved Time COVID19 Comment:11/05/24 Patient in post covid recovered status. ML 10/21/2024 10/21/2024 11/05/2024 12 :08 PM CDT LTAC Screening Comment:11/05/24 patient was confirmed to arrive from home residence. Not a LTAC/high risk facility. ML 11/04/2024 11/04/2024 11/05/2024 2:57 PM C DT documented as of this encounter Care Teams Animal Husbandry Worker Relationship Specialty Start Date End Date Harry Jorgensen MD PCP - General 09/06/16 Vitaliy Alcazar MD [address] [facility] [address] [place] [address] [place] [address] PCP - Home Infusion Attending Infectious Diseases 11/10/24 Truman Moody MD Cardiovascular Specialist Cardiology 02/01/19 09/16/24 Michael Quiros MD [address] [place] [address] Referring Physician Interventional Cardiology 09/17/24 Mohan Rico MD [address] [facility] [address] [place] [address] [place] [address] Consulting Physician Pulmonary Disease 09/17/24 Betty Calvin PA [address] [facility] [address] [place] [address] [place] [address] Physician Merchandiser Retail Representative Orthopedic Surgery 10/08/24 Sybil Alex, [facility] Pharmacist Pharmacy 10/29/24 11/15/24 Rivka Coello, [facility] Pharmacist Pharmacy 11/15/24 11/23/24 Carol Sainz, RN Registered Nurse 12/02/24 Sybil Alex, [facility] Pharmacist Pharmacy 12/08/24 12/24/24 documented as of this encounter
--- OUTSIDE RECORDS SUMMARY | 2025-01-21 15:42 | XMS_ITS | Encounter Summary ---
Author Organization [facility] Facility Care Team Providers Care Driver/Refuse Collector Name Role Phone Harry Jorgensen MD Primary Care Provider + Truman Moody MD Unavailable [phone] Michael Quiros MD Unavailable [phone] Mohan Rico MD Unavailable [phone] Betty Calvin Unavailable [phone] Sybil Alex [facility] Unavailable Unavailable Vitaliy Alcazar MD Unavailable [phone] Rivka Coello [facility] Unavailable Unavailable Carol Sainz RN Unavailable Unavailable Sybil Alex [facility] Unavailable Unavailable Encounter Details Date Type Department Care Team (Latest Contact Info) Description 05/28/2017 Orders Only MMG CLINCONV ProviderKrzysztof MD [address] [place] [address] Social History Tobacco Use Types Packs/Day Years Used Date Smoking Tobacco: Never Alcohol Use Standard Drinks/Week Comments No 0 (1 standard drink = 0.6 oz pur e alcohol) Comments Unknown Sex and Gender Information Value Date Recorded Sex Assigned at Not on file Legal Sex Female 10:24 AM SOLID PROPELLANT 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 Gender Identity Female 01/15/2021 9:27 PM CDT Sexual Orientation Straight 01/15/2021 9: 27 PM CDT documented as of this encounter Plan of Treatment Upcoming Encounters Date Type Department Care Team (Latest Contact Info) Description 01/27/2025 7:30 AM CDT Hospital Encounter [facility] Operating Room [address] [place] [address] [place] [address] [facility] [address], [place] [id number] 01/27/2025 7:30 AM CDT - 01/27/2025 9:00 AM CDT Surgery [facility] Operating Room [id number] [place] [address] [place] [address] [facility] [address], [place] [id number] DEBRIDEMENT LEFT KNEE WOUND WITH WOUND VAC PLACEMENT Scheduled Procedures Name Priority Associated Diagnoses Date/Ti me DEBRIDEMENT WOUND Open wound of left knee, initial encounter Other complications of procedures, not elsewhere classified, initial encounter 01/27/2025 7:30 AM CDT documented as of this encounter Procedures Procedure Name Priority Date/Time Associated Diagnosis Comments SCAN - LABS 05/28/2017 12:00 AM SOLID PROPELLANT PROCESSOR documented in this encounter Results * SCAN - LABS (05/28/2017 12:00 AM SOLID PROPELLANT PROCESSOR) Narrative 05/28/2017 12:00 AM SOLID PROPELLANT PROCESSOR Ordered by an unspecified provider. us Historical [...] documented as of this encounter Care Teams Driver/Refuse Collector Relationship Specialty Start Date End Date Harry Jorgensen MD PCP - General 09/06/16 Vitaliy Alcazar MD [address] [facility] [address] [place] [address] [place] [address] PCP - Home Infusion Attending Infectious Diseases 11/10/24 Truman Moody MD Landscape Gardener Cardiology 02/01/19 09/16/24 Michael Quiros MD [address] [place] [address] Referring Physician Interventional Cardiology 09/17/24 Mohan Rico MD [address] [facility] [address] [place] [address] [place] [address] Consulting Physician Pulmonary Disease 09/17/24 Betty Calvin, PA [address] [facility] [address] [place] [address] [place] [address] Physician Child Care Giver Orthopedic Surgery 10/08/24 Sybil Alex, [facility] Pharmacist Pharmacy 10/29/24 11/15/24 Rivka Coello, [facility] Pharmacist Pharmacy 11/15/24 11/23/24 Carol Sainz, RN Registered Nurse 12/02/24 Sybil Alex, [facility] Pharmacist Pharmacy 12/08/24 12/24/24 documented as of this encounter
--- OUTSIDE RECORDS SUMMARY | 2025-01-21 15:43 | XMS_ITS | Encounter Summary ---
Author Organization [facility] Facility Care Team Providers Care Key Cutter Name Role Phone Harry Jorgensen MD Primary Care Provider + Truman Moody MD Unavailable [phone] Michael Quiros MD Unavailable [phone] Mohan Rico MD Unavailable [phone] Betty Calvin Unavailable [phone] Sybil Alex [facility] Unavailable Unavailable Vitaliy Alcazar MD Unavailable [phone] Rivka Coello [facility] Unavailable Unavailable Carol Sainz RN Unavailable Unavailable Sybil Alex [facility] Unavailable Unavailable Encounter Details Date Type Department Care Team (Latest Contact Info) Description 10/29/2017 Orders Only MMG CLINCONV ProviderKrzysztof MD [address] [place] [address] Social History Tobacco Use Types Packs/Day Years Used Date Smoking Tobacco: Never Alcohol Use Standard Drinks/Week Comments No 0 (1 standard drink = 0.6 oz pur e alcohol) Comments Unknown Sex and Gender Information Value Date Recorded Sex Assigned at Not on file Legal Sex Female 10:24 AM TELEPHONE SURVEYOR Gender Identity Female 01/15/2021 9:27 PM CDT Sexual Orientation Straight 01/15/2021 9: 27 PM CDT documented as of this encounter Plan of Treatment Upcoming Encounters Date Type Department Care Team (Latest Contact Info) Description 01/27/2025 7:30 AM CDT Hospital Encounter [facility] Operating Room [address] [place] [address] [place] [address] [facility] [address], [place] [id number] 01/27/2025 7:30 AM CDT - 01/27/2025 9:00 AM CDT Surgery [facility] Operating Room [id number] [place] [address] [place] [address] [facility] [address], [place] [id number] DEBRIDEMENT LEFT KNEE WOUND WITH WOUND VAC [...] documented as of this encounter Care Teams Key Cutter Relationship Specialty Start Date End Date Harry Jorgensen MD PCP - General 09/06/16 Vitaliy Alcazar MD [address] [facility] [address] [place] [address] [place] [address] PCP - Home Infusion Attending Infectious Diseases 11/10/24 Truman Moody MD Certified Peer Specialist Cardiology 02/01/19 09/16/24 Michael Quiros MD [address] [place] [address] Referring Physician Interventional Cardiology 09/17/24 Mohan Rico MD [address] [facility] [address] [place] [address] [place] [address] Consulting Physician Pulmonary Disease 09/17/24 Betty Calvin PA [address] [facility] [address] [place] [address] [place] [address] Physician Strategic Planner Orthopedic Surgery 10/08/24 Sybil Alex, [facility] Pharmacist Pharmacy 10/29/24 11/15/24 Rivka Coello, [facility] Pharmacist Pharmacy 11/15/24 11/23/24 Carol Sainz, [place] Registered Nurse 12/02/24 Sybil Alex, [facility] Pharmacist Pharmacy 12/08/24 12/24/24 documented as of this encounter
--- OUTSIDE RECORDS SUMMARY | 2025-01-21 15:43 | XMS_ITS | Encounter Summary ---
Author Organization [facility] Facility Care Team Providers Care Repair Armature Winder Name Role Phone Harry Jorgensen MD Primary Care Provider + Truman Moody MD Unavailable [phone] Michael Quiros MD Unavailable [phone] Mohan Rico MD Unavailable [phone] Betty Calvin Unavailable [phone] Sybil Alex [facility] Unavailable Unavailable Vitaliy Alcazar MD Unavailable [phone] Rivka Coello [facility] Unavailable Unavailable Carol Sainz RN Unavailable Unavailable Sybil Alex [facility] Unavailable Unavailable Encounter Details Date Type Department Care Team (Latest Contact Info) Description 10/07/2017 Orders Only MMG CLINCONV ProviderKrzysztof MD [address] [place] [address] Social History Tobacco Use Types Packs/Day Years Used Date Smoking Tobacco: Never Alcohol Use Standard Drinks/Week Comments No 0 (1 standard drink = 0.6 oz pur e alcohol) Comments Unknown Sex and Gender Information Value Date Recorded Sex Assigned at Not on file Legal Sex Female 10:24 AM HEALTH PROMOTION EDUCATOR Gender Identity Female 01/15/2021 9:27 PM CDT Sexual Orientation Straight 01/15/2021 9: 27 PM CDT documented as of this encounter Plan of Treatment Upcoming Encounters Date Type Department Care Team (Latest Contact Info) Description 01/27/2025 7:30 AM CDT Hospital Encounter [facility] Operating Room [address] [place] [address] [place] [address] [facility] [address], [place] [id number] 01/27/2025 7:30 AM CDT - 01/27/2025 9:00 AM CDT Surgery [facility] Operating Room [address] [place] [address] [place] [address] [facility] [address], [place] [id number] DEBRIDEMENT LEFT KNEE WOUND WITH WOUND VAC [...] documented as of this encounter Care Teams Repair Armature Winder Relationship Specialty Start Date End Date Harry Jorgensen MD PCP - General 09/06/16 Vitaliy Alcazar MD [address] [facility] [address] [place] [address] [place] [address] PCP - Home Infusion Attending Infectious Diseases 11/10/24 Truman Moody MD Fitness Consultant Cardiology 02/01/19 09/16/24 Michael Quiros MD [address] [place] [address] Referring Physician Interventional Cardiology 09/17/24 Mohan Rico MD [address] [facility] [address] [place] [address] [place] [address] Consulting Physician Pulmonary Disease 09/17/24 Betty Calvin PA [address] [facility] [address] [place] [address] [place] [address] Physician Overlocker Orthopedic Surgery 10/08/24 Sybil Alex, [facility] Pharmacist Pharmacy 10/29/24 11/15/24 Rivka Coello, [facility] Pharmacist Pharmacy 11/15/24 11/23/24 Carol Sainz, RN Registered Nurse 12/02/24 Sybil Alex, [facility] Pharmacist Pharmacy 12/08/24 12/24/24 documented as of this encounter
--- OUTSIDE RECORDS SUMMARY | 2025-01-21 15:43 | XMS_ITS | Encounter Summary ---
Author Organization [facility] Facility Care Team Providers Care Pan Tank Worker Name Role Phone Harry Jorgensen MD Primary Care Provider + Truman Moody MD Unavailable [phone] Michael Quiros MD Unavailable [phone] Mohan Rico MD Unavailable [phone] Betty Calvin Unavailable [phone] Sybil Alex [facility] Unavailable Unavailable Vitaliy Alcazar MD Unavailable [phone] Rivka Coello [facility] Unavailable Unavailable Carol Sainz RN Unavailable Unavailable Sybil Alex [facility] Unavailable Unavailable Encounter Details Date Type Department Care Team (Latest Contact Info) Description 09/15/2017 Orders Only MMG CLINCONV ProviderKrzysztof MD [address] [place] [address] Social History Tobacco Use Types Packs/Day Years Used Date Smoking Tobacco: Never Alcohol Use Standard Drinks/Week Comments No 0 (1 standard drink = 0.6 oz pur e alcohol) Comments Unknown Sex and Gender Information Value Date Recorded Sex Assigned at Not on file Legal Sex Female 10:24 AM THEATER PROJECTIONIST Gender Identity Female 01/15/2021 9:27 PM CDT Sexual Orientation Straight 01/15/2021 9: 27 PM CDT documented as of this encounter Plan of Treatment Upcoming Encounters Date Type Department Care Team (Latest Contact Info) Description 01/27/2025 7:30 AM CDT Hospital Encounter [facility] Operating Room [address] [place] [address] [place] [address] [facility] [address], [place] [id number] 01/27/2025 7:30 AM CDT - 01/27/2025 9:00 AM CDT Surgery [facility] Operating Room [address] [place] [address] [place] [address] [facility] [address], [place] [id number] DEBRIDEMENT LEFT KNEE WOUND WITH WOUND VAC [...] documented as of this encounter Care Teams Pan Tank Worker Relationship Specialty Start Date End Date Harry Jorgensen MD PCP - General 09/06/16 Vitaliy Alcazar MD [address] [facility] [address] [place] [address] [place] [address] PCP - Home Infusion Attending Infectious Diseases 11/10/24 Truman Moody MD Wood Last Maker Cardiology 02/01/19 09/16/24 Michael Quiros MD [address] [place] [address] Referring Physician Interventional Cardiology 09/17/24 Mohan Rico MD [address] [facility] [address] [place] [address] [place] [address] Consulting Physician Pulmonary Disease 09/17/24 Betty Calvin PA [address] [facility] [address] [place] [address] [place] [address] Physician Warehouse Guard Orthopedic Surgery 10/08/24 Sybil Alex, [facility] Pharmacist Pharmacy 10/29/24 11/15/24 Rivka Coello [facility] Pharmacist Pharmacy 11/15/24 11/23/24 Carol Sainz, RN Registered Nurse 12/02/24 Sybil Alex, [facility] Pharmacist Pharmacy 12/08/24 12/24/24 documented as of this encounter
--- OUTSIDE RECORDS SUMMARY | 2025-01-21 15:43 | XMS_ITS | Encounter Summary ---
Author Organization [facility] Facility Care Team Providers Care It Service Manager Name Role Phone Harry Jorgensen MD Primary Care Provider + Truman Moody MD Unavailable [phone] Michael Quiros MD Unavailable [phone] Mohan Rico MD Unavailable [phone] Betty Calvin Unavailable [phone] Sybil Alex [facility] Unavailable Unavailable Vitaliy Alcazar MD Unavailable [phone] Rivka Coello [facility] Unavailable Unavailable Carol Sainz RN Unavailable Unavailable Sybil Alex [facility] Unavailable Unavailable Encounter Details Date Type Department Care Team (Latest Contact Info) Description 08/28/2017 Orders Only MMG CLINCONV ProviderKrzysztof MD [address] [place] [address] Social History Tobacco Use Types Packs/Day Years Used Date Smoking Tobacco: Never Alcohol Use Standard Drinks/Week Comments No 0 (1 standard drink = 0.6 oz pur e alcohol) Comments Unknown Sex and Gender Information Value Date Recorded Sex Assigned at Not on file Legal Sex Female 10:24 AM ROLL GRINDER Gender Identity Female 01/15/2021 9:27 PM CDT Sexual Orientation Straight 01/15/2021 9: 27 PM CDT documented as of this encounter Plan of Treatment Upcoming Encounters Date Type Department Care Team (Latest Contact Info) Description 01/27/2025 7:30 AM CDT Hospital Encounter [facility] Operating Room [address] [place] [address] [place] [address] [facility] [address], [place] [id number] 01/27/2025 7:30 AM CDT - 01/27/2025 9:00 AM CDT Surgery [facility] Operating Room [id number] [place] [address] [place] [address] [facility] [address], [place] [id number] DEBRIDEMENT LEFT KNEE WOUND WITH WOUND VAC [...] documented as of this encounter Care Teams It Service Manager Relationship Specialty Start Date End Date Harry Jorgensen MD PCP - General 09/06/16 Vitaliy Alcazar MD [address] [facility] [address] [place] [address] [place] [address] PCP - Home Infusion Attending Infectious Diseases 11/10/24 Truman Moody MD Horseradish Maker Cardiology 02/01/19 09/16/24 Michael Quiros MD [address] [place] [address] Referring Physician Interventional Cardiology 09/17/24 Mohan Rico MD [address] [facility] [address] [place] [address] [place] [address] Consulting Physician Pulmonary Disease 09/17/24 Betty Calvin PA [address] [facility] [address] [place] [address] [place] [address] Physician Adult Literacy Instructor Orthopedic Surgery 10/08/24 Sybil Alex, [facility] Pharmacist Pharmacy 10/29/24 11/15/24 Rivka Coello [facility] Pharmacist Pharmacy 11/15/24 11/23/24 Carol Sainz, RN Registered Nurse 12/02/24 Sybil Alex, [facility] Pharmacist Pharmacy 12/08/24 12/24/24 documented as of this encounter
--- OUTSIDE RECORDS SUMMARY | 2025-01-21 15:43 | XMS_ITS | Encounter Summary ---
Author Organization [facility] Facility Care Team Providers Care Mechanical Planner Name Role Phone Harry Jorgensen MD Primary Care Provider + Taqueria Sullivan MD Primary Care Provider [phone] Harry Jorgensen MD Primary Care Provider + Truman Moody MD Unavailable [phone] Michael Quiros MD Unavailable [phone] Mohan Rico MD Unavailable [phone] Betty Calvin Unavailable [phone] Sybil Alex [facility] Unavailable Unavailable Vitaliy Alcazar MD Unavailable [phone] Rivka Coello [facility] Unavailable Unavailable Carol Sainz RN Unavailable Unavailable Sybil Alex [facility] Unavailable Unavailable Encounter Details Date Type Department Care Team (Latest Contact Info) Description 07/25/2016 Orders Only [facility] CLINCONV ProviderKrzysztof MD [address] [place] [address] Social History Tobacco Use Types Packs/Day Years Used Date Smoking Tobacco: Never Alcohol Use Standard Drinks/Week Comments No 0 (1 standard drink = 0.6 oz pur e alcohol) Comments Unknown Sex and Gender Information Value Date Recorded Sex Assigned at Not on file Legal Sex Female 10:24 AM ACCREDITATION COORDINATOR Gender Identity Female 01/15/2021 9:27 PM CDT Sexual Orientation Straight 01/15/2021 9: 27 PM CDT documented as of this encounter Plan of Treatment Upcoming Encounters Date Type Department Care Team (Latest Contact Info) Description 01/27/2025 7:30 AM CDT Hospital Encounter [facility] Operating Room [id number] [place] [address] [place] [address] [facility] [address] [address] 01/27/2025 7:30 AM CDT - 01/27/2025 9:00 AM CDT Surgery [facility] Operating Room [id number] [place] [address] [place] [address] [facility] [address], [place] [id number] DEBRIDEMENT LEFT KNEE WOUND WITH WOUND VAC PLACEMENT Scheduled Procedures Name Priority Associated Diagnoses Date/Ti me DEBRIDEMENT WOUND Open wound of left knee, initial encounter Other complications of procedures, not elsewhere classified, initial encounter 01/27/2025 7:30 AM CDT documented as of this encounter Procedures Procedure Name Priority Date/Time Associated Diagnosis Comments SCAN - LABS 07/25/2016 12:00 AM ACCREDITATION COORDINATOR documented in this encounter Results * SCAN - LABS (07/25/2016 12:00 AM ACCREDITATION COORDINATOR) Narrative 07/25/2016 12:00 AM ACCREDITATION COORDINATOR Ordered by an unspecified provider. us Historical [...] documented as of this encounter Care Teams Mechanical Planner Relationship Specialty Start Date End Date Harry Jorgensen MD PCP - General 09/06/16 Taqueria Sullivan MD [address] [address] PCP - General 08/27/16 09/05/16 Harry Jorgensen MD PCP - General 04/21/14 08/26/16 Vitaliy Alcazar MD [address] [facility] [address] [place] [address] PCP - Home Infusion Attending Infectious Diseases 11/10/24 [place] Moody MD [address] [address] Warehouse Pricing And Inventory Clerk Cardiology 02/01/19 09/16/24 Michael Quiros MD [address] [address] Referring Physician Interventional Cardiology 09/17/24 Mohan Rico MD [address] [facility] [address] [place] [address] Consulting Physician Pulmonary Disease 09/17/24 Betty Calvin PA [address] [facility] [address] [place] [address] Physician Pitch Worker Orthopedic Surgery 10/08/24 Sybil Alex, [facility] Pharmacist Pharmacy 10/29/24 11/15/24 Rivka Coello, [facility] Pharmacist Pharmacy 11/15/24 11/23/24 Carol Sainz, RN Registered Nurse 12/02/24 Sybil Alex, [facility] Pharmacist Pharmacy 12/08/24 12/24/24 documented as of this encounter
--- OUTSIDE RECORDS SUMMARY | 2025-01-21 15:43 | XMS_ITS | Encounter Summary ---
Author Organization [facility] Facility Care Team Providers Care Property Site Manager Name Role Phone Harry Jorgensen MD Primary Care Provider + [place] Moody MD Unavailable [phone] Michael Quiros MD Unavailable [phone] Mohan Rico MD Unavailable [phone] Betty Calvin Unavailable [phone] Sybil Alex [facility] Unavailable Unavailable Vitaliy Alcazar MD Unavailable [phone] Rivka Coello [facility] Unavailable Unavailable Carol Sainz RN Unavailable Unavailable Sybil Alex [facility] Unavailable Unavailable Encounter Details Date Type Department Care Team (Latest Contact Info) Description 07/01/2017 Orders Only [facility] CLINCONV ProviderKrzysztof MD [address] [place] [address] Social History Tobacco Use Types Packs/Day Years Used Date Smoking Tobacco: Never Alcohol Use Standard Drinks/Week Comments No 0 (1 standard drink = 0.6 oz pur e alcohol) Comments Unknown Sex and Gender Information Value Date Recorded Sex Assigned at Not on file Legal Sex Female 10:24 AM SENIOR SALES EXECUTIVE Gender Identity Female 01/15/2021 9:27 PM CDT Sexual Orientation Straight 01/15/2021 9: 27 PM CDT documented as of this encounter Plan of Treatment Upcoming Encounters Date Type Department Care Team (Latest Contact Info) Description 01/27/2025 7:30 AM CDT Hospital Encounter [facility] Operating Room [address] [place] [address] [place] [address] [facility] [address], [place] [id number] 01/27/2025 7:30 AM CDT - 01/27/2025 9:00 AM CDT Surgery [facility] Operating Room [id number] [place] [address] [place] [address] [facility] [address], [place] [id number] DEBRIDEMENT LEFT KNEE WOUND WITH WOUND VAC PLACEMENT Scheduled Procedures Name Priority Associated Diagnoses Date/Ti me DEBRIDEMENT WOUND Open wound of left knee, initial encounter Other complications of procedures, not elsewhere classified, initial encounter 01/27/2025 7:30 AM CDT documented as of this encounter Procedures Procedure Name Priority Date/Time Associated Diagnosis Comments SCAN - LABS 07/01/2017 12:00 AM SENIOR SALES EXECUTIVE documented in this encounter Results * SCAN - LABS (07/01/2017 12:00 AM SENIOR SALES EXECUTIVE) Narrative 07/01/2017 12:00 AM SENIOR SALES EXECUTIVE Ordered by an unspecified provider. us Historical [...] documented as of this encounter Care Teams Property Site Manager Relationship Specialty Start Date End Date Harry Jorgensen MD PCP - General 09/06/16 Vitaliy Alcazar MD [address] [facility] [address] [place] [address] PCP - Home Infusion Attending Infectious Diseases 11/10/24 [place] Moody MD Bathroom Tiling Professional Cardiology 02/01/19 09/16/24 Michael Quiros MD [address] [place] [address] Referring Physician Interventional Cardiology 09/17/24 Mohan Rico MD [address] [facility] [address] [place] [address] Consulting Physician Pulmonary Disease 09/17/24 Betty Calvin, PA [address] [facility] [address] [place] [address] Physician Metal Miner Blasting Orthopedic Surgery 10/08/24 Sybil Alex, [facility] Pharmacist Pharmacy 10/29/24 11/15/24 Rivka Coello, [facility] Pharmacist Pharmacy 11/15/24 11/23/24 Carol Sainz, RN Registered Nurse 12/02/24 Sybil Alex, [facility] Pharmacist Pharmacy 12/08/24 12/24/24 documented as of this encounter
--- OUTSIDE RECORDS SUMMARY | 2025-01-21 15:43 | XMS_ITS | Encounter Summary ---
Author Organization [facility] Facility Care Team Providers Care Obstetrics Gynecology Md Name Role Phone Harry Jorgensen MD Primary Care Provider + Taqueria Sullivan MD Primary Care Provider [phone] Harry Jorgensen MD Primary Care Provider + [place] Moody MD Unavailable [phone] Michael Quiros MD Unavailable [phone] Mohan Rico MD Unavailable [phone] Betty Calvin Unavailable [phone] Sybil Alex [facility] Unavailable Unavailable Vitaliy Alcazar MD Unavailable [phone] Rivka Coello [facility] Unavailable Unavailable Carol Sainz RN Unavailable Unavailable Sybil Alex [facility] Unavailable Unavailable Encounter Details Date Type Department Care Team (Latest Contact Info) Description 08/21/2016 Orders Only [facility] CLINCONV ProviderKrzysztof MD [address] [place] [address] Social History Tobacco Use Types Packs/Day Years Used Date Smoking Tobacco: Never Alcohol Use Standard Drinks/Week Comments No 0 (1 standard drink = 0.6 oz pur e alcohol) Comments Unknown Sex and Gender Information Value Date Recorded Sex Assigned at Not on file Legal Sex Female 10:24 AM WHISKEY FILTERER Gender Identity Female 01/15/2021 9:27 PM CDT Sexual Orientation Straight 01/15/2021 9: 27 PM CDT documented as of this encounter Plan of Treatment Upcoming Encounters Date Type Department Care Team (Latest Contact Info) Description 01/27/2025 7:30 AM CDT Hospital Encounter [facility] Operating Room [address] [place] [address] [place] [address] [facility] [address] [address] 01/27/2025 7:30 AM CDT - 01/27/2025 9:00 AM CDT Surgery [facility] Operating Room [address] [place] [address] [place] [address] [facility] [address], [place] [id number] DEBRIDEMENT LEFT KNEE WOUND WITH WOUND VAC [...] Not a LTAC/high risk facility. ML 11/04/2024 11/04/202411/0511/05/2024 2:57 PM C DT documented as of this encounter Care Teams Obstetrics Gynecology Md Relationship Specialty Start Date End Date Harry Jorgensen MD PCP - General 09/06/16 Taqueria Sullivan MD [address] [address] PCP - General 08/27/16 09/05/16 Harry Jorgensen MD PCP - General 04/21/14 08/26/16 Vitaliy Alcazar MD [address] [facility] [address] [place] [address] PCP - Home Infusion Attending Infectious Diseases 11/10/24 [place] Moody MD [address] [address] Restaurant General Manager Cardiology 02/01/19 09/16/24 Michael Quiros MD [address] [place] [address] Referring Physician Interventional Cardiology 09/17/24 Mohan Rico MD [address] [facility] [address] [place] [address] Consulting Physician Pulmonary Disease 09/17/24 Betty Calvin PA [address] [facility] [address] [place] [address] Physician Automotive Refinisher Orthopedic Surgery 10/08/24 Sybil Alex, [facility] Pharmacist Pharmacy 10/29/24 11/15/24 Rivka Coello, [facility] Pharmacist Pharmacy 11/15/24 11/23/24 Carol Sainz, RN Registered Nurse 12/02/24 Sybil Alex, [facility] Pharmacist Pharmacy 12/08/24 12/24/24 documented as of this encounter
--- OUTSIDE RECORDS SUMMARY | 2025-01-21 15:43 | XMS_ITS | Clinical Summary ---
Author Organization [facility] Address [address] [place] [address] Care Team Providers Care Community Development Worker Name Role Phone Harry Jorgensen MD Primary Care Provider [phone] Allergies Active Allergy Reactions Criticality Noted Date Comments Atorvastatin Other (see comment) Low 10/29/2018 myalgias on 10 mgs daily Azithromycin Other (see comment) Low 10/29/2018 causes afib Morphine Other (see comment) 03/04/2022 Reaction: Hallucinations, Prednisone Itching Low 10/29/2018 SWELLING,ITCHING Silver Contact Dermatitis High 01/04/2020 Vancomycin Other (see comment),Swelling 03/04/2022 Reaction: Rash, , , Reaction: Swelling, Medications acetaminophen CR (TYLENOL) 650 MG Tab CR 8 hr tablet Take 650 mg by mouth. Active apixaban (ELIQUIS) 5 MG tablet Take 5 mg by mouth 2 (two) times daily. 01/15/2022 Active Biotin 1000 MCG Tab daily. Active Coenzyme Q10 200 MG Cap 200 mg daily. Active Levothyroxine Sodium 150 MCG Cap Take 150 mcg by mouth daily. Active magnesium oxide (MAG-OX) 400 MG tablet 400 mg daily. Active Misc Natural Products (OSTEO BI-FLEX ADV TRIPLE ST) Tab Take by mouth daily. Active Upham 3 1000 MG Cap 1,000 mg 2 (two) times daily. Active rosuvastatin (CRESTOR) 5 MG tablet 02/06/2022 Active saccharomyces boulardii (FLORASTOR) 250 MG capsule 250 mg daily. Active Sotalol HCl 160 MG Tab 12/17/2021 Active verapamil (CALAN SR) 240 MG ER tablet Take 240 mg by mouth daily. 10/11/2021 Active zinc gluconate 50 MG Tab Active Encounters Date Type Department Care Team Description 12/14/2024 Orders Only [facility] [place] [address] Vitaliy Alcazar MD 12/13/2024 12:19 PM CDT - 12/13/2024 11:59 PM CDT Hospital Encounter [facility] [place] [address] Vitaliy Alcazar MD Discharge Disposition: Home or Self Care (Routine Discharge) from Last 3 Months Family History Medical History Relation Comments Cancer Father Stroke Father Stroke Mother Breast Cancer Sister Relation Status Comments Father Mother Sister Social History Tobacco Use Types Packs/Day Years Used Date Smoking Tobacco: Never Smokeless Tobacco: Never Alcohol Use Standard Drinks/Week Comments Never 0 (1 standard drink = 0.6 oz pur e alcohol) Comments Unknown Sex and Gender Information Value Date Recorded Sex Assigned at Not on file Legal Sex Female 11:42 AM TEAM GUIDE Gender Identity Female 03/04/2022 6:03 AM CDT Sexual Orientation Not on file Last Filed Vital Signs Vital Sign Reading Time Taken Comments Blood Pressure 107/66 03/12/2022 10:15 AM CDT Pulse 60 03/12/2022 10:15 AM CDT Temperature 36.4 C (97.6 F) 03/12/2022 9:58 AM CDT Respiratory Rate 21 03/12/2022 10:15 AM CDT Oxygen Saturation 98% 03/12/2022 10:15 AM CDT Inhaled Oxygen Concentration - - Weight 136.1 kg (300 lb) 03/04/2022 9:47 AM CDT Height 165.1 cm (5' 5) 03/04/2022 9:47 AM CDT Body Mass Index 49.92 03/04/2022 9:47 AM CDT Plan of Treatment Health Maintenance Due Date Last Done Comments Hepatitis C 02/28/1966 Pneumococcal Vaccine: 50+ Years (1 of 1 - PCV) 02/28/1998 Zoster Vaccines (1 of 2) 02/28/1998 Annual Medicare Wellness Visit 02/28/2013 Dexa Scan (General) 02/28/2013 RSV Immunization or 60+ Years (1 - 1-dose 75+ series) 02/28/2023 COVID-19 Vaccine (4 - 2023-2 5 season) 2024 06/05/2021, 08/10/2020, 07/17/2020 DTaP, Tdap and Td Vaccines ( 2 - Td or Tdap) 05/02/2032 05/02/2022 Colorectal Cancer Screening Colonoscopy (10 Years) Discontinued 03/12/2022, 03/12/2022 Meningococcal B Vaccine Aged Out No l onger eligible based on patient's age to complete this topic Meningococcal Vaccine Aged Out No dyana galen eligible based on patient's age to complete this topic RSV Immunizations Under 20 Months Aged Out No longer eligible based on patient's age to complete this topic Medical Devices Implanted Type Area Tax Audit Manager Device Identifier Shelf Expiration Date Model / Serial / Lot Pacemaker Foot Knee Foot Procedures Procedure Name Priority Date/Time Associated Diagnosis Comments CBC W/DIFF AUTOMATED Routine 12/13/2024 1:45 PM CDT Infection of right knee ([facility]) COMPREHENSIVE METABOLIC PANEL Routine 12/13/2024 1:45 PM CDT Infection of right knee ([facility]) COLONOSCOPY Routine 03/12/2022 9:55 AM CDT from Last 3 Months or Most Recently Relevant to Health Maintenance Results * (ABNORMAL) COMPREHENSIVE METABOLIC PANEL (12/13/2024 1:45 PM CDT) [facility] Signature GLUCOSE 92 70 - 99 MG/DL 12/14/2024 12:39 PM CDT [facility] BUN 19(H) 7 - 18 MG/DL 12/14/2024 12:39 PM CDT [facility] CREATININE S/P/B 0.70 0.55 - 1.02 MG/DL 12/14/2024 12:39 PM CDT [facility] SODIUM S/P/B 136 136 - 145 MMOL/L 12/14/2024 12:39 PM CDT [facility] POTASSIUM S/P/B 4.7 3.5 - 5.1 MMOL/L 12/14/2024 12:39 PM T [facility] Comment:SLIGHT HEMOLYSIS, RE SULT MAY BE AFFECTED. CHLORIDE S/P/B 103 97 - 115 MMOL/L 12/14/2024 12:39 PM T [facility] CO2 28.6 21 - 32 MMOL/L 12/14/2024 12:39 PM CDT [facility] CALCIUM S/P/B 9.1 8.5 - 10.1 MG/DL 12/14/2024 12:39 PM T [facility] BILIRUBIN TOTAL S/P/B 0.3 0.2 - 1.2 MG/DL 12/14/2024 12:39 PM T [facility] Comment: THIS ASSAY IS NOT RECOMMENDED FOR PATIENTS UNDERGOING TREATMENT WITH ELTROMBOPAG DUE TO THE POTENTIAL FOR FALSELY ELEVATED RESULTS. TOTAL PROTEIN S/P/B 6.3(L) 6.4 - 8.2 G/DL 12/14/2024 12:39 PM T [facility] ALBUMIN S/P/B 2.7(L) 3.4 - 5.0 G/DL 12/14/2024 12:39 PM T [facility] AST 41(H) 15 - 37 U/L 12/14/2024 12:39 PM T [facility] Comment:SLIGHT HEMOLYSIS, RE SULT MAY BE AFFECTED. ALT 20 14 - 55 U/L 12/14/2024 12:39 PM T [facility] ALKALINE PHOSPHATASE S/P/B 135 50 - 136 U/L 12/14/2024 12:39 PM T [facility] ANION GAP 4.4 2 - 10 MMOL/L 12/14/2024 12:39 PM CDT [facility] BUN CREATININE RATIO 27.3(H) 6 - 26 12/14/2024 12:39 PM CDT [facility] A/G RATIO 0.8(L) 1.0 - 2.0 RATIO 12/14/2024 12:39 PM CDT [facility] GFR ESTIMATE 90(L) >90 ML/MIN/1.7 3 M2 12/14/2024 12:39 PM CDT [facility] Comment: NOTE: eGFR is not calculated for patients <18 years of age or gender unknown. This is an estimated GFR calculation using the new CKD EPI creatinine equation without race and so does not require a correction factor for race. This estimated GFR should not be used for calculating drug doses. 12/13/2024 1:45 PM CDT us Vitaliy Alcazar MD LABORATORY Final Result [facility] [address] [place] [address], [place] [phone] * (ABNORMAL) CBC W/DIFF AUTOMATED (12/13/2024 1:45 PM CDT) WBC 10.73 4.5 - 11.0 x10'3/uL 12/14/2024 12:30 PM CDT [facility] RBC 3.29(L) 4.20 - 5.40 x10'6/uL 12/14/2024 12:30 PM CDT [facility] HGB 9.5(L) 12.0 - 16.0 G/DL 12/14/2024 12:30 PM CDT [facility] HCT 30.5(L) 38.0 - 48.0 % 12/14/2024 12:30 PM CDT [facility] MCV 92.7 81.0 - 99.0 FL 12/14/2024 12:30 PM CDT [facility] MCH 28.9 27.0 - 31.0 PG 12/14/2024 12:30 PM CDT [facility] MCHC 31.1(L) 32.0 - 36.0 G/DL 12/14/2024 12:30 PM CDT [facility] RDW 13.5 11.5 - 14.5 % 12/14/2024 12:30 PM CDT [facility] PLT 248 130 - 400 x10'3/uL 12/14/2024 12:30 PM CDT [facility] MPV 10.3 9.3 - 12.2 FL 12/14/2024 12:30 PM CDT [facility] DIFFERENTIAL TYPE AUTOMATED DIFFERENTIAL 12/14/2024 12:30 PM CDT [facility] NEUTROPHILS % 71.6 % 12/14/2024 12:30 PM CDT [facility] LYMPHOCYTES % 13.0 % 12/14/2024 12:30 PM CDT [facility] MONOCYTES % 10.7 % 12/14/2024 12:30 PM CDT [facility] EOSINOPHILS 2.7 % 12/14/2024 12:30 PM CDT [facility] BASOPHILS 0.8 % 12/14/2024 12:30 PM CDT [facility] IMMATURE GRANS % 1.2 % 12/15/19 12:30 PM CDT [facility] ABS. NEUTROPHILS 7.68 1.80 - 7.70 x10'3/uL 12/14/2024 12:30 PM CDT [facility] ABS. LYMPHOCYTES 1.39 1.00 - 4.80 x10'3/uL 12/14/2024 12:30 PM CDT [facility] ABS. MONOCYTES 1.15(H) 0.24 - 0.86 x10'3/uL 12/14/2024 12:30 PM CDT [facility] ABS. EOSINOPHILS 0.29 0.04 - 0.36 x10'3/uL 12/14/2024 12:30 PM CDT [facility] ABS. BASOPHILS 0.09(H) 0.01 - 0.08 x10'3/uL 12/14/2024 12:30 PM CDT [facility] ABS. IMMATURE GRANULOCYTES 0.13 0.00 - 0.49 x10'3/uL 12/14/2024 12:30 PM CDT [facility] 12/13/2024 1:45 PM CDT Vitaliy Alcazar MD LABORATORY Final Result [facility] [address] [place] [address], [place] [phone] * Colonoscopy (03/12/2022 9:55 AM CDT) Narrative Elvin Glaser MD - 03/12/2022 9:55 AM CDT Elvin Glaser MD 03/12/2022 10:05 AM ELVIN GLASER MD, FACG, FACP COLONOSCOPY 03/12/2022 INDICATION: Acute diverticulitis. POST-OP: Four polyps removed. Moderately severe diverticulosis-tattooed. SEDATION: Per Anesthesia PREP: Good. With the patient in the left lateral decubitus position, the Olympus [id number] colonoscope was introduced into the rectum and advanced easily to the Terminal Ileum. Careful inspection of the mucosa was made upon insertion and withdrawal of the endoscope. FINDINGS: Terminal ileum: distal 5 cm normal. Cecum, Ascending colon and Rectum including retroflexion normal. Transverse colon: 5 mm sessile polyp x 2 removed with cold biopsy forceps without bleed. Descending colon: 1.0 cm sessile polyp removed with snare polypectomy without bleed. Sigmoid colon: - 5 mm sessile polyp removed with cold biopsy forceps without bleed - Moderately severe diverticulosis from 20->35 cm - Yani ink 1 cc x 2 just above proximal extent of diverticulosis - Yani ink 1 cc x 2 just below distal extent of diverticulosis No masses, AVMs or colitis seen. No complications, blood loss or implants. ASSESSMENT AND PLAN: A. Four polyps removed: if adenomatous repeat colonoscopy in three years, otherwise given age, no repeat colonoscopy needed. B. Acute diverticulitis: - Resolved clinically - Moderately severe sigmoid colon diverticulosis - Proximal and distal extent tattooed - Patient has had at least three significant episodes - Consider surgical resection of this area Thank you for allowing me to care for your patient. She will follow-up with Dr. Jorgensen as needed. Elvin Glaser M.D. Cc: Dr. CIRA Jorgensen Elvin Glaser MD GI PROCEDURE ORDERABLES Fin al Result from Last 3 Months or Most Recently Relevant to Health Maintenance Insurance [place] [id number] [place] [address] Care Teams Community Development Worker Relationship Specialty Start Date End Date Harry Jorgensen MD [facility] [place] [address] PCP - General FAMILY PRACTICE 07/28/19
--- OUTSIDE RECORDS SUMMARY | 2025-01-21 15:43 | XMS_ITS | Encounter Summary ---
Author Organization [facility] Facility Care Team Providers Care Cupola Charger Insulation Name Role Phone Harry Jorgensen MD Primary Care Provider + Truman Moody MD Unavailable [phone] Michael Quiros MD Unavailable [phone] Mohan Rico MD Unavailable [phone] Betty Calvin Unavailable [phone] Sybil Alex [facility] Unavailable Unavailable Vitaliy Alcazar MD Unavailable [phone] Rivka Coello [facility] Unavailable Unavailable Carol Sainz RN Unavailable Unavailable Sybil Alex [facility] Unavailable Unavailable Encounter Details Date Type Department Care Team (Latest Contact Info) Description 11/10/2017 Orders Only [facility]G CLINCONV ProviderKrzysztof MD [address] [place] [address] Social History Tobacco Use Types Packs/Day Years Used Date Smoking Tobacco: Never Alcohol Use Standard Drinks/Week Comments No 0 (1 standard drink = 0.6 oz pur e alcohol) Comments Unknown Sex and Gender Information Value Date Recorded Sex Assigned at Not on file Legal Sex Female 10:24 AM VAN HELPER Gender Identity Female 01/15/2021 9:27 PM CDT Sexual Orientation Straight 01/15/2021 9: 27 PM CDT documented as of this encounter Plan of Treatment Upcoming Encounters Date Type Department Care Team (Latest Contact Info) Description 01/27/2025 7:30 AM CDT Hospital Encounter [facility] Operating Room [address] [place] [address] [place] [address] [facility] [address], [place] [id number] 01/27/2025 7:30 AM CDT - 01/27/2025 9:00 AM CDT Surgery [facility] Operating Room [id number] [place] [address] [place] [address] [facility] [address], [place] [id number] DEBRIDEMENT LEFT KNEE WOUND WITH WOUND VAC [...] documented as of this encounter Care Teams Cupola Charger Insulation Relationship Specialty Start Date End Date Harry Jorgensen MD PCP - General 09/06/16 Vitaliy Alcazar MD [address] [facility] [address] [place] [address] PCP - Home Infusion Attending Infectious Diseases 11/10/24 Truman Moody MD Chicken Dresser Cardiology 02/01/19 09/16/24 Michael Quiros MD [address] [place] [address] Referring Physician Interventional Cardiology 09/17/24 Mohan Rico MD [address] [facility] [address] [place] [address] Consulting Physician Pulmonary Disease 09/17/24 Betty Calvin PA [address] [facility] [address] [place] [address] Physician Market Gardener Orthopedic Surgery 10/08/24 Sybil Alex, [facility] Pharmacist Pharmacy 10/29/24 11/15/24 Rivka Coello [facility] Pharmacist Pharmacy 11/15/24 11/23/24 Carol Sainz, RN Registered Nurse 12/02/24 Sybil Alex, [facility] Pharmacist Pharmacy 12/08/24 12/24/24 documented as of this encounter
--- OUTSIDE RECORDS SUMMARY | 2025-01-21 15:43 | XMS_ITS | Encounter Summary ---
Author Organization [facility] Facility Care Team Providers Care Electromechanical Assembler Name Role Phone Harry Jorgensen MD Primary Care Provider + Truman Moody MD Unavailable [phone] Michael Quiros MD Unavailable [phone] Mohan Rico MD Unavailable [phone] Betty Calvin Unavailable [phone] Sybil Alex [facility] Unavailable Unavailable Vitaliy Alcazar MD Unavailable [phone] Rivka Coello [facility] Unavailable Unavailable Carol Sainz RN Unavailable Unavailable Sybil Alex [facility] Unavailable Unavailable Encounter Details Date Type Department Care Team (Latest Contact Info) Description 01/16/2018 Orders Only MMG CLINCONV ProviderKrzysztof MD [address] [place] [address] Social History Tobacco Use Types Packs/Day Years Used Date Smoking Tobacco: Never Alcohol Use Standard Drinks/Week Comments No 0 (1 standard drink = 0.6 oz pur e alcohol) Comments Unknown Sex and Gender Information Value Date Recorded Sex Assigned at Not on file Legal Sex Female 10:24 AM SILK WEAVER Gender Identity Female 01/15/2021 9:27 PM CDT Sexual Orientation Straight 01/15/2021 9: 27 PM CDT documented as of this encounter Plan of Treatment Upcoming Encounters Date Type Department Care Team (Latest Contact Info) Description 01/27/2025 7:30 AM CDT Hospital Encounter [facility] Operating Room [address] [place] [address] [place] [address] [facility] [address], [place] [id number] 01/27/2025 7:30 AM CDT - 01/27/2025 9:00 AM CDT Surgery [facility] Operating Room [address] [place] [address] [place] [address] [facility] [address], [place] [id number] DEBRIDEMENT LEFT KNEE WOUND WITH WOUND VAC [...] documented as of this encounter Care Teams Electromechanical Assembler Relationship Specialty Start Date End Date Harry Jorgensen MD PCP - General 09/06/16 Vitaliy Alcazar MD [address] [facility] [address] [place] [address] PCP - Home Infusion Attending Infectious Diseases 11/10/24 Truman Moody MD Police Pilot Cardiology 02/01/19 09/16/24 Michael Quiros MD [address] [place] [address] Referring Physician Interventional Cardiology 09/17/24 Mohan Rico MD [address] [facility] [address] [place] [address] Consulting Physician Pulmonary Disease 09/17/24 Betty Calvin PA [address] [facility] [address] [place] [address] Physician Bias Machine Operator Orthopedic Surgery 10/08/24 Sybil Alex, [facility] Pharmacist Pharmacy 10/29/24 11/15/24 Rivka Coello, [facility] Pharmacist Pharmacy 11/15/24 11/23/24 Carol Sainz, RN Registered Nurse 12/02/24 Sybil Alex, [facility] Pharmacist Pharmacy 12/08/24 12/24/24 documented as of this encounter
--- OUTSIDE RECORDS SUMMARY | 2025-01-21 15:43 | XMS_ITS | Encounter Summary ---
Author Organization [facility] Facility Care Team Providers Care Cold Roll Operator Name Role Phone Harry Jorgensen MD Primary Care Provider + Truman Moody MD Unavailable [phone] Michael Quiros MD Unavailable [phone] Mohan Rico MD Unavailable [phone] Betty Calvin Unavailable [phone] Sybil Alex [facility] Unavailable Unavailable Vitaliy Alczaar MD Unavailable [phone] Rivka Coello [facility] Unavailable Unavailable Carol Sainz RN Unavailable Unavailable Sybil Alex [facility] Unavailable Unavailable Encounter Details Date Type Department Care Team (Latest Contact Info) Description 09/25/2016 Orders Only MMG CLINCONV ProviderKrzysztof MD [address] [place] [address] Social History Tobacco Use Types Packs/Day Years Used Date Smoking Tobacco: Never Alcohol Use Standard Drinks/Week Comments No 0 (1 standard drink = 0.6 oz pur e alcohol) Comments Unknown Sex and Gender Information Value Date Recorded Sex Assigned at Not on file Legal Sex Female 10:24 AM SVP [employer] Gender Identity Female 01/15/2021 9:27 PM CDT Sexual Orientation Straight 01/15/2021 9: 27 PM CDT documented as of this encounter Plan of Treatment Upcoming Encounters Date Type Department Care Team (Latest Contact Info) Description 01/27/2025 7:30 AM CDT Hospital Encounter [facility] Operating Room [address] [place] [address] [place] [address] [facility] [address], [place] [id number] 01/27/2025 7:30 AM CDT - 01/27/2025 9:00 AM CDT Surgery [facility] Operating Room [address] [place] [address] [place] [address] [facility] [address], [place] [id number] DEBRIDEMENT LEFT KNEE WOUND WITH WOUND VAC [...] documented as of this encounter Care Teams Cold Roll Operator Relationship Specialty Start Date End Date Harry Jorgensen MD PCP - General 09/06/16 Vitaliy Alcazar MD [address] [facility] [address] [place] [address] PCP - Home Infusion Attending Infectious Diseases 11/10/24 Truman Moody MD College Hire Cardiology 02/01/19 09/16/24 Michael Quiros MD [address] [place] [address] Referring Physician Interventional Cardiology 09/17/24 Mohan Rico MD [address] [facility] [address] [place] [address] Consulting Physician Pulmonary Disease 09/17/24 Betty Calvin PA [address] [facility] [address] [place] [address] Physician Pasteurizer Orthopedic Surgery 10/08/24 Sybil Alex, [facility] Pharmacist Pharmacy 10/29/24 11/15/24 Rivka Coello, [facility] Pharmacist Pharmacy 11/15/24 11/23/24 Carol Sainz, [place] Registered Nurse 12/02/24 Sybil Alex, [facility] Pharmacist Pharmacy 12/08/24 12/24/24 documented as of this encounter
--- OUTSIDE RECORDS SUMMARY | 2025-01-21 15:43 | XMS_ITS | Encounter Summary ---
Author Organization [facility] Facility Care Team Providers Care Gmat Tutor Name Role Phone Harry Jorgensen MD Primary Care Provider + Truman Moody MD Unavailable [phone] Michael Quiros MD Unavailable [phone] Mohan Rico MD Unavailable [phone] Betty Calvin Unavailable [phone] Sybil Alex [facility] Unavailable Unavailable Vitaliy Alcazar MD Unavailable [phone] Rivka Coello [facility] Unavailable Unavailable Carol Sainz RN Unavailable Unavailable Sybil Alex [facility] Unavailable Unavailable Encounter Details Date Type Department Care Team (Latest Contact Info) Description 12/09/2017 Orders Only MMG CLINCONV ProviderKrzysztof MD [address] [place] [address] Social History Tobacco Use Types Packs/Day Years Used Date Smoking Tobacco: Never Alcohol Use Standard Drinks/Week Comments No 0 (1 standard drink = 0.6 oz pur e alcohol) Comments Unknown Sex and Gender Information Value Date Recorded Sex Assigned at Not on file Legal Sex Female 10:24 AM HALF SECTION IRONER Gender Identity Female 01/15/2021 9:27 PM CDT Sexual Orientation Straight 01/15/2021 9: 27 PM CDT documented as of this encounter Plan of Treatment Upcoming Encounters Date Type Department Care Team (Latest Contact Info) Description 01/27/2025 7:30 AM CDT Hospital Encounter [facility] Operating Room [address] [place] [address] [place] [address] [facility] [address], [place] [id number] 01/27/2025 7:30 AM CDT - 01/27/2025 9:00 AM CDT Surgery [facility] Operating Room [address] [place] [address] [place] [address] [facility] [address], [place] [id number] DEBRIDEMENT LEFT KNEE WOUND WITH WOUND VAC [...] documented as of this encounter Care Teams Gmat Tutor Relationship Specialty Start Date End Date Harry Jorgensen MD PCP - General 09/06/16 Vitaliy Alcazar MD [address] [facility] [address] [place] [address] PCP - Home Infusion Attending Infectious Diseases 11/10/24 Truman Moody MD Speech Therapist Technician Cardiology 02/01/19 09/16/24 Michael Quiros MD [address] [place] [address] Referring Physician Interventional Cardiology 09/17/24 Mohan Rico MD [address] [facility] [address] [place] [address] Consulting Physician Pulmonary Disease 09/17/24 Betty Calvin PA [address] [facility] [address] [place] [address] Physician Clinical Engineering Director Orthopedic Surgery 10/08/24 Sybil Alex, [facility] Pharmacist Pharmacy 10/29/24 11/15/24 Rivka Coello [facility] Pharmacist Pharmacy 11/15/24 11/23/24 Carol Sainz, RN Registered Nurse 12/02/24 Sybil Alex, [facility] Pharmacist Pharmacy 12/08/24 12/24/24 documented as of this encounter
--- OUTSIDE RECORDS SUMMARY | 2025-01-21 15:43 | XMS_ITS | Encounter Summary ---
Author Organization [facility] Facility Care Team Providers Care Truck Hopper Name Role Phone Harry Jorgensen MD Primary Care Provider + Truman Moody MD Unavailable [phone] Michael Quiros MD Unavailable [phone] Mohan Rico MD Unavailable [phone] Betty Calvin Unavailable [phone] Sybil Alex [facility] Unavailable Unavailable Vitaliy Alcazar MD Unavailable [phone] Rivka Coello [facility] Unavailable Unavailable Carol Sainz RN Unavailable Unavailable Sybil Alex [facility] Unavailable Unavailable Encounter Details Date Type Department Care Team (Latest Contact Info) Description 10/09/2016 Orders Only MMG CLINCONV ProviderKrzysztof MD [address] [place] [address] Social History Tobacco Use Types Packs/Day Years Used Date Smoking Tobacco: Never Alcohol Use Standard Drinks/Week Comments No 0 (1 standard drink = 0.6 oz pur e alcohol) Comments Unknown Sex and Gender Information Value Date Recorded Sex Assigned at Not on file Legal Sex Female 10:24 AM 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 PARK ENTERTAINER Gender Identity Female 01/15/2021 9:27 PM CDT Sexual Orientation Straight 01/15/2021 9: 27 PM CDT documented as of this encounter Plan of Treatment Upcoming Encounters Date Type Department Care Team (Latest Contact Info) Description 01/27/2025 7:30 AM CDT Hospital Encounter [facility] Operating Room [address] [place] [address] [place] [address] [facility] [address], [place] [id number] 01/27/2025 7:30 AM CDT - 01/27/2025 9:00 AM CDT Surgery [facility] Operating Room [address] [place] [address] [place] [address] [facility] [address], [place] [id number] DEBRIDEMENT LEFT KNEE WOUND WITH WOUND VAC [...] documented as of this encounter Care Teams Truck Hopper Relationship Specialty Start Date End Date Harry Jorgensen MD PCP - General 09/06/16 Vitaliy Alcazar MD [address] [facility] [address] [place] [address] PCP - Home Infusion Attending Infectious Diseases 11/10/24 Truman Moody MD Nutritionist Public Health Cardiology 02/01/19 09/16/24 Michael Quiros MD [address] [place] [address] Referring Physician Interventional Cardiology 09/17/24 Mohan Rico MD [address] [facility] [address] [place] [address] Consulting Physician Pulmonary Disease 09/17/24 Betty Calvin PA [address] [facility] [address] [place] [address] Physician Aerial Survey Technician Orthopedic Surgery 10/08/24 Sybil Alex, [facility] Pharmacist Pharmacy 10/29/24 11/15/24 Rivka Coello [facility] Pharmacist Pharmacy 11/15/24 11/23/24 Carol Sainz, RN Registered Nurse 12/02/24 Sybil Alex, [facility] Pharmacist Pharmacy 12/08/24 12/24/24 documented as of this encounter
--- OUTSIDE RECORDS SUMMARY | 2025-01-21 15:43 | XMS_ITS | Encounter Summary ---
Author Organization [facility] Facility Care Team Providers Care Engineering Team Supervisor Name Role Phone Harry Jorgensen MD Primary Care Provider + Truman Moody MD Unavailable [phone] Michael Quiros MD Unavailable [phone] Mohan Rico MD Unavailable [phone] Betty Calvin Unavailable [phone] Sybil Alex [facility] Unavailable Unavailable Vitaliy Alcazar MD Unavailable [phone] Rivka Coello [facility] Unavailable Unavailable Carol Sainz RN Unavailable Unavailable Sybil Alex [facility] Unavailable Unavailable Encounter Details Date Type Department Care Team (Latest Contact Info) Description 07/29/2017 Orders Only MMG CLINCONV ProviderKrzysztof MD [address] [place] [address] Social History Tobacco Use Types Packs/Day Years Used Date Smoking Tobacco: Never Alcohol Use Standard Drinks/Week Comments No 0 (1 standard drink = 0.6 oz pur e alcohol) Comments Unknown Sex and Gender Information Value Date Recorded Sex Assigned at Not on file Legal Sex Female 10:24 AM INSTALLMENT LOAN COLLECTOR Gender Identity Female 01/15/2021 9:27 PM CDT Sexual Orientation Straight 01/15/2021 9: 27 PM CDT documented as of this encounter Plan of Treatment Upcoming Encounters Date Type Department Care Team (Latest Contact Info) Description 01/27/2025 7:30 AM CDT Hospital Encounter [facility] Operating Room [address] [place] [address] [place] [address] [facility] [address], [place] [id number] 01/27/2025 7:30 AM CDT - 01/27/2025 9:00 AM CDT Surgery [facility] Operating Room [address] [place] [address] [place] [address] [facility] [address], [place] [id number] DEBRIDEMENT LEFT KNEE WOUND WITH WOUND VAC PLACEMENT Scheduled Procedures Name Priority Associated Diagnoses Date/Ti me DEBRIDEMENT WOUND Open wound of left knee, initial encounter Other complications of procedures, not elsewhere classified, initial encounter 01/27/2025 7:30 AM CDT documented as of this encounter Procedures Procedure Name Priority Date/Time Associated Diagnosis Comments SCAN - LABS 07/29/2017 12:00 AM INSTALLMENT LOAN COLLECTOR documented in this encounter Results * SCAN - LABS (07/29/2017 12:00 AM INSTALLMENT LOAN COLLECTOR) Narrative 07/29/2017 12:00 AM INSTALLMENT LOAN COLLECTOR Ordered by an unspecified provider. us Historical [...] documented as of this encounter Care Teams Engineering Team Supervisor Relationship Specialty Start Date End Date Harry Jorgensen MD PCP - General 09/06/16 Vitaliy Alcazar MD [address] [facility] [address] [place] [address] PCP - Home Infusion Attending Infectious Diseases 11/10/24 Truman Moody MD Glass Tube Bender Cardiology 02/01/19 09/16/24 Michael Quiros MD [address] [place] [address] Referring Physician Interventional Cardiology 09/17/24 Mohan Rico MD [address] [facility] [address] [place] [address] Consulting Physician Pulmonary Disease 09/17/24 Betty Calvin, PA [address] [facility] [address] [place] [address] Physician Handhole Machine Operator Orthopedic Surgery 10/08/24 Sybil Alex, [facility] Pharmacist Pharmacy 10/29/24 11/15/24 Rivka Coello, [facility] Pharmacist Pharmacy 11/15/24 11/23/24 Carol Sainz, RN Registered Nurse 12/02/24 Sybil Alex, [facility] Pharmacist Pharmacy 12/08/24 12/24/24 documented as of this encounter
--- OUTSIDE RECORDS SUMMARY | 2025-01-21 15:43 | XMS_ITS | Encounter Summary ---
Author Organization [facility] Facility Care Team Providers Care Thermal Intelligence Analyst Name Role Phone Harry Jorgensen MD Primary Care Provider + Truman Moody MD Unavailable [phone] Michael Quiros MD Unavailable [phone] Mohan Rico MD Unavailable [phone] Betty Calvin Unavailable [phone] Sybil Alex [facility] Unavailable Unavailable Vitaliy Alcazar MD Unavailable [phone] Rivka Coello [facility] Unavailable Unavailable Carol Sainz RN Unavailable Unavailable Sybil Alex [facility] Unavailable Unavailable Encounter Details Date Type Department Care Team (Latest Contact Info) Description 08/05/2017 Orders Only MMG CLINCONV ProviderKrzysztof MD [address] [place] [address] Social History Tobacco Use Types Packs/Day Years Used Date Smoking Tobacco: Never Alcohol Use Standard Drinks/Week Comments No 0 (1 standard drink = 0.6 oz pur e alcohol) Comments Unknown Sex and Gender Information Value Date Recorded Sex Assigned at Not on file Legal Sex Female 10:24 AM MASTER AUTOMOTIVE TECHNICIAN Gender Identity Female 01/15/2021 9:27 PM CDT Sexual Orientation Straight 01/15/2021 9: 27 PM CDT documented as of this encounter Plan of Treatment Upcoming Encounters Date Type Department Care Team (Latest Contact Info) Description 01/27/2025 7:30 AM CDT Hospital Encounter [facility] Operating Room [address] [place] [address] [place] [address] [facility] [address], [place] [id number] 01/27/2025 7:30 AM CDT - 01/27/2025 9:00 AM CDT Surgery [facility] Operating Room [id number] [place] [address] [place] [address] [facility] [address], [place] [id number] DEBRIDEMENT LEFT KNEE WOUND WITH WOUND VAC PLACEMENT Scheduled Procedures Name Priority Associated Diagnoses Date/Ti me DEBRIDEMENT WOUND Open wound of left knee, initial encounter Other complications of procedures, not elsewhere classified, initial encounter 01/27/2025 7:30 AM CDT documented as of this encounter Procedures Procedure Name Priority Date/Time Associated Diagnosis Comments SCAN - LABS 08/05/2017 12:00 AM MASTER AUTOMOTIVE TECHNICIAN documented in this encounter Results * SCAN - LABS (08/05/2017 12:00 AM MASTER AUTOMOTIVE TECHNICIAN) Narrative 08/05/2017 12:00 AM MASTER AUTOMOTIVE TECHNICIAN Ordered by an unspecified provider. us Historical [...] documented as of this encounter Care Teams Thermal Intelligence Analyst Relationship Specialty Start Date End Date Harry Jorgensen MD PCP - General 09/06/16 Vitaliy Alcazar MD [address] [facility] [address] [place] [address] PCP - Home Infusion Attending Infectious Diseases 11/10/24 Truman Moody MD Media Relations Intern Cardiology 02/01/19 09/16/24 Michael Quiros MD [address] [place] [address] Referring Physician Interventional Cardiology 09/17/24 Mohan Rico MD [address] [facility] [address] [place] [address] Consulting Physician Pulmonary Disease 09/17/24 Betty Calvin, PA [address] [facility] [address] [place] [address] Physician Load Checker Orthopedic Surgery 10/08/24 Sybil Alex, [facility] Pharmacist Pharmacy 10/29/24 11/15/24 Rivka Coello, [facility] Pharmacist Pharmacy 11/15/24 11/23/24 Carol Sainz, RN Registered Nurse 12/02/24 Sybil Alex, [facility] Pharmacist Pharmacy 12/08/24 12/24/24 documented as of this encounter
--- OUTSIDE RECORDS SUMMARY | 2025-01-21 15:43 | XMS_ITS | Encounter Summary ---
Author Organization [facility] Care Team Providers Care Property Insurance Inspector Name Role Phone Harry Jorgensen MD Primary Care Provider + Truman Moody MD Unavailable [phone] Michael Quiros MD Unavailable [phone] Mohan Rico MD Unavailable [phone] Betty Calvin Unavailable [phone] Sybil Alex [facility] Unavailable Unavailable Vitaliy Alcazar MD Unavailable [phone] Rivka Coello [facility] Unavailable Unavailable Carol Sainz RN Unavailable Unavailable Sybil Alex [facility] Unavailable Unavailable Encounter Details Date Type Department Care Team (Latest Contact Info) Description 10/23/2017 Orders Only [facility]G CLINCONV ProviderKrzysztof MD [address] [place] [address] Social History Tobacco Use Types Packs/Day Years Used Date Smoking Tobacco: Never Alcohol Use Standard Drinks/Week Comments No 0 (1 standard drink = 0.6 oz pur e alcohol) Comments Unknown Sex and Gender Information Value Date Recorded Sex Assigned at Not on file Legal Sex Female 10:24 AM SIGN DESIGNER Gender Identity Female 01/15/2021 9:27 PM CDT Sexual Orientation Straight 01/15/2021 9: 27 PM CDT documented as of this encounter Plan of Treatment Upcoming Encounters Date Type Department Care Team (Latest Contact Info) Description 01/27/2025 7:30 AM CDT Hospital Encounter [facility] Operating Room [address] [place] [address] [place] [address] [facility] [address], [place] [id number] 01/27/2025 7:30 AM CDT - 01/27/2025 9:[address] [facility] Operating Room [id number] [place] [address] [place] [address] [facility] [address], [place] [id number] DEBRIDEMENT LEFT KNEE WOUND WITH WOUND VAC [...] as of this encounter Care Teams Property Insurance Inspector Relationship Specialty Start Date End Date Harry Jorgensen MD PCP - General 09/06/16 Vitaliy Alcazar MD [address] [facility] [address] [place] [address] PCP - Home Infusion Attending Infectious Diseases 11/10/24 Truman Moody MD Drum Printer Cardiology 02/01/19 09/16/24 Michael Quiros MD [address] [place] [address] Referring Physician Interventional Cardiology 09/17/24 Mohan Rico MD [address] [facility] [address] [place] [address] Consulting Physician Pulmonary Disease 09/17/24 Betty Calvin PA [address] [facility] [address] [place] [address] Physician Stock Associate Orthopedic Surgery 10/08/24 Sybil Alex, [facility] Pharmacist Pharmacy 10/29/24 11/15/24 Rivka Coello [facility] Pharmacist Pharmacy 11/15/24 11/23/24 Carol Sainz, RN Registered Nurse 12/02/24 Sybil Alex, [facility] Pharmacist Pharmacy 12/08/24 12/24/24 documented as of this encounter
--- OUTSIDE RECORDS SUMMARY | 2025-01-21 15:43 | XMS_ITS | Encounter Summary ---
Author Organization [facility] Facility Care Team Providers Care Grinding And Polishing Laborer Name Role Phone aHrry Jorgensen MD Primary Care Provider + Taqueria Sullivan MD Primary Care Provider [phone] Harry Jorgensen MD Primary Care Provider + Truman Moody MD Unavailable [phone] Michael Quiros MD Unavailable [phone] Mohan Rico MD Unavailable [phone] Betty Calvin Unavailable [phone] Sybil Alex [facility] Unavailable Unavailable Vitaliy Alcazar MD Unavailable [phone] Rivka Coello [facility] Unavailable Unavailable Carol Sainz RN Unavailable Unavailable Sybil Alex [facility] Unavailable Unavailable Encounter Details Date Type Department Care Team (Latest Contact Info) Description 08/08/2016 Orders Only MMG CLINCONV ProviderKrzysztof MD [address] [place] [address] Social History Tobacco Use Types Packs/Day Years Used Date Smoking Tobacco: Never Alcohol Use Standard Drinks/Week Comments No 0 (1 standard drink = 0.6 oz pur e alcohol) Comments Unknown Sex and Gender Information Value Date Recorded Sex Assigned at Not on file Legal Sex Female 10:24 AM CHECKER CASHIER Gender Identity Female 01/15/2021 9:27 PM CDT Sexual Orientation Straight 01/15/2021 9: 27 PM CDT documented as of this encounter Plan of Treatment Upcoming Encounters Date Type Department Care Team (Latest Contact Info) Description 01/27/2025 7:30 AM CDT Hospital Encounter [facility] Operating Room [id number] [place] [address] [place] [address] [facility] [address], [place] [address] 01/27/2025 7:30 AM CDT - 01/27/2025 9:00 AM CDT Surgery [facility] Operating Room [id number] [place] [address] [place] [address] [facility] [address], [place] [id number] DEBRIDEMENT LEFT KNEE WOUND WITH WOUND VAC PLACEMENT Scheduled Procedures Name Priority Associated Diagnoses Date/Ti me DEBRIDEMENT WOUND Open wound of left knee, initial encounter Other complications of procedures, not elsewhere classified, initial encounter 01/27/2025 7:30 AM CDT documented as of this encounter Procedures Procedure Name Priority Date/Time Associated Diagnosis Comments SCAN - LABS 08/08/2016 12:00 AM CHECKER CASHIER documented in this encounter Results * SCAN - LABS (08/08/2016 12:00 AM CHECKER CASHIER) Narrative 08/08/2016 12:00 AM CHECKER CASHIER Ordered by an unspecified provider. us Historical [...] documented as of this encounter Care Teams Grinding And Polishing Laborer Relationship Specialty Start Date End Date Harry Jorgensen MD PCP - General 09/06/16 Taqueria Sullivan MD [address] [address] PCP - General 08/27/16 09/05/16 Harry Jorgensen MD PCP - General 04/21/14 08/26/16 Vitaliy Alcazar MD [address] [facility] [address] [place] [address] PCP - Home Infusion Attending Infectious Diseases 11/10/24 Truman Moody MD [address] [address] Jersey Knitter Cardiology 02/01/19 09/16/24 Michael Quiros MD [address] [address] Referring Physician Interventional Cardiology 09/17/24 Mohan Rico MD [address] [facility] [address] [place] [address] Consulting Physician Pulmonary Disease 09/17/24 Betty Calvin PA [address] [facility] [address] [place] [address] Physician Portrait Artist Orthopedic Surgery 10/08/24 Sybil Alex, [facility] Pharmacist Pharmacy 10/29/24 11/15/24 Rivka Coello, [facility] Pharmacist Pharmacy 11/15/24 11/23/24 Carol Sainz, RN Registered Nurse 12/02/24 Sybil Alex, [facility] Pharmacist Pharmacy 12/08/24 12/24/24 documented as of this encounter
--- OUTSIDE RECORDS SUMMARY | 2025-01-21 15:43 | XMS_ITS | Encounter Summary ---
Author Organization [facility] Facility Care Team Providers Care Physician Underwriter Name Role Phone Harry Jorgensen MD Primary Care Provider + Truman Moody MD Unavailable [phone] Michael Quiros MD Unavailable [phone] Mohan Rico MD Unavailable [phone] Betty Calvin Unavailable [phone] Sybil Alex [facility] Unavailable Unavailable Vitaliy Alcazar MD Unavailable [phone] Rivka Coello [facility] Unavailable Unavailable Carol Sainz RN Unavailable Unavailable Sybil Alex [facility] Unavailable Unavailable Encounter Details Date Type Department Care Team (Latest Contact Info) Description 12/31/2017 Orders Only MMG CLINCONV ProviderKrzysztof MD [address] [place] [address] Social History Tobacco Use Types Packs/Day Years Used Date Smoking Tobacco: Never Alcohol Use Standard Drinks/Week Comments No 0 (1 standard drink = 0.6 oz pur e alcohol) Comments Unknown Sex and Gender Information Value Date Recorded Sex Assigned at Not on file Legal Sex Female 10:24 AM TELEVISION NEWS VIDEO EDITOR Gender Identity Female 01/15/2021 9:27 PM CDT Sexual Orientation Straight 01/15/2021 9: 27 PM CDT documented as of this encounter Plan of Treatment Upcoming Encounters Date Type Department Care Team (Latest Contact Info) Description 01/27/2025 7:30 AM CDT Hospital Encounter [facility] Operating Room [address] [place] [address] [place] [address] [facility][1] [address], [place] [id number] 01/27/2025 7:30 AM CDT - 01/27/2025 9:00 AM CDT Surgery [facility] Operating Room [id number] [place] [address] [place] [address] [facility][1] [address], [place] [id number] DEBRIDEMENT LEFT KNEE WOUND WITH WOUND VAC [...] documented as of this encounter Care Teams Physician Underwriter Relationship Specialty Start Date End Date Harry Jorgensen MD PCP - General 09/06/16 Vitaliy Alcazar MD 4600 [facility] [address] [place] [address] PCP - Home Infusion Attending Infectious Diseases 11/10/24 Truman Moody MD Sail Maker Cardiology 02/01/19 09/16/24 Michael Quiros MD [address] [place] [address] Referring Physician Interventional Cardiology 09/17/24 Mohan Rico MD 4600 [facility] [address] [place] [address] Consulting Physician Pulmonary Disease 09/17/24 Betty Calvin PA 4700 [facility] [address] [place] [address] Physician Cattle Sorter Orthopedic Surgery 10/08/24 Sybil Alex, [facility] Pharmacist Pharmacy 10/29/24 11/15/24 Rivka Coello [facility] Pharmacist Pharmacy 11/15/24 11/23/24 Carol Sainz, RN Registered Nurse 12/02/24 Sybil Alex, [facility] Pharmacist Pharmacy 12/08/24 12/24/24 documented as of this encounter
--- OUTSIDE RECORDS SUMMARY | 2025-01-21 15:43 | XMS_ITS | Encounter Summary ---
Author Organization [facility] Facility Care Team Providers Care Recreation Teacher Name Role Phone Harry Jorgensen MD Primary Care Provider + rTuman Moody MD Unavailable [phone] Michael Quiros MD Unavailable [phone] Mohan Rico MD Unavailable [phone] Betty Calvin Unavailable [phone] Sybil Alex [facility] Unavailable Unavailable Vitaliy Alcazar MD Unavailable [phone] Rivka Coello [facility] Unavailable Unavailable Carol Sainz RN Unavailable Unavailable Sybil Alex [facility] Unavailable Unavailable Encounter Details Date Type Department Care Team (Latest Contact Info) Description 09/12/2016 Orders Only MMG CLINCONV ProviderKrzysztof MD [address] [place] [address] Social History Tobacco Use Types Packs/Day Years Used Date Smoking Tobacco: Never Alcohol Use Standard Drinks/Week Comments No 0 (1 standard drink = 0.6 oz pur e alcohol) Comments Unknown Sex and Gender Information Value Date Recorded Sex Assigned at Not on file Legal Sex Female 10:24 AM MAINTENANCE ENGINEER OIL FIELD Gender Identity Female 01/15/2021 9:27 PM CDT Sexual Orientation Straight 01/15/2021 9: 27 PM CDT documented as of this encounter Plan of Treatment Upcoming Encounters Date Type Department Care Team (Latest Contact Info) Description 01/27/2025 7:30 AM CDT Hospital Encounter [facility] Operating Room [address] [place] [address] [place] [address] [facility] [address], [place] [id number] 01/27/2025 7:30 AM CDT - 01/27/2025 9:00 AM CDT Surgery [facility] Operating Room [address] [place] [address] [place] [address] [facility] [address], [place] [id number] DEBRIDEMENT LEFT KNEE WOUND WITH WOUND VAC [...] documented as of this encounter Care Teams Recreation Teacher Relationship Specialty Start Date End Date Harry Jorgensen MD PCP - General 09/06/16 Vitaliy Alcazar MD [address] [facility] [address] [place] [address] PCP - Home Infusion Attending Infectious Diseases 11/10/24 Truman Moody MD Lead Pressman Cardiology 02/01/19 09/16/24 Michael Quiros MD [address] [place] [address] Referring Physician Interventional Cardiology 09/17/24 Mohan Rico MD [address] [facility] [address] [place] [address] Consulting Physician Pulmonary Disease 09/17/24 Betty Calvin PA [address] [facility] [address] [place] [address] Physician Typesetting Machine Tender Orthopedic Surgery 10/08/24 Sybil Alex, [facility] Pharmacist Pharmacy 10/29/24 11/15/24 Rivka Coello [facility] Pharmacist Pharmacy 11/15/24 11/23/24 Carol Sainz, RN Registered Nurse 12/02/24 Sybil Alex, [facility] Pharmacist Pharmacy 12/08/24 12/24/24 documented as of this encounter
--- OUTSIDE RECORDS SUMMARY | 2025-01-21 15:43 | XMS_ITS | Encounter Summary ---
Author Organization [facility] Facility Care Team Providers Care Bulb Tester Name Role Phone Harry Jorgensen MD Primary Care Provider + Truman Moody MD Unavailable [phone] Michael Quiros MD Unavailable [phone] Mohan Rico MD Unavailable [phone] Betty Calvin Unavailable [phone] Sybil Alex [facility] Unavailable Unavailable Vitaliy Alcazar MD Unavailable [phone] Rivka Coello [facility] Unavailable Unavailable Carol Sainz RN Unavailable Unavailable Sybil Alex [facility] Unavailable Unavailable Encounter Details Date Type Department Care Team (Latest Contact Info) Description 09/22/2017 Orders Only MMG CLINCONV ProviderKrzysztof MD [address] [place] [address] Social History Tobacco Use Types Packs/Day Years Used Date Smoking Tobacco: Never Alcohol Use Standard Drinks/Week Comments No 0 (1 standard drink = 0.6 oz pur e alcohol) Comments Unknown Sex and Gender Information Value Date Recorded Sex Assigned at Not on file Legal Sex Female 10:24 AM RN ADMISSION Gender Identity Female 01/15/2021 9:27 PM CDT Sexual Orientation Straight 01/15/2021 9: 27 PM CDT documented as of this encounter Plan of Treatment Upcoming Encounters Date Type Department Care Team (Latest Contact Info) Description 01/27/2025 7:30 AM CDT Hospital Encounter [facility] Operating Room [address] [place] [address] [place] [address] [facility] [address], [place] [id number] 01/27/2025 7:30 AM CDT - 01/27/2025 9:[address] [facility] Operating Room [id number] [place] [address] [place] [address] [facility] [address], [place] [id number] DEBRIDEMENT LEFT KNEE WOUND WITH WOUND VAC [...] documented as of this encounter Care Teams Bulb Tester Relationship Specialty Start Date End Date Harry Jorgensen MD PCP - General 09/06/16 Vitaliy Alcazar MD [address] [facility] [address] [place] [address] PCP - Home Infusion Attending Infectious Diseases 11/10/24 Truman Moody MD Straight Pin Making Machine Operator Cardiology 02/01/19 09/16/24 Michael Quiros MD [address] [place] [address] Referring Physician Interventional Cardiology 09/17/24 Mohan Rico MD [address] [facility] [address] [place] [address] Consulting Physician Pulmonary Disease 09/17/24 Betty Calvin PA [address] [facility] [address] [place] [address] Physician Bulk Mail Technician Orthopedic Surgery 10/08/24 Sybil Alex, [facility] Pharmacist Pharmacy 10/29/24 11/15/24 Rivka Coello [facility] Pharmacist Pharmacy 11/15/24 11/23/24 Carol Sainz, RN Registered Nurse 12/02/24 Sybil Alex, [facility] Pharmacist Pharmacy 12/08/24 12/24/24 documented as of this encounter
--- OUTSIDE RECORDS SUMMARY | 2025-01-21 15:43 | XMS_ITS | Encounter Summary ---
Author Organization [facility] Facility Care Team Providers Care Corporate Legal Assistant Name Role Phone Harry Jorgensen MD Primary Care Provider + Truman Moody MD Unavailable [phone] Michael Quiros MD Unavailable [phone] Mohan Rico MD Unavailable [phone] Betty Calvin Unavailable [phone] Sybil Alex [facility] Unavailable Unavailable Vitaliy Alcazar MD Unavailable +[phone] Rivka Coello [facility] Unavailable Unavailable Carol Sainz RN Unavailable Unavailable Sybil Alex [facility] Unavailable Unavailable Encounter Details Date Type Department Care Team (Latest Contact Info) Description 09/26/2016 Orders Only MMG CLINCONV ProviderKrzysztof MD [address] [place] [address] Social History Tobacco Use Types Packs/Day Years Used Date Smoking Tobacco: Never Alcohol Use Standard Drinks/Week Comments No 0 (1 standard drink = 0.6 oz pur e alcohol) Comments Unknown Sex and Gender Information Value Date Recorded Sex Assigned at Not on file Legal Sex Female 10:24 AM POULTRY DEBEAKER Gender Identity Female 01/15/2021 9:27 PM CDT Sexual Orientation Straight 01/15/2021 9: 27 PM CDT documented as of this encounter Plan of Treatment Upcoming Encounters Date Type Department Care Team (Latest Contact Info) Description 01/27/2025 7:30 AM CDT Hospital Encounter [facility] Operating Room [address] [place] [address] [place] [address] [facility] [address], [place] [id number] 01/27/2025 7:30 AM CDT - 01/27/2025 9:00 AM CDT Surgery [facility] Operating Room [address] [place] [address] [place] [address] [facility] [address], [place] [id number] DEBRIDEMENT LEFT KNEE WOUND WITH WOUND VAC [...] documented as of this encounter Care Teams Corporate Legal Assistant Relationship Specialty Start Date End Date Harry Jorgensen MD PCP - General 09/06/16 Vitaliy Alcazar MD [address] [facility] [address] [place] [address] PCP - Home Infusion Attending Infectious Diseases 11/10/24 Truman Moody MD Nurse Practical Cardiology 02/01/19 09/16/24 Michael Quiros MD [address] [place] [address] Referring Physician Interventional Cardiology 09/17/24 Mohan Rico MD [address] [facility] [address] [place] [address] Consulting Physician Pulmonary Disease 09/17/24 Betty Calvin PA [address] [facility] [address] [place] [address] Physician Vice President Financial Orthopedic Surgery 10/08/24 Sybil Alex, [facility] Pharmacist Pharmacy 10/29/24 11/15/24 Rivka Coello [facility] Pharmacist Pharmacy 11/15/24 11/23/24 Carol Sainz, RN Registered Nurse 12/02/24 Sybil Alex, [facility] Pharmacist Pharmacy 12/08/24 12/24/24 documented as of this encounter
--- OUTSIDE RECORDS SUMMARY | 2025-01-21 15:43 | XMS_ITS | Encounter Summary ---
Author Organization [facility] Facility Care Team Providers Care Plodding Operator Name Role Phone Harry Jorgensen MD Primary Care Provider + Truman Moody MD Unavailable [phone] Michael Quiros MD Unavailable [phone] Mohan Rico MD Unavailable [phone] Betty Calvin Unavailable [phone] Sybil Alex [facility] Unavailable Unavailable Vitaliy Alcazar MD Unavailable [phone] Rivka Coello [facility] Unavailable Unavailable Carol Sainz RN Unavailable Unavailable Sybil Alex [facility] Unavailable Unavailable Encounter Details Date Type Department Care Team (Latest Contact Info) Description 01/18/2018 Orders Only MMG CLINCONV ProviderKrzysztof MD [address] [place] [address] Social History Tobacco Use Types Packs/Day Years Used Date Smoking Tobacco: Never Alcohol Use Standard Drinks/Week Comments No 0 (1 standard drink = 0.6 oz pur e alcohol) Comments Unknown Sex and Gender Information Value Date Recorded Sex Assigned at Not on file Legal Sex Female 10:24 AM POT RELINER Gender Identity Female 01/15/2021 9:27 PM CDT Sexual Orientation Straight 01/15/2021 9: 27 PM CDT documented as of this encounter Plan of Treatment Upcoming Encounters Date Type Department Care Team (Latest Contact Info) Description 01/27/2025 7:30 AM CDT Hospital Encounter [facility] Operating Room [address] [place] [address] [place] [address] [facility] [address], [place] [id number] 01/27/2025 7:30 AM CDT - 01/27/2025 9:00 AM CDT Surgery [facility] Operating Room [address] [place] [address] [place] [address] [facility] [address], [place] [id number] DEBRIDEMENT LEFT KNEE WOUND WITH WOUND VAC [...] documented as of this encounter Care Teams Plodding Operator Relationship Specialty Start Date End Date Harry Jorgensen MD PCP - General 09/06/16 Vitaliy Alcazar MD [address] [facility] [address] [place] [address] PCP - Home Infusion Attending Infectious Diseases 11/10/24 Truman Moody MD Intake Assessor Cardiology 02/01/19 09/16/24 Michael Quiros MD [address] [place] [address] Referring Physician Interventional Cardiology 09/17/24 Mohan Rico MD [address] [facility] [address] [place] [address] Consulting Physician Pulmonary Disease 09/17/24 Betty Calvin PA [address] [facility] [address] [place] [address] Physician Mortuary Operations Manager Orthopedic Surgery 10/08/24 Sybil Alex, [facility] Pharmacist Pharmacy 10/29/24 11/15/24 Rivka Coello [facility] Pharmacist Pharmacy 11/15/24 11/23/24 Carol Sainz, RN Registered Nurse 12/02/24 Sybil Alex, [facility] Pharmacist Pharmacy 12/08/24 12/24/24 documented as of this encounter
--- OUTSIDE RECORDS SUMMARY | 2025-01-21 15:43 | XMS_ITS | Encounter Summary ---
Author Organization [facility] Care Team Providers Care Sand Wheeler Name Role Phone Harry Jorgensen MD Primary Care Provider + Truman Moody MD Unavailable [phone] Michael Quiros MD Unavailable [phone] Mohan Rico MD Unavailable [phone] Betty Calvin Unavailable [phone] Sybil Alex [facility] Unavailable Unavailable Vitaliy Alcazar MD Unavailable +[phone] Rivka Coello [facility] Unavailable Unavailable Carol Sainz RN Unavailable Unavailable Sybil Alex [facility] Unavailable Unavailable Encounter Details Date Type Department Care Team (Latest Contact Info) Description 07/16/2017 Orders Only MMG CLINCONV ProviderKrzysztof MD [address] [place] [address] Social History Tobacco Use Types Packs/Day Years Used Date Smoking Tobacco: Never Alcohol Use Standard Drinks/Week Comments No 0 (1 standard drink = 0.6 oz pur e alcohol) Comments Unknown Sex and Gender Information Value Date Recorded Sex Assigned at Not on file Legal Sex Female 10:24 AM FRESCO ARTIST Gender Identity Female 01/15/2021 9:27 PM CDT Sexual Orientation Straight 01/15/2021 9: 27 PM CDT documented as of this encounter Plan of Treatment Upcoming Encounters Date Type Department Care Team (Latest Contact Info) Description 01/27/2025 7:30 AM CDT Hospital Encounter [facility] Operating Room [address] [place] [address] [place] [address] [facility] [address], [place] [id number] 01/27/2025 7:30 AM CDT - 01/27/2025 9:00 AM CDT Surgery [facility] Operating Room [address] [place] [address] [place] [address] [facility] [address], [place] [id number] DEBRIDEMENT LEFT KNEE WOUND WITH WOUND VAC PLACEMENT Scheduled Procedures Name Priority Associated Diagnoses Date/Ti me DEBRIDEMENT WOUND Open wound of left knee, initial encounter Other complications of procedures, not elsewhere classified, initial encounter 01/27/2025 7:30 AM CDT documented as of this encounter Procedures Procedure Name Priority Date/Time Associated Diagnosis Comments SCAN - LABS 07/17/2017 12:00 AM FRESCO ARTIST documented in this encounter Results * SCAN - LABS (07/17/2017 12:00 AM FRESCO ARTIST) Narrative 07/17/2017 12:00 AM FRESCO ARTIST Ordered by an unspecified provider. us [...] documented as of this encounter Care Teams Sand Wheeler Relationship Specialty Start Date End Date Harry Jorgensen MD PCP - General 09/06/16 Vitaliy Alcazar MD [address] [facility] [address] [place] [address] PCP - Home Infusion Attending Infectious Diseases 11/10/24 Truman Moody MD Hospice Patient Care Secretary Cardiology 02/01/19 09/16/24 Michael Quiros MD [address] [place] [address] Referring Physician Interventional Cardiology 09/17/24 Mohan Rico MD 4600 [facility] [address] [place] [address] Consulting Physician Pulmonary Disease 09/17/24 Betty Calvin, PA [address] [facility] [address] [place] [address] Physician Pulling Unit Operator Orthopedic Surgery 10/08/24 Sybil Alex, [facility] Pharmacist Pharmacy 10/29/24 11/15/24 Rivka Coello, [facility] Pharmacist Pharmacy 11/15/24 11/23/24 Carol Sainz, RN Registered Nurse 12/02/24 Sybil Alex, [facility] Pharmacist Pharmacy 12/08/24 12/24/24 documented as of this encounter
--- OUTSIDE RECORDS SUMMARY | 2025-01-21 15:43 | XMS_ITS | Encounter Summary ---
Author Organization [facility] Care Team Providers Care Viscose Department Worker Name Role Phone Harry Jorgensen MD Primary Care Provider + Truman Moody MD Unavailable [phone] Michael Quiros MD Unavailable [phone] Mohan Rico MD Unavailable [phone] Betty Calvin Unavailable [phone] Sybil Alex [facility] Unavailable Unavailable Vitaliy Alcazar MD Unavailable [phone] Rivka Coello [facility] Unavailable Unavailable Carol Sainz RN Unavailable Unavailable Sybil Alex [facility] Unavailable Unavailable Encounter Details Date Type Department Care Team (Latest Contact Info) Description 01/17/2018 Orders Only MMG CLINCONV ProviderKrzysztof MD [address] [place] [address] Social History Tobacco Use Types Packs/Day Years Used Date Smoking Tobacco: Never Alcohol Use Standard Drinks/Week Comments No 0 (1 standard drink = 0.6 oz pur e alcohol) Comments Unknown Sex and Gender Information Value Date Recorded Sex Assigned at Not on file Legal Sex Female 10:24 AM FINANCIAL SERVICES PROFESSIONAL Gender Identity Female 01/15/2021 9:27 PM CDT Sexual Orientation Straight 01/15/2021 9: 27 PM CDT documented as of this encounter Plan of Treatment Upcoming Encounters Date Type Department Care Team (Latest Contact Info) Description 01/27/2025 7:30 AM CDT Hospital Encounter [facility] Operating Room [address] [place] [address] [place] [address] [facility] [address], [place] [id number] 01/27/2025 7:30 AM CDT - 01/27/2025 9:00 AM CDT Surgery [facility] Operating Room [address] [place] [address] [place] [address] [facility] [address], [place] [id number] DEBRIDEMENT LEFT KNEE WOUND WITH WOUND VAC [...] documented as of this encounter Care Teams Viscose Department Worker Relationship Specialty Start Date End Date Harry Jorgensen MD PCP - General 09/06/16 Vitaliy Alcazar MD [address] [facility] [address] [place] [address] PCP - Home Infusion Attending Infectious Diseases 11/10/24 Truman Moody MD Dietetics Teacher Cardiology 02/01/19 09/16/24 Michael Quiros MD [address] [place] [address] Referring Physician Interventional Cardiology 09/17/24 Mohan Rico MD [address] [facility] [address] [place] [address] Consulting Physician Pulmonary Disease 09/17/24 Betty Calvin PA [address] [facility] [address] [place] [address] Physician Tool And Die Maker Level Five Orthopedic Surgery 10/08/24 Sybil Alex, [facility] Pharmacist Pharmacy 10/29/24 11/15/24 Rivka Coello [facility] Pharmacist Pharmacy 11/15/24 11/23/24 Carol Sainz, RN Registered Nurse 12/02/24 Sybil Alex, [facility] Pharmacist Pharmacy 12/08/24 12/24/24 documented as of this encounter
--- OUTSIDE RECORDS SUMMARY | 2025-01-21 15:43 | XMS_ITS | Encounter Summary ---
Author Organization [facility] Care Team Providers Care Farm Facility Manager Name Role Phone Harry Jorgensen MD Primary Care Provider + Taqueria Sullivan MD Primary Care Provider Truman Moody MD Unavailable [phone] Michael Quiros MD Unavailable [phone] Mohan Rico MD Unavailable [phone] Betty Calvin Unavailable [phone] Sybil Alex [facility] Unavailable Unavailable Vitaliy Alcazar MD Unavailable [phone] Rivka Coello [facility] Unavailable Unavailable Carol Sainz RN Unavailable Unavailable Sybil Alex [facility] Unavailable Unavailable Encounter Details Date Type Department Care Team (Latest Contact Info) Description 09/05/2016 Orders Only MMG CLINCONV ProviderKrzysztof MD [address] [place] [address] Social History Tobacco Use Types Packs/Day Years Used Date Smoking Tobacco: Never Alcohol Use Standard Drinks/Week Comments No 0 (1 standard drink = 0.6 oz pur e alcohol) Comments Unknown Sex and Gender Information Value Date Recorded Sex Assigned at Not on file Legal Sex Female 10:24 AM AIX ADMINISTRATOR Gender Identity Female 01/15/2021 9:27 PM CDT Sexual Orientation Straight 01/15/2021 9: 27 PM CDT documented as of this encounter Plan of Treatment Upcoming Encounters Date Type Department Care Team (Latest Contact Info) Description 01/27/2025 7:30 AM CDT Hospital Encounter [facility] Operating Room [address] [place] [address] [place] [address] [facility] [address], [place] [id number] 01/27/2025 7:30 AM CDT - 01/27/2025 9:00 AM CDT Surgery [facility] Operating Room [address] [place] [address] [place] [address] [facility] [address], [place] [id number] DEBRIDEMENT LEFT KNEE WOUND WITH WOUND VAC [...] documented as of this encounter Care Teams Farm Facility Manager Relationship Specialty Start Date End Date Harry Jorgensen MD PCP - General 09/06/16 Taqueria Sullivan MD [address] [address] PCP - General 08/27/16 09/05/16 Vitaliy Alcazar MD [address] [facility] [address] [address] PCP - Home Infusion Attending Infectious Diseases 11/10/24 Truman Moody MD [address] [address] Delivery Tech Cardiology 02/01/19 09/16/24 Michael Quiros MD [address] [place] [address] Referring Physician Interventional Cardiology 09/17/24 Mohan Rico MD [address] [facility] [address] [place] [address] Consulting Physician Pulmonary Disease 09/17/24 Betty Calvin PA [address] [facility] [address] [place] [address] Physician Sales And Marketing Assistant Orthopedic Surgery 10/08/24 Sybil Alex, [facility] Pharmacist Pharmacy 10/29/24 11/15/24 Rivka Coello, [facility] Pharmacist Pharmacy 11/15/24 11/23/24 Carol Sainz, EKATERINA Registered Nurse 12/02/24 Sybil Alex, [facility] Pharmacist Pharmacy 12/08/24 12/24/24 documented as of this encounter
--- OUTSIDE RECORDS SUMMARY | 2025-01-21 15:43 | XMS_ITS | Encounter Summary ---
Author Organization [facility] Care Team Providers Care Receiving Barn Custodian Name Role Phone Harry Jorgensen MD Primary Care Provider + Truman Moody MD Unavailable [phone] Michael Quiros MD Unavailable [phone] Mohan Rico MD Unavailable [phone] Betty Calvin Unavailable [phone] Sybil Alex [facility] Unavailable Unavailable Vitaliy Alcazar MD Unavailable [phone] Rivka Coello [facility] Unavailable Unavailable Carol Sainz RN Unavailable Unavailable Sybil Alex [facility] Unavailable Unavailable Encounter Details Date Type Department Care Team (Latest Contact Info) Description 08/21/2017 Orders Only MMG CLINCONV ProviderKrzysztof MD [address] [place] [address] Social History Tobacco Use Types Packs/Day Years Used Date Smoking Tobacco: Never Alcohol Use Standard Drinks/Week Comments No 0 (1 standard drink = 0.6 oz pur e alcohol) Comments Unknown Sex and Gender Information Value Date Recorded Sex Assigned at Not on file Legal Sex Female 10:24 AM IT ANALYST Gender Identity Female 01/15/2021 9:27 PM CDT Sexual Orientation Straight 01/15/2021 9: 27 PM CDT documented as of this encounter Plan of Treatment Upcoming Encounters Date Type Department Care Team (Latest Contact Info) Description 01/27/2025 7:30 AM CDT Hospital Encounter [facility] Operating Room [address] [place] [address] [place] [address] [facility] [address], [place] [id number] 01/27/2025 7:30 AM CDT - 01/27/2025 9:00 AM CDT Surgery [facility] Operating Room [address] [place] [address] [place] [address] [facility] [address], [place] [id number] DEBRIDEMENT LEFT KNEE WOUND WITH WOUND VAC [...] documented as of this encounter Care Teams Receiving Barn Custodian Relationship Specialty Start Date End Date Harry Jorgensen MD PCP - General 09/06/16 Vitaliy Alcazar MD [address] [facility] [address] [place] [address] PCP - Home Infusion Attending Infectious Diseases 11/10/24 Truman Moody MD Self Contained Behavior Unit Teacher Cardiology 02/01/19 09/16/24 Michael Quiros MD [address] [place] [address] Referring Physician Interventional Cardiology 09/17/24 Mohan Rico MD [address] [facility] [address] [place] [address] Consulting Physician Pulmonary Disease 09/17/24 Betty Calvin PA [address] [facility] [address] [place] [address] Physician Vp Customer Development Orthopedic Surgery 10/08/24 Sybil Alex, [facility] Pharmacist Pharmacy 10/29/24 11/15/24 Rivka Coello [facility] Pharmacist Pharmacy 11/15/24 11/23/24 Carol Sainz, RN Registered Nurse 12/02/24 Sybil Alex, [facility] Pharmacist Pharmacy 12/08/24 12/24/24 documented as of this encounter
--- OUTSIDE RECORDS SUMMARY | 2025-01-21 15:43 | XMS_ITS | Encounter Summary ---
Author Organization [facility] Care Team Providers Care License Registration Examiner Name Role Phone Harry Jorgensen MD Primary Care Provider + Truman Moody MD Unavailable [phone] Michael Quiros MD Unavailable [phone] Mohan Rico MD Unavailable [phone] Betty Calvin Unavailable [phone] Sybil Alex [facility] Unavailable Unavailable Vitaliy Alcazar MD Unavailable [phone] Rivka Coello [facility] Unavailable Unavailable Carol Sainz RN Unavailable Unavailable Sybil Alex [facility] Unavailable Unavailable Encounter Details Date Type Department Care Team (Latest Contact Info) Description 07/30/2017 Orders Only MMG CLINCONV ProviderKrzysztof MD [address] [place] [address] Social History Tobacco Use Types Packs/Day Years Used Date Smoking Tobacco: Never Alcohol Use Standard Drinks/Week Comments No 0 (1 standard drink = 0.6 oz pur e alcohol) Comments Unknown Sex and Gender Information Value Date Recorded Sex Assigned at Not on file Legal Sex Female 10:24 AM SCHOOL CROSSING GUARD Gender Identity Female 01/15/2021 9:27 PM CDT Sexual Orientation Straight 01/15/2021 9: 27 PM CDT documented as of this encounter Plan of Treatment Upcoming Encounters Date Type Department Care Team (Latest Contact Info) Description 01/27/2025 7:30 AM CDT Hospital Encounter [facility] [place] [facility] Operating Room [address] [place] [address] [place] [address] [facility] [address], [place] [id number] 01/27/2025 7:30 AM CDT - 01/27/2025 9:00 AM CDT Surgery [facility] [place] [facility] Operating Room [address] [place] [address] [place] [address] [facility] [address], [place] [phone] DEBRIDEMENT LEFT KNEE WOUND WITH WOUND VAC PLACEMENT Scheduled Procedures Name Priority Associated Diagnoses Date/Ti me DEBRIDEMENT WOUND Open wound of left knee, initial encounter Other complications of procedures, not elsewhere classified, initial encounter 01/27/2025 7:30 AM CDT documented as of this encounter Procedures Procedure Name Priority Date/Time Associated Diagnosis Comments CARDIOLOGY REPORT 07/30/2017 12: 00 AM SCHOOL CROSSING GUARD documented in this encounter Results * CARDIOLOGY REPORT (07/30/2017 12:00 AM SCHOOL CROSSING GUARD) Anatomical Region Laterality Modality Other Narrative 07/30/2017 12:00 AM SCHOOL CROSSING GUARD Ordered by an unspecified provider. Historical Provider [...] documented as of this encounter Care Teams License Registration Examiner Relationship Specialty Start Date End Date Harry Jorgensen MD PCP - General 09/06/16 Vitaliy Alcazar MD [address] [facility] [address] [place] [address] PCP - Home Infusion Attending Infectious Diseases 11/10/24 Truman Moody MD Postal Support Employee Cardiology 02/01/19 09/16/24 Michael Quiros MD [address] [place] [address] Referring Physician Interventional Cardiology 09/17/24 Mohan Rico MD [address] [facility] [address] [place] [address] Consulting Physician Pulmonary Disease 09/17/24 Betty Calvin, LARRY [address] [facility] [address] [place] [address] Physician Community Support Specialist Orthopedic Surgery 10/08/24 Sybil Alex, [facility] Pharmacist Pharmacy 10/29/24 11/15/24 Rivka Coello, [facility] Pharmacist Pharmacy 11/15/24 11/23/24 Carol Sainz, EKATERINA Registered Nurse 12/02/24 Sybil Alex, [facility] Pharmacist Pharmacy 12/08/24 12/24/24 documented as of this encounter
--- OUTSIDE RECORDS SUMMARY | 2025-01-21 15:44 | XMS_ITS | Encounter Summary ---
Author Organization [facility] Facility Care Team Providers Care Publishing Specialist Name Role Phone Harry Jorgensen MD Primary Care Provider + Truman Moody MD Unavailable [phone] Michael Quiros MD Unavailable [phone] Mohan Rico MD Unavailable [phone] Betty Calvin Unavailable [phone] Sybil Alex [facility] Unavailable Unavailable Vitaliy Alcazar MD Unavailable [phone] Rivka Coello [facility] Unavailable Unavailable Carol Sainz RN Unavailable Unavailable Sybil Alex [facility] Unavailable Unavailable Encounter Details Date Type Department Care Team (Latest Contact Info) Description 03/26/2017 Orders Only MMG CLINCONV ProviderKrzysztof MD [address] [place] [address] Social History Tobacco Use Types Packs/Day Years Used Date Smoking Tobacco: Never Alcohol Use Standard Drinks/Week Comments No 0 (1 standard drink = 0.6 oz pur e alcohol) Comments Unknown Sex and Gender Information Value Date Recorded Sex Assigned at Not on file Legal Sex Female 10:24 AM RESIDENTIAL CASE MANAGER Gender Identity Female 01/15/2021 9:27 PM CDT Sexual Orientation Straight 01/15/2021 9: 27 PM CDT documented as of this encounter Plan of Treatment Upcoming Encounters Date Type Department Care Team (Latest Contact Info) Description 01/27/2025 7:30 AM CDT Hospital Encounter [facility] Operating Room [address] [place] [address] [place] [address] [facility] [address], [place] [id number] 01/27/2025 7:30 AM CDT - 01/27/2025 9:00 AM CDT Surgery [facility] Operating Room [address] [place] [address] [place] [address] [facility] [address], [place] [id number] DEBRIDEMENT LEFT KNEE WOUND WITH WOUND VAC [...] documented as of this encounter Care Teams Publishing Specialist Relationship Specialty Start Date End Date Harry Jorgensen MD PCP - General 09/06/16 Vitaliy Alcazar MD [address] [facility] [address] [place] [address] PCP - Home Infusion Attending Infectious Diseases 11/10/24 Truman Moody MD Director Of Customer Acquisition Cardiology 02/01/19 09/16/24 Michael Quiros MD [address] [place] [address] Referring Physician Interventional Cardiology 09/17/24 Mohan Rico MD [address] [facility] [address] [place] [address] Consulting Physician Pulmonary Disease 09/17/24 Betty Calvin PA [address] [facility] [place] [place] [address] Physician Supervisor Data Processing Orthopedic Surgery 10/08/24 Sybil Alex, [facility] Pharmacist Pharmacy 10/29/24 11/15/24 Rivka Coello, [facility] Pharmacist Pharmacy 11/15/24 11/23/24 Carol Sainz, RN Registered Nurse 12/02/24 Sybil Alex, [facility] Pharmacist Pharmacy 12/08/24 12/24/24 documented as of this encounter
--- OUTSIDE RECORDS SUMMARY | 2025-01-21 15:44 | XMS_ITS | Encounter Summary ---
Author Organization [facility] Facility Care Team Providers Care Carton Machine Operator Name Role Phone Harry Jorgensen MD Primary Care Provider + Truman Moody MD Unavailable [phone] Michael Quiros MD Unavailable [phone] Mohan Rico MD Unavailable [phone] Betty Calvin Unavailable [phone] Sybil Alex [facility] Unavailable Unavailable Vitaliy Alcazar MD Unavailable [phone] Rivka Coello [facility] Unavailable Unavailable Carol Sainz RN Unavailable Unavailable Sybil Alex [facility] Unavailable Unavailable Encounter Details Date Type Department Care Team (Latest Contact Info) Description 10/16/2016 Orders Only MMG CLINCONV ProviderKrzysztof MD [address] [place] [address] Social History Tobacco Use Types Packs/Day Years Used Date Smoking Tobacco: Never Alcohol Use Standard Drinks/Week Comments No 0 (1 standard drink = 0.6 oz pur e alcohol) Comments Unknown Sex and Gender Information Value Date Recorded Sex Assigned at Not on file Legal Sex Female 10:24 AM CLUTCH OPERATOR Gender Identity Female 01/15/2021 9:27 PM CDT Sexual Orientation Straight 01/15/2021 9: 27 PM CDT documented as of this encounter Plan of Treatment Upcoming Encounters Date Type Department Care Team (Latest Contact Info) Description 01/27/2025 7:30 AM CDT Hospital Encounter [facility] Operating Room [address] [place] [address] [place] [address] [facility] [address], [place] [id number] 01/27/2025 7:30 AM CDT - 01/27/2025 9:00 AM CDT Surgery [facility] Operating Room [address] [place] [address] [place] [address] [facility] [address], [place] [id number] DEBRIDEMENT LEFT KNEE WOUND WITH WOUND VAC [...] documented as of this encounter Care Teams Carton Machine Operator Relationship Specialty Start Date End Date Harry Jorgensen MD PCP - General 09/06/16 Vitaliy Alcazar MD [address] [facility] [address] [place] [address] PCP - Home Infusion Attending Infectious Diseases 11/10/24 Truman Moody MD Police Clerk Cardiology 02/01/19 09/16/24 Michael Quiros MD [address] [place] [address] Referring Physician Interventional Cardiology 09/17/24 Mohan Rico MD [address] [facility] [address] [place] [address] Consulting Physician Pulmonary Disease 09/17/24 Betty Calvin PA [address] [facility] [address] [place] [address] Physician Child Care Sitter Orthopedic Surgery 10/08/24 Sybil Alex, [facility] Pharmacist Pharmacy 10/29/24 11/15/24 Rivka Coello [facility] Pharmacist Pharmacy 11/15/24 11/23/24 Carol Sainz, RN Registered Nurse 12/02/24 Sybil Alex, [facility] Pharmacist Pharmacy 12/08/24 12/24/24 documented as of this encounter
--- OUTSIDE RECORDS SUMMARY | 2025-01-21 15:44 | XMS_ITS | Encounter Summary ---
Author Organization [facility] Facility Care Team Providers Care Senior Industrial Engineer Name Role Phone Harry Jorgensen MD Primary Care Provider + Taqueria Sullivan MD Primary Care Provider [phone] Harry Jorgensen MD Primary Care Provider + Truman Moody MD Unavailable [phone] Michael Quiros MD Unavailable [phone] Mohan Rico MD Unavailable +[phone] Betty Calvin Unavailable [phone] Sybil [facility] Unavailable Unavailable Vitaliy Alcazar MD Unavailable [phone] Rivka Coello [facility] Unavailable Unavailable Carol Sainz RN Unavailable Unavailable [facility] Unavailable Unavailable Encounter Details Date Type Department Care Team (Latest Contact Info) Description 01/01/2016 Orders Only [facility] CLINCONV ProviderKrzysztof MD [address] [place] [address] Social History Tobacco Use Types Packs/Day Years Used Date Smoking Tobacco: Never Alcohol Use Standard Drinks/Week Comments No 0 (1 standard drink = 0.6 oz pur e alcohol) Comments Unknown Sex and Gender Information Value Date Recorded Sex Assigned at Not on file Legal Sex Female 10:24 AM OPERATIONAL RISK ANALYST Gender Identity Female 01/15/2021 9:27 PM CDT Sexual Orientation Straight 01/15/2021 9: 27 PM CDT documented as of this encounter Plan of Treatment Upcoming Encounters Date Type Department Care Team (Latest Contact Info) Description 01/27/2025 7:30 AM CDT Hospital Encounter [facility] Operating Room [id number] [place] [address] [place] [address] [facility] [address] [address] 01/27/2025 7:30 AM CDT - 01/27/2025 9:00 AM CDT Surgery [facility] Operating Room [address] [place] [address] [place] [address] [facility] [address], [place] [id number] DEBRIDEMENT LEFT KNEE WOUND WITH WOUND VAC [...] documented as of this encounter Care Teams Senior Industrial Engineer Relationship Specialty Start Date End Date Harry Jorgensen MD PCP - General 09/06/16 Taqueria Sullivan MD [address] [address] PCP - General 08/27/16 09/05/16 Harry Jorgensen MD PCP - General 04/21/14 08/26/16 Vitaliy Alcazar MD [address] [facility] [address] [place] [address] [place] [address] PCP - Home Infusion Attending Infectious Diseases 11/10/24 Truman Moody MD [address] [address] Spinner Open End Cardiology 02/01/19 09/16/24 Michael Quiros MD [address] [place] [address] Referring Physician Interventional Cardiology 09/17/24 Mohan Rico MD [address] [facility] [address] [place] [address] [place] [address] Consulting Physician Pulmonary Disease 09/17/24 Betty Calvin PA [address] [facility] [address] [place] [address] [place] [address] Physician Colorist Orthopedic Surgery 10/08/24 Sybil Alex, [facility] Pharmacist Pharmacy 10/29/24 11/15/24 Rivka Coello, [facility] Pharmacist Pharmacy 11/15/24 11/23/24 Carol Sainz, RN Registered Nurse 12/02/24 Sybil Alex, [facility] Pharmacist Pharmacy 12/08/24 12/24/24 documented as of this encounter
--- OUTSIDE RECORDS SUMMARY | 2025-01-21 15:44 | XMS_ITS | Encounter Summary ---
Author Organization [facility] Facility Care Team Providers Care Technology Training Associate Name Role Phone Harry Jorgensen MD Primary Care Provider + Truman Moody MD Unavailable [phone] Michael Quiros MD Unavailable [phone] Mohan Rico MD Unavailable [phone] Betty Calvin Unavailable [phone] Sybil Alex [facility] Unavailable Unavailable Vitaliy Alcazar MD Unavailable +[phone] Rivka Coello [facility] Unavailable Unavailable Carol Sainz RN Unavailable Unavailable Sybil Alex [facility] Unavailable Unavailable Encounter Details Date Type Department Care Team (Latest Contact Info) Description 02/20/2017 Orders Only [facility]G CLINCONV ProviderKrzysztof MD [address] [place] [address] Social History Tobacco Use Types Packs/Day Years Used Date Smoking Tobacco: Never Alcohol Use Standard Drinks/Week Comments No 0 (1 standard drink = 0.6 oz pur e alcohol) Comments Unknown Sex and Gender Information Value Date Recorded Sex Assigned at Not on file Legal Sex Female 10:24 AM PLANT ATTENDANT Gender Identity Female 01/15/2021 9:27 PM CDT Sexual Orientation Straight 01/15/2021 9: 27 PM CDT documented as of this encounter Plan of Treatment Upcoming Encounters Date Type Department Care Team (Latest Contact Info) Description 01/27/2025 7:30 AM CDT Hospital Encounter [facility] Operating Room [address] [place] [address] [place] [address] [facility] [address], [place] [id number] 01/27/2025 7:30 AM CDT - 01/27/2025 9:00 AM CDT Surgery [facility] Operating Room [address] [place] [address] [place] [address] [facility] [address], [place] [id number] DEBRIDEMENT LEFT KNEE WOUND WITH WOUND VAC [...] as of this encounter Care Teams Technology Training Associate Relationship Specialty Start Date End Date Harry Jorgensen MD PCP - General 09/06/16 Vitaliy Alcazar MD [address] [facility] [address] [place] [address] [place] [address] PCP - Home Infusion Attending Infectious Diseases 11/10/24 Truman Moody MD Agent Contract Clerk Cardiology 02/01/19 09/16/24 Michael Quiros MD [address] [place] [address] Referring Physician Interventional Cardiology 09/17/24 Mohan Rico MD [address] [facility] [address] [place] [address] [place] [address] Consulting Physician Pulmonary Disease 09/17/24 Betty Calvin PA [address] [facility] [address] [place] [address] [place] [address] Physician Tile Layer Drainage Orthopedic Surgery 10/08/24 Sybil Alex, [facility] Pharmacist Pharmacy 10/29/24 11/15/24 Rivka Coello [facility] Pharmacist Pharmacy 11/15/24 11/23/24 Carol Sainz, RN Registered Nurse 12/02/24 Sybil Alex, [facility] Pharmacist Pharmacy 12/08/24 12/24/24 documented as of this encounter
--- OUTSIDE RECORDS SUMMARY | 2025-01-21 15:44 | XMS_ITS | Encounter Summary ---
Author Organization [facility] Facility Care Team Providers Care Crust Sorter Name Role Phone Harry Jorgensen MD Primary Care Provider + Truman Moody MD Unavailable [phone] Michael Quiros MD Unavailable [phone] Mohan Rico MD Unavailable [phone] Betty Calvin Unavailable [phone] Sybil Alex [facility] Unavailable Unavailable Vitaliy Alcazar MD Unavailable [phone] Rivka Coello [facility] Unavailable Unavailable Carol Sainz RN Unavailable Unavailable Sybil Alex [facility] Unavailable Unavailable Encounter Details Date Type Department Care Team (Latest Contact Info) Description 02/05/2017 Orders Only [facility]G CLINCONV ProviderKrzysztof MD [address] [place] [address] Social History Tobacco Use Types Packs/Day Years Used Date Smoking Tobacco: Never Alcohol Use Standard Drinks/Week Comments No 0 (1 standard drink = 0.6 oz pur e alcohol) Comments Unknown Sex and Gender Information Value Date Recorded Sex Assigned at Not on file Legal Sex Female 10:24 AM NEWS CAMERA PERSON Gender Identity Female 01/15/2021 9:27 PM CDT Sexual Orientation Straight 01/15/2021 9: 27 PM CDT documented as of this encounter Plan of Treatment Upcoming Encounters Date Type Department Care Team (Latest Contact Info) Description 01/27/2025 7:30 AM CDT Hospital Encounter [facility] Operating Room [address] [place] [address] [place] [address] [facility] [address], [place] [id number] 01/27/2025 7:30 AM CDT - 01/27/2025 9:00 AM CDT Surgery [facility] Operating Room [address] [place] [address] [place] [address] [facility] [address], [place] [phone] DEBRIDEMENT LEFT KNEE WOUND WITH WOUND VAC [...] documented as of this encounter Care Teams Crust Sorter Relationship Specialty Start Date End Date Harry Jorgensen MD PCP - General 09/06/16 Vitaliy Alcazar MD [address] [facility] [address] [place] [place] [address] PCP - Home Infusion Attending Infectious Diseases 11/10/24 Truman Moody MD Manager Target Cardiology 02/01/19 09/16/24 Michael Quiros MD [address] [place] [address] Referring Physician Interventional Cardiology 09/17/24 Mohan Rico MD [address] [facility] [address] [place] [address] [place] [address] Consulting Physician Pulmonary Disease 09/17/24 Betty Calvin PA [address] [facility] [address] [place] [place] [address] Physician Manager Heavy Equipment Orthopedic Surgery 10/08/24 Sybil Alex, [facility] Pharmacist Pharmacy 10/29/24 11/15/24 Rivka Coello [facility] Pharmacist Pharmacy 11/15/24 11/23/24 Carol Sainz, RN Registered Nurse 12/02/24 Sybil Alex, [facility] Pharmacist Pharmacy 12/08/24 12/24/24 documented as of this encounter
--- OUTSIDE RECORDS SUMMARY | 2025-01-21 15:44 | XMS_ITS | Encounter Summary ---
Author Organization [facility] Facility Care Team Providers Care Armament Aircraft Mechanic Name Role Phone Harry Jorgensen MD Primary Care Provider + Taqueria [place] MD Primary Care Provider [phone] Harry Jorgensen MD Primary Care Provider + Truman Moody MD Unavailable [phone] Michael Quiros MD Unavailable [phone] Mohan Rico MD Unavailable [phone] Betty Calvin Unavailable [phone] Sybil Alex [facility] Unavailable Unavailable Vitaliy Alcazar MD Unavailable [phone] Rivka Coello [facility] Unavailable Unavailable Carol Sainz RN Unavailable Unavailable Sybil Alex [facility] Unavailable Unavailable Encounter Details Date Type Department Care Team (Latest Contact Info) Description 12/07/2015 Orders Only MMG CLINCONV ProviderKrzysztof MD [address] [place] [address] Social History Tobacco Use Types Packs/Day Years Used Date Smoking Tobacco: Never Alcohol Use Standard Drinks/Week Comments No 0 (1 standard drink = 0.6 oz pur e alcohol) Comments Unknown Sex and Gender Information Value Date Recorded Sex Assigned at Not on file Legal Sex Female 10:24 AM CORE INSERTER Gender Identity Female 01/15/2021 9:27 PM CDT Sexual Orientation Straight 01/15/2021 9: 27 PM CDT documented as of this encounter Plan of Treatment Upcoming Encounters Date Type Department Care Team (Latest Contact Info) Description 01/27/2025 7:30 AM CDT Hospital Encounter [facility] Operating Room [address] [place] [address] [place] [address] [facility] [address], [place] [address] 01/27/2025 7:30 AM CDT - 01/27/2025 9:00 AM CDT Surgery [facility] Operating Room [address] [place] [address] [place] [address] [facility] [address], [place] [id number] DEBRIDEMENT LEFT KNEE WOUND WITH WOUND VAC [...] documented as of this encounter Care Teams Armament Aircraft Mechanic Relationship Specialty Start Date End Date Harry Jorgensen MD PCP - General 09/06/16 Taqueria [place] MD [address] [address] PCP - General 08/27/16 09/05/16 Harry Jorgensen MD PCP - General 04/21/14 08/26/16 Vitaliy Alcazar MD [address] [facility] [address] [place] [place] [address] PCP - Home Infusion Attending Infectious Diseases 11/10/24 Truman Moody MD [address] [address] Wood Craftsman Cardiology 02/01/19 09/16/24 Michael Quiros MD [address] [place] [address] Referring Physician Interventional Cardiology 09/17/24 Mohan Rico MD [address] [facility] [address] [place] [address] Consulting Physician Pulmonary Disease 09/17/24 Betty Calvin PA [address] [facility] [address] [place] [place] [address] Physician Zigzag Topstitcher Orthopedic Surgery 10/08/24 Sybil Alex, [facility] Pharmacist Pharmacy 10/29/24 11/15/24 Rivka Coello, [facility] Pharmacist Pharmacy 11/15/24 11/23/24 Carol Sainz, RN Registered Nurse 12/02/24 Sybil Alex, [facility] Pharmacist Pharmacy 12/08/24 12/24/24 documented as of this encounter
--- OUTSIDE RECORDS SUMMARY | 2025-01-21 15:44 | XMS_ITS | Encounter Summary ---
Author Organization [facility] Facility Care Team Providers Care Lab Intern Name Role Phone Harry Jorgensen MD Primary Care Provider + Truman Moody MD Unavailable [phone] Michael Quiros MD Unavailable [phone] Mohan Rico MD Unavailable [phone] Betty Calvin Unavailable [phone] [facility] Unavailable Unavailable Vitaliy Alcazar MD Unavailable [phone] [facility] Unavailable Unavailable Carol Sainz RN Unavailable Unavailable Sybil Alex 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 Gender Identity Female 01/15/2021 9:27 PM CDT Sexual Orientation Straight 01/15/2021 9: 27 PM CDT documented as of this encounter Plan of Treatment Upcoming Encounters Date Type Department Care Team (Latest Contact Info) Description 01/27/2025 7:30 AM CDT Hospital Encounter [facility] Operating Room [address] [place] [address] [place] [address] [facility] [address], [place] [phone] 01/27/2025 7:30 AM CDT - 01/27/2025 9:00 AM CDT Surgery [facility] Operating Room [address] [place] [address] [place] [address] [facility] [address], [place] [phone] DEBRIDEMENT LEFT KNEE WOUND WITH WOUND VAC [...] documented as of this encounter Care Teams Lab Intern Relationship Specialty Start Date End Date Harry Jorgensen MD PCP - General 09/06/16 Vitaliy Alcazar MD [address] [facility] [address] [place] [address] [place] [address] PCP - Home Infusion Attending Infectious Diseases 11/10/24 Truman Moody MD Monogram Technician Cardiology 02/01/19 09/16/24 Michael Quiros MD [address] [place] [address] Referring Physician Interventional Cardiology 09/17/24 Mohan Rico MD [address] [facility] [address] [place] [address] [place] [address] Consulting Physician Pulmonary Disease 09/17/24 Betty Calvin PA [address] [facility] [address] [place] [address] [place] [address] Physician Press Brake Operator Orthopedic Surgery 10/08/24 Sybil Alex, [facility] Pharmacist Pharmacy 10/29/24 11/15/[address] [facility] Pharmacist Pharmacy 11/15/24 11/23/24 Carol Sainz, RN Registered Nurse 12/02/24 Sybil Alex, [facility] Pharmacist Pharmacy 12/08/24 12/24/24 documented as of this encounter
--- OUTSIDE RECORDS SUMMARY | 2025-01-21 15:44 | XMS_ITS | Encounter Summary ---
Author Organization [facility] Facility Care Team Providers Care Feed Crusher Operator Name Role Phone Harry Jorgensen MD Primary Care Provider + Truman Moody MD Unavailable [phone] Michael Quiros MD Unavailable [phone] Mohan Rico MD Unavailable [phone] Betty Calvin Unavailable [phone] Sybil Alex [facility] Unavailable Unavailable Vitaliy Alcazar MD Unavailable [phone] Rivka Coello [facility] Unavailable Unavailable Carol Sainz RN Unavailable Unavailable Sybil Alex [facility] Unavailable Unavailable Encounter Details Date Type Department Care Team (Latest Contact Info) Description 05/05/2017 Orders Only MMG CLINCONV ProviderKrzysztof MD [address] [place] [address] Social History Tobacco Use Types Packs/Day Years Used Date Smoking Tobacco: Never Alcohol Use Standard Drinks/Week Comments No 0 (1 standard drink = 0.6 oz pur e alcohol) Comments Unknown Sex and Gender Information Value Date Recorded Sex Assigned at Not on file Legal Sex Female 10:24 AM SUPERVISOR COMPRESSED YEAST Gender Identity Female 01/15/2021 9:27 PM CDT Sexual Orientation Straight 01/15/2021 9: 27 PM CDT documented as of this encounter Plan of Treatment Upcoming Encounters Date Type Department Care Team (Latest Contact Info) Description 01/27/2025 7:30 AM CDT Hospital Encounter [facility] Operating Room [address] [place] [address] [place] [address] [facility] [address], [place] [phone] 01/27/2025 7:30 AM CDT - 01/27/2025 9:00 AM CDT Surgery [facility] Operating Room [address] [place] [address] [place] [address] [facility] [address], [place] [id number] DEBRIDEMENT LEFT KNEE WOUND WITH WOUND VAC PLACEMENT Scheduled Procedures Name Priority Associated Diagnoses Date/Ti me DEBRIDEMENT WOUND Open wound of left knee, initial encounter Other complications of procedures, not elsewhere classified, initial encounter 01/27/2025 7:30 AM CDT documented as of this encounter Procedures Procedure Name Priority Date/Time Associated Diagnosis Comments SCAN - LABS 05/05/2017 12:00 AM SUPERVISOR COMPRESSED YEAST documented in this encounter Results * SCAN - LABS (05/05/2017 12:00 AM SUPERVISOR COMPRESSED YEAST) Narrative 05/05/2017 12:00 AM SUPERVISOR COMPRESSED YEAST Ordered by an unspecified provider. us Historical [...] documented as of this encounter Care Teams Feed Crusher Operator Relationship Specialty Start Date End Date Harry Jorgensen MD PCP - General 09/06/16 Vitaliy Alcazar MD [address] [facility] [address] [place] [address] [place] [address] PCP - Home Infusion Attending Infectious Diseases 11/10/24 Truman Moody MD Turf Farmer Cardiology 02/01/19 09/16/24 Michael Quiros MD [address] [place] [address] Referring Physician Interventional Cardiology 09/17/24 Mohan Rico MD [address] [facility] [address] [place] [address] [place] [address] Consulting Physician Pulmonary Disease 09/17/24 Betty Calvin, PA [address] [facility] [address] [place] [address] [place] [address] Physician Maritime Guard Orthopedic Surgery 10/08/24 Sybil Alex, [facility] Pharmacist Pharmacy 10/29/24 11/15/24 Rivka Coello, [facility] Pharmacist Pharmacy 11/15/24 11/23/24 Carol Sainz, RN Registered Nurse 12/02/24 Sybil Alex, [facility] Pharmacist Pharmacy 12/08/24 12/24/24 documented as of this encounter
--- OUTSIDE RECORDS SUMMARY | 2025-01-21 15:44 | XMS_ITS | Encounter Summary ---
Author Organization [facility] Facility Care Team Providers Care Power Plant Mechanic Name Role Phone Harry Jorgensen MD Primary Care Provider + Taqueria [place] MD Primary Care Provider [phone] Harry Jorgensen MD Primary Care Provider + Truman Moody MD Unavailable [phone] Michael Quiros MD Unavailable [phone] Mohan Rico MD Unavailable [phone] Betty Calvin Unavailable [phone] Sybil Alex [facility] Unavailable Unavailable Vitaliy Alcazar MD Unavailable [phone] Rivka Coello [facility] Unavailable Unavailable Carol Sainz RN Unavailable Unavailable Sybil Alex [facility] Unavailable Unavailable Encounter Details Date Type Department Care Team (Latest Contact Info) Description 12/30/2015 Orders Only MMG CLINCONV ProviderKrzysztof MD [address] [place] [address] Social History Tobacco Use Types Packs/Day Years Used Date Smoking Tobacco: Never Alcohol Use Standard Drinks/Week Comments No 0 (1 standard drink = 0.6 oz pur e alcohol) Comments Unknown Sex and Gender Information Value Date Recorded Sex Assigned at Not on file Legal Sex Female 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 Gender Identity Female 01/15/2021 9:27 PM CDT Sexual Orientation Straight 01/15/2021 9: 27 PM CDT documented as of this encounter Plan of Treatment Upcoming Encounters Date Type Department Care Team (Latest Contact Info) Description 01/27/2025 7:30 AM CDT Hospital Encounter [facility] Operating Room [address] [place] [address] [place] [address] [facility] [address] [address] 01/27/2025 7:30 AM CDT - 01/27/2025 9:00 AM CDT Surgery [facility] Operating Room [address] [place] [address] [place] [address] [facility] [address], [place] [id number] DEBRIDEMENT LEFT KNEE WOUND WITH WOUND VAC [...] documented as of this encounter Care Teams Power Plant Mechanic Relationship Specialty Start Date End Date Harry Jorgensen MD PCP - General 09/06/16 Taqueria [place] MD [address] [address] PCP - General 08/27/16 09/05/16 Harry Jorgensen MD PCP - General 04/21/14 08/26/16 Vitaliy Alcazar MD [address] [facility] [address] [place] [address] [place] [address] PCP - Home Infusion Attending Infectious Diseases 11/10/24 Truman Moody MD [address] [address] Maintenance Aide Cardiology 02/01/19 09/16/24 Michael Quiros MD [address] [place] [address] Referring Physician Interventional Cardiology 09/17/24 Mohan Rico MD [address] [facility] [address] [place] [address] [place] [address] Consulting Physician Pulmonary Disease 09/17/24 Betty Calvin PA [address] [facility] [address] [place] [place] [address] Physician Chain Carrier Orthopedic Surgery 10/08/24 Sybil Alex, [facility] Pharmacist Pharmacy 10/29/24 11/15/24 Rivka Coello, [facility] Pharmacist Pharmacy 11/15/24 11/23/24 Carol Sainz, RN Registered Nurse 12/02/24 Sybil Alex, [facility] Pharmacist Pharmacy 12/08/24 12/24/24 documented as of this encounter
--- OUTSIDE RECORDS SUMMARY | 2025-01-21 15:44 | XMS_ITS | Encounter Summary ---
Author Organization [facility] Facility Care Team Providers Care Document Control Assistant Name Role Phone Harry Jorgensen MD Primary Care Provider + Truman Moody MD Unavailable [phone] Michael Quiros MD Unavailable [phone] Mohan Rico MD Unavailable [phone] Betty Calvin Unavailable [phone] Sybil Alex [facility] Unavailable Unavailable Vitaliy Alcazar MD Unavailable [phone] Rivka Coello [facility] Unavailable Unavailable Carol Sainz RN Unavailable Unavailable Sybil Alex [facility] Unavailable Unavailable Encounter Details Date Type Department Care Team (Latest Contact Info) Description 10/15/2016 Orders Only MMG CLINCONV ProviderKrzsyztof MD [address] [place] [address] Social History Tobacco Use Types Packs/Day Years Used Date Smoking Tobacco: Never Alcohol Use Standard Drinks/Week Comments No 0 (1 standard drink = 0.6 oz pur e alcohol) Comments Unknown Sex and Gender Information Value Date Recorded Sex Assigned at Not on file Legal Sex Female 10:24 AM ROBOTIC MACHINE 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 Gender Identity Female 01/15/2021 9:27 PM CDT Sexual Orientation Straight 01/15/2021 9: 27 PM CDT documented as of this encounter Plan of Treatment Upcoming Encounters Date Type Department Care Team (Latest Contact Info) Description 01/27/2025 7:30 AM CDT Hospital Encounter [facility] Operating Room [address] [place] [address] [place] [address] [facility] [address], [place] [id number] 01/27/2025 7:30 AM CDT - 01/27/2025 9:00 AM CDT Surgery [facility] Operating Room [id number] [place] [address] [place] [address] [facility] [place], [place] [id number] DEBRIDEMENT LEFT KNEE WOUND WITH WOUND VAC [...] as of this encounter Care Teams Document Control Assistant Relationship Specialty Start Date End Date Harry Jorgensen MD PCP - General 09/06/16 Vitaliy Alcazar MD [address] [facility] [address] [place] [address] PCP - Home Infusion Attending Infectious Diseases 11/10/24 Truman Moody MD Applications Manager Cardiology 02/01/19 09/16/24 Michael Quiros MD [address] [place] [address] Referring Physician Interventional Cardiology 09/17/24 Mohan Rico MD [address] [facility] [address] [place] [address] Consulting Physician Pulmonary Disease 09/17/24 Betty Calvin PA [address] [facility] [address] [place] [place] [address] Physician Transfer Worker Orthopedic Surgery 10/08/24 Sybil Alex, [facility] Pharmacist Pharmacy 10/29/24 11/15/24 Rivka Coello [facility] Pharmacist Pharmacy 11/15/24 11/23/24 Carol Sainz, RN Registered Nurse 12/02/24 Sybil Alex, [facility] Pharmacist Pharmacy 12/08/24 12/24/24 documented as of this encounter
--- OUTSIDE RECORDS SUMMARY | 2025-01-21 15:44 | XMS_ITS | Encounter Summary ---
Author Organization [facility] Facility Care Team Providers Care Ux Design Manager Name Role Phone Harry Jorgensen MD Primary Care Provider + Truman Moody MD Unavailable [phone] Michael Quiros MD Unavailable [phone] Mohan Rico MD Unavailable [phone] Betty Calvin Unavailable [phone] Sybil Alex [facility] Unavailable Unavailable Vitaliy Alcazar MD Unavailable [phone] Rivka Coello [facility] Unavailable Unavailable Carol Sainz RN Unavailable Unavailable Sybil Alex [facility] Unavailable Unavailable Encounter Details Date Type Department Care Team (Latest Contact Info) Description 11/26/2016 Orders Only MMG CLINCONV ProviderKrzysztof MD [address] [place] [address] Social History Tobacco Use Types Packs/Day Years Used Date Smoking Tobacco: Never Alcohol Use Standard Drinks/Week Comments No 0 (1 standard drink = 0.6 oz pur e alcohol) Comments Unknown Sex and Gender Information Value Date Recorded Sex Assigned at Not on file Legal Sex Female 10:24 AM SOLUTION DIRECTOR Gender Identity Female 01/15/2021 9:27 PM CDT Sexual Orientation Straight 01/15/2021 9: 27 PM CDT documented as of this encounter Plan of Treatment Upcoming Encounters Date Type Department Care Team (Latest Contact Info) Description 01/27/2025 7:30 AM CDT Hospital Encounter [facility] Operating Room [address] [place] [address] [place] [address] [facility] [address], [place] [id number] 01/27/2025 7:30 AM CDT - 01/27/2025 9:[address] [facility] Operating Room [id number] [place] [address] [place] [address] [facility] [address], [place] [id number] DEBRIDEMENT LEFT KNEE WOUND WITH WOUND VAC [...] documented as of this encounter Care Teams Ux Design Manager Relationship Specialty Start Date End Date Harry Jorgensen MD PCP - General 09/06/16 Vitaliy Alcazar MD [address] [facility] [address] [place] [address] PCP - Home Infusion Attending Infectious Diseases 11/10/24 Truman Moody MD Business Operations Analyst Cardiology 02/01/19 09/16/24 Michael Quiros MD [address] [place] [address] Referring Physician Interventional Cardiology 09/17/24 Mohan Rico MD [address] [facility] [address] [place] [address] Consulting Physician Pulmonary Disease 09/17/24 Betty Calvin PA [address] [facility] [address] [place] [place] [address] Physician Yard Motor Operator Orthopedic Surgery 10/08/24 Sybil Alex, [facility] Pharmacist Pharmacy 10/29/24 11/15/24 Rivka Coello [facility] Pharmacist Pharmacy 11/15/24 11/23/24 Carol Sainz, RN Registered Nurse 12/02/24 Sybil Alex, [facility] Pharmacist Pharmacy 12/08/24 12/24/24 documented as of this encounter
--- OUTSIDE RECORDS SUMMARY | 2025-01-21 15:44 | XMS_ITS | Encounter Summary ---
Author Organization [facility] Facility Care Team Providers Care Chief Engineer Production Name Role Phone Harry Jorgensen MD Primary Care Provider + Truman Moody MD Unavailable [phone] Michael Quiros MD Unavailable [phone] Mohan Rico MD Unavailable [phone] Betty Calvin Unavailable [phone] Sybil Alex [facility] Unavailable Unavailable Vitaliy Alcazar MD Unavailable [phone] Rivka Coello [facility] Unavailable Unavailable Carol Sainz RN Unavailable Unavailable Sybil Alex [facility] Unavailable Unavailable Encounter Details Date Type Department Care Team (Latest Contact Info) Description 02/13/2017 Orders Only MMG CLINCONV ProviderKrzysztof MD [address] [place] [address] Social History Tobacco Use Types Packs/Day Years Used Date Smoking Tobacco: Never Alcohol Use Standard Drinks/Week Comments No 0 (1 standard drink = 0.6 oz pur e alcohol) Comments Unknown Sex and Gender Information Value Date Recorded Sex Assigned at Not on file Legal Sex Female 10:24 AM OPERATION AGENT Gender Identity Female 01/15/2021 9:27 PM CDT Sexual Orientation Straight 01/15/2021 9: 27 PM CDT documented as of this encounter Plan of Treatment Upcoming Encounters Date Type Department Care Team (Latest Contact Info) Description 01/27/2025 7:30 AM CDT Hospital Encounter [facility] Operating Room [address] [place] [address] [place] [address] [facility] [address], [place] [id number] 01/27/2025 7:30 AM CDT - 01/27/2025 9:00 AM CDT Surgery [facility] Operating Room [id number] [place] [address] [place] [address] [facility] [address], [place] [id number] DEBRIDEMENT LEFT KNEE WOUND WITH WOUND VAC [...] documented as of this encounter Care Teams Chief Engineer Production Relationship Specialty Start Date End Date Harry Jorgensen MD PCP - General 09/06/16 Vitaliy Alcazar MD [address] [facility] [address] [place] [address] [place] [address] PCP - Home Infusion Attending Infectious Diseases 11/10/24 Truman Moody MD Clinical Lab Clerk Cardiology 02/01/19 09/16/24 Michael Quiros MD [address] [place] [address] Referring Physician Interventional Cardiology 09/17/24 Mohan Rico MD [address] [facility] [address] [place] [place] [address] Consulting Physician Pulmonary Disease 09/17/24 Betty aClvin PA [address] [facility] [address] [place] [place] [address] Physician Parquet Floor Layer'S Helper Orthopedic Surgery 10/08/24 Sybil Alex, [facility] Pharmacist Pharmacy 10/29/24 11/15/24 Rivka Coello [facility] Pharmacist Pharmacy 11/15/24 11/23/24 Carol Sainz, RN Registered Nurse 12/02/24 Sybil Alex, [facility] Pharmacist Pharmacy 12/08/24 12/24/24 documented as of this encounter
--- OUTSIDE RECORDS SUMMARY | 2025-01-21 15:44 | XMS_ITS | Encounter Summary ---
Author Organization [facility] Facility Care Team Providers Care Information Technology Project Manager Name Role Phone Harry Jorgensen MD Primary Care Provider + Truman Moody MD Unavailable [phone] Michael Quiros MD Unavailable [phone] Mohan Rico MD Unavailable [phone] Betty Calvin Unavailable [phone] Sybil Alex [facility] Unavailable Unavailable Vitaliy Alcazar MD Unavailable [phone] Rivka Coello [facility] Unavailable Unavailable Carol Sainz RN Unavailable Unavailable Sybil Alex [facility] Unavailable Unavailable Encounter Details Date Type Department Care Team (Latest Contact Info) Description 10/10/2016 Orders Only MMG CLINCONV ProviderKrzysztof MD [address] [place] [address] Social History Tobacco Use Types Packs/Day Years Used Date Smoking Tobacco: Never Alcohol Use Standard Drinks/Week Comments No 0 (1 standard drink = 0.6 oz pur e alcohol) Comments Unknown Sex and Gender Information Value Date Recorded Sex Assigned at Not on file Legal Sex Female 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 Gender Identity Female 01/15/2021 9:27 PM CDT Sexual Orientation Straight 01/15/2021 9: 27 PM CDT documented as of this encounter Plan of Treatment Upcoming Encounters Date Type Department Care Team (Latest Contact Info) Description 01/27/2025 7:30 AM CDT Hospital Encounter [facility] Operating Room [address] [place] [address] [place] [address] [facility] [address], [place] [id number] 01/27/2025 7:30 AM CDT - 01/27/2025 9:00 AM CDT Surgery [facility] Operating Room [id number] [place] [address] [place] [address] [facility] [address], [place] [id number] DEBRIDEMENT LEFT KNEE WOUND WITH WOUND VAC [...] documented as of this encounter Care Teams Information Technology Project Manager Relationship Specialty Start Date End Date Harry Jorgensen MD PCP - General 09/06/16 Vitaliy Alcazar MD [address] [facility] [address] [place] [address] [place] [address] PCP - Home Infusion Attending Infectious Diseases 11/10/24 Truman Moody MD Propeller Tester Cardiology 02/01/19 09/16/24 Michael Quiros MD [address] [place] [address]473 Referring Physician Interventional Cardiology 09/17/24 Mohan Rico MD [address] [facility] [address] [place] [place] [address] Consulting Physician Pulmonary Disease 09/17/24 Betty Calvin PA [address] [facility] [address] [place] [address] [place] [address] Physician Thread Milling Machine Set Up Operator Orthopedic Surgery 10/08/24 Sybil Alex, [facility] Pharmacist Pharmacy 10/29/24 11/15/24 Rivka Coello [facility] Pharmacist Pharmacy 11/15/24 11/23/24 Carol Sainz, RN Registered Nurse 12/02/24 Sybil Alex, [facility] Pharmacist Pharmacy 12/08/24 12/24/24 documented as of this encounter
--- OUTSIDE RECORDS SUMMARY | 2025-01-21 15:44 | XMS_ITS | Encounter Summary ---
Author Organization [facility] Facility Care Team Providers Care Oyster Grower Name Role Phone Harry Jorgensen MD Primary Care Provider + Taqueria Sullivan MD Primary Care Provider [phone] Harry Jorgensen MD Primary Care Provider + Truman Moody MD Unavailable [phone] Michael Quiros MD Unavailable [phone] Mohan Rico MD Unavailable [phone] Betty Calvin Unavailable [phone] Sybil Alex [facility] Unavailable Unavailable Vitaliy Alcazar MD Unavailable [phone] Rivka Coello [facility] Unavailable Unavailable Carol Sainz RN Unavailable Unavailable Sybil Alex [facility] Unavailable Unavailable Encounter Details Date Type Department Care Team (Latest Contact Info) Description 01/08/2016 Orders Only MMG CLINCONV ProviderKrzysztof MD [address] [place] [address] Social History Tobacco Use Types Packs/Day Years Used Date Smoking Tobacco: Never Alcohol Use Standard Drinks/Week Comments No 0 (1 standard drink = 0.6 oz pur e alcohol) Comments Unknown Sex and Gender Information Value Date Recorded Sex Assigned at Not on file 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 Gender Identity Female 01/15/2021 9:27 PM CDT Sexual Orientation Straight 01/15/2021 9: 27 PM CDT documented as of this encounter Plan of Treatment Upcoming Encounters Date Type Department Care Team (Latest Contact Info) Description 01/27/2025 7:30 AM CDT Hospital Encounter [facility] Operating Room [address] [place] [address] [place] [address] [facility] [address] [address] 01/27/2025 7:30 AM CDT - 01/27/2025 9:00 AM CDT Surgery [facility] Operating Room [address] [place] [address] [place] [address] [facility] [address], [place] [id number] DEBRIDEMENT LEFT KNEE WOUND WITH WOUND VAC [...] documented as of this encounter Care Teams Oyster Grower Relationship Specialty Start Date End Date Harry Jorgensen MD PCP - General 09/06/16 Taqueria Sullivan MD [address] [address] PCP - General 08/27/16 09/05/16 Harry Jorgensen MD PCP - General 04/21/14 08/26/16 Vitaliy Alcazar MD [address] [facility] [address] [place] [address] [place] [address] PCP - Home Infusion Attending Infectious Diseases 11/10/24 Truman Moody MD 4921 [facility] [address] [address] Car Wash Supervisor Cardiology 02/01/19 09/16/24 Michael Quiros MD [address] [place] [place] [address] Referring Physician Interventional Cardiology 09/17/24 Mohan Rico MD [address] [facility] [address] [place] [address] [place] [address] Consulting Physician Pulmonary Disease 09/17/24 Betty Calvin PA [address] [facility] [address] [place] [place] [address] Physician Intelligence Manager Orthopedic Surgery 10/08/24 Sybil Alex [facility] Pharmacist Pharmacy 10/29/24 11/15/24 Rivka Coello, [facility] Pharmacist Pharmacy 11/15/24 11/23/24 Carol Sainz, RN Registered Nurse 12/02/24 Sybil Alex, [facility] Pharmacist Pharmacy 12/08/24 12/24/24 documented as of this encounter
--- OUTSIDE RECORDS SUMMARY | 2025-01-21 15:44 | XMS_ITS | Encounter Summary ---
Author Organization [facility] Facility Care Team Providers Care Digital Printer Name Role Phone Harry Jorgensen MD Primary Care Provider + Truman Moody MD Unavailable [phone] Michael Quiros MD Unavailable [phone] Mohan Rico MD Unavailable [phone] Betty Calvin Unavailable [phone] Sybil Alex [facility] Unavailable Unavailable Vitaliy Alcazar MD Unavailable [phone] Rivka Coello [facility] Unavailable Unavailable Carol Sainz RN Unavailable Unavailable Sybil Alex [facility] Unavailable Unavailable Encounter Details Date Type Department Care Team (Latest Contact Info) Description 03/17/2017 Orders Only MMG CLINCONV ProviderKrzysztof MD [address] [place] [address] Social History Tobacco Use Types Packs/Day Years Used Date Smoking Tobacco: Never Alcohol Use Standard Drinks/Week Comments No 0 (1 standard drink = 0.6 oz pur e alcohol) Comments Unknown Sex and Gender Information Value Date Recorded Sex Assigned at Not on file 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 Gender Identity Female 01/15/2021 9:27 PM CDT Sexual Orientation Straight 01/15/2021 9: 27 PM CDT documented as of this encounter Plan of Treatment Upcoming Encounters Date Type Department Care Team (Latest Contact Info) Description 01/27/2025 7:30 AM CDT Hospital Encounter [facility] Operating Room [address] [place] [address] [place] [address] [facility] [address], [place] [id number] 01/27/2025 7:30 AM CDT - 01/27/2025 9:00 AM CDT Surgery [facility] Operating Room [address] [place] [address] [place] [address] [facility] [address], [place] [id number] DEBRIDEMENT LEFT KNEE WOUND WITH WOUND VAC [...] documented as of this encounter Care Teams Digital Printer Relationship Specialty Start Date End Date Harry Jorgensen MD PCP - General 09/06/16 Vitaliy Alcazar MD [address] [facility] [address] [place] [address] [place] [address] PCP - Home Infusion Attending Infectious Diseases 11/10/24 Truman Moody MD Cementing Machine Operator Cardiology 02/01/19 09/16/24 Michael Quiros MD [address] [place] [address] Referring Physician Interventional Cardiology 09/17/24 Mohan Rico MD [address] [facility] [address] [place] [address] [place] [address] Consulting Physician Pulmonary Disease 09/17/24 Betty Calvin PA [address] [facility] [address] [place] [address] Physician Bank Accountant Orthopedic Surgery 10/08/24 Sybil Alex, [facility] Pharmacist Pharmacy 10/29/24 11/15/24 Rivka Coello [facility] Pharmacist Pharmacy 11/15/24 11/23/24 Carol Sainz, RN Registered Nurse 12/02/24 Sybil Alex, [facility] Pharmacist Pharmacy 12/08/24 12/24/24 documented as of this encounter
--- OUTSIDE RECORDS SUMMARY | 2025-01-21 15:44 | XMS_ITS | Encounter Summary ---
Author Organization [facility] Facility Care Team Providers Care Cable Swager Name Role Phone Harry Jorgensen MD Primary Care Provider + Truman Moody MD Unavailable [phone] Michael Quiros MD Unavailable [phone] Mohan Rico MD Unavailable [phone] Betty Calvin Unavailable [phone] Sybil Alex [facility] Unavailable Unavailable Vitaliy Alcazar MD Unavailable [phone] Rivka Coello [facility] Unavailable Unavailable Carol Sainz RN Unavailable Unavailable Sybil Alex [facility] Unavailable Unavailable Encounter Details Date Type Department Care Team (Latest Contact Info) Description 01/15/2017 Orders Only MMG CLINCONV ProviderKrzysztof MD [address] [place] [address] Social History Tobacco Use Types Packs/Day Years Used Date Smoking Tobacco: Never Alcohol Use Standard Drinks/Week Comments No 0 (1 standard drink = 0.6 oz pur e alcohol) Comments Unknown Sex and Gender Information Value Date Recorded Sex Assigned at Not on file 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 Gender Identity Female 01/15/2021 9:27 PM CDT Sexual Orientation Straight 01/15/2021 9: 27 PM CDT documented as of this encounter Plan of Treatment Upcoming Encounters Date Type Department Care Team (Latest Contact Info) Description 01/27/2025 7:30 AM CDT Hospital Encounter [facility] Operating Room [address] [place] [address] [place] [address] [facility] [address], [place] [id number] 01/27/2025 7:30 AM CDT - 01/27/2025 9:00 AM CDT Surgery [facility] Operating Room [address] [place] [address] [place] [address] [facility] [address], [place] [id number] DEBRIDEMENT LEFT KNEE WOUND WITH WOUND VAC [...] documented as of this encounter Care Teams Cable Swager Relationship Specialty Start Date End Date Harry Jorgensen MD PCP - General 09/06/16 Vitaliy Alcazar MD [address] [facility] [address] [place] [address] PCP - Home Infusion Attending Infectious Diseases 11/10/24 Truman Moody MD Residential Door Installer Cardiology 02/01/19 09/16/24 Michael Quiros MD [address] [place] [address] Referring Physician Interventional Cardiology 09/17/24 Mohan Rico MD [address] [facility] [address] [place] [address] Consulting Physician Pulmonary Disease 09/17/24 Betty Calvin PA [address] [facility] [address] [place] [place] [address] Physician Clinical Specialist Vascular Orthopedic Surgery 10/08/24 Sybil Alex, [facility] Pharmacist Pharmacy 10/29/24 11/15/24 Rivka Coello, [facility] Pharmacist Pharmacy 11/15/24 11/23/24 Carol Sainz, EKATERINA Registered Nurse 12/02/24 Sybil Alex, [facility] Pharmacist Pharmacy 12/08/24 12/24/24 documented as of this encounter
--- OUTSIDE RECORDS SUMMARY | 2025-01-21 15:44 | XMS_ITS | Clinical Summary ---
Author Organization Unknown Care Team Providers Care Administrative Support Manager Name Role Phone LUIS MCMULLEN, TOM Unavailable Unavailable VELASQUEZ JAY, KATHY Unavailable Unavailable FOSTER RN, SUMMER Unavailable Unavailable FLORENCE RN, LIVAN Unavailable Unavailable NICOLA TOBAR, KENAN Unavailable Unavailabl e Payers Payer Name Policy Type Policy Number Effective Date Expira tion Date MEDICARE - [place] - PDGM [id number] Problems Condition Name Condition Details Condition Category Status Onset Date Resolution Date Last Treatment Date Treating Clinician Comments Disrupt/dehi sc of closure of oth int op (surg) wound, subs Active 06-09 00:00: 00 INFECT/INFLM REACTION DUE TO INTERNAL R KNEE PROSTH, SUBS Active 06-09 00:00: 00 CHRONIC ATRIAL FIBRILLATION , UNSPECIFIED Active 06-09 00:00: 00 HYPERTENSIVE HEART DISEASE WITH HEART FAILURE Active 06-09 00:00: 00 HEART FAILURE, UNSPECIFIED Active 06-09 00:00: 00 Obesity, class 3 Active 06-09 00:00: 00 BODY MASS INDEX [BMI] 45.0-49.9, ADULT Active 06-09 00:00: 00 SLEEP APNEA, UNSPECIFIED Active 06-09 00:00: 00 DISORDER OF THYROID, UNSPECIFIED Active 06-09 00:00: 00 PURE HYPERCHOLEST EROLEMIA, UNSPECIFIED Active 06-09 00:00: 00 OBSTRUCTIVE SLEEP APNEA (ADULT) (PEDIATRIC) Active 06-09 00:00: 00 NUTRITIONAL ANEMIA, UNSPECIFIED Active 06-09 00:00: 00 PRESENCE OF CARDIAC PACEMAKER Active 06-09 00:00: 00 CATARACT EXTRACTION STATUS, LEFT EYE Active 06-09 00:00: 00 CATARACT EXTRACTION STATUS, RIGHT EYE Active 06-09 00:00: 00 PERSONAL HISTORY OF OTHER VENOUS THROMBOSIS AND EMBOLISM Active 06-09 00:00: 00 PRESENCE OF ARTIFICIAL KNEE JOINT, BILATERAL Active 06-09 00:00: 00 PERSONAL HISTORY OF COVID-19 Active 06-09 00:00: 00 PRESENCE OF RIGHT ARTIFICIAL ELBOW JOINT Active 06-09 00:00: 00 ACQUIRED ABSENCE OF OTHER SPECIFIED PARTS OF DIGESTIVE TRACT Active 06-09 00:00: 00 ACQUIRED ABSENCE OF BOTH CERVIX AND UTERUS Active 06-09 00:00: 00 PERSONAL HISTORY OF OTHER MALIGNANT NEOPLASM OF SKIN Active 06-09 00:00: 00 OTHER [facility] (CURRENT) DRUG THERAPY Active 06-09 00:00: 00 [facility] (CURRENT) USE OF ANTICOAGULAN TS Active 06-09 00:00: 00 HISTORY OF FALLING Active 06-09 00:00: 00 DISRUPTION OF INTERNAL OPERATION (SURGICAL) WOUND, NEC, SUBS Active 11-19 00:00: 00 Allergies, Adverse Reactions, Alerts Allergy Name Allergy Type Status Severity Reaction(s) Onset Date Inactive Date Treating Clinician Comments ADHESIVE Propensity to adverse reactions Active 11-24 18:05: 55 ATORVASTATIN Propensity to adverse reactions Active 11-24 18:06: 05 AZITHROMYCIN Propensity to adverse reactions Active 11-24 18:06: 15 MORPHINE Propensity to adverse reactions Active 11-24 18:06: 24 PREDNISONE Propensity to adverse reactions Active 11-24 18:06: 35 VANCOMYCIN Propensity to adverse reactions Active 11-24 18:06: 56 SODIUM HYPOCHLORITE Propensity to adverse reactions Active 11-24 18:07: 27 TOPICAL SILVER Propensity to adverse reactions Active 11-25 08:20: 19 Medications Ordered Medication Name Filled Medication Name Start Date Stop Date Current Medication? Ordering Clinician Indication Dosage Frequency Signature (SIG) Comments Components ampicillin 500 mg capsule 10-30 00:00: 00 11-24 00:00 :00 No [id number] 1 capsule 4 TIMES DAILY 1 capsule 4 TIMES DAILY (route: oral) Med Classific ation: Anti-Infe ctive Agents ascorbic acid (vitamin C) 1,000 mg capsule 10-30 00:00: 00 11-24 00:00 :00 No [id number] 1 capsule 2 TIMES DAILY 1 capsule 2 TIMES DAILY (route: oral) Med Classific ation: Electroly te Balance-N utritiona l Products biotin 5,000 mcg sublingual tablet 10-30 00:00: 00 11-24 00:00 :00 No [id number] 1 tablet DAILY 1 tablet DAILY (route: sublingual ) Med Classific ation: Electroly te Balance-N utritiona l Products Brainstrong Memory Support 120 mg-110 mg tablet 10-30 00:00: 00 11-24 00:00 :00 No [id number] 1 tablet DAILY 1 tablet DAILY (route: oral) Med Classific ation: Alternati ve Therapy calcium 333 mg (carbonate) -magnesium 133 mg (oxide)-zin c 5 mg tablet 10-30 00:00: 00 11-24 00:00 :00 No [id number] 1 tablet DAILY 1 tablet DAILY (route: oral) Med Classific ation: Electroly te Balance-N utritiona l Products calcium 500 mg (as calcium carbonate 1,250 mg) tablet 10-30 00:00: 00 11-24 00:00 :00 No [id number] 1 tablet DAILY 1 tablet DAILY (route: oral) Med Classific ation: Electroly [employer] Balance[employer]N [employer] Products Co Q-10 300 mg capsule 10-30 00:00: 00 11-24 00:00 :00 No [id number] 1 capsule DAILY 1 capsule DAILY (route: oral) Med Classific ation: Alternati ve Therapy cranberry 500 mg capsule 10-30 00:00: 00 11-24 00:00 :00 No [id number] 1 capsule DAILY 1 capsule DAILY (route: oral) Med Classific ation: Alternati ve Therapy Dialyvite Vitamin D 125 mcg (5,000 unit) capsule 10-30 00:00: 00 11-24 00:00 :00 No [id number] 1 capsule 2 TIMES DAILY 1 capsule 2 TIMES DAILY (route: oral) Med Classific ation: Electroly te Balance-N utritiona l Products furosemide 40 mg tablet 10-30 00:00: 00 11-24 00:00 :00 No [id number] 1 tablet DAILY 1 tablet DAILY (route: oral) Med Classific ation: Cardiovas cular Therapy Agents Heparin Lock Flush (Porcine) (PF) 10 unit/mL intravenous syringe 10-30 00:00: 00 11-24 00:00 :00 No [id number] 5 mL DIRECTED 5 mL DIRECTED (route: intravenou s) Med Classific ation: Hematolog ical Agents Lactobacill us acidophilus 1 billion cell tablet 10-30 00:00: 00 11-24 00:00 :00 No [id number] 1 tablet DAILY 1 tablet DAILY (route: oral) Med Classific ation: Gastroint estinal Therapy Agents levothyroxi ne 150 mcg tablet 10-30 00:00: 00 11-24 00:00 :00 No [id number] 1 tablet DAILY 1 tablet DAILY (route: oral) Med Classific ation: Endocrine loperamide 2 mg tablet 10-30 00:00: 00 11-24 00:00 :00 No [id number] 1 tablet 4 TIMES DAILY 1 tablet 4 TIMES DAILY (route: oral) Med Classific ation: Gastroint estinal Therapy Agents magnesium 250 mg tablet 10-30 00:00: 00 11-24 00:00 :00 No [id number] 1 tablet DAILY 1 tablet DAILY (route: oral) Med Classific ation: Electroly te Balance-N utritiona l Products nitroglycer in 0.4 mg sublingual tablet 10-30 00:00: 00 11-24 00:00 :00 No [id number] 1 tablet DIRECTED 1 tablet DIRECTED (route: sublingual ) Med Classific ation: Cardiovas cular Therapy Agents Normal Saline Flush 0.9 % injection syringe 10-30 00:00: 00 11-24 00:00 :00 No [id number] 10-20 mL DIRECTED 10-20 mL DIRECTED (route: injection) Med Classific ation: Electroly te Balance-N utritiona l Products potassium chloride ER 10 mEq capsule,ext ended release 10-30 00:00: 00 11-24 00:00 :00 No [id number] 1 capsule DAILY 1 capsule DAILY (route: oral) Med Classific ation: Electroly te Balance-N utritiona l Products red yeast rice 600 mg capsule 10-30 00:00: 00 11-24 00:00 :00 No [id number] 1 capsule DAILY 1 capsule DAILY (route: oral) Med Classific ation: Alternati ve Therapy rosuvastati n 5 mg tablet 10-30 00:00: 00 11-24 00:00 :00 No [id number] 1 tablet DAILY 1 tablet DAILY (route: oral) Med Classific ation: Cardiovas cular Therapy Agents sotalol 160 mg tablet 10-30 00:00: 00 11-24 00:00 :00 No [id number] 1 tablet 2 TIMES DAILY 1 tablet 2 TIMES DAILY (route: oral) Med Classific ation: Cardiovas cular Therapy Agents tramadol 50 mg tablet 10-30 00:00: 00 11-24 00:00 :00 No [id number] 1 tablet EVERY 6 HOURS 1 tablet EVERY 6 HOURS (route: oral) Med Classific ation: Analgesic , Anti-infl ammatory or Antipyret ic turmeric root extract 500 mg tablet 10-30 00:00: 00 11-24 00:00 :00 No [id number] 1 tablet DAILY 1 tablet DAILY (route: oral) Med Classific ation: Alternati ve Therapy Tylenol Extra Strength 500 mg tablet 10-30 00:00: 00 11-24 00:00 :00 No [id number] 1 tablet 2 TIMES DAILY 1 tablet 2 TIMES DAILY (route: oral) Med Classific ation: Analgesic , Anti-infl ammatory or Antipyret ic verapamil 120 mg tablet 10-30 00:00: 00 11-24 00:00 :00 No [id number] 1 tablet DAILY 1 tablet DAILY (route: oral) Med Classific ation: Cardiovas cular Therapy Agents verapamil ER (SR) 240 mg tablet,exte nded release 10-30 00:00: 00 11-24 00:00 :00 No [id number] 1 tablet DAILY 1 tablet DAILY (route: oral) Med Classific ation: Cardiovas cular Therapy Agents Vitamin C 100 mg tablet 10-30 00:00: 00 11-24 00:00 :00 No [id number] 1 tablet DAILY 1 tablet DAILY (route: oral) Med Classific ation: Electroly te Balance-N utritiona l Products Xarelto 20 mg tablet 11-12 00:00: 00 11-24 00:00 :00 No [id number] 1 tablet EVERY PM 1 tablet EVERY PM (route: oral) Med Classific ation: Hematolog ical Agents Betapace AF 160 mg tablet 11-24 00:00: 00 Yes [id number] 1 tablet 2 TIMES DAILY 1 tablet 2 TIMES DAILY (route: oral) Med Classific ation: Cardiovas cular Therapy Agents Blink Tears 0.25 % eye drops 11-24 00:00: 00 Yes [id number] 1 drops 2 TIMES DAILY 1 drops 2 TIMES DAILY (route: ophthalmic (eye)) Med Classific ation: Ophthalmi c Agents Calcium 500 + D 500 mg-10 mcg (400 unit) tablet 11-24 00:00: 00 Yes [id number] 1 mg 2 TIMES DAILY 1 mg 2 TIMES DAILY (route: oral) Med Classific ation: Electroly te Balance-N utritiona l Products Co Q-10 300 mg capsule 11-24 00:00: 00 Yes [id number] 1 capsule DAILY 1 capsule DAILY (route: oral) Med Classific ation: Alternati ve Therapy Crestor 5 mg tablet 11-24 00:00: 00 Yes [id number] 1 tablet DAILY 1 tablet DAILY (route: oral) Med Classific ation: Cardiovas cular Therapy Agents doxycycline hyclate 100 mg capsule 11-24 00:00: 12-08 23:59 :00 No [id number] 1 capsule 2 TIMES DAILY 1 capsule 2 TIMES DAILY (route: oral) Med Classific ation: Anti-Infe ctive Agents Flonase Allergy Relief 50 mcg/actuati on nasal spray,suspe nsion 11-24 00:00: 00 Yes [id number] 1 spray DAILY 1 spray DAILY (route: nasal) Med Classific ation: Respirato ry Therapy Agents Klor-Con 10 mEq tablet,exte nded release 11-24 00:00: 00 Yes [id number] 1 tablet DAILY 1 tablet DAILY (route: oral) Med Classific ation: Electroly te Balance-N utritiona l Products Lactobacill us acidophilus 500 million cell capsule 11-24 00:00: 00 Yes [id number] 1 capsule DAILY 1 capsule DAILY (route: oral) Med Classific ation: Gastroint estinal Therapy Agents Lasix 40 mg tablet 11-24 00:00: 00 Yes [id number] 1 tablet DAILY 1 tablet DAILY (route: oral) Med Classific ation: Cardiovas cular Therapy Agents levothyroxi ne 150 mcg capsule 11-24 00:00: 00 Yes [id number] 1 capsule DAILY 1 capsule DAILY (route: oral) Med Classific ation: Endocrine loperamide 2 mg capsule 11-24 00:00: 00 Yes [id number] 1 capsule 4 TIMES DAILY 1 capsule 4 TIMES DAILY (route: oral) Med Classific ation: Gastroint estinal Therapy Agents Nitrostat 0.4 mg sublingual tablet 11-24 00:00: 00 Yes [id number] 1 tablet NEEDED 1 tablet NEEDED (route: sublingual ) Med Classific ation: Cardiovas cular Therapy Agents tramadol 50 mg tablet 11-24 00:00: 00 Yes [id number] 1 tablet EVERY 8 HOURS 1 tablet EVERY 8 HOURS (route: oral) Med Classific ation: Analgesic , Anti-infl ammatory or Antipyret ic Tylenol 325 mg tablet 11-24 00:00: 00 Yes [id number] 2 tablet EVERY 6 HOURS 2 tablet EVERY 6 HOURS (route: oral) Med Classific ation: Analgesic , Anti-infl ammatory or Antipyret ic verapamil ER (SR) 120 mg tablet,exte nded release 11-24 00:00: 00 Yes [id number] 1 tablet DAILY 1 tablet DAILY (route: oral) Med Classific ation: Cardiovas cular Therapy Agents verapamil ER (SR) 240 mg tablet,exte nded release 11-24 00:00: 00 Yes [id number] 1 tablet DAILY 1 tablet DAILY (route: oral) Med Classific ation: Cardiovas cular Therapy Agents Vitamin C ER 1,000 mg tablet,exte nded release 11-24 00:00: 00 Yes [id number] 1 tablet 2 TIMES DAILY 1 tablet 2 TIMES DAILY (route: oral) Med Classific ation: Electroly te Balance-N utritiona l Products Vitamin D3 125 mcg (5,000 unit) tablet 11-24 00:00: 00 Yes [id number] 1 tablet 2 TIMES DAILY 1 tablet 2 TIMES DAILY (route: oral) Med Classific ation: Electroly te Balance-N utritiona l Products Xarelto 20 mg tablet 11-24 00:00: 00 Yes [id number] 1 tablet EVERY PM 1 tablet EVERY PM (route: oral) Med Classific ation: Hematolog ical Agents magnesium 400 mg (as magnesium oxide) tablet 11-24 00:00: 00 Yes [id number] 1 tablet DAILY 1 tablet DAILY (route: oral) Med Classific ation: Electroly te Balance-N utritiona l Products trospium 20 mg tablet 11-24 00:00: 00 Yes [id number] 1 tablet 2 TIMES DAILY 1 tablet 2 TIMES DAILY (route: oral) Med Classific ation: Genitouri nary Therapy sodium chloride 0.9 % irrigation solution 11-24 00:00: 00 Yes [id number] Per instruc tions DIRECTED Per instructio ns DIRECTED (route: irrigation ) Med Classific ation: Electroly te Balance-N utritiona l Products Pharmacy Compounded Medication 11-24 00:00: 00 12-02 08:36 :02.5 47 No [id number] Per instruc tions DIRECTED Per instructio ns DIRECTED (route: Per Instructio ns) Med Classific ation: Custom Pharmacy Compounded Medication 12-01 00:00: 00 12-08 23:59 :00 No [id number] Per instruc tions DIRECTED Per instructio ns DIRECTED (route: Per Instructio ns) Med Classific ation: Custom Pharmacy Compounded Medication 12-01 00:00: 00 12-08 23:59 :00 No [id number] Per instruc tions DIRECTED Per instructio ns DIRECTED (route: Per Instructio ns) Med Classific ation: Custom Pharmacy Compounded Medication 12-01 00:00: 00 Yes [id number] Per instruc tions DIRECTED Per instructio ns DIRECTED (route: Per Instructio ns) Med Classific ation: Custom cefepime 2 gram solution for injection 12-09 00:00: 00 12-23 23:59 :00 No [id number] 2 g DAILY 2 g DAILY (route: injection) Med Classific ation: Anti-Infe ctive Agents Heparin Lock Flush (Porcine) (PF) 10 unit/mL intravenous syringe 12-09 00:00: 00 12-23 23:59 :00 No [id number] 5 mL DIRECTED 5 mL DIRECTED (route: intravenou s) Med Classific ation: Hematolog ical Agents Normal Saline Flush 0.9 % injection syringe 12-09 00:00: 00 12-23 23:59 :00 No [id number] 10-20 mL DIRECTED 10-20 mL DIRECTED (route: injection) Med Classific ation: Electroly te Balance-N utritiona l Products ciprofloxac in 250 mg tablet 12-23 00:00: 00 12-29 23:59 :00 No [id number] 2 tablet 2 TIMES DAILY 2 tablet 2 TIMES DAILY (route: oral) Med Classific ation: Anti-Infe ctive Agents Wound Cleanser irrigation spray 12-24 00:00: 00 Yes [id number] Per instruc tions DIRECTED Per instructio ns DIRECTED (route: irrigation ) Med Classific ation: Dermatolo gical doxycycline hyclate 100 mg capsule 01-12 00:00: 00 Yes [id number] 1 capsule 2 TIMES DAILY 1 capsule 2 TIMES DAILY (route: oral) Med Classific ation: Anti-Infe ctive Agents Immunizations Ordered Immunization Name Filled Immunization Name Date Status Comments Refusal Reason REFUSED FLU, PPV 2024-11-24 00:00:00 Vital Signs Vital Name Observation Time Observation Value Commen ts Temperature 2025-01-20 09:25:00.000 97 [degF] Temperature 2025-01-19 10:07:00.000 97.6 [degF] Temperature 2025-01-14 10:09:00.000 97.4 [degF] Temperature 2025-01-13 09:17:00.000 97 [degF] Temperature 2025-01-12 13:32:00.000 96.7 [degF] Temperature 2025-01-07 12:18:00.000 97.6 [degF] Temperature 2025-01-06 12:11:00.000 97.4 [degF] Temperature 2025-01-06 08:26:00.000 96.8 [degF] Temperature 2025-01-05 09:54:00.000 97.2 [degF] Temperature 2024-12-31 10:24:00.000 96.8 [degF] Temperature 2024-12-29 08:44:00.000 97.9 [degF] Temperature 2024-12-28 08:26:00.000 97.6 [degF] Temperature 2024-12-24 08:57:00.000 97.7 [degF] Temperature 2024-12-22 15:36:00.000 97.3 [degF] Temperature 2024-12-22 11:09:00.000 98.2 [degF] Temperature 2024-12-17 16:36:00.000 97.2 [degF] Temperature 2024-12-15 14:37:00.000 97.1 [degF] Temperature 2024-12-15 09:39:00.000 96.8 [degF] Temperature 2024-12-13 14:00:00.000 98.4 [degF] Temperature 2024-12-10 10:00:00.000 97.7 [degF] Temperature 2024-12-01 13:16:00.000 97.6 [degF] Temperature 2024-11-30 14:36:00.000 97.2 [degF] Temperature 2024-11-29 10:25:00.000 97 [degF] Temperature 2024-11-25 10:56:00.000 96.8 [degF] Temperature 2024-11-24 12:14:00.000 97.9 [degF] BMI (%) 2024-12-10 10:00:00.000 47 kg/m2 BMI (%) 2024-11-24 12:14:00.000 47 kg/m2 Height 2024-12-10 10:00:00.000 65 [in_us] Height 2024-11-24 12:14:00.000 65 [in_us] Pulse 2025-01-20 09:25:00.000 68 /min Pulse 2025-01-19 10:07:00.000 64 /min Pulse 2025-01-14 10:09:00.000 69 /min Pulse 2025-01-13 09:17:00.000 60 /min Pulse 2025-01-12 13:32:00.000 74 /min Pulse 2025-01-07 12:18:00.000 66 /min Pulse 2025-01-06 12:11:00.000 62 /min Pulse 2025-01-06 08:26:00.000 68 /min Pulse 2025-01-05 09:54:00.000 66 /min Pulse 2024-12-31 10:24:00.000 64 /min Pulse 2024-12-29 08:44:00.000 68 /min Pulse 2024-12-28 08:26:00.000 76 /min Pulse 2024-12-24 08:57:00.000 64 /min Pulse 2024-12-22 15:36:00.000 80 /min Pulse 2024-12-22 11:09:00.000 60 /min Pulse 2024-12-17 16:36:00.000 65 /min Pulse 2024-12-15 14:37:00.000 60 /min Pulse 2024-12-15 09:39:00.000 64 /min Pulse 2024-12-13 14:00:00.000 60 /min Pulse 2024-12-10 10:00:00.000 72 /min Pulse 2024-12-01 13:16:00.000 60 /min Pulse 2024-11-30 14:36:00.000 66 /min Pulse 2024-11-29 10:25:00.000 61 /min Pulse 2024-11-25 10:56:00.000 64 /min Pulse 2024-11-24 12:14:00.000 68 /min O2 Saturation (%) 2025-01-20 09:25:00.000 98 % O2 Saturation (%) 2025-01-19 10:07:00.000 99 % O2 Saturation (%) 2025-01-14 10:09:00.000 96 % O2 Saturation (%) 2025-01-13 09:17:00.000 95 % O2 Saturation (%) 2025-01-12 13:32:00.000 98 % O2 Saturation (%) 2025-01-07 12:18:00.000 98 % O2 Saturation (%) 2025-01-06 12:11:00.000 97 % O2 Saturation (%) 2025-01-06 08:26:00.000 98 % O2 Saturation (%) 2025-01-05 09:54:00.000 98 % O2 Saturation (%) 2024-12-31 10:24:00.000 98 % O2 Saturation (%) 2024-12-29 08:44:00.000 98 % O2 Saturation (%) 2024-12-28 08:26:00.000 98 % O2 Saturation (%) 2024-12-24 08:57:00.000 98 % O2 Saturation (%) 2024-12-22 15:36:00.000 98 % O2 Saturation (%) 2024-12-22 11:09:00.000 98 % O2 Saturation (%) 2024-12-17 16:36:00.000 98 % O2 Saturation (%) 2024-12-15 14:37:00.000 96 % O2 Saturation (%) 2024-12-15 09:39:00.000 98 % O2 Saturation (%) 2024-12-13 14:00:00.000 97 % O2 Saturation (%) 2024-12-10 10:00:00.000 95 % O2 Saturation (%) 2024-12-01 13:16:00.000 98 % O2 Saturation (%) 2024-11-30 14:36:00.000 98 % O2 Saturation (%) 2024-11-29 10:25:00.000 96 % O2 Saturation (%) 2024-11-25 10:56:00.000 96 % O2 Saturation (%) 2024-11-24 12:14:00.000 98 % Respirations 2025-01-20 09:25:00.000 18 /min Respirations 2025-01-19 10:07:00.000 18 /min Respirations 2025-01-14 10:09:00.000 18 /min Respirations 2025-01-13 09:17:00.000 18 /min Respirations 2025-01-12 13:32:00.000 18 /min Respirations 2025-01-07 12:18:00.000 18 /min Respirations 2025-01-06 12:11:00.000 18 /min Respirations 2025-01-06 08:26:00.000 18 /min Respirations 2025-01-05 09:54:00.000 18 /min Respirations 2024-12-31 10:24:00.000 18 /min Respirations 2024-12-29 08:44:00.000 18 /min Respirations 2024-12-28 08:26:00.000 18 /min Respirations 2024-12-24 08:57:00.000 18 /min Respirations 2024-12-22 15:36:00.000 18 /min Respirations 2024-12-22 11:09:00.000 18 /min Respirations 2024-12-17 16:36:00.000 17 /min Respirations 2024-12-15 14:37:00.000 18 /min Respirations 2024-12-15 09:39:00.000 18 /min Respirations 2024-12-13 14:00:00.000 18 /min Respirations 2024-12-10 10:00:00.000 18 /min Respirations 2024-12-01 13:16:00.000 18 /min Respirations 2024-11-30 14:36:00.000 18 /min Respirations 2024-11-29 10:25:00.000 18 /min Respirations 2024-11-25 10:56:00.000 18 /min Respirations 2024-11-24 12:14:00.000 18 /min Weight (lbs) 2025-01-19 10:13:00.000 280 [lb_av] Weight (lbs) 2025-01-14 10:16:00.000 278 [lb_av] Weight (lbs) 2025-01-12 13:35:00.000 278 [lb_av] Weight (lbs) 2025-01-07 12:18:00.000 278 [lb_av] Weight (lbs) 2025-01-06 12:11:00.000 275 [lb_av] Weight (lbs) 2025-01-05 09:55:00.000 278 [lb_av] Weight (lbs) 2024-12-31 10:28:00.000 278 [lb_av] Weight (lbs) 2024-12-29 08:44:00.000 278 [lb_av] Weight (lbs) 2024-12-24 08:58:00.000 281 [lb_av] Weight (lbs) 2024-12-22 11:09:00.000 281 [lb_av] Weight (lbs) 2024-12-10 10:00:00.000 288 [lb_av] Weight (lbs) 2024-11-24 12:14:00.000 288 [lb_av] Systolic Blood Pressure 2025-01-20 09:25:00.000 128 mm [Hg] Systolic Blood Pressure 2025-01-19 10:07:00.000 124 mm [Hg] Systolic Blood Pressure 2025-01-14 10:09:00.000 126 mm [Hg] Systolic Blood Pressure 2025-01-13 09:17:00.000 118 mm [Hg] Systolic Blood Pressure 2025-01-12 13:32:00.000 126 mm [Hg] Systolic Blood Pressure 2025-01-07 12:18:00.000 124 mm [Hg] Systolic Blood Pressure 2025-01-06 12:11:00.000 128 mm [Hg] Systolic Blood Pressure 2025-01-06 08:26:00.000 122 mm [Hg] Systolic Blood Pressure 2025-01-05 09:54:00.000 128 mm [Hg] Systolic Blood Pressure 2024-12-31 10:24:00.000 126 mm [Hg] Systolic Blood Pressure 2024-12-29 08:44:00.000 115 mm [Hg] Systolic Blood Pressure 2024-12-28 08:26:00.000 122 mm [Hg] Systolic Blood Pressure 2024-12-24 08:57:00.000 110 mm [Hg] Systolic Blood Pressure 2024-12-22 15:36:00.000 124 mm [Hg] Systolic Blood Pressure 2024-12-22 11:09:00.000 110 mm [Hg] Systolic Blood Pressure 2024-12-17 16:36:00.000 115 mm [Hg] Systolic Blood Pressure 2024-12-15 14:37:00.000 124 mm [Hg] Systolic Blood Pressure 2024-12-15 09:39:00.000 126 mm [Hg] Systolic Blood Pressure 2024-12-13 14:00:00.000 115 mm [Hg] Systolic Blood Pressure 2024-12-10 10:00:00.000 118 mm [Hg] Systolic Blood Pressure 2024-12-01 13:16:00.000 128 mm [Hg] Systolic Blood Pressure 2024-11-30 14:36:00.000 122 mm [Hg] Systolic Blood Pressure 2024-11-29 10:25:00.000 128 mm [Hg] Systolic Blood Pressure 2024-11-25 10:56:00.000 126 mm [Hg] Systolic Blood Pressure 2024-11-24 12:14:00.000 136 mm [Hg] Diastolic Blood Pressure 2025-01-20 09:25:00.000 70 mm [Hg] Diastolic Blood Pressure 2025-01-19 10:07:00.000 64 mm [Hg] Diastolic Blood Pressure 2025-01-14 10:09:00.000 64 mm [Hg] Diastolic Blood Pressure 2025-01-13 09:17:00.000 74 mm [Hg] Diastolic Blood Pressure 2025-01-12 13:32:00.000 76 mm [Hg] Diastolic Blood Pressure 2025-01-07 12:18:00.000 66 mm [Hg] Diastolic Blood Pressure 2025-01-06 12:11:00.000 74 mm [Hg] Diastolic Blood Pressure 2025-01-06 08:26:00.000 78 mm [Hg] Diastolic Blood Pressure 2025-01-05 09:54:00.000 84 mm [Hg] Diastolic Blood Pressure 2024-12-31 10:24:00.000 66 mm [Hg] Diastolic Blood Pressure 2024-12-29 08:44:00.000 70 mm [Hg] Diastolic Blood Pressure 2024-12-28 08:26:00.000 84 mm [Hg] Diastolic Blood Pressure 2024-12-24 08:57:00.000 65 mm [Hg] Diastolic Blood Pressure 2024-12-22 15:36:00.000 82 mm [Hg] Diastolic Blood Pressure 2024-12-22 11:09:00.000 60 mm [Hg] Diastolic Blood Pressure 2024-12-17 16:36:00.000 65 mm [Hg] Diastolic Blood Pressure 2024-12-15 14:37:00.000 60 mm [Hg] Diastolic Blood Pressure 2024-12-15 09:39:00.000 60 mm [Hg] Diastolic Blood Pressure 2024-12-13 14:00:00.000 60 mm [Hg] Diastolic Blood Pressure 2024-12-10 10:00:00.000 62 mm [Hg] Diastolic Blood Pressure 2024-12-01 13:16:00.000 78 mm [Hg] Diastolic Blood Pressure 2024-11-30 14:36:00.000 60 mm [Hg] Diastolic Blood Pressure 2024-11-29 10:25:00.000 64 mm [Hg] Diastolic Blood Pressure 2024-11-25 10:56:00.000 70 mm [Hg] Diastolic Blood Pressure 2024-11-24 12:14:00.000 64 mm [Hg] Plan of Treatment Planned Activity [...] GOAL FOR HOME HEALTH.] Future Scheduled Test [facility] MAY ACCEPT ORDERS FROM THE FOLLOWING PHYSICIANS: WOUND CENTER: DR. ANDRE GUO: DR. DANYELLE HUTTON FLOATING OPERATOR/TREATING PROVIDERS [code = HOME HEALTH AGENCY MAY ACCEPT ORDERS FROM THE FOLLOWING PHYSICIANS: WOUND CENTER: DR. ANDRE GUO: DR. DANYELLE HUTTON FLOATING OPERATOR/TREATING PROVIDERS] Future Scheduled Test SKILLED NU RSE TO INSTRUCT PATIENT/CAREGIVER ON AFTERCARE FOLLOWING RIGHT KNEE JOINT REPLACEMENT, INCLUDING PRECAUTIONS, SIGNS AND SYMPTOMS OF POST-OP COMPLICATIONS, PAIN MANAGEMENT TECHNIQUES, AND INCISION SITE CARE. [code = SKILLED NURSE TO INSTRUCT PATIENT/CAREGIVER ON AFTERCARE FOLLOWING RIGHT KNEE JOINT REPLACEMENT, INCLUDING PRECAUTIONS, SIGNS AND SYMPTOMS OF POST-OP COMPLICATIONS, PAIN MANAGEMENT TECHNIQUES, AND INCISION SITE CARE.] Future Scheduled Test SKILLED NU RSE FOR O/A AND SKILLED TEACHING RELATED TO SIGNS AND SYMPTOMS OF INFECTION AND INFECTION CONTROL MEASURES. [code = SKILLED NURSE FOR O/A AND SKILLED TEACHING RELATED TO SIGNS AND SYMPTOMS OF INFECTION AND INFECTION CONTROL MEASURES.] Future Scheduled Test SKILLED NU RSE TO PERFORM WOUND VAC DRESSING CHANGE USING ASEPTIC TECHNIQUE. SKILLED NURSE TO CLEANSE SURGICAL WOUND TO RIGHT KNEE TO WITH NORMAL SALINE. PAT DRY WITH GAUZE. PREPARE PERIWOUND WITH SKIN PREP AND WINDOW PANE WOUND EDGES/PERIWOUND WITH TRANSPARENT DRAPE, FILL ENTIRE CAVITY WITH MOORE FOAM VAC FOAM. APPLY TUBING AND COVER WITH TRANSPARENT DRAPE. APPLY WOUND VAC DEVICE AT 150 MMHG CONTINUOUS. CHANGE DRESSING EVERY 3 TIMES PER WEEK. MAY USE WET TO DRY DRESSING FOR WOUND VAC MALFUNCTION OF GREATER THAN 2 HOURS. PATIENT/CAREGIVER OR SKILLED NURSE TO REMOVE WOUND VAC, CLEANSE WITH NORMAL SALINE, PAT DRY WITH GAUZE, APPLY SALINE SOAKED GAUZE, THEN COVER WITH DRY GAUZE OR ABD AND SECURE WITH TAPE, TO BE COMPLETED DAILY UNTIL WOUND VAC RE-APPLIED. [code = SKILLED NURSE TO PERFORM WOUND VAC DRESSING CHANGE USING ASEPTIC TECHNIQUE. SKILLED NURSE TO CLEANSE SURGICAL WOUND TO RIGHT KNEE TO WITH NORMAL SALINE. PAT DRY WITH GAUZE. PREPARE PERIWOUND WITH SKIN PREP AND WINDOW PANE WOUND EDGES/PERIWOUND WITH TRANSPARENT DRAPE, FILL ENTIRE CAVITY WITH MOORE FOAM VAC FOAM. APPLY TUBING AND COVER WITH TRANSPARENT DRAPE. APPLY WOUND VAC DEVICE AT 150 MMHG CONTINUOUS. CHANGE DRESSING EVERY 3 TIMES PER WEEK. MAY USE WET TO DRY DRESSING FOR WOUND VAC MALFUNCTION OF GREATER THAN 2 HOURS. PATIENT/CAREGIVER OR SKILLED NURSE TO REMOVE WOUND VAC, CLEANSE WITH NORMAL SALINE, PAT DRY WITH GAUZE, APPLY SALINE SOAKED GAUZE, THEN COVER WITH DRY GAUZE OR ABD AND SECURE WITH TAPE, TO BE COMPLETED DAILY UNTIL WOUND VAC RE-APPLIED.] Future Scheduled Test PHYSICAL T HERAPIST TO EVALUATE PATIENT FOR EVALUATION [code = PHYSICAL THERAPIST TO EVALUATE PATIENT FOR EVALUATION] Future Scheduled Test SKILLED NU RSE FOR O/A AND SKILLED TEACHING RELATED TO R TKA SURGICAL WOUND DEHISCENCE. [code = SKILLED NURSE FOR O/A AND SKILLED TEACHING RELATED TO R TKA SURGICAL WOUND DEHISCENCE.] Future Scheduled Test SKILLED NU RSE TO INSTRUCT PATIENT/CAREGIVER ON PREVENTION OF SEPSIS, AND SIGNS AND SYMPTOMS OF SEPSIS TO REPORT. [code = SKILLED NURSE TO INSTRUCT PATIENT/CAREGIVER ON PREVENTION OF SEPSIS, AND SIGNS AND SYMPTOMS OF SEPSIS TO REPORT.] Future Scheduled Test PATIENT ESTRADA S A [...] RELATED TO DISCHARGE PLANNING.] Future Scheduled Test SKILLED NU RSE TO PERFORM ENVIRONMENTAL SAFETY RISK ASSESSMENT AND FALL RISK ASSESSMENT AND PROVIDE INSTRUCTION TO IMPLEMENT ENVIRONMENTAL SAFETY AND FALL PREVENTION STRATEGIES THROUGHOUT THE CERTIFICATION PERIOD. SKILLED NURSE WILL MAINTAIN SITUATIONAL AWARENESS AND WILL NOTIFY CLINICAL MORTGAGE OR LOAN UNDERWRITER AND PHYSICIAN/PROVIDER WITH ANY CHANGE IN CONDITION. [code = SKILLED NURSE TO PERFORM ENVIRONMENTAL SAFETY RISK ASSESSMENT AND FALL RISK ASSESSMENT AND PROVIDE INSTRUCTION TO IMPLEMENT ENVIRONMENTAL SAFETY AND FALL PREVENTION STRATEGIES THROUGHOUT THE CERTIFICATION PERIOD. SKILLED NURSE WILL MAINTAIN SITUATIONAL AWARENESS AND WILL NOTIFY CLINICAL MORTGAGE OR LOAN UNDERWRITER AND PHYSICIAN/PROVIDER WITH ANY CHANGE IN CONDITION.] [...] TO PREVENT PRESSURE ULCERS.] Future Scheduled Test SKILLED NU RSE TO [...] PHYSICIAN/PROVIDER OF ANY CONCERNS.] Future Scheduled Test PHYSICAL T HERAPIST TO EVALUATE PATIENT SECONDARY TO FUNCTIONAL DEFICITS/SAFETY CONCERNS. PHYSICAL THERAPY TO ESTABLISH /UPGRADE/DOWNGRADE THERAPEUTIC EXERCISE PROGRAM AND INSTRUCT PATIENT/CAREGIVER ON EXERCISE PRECAUTIONS WITH WRITTEN HOME PROGRAM. MAY INCLUDE PROM, AAROM, AROM, RROM APPROPRIATE TO IMPROVE FUNCTIONAL STRENGTH AND RANGE OF MOTION. PHYSICAL THERAPY TO INSTRUCT PATIENT/CAREGIVER ON BED MOBILITY TECHNIQUES TO IMPROVE PATIENT MOBILITY AND POSITIONING TECHNIQUES IN ORDER TO INCREASE PATIENTS COMFORT AND DECREASE RISK OF SKIN BREAKDOWN. PHYSICAL THERAPY TO INSTRUCT PATIENT/CAREGIVER ON SAFE TRANSFER TECHNIQUES USING PROPER BODY MECHANICS AND EQUIPMENT. PHYSICAL THERAPY TO INSTRUCT PATIENT/CAREGIVER ON GAIT TRAINING TECHNIQUES USING APPROPRIATE ASSISTIVE DEVICE, PROPER BODY MECHANICS TO IMPROVE MOBILITY, AND PREVENT INJURY OF PATIENT AND/OR CAREGIVER. PHYSICAL THERAPY TO INSTRUCT PATIENT/CAREGIVER ON BALANCE AND BALANCE STRATEGIES TO IMPROVE SAFE MOBILITY AND REDUCE RISK FOR FALL AND INJURY PHYSICAL THERAPIST TO ASSESS BEST PRACTICE INTERVENTIONS TO ASSIST PATIENTS TO IMPROVE OR STABILIZE MEDICAL STATUS AND PREVENT RE-HOSPITALIZATION. MEASURES INCLUDING REVIEW AND IDENTIFICATION OF CONCERNS FOR THE FOLLOWING AREAS: DRUG REGIMEN, ENVIRONMENTAL SAFETY ISSUES AND FALLS, PRESSURE ULCERS, PAIN, AND DISEASE MANAGEMENT. [code = PHYSICAL THERAPIST TO EVALUATE PATIENT SECONDARY TO FUNCTIONAL DEFICITS/SAFETY CONCERNS. PHYSICAL THERAPY TO ESTABLISH /UPGRADE/DOWNGRADE THERAPEUTIC EXERCISE PROGRAM AND INSTRUCT PATIENT/CAREGIVER ON EXERCISE PRECAUTIONS WITH WRITTEN HOME PROGRAM. MAY INCLUDE PROM, AAROM, AROM, RROM APPROPRIATE TO IMPROVE FUNCTIONAL STRENGTH AND RANGE OF MOTION. PHYSICAL THERAPY TO INSTRUCT PATIENT/CAREGIVER ON BED MOBILITY TECHNIQUES TO IMPROVE PATIENT MOBILITY AND POSITIONING TECHNIQUES IN ORDER TO INCREASE PATIENTS COMFORT AND DECREASE RISK OF SKIN BREAKDOWN. PHYSICAL THERAPY TO INSTRUCT PATIENT/CAREGIVER ON SAFE TRANSFER TECHNIQUES USING PROPER BODY MECHANICS AND EQUIPMENT. PHYSICAL THERAPY TO INSTRUCT PATIENT/CAREGIVER ON GAIT TRAINING TECHNIQUES USING APPROPRIATE ASSISTIVE DEVICE, PROPER BODY MECHANICS TO IMPROVE MOBILITY, AND PREVENT INJURY OF PATIENT AND/OR CAREGIVER. PHYSICAL THERAPY TO INSTRUCT PATIENT/CAREGIVER ON BALANCE AND BALANCE STRATEGIES TO IMPROVE SAFE MOBILITY AND REDUCE RISK FOR FALL AND INJURY PHYSICAL THERAPIST TO ASSESS BEST PRACTICE INTERVENTIONS TO ASSIST PATIENTS TO IMPROVE OR STABILIZE MEDICAL STATUS AND PREVENT RE-HOSPITALIZATION. MEASURES INCLUDING REVIEW AND IDENTIFICATION OF CONCERNS FOR THE FOLLOWING AREAS: DRUG REGIMEN, ENVIRONMENTAL SAFETY ISSUES AND FALLS, PRESSURE ULCERS, PAIN, AND DISEASE MANAGEMENT. ] Goal 2024-12-10 Patient Goal - TO HEAL UP Goal Patient Goal - TO HEAL UP Goal Provider Goal - A PLAN OF CARE WILL BE ESTABLISHED THAT MEETS PATIENT'S RESIDENTIAL NEEDS AND INCLUDES PATIENT GOAL FOR HOME HEALTH. Goal Provider Goal - ADDITIONAL ORDERS WILL BE RECEIVED FROM ALTERNATE PHYSICIAN IN A TIMELY MANNER THROUGHOUT THE CERTIFICATION PERIOD. Goal Provider Goal - PATIENT/CAREGIVER WILL VERBALIZE/DEMONSTRATE MANAGEMENT OF AFTERCARE FOLLOWING RIGHT KNEE JOINT REPLACEMENT INCLUDING SIGNS AND SYMPTOMS TO REPORT AND METHODS TO PREVENT POST-OP COMPLICATIONS BY END OF CERTIFICATION PERIOD. Goal Provider Goal - PATIENT/CAREGIVER WILL VERBALIZE/DEMONSTRATE UNDERSTANDING OF S/S OF INFECTION AND INFECTION CONTROL MEASURES. SIGNS AND SYMPTOMS OF INFECTION WILL BE IDENTIFIED AND PHYSICIAN NOTIFIED FOR PROMPT INTERVENTION THROUGHOUT THE CERTIFICATION PERIOD. Goal Provider Goal - PATIENT WILL DEMONSTRATE IMPROVED WOUND STATUS EVIDENCED BY DECREASE IN SIZE/DRAINAGE OF WOUND, ABSENCE OF INFECTION, AND DECREASED PAIN A RESULT OF ORDERED WOUND VAC THERAPY BY THE END OF THE CERTIFICATION PERIOD Goal Provider Goal - A PHYSICAL THERAPY EVALUATION TO BE COMPLETED WITH RECOMMENDATIONS AND/OR WRITTEN PLAN OF TREATMENT ESTABLISHED FOR PHYSICIANS SIGNATURE. Goal Provider Goal - PATIENT/CAREGIVER WILL VERBALIZE/DEMONSTRATE UNDERSTANDING OF TEACHING RELATED TO R TKA SURGICAL WOUND DEHISCENCE BY END OF CERTIFICATION PERIOD. Goal Provider Goal - PATIENT WILL BE FREE FROM INFECTION AND PATIENT/CAREGIVER WILL VERBALIZE UNDERSTANDING OF SIGNS AND SYMPTOMS AND METHODS TO PREVENT SEPSIS BY END OF THE EPISODE. Goal Provider Goal - PATIENT WILL HAVE SUPPORT MEASURES ESTABLISHED TO PREVENT HOSPITALIZATION AND ED USE AND PATIENT/CAREGIVER WILL VERBALIZE/DEMONSTRATE METHODS TO REDUCE AVOIDABLE HOSPITALIZATION AND ED USE BY END OF EPISODE. Goal Provider Goal - PATIENT/CAREGIVER WILL VERBALIZE UNDERSTANDING OF DISCHARGE PLANNING INSTRUCTIONS BY DATE OF DISCHARGE. Goal Provider Goal - PATIENT/CAREGIVER WILL VERBALIZE/DEMONSTRATE [...] OF THE EPISODE. Goal Provider Goal - PATIENT/CAREGIVER WILL VERBALIZE UNDERSTANDING OF EDUCATION PROVIDED ON MEDICATIONS BY THE END OF THE CERTIFICATION PERIOD. Goal Provider Goal - PHYSICAL THERAPY EVALUATION TO BE COMPLETED WITH RECOMMENDATIONS AND/OR WRITTEN TREATMENT PLAN OF CARE ESTABLISHED FOR THE PHYSICIANS SIGNATURE PATIENT/CAREGIVER WILL PERFORM THERAPEUTIC EXERCISE/S AND DEMONSTRATE PARTICIPATION IN A HOME PROGRAM. PATIENT/CAREGIVER WILL DEMONSTRATE IMPROVED BED MOBILITY TECHNIQUES. PATIENT/CAREGIVER WILL DEMONSTRATE SAFE TRANSFERS USING APPROPRIATE ASSISTIVE DEVICE, BODY MECHANICS AND EQUIPMENT. PATIENT/CAREGIVER WILL DEMONSTRATE IMPROVED GAIT TECHNIQUES TO MINIMIZE RISK OF INJURY. PATIENT/CAREGIVER WILL DEMONSTRATE IMPROVED BALANCE AND REDUCE THE RISK OF FALLS AND INJURY. PATIENT/CAREGIVER VERBALIZES UNDERSTANDING OF THE INITIAL BEST PRACTICE RECOMMENDATIONS. PHYSICIAN TO BE NOTIFIED APPROPRIATE FOR ANY CHANGES OR COMPLICATIONS THROUGHOUT THE CERTIFICATION PERIOD. Progress Notes Progress Notes <paragraph>[Visit Date: 2024 by TONO TESFAYE LPN]:</paragraph><paragraph>ELLIS WAS SEEN TODAY FOR ROUTINE NURSING VISIT WITH WOUND VAC PLACEMENT. SHE WAS SITTING IN HER CHAIR UPON NURSE ARRIVAL. SHE WAS ALERT AND ORIENTED X4, PLEASANT AND COOPERATIVE WITH CARE THIS VISIT. SHE DENIED ANY FALLS, ER VISITS OR CHANGES IN MEDICATION SINCE LAST RESIDENTIAL VISIT. SHE REMAINS HOMEBOUND DUE TO LIMITED MOBILITY, HIGH FALL RISK AND NEEDING ASSISTANCE TO LEAVE THE HOME SAFELY. ALL VITAL SIGNS WERE OBTAINED AND WITHIN NORMAL LIMITS. HEART RATE AND RHYTHM REGULAR. LUNGS CLEAR BILATERALLY UPON AUSCULTATION. SHE DENIED ANY CHEST PAIN, DIZZINESS OR PALPITATIONS. NO SHORTNESS OF BREATH NOTED. ABDOMEN WAS SOFT AND NONTENDER. BOWEL SOUNDS ACTIVE. SHE PLACED A WET-TO-DRY ON HER WOUND LAST NIGHT DUE TO THE WOUND VAC LEAKING. LARGE AMOUNT OF PURULENT DRAINAGE NOTED WHEN DRESSING WAS REMOVED. USING ASEPTIC TECHNIQUE, WOUND WAS CLEANED OUT BEFORE PUTTING THE WOUND VAC BACK ON. SHE STATES WHEN SHE DOES A WET-TO-DRY THE WOUND CAVITY FILLS WITH BLOOD CLOTS AND WHATEVER ELSE FROM THE INSIDE OF HER KNEE SO THAT NEEDED CLEANED OUT BEFORE I COULD PUT THE 1 PIECE OF WHITE FOAM IN. SHE IS SEEING INFECTIOUS DISEASE YESTERDAY AND THEY TOLD HER THAT SHE HAS ANOTHER BACTERIAL INFECTION INSIDE THERE. SHE GOT AN ORDER FOR LABS WHICH WERE PUT IN AND WILL BE GOTTEN FROM THE NURSE ON FRIDAY. NEW WOUND VAC WAS APPLIED AND SHE TOLERATED THIS WELL WITHOUT COMPLAINTS. SHE GOES TO SEE THE PLASTIC SURGEON FOR HER MUSCLE FLAP ON FRIDAY. SHE IS REQUESTING A NURSE COME TO SEE HER AFTERWARDS TO PUT THE WOUND VAC ON AGAIN. EMAIL WAS SENT TO EKATERINA GRAYSON WHO WILL BE SEEING HER FRIDAY. CALENDAR REVIEWED REGARDING NEXT VISIT. SHE KNOWS TO CALL [facility] FIRST WITH ANY QUESTIONS, CONCERNS OR CHANGES IN CONDITION.</paragraph> Encounters Start Date/Time End Date/Time Encounter Type Admission Type Attending [facility] Care Department Encounter ID Discharge Date Discharge Status Discharge Condition Discharge Reason Percent Goals Met 2024-11-24 00:00:00 2025-01-22 00:00:00 Outpatient NEW ADMISSION [facility] [id number] 72.73
--- OUTSIDE RECORDS SUMMARY | 2025-01-21 15:44 | XMS_ITS | Encounter Summary ---
Author Organization [facility] Facility Care Team Providers Care Manager Property Name Role Phone Harry Jorgensen MD Primary Care Provider + Truman Moody MD Unavailable [phone] Michael Quiros MD Unavailable [phone] Mohan Rico MD Unavailable [phone] Betty Calvin Unavailable [phone] Sybil Alex [facility] Unavailable Unavailable Vitaliy Alcazar MD Unavailable [phone] Rivka Coello [facility] Unavailable Unavailable Carol Sainz RN Unavailable Unavailable Sybil Alex [facility] Unavailable Unavailable Encounter Details Date Type Department Care Team (Latest Contact Info) Description 12/16/2016 Orders Only [facility] CLINCONV ProviderKrzysztof MD [address] [place] [address] Social History Tobacco Use Types Packs/Day Years Used Date Smoking Tobacco: Never Alcohol Use Standard Drinks/Week Comments No 0 (1 standard drink = 0.6 oz pur e alcohol) Comments Unknown Sex and Gender Information Value Date Recorded Sex Assigned at Not on file 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 Gender Identity Female 01/15/2021 9:27 PM CDT Sexual Orientation Straight 01/15/2021 9: 27 PM CDT documented as of this encounter Plan of Treatment Upcoming Encounters Date Type Department Care Team (Latest Contact Info) Description 01/27/2025 7:30 AM CDT Hospital Encounter [facility] Operating Room [address] [place] [address] [place] [address] [facility] [address], [place] [id number] 01/27/2025 7:30 AM CDT - 01/27/2025 9:00 AM CDT Surgery [facility] Operating Room [id number] [place] [address] [place] [address] [facility] [address], [place] [id number] DEBRIDEMENT LEFT KNEE WOUND WITH WOUND VAC [...] documented as of this encounter Care Teams Manager Property Relationship Specialty Start Date End Date Harry Jorgensen MD PCP - General 09/06/16 Vitaliy Alcazar MD [address] [facility] [address] [place] [address] [place] [address] PCP - Home Infusion Attending Infectious Diseases 11/10/24 Truman Moody MD Scouring Train Operator Cardiology 02/01/19 09/16/24 Mcihael Quiros MD [address] [place] [address] Referring Physician Interventional Cardiology 09/17/24 Mohan Rico MD [address] [facility] [address] [place] [address] [place] [address] Consulting Physician Pulmonary Disease 09/17/24 Betty Calvin PA [address] [facility] [address] [place] [address] [place] [address] Physician Food Mixer Assembler Orthopedic Surgery 10/08/24 Sybil Alex, [facility] Pharmacist Pharmacy 10/29/24 11/15/24 Rivka Coello [facility] Pharmacist Pharmacy 11/15/24 11/23/24 Caorl Sainz, RN Registered Nurse 12/02/24 Sybil Alex, [facility] Pharmacist Pharmacy 12/08/24 12/24/24 documented as of this encounter
--- OUTSIDE RECORDS SUMMARY | 2025-01-21 15:44 | XMS_ITS | Encounter Summary ---
Author Organization [facility] Facility Care Team Providers Care Electronic System Engineer Name Role Phone Harry Jorgensen MD Primary Care Provider + Truman Moody MD Unavailable [phone] Michael Quiros MD Unavailable [phone] Mohan Rico MD Unavailable [phone] Betty Calvin Unavailable [phone] Sybil Alex [facility] Unavailable Unavailable Vitaliy Alcazar MD Unavailable [phone] Rivka Coello [facility] Unavailable Unavailable Carol Sainz RN Unavailable Unavailable Sybil Alex [facility] Unavailable Unavailable Encounter Details Date Type Department Care Team (Latest Contact Info) Description 04/18/2017 Orders Only [facility] CLINCONV ProviderKrzysztof MD [address] [place] [address] Social History Tobacco Use Types Packs/Day Years Used Date Smoking Tobacco: Never Alcohol Use Standard Drinks/Week Comments No 0 (1 standard drink = 0.6 oz pur e alcohol) Comments Unknown Sex and Gender Information Value Date Recorded Sex Assigned at Not on file Legal 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 Female 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 Gender Identity Female 01/15/2021 9:27 PM CDT Sexual Orientation Straight 01/15/2021 9: 27 PM CDT documented as of this encounter Plan of Treatment Upcoming Encounters Date Type Department Care Team (Latest Contact Info) Description 01/27/2025 7:30 AM CDT Hospital Encounter [facility] Operating Room [address] [place] [address] [place] [address] [facility] [address], [place] [id number] 01/27/2025 7:30 AM CDT - 01/27/2025 9:00 AM CDT Surgery [facility] Operating Room [id number] [place] [address] [place] [address] [facility] [address], [place] [id number] DEBRIDEMENT LEFT KNEE WOUND WITH WOUND VAC PLACEMENT Scheduled Procedures Name Priority Associated Diagnoses Date/Ti me DEBRIDEMENT WOUND Open wound of left knee, initial encounter Other complications of procedures, not elsewhere classified, initial encounter 01/27/2025 7:30 AM CDT documented as of this encounter Procedures Procedure Name Priority Date/Time Associated Diagnosis Comments SCAN - LABS 04/18/2017 12:00 AM ELECTRICITY TRADING ANALYST documented in this encounter Results * SCAN - LABS (04/18/2017 12:00 AM ELECTRICITY TRADING ANALYST) Narrative 04/18/2017 12:00 AM ELECTRICITY TRADING ANALYST Ordered by an unspecified provider. us Historical [...] documented as of this encounter Care Teams Electronic System Engineer Relationship Specialty Start Date End Date Harry Jorgensen MD PCP - General 09/06/16 Vitaliy Alcazar MD [address] [facility] [address] [place] [address] [place] [address] PCP - Home Infusion Attending Infectious Diseases 11/10/24 Truman Moody MD Change Management Expert Cardiology 02/01/19 09/16/24 Michael Quiros MD [address] [place] [address] Referring Physician Interventional Cardiology 09/17/24 Mohan Rico MD [address] [facility] [address] [place] [address] [place] [address] Consulting Physician Pulmonary Disease 09/17/24 Betty Calvin, PA [address] [facility] [address] [place] [address] [place] [address] Physician Chemical Waste Management Technician Orthopedic Surgery 10/08/24 Sybil Alex, [facility] Pharmacist Pharmacy 10/29/24 11/15/24 Rivka Coello, [facility] Pharmacist Pharmacy 11/15/24 11/23/24 Carol Sainz, RN Registered Nurse 12/02/24 Sybil Alex, [facility] Pharmacist Pharmacy 12/08/24 12/24/24 documented as of this encounter
--- OUTSIDE RECORDS SUMMARY | 2025-01-21 15:44 | XMS_ITS | Encounter Summary ---
Author Organization [facility] Facility Care Team Providers Care Swatch Cutter Name Role Phone Harry Jorgensen MD Primary Care Provider + Truman Moody MD Unavailable [phone] Michael Quiros MD Unavailable [phone] Mohan Rico MD Unavailable [phone] Btety Calvin Unavailable [phone] Sybil Alex [facility] Unavailable Unavailable Vitaliy Alcazar MD Unavailable [phone] Rivka Coello [facility] Unavailable Unavailable Carol Sainz RN Unavailable Unavailable Sybil Alex [facility] Unavailable Unavailable Encounter Details Date Type Department Care Team (Latest Contact Info) Description 11/19/2016 Orders Only [facility] CLINCONV ProviderKrzysztof MD [address] [place] [address] Social History Tobacco Use Types Packs/Day Years Used Date Smoking Tobacco: Never Alcohol Use Standard Drinks/Week Comments No 0 (1 standard drink = 0.6 oz pur e alcohol) Comments Unknown Sex and Gender Information Value Date Recorded Sex Assigned at Not on file 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 Gender Identity Female 01/15/2021 9:27 PM CDT Sexual Orientation Straight 01/15/2021 9: 27 PM CDT documented as of this encounter Plan of Treatment Upcoming Encounters Date Type Department Care Team (Latest Contact Info) Description 01/27/2025 7:30 AM CDT Hospital Encounter [facility] Operating Room [address] [place] [address] [place] [address] [facility] [address], [place] [id number] 01/27/2025 7:30 AM CDT - 01/27/2025 9:00 AM CDT Surgery [facility] Operating Room [id number] [place] [address] [place] [address] [facility] [address], [place] [id number] DEBRIDEMENT LEFT KNEE WOUND WITH WOUND VAC [...] documented as of this encounter Care Teams Swatch Cutter Relationship Specialty Start Date End Date Harry Jorgensen MD PCP - General 09/06/16 Vitaliy Alcazar MD [address] [facility] [address] [place] [address] [place] [address] PCP - Home Infusion Attending Infectious Diseases 11/10/24 Truman Moody MD Coin Machine Supervisor Cardiology 02/01/19 09/16/24 Michael Quiros MD [address] [place] [address] Referring Physician Interventional Cardiology 09/17/24 Mohan Rico MD [address] [facility] [address] [place] [address] [place] [address] Consulting Physician Pulmonary Disease 09/17/24 Betty Calvin PA [address] [facility] [address] [place] [address] [place] [address] Physician Respiratory Therapy Aide Orthopedic Surgery 10/08/24 Sybil Alex, [facility] Pharmacist Pharmacy 10/29/24 11/15/24 Rivka Coello [facility] Pharmacist Pharmacy 11/15/24 11/23/24 Carol Sainz, RN Registered Nurse 12/02/24 Sybil Alex, [facility] Pharmacist Pharmacy 12/08/24 12/24/24 documented as of this encounter
--- OUTSIDE RECORDS SUMMARY | 2025-01-21 15:44 | XMS_ITS | Encounter Summary ---
Author Organization [facility] Facility Care Team Providers Care Physical Fitness Teacher Name Role Phone Harry Jorgensen MD Primary Care Provider + Taqueria Sullivan MD Primary Care Provider [phone] Harry Jorgensen MD Primary Care Provider + Truman Moody MD Unavailable [phone] Michael Quiros MD Unavailable [phone] Mohan Rico MD Unavailable [phone] Betty Calvin Unavailable [phone] Sybil Alex [facility] Unavailable Unavailable Vitaliy Alcazar MD Unavailable +[phone] Rivka Coello [facility] Unavailable Unavailable Carol Sainz RN Unavailable Unavailable Sybil Alex [facility] Unavailable Unavailable Encounter Details Date Type Department Care Team (Latest Contact Info) Description 12/15/2015 Orders Only [facility] CLINCONV ProviderKrzysztof MD [address] [place] [address] Social History Tobacco Use Types Packs/Day Years Used Date Smoking Tobacco: Never Alcohol Use Standard Drinks/Week Comments No 0 (1 standard drink = 0.6 oz pur e alcohol) Comments Unknown Sex and Gender Information Value Date Recorded Sex Assigned at Not on file 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 Gender Identity Female 01/15/2021 9:27 PM CDT Sexual Orientation Straight 01/15/2021 9: 27 PM CDT documented as of this encounter Plan of Treatment Upcoming Encounters Date Type Department Care Team (Latest Contact Info) Description 01/27/2025 7:30 AM CDT Hospital Encounter [facility] Operating Room [address] [place] [address] [place] [address] [facility] [address] [address] 01/27/2025 7:30 AM CDT - 01/27/2025 9:00 AM CDT Surgery [facility] Operating Room [address] [place] [address] [place] [address] [facility] [address], [place] [id number] DEBRIDEMENT LEFT KNEE WOUND WITH WOUND VAC [...] documented as of this encounter Care Teams Physical Fitness Teacher Relationship Specialty Start Date End Date Harry Jorgensen MD PCP - General 09/06/16 Taqueria Sullivan MD [address] [address] PCP - General 08/27/16 09/05/16 Harry Jorgensen MD PCP - General 04/21/14 08/26/16 Vitaliy Alcazar MD [address] [facility] [address] [place] [address] [place] [address] PCP - Home Infusion Attending Infectious Diseases 11/10/24 Truman Moody MD [address] [address] Electronic Parts Designer Cardiology 02/01/19 09/16/24 Michael Quiros MD [address] [place] [address] Referring Physician Interventional Cardiology 09/17/24 Mohan Rico MD [address] [facility] [address] [place] [address] [place] [address] Consulting Physician Pulmonary Disease 09/17/24 Betty Calvin PA [address] [facility] [address] [place] [address] [place] [address] Physician Guide Setter Orthopedic Surgery 10/08/24 Sybil Alex, [facility] Pharmacist Pharmacy 10/29/24 11/15/24 Rivka Coello, [facility] Pharmacist Pharmacy 11/15/24 11/23/24 Carol Sainz, RN Registered Nurse 12/02/24 Sybil Alex, [facility] Pharmacist Pharmacy 12/08/24 12/24/24 documented as of this encounter
--- OUTSIDE RECORDS SUMMARY | 2025-01-21 15:44 | XMS_ITS | Encounter Summary ---
Author Organization [facility] Facility Care Team Providers Care Hoof Trimmer Name Role Phone Harry Jorgensen MD Primary Care Provider + Taqueria Sullivan MD Primary Care Provider [phone] Harry Jorgensen MD Primary Care Provider + Truman Moody MD Unavailable [phone] Michael Quiros MD Unavailable [phone] Mohan Rico MD Unavailable +[phone] Betty Calvin Unavailable [phone] Sybil Alex [facility] Unavailable Unavailable Vitaliy Alcazar MD Unavailable [phone] Rivka Coello [facility] Unavailable Unavailable Carol Sainz RN Unavailable Unavailable Sybil Alex [facility] Unavailable Unavailable Encounter Details Date Type Department Care Team (Latest Contact Info) Description 01/18/2016 Orders Only [facility]G CLINCONV ProviderKrzysztof MD [address] [place] [address] Social History Tobacco Use Types Packs/Day Years Used Date Smoking Tobacco: Never Alcohol Use Standard Drinks/Week Comments No 0 (1 standard drink = 0.6 oz pur e alcohol) Comments Unknown Sex and Gender Information Value Date Recorded Sex Assigned at Not on file Legal Sex Female 10:24 AM 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 Gender Identity Female 01/15/2021 9:27 PM CDT Sexual Orientation Straight 01/15/2021 9: 27 PM CDT documented as of this encounter Plan of Treatment Upcoming Encounters Date Type Department Care Team (Latest Contact Info) Description 01/27/2025 7:30 AM CDT Hospital Encounter [facility] Operating Room [address] [place] [address] [place] [address] [facility] [address] [address] 01/27/2025 7:30 AM CDT - 01/27/2025 9:00 AM CDT Surgery [facility] Operating Room [address] [place] [address] [place] [address] [facility] [address], [place] [id number] DEBRIDEMENT LEFT KNEE WOUND WITH WOUND VAC [...] documented as of this encounter Care Teams Hoof Trimmer Relationship Specialty Start Date End Date Harry Jorgensen MD PCP - General 09/06/16 Taqueria Sullivan MD [address] [address] PCP - General 08/27/16 09/05/16 Harry Jorgensen MD PCP - General 04/21/14 08/26/16 Vitaliy Alcazar MD [address] [facility] [address] [place] [address] [place] [address] PCP - Home Infusion Attending Infectious Diseases 11/10/24 Truman Moody MD [address] [address] Repair Service Dispatcher Cardiology 02/01/19 09/16/24 Michael Quiros MD [address] [place] [address] Referring Physician Interventional Cardiology 09/17/24 Mohan Rico MD [address] [facility] [address] [place] [address] [place] [address] Consulting Physician Pulmonary Disease 09/17/24 Betty Calvin PA [address] [facility] [address] [place] [address] [place] [address] Physician Airport Baggage Screener Orthopedic Surgery 10/08/24 Sybil Alex, [facility] Pharmacist Pharmacy 10/29/24 11/15/24 Rivka Coello, [facility] Pharmacist Pharmacy 11/15/24 11/23/24 Carol Sainz, RN Registered Nurse 12/02/24 Sybil Alex, [facility] Pharmacist Pharmacy 12/08/24 12/24/24 documented as of this encounter
--- OUTSIDE RECORDS SUMMARY | 2025-01-21 15:44 | XMS_ITS | Encounter Summary ---
Author Organization [facility] Facility Care Team Providers Care Powdered Sugar Supervisor Name Role Phone Harry Jorgensen MD Primary Care Provider + Truman Moody MD Unavailable [phone] Michael Quiros MD Unavailable [phone] Mohan Rico MD Unavailable [phone] Betty Calvin Unavailable [phone] Sybil Alex [facility] Unavailable Unavailable Vitaliy Alcazar MD Unavailable [phone] Rivka Coello [facility] Unavailable Unavailable Carol Sainz RN Unavailable Unavailable Sybil Alex [facility] Unavailable Unavailable Encounter Details Date Type Department Care Team (Latest Contact Info) Description 01/02/2017 Orders Only [facility]G CLINCONV ProviderKrzysztof MD [address] [place] [address] Social History Tobacco Use Types Packs/Day Years Used Date Smoking Tobacco: Never Alcohol Use Standard Drinks/Week Comments No 0 (1 standard drink = 0.6 oz pur e alcohol) Comments Unknown Sex and Gender Information Value Date Recorded Sex Assigned at Not on file Legal Sex Female 10:24 AM IT TECHNICAL SUPPORT SPECIALIST Gender Identity Female 01/15/2021 9:27 PM CDT Sexual Orientation Straight 01/15/2021 9: 27 PM CDT documented as of this encounter Plan of Treatment Upcoming Encounters Date Type Department Care Team (Latest Contact Info) Description 01/27/2025 7:30 AM CDT Hospital Encounter [facility] Operating Room [address] [place] [address] [place] [address] [facility] [address], [place] [id number] 01/27/2025 7:30 AM CDT - 01/27/2025 9:00 AM CDT Surgery [facility] Operating Room [address] [place] [address] [place] [address] [facility] [address], [place] [id number] DEBRIDEMENT LEFT KNEE WOUND WITH WOUND VAC [...] documented as of this encounter Care Teams Powdered Sugar Supervisor Relationship Specialty Start Date End Date Harry Jorgensen MD PCP - General 09/06/16 Vitaliy Alcazar MD [address] [facility] [address] [place] [address] [place] [address] PCP - Home Infusion Attending Infectious Diseases 11/10/24 Truman Moody MD Industrial Economist Cardiology 02/01/19 09/16/24 Michael Quiros MD [address] [place] [address] Referring Physician Interventional Cardiology 09/17/24 Mohna Rico MD [address] [facility] [address] [place] [address] [place] [address] Consulting Physician Pulmonary Disease 09/17/24 Betty Calvin PA [address] [facility] [address] [place] [address] [place] [address] Physician Grader Patrol Orthopedic Surgery 10/08/24 Sybil Alex, [facility] Pharmacist Pharmacy 10/29/24 11/15/24 Rivka Coello [facility] Pharmacist Pharmacy 11/15/24 11/23/24 Carol Sainz, RN Registered Nurse 12/02/24 Sybil Alex, [facility] Pharmacist Pharmacy 12/08/24 12/24/24 documented as of this encounter
--- OUTSIDE RECORDS SUMMARY | 2025-01-21 15:44 | XMS_ITS | Encounter Summary ---
Author Organization [facility] Facility Care Team Providers Care Tubular Stock Glass Bulb Machine Former Name Role Phone Harry Jorgensen MD Primary Care Provider + Taqueria Sullivan MD Primary Care Provider [phone] Harry Jorgensen MD Primary Care Provider + Truman Moody MD Unavailable [phone] Michael Quiros MD Unavailable [phone] Mohan Rico MD Unavailable [phone] Betty Calvin Unavailable [phone] Sybil Alex [facility] Unavailable Unavailable Vitaliy Alcazar MD Unavailable [phone] Rvika Coello [facility] Unavailable Unavailable Carol Sainz RN Unavailable Unavailable Sybil Alex [facility] Unavailable Unavailable Encounter Details Date Type Department Care Team (Latest Contact Info) Description 12/06/2015 Orders Only [facility]G CLINCONV ProviderKrzysztof MD [address] [place] [address] Social History Tobacco Use Types Packs/Day Years Used Date Smoking Tobacco: Never Alcohol Use Standard Drinks/Week Comments No 0 (1 standard drink = 0.6 oz pur e alcohol) Comments Unknown Sex and Gender Information Value Date Recorded Sex Assigned at Not on file Legal Sex Female 10:24 AM CLINICAL 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 Gender Identity Female 01/15/2021 9:27 PM CDT Sexual Orientation Straight 01/15/2021 9: 27 PM CDT documented as of this encounter Plan of Treatment Upcoming Encounters Date Type Department Care Team (Latest Contact Info) Description 01/27/2025 7:30 AM CDT Hospital Encounter [facility] Operating Room [address] [place] [address] [place] [address] [facility] [address] [address] 01/27/2025 7:30 AM CDT - 01/27/2025 9:00 AM CDT Surgery [facility] Operating Room [address] [place] [address] [place] [address] [facility] [address], [place] [id number] DEBRIDEMENT LEFT KNEE WOUND WITH WOUND VAC [...] Ordered by an unspecified provider. Historical Provider MD [facility] PROCE DURES Final Result documented [...] documented as of this encounter Care Teams Tubular Stock Glass Bulb Machine Former Relationship Specialty Start Date End Date Harry Jorgensen MD PCP - General 09/06/16 Taqueria Sullivan MD [address] [address] PCP - General 08/27/16 09/05/16 Harry Jorgensen MD PCP - General 04/21/14 08/26/16 Vitaliy Alcazar MD [address] [facility] [address] [place] [address] [place] [address] PCP - Home Infusion Attending Infectious Diseases 11/10/24 Truman Moody MD [address] [address] Case Repairer Cardiology 02/01/19 09/16/24 Michael Quiros MD [address] [place] [address] Referring Physician Interventional Cardiology 09/17/24 Mohan Rico MD [address] [facility] [address] [place] [address] [place] [address] Consulting Physician Pulmonary Disease 09/17/24 Betty Calvin PA [address] [facility] [address] [place] [place] [address] Physician Crew Attendant Orthopedic Surgery 10/08/24 Sybil Alex, [facility] Pharmacist Pharmacy 10/29/24 11/15/24 Rivka Coello, [facility] Pharmacist Pharmacy 11/15/24 11/23/24 Carol Sainz, RN Registered Nurse 12/02/24 Sybil Alex, [facility] Pharmacist Pharmacy 12/08/24 12/24/24 documented as of this encounter
--- OUTSIDE RECORDS SUMMARY | 2025-01-21 15:44 | XMS_ITS | Encounter Summary ---
Author Organization [facility] Facility Care Team Providers Care Sander Machine Name Role Phone Harry Jorgensen MD Primary Care Provider + Taqueria Sullivan MD Primary Care Provider [phone] Harry Jorgensen MD Primary Care Provider + Truman Moody MD Unavailable [phone] Michael Quiros MD Unavailable [phone] Mohan Rico MD Unavailable [phone] Betty Calvin Unavailable [phone] Sybil Alex [facility] Unavailable Unavailable Vitaliy Alcazar MD Unavailable [phone] Rivka Coello [facility] Unavailable Unavailable Carol Sainz RN Unavailable Unavailable Sybil Alex [facility] Unavailable Unavailable Encounter Details Date Type Department Care Team (Latest Contact Info) Description 12/14/2015 Orders Only [facility]G CLINCONV ProviderKrzysztof MD [address] [place] [address] Social History Tobacco Use Types Packs/Day Years Used Date Smoking Tobacco: Never Alcohol Use Standard Drinks/Week Comments No 0 (1 standard drink = 0.6 oz pur e alcohol) Comments Unknown Sex and Gender Information Value Date Recorded Sex Assigned at Not on file Legal Sex Female 10:24 AM SPICE FUMIGATOR Gender Identity Female 01/15/2021 9:27 PM CDT Sexual Orientation Straight 01/15/2021 9: 27 PM CDT documented as of this encounter Plan of Treatment Upcoming Encounters Date Type Department Care Team (Latest Contact Info) Description 01/27/2025 7:30 AM CDT Hospital Encounter [facility] Operating Room [address] [place] [address] [place] [address] [facility] [address] [address] 01/27/2025 7:30 AM CDT - 01/27/2025 9:00 AM CDT Surgery [facility] Operating Room [address] [place] [address] [place] [address] [facility] [address], [place] [phone] DEBRIDEMENT LEFT KNEE WOUND WITH WOUND VAC [...] documented as of this encounter Care Teams Sander Machine Relationship Specialty Start Date End Date Harry Jorgensen MD PCP - General 09/06/16 Taqueria Sullivan MD [address] [address] PCP - General 08/27/16 09/05/16 Harry Jorgensen MD PCP - General 04/21/14 08/26/16 Vitaliy Alcazar MD [address] [facility] [address] [place] [address] [place] [address] PCP - Home Infusion Attending Infectious Diseases 11/10/24 Truman Moody MD [address] [address] Gum Remover Cardiology 02/01/19 09/16/24 Michael Quiros MD [address] [place] [address] Referring Physician Interventional Cardiology 09/17/24 Mohan Rico MD [address] [facility] [address] [place] [address] [place] [address] Consulting Physician Pulmonary Disease 09/17/24 Betty Calvin PA [address] [facility] [address] [place] [address] [place] [address] Physician Cotton Sampler Orthopedic Surgery 10/08/24 Sybil Alex, [facility] Pharmacist Pharmacy 10/29/24 11/15/24 Rivka Coello, [facility] Pharmacist Pharmacy 11/15/24 11/23/24 Carol Sainz, RN Registered Nurse 12/02/24 Sybil Alex, [facility] Pharmacist Pharmacy 12/08/24 12/24/24 documented as of this encounter
--- OUTSIDE RECORDS SUMMARY | 2025-01-21 15:45 | XMS_ITS | Encounter Summary ---
Author Organization [facility] Facility Care Team Providers Care Director Of Outpatient Services Name Role Phone Harry Jorgensen MD Primary Care Provider + Taqueria Sullivan MD Primary Care Provider [phone] Harry Jorgensen MD Primary Care Provider + Truman Moody MD Unavailable [phone] Michael Quiros MD Unavailable [phone] Mohan Rico MD Unavailable [phone] Betty Calvin Unavailable [phone] Sybil Alex [facility] Unavailable Unavailable Vitaliy Alcazar MD Unavailable [phone] Rivka Coello [facility] Unavailable Unavailable Carol Sainz RN Unavailable Unavailable Sybil Alex [facility] Unavailable Unavailable Encounter Details Date Type Department Care Team (Latest Contact Info) Description 10/27/2015 Orders Only [facility]G CLINCONV ProviderKrzysztof MD [address] [place] [address] Social History Tobacco Use Types Packs/Day Years Used Date Smoking Tobacco: Never Alcohol Use Standard Drinks/Week Comments No 0 (1 standard drink = 0.6 oz pur e alcohol) Comments Unknown Sex and Gender Information Value Date Recorded Sex Assigned at Not on file Legal Sex Female 10:24 AM CALL CENTER 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 Gender Identity Female 01/15/2021 9:27 PM CDT Sexual Orientation Straight 01/15/2021 9: 27 PM CDT documented as of this encounter Plan of Treatment Upcoming Encounters Date Type Department Care Team (Latest Contact Info) Description 01/27/2025 7:30 AM CDT Hospital Encounter [facility] Operating Room [address] [place] [address] [place] [address] [facility] [address], [place] [address] 01/27/2025 7:30 AM CDT - 01/27/2025 9:00 AM CDT Surgery [facility] Operating Room [address] [place] [address] [place] [address] [facility] [address], [place] [phone] DEBRIDEMENT LEFT KNEE WOUND WITH WOUND VAC [...] as of this encounter Care Teams Director Of Outpatient Services Relationship Specialty Start Date End Date Harry Jorgensen MD PCP - General 09/06/16 Taqueria Sullivan MD [address] [address] PCP - General 08/27/16 09/05/16 Harry Jorgensen MD PCP - General 04/21/14 08/26/16 Vitaliy Alcazar MD [address] [facility] [address] [place] [address] [place] [address] PCP - Home Infusion Attending Infectious Diseases 11/10/24 Truman Moody MD [address] [address] Terrazzo Mechanic Cardiology 02/01/19 09/16/24 Michael Quiros MD [address] [place] [address] Referring Physician Interventional Cardiology 09/17/24 Mohan Rico MD [address] [facility] [address] [place] [address] [place] [address] Consulting Physician Pulmonary Disease 09/17/24 Betty Calvin PA [address] [facility] [address] [place] [address] [place] [address] Physician Sewer Pipe Press Operator Orthopedic Surgery 10/08/24 Sybil Alex, [facility] Pharmacist Pharmacy 10/29/24 11/15/24 Rivka Coello, [facility] Pharmacist Pharmacy 11/15/24 11/23/24 Carol Sainz, RN Registered Nurse 12/02/24 Sybil Alex, [facility] Pharmacist Pharmacy 12/08/24 12/24/24 documented as of this encounter
--- OUTSIDE RECORDS SUMMARY | 2025-01-21 15:45 | XMS_ITS | Encounter Summary ---
Author Organization [facility] Facility Care Team Providers Care Hospice Spiritual Care Coordinator Name Role Phone Harry Jorgensen MD Primary Care Provider + Taqueria Sullivan MD Primary Care Provider [phone] Harry Jorgensen MD Primary Care Provider + Truman Moody MD Unavailable [phone] Michael Quiros MD Unavailable [phone] Mohan Rico MD Unavailable [phone] Betty Calvin Unavailable [phone] Sybil Alex [facility] Unavailable Unavailable Vitaliy Alcazar MD Unavailable [phone] Rivka Coello [facility] Unavailable Unavailable Carol Sainz RN Unavailable Unavailable Sybil Alex [facility] Unavailable Unavailable Encounter Details Date Type Department Care Team (Latest Contact Info) Description 07/17/2016 Orders Only [facility]G CLINCONV ProviderKrzysztof MD [address] [place] [address] Social History Tobacco Use Types Packs/Day Years Used Date Smoking Tobacco: Never Alcohol Use Standard Drinks/Week Comments No 0 (1 standard drink = 0.6 oz pur e alcohol) Comments Unknown Sex and Gender Information Value Date Recorded Sex Assigned at Not on file Legal Sex Female 10:24 AM 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 [address] [address] 01/27/2025 7:30 AM CDT - 01/27/2025 9:00 AM CDT Surgery [facility] Operating Room [address] [place] [address] [place] [address] [facility] [address], [place] [id number] DEBRIDEMENT LEFT KNEE WOUND WITH WOUND VAC PLACEMENT Scheduled Procedures Name Priority Associated Diagnoses Date/Ti me DEBRIDEMENT WOUND Open wound of left knee, initial encounter Other complications of procedures, not elsewhere classified, initial encounter 01/27/2025 7:30 AM CDT documented as of this encounter Procedures Procedure Name Priority Date/Time Associated Diagnosis Comments CARDIOLOGY REPORT 07/18/2016 12: 00 AM OCEANOLOGY TEACHER documented in this encounter Results * CARDIOLOGY REPORT (07/18/2016 12:00 AM OCEANOLOGY TEACHER) Anatomical Region Laterality Modality Other Narrative 07/18/2016 12:00 AM OCEANOLOGY TEACHER Ordered by an unspecified provider. us Historical [...] documented as of this encounter Care Teams Hospice Spiritual Care Coordinator Relationship Specialty Start Date End Date Harry Jorgensen MD PCP - General 09/06/16 Taqueria Sullivan MD [address] [address] PCP - General 08/27/16 09/05/16 Harry Jorgensen MD PCP - General 04/21/14 08/26/16 Vitaliy Alcazar MD [address] [facility] [address] [place] [address] [place] [address] PCP - Home Infusion Attending Infectious Diseases 11/10/24 Truman Moody MD [address] [address] Job Compositor Cardiology 02/01/19 09/16/24 Michael Quiros MD [address] [address] Referring Physician Interventional Cardiology 09/17/24 Mohan Rico MD [address] [facility] [address] [place] [address] [place] [address] Consulting Physician Pulmonary Disease 09/17/24 Betty Calvin PA [address] [facility] [address] [place] [address] [place] [address] Physician Community Health Worker Orthopedic Surgery 10/08/24 Sybil Alex [facility] Pharmacist Pharmacy 10/29/24 11/15/24 Rivka Coello [facility] Pharmacist Pharmacy 11/15/24 11/23/24 Carol Sainz, RN Registered Nurse 12/02/24 Sybil Alex, [facility] Pharmacist Pharmacy 12/08/24 12/24/24 documented as of this encounter
--- OUTSIDE RECORDS SUMMARY | 2025-01-21 15:45 | XMS_ITS | Encounter Summary ---
Author Organization [facility] Facility Care Team Providers Care Milling Operator Name Role Phone Harry Jorgensen MD Primary Care Provider + Taqueria Sullivan MD Primary Care Provider [phone] Harry Jorgensen MD Primary Care Provider + Truman Moody MD Unavailable [phone] Michael Quiros MD Unavailable [phone] Mohan Rico MD Unavailable [phone] Betty Calvin Unavailable [phone] Sybil Alex [facility] Unavailable Unavailable Vitaliy Alcazar MD Unavailable [phone] Rivka Coello [facility] Unavailable Unavailable Carlo Sainz RN Unavailable Unavailable Sybil Alex [facility] Unavailable Unavailable Encounter Details Date Type Department Care Team (Latest Contact Info) Description 05/20/2016 Orders Only [facility] CLINCONV ProviderKrzysztof MD [address] [place] [address] Social History Tobacco Use Types Packs/Day Years Used Date Smoking Tobacco: Never Alcohol Use Standard Drinks/Week Comments No 0 (1 standard drink = 0.6 oz pur e alcohol) Comments Unknown Sex and Gender Information Value Date Recorded Sex Assigned at Not on file Legal Sex Female 10:24 AM SORTER LAUNDRY ARTICLES Gender Identity Female 01/15/2021 9:27 PM CDT Sexual Orientation Straight 01/15/2021 9: 27 PM CDT documented as of this encounter Plan of Treatment Upcoming Encounters Date Type Department Care Team (Latest Contact Info) Description 01/27/2025 7:30 AM CDT Hospital Encounter [facility] Operating Room [id number] [place] [address] [place] [address] [facility] [address], [place] [address] 01/27/2025 7:30 AM CDT - 01/27/2025 9:00 AM CDT Surgery [facility] Operating Room [id number] [place] [address] [place] [address] [facility] [address], [place] [id number] DEBRIDEMENT LEFT KNEE WOUND WITH WOUND VAC PLACEMENT Scheduled Procedures Name Priority Associated Diagnoses Date/Ti me DEBRIDEMENT WOUND Open wound of left knee, initial encounter Other complications of procedures, not elsewhere classified, initial encounter 01/27/2025 7:30 AM CDT documented as of this encounter Procedures Procedure Name Priority Date/Time Associated Diagnosis Comments SCAN - LABS 05/20/2016 12:00 AM SORTER LAUNDRY ARTICLES documented in this encounter Results * SCAN - LABS (05/20/2016 12:00 AM SORTER LAUNDRY ARTICLES) Narrative 05/20/2016 12:00 AM SORTER LAUNDRY ARTICLES Ordered by an unspecified provider. us Historical [...] documented as of this encounter Care Teams Milling Operator Relationship Specialty Start Date End Date Harry Jorgensen MD PCP - General 09/06/16 Taqueria Sullivan MD [address] [address] PCP - General 08/27/16 09/05/16 Harry Jorgensen MD PCP - General 04/21/14 08/26/16 Vitaliy Alcazar MD [address] [facility] [address] [place] [address] [place] [address] PCP - Home Infusion Attending Infectious Diseases 11/10/24 Truman Moody MD [address] [address] Box Coverer Hand Cardiology 02/01/19 09/16/24 Michael Quiros MD [address] 918170 Referring Physician Interventional Cardiology 09/17/24 Mohan Rico MD [address] [facility] [address] [place] [address] [place] [address] Consulting Physician Pulmonary Disease 09/17/24 Betty Calvin PA [address] [facility] [address] [place] [address] [place] [address] Physician Inside Sales Professional Orthopedic Surgery 10/08/24 Sybil Alex, [facility] Pharmacist Pharmacy 10/29/24 11/15/24 Rivka Coello, [facility] Pharmacist Pharmacy 11/15/24 11/23/24 Carol Sainz, RN Registered Nurse 12/02/24 Sybil Alex, [facility] Pharmacist Pharmacy 12/08/24 12/24/24 documented as of this encounter
--- OUTSIDE RECORDS SUMMARY | 2025-01-21 15:45 | XMS_ITS | Encounter Summary ---
Author Organization [facility] Facility Care Team Providers Care Stenocaptioner Name Role Phone Harry Jorgensen MD Primary Care Provider + Taqueria Sullivan MD Primary Care Provider Harry Jorgensen MD Primary Care Provider + Truman Moody MD Unavailable [phone] Michael Quiros MD Unavailable [phone] Mohan Rico MD Unavailable +[phone] Betty Calvin Unavailable [phone] Sybil Alex [facility] Unavailable Unavailable Vitaliy Alcazar MD Unavailable [phone] Rivka Coello [facility] Unavailable Unavailable Carol Sainz RN Unavailable Unavailable Sybil Alex [facility] Unavailable Unavailable Encounter Details Date Type Department Care Team (Latest Contact Info) Description 04/17/2016 Orders Only [facility] CLINCONV ProviderKrzysztof MD [address] [place] [address] Social History Tobacco Use Types Packs/Day Years Used Date Smoking Tobacco: Never Alcohol Use Standard Drinks/Week Comments No 0 (1 standard drink = 0.6 oz pur e alcohol) Comments Unknown Sex and Gender Information Value Date Recorded Sex Assigned at Not on file Legal Sex Female 10:24 AM PAPER INSERTER Gender Identity Female 01/15/2021 9:27 PM CDT Sexual Orientation Straight 01/15/2021 9: 27 PM CDT documented as of this encounter Plan of Treatment Upcoming Encounters Date Type Department Care Team (Latest Contact Info) Description 01/27/2025 7:30 AM CDT Hospital Encounter [facility] Operating Room [id number] [place] [address] [place] [address] [facility] [address], [place] [address] 01/27/2025 7:30 AM CDT - 01/27/2025 9:00 AM CDT Surgery [facility] Operating Room [id number] [place] [address] [place] [address] [facility] [address], [place] [id number] DEBRIDEMENT LEFT KNEE WOUND WITH WOUND VAC PLACEMENT Scheduled Procedures Name Priority Associated Diagnoses Date/Ti me DEBRIDEMENT WOUND Open wound of left knee, initial encounter Other complications of procedures, not elsewhere classified, initial encounter 01/27/2025 7:30 AM CDT documented as of this encounter Procedures Procedure Name Priority Date/Time Associated Diagnosis Comments SCAN - LABS 04/17/2016 12:00 AM PAPER INSERTER documented in this encounter Results * SCAN - LABS (04/17/2016 12:00 AM PAPER INSERTER) Narrative 04/17/2016 12:00 AM PAPER INSERTER Ordered by an unspecified provider. us Historical [...] documented as of this encounter Care Teams Stenocaptioner Relationship Specialty Start Date End Date Harry Jorgensen MD PCP - General 09/06/16 Taqueria Sullivan MD [address] [address] PCP - General 08/27/16 09/05/16 Harry Jorgensen MD PCP - General 04/21/14 08/26/16 Vitaliy Alcazar MD [address] [facility] [address] [place] [address] [place] [address] PCP - Home Infusion Attending Infectious Diseases 11/10/24 Truman Moody MD [address] [address] Mask Layout Designer Cardiology 02/01/19 09/16/24 Michael Quiros MD [address] 816210 Referring Physician Interventional Cardiology 09/17/24 Mohan Rico MD [address] [facility] [address] [place] [address] [place] [address] Consulting Physician Pulmonary Disease 09/17/24 Betty Calvin PA [address] [facility] [address] [place] [address] [place] [address] Physician Physician Coding Specialist Orthopedic Surgery 10/08/24 Sybil Alex, [facility] Pharmacist Pharmacy 10/29/24 11/15/24 Rivka Coello, [facility] Pharmacist Pharmacy 11/15/24 11/23/24 Carol Sainz, RN Registered Nurse 12/02/24 Sybil Alex, [facility] Pharmacist Pharmacy 12/08/24 12/24/24 documented as of this encounter
--- OUTSIDE RECORDS SUMMARY | 2025-01-21 15:45 | XMS_ITS | Encounter Summary ---
Author Organization [facility] Facility Care Team Providers Care Power Superintendent Name Role Phone Harry Jorgensen MD Primary Care Provider + Taqueria Sullivan MD Primary Care Provider [phone] Harry Jorgensen MD Primary Care Provider + Truman Moody MD Unavailable [phone] Michael Quiros MD Unavailable [phone] Mohan Rico MD Unavailable [phone] Betty Calvin Unavailable [phone] Sybil Alex [facility] Unavailable Unavailable Vitaliy Alcazar MD Unavailable [phone] Rivka Coello [facility] Unavailable Unavailable Carol Sainz RN Unavailable Unavailable Sybil Alex [facility] Unavailable Unavailable Encounter Details Date Type Department Care Team (Latest Contact Info) Description 04/25/2016 Orders Only [facility] CLINCONV ProviderKrzysztof MD [address] [place] [address] Social History Tobacco Use Types Packs/Day Years Used Date Smoking Tobacco: Never Alcohol Use Standard Drinks/Week Comments No 0 (1 standard drink = 0.6 oz pur e alcohol) Comments Unknown Sex and Gender Information Value Date Recorded Sex Assigned at Not on file Legal Sex Female 10:24 AM FUNCTIONAL CONSULTANT Gender Identity Female 01/15/2021 9:27 PM CDT Sexual Orientation Straight 01/15/2021 9: 27 PM CDT documented as of this encounter Plan of Treatment Upcoming Encounters Date Type Department Care Team (Latest Contact Info) Description 01/27/2025 7:30 AM CDT Hospital Encounter [facility] Operating Room [id number] [place] [address] [place] [address] [facility] [address], [place] [address] 01/27/2025 7:30 AM CDT - 01/27/2025 9:00 AM CDT Surgery [facility] Operating Room [id number] [place] [address] [place] [address] [facility] [address], [place] [id number] DEBRIDEMENT LEFT KNEE WOUND WITH WOUND VAC PLACEMENT Scheduled Procedures Name Priority Associated Diagnoses Date/Ti me DEBRIDEMENT WOUND Open wound of left knee, initial encounter Other complications of procedures, not elsewhere classified, initial encounter 01/27/2025 7:30 AM CDT documented as of this encounter Procedures Procedure Name Priority Date/Time Associated Diagnosis Comments SCAN - LABS 04/25/2016 12:00 AM FUNCTIONAL CONSULTANT documented in this encounter Results * SCAN - LABS (04/25/2016 12:00 AM FUNCTIONAL CONSULTANT) Narrative 04/25/2016 12:00 AM FUNCTIONAL CONSULTANT Ordered by an unspecified provider. us Historical [...] as of this encounter Care Teams Power Superintendent Relationship Specialty Start Date End Date Harry Jorgensen MD PCP - General 09/06/16 Taqueria Sullivan MD [address] [address] PCP - General 08/27/16 09/05/16 Harry Jorgensen MD PCP - General 04/21/14 08/26/16 Vitaliy Alcazar MD [address] [facility] [address] [place] [address] [place] [address] PCP - Home Infusion Attending Infectious Diseases 11/10/24 Truman Moody MD [address] [address] Taker Off Hemp Fiber Cardiology 02/01/19 09/16/24 Michael Quiros MD [address] 960730 Referring Physician Interventional Cardiology 09/17/24 Mohan Rico MD [address] [facility] [address] [place] [address] [place] [address] Consulting Physician Pulmonary Disease 09/17/24 Betty Calvin PA [address] [facility] [address] [place] [address] [place] [address] Physician Restuarant Crew Worker Orthopedic Surgery 10/08/24 Sybil Alex, [facility] Pharmacist Pharmacy 10/29/24 11/15/24 Rivka Coello, [facility] Pharmacist Pharmacy 11/15/24 11/23/24 Carol Sainz, RN Registered Nurse 12/02/24 Sybil Alex, [facility] Pharmacist Pharmacy 12/08/24 12/24/24 documented as of this encounter
--- OUTSIDE RECORDS SUMMARY | 2025-01-21 15:45 | XMS_ITS | Encounter Summary ---
Author Organization [facility] Facility Care Team Providers Care Advertising Manager Name Role Phone Harry Jorgensen MD Primary Care Provider + aTqueria Sullivan MD Primary Care Provider [phone] Harry Jorgensen MD Primary Care Provider + Truman Moody MD Unavailable [phone] Michael Quiros MD Unavailable [phone] Mohan Rico MD Unavailable [phone] Betty Calvin Unavailable [phone] Sybil Alex [facility] Unavailable Unavailable Vitaliy Alcazar MD Unavailable [phone] Rivka Coello [facility] Unavailable Unavailable Carol Sainz RN Unavailable Unavailable Sybil Alex [facility] Unavailable Unavailable Encounter Details Date Type Department Care Team (Latest Contact Info) Description 02/28/2016 Orders Only [facility]G CLINCONV ProviderKrzysztof MD [address] [place] [address] Social History Tobacco Use Types Packs/Day Years Used Date Smoking Tobacco: Never Alcohol Use Standard Drinks/Week Comments No 0 (1 standard drink = 0.6 oz pur e alcohol) Comments Unknown Sex and Gender Information Value Date Recorded Sex Assigned at Not on file Legal Sex Female 10:24 AM CHILDREN'S ENTERTAINER Gender Identity Female 01/15/2021 9:27 PM CDT Sexual Orientation Straight 01/15/2021 9: 27 PM CDT documented as of this encounter Plan of Treatment Upcoming Encounters Date Type Department Care Team (Latest Contact Info) Description 01/27/2025 7:30 AM CDT Hospital Encounter [facility] Operating Room [id number] [place] [address] [place] [address] [facility] [address], [place] [address] 01/27/2025 7:30 AM CDT - 01/27/2025 9:00 AM CDT Surgery [facility] Operating Room [id number] [place] [address] [place] [address] [facility] [address], [place] [id number] DEBRIDEMENT LEFT KNEE WOUND WITH WOUND VAC [...] documented as of this encounter Care Teams Advertising Manager Relationship Specialty Start Date End Date Harry Jorgensen MD PCP - General 09/06/16 Taqueria Sullivan MD [address] [address] PCP - General 08/27/16 09/05/16 Harry Jorgensen MD PCP - General 04/21/14 08/26/16 Vitaliy Alcazar MD [address] [facility] [address] [place] [address] [place] [address] PCP - Home Infusion Attending Infectious Diseases 11/10/24 Truman Moody MD [address] [address] Chief Executive Or Managing Director Cardiology 02/01/19 09/16/24 Michael Quiros MD [address] [place] [address] Referring Physician Interventional Cardiology 09/17/24 Mohan Rico MD [address] [facility] [address] [place] [address] [place] [address] Consulting Physician Pulmonary Disease 09/17/24 Betty Calvin PA [address] [facility] [address] [place] [address] [place] [address] Physician Phy Therapist Orthopedic Surgery 10/08/24 Sybil Alex, [facility] Pharmacist Pharmacy 10/29/24 11/15/24 Rivka Coello, [facility] Pharmacist Pharmacy 11/15/24 11/23/24 Carol Sainz, RN Registered Nurse 12/02/24 Sybil Alex, [facility] Pharmacist Pharmacy 12/08/24 12/24/24 documented as of this encounter
--- OUTSIDE RECORDS SUMMARY | 2025-01-21 15:45 | XMS_ITS | Encounter Summary ---
Author Organization [facility] Facility Care Team Providers Care Developer Programmer Analyst Name Role Phone Harry Jorgensen MD Primary Care Provider + Taqueria Sullivan MD Primary Care Provider [phone] Harry Jorgensen MD Primary Care Provider + Truman Moody MD Unavailable [phone] Michael Quiros MD Unavailable [phone] Mohan Rico MD Unavailable [phone] Betty Calvin Unavailable [phone] Sybil Alex [facility] Unavailable Unavailable Vitaliy Alcazar MD Unavailable [phone] Rivka Coello [facility] Unavailable Unavailable Carol Sainz RN Unavailable Unavailable Sybil Alex [facility] Unavailable Unavailable Encounter Details Date Type Department Care Team (Latest Contact Info) Description 04/10/2016 Orders Only [facility]G CLINCONV ProviderKrzysztof MD [address] [place] [address] Social History Tobacco Use Types Packs/Day Years Used Date Smoking Tobacco: Never Alcohol Use Standard Drinks/Week Comments No 0 (1 standard drink = 0.6 oz pur e alcohol) Comments Unknown Sex and Gender Information Value Date Recorded Sex Assigned at Not on file Legal Sex Female 10:24 AM COLLECTIONS REPRESENTATIVE Gender Identity Female 01/15/2021 9:27 PM CDT Sexual Orientation Straight 01/15/2021 9: 27 PM CDT documented as of this encounter Plan of Treatment Upcoming Encounters Date Type Department Care Team (Latest Contact Info) Description 01/27/2025 7:30 AM CDT Hospital Encounter [facility] Operating Room [id number] [place] [address] [place] [address] [facility] [address], [place] [address] 01/27/2025 7:30 AM CDT - 01/27/2025 9:00 AM CDT Surgery [facility] Operating Room [id number] [place] [address] [place] [address] [facility] [address], [place] [id number] DEBRIDEMENT LEFT KNEE WOUND WITH WOUND VAC [...] documented as of this encounter Care Teams Developer Programmer Analyst Relationship Specialty Start Date End Date Harry Jorgensen MD PCP - General 09/06/16 Taqueria Sullivan MD [address] [address] PCP - General 08/27/16 09/05/16 Harry Jorgensen MD PCP - General 04/21/14 08/26/16 Vitaliy Alcazar MD [address] [facility] [address] [place] [address] [place] [address] PCP - Home Infusion Attending Infectious Diseases 11/10/24 Truman Moody MD [address] [facility] [address] [address] Non Destructive Testing Specialist Cardiology 02/01/19 09/16/24 Michael Quiros MD [address] [place] [address] Referring Physician Interventional Cardiology 09/17/24 Mohan Rico MD [address] [facility] [address] [place] [address] [place] [address] Consulting Physician Pulmonary Disease 09/17/24 Betty Calvin PA [address] [facility] [address] [place] [address] [place] [address] Physician Tax Services Intern Orthopedic Surgery 10/08/24 Sybil Alex [facility] Pharmacist Pharmacy 10/29/24 11/15/24 Rivka Coello, [facility] Pharmacist Pharmacy 11/15/24 11/23/24 Carol Sainz, RN Registered Nurse 12/02/24 Sybil Alex, [facility] Pharmacist Pharmacy 12/08/24 12/24/24 documented as of this encounter
--- OUTSIDE RECORDS SUMMARY | 2025-01-21 15:45 | XMS_ITS | Encounter Summary ---
Author Organization [facility] Facility Care Team Providers Care Warehouse Receiving Supervisor Name Role Phone Harry Jorgensen MD Primary Care Provider + Taqueria Sullivan MD Primary Care Provider [phone] Harry Jorgensen MD Primary Care Provider + Truman Moody MD Unavailable [phone] Michael Quiros MD Unavailable [phone] Mohan Rico MD Unavailable [phone] Betty Calvin Unavailable [phone] Sybil Alex [facility] Unavailable Unavailable Vitaliy Alcazar MD Unavailable +[phone] Rivka Coello [facility] Unavailable Unavailable Carol Sainz RN Unavailable Unavailable Sybil Alex [facility] Unavailable Unavailable Encounter Details Date Type Department Care Team (Latest Contact Info) Description 07/08/2016 Orders Only [facility]G CLINCONV ProviderKrzysztof MD [address] [place] [address] Social History Tobacco Use Types Packs/Day Years Used Date Smoking Tobacco: Never Alcohol Use Standard Drinks/Week Comments No 0 (1 standard drink = 0.6 oz pur e alcohol) Comments Unknown Sex and Gender Information Value Date Recorded Sex Assigned at Not on file Legal Sex Female 10:24 AM REGISTERED NURSING PROFESSOR Gender Identity Female 01/15/2021 9:27 PM CDT Sexual Orientation Straight 01/15/2021 9: 27 PM CDT documented as of this encounter Plan of Treatment Upcoming Encounters Date Type Department Care Team (Latest Contact Info) Description 01/27/2025 7:30 AM CDT Hospital Encounter [facility] Operating Room [id number] [place] [address] [place] [address] [facility] [address], [place] [address] 01/27/2025 7:30 AM CDT - 01/27/2025 9:00 AM CDT Surgery [facility] Operating Room [id number] [place] [address] [place] [address] [facility] [address], [place] [id number] DEBRIDEMENT LEFT KNEE WOUND WITH WOUND VAC PLACEMENT Scheduled Procedures Name Priority Associated Diagnoses Date/Ti me DEBRIDEMENT WOUND Open wound of left knee, initial encounter Other complications of procedures, not elsewhere classified, initial encounter 01/27/2025 7:30 AM CDT documented as of this encounter Procedures Procedure Name Priority Date/Time Associated Diagnosis Comments SCAN - LABS 07/11/2016 12:00 AM REGISTERED NURSING PROFESSOR documented in this encounter Results * SCAN - LABS (07/11/2016 12:00 AM REGISTERED NURSING PROFESSOR) Narrative 07/11/2016 12:00 AM REGISTERED NURSING PROFESSOR Ordered by an unspecified provider. us Historical [...] documented as of this encounter Care Teams Warehouse Receiving Supervisor Relationship Specialty Start Date End Date Harry Jorgensen MD PCP - General 09/06/16 Taqueria Sullivan MD [address] [address] PCP - General 08/27/16 09/05/16 Harry Jorgensen MD PCP - General 04/21/14 08/26/16 Vitaliy Alcazar MD [address] [facility] [address] [place] [address] [place] [address] PCP - Home Infusion Attending Infectious Diseases 11/10/24 Truman Moody MD [address] [address] Freight Breaker Cardiology 02/01/19 09/16/24 Michael Quiros MD [address] 156780 Referring Physician Interventional Cardiology 09/17/24 Mohan Rico MD [address] [facility] [address] [place] [address] [place] [address] Consulting Physician Pulmonary Disease 09/17/24 Betty Calvin PA [address] [facility] [address] [place] [address] [place] [address] Physician Veterinarian Assistant Orthopedic Surgery 10/08/24 Sybil Alex, [facility] Pharmacist Pharmacy 10/29/24 11/15/24 Rivka Coello, [facility] Pharmacist Pharmacy 11/15/24 11/23/24 Carol Sainz, RN Registered Nurse 12/02/24 Sybil Alex, [facility] Pharmacist Pharmacy 12/08/24 12/24/24 documented as of this encounter
--- OUTSIDE RECORDS SUMMARY | 2025-01-21 15:45 | XMS_ITS | Clinical Summary ---
Author Organization [facility] Address [address] [facility] [place] [address] Care Team Providers Care Tuckpointer Cleaner Caulker Name Role Phone Harry Jorgensen MD Primary Care Provider [phone] Source Comments [facility],non-owned Affiliates and Associated Physician Practices is amultiple site organization consisting of ambulatory clinics and hospital sitesin [place], [place], [place] and [place]. This disclosure is being madepursuant to the Care Everywhere program and may not contain all information available regarding this patient. Last updated 18.[facility] Allergies Active Allergy Reactions Criticality Noted Date [...] on file Legal Sex Female 6:34 PM TRACK PRODUCTION ENGINEER Gender Identity Not on file Sexual Orientation Not on file Last Filed Vital Signs Vital Sign Reading Time Taken Comments Blood Pressure 108/61 05/06/2022 12:23 PM TRACK PRODUCTION ENGINEER Pulse 74 05/06/2022 12:23 PM TRACK PRODUCTION ENGINEER Temperature 36.7 C (98.1 F) 05/06/2022 12:23 PM TRACK PRODUCTION ENGINEER Respiratory Rate 19 05/06/2022 12:23 PM TRACK PRODUCTION ENGINEER Oxygen Saturation 92% 05/06/2022 12:23 PM TRACK PRODUCTION ENGINEER Inhaled Oxygen Concentration - - Weight 142 kg (313 lb) 05/03/2022 3:00 AM TRACK PRODUCTION ENGINEER Height 165.1 cm (5' 5) 05/03/2022 3:00 AM TRACK PRODUCTION ENGINEER Body Mass Index 52.09 05/03/2022 3:00 AM TRACK PRODUCTION ENGINEER Plan of Treatment Health Maintenance Due Date Last Done Comments BONE DENSITY TESTING 1950 MEDICARE AWV 12 MONTHS 1950 DTAP/TDAP/TD VACCINES (1 - Tdap) 02/28/1967 PNEUMOCOCCAL VACCINE 50+ (1 of 1 - PCV) 02/28/1998 ZOSTER VACCINE (1 of 2) 02/28/1998 Respiratory Syncytial Virus (RSV) Vaccine Pt: or over 60 yrs (1 - 1-dose 75+ series) 02/28/2023 COVID-19 VACCINE (2 - 2023-2 5 season) 2024 07/17/2020 DEPRESSION SCREENING 06/09/2024 INFLUENZA VACCINE (#1) 2025 02/06/2022 HEPATITIS C SCREENING Completed 07/18/2022 HEPATITIS B [...] this topic Medical Devices Implanted Type Area Resolution Specialist Device Identifier Shelf Expiration Date Model / Serial / Lot Nail Im 11mm 360mm T2 Sp Cndl Implanted:Qty: 1 on 05/03/2022 by Winston Mckinney, DO at [facility] Left: Femur [employer] 11/05/2026 1826-1136S / / [id number] Screw 5mm 90mm Ft Lck Ti Strl T2 Nail Implanted:Qty: 1 on 05/03/2022 by Winston Mckinney, DO at [facility] Left: Femur [employer] 11/06/2025 1896-5090S / / [id number] Screw 5mm 85mm Ft Lck Ti Strl T2 Im Nail Implanted:Qty: 1 on 05/03/2022 by Winston Mckinney, DO at [facility] Left: Femur [employer] 11/06/2026 1896-5085S / / [id number] Screw 5mm 75mm Ft Lck Ti Strl T2 Im Nail Implanted:Qty: 1 on 05/03/2022 by Winston Mckinney, DO at [facility] Left: Femur [employer] 11/06/2026 1896-5075S / / [id number] Cap End 4mm An[employer] Ar[employer]ds Nail Strl T2 Implanted:Qty: 1 on 05/03/2022 by Winston Mckinney, DO at [facility] Left: Femur [employer] 01/06/2027 1826-0003S / / [id number] Screw 5mm 35mm Ft Lck Ti Strl T2 Im Nail Implanted:Qty: 1 on 05/03/2022 by Winston Mckinney, DO at [facility] Left: Femur [employer] 12/06/2025 1896-5035S / / [id number] Screw 5mm 37.5mm Ft Lck Ti Strl T2 Im Implanted:Qty: 1 on 05/03/2022 by Winston Mckinney DO at [facility] Left: Femur [employer] 03/08/2026 [id number] / / [id number] Explanted Type Area Resolution Specialist Device Identifier Shelf Expiration Date Model / Serial / Lot Locking Screw, Fully Threaded Explanted:Qty: 1 on 05/03/2022 at [facility] Left: Femur 12/06/20256-5095S / / [id number] Insurance MEDICARE [facility] [place] [address] MEDICARE [employer] [facility] Advance Directives * Full Code (Latest Code Status on File) Date Activated Date Inactivated Comments 05/06/2022 5:18 PM 05/24/2022 10:09 AM * Full Code Date Activated Date Inactivated Comments 05/03/2022 3:10 AM 05/06/2022 5:13 PM Care Teams Tuckpointer Cleaner Caulker Relationship Specialty Start Date End Date Harry Jorgensen MD [address] [place] [phone] PCP - General Family Medicine 05/02/22
--- OUTSIDE RECORDS SUMMARY | 2025-01-21 15:45 | XMS_ITS | Encounter Summary ---
Author Organization [facility] Facility Care Team Providers Care Oxygraph Operator Name Role Phone Harry Jorgensen MD Primary Care Provider + Taqueria Sullivan MD Primary Care Provider [phone] Harry Jorgensen MD Primary Care Provider + Truman Moody MD Unavailable [phone] Michael Quiros MD Unavailable [phone] Mohan Rico MD Unavailable [phone] Betty Calvin Unavailable [phone] Sybil Alex [facility] Unavailable Unavailable Vitaliy Alcazar MD Unavailable [phone] Rivka Coello [facility] Unavailable Unavailable Carol Sainz RN Unavailable Unavailable Sybil Alex [facility] Unavailable Unavailable Encounter Details Date Type Department Care Team (Latest Contact Info) Description 06/13/2016 Orders Only [facility] CLINCONV ProviderKrzysztof MD [address] [place] [address] Social History Tobacco Use Types Packs/Day Years Used Date Smoking Tobacco: Never Alcohol Use Standard Drinks/Week Comments No 0 (1 standard drink = 0.6 oz pur e alcohol) Comments Unknown Sex and Gender Information Value Date Recorded Sex Assigned at Not on file Legal Sex Female 10:24 AM BLOWER ROOM ATTENDANT Gender Identity Female 01/15/2021 9:27 PM CDT Sexual Orientation Straight 01/15/2021 9: 27 PM CDT documented as of this encounter Plan of Treatment Upcoming Encounters Date Type Department Care Team (Latest Contact Info) Description 01/27/2025 7:30 AM CDT Hospital Encounter [facility] Operating Room [id number] [place] [address] [place] [address] [facility] [address], [place] [address] 01/27/2025 7:30 AM CDT - 01/27/2025 9:00 AM CDT Surgery [facility] Operating Room [id number] [place] [address] [place] [address] [facility] [address], [place] [id number] DEBRIDEMENT LEFT KNEE WOUND WITH WOUND VAC PLACEMENT Scheduled Procedures Name Priority Associated Diagnoses Date/Ti me DEBRIDEMENT WOUND Open wound of left knee, initial encounter Other complications of procedures, not elsewhere classified, initial encounter 01/27/2025 7:30 AM CDT documented as of this encounter Procedures Procedure Name Priority Date/Time Associated Diagnosis Comments SCAN - LABS 06/18/2016 12:00 AM BLOWER ROOM ATTENDANT documented in this encounter Results * SCAN - LABS (06/18/2016 12:00 AM BLOWER ROOM ATTENDANT) Narrative 06/18/2016 12:00 AM BLOWER ROOM ATTENDANT Ordered by an unspecified provider. us Historical [...] documented as of this encounter Care Teams Oxygraph Operator Relationship Specialty Start Date End Date Harry Jorgensen MD PCP - General 09/06/16 Taqueria Sullivan MD [address] [address] PCP - General 08/27/16 09/05/16 Harry Jorgensen MD PCP - General 04/21/14 08/26/16 Vitaliy Alcazar MD [address] [facility] [address] [place] [address] [place] [address] PCP - Home Infusion Attending Infectious Diseases 11/10/24 Truman Moody MD [address] [address] Systems Lead Cardiology 02/01/19 09/16/24 Michael Quiros MD [address] [address] Referring Physician Interventional Cardiology 09/17/24 Mohan Rico MD [address] [facility] [address] [place] [address] [place] [address] Consulting Physician Pulmonary Disease 09/17/24 Betty Calvin PA [address] [facility] [address] [place] [address] [place] [address] Physician Chin Strap Cutter Orthopedic Surgery 10/08/24 Sybil Alex, [facility] Pharmacist Pharmacy 10/29/24 11/15/24 Rivka Coello, [facility] Pharmacist Pharmacy 11/15/24 11/23/24 Carol Sainz, RN Registered Nurse 12/02/24 Sybil Alex, [facility] Pharmacist Pharmacy 12/08/24 12/24/24 documented as of this encounter
--- OUTSIDE RECORDS SUMMARY | 2025-01-21 15:45 | XMS_ITS | Encounter Summary ---
Author Organization [facility] Facility Care Team Providers Care Plasma Table Operator Name Role Phone Harry Jorgensen MD Primary Care Provider + Taqueria Sullivan MD Primary Care Provider [phone] Harry Jorgensen MD Primary Care Provider + Truman Moody MD Unavailable [phone] Michael Quiros MD Unavailable [phone] Mohan Rico MD Unavailable [phone] Betty Calvin Unavailable [phone] Sybil Alex [facility] Unavailable Unavailable Vitaliy Alcazar MD Unavailable [phone] Rivka Coello [facility] Unavailable Unavailable Carol Sainz RN Unavailable Unavailable Sybil Alex [facility] Unavailable Unavailable Encounter Details Date Type Department Care Team (Latest Contact Info) Description 07/18/2016 Orders Only [facility] CLINCONV ProviderKrzysztof MD [address] [place] [address] Social History Tobacco Use Types Packs/Day Years Used Date Smoking Tobacco: Never Alcohol Use Standard Drinks/Week Comments No 0 (1 standard drink = 0.6 oz pur e alcohol) Comments Unknown Sex and Gender Information Value Date Recorded Sex Assigned at Not on file Legal Sex Female 10:24 AM CLINICAL STAFF EDUCATOR Gender Identity Female 01/15/2021 9:27 PM CDT Sexual Orientation Straight 01/15/2021 9: 27 PM CDT documented as of this encounter Plan of Treatment Upcoming Encounters Date Type Department Care Team (Latest Contact Info) Description 01/27/2025 7:30 AM CDT Hospital Encounter [facility] Operating Room [id number] [place] [address] [place] [address] [facility] [address] [address] 01/27/2025 7:30 AM CDT - 01/27/2025 9:00 AM CDT Surgery [facility] Operating Room [id number] [place] [address] [place] [address] [facility] [address], [place] [id number] DEBRIDEMENT LEFT KNEE WOUND WITH WOUND VAC PLACEMENT Scheduled Procedures Name Priority Associated Diagnoses Date/Ti me DEBRIDEMENT WOUND Open wound of left knee, initial encounter Other complications of procedures, not elsewhere classified, initial encounter 01/27/2025 7:30 AM CDT documented as of this encounter Procedures Procedure Name Priority Date/Time Associated Diagnosis Comments SCAN - LABS 07/19/2016 12:00 AM CLINICAL STAFF EDUCATOR documented in this encounter Results * SCAN - LABS (07/19/2016 12:00 AM CLINICAL STAFF EDUCATOR) Narrative 07/19/2016 12:00 AM CLINICAL STAFF EDUCATOR Ordered by an unspecified provider. us Historical [...] documented as of this encounter Care Teams Plasma Table Operator Relationship Specialty Start Date End Date Harry Jorgensen MD PCP - General 09/06/16 Taqueria Sullivan MD [address] [address] PCP - General 08/27/16 09/05/16 Harry Jorgensen MD PCP - General 04/21/14 08/26/16 Vitaliy Alcazar MD [address] [facility] [address] [place] [address] [place] [address] PCP - Home Infusion Attending Infectious Diseases 11/10/24 Truman Moody MD [address] [address] Criminal Investigative Agent Cardiology 02/01/19 09/16/24 Michael Quiros MD [address] [address] Referring Physician Interventional Cardiology 09/17/24 Mohan Rico MD [address] [facility] [address] [place] [address] [place] [address] Consulting Physician Pulmonary Disease 09/17/24 Betty Calvin PA [address] [facility] [address] [place] [address] [place] [address] Physician Interstate Planner Orthopedic Surgery 10/08/24 Sybil Alex, [facility] Pharmacist Pharmacy 10/29/24 11/15/24 Rivka Coello, [facility] Pharmacist Pharmacy 11/15/24 11/23/24 Carol Sainz, RN Registered Nurse 12/02/24 Sybil Alex, [facility] Pharmacist Pharmacy 12/08/24 12/24/24 documented as of this encounter
--- OUTSIDE RECORDS SUMMARY | 2025-01-21 15:45 | XMS_ITS | Encounter Summary ---
Author Organization [facility] Facility Care Team Providers Care Road Tester Name Role Phone Harry Jorgensen MD Primary Care Provider + Taqueria Sullivan MD Primary Care Provider [phone] Harry Jorgensen MD Primary Care Provider + Truman Moody MD Unavailable [phone] Michael Quiros MD Unavailable [phone] Mohan Rico MD Unavailable [phone] Betty Calvin Unavailable [phone] Sybil Alex [facility] Unavailable Unavailable Vitaliy Alcazar MD Unavailable [phone] Rivka Coello [facility] Unavailable Unavailable Carol Sainz RN Unavailable Unavailable Sybil Alex [facility] Unavailable Unavailable Encounter Details Date Type Department Care Team (Latest Contact Info) Description 02/12/2016 Orders Only [facility] CLINCONV ProviderKrzysztof MD [address] [place] [address] Social History Tobacco Use Types Packs/Day Years Used Date Smoking Tobacco: Never Alcohol Use Standard Drinks/Week Comments No 0 (1 standard drink = 0.6 oz pur e alcohol) Comments Unknown Sex and Gender Information Value Date Recorded Sex Assigned at Not on file Legal Sex Female 10:24 AM MARINE WELDER Gender Identity Female 01/15/2021 9:27 PM CDT Sexual Orientation Straight 01/15/2021 9: 27 PM CDT documented as of this encounter Plan of Treatment Upcoming Encounters Date Type Department Care Team (Latest Contact Info) Description 01/27/2025 7:30 AM CDT Hospital Encounter [facility] Operating Room [address] [place] [address] [place] [address] [facility] [address], [place] [address] 01/27/2025 7:30 AM CDT - 01/27/2025 9:00 AM CDT Surgery [facility] Operating Room [address] [place] [address] [place] [address] [facility] [address], [place] [id number] DEBRIDEMENT LEFT KNEE WOUND WITH WOUND VAC [...] documented as of this encounter Care Teams Road Tester Relationship Specialty Start Date End Date Harry Jorgensen MD PCP - General 09/06/16 Taqueria Sullivan MD [address] [address] PCP - General 08/27/16 09/05/16 Harry Jorgensen MD PCP - General 04/21/14 08/26/16 Vitaliy Alcazar MD [address] [facility] [address] [place] [address] [place] [address] PCP - Home Infusion Attending Infectious Diseases 11/10/24 Truman Moody MD [address] [address] Captain Waiter Cardiology 02/01/19 09/16/24 Michael Quiros MD [address] [place] [address] Referring Physician Interventional Cardiology 09/17/24 Mohan Rico MD [address] [facility] [address] [place] [address] [place] [address] Consulting Physician Pulmonary Disease 09/17/24 Betty Calvin PA [address] [facility] [address] [place] [address] [place] [address] Physician Director Investor Relations Orthopedic Surgery 10/08/24 Sybil Alex, [facility] Pharmacist Pharmacy 10/29/24 11/15/24 Rivka Coello, [facility] Pharmacist Pharmacy 11/15/24 11/23/24 Carol Sainz, RN Registered Nurse 12/02/24 Sybil Alex, [facility] Pharmacist Pharmacy 12/08/24 12/24/24 documented as of this encounter
--- OUTSIDE RECORDS SUMMARY | 2025-01-21 15:45 | XMS_ITS | Encounter Summary ---
Author Organization [facility] Facility Care Team Providers Care Picker Machine Operator Name Role Phone Harry Jorgensen MD Primary Care Provider + Taqueria Sullivan MD Primary Care Provider [phone] Harry Jorgensen MD Primary Care Provider + Truman Moody MD Unavailable [phone] Michael Quiros MD Unavailable [phone] Mohan Rico MD Unavailable [phone] Betty Calvin Unavailable [phone] Sybil Alex [facility] Unavailable Unavailable Vitaliy Alcazar MD Unavailable [phone] Rivka Coello [facility] Unavailable Unavailable Carol Sainz RN Unavailable Unavailable Sybil Alex [facility] Unavailable Unavailable Encounter Details Date Type Department Care Team (Latest Contact Info) Description 02/19/2016 Orders Only [facility] CLINCONV ProviderKrzysztof MD [address] [place] [address] Social History Tobacco Use Types Packs/Day Years Used Date Smoking Tobacco: Never Alcohol Use Standard Drinks/Week Comments No 0 (1 standard drink = 0.6 oz pur e alcohol) Comments Unknown Sex and Gender Information Value Date Recorded Sex Assigned at Not on file Legal Sex Female 10:24 AM CHIEF CATALYST OPERATOR Gender Identity Female 01/15/2021 9:27 PM CDT Sexual Orientation Straight 01/15/2021 9: 27 PM CDT documented as of this encounter Plan of Treatment Upcoming Encounters Date Type Department Care Team (Latest Contact Info) Description 01/27/2025 7:30 AM CDT Hospital Encounter [facility] Operating Room [address] [place] [address] [place] [address] [facility] [address], [place] [address] 01/27/2025 7:30 AM CDT - 01/27/2025 9:00 AM CDT Surgery [facility] Operating Room [address] [place] [address] [place] [address] [facility] [address], [place] [id number] DEBRIDEMENT LEFT KNEE WOUND WITH WOUND VAC [...] documented as of this encounter Care Teams Picker Machine Operator Relationship Specialty Start Date End Date Harry Jorgensen MD PCP - General 09/06/16 Taqueria Sullivan MD [address] [address] PCP - General 08/27/16 09/05/16 Harry Jorgensen MD PCP - General 04/21/14 08/26/16 Vitaliy Alcazar MD [address] [facility] [address] [place] [address] [place] [address] PCP - Home Infusion Attending Infectious Diseases 11/10/24 Truman Moody MD [address] [address] Pile Driving Superintendent Cardiology 02/01/19 09/16/24 Michael Quiros MD [address] [place] [address] Referring Physician Interventional Cardiology 09/17/24 Mohan Rico MD [address] [facility] [address] [place] [address] [place] [address] Consulting Physician Pulmonary Disease 09/17/24 Betty Calvin PA [address] [facility] [address] [place] [address] [place] [address] Physician Grassland Conservationist Orthopedic Surgery 10/08/24 Sybil Alex, [facility] Pharmacist Pharmacy 10/29/24 11/15/24 Rivka Coello, [facility] Pharmacist Pharmacy 11/15/24 11/23/24 Carol Sainz, RN Registered Nurse 12/02/24 Sybil Alex, [facility] Pharmacist Pharmacy 12/08/24 12/24/24 documented as of this encounter
--- OUTSIDE RECORDS SUMMARY | 2025-01-21 15:45 | XMS_ITS | Encounter Summary ---
Author Organization [facility] Facility Care Team Providers Care Paint Pourer Name Role Phone Harry Jorgensen MD Primary Care Provider + Taqueria Sullivan MD Primary Care Provider [phone] Harry Jorgensen MD Primary Care Provider + Truman Moody MD Unavailable [phone] Michael Quiros MD Unavailable [phone] Mohan Rico MD Unavailable [phone] Betty Calvin Unavailable [phone] Sybil Alex [facility] Unavailable Unavailable Vitaliy Alcazar MD Unavailable [phone] Rivka Coello [facility] Unavailable Unavailable Carol Sainz RN Unavailable Unavailable Sybil Alex [facility] Unavailable Unavailable Encounter Details Date Type Department Care Team (Latest Contact Info) Description 04/03/2016 Orders Only [facility] CLINCONV ProviderKrzysztof MD [address] [place] [address] Social History Tobacco Use Types Packs/Day Years Used Date Smoking Tobacco: Never Alcohol Use Standard Drinks/Week Comments No 0 (1 standard drink = 0.6 oz pur e alcohol) Comments Unknown Sex and Gender Information Value Date Recorded Sex Assigned at Not on file Legal Sex Female 10:24 AM HOSPITAL PHARMACY DIRECTOR Gender Identity Female 01/15/2021 9:27 PM CDT Sexual Orientation Straight 01/15/2021 9: 27 PM CDT documented as of this encounter Plan of Treatment Upcoming Encounters Date Type Department Care Team (Latest Contact Info) Description 01/27/2025 7:30 AM CDT Hospital Encounter [facility] Operating Room [address] [place] [address] [place] [address] [facility] [address], [place] [address] 01/27/2025 7:30 AM CDT - 01/27/2025 9:00 AM CDT Surgery [facility] Operating Room [address] [place] [address] [place] [address] [facility] [address], [place] [id number] DEBRIDEMENT LEFT KNEE WOUND WITH WOUND VAC [...] documented as of this encounter Care Teams Paint Pourer Relationship Specialty Start Date End Date Harry Jorgensen MD PCP - General 09/06/16 Taqueria Sullivan MD [address] [address] PCP - General 08/27/16 09/05/16 Harry Jorgensen MD PCP - General 04/21/14 08/26/16 Vitaliy Alcazar MD [address] [facility] [address] [place] [address] [place] [address] PCP - Home Infusion Attending Infectious Diseases 11/10/24 Truman Moody MD [address] [address] Identification Officer Cardiology 02/01/19 09/16/24 Michael Quiros MD [address] [place] [address] Referring Physician Interventional Cardiology 09/17/24 Mohan Rico MD [address] [facility] [address] [place] [address] [place] [address] Consulting Physician Pulmonary Disease 09/17/24 Betty Calvin PA [address] [facility] [address] [place] [address] [place] [address] Physician Commercial Construction Project Manager Orthopedic Surgery 10/08/24 Sybil Alex, [facility] Pharmacist Pharmacy 10/29/24 11/15/24 Rivka Coello, [facility] Pharmacist Pharmacy 11/15/24 11/23/24 Carol Sainz, RN Registered Nurse 12/02/24 Sybil Alex, [facility] Pharmacist Pharmacy 12/08/24 12/24/24 documented as of this encounter
--- OUTSIDE RECORDS SUMMARY | 2025-01-21 15:45 | XMS_ITS | Patient Health Record ---
Author Organization [facility] Address [address] [place], [place] [id number] Care Team Providers Care General Office Worker Name Role Phone ELLY Arambula Unavailable [phone] Harry Jorgensen Unavailable Unavailable SHAYNE BAILEY Unavailable [phone] EUSEBIA TAVAREZ Unavailable [phone] Allergies Allergen (clinical drug ingredient) Drug/Non Drug Allergy documented on EMR Reaction Allergy Type Onset Date Status azithromycin Azithromycin Unknown Drug Allergy 02/05/2017 active predniSONE Unknown Drug Allergy 02/05/2017 activ e [...] Medicationnabumetone 500 MG Oral Tablet *Reorder from [employer] for eRx and Interaction Alerts* 05/27/2012 Active Vital Signs Height-cm 165.10 cm 07/06/2024 Weight-kg 124.74 kg 07/06/2024 Height 65.00 in 07/06/2024 Weight 275 lbs 07/06/2024 BMI 45.76 kg/m2 07/06/2024 Encounters Encounter Location Date Provider Diagnosis [facility] [address] [facility] [address] [place], [place] [id number] 02/02/2024 EUSEBIA TAVAREZ Other hammer toe(s) (acquired), right foot M20.41 ; Tinea unguium B35.1 ; Other hammer toe(s) (acquired), left foot M20.42 ; Pain in right toe(s) M79.674 ; Pain in left toe(s) M79.675 ; 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, bilateral legs I70.203 and Acquired keratosis [keratoderma] palmaris et plantaris L85.1 [facility] [place] [address] [facility] [address] [place], [place] [id number] 04/05/2024 EUSEBIA SHARPANTHONY Other hammer toe(s) (acquired), right foot M20.41 ; Tinea unguium B35.1 ; Other hammer toe(s) (acquired), left foot M20.42 ; Pain in right toe(s) M79.674 ; Pain in left toe(s) M79.675 ; 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, bilateral legs I70.203 and Acquired keratosis [keratoderma] palmaris et plantaris L85.1 [facility] [place] [address] [facility] [address] [place], [place] [id number] 07/06/2024 SHAYNE BAILEY Onychomycosis B35.1 ; Pain in right toe(s) M79.674 ; Pain in left toe(s) M79.675 ; Atherosclerosis 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, bilateral legs I70.213 and Acquired keratoderma L85.1 [facility] [place] [address] [facility] [address] [place], [place] [id number] 09/20/2024 SHAYNE BAILEY Onychomycosis B35.1 ; Pain in right toe(s) M79.674 ; Pain in left toe(s) M79.675 ; Atherosclerosis 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, bilateral legs I70.213 and Acquired keratoderma L85.1 Assessments Encounter Date Diagnosis (ICD Code) Assessment Notes Treatment Notes Treatment Clinical Notes Section Notes 02/02/2024 Other hammer toe(s) (acquired), right foot [...] (acquired), left foot (ICD-10 - M20.42) 02/02/2024 Pain in right toe(s) (ICD-10 - M79.674) 04/05/2024 Pain in right toe(s) (ICD-10 - M79.674) 09/20/2024 Pain in left toe(s) (ICD-10 - M79.675) 07/06/2024 Atherosclerosis 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, bilateral legs (ICD-10 - I70.213) 04/05/2024 Pain in left toe(s) (ICD-10 - M79.675) 07/06/2024 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) 09/20/2024 Atherosclerosis 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, bilateral legs (ICD-10 - I70.213) 02/02/2024 Pain in left toe(s) (ICD-10 - M79.675) 04/05/2024 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, bilateral legs (ICD-10 - I70.203) Patient educated on risks and aggravating factors of PVD, including conservative treatment options such as a diet and exercise regimen to aid in slowing progression of vascular disease 02/02/2024 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, bilateral legs (ICD-10 - [...] Date Coverage End Date Medicare Part B [facility] [address] [place] [address] [id number] ELLIS TOBAR Self - patient is the insured [employer] [address] [place] [id number] ELLIS TOBAR Self - patient is the insured
--- OUTSIDE RECORDS SUMMARY | 2025-01-21 15:45 | XMS_ITS | Encounter Summary ---
Author Organization [facility] Care Team Providers Care R And D Lab Technician Name Role Phone Harry Jorgensen MD Primary Care Provider + Taqueria Sullivan MD Primary Care Provider [phone] Harry Jorgensen MD Primary Care Provider + Truman Moody MD Unavailable [phone] Michael Quiros MD Unavailable [phone] Mohan Rico MD Unavailable [phone] Betty Calvin Unavailable [phone] Sybil Alex [facility] Unavailable Unavailable Vitaliy Alcazar MD Unavailable [phone] Rivka Coello [facility] Unavailable Unavailable Carol Sainz RN Unavailable Unavailable Sybil Alex [facility] Unavailable Unavailable Encounter Details Date Type Department Care Team (Latest Contact Info) Description 05/04/2016 Orders Only [facility] CLINCONV ProviderKrzysztof MD [address] [place] [address] Social History Tobacco Use Types Packs/Day Years Used Date Smoking Tobacco: Never Alcohol Use Standard Drinks/Week Comments No 0 (1 standard drink = 0.6 oz pur e alcohol) Comments Unknown Sex and Gender Information Value Date Recorded Sex Assigned at Not on file Legal Sex Female 10:24 AM IT PROJECT LEAD Gender Identity Female 01/15/2021 9:27 PM CDT Sexual Orientation Straight 01/15/2021 9: 27 PM CDT documented as of this encounter Plan of Treatment Upcoming Encounters Date Type Department Care Team (Latest Contact Info) Description 01/27/2025 7:30 AM CDT Hospital Encounter [facility] [id number] [place] [address] [place] [address] [facility] [address] [place] [address] 01/27/2025 7:30 AM CDT - 01/27/2025 9:00 AM CDT Surgery [facility] [id number] [place] [address] [place] [address] [facility] [address] [place], [place] [id number] DEBRIDEMENT LEFT KNEE WOUND WITH WOUND VAC PLACEMENT Scheduled Procedures Name Priority Associated Diagnoses Date/Ti me DEBRIDEMENT WOUND Open wound of left knee, initial encounter Other complications of procedures, not elsewhere classified, initial encounter 01/27/2025 7:30 AM CDT documented as of this encounter Procedures Procedure Name Priority Date/Time Associated Diagnosis Comments CARDIOLOGY REPORT 05/04/2016 12: 00 AM IT PROJECT LEAD documented in this encounter Results * CARDIOLOGY REPORT (05/04/2016 12:00 AM IT PROJECT LEAD) Anatomical Region Laterality Modality Other Narrative 05/04/2016 12:00 AM IT PROJECT LEAD Ordered by an unspecified provider. us Historical [...] documented as of this encounter Care Teams R And D Lab Technician Relationship Specialty Start Date End Date Harry Jorgensen MD PCP - General 09/06/16 Taqueria Sullivan MD [address] [address] PCP - General 08/27/16 09/05/16 Harry Jorgensen MD PCP - General 04/21/14 08/26/16 Vitaliy Alcazar MD [address] [facility] [address] [place] [address] [place] [address] PCP - Home Infusion Attending Infectious Diseases 11/10/24 Truman Moody MD [address] [address] [employer] Hat [employer] Cardiology 02/01/19 09/16/24 Michael Quiros MD [address] [address] Referring Physician Interventional Cardiology 09/17/24 Mohan Rico MD [address] [facility] [address] [place] [address] [place] [address] Consulting Physician Pulmonary Disease 09/17/24 Betty Calvin PA [address] [facility] [address] [place] [address] [place] [address] Physician Restaurant Attendant Orthopedic Surgery 10/08/24 Sybil Alex [facility] Pharmacist Pharmacy 10/29/24 11/15/24 Rivka Coello [facility] Pharmacist Pharmacy 11/15/24 11/23/24 Carol Sainz, RN Registered Nurse 12/02/24 Sybil Alex, [facility] Pharmacist Pharmacy 12/08/24 12/24/24 documented as of this encounter
--- OUTSIDE RECORDS SUMMARY | 2025-01-21 15:45 | XMS_ITS | Encounter Summary ---
Author Organization [facility] Address [address] [place] [address] Phone Care Team Providers Care Wire Drawer Name Role Phone Harry Jorgensen MD Primary Care Provider + Michael Quiros MD Unavailable [phone] Mohan Rico MD Unavailable [phone] Betty Calvin Unavailable [phone] Vitaliy Alcazar MD Unavailable [phone] Carol Sainz RN Unavailable Unavailable Reason for Visit * Reason Comments Wound Dehiscence * Consultation (Routine) - Authorized Specialty Diagnoses / Procedures Referred By Contac t Referred To Contact Plastic Surgery Diagnoses S/P total knee arthroplasty, right Postoperative wound dehiscence, subsequent encounter Adelfo Marsh MD [address] [place] [facility] [place] [address] Phone: tel: fax: [place] [address] [facility] [address] [place] [address] Phone: tel: fax: Referral ID Status Reason Start Date Expiration Date Visits Requested Visits Authorized [id number] Authorized Specialty Services Required 11/26/2024 12/26/2025 12 12 Encounter Details Date Type Department Care Team (Latest Contact Info) Description 01/21/2025 8:15 AM CDT Office Visit [facility] [address] [facility] Medical Office [address] [place] [address] [place] [address] [place] [address] [place] [address] Postoperative wound dehiscence, initial encounter (Primary Dx); S/P total knee arthroplasty, right; Wound infection after surgery Social History Tobacco Use Types Packs/Day Years Used Date Smoking Tobacco: Never Smokeless Tobacco: Never Alcohol Use Standard Drinks/Week Comments No 0 (1 standard drink = 0.6 oz pur e alcohol) [facility] Utilities Answer Date Recorded In the past 12 months has [employer] electric, gas, oil, or water company threatened to shut off services in your home? No 12/03/2024 Social Connection and Isolation Panel Answer Date Recorded In a typical week, how many times do you talk on the phone with family, friends, or neighbors? More than three times a week 12/03/2024 How often do you get togethe r with friends or relatives? More than three times a week 12/03/2024 How often do you attend [facility] or restorationism services? More than 4 times per year 12/03/2024 Do you belong to any clubs o r organizations such as confucianism groups, unions, fraternal or athletic groups, or school groups? Yes 12/03/2024 How often do you attend meet ings of the clubs or organizations you belong to? More than 4 times per year 12/03/2024 Are you , , di vorced, , never , or living with a partner? 12/03/2024 AUDIT-C Answer Date Recorded Q1: How often do you have a drink containing alcohol? Never 12/02/2024 Q2: How many drinks containi ng alcohol do you have on a typical day when you are drinking? Patient does not drink Q3: How often do you have si x or more drinks on one occasion? Never 12/02/2024 Overall Financial Resource Strain (CARDIA) Answe r Date Recorded How hard is it for you to pa y for the very basics like food, housing, medical care, and heating? Not hard at all 12/03/2024 PHQ-2 Answer Date Recorded PHQ-2 Total Score 4 11/08/2024 Hunger Vital Sign Answer Date Recorded Within the past 12 months, y ou worried that your food would run out before you got the money to buy more. Never true 12/04/19 25 Within the past 12 months, t he food you bought just didn't last and you didn't have money to get more. Never true 12/03/2024 PRAPARE - Transportation Answer Date Re corded In the past 12 months, has l ack of transportation kept you from medical appointments or from getting medications? No 11/08 In the past 12 months, has l ack of transportation kept you from meetings, work, or from getting things needed for daily living? No 12/03/2024 Housing Stability Vital Sign Answer Keith e [...] place to sleep or slept in a senior living (including now)? No 04/03/2023 PHQ-9 Answer Date Recorded PHQ-9 Total Score 7 11/08/2024 Housing Stability Vital Sign Answer Keith e Recorded In the last 12 months, was t here a time when you were not able to pay the mortgage or rent on time? No 12/03/2024 In the past 12 months, how m any times have you moved where you were living? 0 12/03/2024 At any time in the past 12 m [facility], were you homeless or living in a senior living (including now)? No 12/03/2024 Personal Safety Answer Date Recorded Have you ever been in or are you currently in a harmful physical or emotional relationship or is someone making you feel afraid or unsafe? 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 obese female non- smoker with hx A. 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 She initially underwent TKA 10/07/2024 c/b post-op hematoma for which she returned to the OR 11/04/2024 and 12/02/24 for repeat I&D and placement of ABX beads. Since then she has been managed with NPWT. Denies knee pain at this time. Patient denies claudication symptoms, no prior MD. Not diabetic. Currently weight bearing and ambulating with walker. MEDICATIONS: Current Outpatient Medications: ACETAMINOPHEN EXTRA STRENGTH ORAL, Take 2 tablets by mouth 2 (two) times a day, Disp: , Rfl: ampicillin (PRINCIPEN) 500 mg capsule, Take 1 capsule (500 mg total) by mouth 4 (four) times a day,Disp: 60 capsule, Rfl: 0 ascorbic acid (VITAMIN C) 1,000 mg tablet, Take 1 tablet (1,000 mg total) by mouth 2 (two) times a day, Disp: , Rfl: calcium amino acid chelate 200 mg calcium tablet, Take by mouth, Disp: , Rfl: cholecalciferol (VITAMIN D-3) 5,000 unit tablet, Take 1 tablet (5,000 Units total) by mouth 2 (two)times a day, Disp: , Rfl: ciprofloxacin (CIPRO) 500 mg tablet, Take 1 tablet (500 mg total) by mouth 2 (two) times a day (Patient not taking: Reported on 01/12/2025), Disp: 60 tablet, Rfl: 0 coenzyme Q10 300 mg capsule, Take 1 capsule (300 mg total) by mouth daily, Disp: , Rfl: doxycycline hyclate 100 mg capsule, , Disp: , Rfl: fluticasone propionate (FLONASE) 50 mcg/actuation nasal spray, Administer 1 spray into each nostrildaily, Disp: , Rfl: furosemide (LASIX) 40 mg tablet, Take 1 tablet (40 mg total) by mouth daily, Disp: , Rfl: Lactobacillus acidophilus 10 billion cell capsule, Take 1 capsule by mouth daily, Disp: , Rfl: levothyroxine (SYNTHROID) 150 mcg tablet, Take 1 tablet (150 mcg total) by mouth machine iii coremaker before breakfast, Disp: , Rfl: loperamide (IMODIUM) 2 mg capsule, Take 1 capsule (2 mg total) by mouth 4 (four) times a day as needed for diarrhea (Patient not taking: Reported on 01/12/2025), Disp: 30 capsule, Rfl: 0 magnesium oxide (MAG-OX) 400 mg (241.3 mg elemental magnesium) tablet, Take 1 tablet (400 mg total)by mouth daily, Disp: , Rfl: nitroglycerin (NITROSTAT) 0.4 mg SL tablet, Place 1 tablet (0.4 mg total) under the tongue every 5 (five) minutes as needed for chest pain, Disp: 25 tablet, Rfl: 1 polyethylene glycol (MIRALAX) 17 gram/dose bulk powder, Take 17 g by mouth daily, Disp: 510 g, Rfl:0 potassium chloride ER 10 mEq CR tablet, Take 1 tablet/capsule (10 mEq total) by mouth daily, Disp: , Rfl: rivaroxaban (XARELTO) 10 mg tablet, Take 1 tablet (10 mg total) by mouth nightly (Patient not taking: Reported on 01/18/2025), Disp: 30 tablet, Rfl: 0 rosuvastatin (CRESTOR) 5 mg tablet, TAKE 1 TABLET BY MOUTH EVERY DAY (Patient taking differently: Take 2 tablets (10 mg total) by mouth nightly), Disp: 90 tablet, Rfl: 3 senna-docusate (PERICOLACE) 8.6-50 mg, Take 1 tablet by mouth 2 (two) times a day as needed for constipation, Disp: 60 tablet, Rfl: 0 sotaloL (BETAPACE) 160 mg tablet, TAKE 1 TABLET BY MOUTH 2 TIMES A DAY, Disp: 180 tablet, Rfl: 1 traMADoL (ULTRAM) 50 mg tablet, Take 1 tablet (50 mg total) by mouth every 6 (six) hours as needed for pain, Disp: 30 tablet, Rfl: 0 trospium (SANCTURA) 20 mg tablet, Take 1 tablet (20 mg total) by mouth 2 (two) times a day, Disp: ,Rfl: verapamiL (CALAN) 120 mg tablet, Take 0.5 tablets (60 mg total) by mouth daily as needed (for AFib rhythm), Disp: , Rfl: verapamil SR (CALAN SR) 240 mg CR tablet, TAKE 1 TABLET BY MOUTH EVERY DAY, Disp: 90 tablet, Rfl: 2 Xarelto 20 mg tablet, Take 1 tablet (20 mg total) by mouth nightly, Disp: , Rfl: ALLERGIES: Allergies Allergen Reactions Azithromycin Anaphylaxis, Other (See comments) and Unknown causes afib Morphine Other (See comments) Reaction: Hallucinations Prednisone Anaphylaxis, Itching, Swelling and Rash SWELLING,ITCHING Silver Rash, Other (See comments) and Blisters Other reaction(s): Blisters, Contact Dermatitis; FROM WOUND VAC Vancomycin Other (See comments), Swelling and Rash Reaction: Rash, , , Reaction: Swelling, Other reaction(s): Skin Reactions Reaction: Rash, , , Reaction: Swelling, Reaction: Rash, , , Reaction: Swelling, Adhesive Other (See comments) Tolerates band-aids and Tegaderm. Atorvastatin Other (See comments) myalgias on 10 mgs daily, Joint pain Atorvastatin Calcium Other (See comments) myalgias on 10 mgs daily Bleach (Sodium Hypochlorite) Flushing (skin) Sodium Hypochlorite Itching PAST MEDICAL HISTORY: Past Medical History: Diagnosis Date Atrial fibrillation (HCC) 2006 Atrial fibrillation Cancer (HCC) squamous self forehead, forearm Closed bimalleolar fracture of left ankle with routine healing 04/02/2023 Edema Heart disease History of COVID-19 10/2024 HX OTHER MEDICAL foot surgury; Comments: MRD 04/21/2014 - HX OTHER MEDICAL ankle surgury; Comments: MRD 05/16/2015 - Hyperlipidemia Hypothyroidism Periprosthetic fracture around internal prosthetic left knee joint 06/07/2022 Recurrent infection of skin knee infected-has wound vac-pt described wound being 9inches long and 4.3 wide- c/o itching & burning of knee Sinusitis Sleep apnea SOB (shortness of breath) Thyroid disease MASS PAST SURGICAL HISTORY: Past Surgical History: Procedure Laterality Date ANKLE FRACTURE SURGERY Left ANKLE SURGERY BUNIONECTOMY Bilateral CARDIAC CATHETERIZATION 2007 cardiac catheterization CATARACT EXTRACTION 12/19/2020 and 12/26/2020 CHOLECYSTECTOMY DISCECTOMY FEMUR FRACTURE SURGERY Left HYSTERECTOMY INCISION AND DRAINAGE OF WOUND Right 10/21/2024 I&D Right Knee Surgical Site due to Wound Dehiscence INSERT / REPLACE / REMOVE PACEMAKER 01/2016 rt chest OTHER SURGICAL HISTORY 2006 Atrial fibrillation: ablation OTHER SURGICAL HISTORY 2007 puncture to heart during ablation OTHER SURGICAL HISTORY 2007 L - lung fluid removed OTHER SURGICAL HISTORY 2007 pace maker implanted OTHER SURGICAL HISTORY 2008 L- knee arthoscopy OTHER SURGICAL HISTORY 2009 heart cath ablation OTHER SURGICAL HISTORY 2009 R - knee arthoscopy SKIN CANCER EXCISION THYROID SURGERY Left PARTIAL TOTAL KNEE ARTHROPLASTY Left TOTAL KNEE ARTHROPLASTY Right 10/07/2024 UPPER GASTROINTESTINAL ENDOSCOPY 2009 upper endoscopy FAMILY HISTORY: Family History Problem Relation Age of Onset Stroke Mother Atrial fibrillation Mother Stroke Father Cancer Father Cancer Sister Breast cancer Sister Cancer, breast; Other Other No family history of Cancer, colon; Other Other No family history of Cervical cancer; Other Other No family history of Ovarian cancer; SOCIAL HISTORY: Social History Tobacco Use Smoking status: Never Smokeless tobacco: Never Substance and Sexual Activity Drug use: Yes Frequency: 3.0 times per week Types: Tramadol Sexual activity: Defer Alcohol Use: Not At Risk (12/02/2024) AUDIT-C Frequency of Alcohol Consumption: Never Average Number of Drinks: Patient does not drink Frequency of Binge Drinking: Never Review of Systems A full review of system was obtained, reviewed, and scanned into the chart. Physical Exam GEN: NAD PULM: Nonlabored breathing CVS: Normal perfusion Extremity exam: The patient is an 8 cm x 4 cm wound over the anterior aspect of the right knee. Medially, the woundprobes several cm. The implant itself is not visible however the probe depth is concerned implant exposure. There is no malodor, minimal fibrinous debris, mild serous drainage. The surrounding tissueis hyperemic and indurated with minimal laxity. Distally the lower extremity is quite edematous 2+ with hemosiderin deposits bilaterally. Patient is able to dorsiflex and plantar flex the right ankle. Patient is able to fully extend the knee. No evidence of previous incisions on the leg or right thigh. STUDIES: X-ray independently reviewed and interpreted: right knee 11/04/2024 demonstrates prosthetic joint inappropriate position without surrounding osseous lucency or soft tissue defect. Also independently reviewed and interpreted notes from Dr. Marsh (ortho). There does not appear to be a plan for hardware removal at this time. ASSESSMENT AND PLAN: Haylie is a 74 year old obese female non-smoker with hx A. 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 Options discussed: Given the depth of probe and the chronic nature of the wound we would like to ensure that the knee prosthesis is not colonizedprior to performing definitive coverage. We of a prosthesis is colonized we will not solve the wound/infection issue hardware may need to be as such, we will proceed room next week irrigation, debridement and thorough examination. Based on our findings we will discuss nextsteps with the patient. For we discussed options including pedicled medial gastrocnemius muscel flap versus V-Y fasciocutaneous advancement flap. Given the extent of induration and the poor tissue quality around the knee the patient is not a good candidate for V-Y fasciocutaneous advancement. We also discussed that she isat higher risk for donor site wound issues, given obesity. We discussed that she would have a drain peripherally and would require a skin anterior thigh. Postoperatively she will be placed in a knee immobilizer and non-weight bearing with instructions to elevate the extremity as much as possible. May admit postop. The risks of the surgical options were discussed, including bleeding, infection, damage to nearby structures, recurrent wound, donor site would healing issues, seroma, hematoma, decreased range of motion flap loss, graft incomplete take. The risks of the non-surgical options were discussed, including continued or new prosthetic knee infection in hardware complication. The patient and I believe the best treatment in this particular case is: Initial irrigation and debridement for better understanding of the wound followed by coverage if hardware is not colonized. Ifthe implant is exposed in the wound, will have a discussion with her orthopedic surgeon regarding risk/benefit analysis of hardware removal and antibiotic spacer implantation prior to definitive wound closure. Follow up next week for I&D Restrictions:none Patient will need to hold XARELTO prior to the procedure to decrease bleeding risk. Will confirm recommendations with her rn med surg Dr. Damico. she should elevate the extremity as much as possible and wear a compressive dressing or compression sock to improve extremity edema. All of the patient's questions were encouraged and answered to their satisfaction. Raghavendra Watters MD This document was transcribed using voice recognition software without a human fire tower keeper. Itmay contain typographical, grammatical, and/or syntax errors. I have seen and examined the patient on 01/21/25. I agree with the findings and plan of care as documented in the resident's/fellow's note.. Georgie Leon M.D. [employer] [facility] Division of Plastic and Reconstructive Surgery [facility] documented in this encounter Plan of Treatment Upcoming Encounters Date Type Department Care Team (Latest Contact Info) Description 01/27/2025 7:30 AM CDT Hospital Encounter [facility] Operating Room [address] [place] [address] [place] [address] [address] 01/27/2025 7:30 AM CDT - 01/27/2025 9:00 AM CDT Surgery [facility] Operating Room [address] [place] [address] [place] [address] [address] DEBRIDEMENT LEFT KNEE WOUND WITH WOUND VAC PLACEMENT Scheduled Procedures Name Priority Associated Diagnoses Date/Ti me DEBRIDEMENT WOUND Open wound of left knee, initial encounter Other complications of procedures, not elsewhere classified, initial encounter 01/27/2025 7:30 AM CDT documented as of this encounter Visit Diagnoses Diagnosis Postoperative wound dehiscence, initial encounter- Primary S/P total knee arthroplasty, right Wound infection after surgery Open wound of left knee Other complications of procedures, not elsewhere classified, initial encounter Open wound of left knee, initial encounter Other complications of procedures, not elsewhere classified, initial encounter documented in this encounter Discontinued Medications Medication Sig Discontinue Reason Start Date End Da te ciprofloxacin (CIPRO) 500 mg tabletIndications:Posto perative wound dehiscence, subsequent encounter,S/P total knee arthroplasty, right Take 1 tablet (500 mg total) by mouth 2 (two) times a day 12/27/2024 01/21/2025 loperamide (IMODIUM) 2 mg capsule Take 1 capsule (2 mg total) by mouth 4 (four) times a day as needed for diarrhea 10/29/2024 01/21/2025 Xarelto 20 mg tablet Take 1 tablet (20 mg total) by mouth nightly Patient Reported 02/03/2024 01/21/2025 documented as of this encounter Orders Outpatient Referral Count Last Ordered Date Fir st Ordered Date AMB REFERRAL TO PLASTIC SURGERY 1 documented in this encounter Care Teams Wire Drawer Relationship Specialty Start Date End Date Harry Jorgensen MD PCP - General 09/06/16 Vitaliy Alcazar MD [address] [place] [address] [place] [address] PCP - Home Infusion Attending Infectious Diseases 11/10/24 Michael Quiros MD [address] [place] [address] Referring Physician Interventional Cardiology 09/17/24 Mohan Rico MD [address] [place] [address] [place] [address] Consulting Physician Pulmonary Disease 09/17/24 Betty Calvin PA [address] [place] [address] [place] [address] Physician International Accountant Orthopedic Surgery 10/08/24 Carol Sainz, RN Registered Nurse 12/02/24 documented as of this encounter
--- OUTSIDE RECORDS SUMMARY | 2025-01-21 15:45 | XMS_ITS | Encounter Summary ---
Author Organization [facility] Facility Care Team Providers Care Power House Control Room Operator Name Role Phone Harry Jorgensen MD Primary Care Provider + Taqueria Sullivan MD Primary Care Provider Harry Jorgensen MD Primary Care Provider + Truman Moody MD Unavailable [phone] Michael Quiros MD Unavailable [phone] Mohan Rico MD Unavailable [phone] Betty Calvin Unavailable [phone] Sybil Alex [facility] Unavailable Unavailable Vitaliy Alcazar MD Unavailable [phone] Rivka Coello [facility] Unavailable Unavailable Carol Sainz RN Unavailable Unavailable Sybil Alex [facility] Unavailable Unavailable Encounter Details Date Type Department Care Team (Latest Contact Info) Description 01/25/2016 Orders Only [facility] ProviderKrzysztof MD [address] [place] [address] Social History Tobacco Use Types Packs/Day Years Used Date Smoking Tobacco: Never Alcohol Use Standard Drinks/Week Comments No 0 (1 standard drink = 0.6 oz pur e alcohol) Comments Unknown Sex and Gender Information Value Date Recorded Sex Assigned at Not on file 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 Gender Identity Female 01/15/2021 9:27 PM CDT Sexual Orientation Straight 01/15/2021 9: 27 PM CDT documented as of this encounter Plan of Treatment Upcoming Encounters Date Type Department Care Team (Latest Contact Info) Description 01/27/2025 7:30 AM CDT Hospital Encounter [facility] Operating Room [id number] [place] [address] [place] [address] [facility] [address] [place] [address] 01/27/2025 7:30 AM CDT - 01/27/2025 9:00 AM CDT Surgery [facility] Operating Room [id number] [place] [address] [place] [address] [facility] [address] [place], [place] [id number] DEBRIDEMENT LEFT KNEE WOUND WITH WOUND VAC [...] as of this encounter Care Teams Power House Control Room Operator Relationship Specialty Start Date End Date Harry Jorgensen MD PCP - General 09/06/16 Taqueria Sullivan MD [address] [address] PCP - General 08/27/16 09/05/16 Harry Jorgensen MD PCP - General 04/21/14 08/26/16 Vitaliy Alcazar MD [address] [facility] [address] [place] [address] [place] [address] PCP - Home Infusion Attending Infectious Diseases 11/10/24 Truman Moody MD [address] [address] Delivery Mgr Cardiology 02/01/19 09/16/24 Michael Quiros MD [address] [place] [address] Referring Physician Interventional Cardiology 09/17/24 Mohan Rico MD [address] [facility] [address] [place] [address] [place] [address] Consulting Physician Pulmonary Disease 09/17/24 Betty Calvin PA [address] [facility] [address] [place] [address] [place] [address] Physician Patternmaker Plastics Orthopedic Surgery 10/08/24 Sybil Alex, [facility] Pharmacist Pharmacy 10/29/24 11/15/24 Rivka Coello, [facility] Pharmacist Pharmacy 11/15/24 11/23/24 Carol Sainz, RN Registered Nurse 12/02/24 Sybil Alex, [facility] Pharmacist Pharmacy 12/08/24 12/24/24 documented as of this encounter
--- OUTSIDE RECORDS SUMMARY | 2025-01-21 15:45 | XMS_ITS | Encounter Summary ---
Author Organization [facility] Facility Care Team Providers Care Dialysis Clinical Manager Name Role Phone Harry Jorgensen MD Primary Care Provider + Taqueria Sullivan MD Primary Care Provider [phone] Harry Jorgensen MD Primary Care Provider + Truman Moody MD Unavailable [phone] Michael Quiros MD Unavailable [phone] Mohan Rico MD Unavailable [phone] Betty Calvin Unavailable [phone] Sybil Alex formerly [facility] Unavailable Unavailable Vitaliy Alcazar MD Unavailable +[phone] Rivka Coello formerly [facility] Unavailable Unavailable Carol Sainz RN Unavailable Unavailable Sybil Alex formerly [facility] Unavailable Unavailable Encounter Details Date Type Department Care Team (Latest Contact Info) Description 05/13/2016 Orders Only [facility] CLINCONV ProviderKrzysztof MD [address] [place] [address] Social History Tobacco Use Types Packs/Day Years Used Date Smoking Tobacco: Never Alcohol Use Standard Drinks/Week Comments No 0 (1 standard drink = 0.6 oz pur e alcohol) Comments Unknown Sex and Gender Information Value Date Recorded Sex Assigned at Not on file Legal Sex Female 10:24 AM BEAD WORKER SEWING Gender Identity Female 01/15/2021 9:27 PM CDT Sexual Orientation Straight 01/15/2021 9: 27 PM CDT documented as of this encounter Plan of Treatment Upcoming Encounters Date Type Department Care Team (Latest Contact Info) Description 01/27/2025 7:30 AM CDT Hospital Encounter [facility] Operating Room [id number] [place] [address] [place] [address] [facility] [address] [address] 01/27/2025 7:30 AM CDT - 01/27/2025 9:00 AM CDT Surgery [facility] Operating Room [id number] [place] [address] [place] [address] [facility] [address], [place] [id number] DEBRIDEMENT LEFT KNEE WOUND WITH WOUND VAC PLACEMENT Scheduled Procedures Name Priority Associated Diagnoses Date/Ti me DEBRIDEMENT WOUND Open wound of left knee, initial encounter Other complications of procedures, not elsewhere classified, initial encounter 01/27/2025 7:30 AM CDT documented as of this encounter Procedures Procedure Name Priority Date/Time Associated Diagnosis Comments SCAN - LABS 05/13/2016 12:00 AM BEAD WORKER SEWING documented in this encounter Results * SCAN - LABS (05/13/2016 12:00 AM BEAD WORKER SEWING) Narrative 05/13/2016 12:00 AM BEAD WORKER SEWING Ordered by an unspecified provider. us Historical [...] documented as of this encounter Care Teams Dialysis Clinical Manager Relationship Specialty Start Date End Date Harry Jorgensen MD PCP - General 09/06/16 Taqueria Sullivan MD [address] [address] PCP - General 08/27/16 09/05/16 Harry Jorgensen MD PCP - General 04/21/14 08/26/16 Vitaliy Alcazar MD [address] [facility] [address] [place] [address] [place] [address] PCP - Home Infusion Attending Infectious Diseases 11/10/24 Truman Moody MD [address] [address] Product Marketing Specialist Cardiology 02/01/19 09/16/24 Michael Quiros MD [address] [id number] Referring Physician Interventional Cardiology 09/17/24 Mohan Rico MD [address] [facility] [address] [place] [address] [place] [address] Consulting Physician Pulmonary Disease 09/17/24 Betty Calvin PA [address] [facility] [address] [place] [address] [place] [address] Justice Orthopedic Surgery 10/08/24 Sybil Alex, formerly [facility] Pharmacist Pharmacy 10/29/24 11/15/24 Rivka Coello, formerly [facility] Pharmacist Pharmacy 11/15/24 11/23/24 Carol Sainz, RN Registered Nurse 12/02/24 Sybil Alex, formerly [facility] Pharmacist Pharmacy 12/08/24 12/24/24 documented as of this encounter
--- OUTSIDE RECORDS SUMMARY | 2025-01-21 15:45 | XMS_ITS | Encounter Summary ---
Author Organization [facility] Facility Care Team Providers Care Pipefitter Name Role Phone Harry Jorgensen MD Primary Care Provider + Taqueria Sullivan MD Primary Care Provider [phone] Harry Jorgensen MD Primary Care Provider + Truman Moody MD Unavailable [phone] Michael Quiros MD Unavailable [phone] Mohan Rico MD Unavailable [phone] Betty Calvin Unavailable [phone] Sybil Alex [facility] Unavailable Unavailable Vitaliy Alcazar MD Unavailable [phone] Rivka Coello [facility] Unavailable Unavailable Carol Sainz RN Unavailable Unavailable Sybil Alex [facility] Unavailable Unavailable Encounter Details Date Type Department Care Team (Latest Contact Info) Description 05/31/2016 Orders Only [facility] CLINCONV ProviderKrzysztof MD [address] [place] [address] Social History Tobacco Use Types Packs/Day Years Used Date Smoking Tobacco: Never Alcohol Use Standard Drinks/Week Comments No 0 (1 standard drink = 0.6 oz pur e alcohol) Comments Unknown Sex and Gender Information Value Date Recorded Sex Assigned at Not on file Legal Sex Female 10:24 AM SPARE PERSON Gender Identity Female 01/15/2021 9:27 PM CDT Sexual Orientation Straight 01/15/2021 9: 27 PM CDT documented as of this encounter Plan of Treatment Upcoming Encounters Date Type Department Care Team (Latest Contact Info) Description 01/27/2025 7:30 AM CDT Hospital Encounter [facility] Operating Room [address] [place] [address] [place] [address] [facility] [address] [address] 01/27/2025 7:30 AM CDT - 01/27/2025 9:[address] [facility] Operating Room [id number] [place] [address] [place] [address] [facility] [address], [place] [id number] DEBRIDEMENT LEFT KNEE WOUND WITH WOUND VAC PLACEMENT Scheduled Procedures Name Priority Associated Diagnoses Date/Ti me DEBRIDEMENT WOUND Open wound of left knee, initial encounter Other complications of procedures, not elsewhere classified, initial encounter 01/27/2025 7:30 AM CDT documented as of this encounter Procedures Procedure Name Priority Date/Time Associated Diagnosis Comments CARDIOLOGY REPORT 05/31/2016 12: 00 AM SPARE PERSON documented in this encounter Results * CARDIOLOGY REPORT (05/31/2016 12:00 AM SPARE PERSON) Anatomical Region Laterality Modality Other Narrative 05/31/2016 12:00 AM SPARE PERSON Ordered by an unspecified provider. us Historical [...] documented as of this encounter Care Teams Pipefitter Relationship Specialty Start Date End Date Harry Jorgensen MD PCP - General 09/06/16 Taqueria Sullivan MD [address] [address] PCP - General 08/27/16 09/05/16 Harry Jorgensen MD PCP - General 04/21/14 08/26/16 Vitaliy Alcazar MD [address] [facility] [address] [place] [address] [place] [address] PCP - Home Infusion Attending Infectious Diseases 11/10/24 Truman Moody MD [address] [address] Cake Cutter Machine Cardiology 02/01/19 09/16/24 Michael Quiros MD [address] [address] Referring Physician Interventional Cardiology 09/17/24 Mohan Rico MD [address] [facility] [address] [place] [address] [place] [address] Consulting Physician Pulmonary Disease 09/17/24 Betty Calvin PA [address] [facility] [address] [place] [address] [place] [address] Physician Tree Trimming Supervisor Orthopedic Surgery 10/08/24 Sybil Alex [facility] Pharmacist Pharmacy 10/29/24 11/15/24 Rivka Coello [facility] Pharmacist Pharmacy 11/15/24 11/23/24 Carol Sainz, RN Registered Nurse 12/02/24 Sybil Alex, [facility] Pharmacist Pharmacy 12/08/24 12/24/24 documented as of this encounter
--- OUTSIDE RECORDS SUMMARY | 2025-01-21 15:45 | XMS_ITS | Encounter Summary ---
Author Organization [facility] Facility Care Team Providers Care Credit Administration Specialist Name Role Phone Harry Jorgensen MD Primary Care Provider + Taqueria Sullivan MD Primary Care Provider [phone] Harry Jorgensen MD Primary Care Provider + Truman Moody MD Unavailable [phone] Michael Quiros MD Unavailable [phone] Mohan Rico MD Unavailable [phone] Betty Calvin Unavailable [phone] Sybil Alex [facility] Unavailable Unavailable Vitaliy Alcazar MD Unavailable [phone] Rivka Coello [facility] Unavailable Unavailable Carol Sainz RN Unavailable Unavailable Sybil Alex [facility] Unavailable Unavailable Encounter Details Date Type Department Care Team (Latest Contact Info) Description 05/30/2016 Orders Only [facility] CLINCONV ProviderKrzysztof MD [address] [place] [address] Social History Tobacco Use Types Packs/Day Years Used Date Smoking Tobacco: Never Alcohol Use Standard Drinks/Week Comments No 0 (1 standard drink = 0.6 oz pur e alcohol) Comments Unknown Sex and Gender Information Value Date Recorded Sex Assigned at Not on file Legal Sex Female 10:24 AM OPERATOR AUTOMATED PROCESS Gender Identity Female 01/15/2021 9:27 PM CDT Sexual Orientation Straight 01/15/2021 9: 27 PM CDT documented as of this encounter Plan of Treatment Upcoming Encounters Date Type Department Care Team (Latest Contact Info) Description 01/27/2025 7:30 AM CDT Hospital Encounter [facility] Operating Room [id number] [place] [address] [place] [address] [facility] [address] [address] 01/27/2025 7:30 AM CDT - 01/27/2025 9:00 AM CDT Surgery [facility] Operating Room [address] [place] [address] [place] [address] [facility] [address], [place] [id number] DEBRIDEMENT LEFT KNEE WOUND WITH WOUND VAC PLACEMENT Scheduled Procedures Name Priority Associated Diagnoses Date/Ti me DEBRIDEMENT WOUND Open wound of left knee, initial encounter Other complications of procedures, not elsewhere classified, initial encounter 01/27/2025 7:30 AM CDT documented as of this encounter Procedures Procedure Name Priority Date/Time Associated Diagnosis Comments SCAN - LABS 05/30/2016 12:00 AM OPERATOR AUTOMATED PROCESS documented in this encounter Results * SCAN - LABS (05/30/2016 12:00 AM OPERATOR AUTOMATED PROCESS) Narrative 05/30/2016 12:00 AM OPERATOR AUTOMATED PROCESS Ordered by an unspecified provider. us Historical [...] as of this encounter Care Teams Credit Administration Specialist Relationship Specialty Start Date End Date Harry Jorgensen MD PCP - General 09/06/16 Taqueria Sullivan MD [address] [address] PCP - General 08/27/16 09/05/16 Harry Jorgensen MD PCP - General 04/21/14 08/26/16 Vitaliy Alcazar MD [address] [facility] [address] [place] [address] [place] [address] PCP - Home Infusion Attending Infectious Diseases 11/10/24 Truman Moody MD [address] [address] Tiler Cardiology 02/01/19 09/16/24 Michael Quiros MD [address] 899750 Referring Physician Interventional Cardiology 09/17/24 Mohan Rico MD [address] [facility] [address] [place] [address] [place] [address] Consulting Physician Pulmonary Disease 09/17/24 Betty Calvin PA [address] [facility] [address] [place] [address] [place] [address] Physician Compounder Helper Orthopedic Surgery 10/08/24 Sybil Alex, [facility] Pharmacist Pharmacy 10/29/24 11/15/24 Rivka Coello, [facility] Pharmacist Pharmacy 11/15/24 11/23/24 Carol Sainz, RN Registered Nurse 12/02/24 Sybil Alex, [facility] Pharmacist Pharmacy 12/08/24 12/24/24 documented as of this encounter
--- OUTSIDE RECORDS SUMMARY | 2025-01-21 15:45 | XMS_ITS | Encounter Summary ---
Author Organization [facility] Facility Care Team Providers Care Infantry Weapons Crewmember Name Role Phone Harry Jorgensen MD Primary Care Provider + Taqueria Sullivan MD Primary Care Provider [phone] Harry Jorgensen MD Primary Care Provider + Truman Moody MD Unavailable [phone] Michael Quiros MD Unavailable [phone] Mohan Rico MD Unavailable [phone] Betty Calvin Unavailable [phone] Sybil Alex [facility] Unavailable Unavailable Vitaliy Alcazar MD Unavailable [phone] Rivka Coello [facility] Unavailable Unavailable Carol Sainz RN Unavailable Unavailable Sybil Alex [facility] Unavailable Unavailable Encounter Details Date Type Department Care Team (Latest Contact Info) Description 07/22/2016 Orders Only [facility] CLINCONV ProviderKrzysztof MD [address] [place] [address] Social History Tobacco Use Types Packs/Day Years Used Date Smoking Tobacco: Never Alcohol Use Standard Drinks/Week Comments No 0 (1 standard drink = 0.6 oz pur e alcohol) Comments Unknown Sex and Gender Information Value Date Recorded Sex Assigned at Not on file Legal Sex Female 10:24 AM ELECTRICIAN MAINTENANCE Gender Identity Female 01/15/2021 9:27 PM CDT Sexual Orientation Straight 01/15/2021 9: 27 PM CDT documented as of this encounter Plan of Treatment Upcoming Encounters Date Type Department Care Team (Latest Contact Info) Description 01/27/2025 7:30 AM CDT Hospital Encounter [facility] Operating Room [address] [place] [address] [place] [address] [facility] [address] [address] 01/27/2025 7:30 AM CDT - 01/27/2025 9:00 AM CDT Surgery [facility] Operating Room [address] [place] [address] [place] [address] [facility] [address], [place] [id number] DEBRIDEMENT LEFT KNEE WOUND WITH WOUND VAC PLACEMENT Scheduled Procedures Name Priority Associated Diagnoses Date/Ti me DEBRIDEMENT WOUND Open wound of left knee, initial encounter Other complications of procedures, not elsewhere classified, initial encounter 01/27/2025 7:30 AM CDT documented as of this encounter Procedures Procedure Name Priority Date/Time Associated Diagnosis Comments SCAN - LABS 07/08/2016 12:00 AM ELECTRICIAN MAINTENANCE documented in this encounter Results * SCAN - LABS (07/08/2016 12:00 AM ELECTRICIAN MAINTENANCE) Narrative 07/08/2016 12:00 AM ELECTRICIAN MAINTENANCE Ordered by an unspecified provider. us Historical [...] documented as of this encounter Care Teams Infantry Weapons Crewmember Relationship Specialty Start Date End Date Harry Jorgensen MD PCP - General 09/06/16 Taqueria Sullivan MD [address] [address] PCP - General 08/27/16 09/05/16 Harry Jorgensen MD PCP - General 04/21/14 08/26/16 Vitaliy Alcazar MD [address] [facility] [address] [place] [address] [place] [address] PCP - Home Infusion Attending Infectious Diseases 11/10/24 Truman Moody MD [address] [address] Clerical Manager Cardiology 02/01/19 09/16/24 Michael Quiros MD [address] 267[address] Referring Physician Interventional Cardiology 09/17/24 Mohan Rico MD [address] [facility] [address] [place] [address] [place] [address] Consulting Physician Pulmonary Disease 09/17/24 Betty Calvin PA [address] [facility] [address] [place] [address] [place] [address] Physician Machine Cell Tuber Orthopedic Surgery 10/08/24 Sybil Alex, [facility] Pharmacist Pharmacy 10/29/24 11/15/24 Rivka Coello, [facility] Pharmacist Pharmacy 11/15/24 11/23/24 Carol Sainz, RN Registered Nurse 12/02/24 Sybil Alex, [facility] Pharmacist Pharmacy 12/08/24 12/24/24 documented as of this encounter
--- OUTSIDE RECORDS SUMMARY | 2025-01-21 15:46 | XMS_ITS | Encounter Summary ---
Author Organization [facility] Address [address] [place] [address] Care Team Providers Care Skein Spooler Name Role Phone Harry Jorgensen MD Primary Care Provider [phone] Encounter Details Date Type Department Care Team (Latest Contact Info) Description 05/06/2022 12:45 PM MEDICAL OFFICER Hospital Encounter [address] [address] Curtis [place]ás[place] [address] [place] [address] [facility] [employer] Social History Tobacco Use Types [...] on file Legal Sex Female 6:34 PM MEDICAL OFFICER Gender Identity Not on file Sexual Orientation [...] Under Investigation 05/08/2022 05/08/2022 05/08/2022 3:08 PM MEDICAL OFFICER COVID-19 Confirmed 05/08/2022 05/08/2022 4:33 AM MEDICAL OFFICER CDIFF Under Investigation 05/17/2022 05/17/2022 11:13 PM MEDICAL OFFICER documented as of this encounter Care Teams Skein Spooler Relationship Specialty Start Date End Date Harry Jorgensen MD [address] [place] [phone] PCP - General Family Medicine 05/02/22 documented as of this encounter
--- OUTSIDE RECORDS SUMMARY | 2025-01-21 15:46 | XMS_ITS | Encounter Summary ---
Author Organization [facility] Facility Care Team Providers Care Family Service Aide Name Role Phone Harry Jorgensen MD Primary Care Provider + Truman Moody MD Unavailable [phone] Michael Quiros MD Unavailable [phone] Mohan Rico MD Unavailable [phone] Betty Calvin Unavailable [phone] Sybil Alex [facility] Unavailable Unavailable Vitaliy Alcazar MD Unavailable [phone] Rivka Coello [facility] Unavailable Unavailable Carol Sainz RN Unavailable Unavailable Sybil Alex [facility] Unavailable Unavailable Encounter Details Date Type Department Care Team (Latest Contact Info) Description 08/07/2018 Orders Only [facility] CLINCONV ProviderKrzysztof MD [address] [place] [address] Social History Tobacco Use Types Packs/Day Years Used Date Smoking Tobacco: Never Alcohol Use Standard Drinks/Week Comments No 0 (1 standard drink = 0.6 oz pur e alcohol) Comments Unknown Sex and Gender Information Value Date Recorded Sex Assigned at Not on file Legal Sex Female 10:24 AM MENTAL TELEPATHIST Gender Identity Female 01/15/2021 9:27 PM CDT Sexual Orientation Straight 01/15/2021 9: 27 PM CDT documented as of this encounter Plan of Treatment Upcoming Encounters Date Type Department Care Team (Latest Contact Info) Description 01/27/2025 7:30 AM CDT Hospital Encounter [facility] Operating Room [address] [place] [address] [place] [address] [facility] [address], [place] [id number] 01/27/2025 7:30 AM CDT - 01/27/2025 9:[address] [facility] Operating Room [address] [place] [address] [place] [address] [facility] [address], [place] [id number] DEBRIDEMENT LEFT KNEE WOUND WITH WOUND VAC PLACEMENT Scheduled Procedures Name Priority Associated Diagnoses Date/Ti me DEBRIDEMENT WOUND Open wound of left knee, initial encounter Other complications of procedures, not elsewhere classified, initial encounter 01/27/2025 7:30 AM CDT documented as of this encounter Procedures Procedure Name Priority Date/Time Associated Diagnosis Comments SCAN - LABS 08/07/2018 12:00 AM MENTAL TELEPATHIST documented in this encounter Results * SCAN - LABS (08/07/2018 12:00 AM MENTAL TELEPATHIST) Narrative 08/07/2018 12:00 AM MENTAL TELEPATHIST Ordered by an unspecified provider. us Historical [...] documented as of this encounter Care Teams Family Service Aide Relationship Specialty Start Date End Date Harry Jorgensen MD PCP - General 09/06/16 Vitaliy Alcazar MD [address] [facility] [address] [place] [address] [place] [address] PCP - Home Infusion Attending Infectious Diseases 11/10/24 Truman Moody MD Toddler Caregiver Cardiology 02/01/19 09/16/24 Michael Quiros MD [address] [place] [address] Referring Physician Interventional Cardiology 09/17/24 Mohan Rico MD [address] [facility] [address] [place] [address] [place] [address] Consulting Physician Pulmonary Disease 09/17/24 Betty Calvin, PA [address] [facility] [address] [place] [address] [place] [address] Physician Door Liner Orthopedic Surgery 10/08/24 Sybil Alex, [facility] Pharmacist Pharmacy 10/29/24 11/15/24 Rivka Coello, [facility] Pharmacist Pharmacy 11/15/24 11/23/24 Carol Sainz, RN Registered Nurse 12/02/24 Sybil Alex, [facility] Pharmacist Pharmacy 12/08/24 12/24/24 documented as of this encounter
--- OUTSIDE RECORDS SUMMARY | 2025-01-21 15:46 | XMS_ITS | Encounter Summary ---
Author Organization [facility] Facility Care Team Providers Care Strike Planning Applications Name Role Phone Harry Jorgensen MD Primary Care Provider + Truman Moody MD Unavailable [phone] Michael Quiros MD Unavailable [phone] Mohan Rico MD Unavailable [phone] Betty Calvin Unavailable [phone] Sybil Alex [facility] Unavailable Unavailable Vitaliy Alcazar MD Unavailable [phone] Rivka Coello [facility] Unavailable Unavailable Carol Sainz RN Unavailable Unavailable Sybil Alex [facility] Unavailable Unavailable Encounter Details Date Type Department Care Team (Latest Contact Info) Description 01/26/2018 Orders Only [facility] CLINCONV ProviderKrzysztof MD [address] [place] [address] Social History Tobacco Use Types Packs/Day Years Used Date Smoking Tobacco: Never Alcohol Use Standard Drinks/Week Comments No 0 (1 standard drink = 0.6 oz pur e alcohol) Comments Unknown Sex and Gender Information Value Date Recorded Sex Assigned at Not on file Legal Sex Female 10:24 AM CONSTRUCTION MGR Gender Identity Female 01/15/2021 9:27 PM CDT Sexual Orientation Straight 01/15/2021 9: 27 PM CDT documented as of this encounter Plan of Treatment Upcoming Encounters Date Type Department Care Team (Latest Contact Info) Description 01/27/2025 7:30 AM CDT Hospital Encounter [facility] Operating Room [address] [place] [address] [place] [address] [facility] [address], [place] [id number] 01/27/2025 7:30 AM CDT - 01/27/2025 9:00 AM CDT Surgery [facility] Operating Room [address] [place] [address] [place] [address] [facility] [address], [place] [id number] DEBRIDEMENT LEFT KNEE WOUND WITH WOUND VAC [...] documented as of this encounter Care Teams Strike Planning Applications Relationship Specialty Start Date End Date Harry Jorgensen MD PCP - General 09/06/16 Vitaliy Alcazar MD [address] [facility] [address] [place] [address] [place] [address] PCP - Home Infusion Attending Infectious Diseases 11/10/24 Truman Moody MD Coil Former Cardiology 02/01/19 09/16/24 Michael Quiros MD [address] [place] [address] Referring Physician Interventional Cardiology 09/17/24 Mohan Rico MD [address] [facility] [address] [place] [address] [place] [address] Consulting Physician Pulmonary Disease 09/17/24 Betty Calvin PA [address] [facility] [address] [place] [address] [place] [address] Physician Chore Worker Orthopedic Surgery 10/08/24 Sybil Alex, [facility] Pharmacist Pharmacy 10/29/24 11/15/24 Rivka Coello [facility] Pharmacist Pharmacy 11/15/24 11/23/24 Carol Sainz, RN Registered Nurse 12/02/24 Sybil Alex, [facility] Pharmacist Pharmacy 12/08/24 12/24/24 documented as of this encounter
--- OUTSIDE RECORDS SUMMARY | 2025-01-21 15:46 | XMS_ITS | Patient Health Record ---
Author Organization [address] [facility] Address [address] [place] [address] Care Team Providers Care Automotive Paint Technician Name Role Phone Harry Jorgensen M.D. 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 [address] [place] [address] 11/24/2024 Sharee Enciso Plan Of Treatment No Information Insurance Providers Payer Name Payer Address Payer Phone Subscriber Number Group Number Insured Name Patient Relationship to Insured Coverage Start Date Coverage End Date Medicare [address] [place] [id number] Haylie Barker Self - patient is the insured [address] [place] [address] [id number] Haylie Barker Self - patient is the insured
--- OUTSIDE RECORDS SUMMARY | 2025-01-21 15:46 | XMS_ITS | Encounter Summary ---
Author Organization [facility] Facility Care Team Providers Care Make Ready Mechanic Name Role Phone Harry Jorgensen MD Primary Care Provider + Truman Moody MD Unavailable [phone] Michael Quiros MD Unavailable [phone] Mohan Rico MD Unavailable [phone] Betty Calvin Unavailable [phone] Sybil Alex [facility] Unavailable Unavailable Vitaliy Alcazar MD Unavailable [phone] Rivka Coello [facility] Unavailable Unavailable Carol Sainz RN Unavailable Unavailable Sybil Alex [facility] Unavailable Unavailable Encounter Details Date Type Department Care Team (Latest Contact Info) Description 01/19/2018 Orders Only [facility] CLINCONV ProviderKrzysztof MD [address] [place] [address] Social History Tobacco Use Types Packs/Day Years Used Date Smoking Tobacco: Never Alcohol Use Standard Drinks/Week Comments No 0 (1 standard drink = 0.6 oz pur e alcohol) Comments Unknown Sex and Gender Information Value Date Recorded Sex Assigned at Not on file Legal Sex Female 10:24 AM BELT 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 Gender Identity Female 01/15/2021 9:27 PM CDT Sexual Orientation Straight 01/15/2021 9: 27 PM CDT documented as of this encounter Plan of Treatment Upcoming Encounters Date Type Department Care Team (Latest Contact Info) Description 01/27/2025 7:30 AM CDT Hospital Encounter [facility] Operating Room [address] [place] [address] [place] [address] [facility] [address], [place] [id number] 01/27/2025 7:30 AM CDT - 01/27/2025 9:00 AM CDT Surgery [facility] Operating Room [address] [place] [address] [place] [address] [facility] [address], [place] [id number] DEBRIDEMENT LEFT KNEE WOUND WITH WOUND VAC [...] documented as of this encounter Care Teams Make Ready Mechanic Relationship Specialty Start Date End Date Harry Jorgensen MD PCP - General 09/06/16 Vitaliy Alcazar MD [address] [facility] [address] [place] [address] PCP - Home Infusion Attending Infectious Diseases 11/10/24 Truman Moody MD Food Porter Cardiology 02/01/19 09/16/24 Michael Quiros MD [address] [place] [address] Referring Physician Interventional Cardiology 09/17/24 Mohan Rico MD [address] [facility] [address] [place] [address] Consulting Physician Pulmonary Disease 09/17/24 Betty Calvin PA [address] [facility] [address] [address] [place] [address] Physician Restaurant Culinary Manager Orthopedic Surgery 10/08/24 Sybil Alex, [facility] Pharmacist Pharmacy 10/29/24 11/15/24 Rivka Coello, [facility] Pharmacist Pharmacy 11/15/24 11/23/24 Carol Sainz, RN Registered Nurse 12/02/24 Sybil Alex, [facility] Pharmacist Pharmacy 12/08/24 12/24/24 documented as of this encounter
--- OUTSIDE RECORDS SUMMARY | 2025-01-21 15:46 | XMS_ITS | Encounter Summary ---
Author Organization [facility] Facility Care Team Providers Care Roving Department Supervisor Name Role Phone Harry Jorgensen MD Primary Care Provider + Truman Moody MD Unavailable [phone] Michael Quiros MD Unavailable [phone] Mohan Rico MD Unavailable [phone] Betty Calvin Unavailable [phone] Sybil Alex [facility] Unavailable Unavailable Vitaliy Alcazar MD Unavailable [phone] Rivka Coello [facility] Unavailable Unavailable Carol Sainz RN Unavailable Unavailable Sybil Alex [facility] Unavailable Unavailable Encounter Details Date Type Department Care Team (Latest Contact Info) Description 08/15/2018 Orders Only MMG CLINCONV ProviderKrzysztof MD [address] [place] [address] Social History Tobacco Use Types Packs/Day Years Used Date Smoking Tobacco: Never Alcohol Use Standard Drinks/Week Comments No 0 (1 standard drink = 0.6 oz pur e alcohol) Comments Unknown Sex and Gender Information Value Date Recorded Sex Assigned at Not on file Legal Sex Female 10:24 AM JEWEL GRINDER Gender Identity Female 01/15/2021 9:27 PM CDT Sexual Orientation Straight 01/15/2021 9: 27 PM CDT documented as of this encounter Plan of Treatment Upcoming Encounters Date Type Department Care Team (Latest Contact Info) Description 01/27/2025 7:30 AM CDT Hospital Encounter [facility] Operating Room [address] [place] [address] [place] [address] [facility] [address], [place] [id number] 01/27/2025 7:30 AM CDT - 01/27/2025 9:00 AM CDT Surgery [facility] Operating Room [address] [place] [address] [place] [address] [facility] [address], [place] [id number] DEBRIDEMENT LEFT KNEE WOUND WITH WOUND VAC [...] documented as of this encounter Care Teams Roving Department Supervisor Relationship Specialty Start Date End Date Harry Jorgensen MD PCP - General 09/06/16 Vitaliy Alcazar MD [address] [facility] [address] [place] [address] PCP - Home Infusion Attending Infectious Diseases 11/10/24 Truman Moody MD Internal Medicine Nurse Cardiology 02/01/19 09/16/24 Michael Quiros MD [address] [place] [address] Referring Physician Interventional Cardiology 09/17/24 Mohan Rico MD [address] [facility] [address] [place] [address] Consulting Physician Pulmonary Disease 09/17/24 Betty Calvin PA [address] [facility] [address] [place] [address] Physician Clinical Pharmacy Technician Orthopedic Surgery 10/08/24 Sybil Alex, [facility] Pharmacist Pharmacy 10/29/24 11/15/24 Rivka Coello [facility] Pharmacist Pharmacy 11/15/24 11/23/24 Carol Sainz, RN Registered Nurse 12/02/24 Sybil Alex, [facility] Pharmacist Pharmacy 12/08/24 12/24/24 documented as of this encounter
--- OUTSIDE RECORDS SUMMARY | 2025-01-21 15:46 | XMS_ITS | Encounter Summary ---
Author Organization [facility] Facility Care Team Providers Care Zmt Operator Name Role Phone Harry Jorgensen MD Primary Care Provider + Truman Moody MD Unavailable [phone] Michael Quiros MD Unavailable [phone] Mohan Rico MD Unavailable [phone] Betty Calvin Unavailable [phone] Sybil Alex [facility] Unavailable Unavailable Vitaliy Alcazar MD Unavailable [phone] Rivka Coello [facility] Unavailable Unavailable Carol Sainz RN Unavailable Unavailable Sybil Alex [facility] Unavailable Unavailable Encounter Details Date Type Department Care Team (Latest Contact Info) Description 07/29/2018 Orders Only MMG CLINCONV ProviderKrzysztof MD [address] [place] [address] Social History Tobacco Use Types Packs/Day Years Used Date Smoking Tobacco: Never Alcohol Use Standard Drinks/Week Comments No 0 (1 standard drink = 0.6 oz pur e alcohol) Comments Unknown Sex and Gender Information Value Date Recorded Sex Assigned at Not on file Legal Sex Female 10:24 AM GERIATRIC NURSE Gender Identity Female 01/15/2021 9:27 PM CDT Sexual Orientation Straight 01/15/2021 9: 27 PM CDT documented as of this encounter Plan of Treatment Upcoming Encounters Date Type Department Care Team (Latest Contact Info) Description 01/27/2025 7:30 AM CDT Hospital Encounter [facility] Operating Room [address] [place] [address] [place] [address] [facility] [address], [place] [id number] 01/27/2025 7:30 AM CDT - 01/27/2025 9:00 AM CDT Surgery [facility] Operating Room [address] [place] [address] [place] [address] [facility] [address], [place] [phone] DEBRIDEMENT LEFT KNEE WOUND WITH WOUND VAC PLACEMENT Scheduled Procedures Name Priority Associated Diagnoses Date/Ti me DEBRIDEMENT WOUND Open wound of left knee, initial encounter Other complications of procedures, not elsewhere classified, initial encounter 01/27/2025 7:30 AM CDT documented as of this encounter Procedures Procedure Name Priority Date/Time Associated Diagnosis Comments SCAN - LABS 07/29/2018 12:00 AM GERIATRIC NURSE CARDIOLOGY REPORT 07/29/2018 12: 00 AM GERIATRIC NURSE documented in this encounter Results * SCAN - LABS (07/29/2018 12:00 AM GERIATRIC NURSE) Narrative 07/29/2018 12:00 AM GERIATRIC NURSE Ordered by an unspecified provider. us Historical Provider Final Res ult * CARDIOLOGY REPORT (07/29/2018 12:00 AM GERIATRIC NURSE) Anatomical Region Laterality Modality Other Narrative 07/29/2018 12:00 AM GERIATRIC NURSE Ordered by an unspecified provider. us Historical [...] documented as of this encounter Care Teams Zmt Operator Relationship Specialty Start Date End Date Harry Jorgensen MD PCP - General 09/06/16 Vitaliy Alcazar MD [address] [facility] [address] [place] [address] PCP - Home Infusion Attending Infectious Diseases 11/10/24 Truman Moody MD Pillowcase Cleaner Cardiology 02/01/19 09/16/24 Michael Quiros MD [address] [place] [address] Referring Physician Interventional Cardiology 09/17/24 Mohan Rico MD [address] [facility] [address] [place] [address] Consulting Physician Pulmonary Disease 09/17/24 Betty Calvin PA [address] [facility] [address] [place] [address] Physician Director [place] Sales Orthopedic Surgery 10/08/24 Sybil Alex, [facility] Pharmacist Pharmacy 10/29/24 11/15/24 Rivka Coello, [facility] Pharmacist Pharmacy 11/15/24 11/23/24 Carol Sainz, RN Registered Nurse 12/02/24 Sybil Alex, [facility] Pharmacist Pharmacy 12/08/24 12/24/24 documented as of this encounter
--- OUTSIDE RECORDS SUMMARY | 2025-01-21 15:46 | XMS_ITS | Encounter Summary ---
Author Organization [facility] Facility Care Team Providers Care Tracer Lathe Set Up Operator Name Role Phone Harry Jorgensen MD Primary Care Provider + Truman Moody MD Unavailable [phone] Michael Quiros MD Unavailable [phone] Mohan Rico MD Unavailable [phone] Betty Calvin Unavailable [phone] Sybil Alex [facility] Unavailable Unavailable Vitaliy Alcazar MD Unavailable [phone] Rivka Coello [facility] Unavailable Unavailable Carol Sainz RN Unavailable Unavailable Sybil Alex [facility] Unavailable Unavailable Encounter Details Date Type Department Care Team (Latest Contact Info) Description 01/21/2018 Orders Only MMG CLINCONV ProviderKrzysztof MD [address] [place] [address] Social History Tobacco Use Types Packs/Day Years Used Date Smoking Tobacco: Never Alcohol Use Standard Drinks/Week Comments No 0 (1 standard drink = 0.6 oz pur e alcohol) Comments Unknown Sex and Gender Information Value Date Recorded Sex Assigned at Not on file Legal Sex Female 10:24 AM PREPRESS SPECIALIST Gender Identity Female 01/15/2021 9:27 PM CDT Sexual Orientation Straight 01/15/2021 9: 27 PM CDT documented as of this encounter Plan of Treatment Upcoming Encounters Date Type Department Care Team (Latest Contact Info) Description 01/27/2025 7:30 AM CDT Hospital Encounter [facility] Operating Room [address] [place] [address] [place] [address] [facility] [address], [place] [id number] 01/27/2025 7:30 AM CDT - 01/27/2025 9:00 AM CDT Surgery [facility] Operating Room [address] [place] [address] [place] [address] [facility] [address], [place] [phone] DEBRIDEMENT LEFT KNEE WOUND WITH WOUND VAC [...] documented as of this encounter Care Teams Tracer Lathe Set Up Operator Relationship Specialty Start Date End Date Harry Jorgensen MD PCP - General 09/06/16 Vitaliy Alcazar MD [address] [facility] [address] [place] [address] PCP - Home Infusion Attending Infectious Diseases 11/10/24 Truman Moody MD Paper Machine Back Tender Cardiology 02/01/19 09/16/24 Michael Quiros MD [address] [place] [address] Referring Physician Interventional Cardiology 09/17/24 Mohan Rico MD [address] [facility] [address] [place] [address] Consulting Physician Pulmonary Disease 09/17/24 Betty Calvin PA [address] [facility] [address] [place] [address] Physician Pipe Bender Orthopedic Surgery 10/08/24 Sybil Alex, [facility] Pharmacist Pharmacy 10/29/24 11/15/24 Rivka Coello [facility] Pharmacist Pharmacy 11/15/24 11/23/24 Carol Sainz, RN Registered Nurse 12/02/24 Sybil Alex, [facility] Pharmacist Pharmacy 12/08/24 12/24/24 documented as of this encounter
--- OUTSIDE RECORDS SUMMARY | 2025-01-21 15:46 | XMS_ITS | Clinical Summary ---
Author Organization [facility] Address [address] [place] [address] Care Team Providers Care Kiln Tester Name Role Phone Unavailable Primary Care Provider [...] Comments Blood Pressure 128/65 05/23/2022 7:51 AM SENIOR SALES ADMINISTRATOR Pulse 76 05/23/2022 7:51 AM SENIOR SALES ADMINISTRATOR Temperature 36.6 C (97.9 F) 05/23/2022 7:51 AM SENIOR SALES ADMINISTRATOR Respiratory Rate 18 05/23/2022 7:51 AM SENIOR SALES ADMINISTRATOR Oxygen Saturation 97% 05/23/2022 7:51 AM SENIOR SALES ADMINISTRATOR Inhaled Oxygen Concentration - - Weight 148.8 kg (328 lb) 05/06/2022 6:17 PM SENIOR SALES ADMINISTRATOR Height 165.1 cm (5' 5) 05/06/2022 6:18 PM SENIOR SALES ADMINISTRATOR Body Mass Index 54.58 05/06/2022 6:17 PM SENIOR SALES ADMINISTRATOR Plan of Treatment Health Maintenance Due Date Last Done Comments Annual Visit Topic 02/28/1951 Hepatitis C Screening 02/28/1966 Pneumococcal Vaccine: 65+ Ye ars (1 of 2 - PCV) 02/28/1998 DTaP/Tdap/Td Vaccines (2 - [...] this topic Medical Devices Implanted Type Area Stock Hanger Device Identifier Shelf Expiration Date Model / Serial / Lot Pacemaker Pacemaker Right: Chest Wall Advance Directives * Full Resuscitation (Latest Code Status on File) Date Activated Date Inactivated Comments 05/06/2022 5:17 PM 05/23/2022 1:51 PM
--- OUTSIDE RECORDS SUMMARY | 2025-01-21 15:46 | XMS_ITS | Encounter Summary ---
Author Organization [facility] Facility Care Team Providers Care Insurance Adjustor Name Role Phone Harry Jorgensen MD Primary Care Provider + Truman Moody MD Unavailable [phone] Michael Quiros MD Unavailable [phone] Mohan Rico MD Unavailable [phone] Betty Calvin Unavailable [phone] Sybil Alex [facility] Unavailable Unavailable Vitaliy Alcazar MD Unavailable [phone] Rivka Coello [facility] Unavailable Unavailable Carol Sainz RN Unavailable Unavailable Sybil Alex [facility] Unavailable Unavailable Encounter Details Date Type Department Care Team (Latest Contact Info) Description 05/08/2018 Orders Only [facility]G CLINCONV ProviderKrzysztof MD [address] [place] [address] Social History Tobacco Use Types Packs/Day Years Used Date Smoking Tobacco: Never Alcohol Use Standard Drinks/Week Comments No 0 (1 standard drink = 0.6 oz pur e alcohol) Comments Unknown Sex and Gender Information Value Date Recorded Sex Assigned at Not on file Legal Sex Female 10:24 AM RETAIL ASSISTANT Gender Identity Female 01/15/2021 9:27 PM CDT Sexual Orientation Straight 01/15/2021 9: 27 PM CDT documented as of this encounter Plan of Treatment Upcoming Encounters Date Type Department Care Team (Latest Contact Info) Description 01/27/2025 7:30 AM CDT Hospital Encounter [facility] Operating Room [address] [place] [address] [place] [address] [facility] [address], [place] [id number] 01/27/2025 7:30 AM CDT - 01/27/2025 9:00 AM CDT Surgery [facility] Operating Room [address] [place] [address] [place] [address] [facility] [address], [place] [id number] DEBRIDEMENT LEFT KNEE WOUND WITH WOUND VAC PLACEMENT Scheduled Procedures Name Priority Associated Diagnoses Date/Ti me DEBRIDEMENT WOUND Open wound of left knee, initial encounter Other complications of procedures, not elsewhere classified, initial encounter 01/27/2025 7:30 AM CDT documented as of this encounter Procedures Procedure Name Priority Date/Time Associated Diagnosis Comments CARDIOLOGY REPORT 05/08/2018 12: 00 AM RETAIL ASSISTANT documented in this encounter Results * CARDIOLOGY REPORT (05/08/2018 12:00 AM RETAIL ASSISTANT) Anatomical Region Laterality Modality Other Narrative 05/08/2018 12:00 AM RETAIL ASSISTANT Ordered by an unspecified provider. Historical Provider [...] documented as of this encounter Care Teams Insurance Adjustor Relationship Specialty Start Date End Date Harry Jorgensen MD PCP - General 09/06/16 Vitaliy Alcazar MD [address] [facility] [address] [place] [address] PCP - Home Infusion Attending Infectious Diseases 11/10/24 Truman Moody MD Applications Support Engineer Cardiology 02/01/19 09/16/24 Michael Quiros MD [address] [place] [address] Referring Physician Interventional Cardiology 09/17/24 Mohan Rico MD [address] [facility] [address] [place] [address] Consulting Physician Pulmonary Disease 09/17/24 Betty Calvin, LARRY [address] [facility] [address] [place] [address] Physician Cutter Operator Tile Orthopedic Surgery 10/08/24 Sybil Alex, [facility] Pharmacist Pharmacy 10/29/24 11/15/24 Rivka Coello, [facility] Pharmacist Pharmacy 11/15/24 11/23/24 Carol Sainz, EK[place] Registered Nurse 12/02/24 Sybil Alex, [facility] Pharmacist Pharmacy 12/08/24 12/24/24 documented as of this encounter
--- OUTSIDE RECORDS SUMMARY | 2025-01-21 15:46 | XMS_ITS | Clinical Summary ---
Author Organization [facility] Address [address] [place] [address] Care Team Providers Care Taper/Finisher Name Role Phone Harry Jorgensen MD Primary Care Provider + Michael Quiros MD Unavailable [phone] Mohan Rico MD Unavailable [phone] Betty Calvin Unavailable [phone] Vitaliy Alcazar MD Unavailable [phone] Carol Sainz RN Unavailable Unavailable Allergies Active Allergy Reactions Criticality [...] Active verapamiL (CALAN) 120 mg tablet Take 0.5 tablets (60 mg total) by mouth daily as needed (for AFib rhythm) Active levothyroxine (SYNTHROID) 150 mcg tablet Take 1 tablet (150 mcg total) by mouth die turner before breakfast Active sotaloL (BETAPACE) 160 mg [...] ns:Paroxysmal atrial fibrillation (HCC),PAF (paroxysmal atrial fibrillation) TAKE 1 TABLET BY MOUTH EVERY DAY 90 tablet 2 023 Active rosuvastatin (CRESTOR) 5 mg tablet TAKE 1 TABLET BY MOUTH EVERY DAY 90 tablet 3 023 Active Additional Information Patient taking differently: 10 mg oral Nightly, Indications: hyperlipidemia, Informant: Self, Reported on 01/18/2025 calcium amino acid chelate 200 mg calcium tablet Take by mouth Active trospium (SANCTURA) 20 mg tablet Take 1 tablet (20 mg total) by mouth 2 (two) times a day Active furosemide (LASIX) 40 mg tablet Take 1 tablet (40 mg total) by mouth daily Active ACETAMINOPHEN EXTRA STRENGTH ORAL Take 2 tablets by mouth 2 (two) times a day Active potassium chloride ER 10 mEq CR tablet Take 1 tablet/capsule (10 mEq total) by mouth daily Active rivaroxaban (XARELTO) 10 mg tablet Take 1 tablet (10 mg total) by mouth nightly 30 tablet Active Additional Information Patient not taking.Reported on 01/18/2025 polyethylene glycol (MIRALAX) 17 gram/dose bulk powderIndicatio ns:constipation Take 17 g by mouth daily 510 g Active senna-docusate (PERICOLACE) 8.6-50 mg Take 1 tablet by mouth 2 (two) times a day as needed for constipation 60 tablet Active fluticasone propionate (FLONASE) 50 mcg/actuation nasal sprayIndication s:Allergic Rhinitis Administer 1 spray into each nostril daily Active traMADoL (ULTRAM) 50 mg tabletIndicatio ns:Aftercare following right knee joint replacement surgery Take 1 tablet (50 mg total) by mouth every 6 (six) hours as needed for pain 30 tablet Active doxycycline hyclate 100 mg capsule Active ampicillin (PRINCIPEN) 500 mg capsule Take 1 capsule (500 mg total) by mouth 4 (four) times a day 60 capsule Active Xarelto 20 mg tablet Take 1 tablet (20 mg total) by mouth nightly 024 2024 Discontinued(P atient Reported) loperamide (IMODIUM) 2 mg capsule Take 1 capsule (2 mg total) by mouth 4 (four) times a day as needed for diarrhea 30 capsule 025 2024 Discontinued cefepime 2,000 mg in sterile water 20 mL IV syringeIndicati ons:Postoperati ve wound infection Give 2,000 mg (20 mL) by slow IV push into a venous catheter every 12 hours over 3-5 minutes. Remove dose from refrigerator 1-2 hours prior to use 600 mL 5 11:59 PM CDT 025 2024 sodium chloride 0.9% flush syringeIndicati ons:Postoperati ve wound infection Infuse 10 mL IV as needed for line care 02776 mL 5 11:59 PM CDT 025 2024 Discontinued(T herapy completed) heparin 10 unit/mL syringe flush syringeIndicati ons:Maintain Patency of Indwelling Vascular Catheter Infuse 5 mL (50 Units total) IV as needed (line care) [id number] mL 5 11:59 PM CDT 025 2024 Discontinued(T herapy completed) ciprofloxacin (CIPRO) 250 mg tablet Take 2 tablets (500 mg total) by mouth 2 (two) times a day for 7 days 28 tablet 025 2024 Discontinued(R eorder) sulfamethoxazol e-trimethoprim (BACTRIM DS) 800-160 mg per tablet Take 1 tablet (160 mg of trimethoprim total) by mouth 2 (two) times a day for 7 days 14 tablet 025 2024 ciprofloxacin (CIPRO) 500 mg tabletIndicatio ns:Postoperativ e wound dehiscence, subsequent encounter,S/P total knee arthroplasty, right Take 1 tablet (500 mg total) by mouth 2 (two) times a day 60 tablet 025 2024 Discontinued Active Problems Problem Noted Date Diagnosed Date Open wound of left knee 01/21/2025 Other complications of proce dures, not elsewhere classified, initial encounter 01/21/2025 Wound dehiscence, surgical 12/20/2024 Impairment of balance 12/20/2024 Lymphedema 12/20/2024 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 We shared this image with LARRY Calvin. She advised and we ordered cephalexin 500 mg p.o. t.i.d. for 5 days with the expectation that there will be a follow up imaging in Friday that in turn can be shared with the PA. The patient is so reassured. Assessment & Plan (10/16/2024 1:57 PM CDT): At her request I have discontinued the [place] and ordered tramadol 50 mg every 6 [...] We will continue the scripting of the [place]. Assessment & Plan (10/13/2024 6:07 PM CDT): This is subacute but stable and her surgeon is Dr. Marsh. We will continue her [place] every 4 hours prn Chronic diastolic heart failure 09/21/2024 Primary osteoarthritis of right knee 07/20/2024 Chronic [...] 07/22/2022 Assessment & Plan (07/24/2022 1:17 PM BILLING ASSISTANT): Patient had positive guaiac test, required no imaging. On Eliquis for AFib. Iron panel done, showed deficiency. Hg from 14>>>9. Will start ferrous sulfate 325 mg daily. Monitor H&H Assessment & Plan (07/22/2022 3:03 PM BILLING ASSISTANT): guiac positive, no indication for scope, repeat CBC this week, continue daily iron with GI f/u Unspecified sequelae of cerebral infarction 07/10 Arthropathy 06/17/2022 History of ankle fusion 06/16/2022 Assessment & Plan (06/16/2022 5:15 PM BILLING ASSISTANT): Patient has history of right ankle fusion. Secondarily patient has weakness in right leg and can not bear full pressure on it. Continue PT/OT. Follow-up orthopedic outpatient Abnormal gait 06/07/2022 COVID-19 06/07/2022 Fracture of patella 06/07/2022 Congenital hypothyroidism without goiter 022 Muscle weakness (generalized) 05/23/2022 Other lack of coordination 05/23/2022 Personal history of COVID-19 05/23/2022 Primary generalized (osteo)arthritis 05/23/2022 Hyperlipidemia 05/06/2022 Assessment & Plan (10/13/2024 6:08 PM CDT): Continue rosuvastatin 5 mg daily Snoring 04/30/2022 Assessment & Plan (04/30/2022 11:40 AM BILLING ASSISTANT): The patient presents with snoring and daytime [...] with mobility as tolerated Current use of assisted anticoagulation 022 Pure hypercholesterolemia, unspecified Assessment & Plan (07/24/2022 1:13 PM BILLING ASSISTANT): On Crestor 5 mg daily Hypothyroidism 10/11/2021 Assessment & Plan (08/12/2022 1:28 PM BILLING ASSISTANT): Stable on Synthroid 150 mcg daily, monitor TSH Assessment & Plan (07/24/2022 1:17 PM BILLING ASSISTANT): TSH 3.05. Continue Synthroid 150 mcg daily Assessment & Plan (07/02/2022 2:17 PM BILLING ASSISTANT): Continue current Synthroid dose Assessment & Plan (06/16/2022 5:18 PM BILLING ASSISTANT): TSH 1.4. Continue Synthroid 150 mcg daily Primary osteoarthritis of both first carpometaca rpal joints 10/11/2020 High risk medication use 08/16/2020 Assessment & Plan (08/16/2020 10:24 AM BILLING ASSISTANT): Recent EKG showed QTC okay around 430. Continue 160 b.i.d. 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 Likely secondary to UTI. No fevers now since been started on antibiotic. Will repeat labs next week Encounter for monitoring diuretic therapy 2018 Assessment & Plan (02/09/2020 9:37 AM CDT): Continue Coumadin Assessment & Plan (08/04/2019 9:48 AM BILLING ASSISTANT): Continue Coumadin Assessment & Plan (02/03/2019 9:13 AM CDT): Continue Coumadin. Non-rheumatic tricuspid valve insufficiency 12/07 Dyslipidemia 01/28/2017 Overview (10/29/2018): improved with diet, had myalgias on atorvastatin 10 mgs daily, if needed consider low dose crestor but no stat for now Assessment & Plan (06/16/2022 5:18 PM BILLING ASSISTANT): Patient currently on Crestor 5 mg daily. [...] okay Assessment & Plan (08/16/2020 10:12 AM BILLING ASSISTANT): Rate response okay Assessment & Plan (02/09/2020 [...] Damico Assessment & Plan (08/12/2022 1:28 PM BILLING ASSISTANT): Rate controlled on exam, continue sotalol and verapamil, b.i.d. Eliquis Assessment & Plan (08/04/2022 7:50 PM BILLING ASSISTANT): Rate controlled, decrease verapamil d/t soft SBP, cont sotalol and eliquis, monitor BP daily Assessment & Plan (07/24/2022 1:13 PM BILLING ASSISTANT): Rate controlled. Continue verapamil 240 mg daily, 120 mg p.r.n., sotalol 160 mg b.i.d., Eliquis. Follow-up cardiology, Dr. Damico outpatient Assessment & Plan (07/22/2022 3:00 PM BILLING ASSISTANT): Controlled; continue verapamil, sotalol, eliquis. Follows caridology stefani Assessment & Plan (07/09/2022 8:09 PM BILLING ASSISTANT): Rate controlled on exam, continue sotalol, verapamil, eliquis Assessment & Plan (06/16/2022 5:16 PM BILLING ASSISTANT): Currently rate controlled. Continue home med sotalol 160 mg b.i.d., verapamil 240 mg daily, Eliquis 5 mg b.i.d.. Follow-up cardiology, Dr. Damico outpatient Assessment & Plan (06/13/2022 9:58 AM BILLING ASSISTANT): Rate controlled on exam, continue sotalol, verapamil, Eliquis, follows with Cardiology stefani Assessment & Plan (08/16/2020 10:26 AM BILLING ASSISTANT): [place] remains very low less 1%. Continue sotalol and Coumadin Assessment & Plan (02/09/2020 9:36 AM CDT): No episodes noted. Continue sotalol warfarin. Assessment & Plan (08/04/2019 9:47 AM BILLING ASSISTANT): Overall burden remains very low. Symptomatic when it occurs. Happen about 1% of the time. Told her she can take a for rapid male with symptoms. Otherwise continue sotalol Assessment & Plan (02/03/2019 9:13 AM CDT): Overall burden less than 1%. Symptomatic with episodes longest 9 hours. History of pacemaker 08/16/2008 Assessment & Plan (08/16/2020 10:22 AM BILLING ASSISTANT): Check today shows normal function. Again rare noise from isometrics noted. 50% a paced 2% V paced excellent lead function. Assessment & Plan (02/09/2020 9:37 AM CDT): Check today shows sinus rhythm. 46% a paced 7% V paced. Occasional noise on each lead. Will total burden remains low. Assessment & Plan (08/04/2019 9:48 AM BILLING ASSISTANT): Check today shows normal function. Underlying rhythm [...] therapy. Assessment & Plan (06/10/2023 10:51 AM BILLING ASSISTANT): Due to continued symptoms, the patient will [...] months. Assessment & Plan (06/16/2022 5:20 PM BILLING ASSISTANT): Patient has history of MARIANO, unable to [...] 90 Assessment & Plan (07/31/2022 6:18 AM BILLING ASSISTANT): Blood pressure soft today, vital signs log reviewed, always has controlled blood pressure. Currently on Lasix 60 mg for 5 days verapamil. Monitor blood pressure, adjust meds accordingly Assessment & Plan (07/24/2022 1:12 PM BILLING ASSISTANT): Blood pressure controlled. Continue Lasix 40 mg daily, verapamil. Assessment & Plan (07/05/2022 6:40 PM BILLING ASSISTANT): Blood pressure with mild fluctuation, overall remains below 140s. Continue same meds, no change in doses. Assessment & Plan (06/16/2022 5:17 PM BILLING ASSISTANT): Blood pressure controlled. Continue same meds Lasix [...] 10/18/2024 Assessment & Plan (04/23/2023 9:16 AM BILLING ASSISTANT): Patient is doing very well overall. Her [...] Assessment & Plan (08/22/2022 12:46 PM CDT): [place], moist, healing, continue daily dressing changes with Santyl and foam pad, follows outpatient [facility] wound clinic Assessment & Plan (08/19/2022 3:38 PM CDT): Continues to improve on serial exams, continue daily dressing changes, clean with wound cleanser, pat dry and apply Santyl to wound bed, phone cover with foam pad. Compression stockings to bilateral lower extremity daily, PT OT as tolerated Assessment & Plan (08/12/2022 1:25 PM BILLING ASSISTANT): Wound is healing slowly, has notably decreased in size, remains with right lower extremity edema. Continue daily dressing changes, keep skin clean and dry, elevate right lower extremity while resting. Appreciate wound MD xander tomorrow Assessment & Plan (08/04/2022 7:49 PM BILLING ASSISTANT): Complete po linezolid course x 10 days, wound clinic appt 08/09, daily dressing changes clean with wound cleanser, cover with calcium alginate. Cont PT/OT,elevate while resting Assessment & Plan (08/02/2022 11:10 AM BILLING ASSISTANT): Continue daily dressing changes clean with wound cleanser, pat dry apply calcium alginate, followed by wound nurse. Await final culture report, no leukocytosis on labs, LE doppler negative. Assessment & Plan (08/01/2022 9:50 AM BILLING ASSISTANT): Wound cleansed using wound cleanser and patted [...] change. Assessment & Plan (07/31/2022 6:19 AM BILLING ASSISTANT): Right leg wound stable with mild-moderate serosanguineous discharge due to increased edema lower extremities. Sutures in place, will remove tomorrow. Continue aggressive wound care, oral antibiotic doxycycline. Assessment & Plan (07/28/2022 8:32 AM BILLING ASSISTANT): Sutures are clean and dry, hematoma has decreased in side with dried blood underneath wound, nursing advised to clean with wound cleanser, may apply LANIE to site and cover. Complete p.o. doxycycline Assessment & Plan (07/24/2022 1:02 PM BILLING ASSISTANT): Patient to complete doxycycline course till 07/28/2022. Continue aggressive wound care. Suture placed 07/17/2022, will be removed in 2 weeks. Assessment & Plan (07/22/2022 2:59 PM BILLING ASSISTANT): Will add p.o. doxycycline due to concern for infection within formed hematoma, monitor skin daily, may clean with wound cleanser and pat dry cover with foam pad, f/u for suture removal Acute on chronic combined sy stolic (congestive) and diastolic (congestive) heart failure 07/19/2022 10/18/2024 Assessment & Plan (07/24/2022 1:12 PM BILLING ASSISTANT): ProBNP 6086 had edema. Received IV Lasix. For now will continue Lasix 40 mg daily. Monitor lytes and weight. If creatinine remains precious may consider increasing Lasix dose Unspecified open wound, righ t lower leg, subsequent encounter 07/19/2022 10/18/2024 Acute pyelonephritis 07/17/2022 025 Assessment & Plan (07/31/2022 6:19 AM BILLING ASSISTANT): Infection resolved. Renal function stable. Able to void completely. Encourage oral hydration. Assessment & Plan (07/28/2022 8:34 AM BILLING ASSISTANT): Resolved , renal function normal, continue to encourage oral hydration, assist with voiding with toileting schedule. Bladder scan q.shift Assessment & Plan (07/24/2022 1:04 PM BILLING ASSISTANT): Secondary to UTI, urine culture positive for E coli. Treated inpatient with IV ceftriaxone, IV fluid. Transition later to oral cefuroxime. Patient to continue cefuroxime till 07/26/2022. Encourage oral hydration. Will continue bladder scan Q shift x4 days make sure has no urinary retention Assessment & Plan (07/22/2022 3:05 PM BILLING ASSISTANT): Treated with IV ceftriaxone and IVF, renal function normal at DC, continue PO cefuroxime, encourage oral hydration Vomiting and diarrhea 07/09/20222024 Assessment & Plan (07/11/2022 9:27 AM BILLING ASSISTANT): Resolved, continue to advance diet as tolerated, encourage oral hydration Assessment & Plan (07/09/2022 7:44 PM BILLING ASSISTANT): Give prn zofran now 4mg, ADAT, consider gastroenteritis, no acute abd pain, monitor sx, notify provider for change in condition or VS Acute cystitis without hematuria 06/27/2022 10/18/2024 Assessment & Plan (07/05/2022 6:38 PM BILLING ASSISTANT): Patient has completed antibiotic course for UTI. Urinary symptoms improved. Encourage oral hydration. Will order labs, CBC/BMP for 07/08/22. Assessment & Plan (07/02/2022 2:15 PM BILLING ASSISTANT): Symptoms improving, complete p.o. doxycycline course, continue to encourage oral hydration, will recheck renal function, p.r.n. Tylenol for pain or fever Assessment & Plan (06/28/2022 11:33 AM BILLING ASSISTANT): Continue p.o. doxycycline course until complete, encourage oral hydration, await formal culture and sensitivities, patient appears clinically improved on exam Assessment & Plan (06/27/2022 7:42 PM BILLING ASSISTANT): Will treat for UTI based on clinical [...] sent Assessment & Plan (06/27/2022 6:23 PM BILLING ASSISTANT): Patient UA suggestive of UTI, urine culture positive for E coli> 100 K. Has been on doxycycline 100 mg b.i.d. x7 days. Based on sensitivity patient on appropriate antibiotic. Encourage oral hydration.. Will continue to monitor Chills (without fever) 06/25/202210/18 Assessment & Plan (06/26/2022 10:07 AM BILLING ASSISTANT): No documented fever, however patient lying under blankets, give 650 mg Tylenol p.o. now, will send UA with culture, rapid COVID swab negative. Encourage oral hydration Open wound of right buttock with complication 06/13/1908/22/2022 Assessment & Plan (07/28/2022 8:29 AM BILLING ASSISTANT): Healing as expected, continue to apply barrier cream, patient reports improvement since getting up and using toilet rather than bedpan or depends. Followed by wound nurse Assessment & Plan (07/16/2022 9:22 AM BILLING ASSISTANT): Continue to improve. Apply barrier Cream b.i.d.. Maintain schedule positioning Assessment & Plan (07/02/2022 2:17 PM BILLING ASSISTANT): Healing, apply barrier cream b.i.d., assist with turns and repositioning Assessment & Plan (06/28/2022 11:34 AM BILLING ASSISTANT): Continues to improve, may apply barrier cream, assist with mobility and transfers, assist with frequent toileting Assessment & Plan (06/27/2022 6:25 PM BILLING ASSISTANT): Wound right buttock improving. Continue wound care. Encourage patient to reposition/turned Assessment & Plan (06/26/2022 10:06 AM BILLING ASSISTANT): Healing as expected, appears superficial at this point, continue to keep area clean and dry, may apply barrier cream, reposition/turn q.2 hours Assessment & Plan (06/16/2022 5:10 PM BILLING ASSISTANT): Patient has wound to right buttock secondary to bedpan use. Continue Santyl, foam dressing, keep area clean and dry. Patient to be seen by wound doctor today. Patient transferred on Faye, removed today. Assessment & Plan (06/13/2022 10:02 AM BILLING ASSISTANT): Unable to visualize today, patient states wound [...] therapy Assessment & Plan (08/12/2022 1:26 PM BILLING ASSISTANT): Patient has progressed with therapy, she is weight-bearing as tolerated, mobility has increased to/improved, pending discharge home soon. Follow up with Ortho as scheduled. Denies pain Assessment & Plan (08/04/2022 7:49 PM BILLING ASSISTANT): Tolerates therapy with weight bearing, denies pain, discusses going home soon where she lives alone, able to walk with walker. Assessment & Plan (08/02/2022 11:11 AM BILLING ASSISTANT): Denies pain, ambulatory with therapy, continue PT/OT with goal to return home. Assessment & Plan (07/28/2022 8:30 AM BILLING ASSISTANT): Continue PT OT with weight-bearing as tolerated, Tylenol for pain, mobility has improved. Goal to return home, ortho follow-up as scheduled Assessment & Plan (07/24/2022 1:19 PM BILLING ASSISTANT): Patient had a mechanical fall at home, sustained left distal fibular fracture around hold knee prosthesis. Initially NWB. Per Dr. Mckinney, based on repeat imaging recommended weight-bearing status to increase 25% weekly. Patient able to walk with walker, 85%weight-bearing. Denies any pain. Cont pain mgx, PT/OT. Assessment & Plan (07/22/2022 3:02 PM BILLING ASSISTANT): Mobility improving with 805 weight bewaring, denies pain other than baseline arthritis pain to bilateral knees, continue PT/OT with ortho f/u MD Mckinney Assessment & Plan (07/16/2022 9:23 AM BILLING ASSISTANT): Weight-bearing 50% on left leg, has been tolerating. Denies any pain in left leg. Continue PT/OT. Assessment & Plan (07/11/2022 9:28 AM BILLING ASSISTANT): Progressing with therapy, remains toe-touch weight-bearing but mobility has improved/increased, continue PT/OT, follow-up MD Mckinney Assessment & Plan (07/09/2022 8:08 PM BILLING ASSISTANT): Continues TTWB, tolerating well with slow improvements in condition and mobility, pain is controlled, cont PT/OT with f/u ortho amanda Assessment & Plan (07/05/2022 6:39 PM BILLING ASSISTANT): Patient progressing well with therapy, has now 20% weight-bearing LLE. Likely will advanced to 40% by the end of this week. Assessment & Plan (07/02/2022 2:16 PM BILLING ASSISTANT): Ortho follow-up complete, 20% weight-bearing to left lower extremity, continue PTOT as tolerated, mobility is limited by right knee pain as well. Continue to assist with transfers, reposition frequently while in bed Assessment & Plan (06/28/2022 11:34 AM BILLING ASSISTANT): Denies pain today, patient does have chronic pain to her right knee, await weight-bearing status at follow-up ortho appointment this week, continue PT OT as tolerated Assessment & Plan (06/27/2022 7:42 PM BILLING ASSISTANT): Remains non weight bearing but has still been able to participate in therapy, consider waiting today until symptoms improve; pt denies pain to knee has ortho f/u 06/28 Assessment & Plan (06/26/2022 10:07 AM BILLING ASSISTANT): Pain is controlled, continues to await ortho follow-up appointment on 06/28, remains nonweightbearing, tolerates PT OT, did get fatigued during therapy today due to fevers chills and nausea Assessment & Plan (06/16/2022 5:08 PM BILLING ASSISTANT): Patient had a mechanical fall at home, sustained left distal fibular fracture around hold knee prosthesis. Currently NWB. Will order left knee/fib tib x-ray, results to be faxed to her orthopedic, Dr. Mckinney. Cont pain mgx, PT/OT. Assessment & Plan (06/13/2022 9:57 AM BILLING ASSISTANT): Surgical incision is healed, patient denies need [...] 10/18/2024 Assessment & Plan (08/12/2022 1:26 PM BILLING ASSISTANT): Continue to encourage mobility as tolerated, heart healthy diet, 39 lb weight loss since admission therapy stay Lower extremity edema 10/11/20212024 Assessment & Plan (08/22/2022 12:47 PM CDT): Chronic, continue daily compression stockings, elevate legs while resting Assessment & Plan (07/31/2022 6:20 AM BILLING ASSISTANT): Currently on Lasix 60 mg for 1 week then to resume 40 mg. Encourage leg elevation when resting in chair, compression wrap. Monitor lytes and weight as patient on diuretic Assessment & Plan (07/28/2022 8:33 AM BILLING ASSISTANT): Noted increase in pitting edema to left lower extremity, increase Lasix to 60 mg daily x1 week, then resume 40 mg daily. Continue p.o. potassium supplement, weekly weights, no redness, warmth on exam. Elevate legs while resting, apply compression stocking Assessment & Plan (07/22/2022 3:01 PM BILLING ASSISTANT): Fluctuates, improved, morbid obesity with prolonged immobility d/t fracture, contonue lasix 40mg daily, elevate legs while resting and apply compression stockings with daily skin checks Lethargy 10/11/2021 10/18/2024 Assessment & Plan (07/16/2022 9:21 AM BILLING ASSISTANT): Patient has been feeling today, lethargic associated with mild nausea, though no fever. Tested for COVID was negative. Zofran 4 mg q.6 p.r.n. ordered, stat CBC/BMP, UA culture. Dyspnea on exertion 04/30/2021 10/19/19 25 Localized edema 01/16/2021 10/18/2024 Chest pressure 12/22/2018 10/18/2024 Pain and swelling of left lower extremity 11/17/2018 10/18/2024 Unilateral primary osteoarthritis, right knee 10/22/19 19 10/18/2024 Assessment & Plan (06/13/2022 9:58 AM BILLING ASSISTANT): Pain with weight-bearing, complicated by obesity and [...] Obesity Assessment & Plan (08/16/2020 10:25 AM BILLING ASSISTANT): Encouraged dieting weight loss Assessment & Plan (02/09/2020 9:37 AM CDT): Encouraged dieting and weight loss Assessment & Plan (08/04/2019 9:48 AM BILLING ASSISTANT): Discussed the merits of intermittent fasting. Counseled her on extending daily fasting periods. Assessment & Plan (02/03/2019 9:18 AM CDT): Patient states she is joining weight watchers. Referred otalgia 01/14/2012 10/18/2024 Encounters Date Type Department Care Team Description 01/21/2025 8:15 AM CDT Office Visit [facility] Surgery [address] [place] [address] Medical Office Building 1 [place] [address] Georgie Leon MD Postoperative wound dehiscence, initial encounter (Primary Dx); S/P total knee arthroplasty, right; Wound infection after surgery 01/18/2025 1:45 PM CDT Office Visit [facility] Infectious Disease [address] [place] [address] [address] [place] [address] Vitaliy Alcazar MD Postoperative wound infection (Primary Dx); Postoperative wound dehiscence, subsequent encounter 01/17/2025 9:00 AM CDT Orders Only [facility] Office Building 2 Wound Care [address] [place] [address] 01/12/2025 11:30 AM CDT - 01/12/2025 11:59 PM CDT Hospital Encounter [facility] Bldg [address] OP Lab [address] [place] [address] S/P total knee arthroplasty, right Discharge Disposition: Discharge to home or self care 01/12/2025 11:15 AM CDT Office Visit [facility] Orthopedics and Sports Medicine [address] [place] [phone] Adelfo Marsh MD S/P total knee arthroplasty, right (Primary Dx) 01/10/2025 9:00 AM CDT Orders Only [facility] Building 2 Wound Care [address] [place] [address] 01/06/2025 12:40 PM CDT - 01/06/2025 11:59 PM CDT Hospital Encounter [facility] Lab [address] [place] [address] Discharge Disposition: Discharge to home or self care 01/05/2025 1:36 PM CDT - 01/05/2025 11:59 PM CDT Hospital Encounter [facility] Lab [address] [place] [address] Discharge Disposition: Discharge to home or self care 01/05/2025 Telephone [facility] Pulmonology [address] [place] [phone] Vitaliy Alcazar MD 01/04/2025 Telephone [facility] Medical [facility] Orthopedics and Sports Medicine [address] [place] [address] [place] [phone] Adelfo Marsh MD Med Management 01/03/2025 3:30 PM CDT Orders Only [facility] Medical Office Building 2 Wound Care [address] [place] [address] [place] [address] 01/03/2025 11:30 AM CDT Office Visit [facility] Orthopedics and Sports Medicine [address] [place] [address] [place] [phone] Adelfo Marsh MD S/P total knee arthroplasty, right (Primary Dx); Postoperative wound dehiscence, subsequent encounter 01/03/2025 Telephone [facility] Pulmonology [address] [place] [phone] Alexandrea Yarbrough RN 12/30/2024 4:00 PM CDT Office Visit [facility] Infectious Disease [address] [place] [address] [place] [phone] Vitaliy Alcazar MD Surgical site infection (Primary Dx); S/P total knee arthroplasty, right 12/27/2024 2:45 PM CDT Orders Only [facility] Medical Office Building 2 Wound Care [address] [place] [address] 12/27/2024 1:15 PM CDT Office Visit [facility] Orthopedics and Sports Medicine [address] [place] [phone] Adelfo Marsh MD Postoperative wound dehiscence, subsequent encounter (Primary Dx); S/P total knee arthroplasty, right 12/27/2024 Telephone [facility] Orthopedics and Sports Medicine [address] [place] [phone] Adelfo Marsh MD Med Management 12/24/2024 10:11 AM CDT - 12/24/2024 11:59 PM CDT Hospital Encounter [facility] [place] [address] Discharge Disposition: Discharge to home or self care 12/24/2024 Telephone [facility] Orthopedics and Sports Medicine [address] [place] [phone] Adelfo Marsh MD 12/20/2024 1:00 PM CDT Orders Only [facility] Medical Office Building 2 Wound Care [address] [facility] [address] [place] [address] S/P total knee arthroplasty, right; Postoperative wound dehiscence, subsequent encounter; Open knee wound, right, subsequent encounter 12/20/2024 9:15 AM CDT Office Visit [facility] Orthopedics and Sports Medicine [address] [place] [phone] Betty Calvin PA Postoperative wound dehiscence, subsequent encounter (Primary Dx) 12/17/2024 Home Infusion [facility] Home Infusion Therapy [address] [place] [address] Tsering Frank Postoperative wound infection (Primary Dx) 12/15/2024 Telephone [facility] Orthopedics and Sports Medicine [address] [place] [phone] Adelfo Marsh MD wound update 12/15/2024 Telephone [facility] Orthopedics and Sports Medicine [address] [place] [phone] Adelfo Marsh MD 12/13/2024 Home Infusion [facility] Home Infusion Therapy [address] [place] [address] Sybil Alex gustavo 12/13/2024 Telephone [facility] Surgery [address] [facility] [address]th [place] [address] Zaina Negron 12/08/2024 Plan of Care Documentation C Home Infusion Therapy [address] [place] [address] 12/08/2024 Home Infusion [facility] Home Infusion Therapy [address] [place] [address] Sybil Alex [facility] Postoperative wound infection (Primary Dx) 12/02/2024 4:20 PM CDT - 12/02/2024 6:25 PM CDT Surgery [facility] OR [address] [place] [address] Adelfo Marsh MD INCISION AND DEBRIDEMENT RIGHT KNEE WITH ANTIBIOTIC BEAD PLACEMENT 12/02/2024 3:04 PM CDT Anesthesia Event [facility] OR [address] [place] [address] Amelie Delgado MD Taylor-White, Carlotta A., NP 12/02/2024 2:22 PM CDT - 12/08/2024 4:50 PM CDT Hospital Encounter [address] [address] Adelfo Marsh MD Postoperative wound infection (Primary Dx); Wound infection after surgery; Illness, unspecified; Aftercare following right knee joint replacement surgery Discharge Disposition: Discharge to home, home health skilled care 12/01/2024 10:15 AM CDT Office Visit [facility] Medical [facility] Orthopedics and Sports Medicine [address] [place] [phone] Adelfo Marsh MD S/P total knee arthroplasty, right (Primary Dx); Postoperative wound dehiscence, subsequent encounter 12/01/2024 Orders Only [facility] Medical Office Building 2 Wound Care [address] [place] [address] Blessing Macias PA 11/25/2024 Telephone [facility] Medical [facility] Orthopedics and Sports Medicine [address] [place] [phone] Adelfo Marsh MD referral 11/23/2024 4:47 PM CDT - 11/23/2024 11:59 PM CDT Hospital Encounter [facility] Lab [address] [place] [address] Discharge Disposition: Discharge to home or self care 11/23/2024 10:45 AM CDT Orders Only [facility] Medical Office Building 2 Wound Care [address] [place] [address] Postoperative wound dehiscence, initial encounter 11/22/2024 Telephone [facility] Orthopedics and Sports Medicine [address] [place] [address] [address] [place] [address] Adelfo Marsh MD home health 11/21/2024 Home Infusion [facility] Home Infusion Therapy [address] [place] [address] Rivka Coello, [facility] 11/20/2024 Orders Only [facility] [phone] Unknown, Notinfile 11/19/2024 Orders Only [facility] [phone] Unknown, Notinfile 11/16/2024 Orders Only [facility] [phone] Unknown, Notinfile 11/15/2024 11:00 AM CDT Office Visit [facility] Orthopedics and Sports Medicine [address] [place] [address] [address] [place] [phone] Adelfo Marsh MD S/P total knee arthroplasty, right (Primary Dx); Wound dehiscence 11/09/2024 Orders Only [facility] [phone] Unknown, Notinfile 11/04/2024 8:35 PM CDT Anesthesia Event [address] [address] Truman Noble MD Nicholson, Elizabeth Lee, IS CONSULTANT 11/04/2024 8:00 PM CDT - 11/04/2024 9:15 PM CDT Surgery [address] [address] Wyatt Kim MD Right Knee Washout and wound vac placement 11/04/2024 5:33 PM CDT - 11/08/2024 4:05 PM CDT Hospital Encounter [address] [address] Won Gordon MD Ogbuagu, Chun Seals MD Telemestefanía, Maikel Johns MD Wound dehiscence (Primary Dx); Acute pain of right knee; S/P total knee arthroplasty, right; Open knee wound, right, subsequent encounter Discharge Disposition: Discharge to an Rehab facility 11/04/2024 Telephone [facility] Orthopedics and Sports Medicine [address] [place] [address] [place] [phone] Adelfo Marsh MD Advice Only 11/03/2024 10:30 AM CDT Office Visit [facility] Orthopedics and Sports Medicine [address] [place] [address] [place] [phone] Betty Calvin PA Postoperative wound dehiscence, subsequent encounter (Primary Dx) 11/03/2024 Telephone [facility] Orthopedics and Sports Medicine [address] [place] [address] [place] [phone] Betty Calvin PA 11/03/2024 Orders Only [facility] Orthopedics and Sports Medicine [address] [place] [address] [place] [phone] Betty Calvin PA Postoperative wound dehiscence, initial encounter (Primary Dx) 10/29/2024 Plan of Care Documentation [facility] Home Infusion Therapy [address] [place] [address] 10/29/2024 Home Infusion [facility] Home Infusion Therapy [address] [place] [address] Sybil Alex, [facility] Open knee wound, right, subsequent encounter (Primary Dx) 10/21/2024 1:50 PM CDT Anesthesia Event [facility] OR [address] [place] [address] Amelie Delgado MD Taylor-White, Carlotta A., NP 10/21/2024 1:30 PM CDT - 10/21/2024 3:35 PM CDT Surgery [facility] OR [address] [place] [address] Adelfo Marsh MD INCISION AND DRAINAGE RIGHT KNEE 10/21/2024 12:10 PM CDT - 10/29/2024 2:40 PM CDT Hospital Encounter [address] [address] Adelfo Marsh MD Chowdhury, Farhanaz, MD Wound [...] home health skilled care 10/21/2024 NH/SNF Visit [facility] Post Acute Care [facility] [address] [place] [phone] Elva Hodge NP Aftercare following right knee joint replacement surgery (Primary Dx); Wound dehiscence; COVID-19 10/21/2024 Telephone [facility] Orthopedics and Sports Medicine [address] [facility] [address] [place] [phone] Adelfo Marsh MD 10/21/2024 Orders Only [facility] [address] [place] [phone] Elva Hodge NP from Last 3 Months Immunizations Immunization Administration [...] REPLACE / REMOVE PACEMAKER 01/08/2016 - 02/07/2016 rt chest CATARACT EXTRACTION 12/19/2020 and 12/26/2020 HYSTERECTOMY BUNIONECTOMY [...] Sleep apnea Edema Hyperlipidemia Heart disease Sinusitis Cancer (HCC) squamous self fo rehead, forearm Hypothyroidism Periprosthetic fracture arou nd internal prosthetic left knee joint 06/07/2022 Closed bimalleolar fracture of left ankle with routine healing 04/02/2023 History of COVID-19 10/2024 Recurrent infection of skin knee infected-has wound vac-pt described wound being 9inches long and 4.3 wide-c/o itching & burning of knee Family History Medical History Relation Name Comments [...] drink = 0.6 oz pur e alcohol) [facility] Utilities Answer Date Recorded In the past 12 months has [employer], oil, or [employer] threatened to shut off services in your [...] week 12/03/2024 How often do you attend [facility] or [facility] services? More than 4 times per year 12/03/2024 Do you belong to any clubs o r organizations such as quaker groups, unions, fraternal or athletic groups, or [...] place to sleep or slept in a assisted (including now)? No 04/03/2023 PHQ-9 Answer Date [...] any time in the past 12 m [facility], were you homeless or living in a assisted (including now)? No 12/03/2024 Personal Safety Answer Date Recorded Have you ever been in or are you currently in a harmful physical or emotional relationship or is someone making you feel afraid or unsafe? 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 Gender Identity Female 01/15/2021 9:27 PM CDT Sexual Orientation Straight 01/15/2021 9: 27 PM CDT Obstetrics History Last Filed Vital Signs Vital Sign Reading Time Taken Comments Blood Pressure 132/78 01/18/2025 1:51 PM CDT Pulse 70 01/18/2025 1:51 PM CDT Temperature 36.1 C (97 F) 01/18/2025 1:51 PM CDT Respiratory Rate 18 01/18/2025 1:51 PM CDT Oxygen Saturation 94% 01/18/2025 1:51 PM CDT Inhaled Oxygen Concentration - - Weight 127 kg (280 lb) 01/18/2025 1:51 PM CDT Height 165.1 cm (5' 5) 01/18/2025 1:51 PM CDT Body Mass Index 46.59 01/18/2025 1:51 PM CDT Plan of Treatment Upcoming Encounters Date Type Department Care Team (Latest Contact Info) Description 01/27/2025 7:30 AM CDT Hospital Encounter [facility] Operating Room [address] [place] [address] [place] [address] [facility] [place] [place] [id number] 01/27/2025 7:30 AM CDT - 01/27/2025 9:00 AM CDT Surgery [facility] Operating Room [address] [place] [address] [place] [address] [facility] [address] [place] [address] DEBRIDEMENT LEFT KNEE WOUND WITH WOUND VAC PLACEMENT Scheduled Procedures Name Priority Associated Diagnoses Date/Ti me DEBRIDEMENT WOUND Open wound of left knee, initial encounter Other complications of procedures, not elsewhere classified, initial encounter 01/27/2025 7:30 AM CDT Health Maintenance Due Date Last Done Comments Osteoporosis Screening-Bone Density Scan 1950 Hepatitis B Screening 02/28/1966 Pneumococcal vaccine 65+ (1 of 2 - PCV) 02/28/1967 Zoster Vaccine (1 of 2) 02/28/1998 Well Visit 65+ 02/28/2013 Covid-19 Vaccine (4 - 2023-2 5 season) 2024 06/05/2021, 08/10/2020, 07/17/2020 Influenza Vaccine (#1) 2025 Depression Screening 11/04/2025 11/04/2024, 11/05/19 25 Fall Risk Assessment 12/08/2025 12/08/2024 DTaP/Tdap/Td Vaccine (2 - Td or Tdap) 05/02/2032 05/02/2022 Breast Cancer Screening-Mammogram Discontinued 03/04/2022, 11/07/2020, 07/30/2019, Additional history exists Hepatitis C Screening Completed 07/18/2022, 017 Medical Devices Implanted Type Area Dirt Bike Racer Device Identifier Shelf Expiration Date Model / Serial / Lot Lei Orthopaedics Simplex P Radiopaque Full Dose Cement Bone Sterile 6191-1-010 - [id number] Implanted:Qty: 1 on 10/07/2024 by Adelfo Marsh MD at [facility] Bone Cement Right: Knee [employer] 02/06/2027 6191-1-00 1 / / [id number] Pacemaker Pacemaker Chest Screw Screw Right: Ankle Synthes 3.5mm 5mm 1.35mm 50mm Cannulated Low Profile Hemispherical Head 205.250 - [id number] Implanted:Qty: 1 on 04/08/2023 by Zaki Balderas DO at [facility] Screw Left: Foot Synthes I 205.250 / / Synthes 3.5mm 5mm 1.35mm 42mm Cannulated Low Profile Hemispherical Head 205.242 - [id number] Implanted:Qty: 1 on 04/08/2023 by Zaki Balderas DO at [facility] Screw Left: Foot Synthes I 205.242 / / Synthes 3.5mm 5mm 1.35mm 34mm Cannulated Low Profile Hemispherical Head 205.234 - [id number] Implanted:Qty: 1 on 04/08/2023 by Zaki Balderas DO at [facility] Screw Synthes I 205.234 / / Vladimir Left: Leg Total Knee Left: Knee Cline [employer] Nephew/[employer]/O rtho Journey Ii 10mm Bicruciate Stabilized Right 5-6 Insert Articular [id number] - [id number] Implanted:Qty: 1 on 10/07/2024 by Adelfo Marsh MD at [facility] Right: Knee [employer] rtho [id number] 12/08/2032 [id number] / / [id number] Cline [employer] Nephew/[employer] rtho Component Patellar Kn Resurfacing Domed 3 Peg Journey 29mm Poly [id number] - [id number] Implanted:Qty: 1 on 10/07/2024 by Adelfo Marsh MD at [facility] Right: Knee [employer]hew/[employer] rtho [id number] 05/16/2034 [id number] / / [id number] Cline [employer] Nephew/[employer]/O rtho Journey Bicruciate Stabilize Knee Right 6 Baseplate Tibial [id number] - [id number] Implanted:Qty: 1 on 10/07/2024 by Adelfo Marsh MD at [facility] Right: Knee [employer] rtho [id number] 07/20/2034 [id number] / / [id number] Cline [employer] Nephew/[employer] rtho Journey Ii 70.5x65.7mm Bicruciate Stabilize Knee Right 6 [id number] - [id number] Implanted:Qty: 1 on 10/07/2024 by Adelfo Marsh MD at [facility] Right: Knee Cline [employer] Nephew/[employer]/O rtho [id number] 03/13/2034 [id number] / / [id number] Biocomposites Stimulan Rapid Cure Kit Paste Community Outreach Manager 10cc 20cc Bone Void 620-010 - Sn/A - [id number] Implanted:Qty: 1 on 12/02/2024 by Adelfo Marsh MD at [facility] Right: Knee [employer]ites 07/09/2027 620-010 / N/A / [id number] Procedures Procedure Name Priority Date/Time Associated Diagnosis Comments AEROBIC AND ANAEROBIC CULTURE AND GRAM STAIN Routine 01/12/2025 11:08 AM CDT S/P total knee arthroplasty, right DIFFERENTIAL AUTO Routine 01/06/2025 12: 05 PM CDT ERYTHROCYTE SEDIMENTATION RATE Routine 01/06/2025 12:05 PM CDT CBC WITH AUTO DIFFERENTIAL Routine 01/06/2025 12:05 PM CDT EGFR Routine 01/05/2025 1:15 PM CDT COMPREHENSIVE METABOIC PANEL, SERUM Routine 01/05/2025 1:15 PM CDT EGFR Routine 12/24/2024 9:10 AM CDT DIFFERENTIAL AUTO Routine 12/24/2024 9:1 0 AM CDT MAGNESIUM Routine 12/24/2024 9:10 AM CDT CBC WITH AUTO DIFFERENTIAL Routine 12/24/2024 9:10 AM CDT COMPREHENSIVE METABOLIC PANEL Routine 12/24/2024 9:10 AM CDT LIPID PANEL Routine 12/24/2024 9:10 AM CDT EGFR Routine 12/08/2024 3:22 AM CDT DIFFERENTIAL AUTO Routine 12/08/2024 3:2 2 AM CDT CBC WITH AUTO DIFFERENTIAL Routine 12/08/2024 3:22 AM CDT BASIC METABOLIC PANEL Routine 12/08/2024 3:22 AM CDT EGFR Routine 12/07/2024 4:11 AM CDT CBC WITHOUT DIFFERENTIAL Routine 12/07/2024 4:11 AM CDT BASIC METABOLIC PANEL Routine 12/07/2024 4:11 AM CDT XR CHEST 1 VIEW ED Urgent/IP Urgent 12/06/2024 3:42 PM CDT EGFR Routine 12/06/2024 5:54 AM CDT MAGNESIUM Timed 12/06/2024 5:54 AM CDT CBC WITHOUT DIFFERENTIAL Routine 12/06/2024 5:54 AM CDT BASIC METABOLIC PANEL Routine 12/06/2024 5:54 AM CDT EGFR Routine 12/05/2024 2:41 AM CDT CBC WITHOUT DIFFERENTIAL Routine 12/05/2024 2:41 AM CDT BASIC METABOLIC PANEL Routine 12/05/2024 2:41 AM CDT EGFR Routine 12/04/2024 4:47 AM CDT CBC WITHOUT DIFFERENTIAL Routine 12/04/2024 4:47 AM CDT BASIC METABOLIC PANEL Routine 12/04/2024 4:47 AM CDT ECG 12-LEAD Routine 12/03/2024 11:34 AM CDT MAGNESIUM Routine 12/03/2024 4:22 AM CDT EGFR Routine 12/03/2024 4:22 AM CDT CBC WITHOUT DIFFERENTIAL Routine 12/03/2024 4:22 AM CDT BASIC METABOLIC PANEL Routine 12/03/2024 4:22 AM CDT EGFR STAT 12/02/2024 6:20 PM CDT MAGNESIUM STAT 12/02/2024 6:20 PM CDT BASIC METABOLIC PANEL STAT 12/02/2024 6:20 PM CDT AEROBIC AND ANAEROBIC CULTURE AND GRAM STAIN Routine 12/02/2024 3:38 PM CDT TISSUE AEROBIC AND ANAEROBIC CULTURE AND GRAM STAIN Routine 12/02/2024 3:36 PM CDT CA AN PROCEDURE PLACEHOLDER Routine 12/02/2024 3:18 PM CDT CA AN ELECTIVE ENDOTRACHEAL AIRWAY Routine 12/02/2024 3:18 PM CDT INCISION AND DRAINAGE - KNEE 12/02/2024 3:04 PM CDT Wound infection after surgery Case Notes I&D R knee w/ abx bead placement AEROBIC AND ANAEROBIC CULTURE AND GRAM STAIN Routine 11/23/2024 11:22 AM CDT EGFR Routine 11/20/2024 3:48 AM CDT BASIC METABOLIC PANEL Routine 11/20/2024 3:48 AM CDT DIFFERENTIAL AUTO Routine 11/20/2024 3:4 8 AM CDT CBC WITH AUTO DIFFERENTIAL Routine 11/20/2024 3:48 AM CDT CRP (ACUTE PHASE) Routine 11/19/2024 3:2 7 AM CDT ERYTHROCYTE SEDIMENTATION RATE Routine 11/19/2024 3:27 AM CDT DIFFERENTIAL AUTO Routine 11/19/2024 3:2 7 AM CDT CBC WITH AUTO DIFFERENTIAL Routine 11/19/2024 3:27 AM CDT EGFR Routine 11/16/2024 3:48 AM CDT COMPREHENSIVE METABOLIC PANEL Routine 11/16/2024 3:48 AM CDT DIFFERENTIAL AUTO Routine 11/16/2024 3:4 8 AM CDT CBC WITH AUTO DIFFERENTIAL Routine 11/16/2024 3:48 AM CDT EGFR Routine 11/09/2024 4:19 AM CDT COMPREHENSIVE METABOLIC PANEL Routine 11/09/2024 4:19 AM CDT DIFFERENTIAL AUTO Routine 11/09/2024 4:1 9 AM CDT CBC WITH AUTO DIFFERENTIAL Routine 11/09/2024 4:19 AM CDT EGFR Routine 11/08/2024 3:51 AM CDT DIFFERENTIAL AUTO Routine 11/08/2024 3:5 1 AM CDT CBC WITH AUTO DIFFERENTIAL Routine 11/08/2024 3:51 AM CDT BASIC METABOLIC PANEL Routine 11/08/2024 3:51 AM CDT EGFR Routine 11/07/2024 6:36 AM CDT DIFFERENTIAL AUTO Routine 11/07/2024 6:3 6 AM CDT CBC WITH AUTO DIFFERENTIAL Routine 11/07/2024 6:36 AM CDT BASIC METABOLIC PANEL Routine 11/07/2024 6:36 AM CDT EGFR Routine 11/06/2024 5:04 AM CDT DIFFERENTIAL AUTO Routine 11/06/2024 5:0 4 AM CDT CBC WITH AUTO DIFFERENTIAL Routine 11/06/2024 5:04 AM CDT BASIC METABOLIC PANEL Routine 11/06/2024 5:04 AM CDT HEMOGLOBIN AND HEMATOCRIT Timed 11/05/2024 10:49 AM CDT BLOOD CULTURE STAT 11/05/2024 8:05 AM CDT CREATINE KINASE (CK), TOTAL Routine 11/05/2024 8:04 AM CDT BLOOD CULTURE STAT 11/05/2024 8:04 AM CDT EGFR Routine 11/05/2024 4:25 AM CDT DIFFERENTIAL AUTO Routine 11/05/2024 4:2 5 AM CDT CBC WITH AUTO DIFFERENTIAL Routine 11/05/2024 4:25 AM CDT BASIC METABOLIC PANEL Routine 11/05/2024 4:25 AM CDT XR KNEE RIGHT 1 OR 2 VIEWS IP Routine 11/04/2024 9:47 PM CDT AEROBIC AND ANAEROBIC CULTURE AND GRAM STAIN Routine 11/04/2024 9:07 PM CDT CA AN PROCEDURE PLACEHOLDER Routine 11/04/2024 8:53 PM CDT CA AN ELECTIVE ENDOTRACHEAL AIRWAY Routine 11/04/2024 8:53 PM CDT INCISION AND DRAINAGE - ABSCESS 11/04/2024 8:35 PM CDT EGFR STAT 11/04/2024 5:02 PM CDT DIFFERENTIAL AUTO STAT 11/04/2024 5:0 2 PM CDT SEPSIS LACTATE WITH REFLEX STAT 11/04/2024 5:02 PM CDT COMPREHENSIVE METABOLIC PANEL STAT 11/04/2024 5:02 PM CDT CBC WITH AUTO DIFFERENTIAL STAT 11/04/2024 5:02 PM CDT EGFR Routine 10/29/2024 4:59 AM CDT CREATINE [...] GRAM STAIN Routine 10/21/2024 2:16 PM CDT CA AN PROCEDURE PLACEHOLDER Routine 10/21/2024 2:13 PM CDT CA AN ELECTIVE ENDOTRACHEAL AIRWAY Routine 10/21/2024 2:13 PM CDT INCISION AND DRAINAGE - KNEE 10/21/2024 1:50 PM CDT Wound dehiscence Case Notes I&D R knee w/ wound closure DIFFERENTIAL AUTO Routine 10/21/2024 6:3 7 AM CDT CBC WITH AUTO DIFFERENTIAL Routine 10/21/2024 6:37 AM CDT EGFR Routine 10/21/2024 6:31 AM CDT COMPREHENSIVE METABOLIC PANEL Routine 10/21/2024 6:31 AM CDT HEPATITIS PANEL, ACUTE Routine 07/18/2022 6:04 AM BILLING ASSISTANT SCREENING MAMMOGRAM BILATERAL W PARISH Routine 04/29/2018 10:09 AM BILLING ASSISTANT from Last 3 Months or Most Recently Relevant to Health Maintenance Results * (ABNORMAL) Aerobic and anaerobic culture and gram stain Wound Knee, right (01/12/2025 11:08 AM CDT) Direct Specimen Exam Stain: Abundant polymorphonuclear leukocytes seen. No organisms seen. Comment:Testing performed by : [facility], [address] [place]., [address] Report Final Report: Few Enterococcus faecalis (.) MARJORIE SUTHERLAND Comment:Testing performed by : [facility], [address] [place]., [address] Organism ENTEROCOCCUS FAECALIS MARJORIE Wound (Knee, right) 01/12/2025 11:08 AM CDT 01/12/2025 3:40 PM CDT Narrative MARJORIE SUTHERLAND - 01/21/2025 8:07 AM CDT Specimen received on an ESwab. Testing performed by [facility] Microbiology Laboratory ([phone]) Specimens submitted from normally sterile body sites [...] Enterococcus faecalis Doxycycline (KEERTHI) INTERPRETATIO N Resistant us Adelfo Marsh MD LAB MICROBIOLOGY - GEN ERAL ORDERABLES Final Result MARJORIE [address] [facility] Department [place] [address] * Differential, auto (01/06/2025 12:05 PM CDT) Neutrophil abs 5.49 1.50 - 6.50 K/cumm Imm gran abs 0.04 0.00 - 0.10 K/cumm [facility] Lymphocyte abs 1.19 0.80 - 3.30 K/cumm [facility] Monocyte abs 0.59 0.20 - 0.80 K/cumm [facility] Eosinophil abs 0.44 0.00 - 0.50 K/cumm [facility] Basophil abs 0.06 0.00 - 0.10 K/cumm [facility] Neutrophil pct 70.3 % [facility] Comment: Interpretive Data Percent cell count reference ranges are not reported, since discordance with absolute values may lead to misinterpretation of CBC data. Current Interpretive Data was last revised on 2017. Imm gran pct 0.5 % [facility] Comment: Interpretive Data Percent cell count reference ranges are not reported, since discordance with absolute values may lead to misinterpretation of CBC data. Current Interpretive Data was last revised on 2017. Lymphocyte pct 15.2 % [facility] Comment: Interpretive Data Percent cell count reference ranges are not reported, since discordance with absolute values may lead to misinterpretation of CBC data. Current Interpretive Data was last revised on 2017. Monocyte pct 7.6 % [facility] Comment: Interpretive Data Percent cell count reference ranges are not reported, since discordance with absolute values may lead to misinterpretation of CBC data. Current Interpretive Data was last revised on 2017. Eosinophil pct 5.6 % [facility] Comment: Interpretive Data Percent cell count reference ranges are not reported, since discordance with absolute values may lead to misinterpretation of CBC data. Current Interpretive Data was last revised on 2017. Basophil pct 0.8 % [facility] Comment: Interpretive Data Percent cell count reference ranges are not reported, since discordance with absolute values may lead to misinterpretation of CBC data. Current Interpretive Data was last revised on 2017. Blood 01/06/2025 12:0 5 PM CDT 01/06/2025 12:49 PM CDT Vitaliy Alcazar MD LAB BLOOD ORDERABLES Final R esult Performing Organization Address City/[facility]/ZIP Co de Phone Number [address] [employer] [place] [address] * (ABNORMAL) CBC with auto differential (01/06/2025 12:05 PM CDT) WBC 7.81 3.80 - 9.90 K/cumm Hgb 10.4(L) 11.9 - 15.5 g/dL [facility] Hct 33.9(L) 35.6 - 45.5 % [facility] Plt 255 150 - 400 K/cumm [facility] MPV 9.4 9.1 - 12.3 fL [facility] RBC 3.71(L) 3.90 - 5.20 M/cumm [facility] MCV 91.4 81.3 - 96.4 fL [facility] MCH 28.0 27.1 - 33.3 pg [facility] MCHC 30.7(L) 32.3 - 35.7 g/dL [facility] RDW CV 13.7 11.1 - 14.9 % [facility] RDW SD 45.7 35.7 - 48.1 fL [facility] NRBC abs 0.00 0.00 - 0.01 K/cumm [facility] Blood 01/06/2025 12:0 5 PM CDT 01/06/2025 12:49 PM CDT us Vitaliy Alcazar MD LAB BLOOD ORDERABLES Final R esult [address] [employer] [place] [address] * (ABNORMAL) Erythrocyte sedimentation rate (01/06/2025 12:05 PM CDT) Pathologist [facility] Erythrocyte sedimentation rate 83(H) 1 - 30 mm/hr Blood 01/06/2025 12:0 5 PM CDT 01/06/2025 12:49 PM CDT Vitaliy Alcazar MD LAB BLOOD ORDERABLES Final R esult Performing Organization Address [facility] de Phone Number MARJORIE [address] [place] [address] * eGFR (01/05/2025 1:15 PM CDT) eGFR >90 >=60 mL/min/1. 73 m2 [...] interpretive data was last reviewed 2021. Blood 01/05/2025 1:15 PM CDT 01/05/2025 2:02 PM CDT Vitaliy Alcazar MD LAB BLOOD ORDERABLES Final R esult Performing Organization Address [facility] Co de Phone Number MARJORIE [address] [employer] [place] [address] * (ABNORMAL) Comprehensive metabolic panel, serum (01/05/2025 1:15 PM CDT) Pathologist [facility] Sodium 137 135 - 145 mmol/L Potassium, sr 4.2 3.6 - 5.2 mmol/L [facility] Chloride 100 97 - 110 mmol/L [facility] CO2 25 22 - 32 mmol/L [facility] Anion gap 12 2 - 15 mmol/L [facility] BUN 16 6 - 25 mg/dL [facility] Creatinine 0.67 0.60 - 1.10 mg/dL [facility] Glucose 99 70 - 199 mg/dL [facility] Comment: Interpretive Data Fasting glucose >/= 126 [...] interpretive data was last revised 2022. Calcium 9.2 8.5 - 10.3 mg/dL [facility] Bilirubin, total 0.2 0.1 - 1.2 mg/dL [facility] Protein, sr 6.1(L) 6.2 - 8.2 g/dL [facility] Albumin 3.5 3.5 - 5.0 g/dL [facility] Alk phos 130 40 - 130 Units/L [facility] ALT 11 7 - 45 Units/L [facility] AST 19 10 - 45 Units/L [facility] Blood 01/05/2025 1:15 PM CDT 01/05/2025 2:02 PM CDT Narrative [facility] - 01/05/2025 2:36 PM CDT us Vitaliy Alcazar MD LAB BLOOD ORDERABLES Final R esult MARJORIE [address] [facility] Department [place] [address] * eGFR (12/24/2024 9:10 AM CDT) eGFR >90 >=60 mL/min/1. 73 [...] interpretive data was last reviewed 2021. Blood 12/24/2024 9:10 AM CDT 12/24/2024 10:28 AM CDT us Notinfile Unknown LAB BLOOD ORDERABLES Final Res ult [place] [id number] [facility] Department [place] [address] * (ABNORMAL) Differential, auto (12/24/2024 9:10 AM CDT) Pathologist [facility] Neutrophil abs 5.73 1.50 - 6.50 K/cumm Imm gran abs 0.06 0.00 - 0.10 K/cumm [facility] Lymphocyte abs 1.08 0.80 - 3.30 K/cumm [facility] Monocyte abs 0.93(H) 0.20 - 0.80 K/cumm [facility] Eosinophil abs 0.49 0.00 - 0.50 K/cumm [facility] Basophil abs 0.08 0.00 - 0.10 K/cumm [facility] Neutrophil pct 68.4 % [facility] Comment: Interpretive Data Percent cell count reference ranges are not reported, since discordance with absolute values may lead to misinterpretation of CBC data. Current Interpretive Data was last revised on 2017. Imm gran pct 0.7 % [facility] Comment: Interpretive Data Percent cell count reference ranges are not reported, since discordance with absolute values may lead to misinterpretation of CBC data. Current Interpretive Data was last revised on 2017. Lymphocyte pct 12.9 % [facility] Comment: Interpretive Data Percent cell count reference ranges are not reported, since discordance with absolute values may lead to misinterpretation of CBC data. Current Interpretive Data was last revised on 2017. Monocyte pct 11.1 % [facility] Comment: Interpretive Data Percent cell count reference ranges are not reported, since discordance with absolute values may lead to misinterpretation of CBC data. Current Interpretive Data was last revised on 2017. Eosinophil pct 5.9 % [facility] Comment: Interpretive Data Percent cell count reference ranges are not reported, since discordance with absolute values may lead to misinterpretation of CBC data. Current Interpretive Data was last revised on 2017. Basophil pct 1.0 % [facility] Comment: Interpretive Data Percent cell count reference ranges are not reported, since discordance with absolute values may lead to misinterpretation of CBC data. Current Interpretive Data was last revised on 2017. Blood 12/24/2024 9:10 AM CDT 12/24/2024 10:26 AM CDT us Notinfile Unknown LAB BLOOD ORDERABLES Final Res ult [facility] [address] [facility] Department of Laboratories [place], [place] [id number] * (ABNORMAL) CBC with auto differential (12/24/2024 9:10 AM CDT) WBC 8.37 3.80 - 9.90 K/cumm Hgb 10.2(L) 11.9 - 15.5 g/dL [facility] Hct 33.1(L) 35.6 - 45.5 % [facility] Plt 213 150 - 400 K/cumm [facility] MPV 9.6 9.1 - 12.3 fL [facility] RBC 3.64(L) 3.90 - 5.20 M/cumm [facility] MCV 90.9 81.3 - 96.4 fL [facility] MCH 28.0 27.1 - 33.3 pg [facility] MCHC 30.8(L) 32.3 - 35.7 g/dL [facility] RDW CV 13.8 11.1 - 14.9 % [facility] RDW SD 45.5 35.7 - 48.1 fL [facility] NRBC abs 0.00 0.00 - 0.01 K/cumm [facility] Blood 12/24/2024 9:10 AM CDT 12/24/2024 10:26 AM CDT us Notinfile Unknown LAB BLOOD ORDERABLES Final Res ult Performing Organization Address City/[facility]/ZIP Co de Phone Number [address] [employer] [place] [address] * Magnesium (12/24/2024 9:10 AM CDT) Magnesium 2.1 1.4 - 2.5 mg/dL Blood 12/24/2024 9:10 AM CDT 12/24/2024 10:25 AM CDT us Notinfile Unknown LAB BLOOD ORDERABLES Final Res ult Performing Organization Address [facility] Co de Phone Number [address] [address] * Lipid panel (12/24/2024 9:10 AM CDT) Cholesterol 123 30 - 199 mg/dL Comment: Interpretive Data Ages < or = 19 years Acceptable: <170 mg/dL Borderline high: 170-199 mg/dL High: >or= 200 mg/dL Ages > or = 20 years Desirable: <200 mg/dL Borderline high: 200-239 mg/dL High: >or= 240 mg/dL Literature References: 1. Expert Panel on Integrated Guidelines for Cardiovascular Health and Risk Reduction in Children and Adolescents. Pediatrics 2011;128:S213 2. NCEP Expert Panel. Circulation 2004;110:227 Current Interpretive Data was last revised on 2018. Triglycerides 124 <=149 mg/dL [facility] Comment: Interpretive Data Ages < or = 9 years Acceptable: <75 mg/dL Borderline high: 75-99 mg/dL High: >or= 100 mg/dL Ages 10 to 20 years Acceptable: <90 mg/dL Borderline high: 90-129 mg/dL High: >or= 130 mg/dL Ages > or = 20 years Desirable: <150 mg/dL Borderline high: 150-199 mg/dL High: 200-499 mg/dL Very high: >or= 499 mg/dL Literature References: 1. Expert Panel on Integrated Guidelines for Cardiovascular Health and Risk Reduction in Children and Adolescents. Pediatrics 2011;128:S213 2. NCEP Expert Panel. Circulation 2004;110:227 Current Interpretive Data was last revised on 2018. HDL 45 >=40 mg/dL MARJORIE SUTHERLAND Comment: Interpretive Data Ages < or = 19 years Acceptable: >45 mg/dL Borderline low: 40-45 mg/dL Low: <40 mg/dL Ages > or = 20 years Desirable: >or= 60 mg/dL Low: <40 mg/dL Literature References: 1. Expert Panel on Integrated Guidelines for Cardiovascular Health and Risk Reduction in Children and Adolescents. Pediatrics 2011;128:S213 2. NCEP Expert Panel. Circulation 2004;110:227 Current Interpretive Data was last revised on 2018. LDL, calculated 56 <=129 mg/dL MARJORIE SUTHERLAND Comment: Interpretive Data Ages < or = 19 years Acceptable: <110 mg/dL Borderline high: 110-129 mg/dL High: >or= 130 mg/dL Ages > or = 20 years Optimal: <100 mg/dL Near optimal: 100-129 mg/dL Borderline high: 130-159 mg/dL High: >160 mg/dL Calculated using the Joby LDL-C estimating equation. This equation was implemented on 2024. Prior to this date LDL-C was estimated using the Friedewald equation. Literature References: 1. Expert Panel on Integrated Guidelines for Cardiovascular Health and Risk Reduction in Children and Adolescents. Pediatrics 2011;128:S213 2. NCEP Expert Panel. Circulation 2004;110:227 3. Joby Knight al. YUNG Cardiol. 2020 October 07;5(5):540-548. doi: [email or web address] Current Interpretive Data was last revised on 2024. Non-HDL Cholesterol 78 mg/dL [facility] Comment: Interpretive Data Ages < or = 19 years Acceptable: <120 mg/dL Borderline high: 120-144 mg/dL High: >145 mg/dL Ages > or = 20 years When triglycerides are >200 mg/dL, Non-HDL cholesterol is a secondary target of therapy with treatment goals that are 30 mg/dL greater than the LDL cholesterol target. Literature References: 1. Expert Panel on Integrated Guidelines for Cardiovascular Health and Risk Reduction in Children and Adolescents. Pediatrics 2011;128:S213 2. NCEP Expert Panel. Circulation 2004;110:227 Current Interpretive Data was last revised on 2018. Chol/HDL ratio 3 [facility] Blood 12/24/2024 9:10 AM CDT 12/24/2024 10:25 AM CDT us Notinfile Unknown LAB BLOOD ORDERABLES Final Res ult [facility] [address] [facility] Department [place] [address] * (ABNORMAL) Comprehensive metabolic panel (12/24/2024 9:10 AM CDT) Sodium 137 135 - 145 mmol/L Potassium, pl 4.0 3.3 - 4.9 mmol/L [facility] Chloride 102 97 - 110 mmol/L [facility] CO2 24 22 - 32 mmol/L [facility] Anion gap 11 2 - 15 mmol/L [facility] BUN 18 6 - 25 mg/dL [facility] Creatinine 0.65 0.60 - 1.10 mg/dL [facility] Glucose 107 70 - 199 mg/dL [facility] Comment: Interpretive Data Fasting glucose >/= 126 [...] interpretive data was last revised 2022. Calcium 9.1 8.5 - 10.3 mg/dL [facility] Bilirubin, total 0.2 0.1 - 1.2 mg/dL [facility] Protein, pl 6.7 6.5 - 8.5 g/dL [facility] Albumin 3.8 3.5 - 5.0 g/dL [facility] Alk phos 139(H) 40 - 130 Units/L [facility] ALT 11 7 - 45 Units/L [facility] AST 22 10 - 45 Units/L [facility] Blood 12/24/2024 9:10 AM CDT 12/24/2024 10:25 AM CDT us Notinfile Unknown LAB BLOOD ORDERABLES Final Res ult MARJORIE [facility] Department [place] [address] * eGFR (12/08/2024 3:22 AM CDT) eGFR 90 >=60 mL/min/1. 73 [...] interpretive data was last reviewed 2021. Blood 12/08/2024 3:22 AM CDT 12/08/2024 3:47 AM CDT Betty JUAREZ LAB BLOOD ORDERABLES Quynh ervin Result [facility] [address] [facility] Department [place] [address] * (ABNORMAL) Differential, auto (12/08/2024 3:22 AM CDT) Neutrophil abs 3.99 1.50 - 6.50 K/cumm Imm gran abs 0.05 0.00 - 0.10 K/cumm [facility] Lymphocyte abs 1.39 0.80 - 3.30 K/cumm [facility] Monocyte abs 0.93(H) 0.20 - 0.80 K/cumm [facility] Eosinophil abs 0.41 0.00 - 0.50 K/cumm [facility] Basophil abs 0.06 0.00 - 0.10 K/cumm [facility] Neutrophil pct 58.4 % [facility] Comment: Interpretive Data Percent cell count reference ranges are not reported, since discordance with absolute values may lead to misinterpretation of CBC data. Current Interpretive Data was last revised on 2017. Imm gran pct 0.7 % [facility] Comment: Interpretive Data Percent cell count reference ranges are not reported, since discordance with absolute values may lead to misinterpretation of CBC data. Current Interpretive Data was last revised on 2017. Lymphocyte pct 20.4 % [facility] Comment: Interpretive Data Percent cell count reference ranges are not reported, since discordance with absolute values may lead to misinterpretation of CBC data. Current Interpretive Data was last revised on 2017. Monocyte pct 13.6 % [facility] Comment: Interpretive Data Percent cell count reference ranges are not reported, since discordance with absolute values may lead to misinterpretation of CBC data. Current Interpretive Data was last revised on 2017. Eosinophil pct 6.0 % [facility] Comment: Interpretive Data Percent cell count reference ranges are not reported, since discordance with absolute values may lead to misinterpretation of CBC data. Current Interpretive Data was last revised on 2017. Basophil pct 0.9 % [facility] Comment: Interpretive Data Percent cell count reference ranges are not reported, since discordance with absolute values may lead to misinterpretation of CBC data. Current Interpretive Data was last revised on 2017. Blood 12/08/2024 3:22 AM CDT 12/08/2024 3:47 AM CDT Vitaliy Alcazar MD LAB BLOOD ORDERABLES Final R esult Performing Organization Address City/[facility] Co de Phone Number [address] [employer] [place] [address] * (ABNORMAL) CBC with auto differential (12/08/2024 3:22 AM CDT) WBC 6.83 3.80 - 9.90 K/cumm Hgb 9.5(L) 11.9 - 15.5 g/dL [facility] Hct 31.4(L) 35.6 - 45.5 % [facility] Plt 245 150 - 400 K/cumm [facility] MPV 9.4 9.1 - 12.3 fL [facility] RBC 3.32(L) 3.90 - 5.20 M/cumm [facility] MCV 94.6 81.3 - 96.4 fL [facility] MCH 28.6 27.1 - 33.3 pg [facility] MCHC 30.3(L) 32.3 - 35.7 g/dL [facility] RDW CV 13.2 11.1 - 14.9 % [facility] RDW SD 46.2 35.7 - 48.1 fL [facility] NRBC abs 0.00 0.00 - 0.01 K/cumm [facility] Blood 12/08/2024 3:22 AM CDT 12/08/2024 3:47 AM CDT us Vitaliy Alcazar MD LAB BLOOD ORDERABLES Final R esult Performing Organization Address City/[facility]/ZIP Co de Phone Number [facility] [address] [employer] [place] [address] * Basic metabolic panel (12/08/2024 3:22 AM CDT) Pathologist [facility] Sodium 135 135 - 145 mmol/L Potassium, pl 3.9 3.3 - 4.9 mmol/L [facility] Chloride 100 97 - 110 mmol/L [facility] CO2 26 22 - 32 mmol/L [facility] Anion gap 9 2 - 15 mmol/L [facility] BUN 12 6 - 25 mg/dL [facility] Creatinine 0.69 0.60 - 1.10 mg/dL [facility] Glucose 100 70 - 199 mg/dL [facility] Comment: Interpretive Data Fasting glucose >/= 126 [...] 2022. Calcium 8.7 8.5 - 10.3 mg/dL [facility] Blood 12/08/2024 3:22 AM CDT 12/08/2024 3:47 AM CDT Betty JUAREZ LAB BLOOD ORDERABLES Quynh ervin Result [facility] [address] [facility] Department [place] [address] * eGFR (12/07/2024 4:11 AM CDT) eGFR 90 >=60 mL/min/1. 73 [...] interpretive data was last reviewed 2021. Blood 12/07/2024 4:11 AM CDT 12/07/2024 4:46 AM CDT Betty JUAREZ LAB BLOOD ORDERABLES Quynh l Result Performing Organization Address [facility] Co de Phone Number MARJORIE [address] [employer] [place] [address] * (ABNORMAL) CBC without differential (12/07/2024 4:11 AM CDT) WBC 7.41 3.80 - 9.90 K/cumm Hgb 9.0(L) 11.9 - 15.5 g/dL [facility] Hct 29.1(L) 35.6 - 45.5 % [facility] Plt 246 150 - 400 K/cumm [facility] MPV 9.4 9.1 - 12.3 fL [facility] RBC 3.08(L) 3.90 - 5.20 M/cumm [facility] MCV 94.5 81.3 - 96.4 fL [facility] MCH 29.2 27.1 - 33.3 pg [facility] MCHC 30.9(L) 32.3 - 35.7 g/dL [facility] RDW CV 13.2 11.1 - 14.9 % [facility] RDW SD 45.9 35.7 - 48.1 fL [facility] NRBC abs 0.00 0.00 - 0.01 K/cumm [facility] Blood 12/07/2024 4:11 AM CDT 12/07/2024 4:47 AM CDT Betty JUAREZ LAB BLOOD ORDERABLES Quynh l Result Performing Organization Address City/[facility] Co de Phone Number MARJORIE [address] Department [place] [address] * Basic metabolic panel (12/07/2024 4:11 AM CDT) Sodium 135 135 - 145 mmol/L Potassium, pl 4.1 3.3 - 4.9 mmol/L [facility] Chloride 101 97 - 110 mmol/L [facility] CO2 25 22 - 32 mmol/L [facility] Anion gap 9 2 - 15 mmol/L [facility] BUN 11 6 - 25 mg/dL [facility] Creatinine 0.70 0.60 - 1.10 mg/dL [facility] Glucose 96 70 - 199 mg/dL [facility] Comment: Interpretive Data Fasting glucose >/= 126 [...] 2022. Calcium 8.7 8.5 - 10.3 mg/dL [facility] Blood 12/07/2024 4:11 AM CDT 12/07/2024 4:46 AM CDT us Betty JUAREZ LAB BLOOD ORDERABLES Quynh l Result [facility] [address] [facility] Department [place] [address] * X-ray chest 1 view (Portable) (12/06/2024 3:42 PM CDT) Anatomical Region Laterality Modality Body, Chest N/A Computed Radiogr aphy 12/06/2024 4:22 PM CDT Narrative 12/06/2024 4:24 PM CDT EXAM DESCRIPTION: XR CHEST 1 VIEW REASON FOR STUDY: picc tip confirmation, pt has a pacemaker and AFIB Picc line placment TECHNIQUE: Single frontal radiographic view(s) of the chest. COMPARISON: 10/28/2024 FINDINGS: There is cardiomegaly. Right-sided cardiac device is noted. Left upper extremity PICC is noted with its distal tip overlying the superior vena cava. The pulmonary vasculature and mediastinum are grossly stable. There is no definite evidence of a pneumothorax. There is no definite evidence of a pleural effusion. There are mild patchy left basilar airspace opacities. The osseous structures are acutely grossly stable. IMPRESSION: 1. Left upper extremity PICC is noted with its distal tip overlying the superior vena cava. No definite evidence of a pneumothorax. 2. Mild patchy left basilar airspace opacities, which is likely related to subsegmental atelectasis/scarring and less likely developing airspace disease. THIS IS AN ELECTRONICALLY VERIFIED FINAL REPORT 12/06/2024 4:24 PM - Electronically signed by Teo Carrizales D.O. PS T: Report ID: [id number] Reading Location: [id number] Procedure Note Teo Carrizales, DO - 12/06/2024 EXAM DESCRIPTION: XR CHEST 1 VIEW REASON FOR STUDY: picc tip confirmation, pt has a pacemaker and AFIB Picc line placment TECHNIQUE: Single frontal radiographic view(s) of the chest. COMPARISON: 10/28/2024 FINDINGS: There is cardiomegaly. Right-sided cardiac device is noted.Left upper extremity PICC is noted with its distal tip overlying the superiorvena cava. The pulmonary vasculature and mediastinum are grossly stable.There is no definite evidence of a pneumothorax. There is no definite evidence ofa pleural effusion. There are mild patchy left basilar airspaceopacities. The osseous structures are acutely grossly stable. IMPRESSION: 1. Left upper extremity PICC is noted with its distal tip overlying the superior vena cava. No definite evidence of a pneumothorax. 2. Mild patchy left basilar airspace opacities, which is likely relatedto subsegmental atelectasis/scarring and less likely developing airspacedisease. THIS IS AN ELECTRONICALLY VERIFIED FINAL REPORT 12/06/2024 4:24 PM - Electronically signed by Teo Carrizales D.O. PS T: Report ID: [id number] Reading Location: [id number] Vitaliy Alcazar MD IMG XR PROCEDURES Final Resu lt * eGFR (12/06/2024 5:54 AM CDT) eGFR 90 >=60 mL/min/1. 73 [...] interpretive data was last reviewed 2021. Blood 12/06/2024 5:54 AM CDT 12/06/2024 6:00 AM CDT Betty JUAREZ LAB BLOOD ORDERABLES Quynh l Result [facility] [address] [facility] Department [place] [address] * (ABNORMAL) CBC without differential (12/06/2024 5:54 AM CDT) WBC 8.15 3.80 - 9.90 K/cumm Hgb 9.7(L) 11.9 - 15.5 g/dL [facility] Hct 31.3(L) 35.6 - 45.5 % [facility] Plt 257 150 - 400 K/cumm [facility] MPV 9.0(L) 9.1 - 12.3 fL [facility] RBC 3.39(L) 3.90 - 5.20 M/cumm [facility] MCV 92.3 81.3 - 96.4 fL [facility] MCH 28.6 27.1 - 33.3 pg [facility] MCHC 31.0(L) 32.3 - 35.7 g/dL [facility] RDW CV 13.4 11.1 - 14.9 % [facility] RDW SD 45.1 35.7 - 48.1 fL [facility] NRBC abs 0.00 0.00 - 0.01 K/cumm [facility] Blood 12/06/2024 5:54 AM CDT 12/06/2024 6:00 AM CDT Betty JUAREZ LAB BLOOD ORDERABLES Quynh l Result Performing Organization Address [facility]/ZIP Co de Phone Number [address] [employer] [place] [address] * Magnesium (12/06/2024 5:54 AM CDT) [facility] Magnesium 2.1 1.4 - 2.5 mg/dL Blood 12/06/2024 5:54 AM CDT 12/06/2024 6:00 AM CDT Narrative [facility] - 12/06/2024 6:39 AM CDT Draw with daily AM labs. Adelfo Marsh MD LAB BLOOD ORDERABLES F inal Result Performing Organization Address City/[facility]/ZIP Co de Phone Number [address] [place] [address] * (ABNORMAL) Basic metabolic panel (12/06/2024 5:54 AM CDT) [facility] Sodium 134(L) 135 - 145 mmol/L Potassium, pl 4.4 3.3 - 4.9 mmol/L [facility] Chloride 99 97 - 110 mmol/L [facility] CO2 27 22 - 32 mmol/L [facility] Anion gap 8 2 - 15 mmol/L [facility] BUN 10 6 - 25 mg/dL [facility] Creatinine 0.69 0.60 - 1.10 mg/dL [facility] Glucose 109 70 - 199 mg/dL [facility] Comment: Interpretive Data Fasting glucose >/= 126 [...] 2022. Calcium 9.3 8.5 - 10.3 mg/dL [facility] Blood 12/06/2024 5:54 AM CDT 12/06/2024 6:00 AM CDT Betty JUAREZ LAB BLOOD ORDERABLES Quynh l Result [facility] [address] [facility] Department [place] [address] * eGFR (12/05/2024 2:41 AM CDT) eGFR 79 >=60 mL/min/1. 73 m2 Comment: Interpretive Data [...] interpretive data was last reviewed 2021. Blood 12/05/2024 2:41 AM CDT 12/05/2024 3:02 AM CDT Betty JUAREZ LAB BLOOD ORDERABLES Quynh l Result Performing Organization Address City/[facility] Co de Phone Number [address] [place] [address] * (ABNORMAL) CBC without differential (12/05/2024 2:41 AM CDT) Pathologist [facility] WBC 9.62 3.80 - 9.90 K/cumm Hgb 9.4(L) 11.9 - 15.5 g/dL [facility] Hct 30.4(L) 35.6 - 45.5 % [facility] Plt 230 150 - 400 K/cumm [facility] MPV 9.5 9.1 - 12.3 fL [facility] RBC 3.26(L) 3.90 - 5.20 M/cumm [facility] MCV 93.3 81.3 - 96.4 fL [facility] MCH 28.8 27.1 - 33.3 pg [facility] MCHC 30.9(L) 32.3 - 35.7 g/dL [facility] RDW CV 13.5 11.1 - 14.9 % [facility] RDW SD 46.3 35.7 - 48.1 fL [facility] NRBC abs 0.00 0.00 - 0.01 K/cumm [facility] Blood 12/05/2024 2:41 AM CDT 12/05/2024 3:02 AM CDT Betty JUAREZ LAB BLOOD ORDERABLES Quynh l Result Performing Organization Address [facility] Co de Phone Number [address] [employer] [place] [address] * (ABNORMAL) Basic metabolic panel (12/05/2024 2:41 AM CDT) Pathologist [facility] Sodium 134(L) 135 - 145 mmol/L Potassium, pl 4.6 3.3 - 4.9 mmol/L [facility] Chloride 101 97 - 110 mmol/L [facility] CO2 24 22 - 32 mmol/L [facility] Anion gap 9 2 - 15 mmol/L [facility] BUN 13 6 - 25 mg/dL [facility] Creatinine 0.78 0.60 - 1.10 mg/dL [facility] Glucose 108 70 - 199 mg/dL [facility] Comment: Interpretive Data Fasting glucose >/= 126 [...] 2022. Calcium 8.9 8.5 - 10.3 mg/dL [facility] Blood 12/05/2024 2:41 AM CDT 12/05/2024 3:02 AM CDT Betty JUAREZ LAB BLOOD ORDERABLES Quynh l Result [facility] [address] [facility] Department of Laboratories [place], [place] [id number] * eGFR (12/04/2024 4:47 AM CDT) Pathologist [facility] eGFR 68 >=60 mL/min/1. 73 m2 Comment: Interpretive Data [...] interpretive data was last reviewed 2021. Blood 12/04/2024 4:47 AM CDT 12/04/2024 5:21 AM CDT Betty JUAREZ LAB BLOOD ORDERABLES Quynh l Result Performing Organization Address [facility] Co ca Phone Number [facility] [address] [facility] Department [place] [address] * (ABNORMAL) CBC without differential (12/04/2024 4:47 AM CDT) WBC 6.83 3.80 - 9.90 K/cumm Hgb 9.0(L) 11.9 - 15.5 g/dL [facility] Hct 29.3(L) 35.6 - 45.5 % [facility] Plt 199 150 - 400 K/cumm [facility] MPV 9.5 9.1 - 12.3 fL [facility] RBC 3.06(L) 3.90 - 5.20 M/cumm [facility] MCV 95.8 81.3 - 96.4 fL [facility] MCH 29.4 27.1 - 33.3 pg [facility] MCHC 30.7(L) 32.3 - 35.7 g/dL [facility] RDW CV 13.5 11.1 - 14.9 % [facility] RDW SD 47.8 35.7 - 48.1 fL [facility] NRBC abs 0.00 0.00 - 0.01 K/cumm [facility] Blood 12/04/2024 4:47 AM CDT 12/04/2024 5:21 AM CDT Betty JUAREZ LAB BLOOD ORDERABLES Quynh l Result Performing Organization Address [facility] Co de Phone Number [facility] [address] [facility] [place] [address] * (ABNORMAL) Basic metabolic panel (12/04/2024 4:47 AM CDT) Pathologist [facility] Sodium 134(L) 135 - 145 mmol/L Potassium, pl 4.3 3.3 - 4.9 mmol/L [facility] Chloride 103 97 - 110 mmol/L [facility] CO2 24 22 - 32 mmol/L [facility] Anion gap 7 2 - 15 mmol/L [facility] BUN 12 6 - 25 mg/dL [facility] Creatinine 0.88 0.60 - 1.10 mg/dL [facility] Glucose 97 70 - 199 mg/dL [facility] Comment: Interpretive Data Fasting glucose >/= 126 [...] 2022. Calcium 8.7 8.5 - 10.3 mg/dL [facility] Blood 12/04/2024 4:47 AM CDT 12/04/2024 5:21 AM CDT us Betty JUAREZ LAB BLOOD ORDERABLES Quynh l Result Performing Organization Address [facility] Co de Phone Number [place] [phone] [facility] Department [place] [address] * ECG 12 lead (12/03/2024 11:34 AM CDT) [facility] Ventricular Rate EKG/Min 60 BPM [facility] Atrial Rate 60 BPM [facility] CA-Interval (MSEC) 246 ms [facility] QRS-Interval (MSEC) 80 ms [facility] QT-Interval (MSEC) 454 ms [facility] QTc 454 ms [facility] P [place] 25 degrees [facility] R [place] 50 degrees [facility] T [place] 40 degrees [facility] Diagnosis Atrial-paced rhythm with prolonged AV conduction Abnormal ECG When compared with ECG of 17-SEP-2024 16:21, Electronic atrial pacemaker has replaced Electronic ventricular pacemaker Confirmed by JUAN DANIEL RIVERA M.D. ([id number]) on 12/04/2024 3:01:56 AM [facility] 12/03/2024 11:3 4 AM CDT 12/04/2024 3:01 AM CDT us Adelfo Marsh MD ECG ORDERABLES Final Result Performing Organization Address City/[facility]/ZIP Co de Phone Number [facility] * eGFR (12/03/2024 4:22 AM CDT) eGFR 80 >=60 mL/min/1. 73 m2 Comment: Interpretive Data [...] interpretive data was last reviewed 2021. Blood 12/03/2024 4:22 AM CDT 12/03/2024 4:34 AM CDT us Betty JUAREZ LAB BLOOD ORDERABLES Quynh l Result MARJORIE [address] [place] [address] * (ABNORMAL) CBC without differential (12/03/2024 4:22 AM CDT) [facility] WBC 9.55 3.80 - 9.90 K/cumm Hgb 9.7(L) 11.9 - 15.5 g/dL [facility] Hct 31.5(L) 35.6 - 45.5 % [facility] Plt 242 150 - 400 K/cumm [facility] MPV 9.2 9.1 - 12.3 fL [facility] RBC 3.35(L) 3.90 - 5.20 M/cumm [facility] MCV 94.0 81.3 - 96.4 fL [facility] MCH 29.0 27.1 - 33.3 pg [facility] MCHC 30.8(L) 32.3 - 35.7 g/dL [facility] RDW CV 13.4 11.1 - 14.9 % [facility] RDW SD 45.8 35.7 - 48.1 fL [facility] NRBC abs 0.00 0.00 - 0.01 K/cumm [facility] Blood 12/03/2024 4:22 AM CDT 12/03/2024 4:34 AM CDT us Betty JUAREZ LAB BLOOD ORDERABLES Quynh l Result Performing Organization Address City/[facility]/ZIP Co de Phone Number [address] [address] * Magnesium (12/03/2024 4:22 AM CDT) [facility] Magnesium 2.0 1.4 - 2.5 mg/dL Blood 12/03/2024 4:22 AM CDT 12/03/2024 4:34 AM CDT Adelfo Marsh MD LAB BLOOD ORDERABLES F inal Result [address] [address] * (ABNORMAL) Basic metabolic panel (12/03/2024 4:22 AM CDT) Pathologist [facility] Sodium 133(L) 135 - 145 mmol/L Potassium, pl 4.1 3.3 - 4.9 mmol/L [facility] Chloride 100 97 - 110 mmol/L [facility] CO2 23 22 - 32 mmol/L [facility] Anion gap 10 2 - 15 mmol/L [facility] BUN 13 6 - 25 mg/dL [facility] Creatinine 0.77 0.60 - 1.10 mg/dL [facility] Glucose 102 70 - 199 mg/dL [facility] Comment: Interpretive Data Fasting glucose >/= 126 [...] 2022. Calcium 8.5 8.5 - 10.3 mg/dL [facility] Blood 12/03/2024 4:22 AM CDT 12/03/2024 4:34 AM CDT Betty JUAREZ LAB BLOOD ORDERABLES Quynh l Result [facility] [address] [facility] Department [place] [address] * eGFR (12/02/2024 6:20 PM CDT) [facility] eGFR 75 >=60 mL/min/1. 73 m2 Comment: Interpretive Data [...] interpretive data was last reviewed 2021. Blood 12/02/2024 6:20 PM CDT 12/02/2024 6:41 PM CDT Adelfo Marsh MD LAB BLOOD ORDERABLES F inal Result Performing Organization Address [facility]/ZIP Co de Phone Number [address] [address] * Magnesium (12/02/2024 6:20 PM CDT) [facility] Magnesium 2.2 1.4 - 2.5 mg/dL Blood 12/02/2024 6:20 PM CDT 12/02/2024 6:41 PM CDT Adelfo Marsh MD LAB BLOOD ORDERABLES F inal Result Performing Organization Address [facility] Co de Phone Number [address] [address] * (ABNORMAL) Basic metabolic panel (12/02/2024 6:20 PM CDT) [facility] Sodium 133(L) 135 - 145 mmol/L Potassium, pl 3.8 3.3 - 4.9 mmol/L [facility] Chloride 100 97 - 110 mmol/L [facility] CO2 23 22 - 32 mmol/L [facility] Anion gap 10 2 - 15 mmol/L [facility] BUN 14 6 - 25 mg/dL [facility] Creatinine 0.81 0.60 - 1.10 mg/dL [facility] Glucose 96 70 - 199 mg/dL [facility] Comment: Interpretive Data Fasting glucose >/= 126 [...] Calcium 8.8 8.5 - 10.3 mg/dL MARJORIE Blood 12/02/2024 6:20 PM CDT 12/02/2024 6:41 PM CDT us Adelfo Marsh MD LAB BLOOD ORDERABLES F inal Result MARJ[facility]IE [address] [facility] Department [place] [address] * (ABNORMAL) Aerobic and anaerobic culture and gram stain Wound Knee, right (12/02/2024 3:38 PM CDT) Direct Specimen Exam Stain: No polymorphonuclear leukocytes seen. No organisms seen. Comment:Testing performed by : [facility], [address] [place]., [address] Report Final Report: Rare Escherichia coli Rare Pseudomonas aeruginosa For susceptibility results, refer to accession number [id number] on the right knee tissue culture from 12/02/2024 (.) MARJORIE Comment:Testing performed by : [facility], [address] [facility], [place]., [address] Organism ESCHERICHIA COLI MARJORIE Organism PSEUDOMONAS AERUGINOSA MARJORIE Wound (Knee, right) 12/02/2024 3:38 PM CDT 12/02/2024 5:58 PM CDT Narrative MARJORIE SUTHERLAND - 12/08/2024 9:40 AM CDT Right Knee Fluid Testing performed by [facility] ([phone]) Specimens submitted from normally sterile body sites [...] interpretive data was last revised on 2019. Adelfo Marsh MD LAB MICROBIOLOGY - GEN ERAL ORDERABLES Final Result MARJ[facility]IE [address] [facility] Department [place] [address] * (ABNORMAL) Tissue aerobic and anaerobic culture and gram stain Tissue Knee, right (12/02/2024 3:36 PM CDT) Direct Specimen Exam Stain: No polymorphonuclear leukocytes seen. No organisms seen. Comment:Testing performed by : [facility], [address] [place]., [address] Report Final Report: Few Escherichia coli Few Pseudomonas aeruginosa Few Pseudomonas aeruginosa #2 (.) MARJORIE Comment:Testing performed by : [facility], [address] [place]., [address] Organism ESCHERICHIA COLI [facility] Organism PSEUDOMONAS AERUGINOSA [facility] Organism PSEUDOMONAS AERUGINOSA [facility] Tissue (Knee, right) 12/02/2024 3:36 PM CDT 12/02/2024 5:58 PM CDT Narrative MARJORIE - 12/08/2024 9:39 AM CDT Right Knee Testing performed by [facility] ([phone]) Specimens submitted from normally sterile body sites [...] revised on 2019. Organism Antibiotic Method Susceptibility Escherichia coli Ampicillin INTERPRETATION Intermediate Escherichia coli Cefazolin INTERPRETATION Intermediate Escherichia coli Gentamicin INTERPRETATION Susceptible Escherichia coli Ampicillin with Sulbactam INTERPRETAT ION Susceptible Escherichia coli Trimethoprim with Sulfamethoxazole INTERPRETATION Susceptible Escherichia coli Meropenem INTERPRETATION Susceptible Escherichia coli Cefepime INTERPRETATION Susceptible Escherichia coli Ciprofloxacin INTERPRETATION Resistant Escherichia coli Ceftazidime INTERPRETATION Susceptible Escherichia coli Ceftriaxone INTERPRETATION Susceptible Escherichia coli Piperacillin/Tazobactam INTERPRETATIO N Susceptible Pseudomonas aeruginosa Aztreonam INTERPRETATION Susceptible Pseudomonas aeruginosa Ceftazidime INTERPRETATION Susceptible Pseudomonas aeruginosa Ciprofloxacin INTERPRETATION Susceptible Pseudomonas aeruginosa Cefepime INTERPRETATION Susceptible Pseudomonas aeruginosa Imipenem INTERPRETATION Susceptible Pseudomonas aeruginosa Meropenem INTERPRETATION Susceptible Pseudomonas aeruginosa Piperacillin/Tazobactam INTERPR ETATION Susceptible Pseudomonas aeruginosa Tobramycin INTERPRETATION Susceptible Pseudomonas aeruginosa Aztreonam INTERPRETATION Susceptible Pseudomonas aeruginosa Ceftazidime INTERPRETATION Susceptible Pseudomonas aeruginosa Ciprofloxacin INTERPRETATION Susceptible Pseudomonas aeruginosa Cefepime INTERPRETATION Susceptible Pseudomonas aeruginosa Imipenem INTERPRETATION Susceptible Pseudomonas aeruginosa Meropenem INTERPRETATION Susceptible Pseudomonas aeruginosa Piperacillin/Tazobactam INTERPR ETATION Susceptible Pseudomonas aeruginosa Tobramycin INTERPRETATION Susceptible us Adelfo Marsh MD LAB MICROBIOLOGY - GEN ERAL ORDERABLES Final Result Performing Organization Address City/State/[facility] Co de Phone Number [facility] [address] [facility] Department [place] [address] * CA AN ELECTIVE ENDOTRACHEAL AIRWAY, CA AN PROCEDURE PLACEHOLDER (12/02/2024 3:18 PM CDT) Angelica Davila CRNA - 12/02/2024 3:18 PM CDT Angelica Almazan CRNA 12/02/2024 3:18 PM Airway Patient location: OR Urgency: elective Indications for airway management: anesthesia Difficult airway: no Staff: Placed by: IS CONSULTANT: Angelica Almazan CRNA Emergent airway documentation: Risks [...] Cuff inflated with: air ETT to lips: 21 cm Placement verified by: auscultation and CO2 detection Airway secured with: silk tape Number of attempts: 1 us Amelie Delgado MD ANESTHESIA ORDERABLES Final Re sult * (ABNORMAL) Aerobic and anaerobic culture and gram stain Wound Knee, right (11/23/2024 11:22 AM CDT) Direct Specimen Exam Stain: Few polymorphonuclear leukocytes seen. Rare Gram Negative Bacilli Comment:Testing performed by : [facility], [address] [place] [address]., [id number] Report Final Report: Moderate Pseudomonas aeruginosa Rare Escherichia coli (.) MARJORIE Comment:Testing performed by : [facility], [address] [place] [address]., [id number] Organism PSEUDOMONAS AERUGINOSA MARJORIE Organism ESCHERICHIA COLI MARJORIE Wound (Knee, right) 11/23/2024 11:22 AM CDT 11/23/2024 7:57 PM CDT Narrative MARJORIE - 11/30/2024 11:08 AM CDT Specimen received on an ESwab. Testing performed by [facility] ([phone]) Specimens submitted from normally sterile body sites [...] revised on 2019. Organism Antibiotic Method Susceptibility Pseudomonas aeruginosa Aztreonam INTERPRETATION Susceptible Pseudomonas aeruginosa Ceftazidime INTERPRETATION Susceptible Pseudomonas aeruginosa Ciprofloxacin INTERPRETATION Susceptible Pseudomonas aeruginosa Cefepime INTERPRETATION Susceptible Pseudomonas aeruginosa Imipenem INTERPRETATION Susceptible Pseudomonas aeruginosa Meropenem INTERPRETATION Susceptible Pseudomonas aeruginosa Piperacillin/Tazobactam INTERPR ETATION Susceptible Pseudomonas aeruginosa Tobramycin INTERPRETATION Susceptible Escherichia coli Ampicillin INTERPRETATION Intermediate Escherichia coli Cefazolin INTERPRETATION Intermediate Escherichia coli Gentamicin INTERPRETATION Susceptible Escherichia coli Ampicillin with Sulbactam INTERPRETAT ION Susceptible Escherichia coli Trimethoprim with Sulfamethoxazole INTERPRETATION Susceptible Escherichia coli Meropenem INTERPRETATION Susceptible Escherichia coli Cefepime INTERPRETATION Susceptible Escherichia coli Ciprofloxacin INTERPRETATION Resistant Escherichia coli Ceftazidime INTERPRETATION Susceptible Escherichia coli Ceftriaxone INTERPRETATION Susceptible Escherichia coli Piperacillin/Tazobactam INTERPRETATIO N Susceptible us Sharee MelissaLatanya Enciso DPM LAB MICROBIOLOGY - GENERAL O RDERABLES Final Result MARJORIE [facility] [place] [address] * eGFR (11/20/2024 3:48 AM CDT) eGFR 82 >=60 mL/min/1. 73 m2 [facility] Comment: Interpretive Data Reference Interval Normal >/= [...] was last reviewed 2021. Testing performed by: [facility], [address] [place] [address]., [address] Blood 11/20/2024 3:48 AM CDT 11/20/2024 8:43 AM CDT us Notinfile Unknown LAB BLOOD ORDERABLES Final Res ult MARJORIE [facility] Department [place] [address] * (ABNORMAL) Differential, auto (11/20/2024 3:48 AM CDT) Pathologist [facility] Neutrophil abs 6.07 1.50 - 6.50 K/cumm MARJORIE Comment:Testing performed by : [address] [address] Imm gran abs 0.07 0.00 - 0.10 K/cumm MARJORIE Comment:Testing performed by : [address], [place]., [address] Lymphocyte abs 1.42 0.80 - 3.30 K/cumm MARJORIE Comment:Testing performed by : [address] [address] Monocyte abs 0.95(H) 0.20 - 0.80 K/cumm MARJORIE Comment:Testing performed by : [address] [address] Eosinophil abs 0.39 0.00 - 0.50 K/cumm MARJORIE Comment:Testing performed by : [address] [address] Basophil abs 0.06 0.00 - 0.10 K/cumm MARJORIE Comment:Testing performed by : [address] [address] Neutrophil pct 67.7 % [facility] Comment: Interpretive Data Percent cell count reference ranges are not reported, since discordance with absolute values may lead to misinterpretation of CBC data. Current Interpretive Data was last revised on 2017. Testing performed by: [address] [address] Imm gran pct 0.8 % [facility] Comment: Interpretive Data Percent cell count reference ranges are not reported, since discordance with absolute values may lead to misinterpretation of CBC data. Current Interpretive Data was last revised on 2017. Testing performed by: [address] [address] Lymphocyte pct 15.8 % [facility] Comment: Interpretive Data Percent cell count reference ranges are not reported, since discordance with absolute values may lead to misinterpretation of CBC data. Current Interpretive Data was last revised on 2017. Testing performed by: [address] [address] Monocyte pct 10.6 % MARJ[facility]IE Comment: Interpretive Data Percent cell count reference ranges are not reported, since discordance with absolute values may lead to misinterpretation of CBC data. Current Interpretive Data was last revised on 2017. Testing performed by: [address] [address] Eosinophil pct 4.4 % MARJORIE Comment: Interpretive Data Percent cell count reference ranges are not reported, since discordance with absolute values may lead to misinterpretation of CBC data. Current Interpretive Data was last revised on 2017. Testing performed by: [address] [address] Basophil pct 0.7 % MARJORIE Comment: Interpretive Data Percent cell count reference ranges are not reported, since discordance with absolute values may lead to misinterpretation of CBC data. Current Interpretive Data was last revised on 2017. Testing performed by: [address] [address] Blood 11/20/2024 3:48 AM CDT 11/20/2024 8:43 AM CDT us Notinfile Unknown LAB BLOOD ORDERABLES Final Res ult MARJORIE [address] [facility] Department [place] [address] * (ABNORMAL) CBC with auto differential (11/20/2024 3:48 AM CDT) WBC 8.96 3.80 - 9.90 K/cumm MARJORIE SUTHERLAND Comment:Testing performed by : [address] [address] Hgb 9.4(L) 11.9 - 15.5 g/dL MARJORIE SUTHERLAND Comment:Testing performed by : [address] [address] Hct 29.9(L) 35.6 - 45.5 % MARJORIE Comment:Testing performed by : [address] [address] Plt 259 150 - 400 K/cumm MARJORIE SUTHERLAND Comment:Testing performed by : [address] [address] MPV 9.3 9.1 - 12.3 fL MARJORIE SUTHERLAND Comment:Testing performed by : [address] [address] RBC 3.16(L) 3.90 - 5.20 M/cumm MARJORIE SUTHERLAND Comment:Testing performed by : [address] [address] MCV 94.6 81.3 - 96.4 fL MARJORIE Comment:Testing performed by : [address] [address] MCH 29.7 27.1 - 33.3 pg MARJORIE SUTHERLAND Comment:Testing performed by : [address] [address] MCHC 31.4(L) 32.3 - 35.7 g/dL MARJORIE Comment:Testing performed by : [address] [address] RDW CV 13.3 11.1 - 14.9 % MARJORIE Comment:Testing performed by : [address], [address] RDW SD 46.1 35.7 - 48.1 fL MARJORIE Comment:Testing performed by : [address] [address] NRBC abs 0.00 0.00 - 0.01 K/cumm MARJORIE Comment:Testing performed by : [address] [address] Blood 11/20/2024 3:48 AM CDT 11/20/2024 8:43 AM CDT us Notinfile Unknown LAB BLOOD ORDERABLES Final Res ult MARJORIE SUTHERLAND [address] [facility] Department [place] [address] * Basic metabolic panel (11/20/2024 3:48 AM CDT) [facility] Sodium 136 135 - 145 mmol/L MARJORIE Comment:Testing performed by : [address], [place]., [address] Potassium, pl 3.6 3.3 - 4.9 mmol/L MARJORIE Comment:Testing performed by : [address], [place]., [address] Chloride 100 97 - 110 mmol/L MARJORIE Comment:Testing performed by : [address], [place]., [address] CO2 25 22 - 32 mmol/L MARJORIE Comment:Testing performed by : [address], [place]., [address] Anion gap 11 2 - 15 mmol/L MARJORIE Comment:Testing performed by : [address], [place]., [address] BUN 16 6 - 25 mg/dL MARJORIE Comment:Testing performed by : [address], [place]., [address] Creatinine 0.75 0.60 - 1.10 mg/dL MARJORIE Comment:Testing performed by : [address], [place]., [address] Glucose 96 70 - 199 mg/dL MARJORIE Comment: Interpretive [...] was last revised 2022. Testing performed by: [address] [address] Calcium 9.1 8.5 - 10.3 mg/dL MARJORIE Comment:Testing performed by : [address], [place]., [address] Blood 11/20/2024 3:48 AM CDT 11/20/2024 8:43 AM CDT us Notinfile Unknown LAB BLOOD ORDERABLES Final Res ult MARJORIE [address] [facility] Department [place] [address] * (ABNORMAL) Differential, auto (11/19/2024 3:27 AM CDT) Neutrophil abs 4.99 1.50 - 6.50 K/cumm MARJORIE Comment:Testing performed by : [address] [address] Imm gran abs 0.08 0.00 - 0.10 K/cumm MARJORIE Comment:Testing performed by : [address] [address] Lymphocyte abs 1.37 0.80 - 3.30 K/cumm MARJORIE Comment:Testing performed by : [address] [address] Monocyte abs 0.81(H) 0.20 - 0.80 K/cumm MARJORIE Comment:Testing performed by : [address] [address] Eosinophil abs 0.47 0.00 - 0.50 K/cumm MARJORIE Comment:Testing performed by : [address] [address] Basophil abs 0.09 0.00 - 0.10 K/cumm MARJORIE Comment:Testing performed by : [address] [address] Neutrophil pct 63.9 % MARJORIE Comment: Interpretive Data Percent cell count reference ranges are not reported, since discordance with absolute values may lead to misinterpretation of CBC data. Current Interpretive Data was last revised on 2017. Testing performed by: [address] [address] Imm gran pct 1.0 % MARJORIE Comment: Interpretive Data Percent cell count reference ranges are not reported, since discordance with absolute values may lead to misinterpretation of CBC data. Current Interpretive Data was last revised on 2017. Testing performed by: [address] [address] Lymphocyte pct 17.5 % MARJORIE Comment: Interpretive Data Percent cell count reference ranges are not reported, since discordance with absolute values may lead to misinterpretation of CBC data. Current Interpretive Data was last revised on 2017. Testing performed by: [address] [address] Monocyte pct 10.4 % MARJORIE Comment: Interpretive Data Percent cell count reference ranges are not reported, since discordance with absolute values may lead to misinterpretation of CBC data. Current Interpretive Data was last revised on 2017. Testing performed by: [address] [address] Eosinophil pct 6.0 % MARJORIE Comment: Interpretive Data Percent cell count reference ranges are not reported, since discordance with absolute values may lead to misinterpretation of CBC data. Current Interpretive Data was last revised on 2017. Testing performed by: [address] [address] Basophil pct 1.2 % [facility] Comment: Interpretive Data Percent cell count reference ranges are not reported, since discordance with absolute values may lead to misinterpretation of CBC data. Current Interpretive Data was last revised on 2017. Testing performed by: [address] [address] Blood 11/19/2024 3:27 AM CDT 11/19/2024 8:18 AM CDT us Notinfile Unknown LAB BLOOD ORDERABLES Final Res ult [facility] [address] [facility] Department [place] [address] * (ABNORMAL) CBC with auto differential (11/19/2024 3:27 AM CDT) WBC 7.81 3.80 - 9.90 K/cumm MARJORIE Comment:Testing performed by : [address] [address] Hgb 10.7(L) 11.9 - 15.5 g/dL MARJORIE Comment:Testing performed by : [address] [address] Hct 34.2(L) 35.6 - 45.5 % MARJORIE Comment:Testing performed by : [address] [address] Plt 292 150 - 400 K/cumm MARJORIE Comment:Testing performed by : [address] [address] MPV 9.6 9.1 - 12.3 fL MARJORIE Comment:Testing performed by : [address], [address] RBC 3.53(L) 3.90 - 5.20 M/cumm MARJORIE Comment:Testing performed by : [address] [address] MCV 96.9(H) 81.3 - 96.4 fL MARJORIE Comment:Testing performed by : [address] [address] MCH 30.3 27.1 - 33.3 pg MARJORIE Comment:Testing performed by : [address] [address] MCHC 31.3(L) 32.3 - 35.7 g/dL MARJORIE Comment:Testing performed by : [address] [address] RDW CV 13.4 11.1 - 14.9 % MARJORIE Comment:Testing performed by : [address] [address] RDW SD 47.8 35.7 - 48.1 fL MARJORIE Comment:Testing performed by : [address] [address] NRBC abs 0.00 0.00 - 0.01 K/cumm MARJORIE Comment:Testing performed by : [address] [address] Blood 11/19/2024 3:27 AM CDT 11/19/2024 8:18 AM CDT us Notinfile Unknown LAB BLOOD ORDERABLES Final Res ult Performing Organization Address [facility] de Phone Number MARJORIE [address] [employer] [place] [address] * (ABNORMAL) Erythrocyte sedimentation rate (11/19/2024 3:27 AM CDT) Erythrocyte sedimentation rate 61(H) 1 - 30 mm/hr MARJORIE Comment:Testing performed by : [address] [address] Blood 11/19/2024 3:27 AM CDT 11/19/2024 8:18 AM CDT us Notinfile Unknown LAB BLOOD ORDERABLES Final Res ult Performing Organization Address [facility] de Phone Number MARJORIE [address] [address] * (ABNORMAL) CRP (acute phase) (11/19/2024 3:27 AM CDT) Pathologist [facility] CRP 33.3(H) <=10.0 mg/L MARJORIE Comment:Testing performed by : [address] [address] Blood 11/19/2024 3:27 AM CDT 11/19/2024 8:18 AM CDT us Notinfile Unknown LAB BLOOD ORDERABLES Final Res ult Performing Organization Address [facility] Co de Phone Number MARJORIE [address] [employer] [place] [address] * eGFR (11/16/2024 3:48 AM CDT) Pathologist [facility] eGFR >90 >=60 mL/min/1. 73 m2 MARJORIE [...] was last reviewed 2021. Testing performed by: [address] [address] Blood 11/16/2024 3:48 AM CDT 11/16/2024 8:31 AM CDT us Notinfile Unknown LAB BLOOD ORDERABLES Final Res ult MARJORIE [facility] Department [place] [address] * (ABNORMAL) Differential, auto (11/16/2024 3:48 AM CDT) Neutrophil abs 5.64 1.50 - 6.50 K/cumm MARJORIE Comment:Testing performed by : [address] [address] Imm gran abs 0.14(H) 0.00 - 0.10 K/cumm MARJORIE Comment:Testing performed by : [address] [address] Lymphocyte abs 1.26 0.80 - 3.30 K/cumm MARJORIE Comment:Testing performed by : [address] [address] Monocyte abs 1.00(H) 0.20 - 0.80 K/cumm MARJORIE Comment:Testing performed by : [address] [address] Eosinophil abs 0.52(H) 0.00 - 0.50 K/cumm [facility] Comment:Testing performed by : [address] [address] Basophil abs 0.08 0.00 - 0.10 K/cumm MARJORIE Comment:Testing performed by : [address] [address] Neutrophil pct 65.3 % [facility] Comment: Interpretive Data Percent cell count reference ranges are not reported, since discordance with absolute values may lead to misinterpretation of CBC data. Current Interpretive Data was last revised on 2017. Testing performed by: [address] [address] Imm gran pct 1.6 % [facility] Comment: Interpretive Data Percent cell count reference ranges are not reported, since discordance with absolute values may lead to misinterpretation of CBC data. Current Interpretive Data was last revised on 2017. Testing performed by: [address] [address] Lymphocyte pct 14.6 % [facility] Comment: Interpretive Data Percent cell count reference ranges are not reported, since discordance with absolute values may lead to misinterpretation of CBC data. Current Interpretive Data was last revised on 2017. Testing performed by: [address] [address] Monocyte pct 11.6 % [facility] Comment: Interpretive Data Percent cell count reference ranges are not reported, since discordance with absolute values may lead to misinterpretation of CBC data. Current Interpretive Data was last revised on 2017. Testing performed by: [address] [address] Eosinophil pct 6.0 % [facility] Comment: Interpretive Data Percent cell count reference ranges are not reported, since discordance with absolute values may lead to misinterpretation of CBC data. Current Interpretive Data was last revised on 2017. Testing performed by: [address] [address] Basophil pct 0.9 % [facility] Comment: Interpretive Data Percent cell count reference ranges are not reported, since discordance with absolute values may lead to misinterpretation of CBC data. Current Interpretive Data was last revised on 2017. Testing performed by: [address] [address] Blood 11/16/2024 3:48 AM CDT 11/16/2024 8:31 AM CDT us Notinfile Unknown LAB BLOOD ORDERABLES Final Res ult MARJORIE [address] [facility] Department [place] [address] * (ABNORMAL) CBC with auto differential (11/16/2024 3:48 AM CDT) WBC 8.64 3.80 - 9.90 K/cumm MARJORIE SUTHERLAND Comment:Testing performed by : [address] [address] Hgb 9.7(L) 11.9 - 15.5 g/dL MARJORIE SUTHERLAND Comment:Testing performed by : [address] [address] Hct 31.3(L) 35.6 - 45.5 % MARJORIE Comment:Testing performed by : [address] [address] Plt 256 150 - 400 K/cumm MARJORIE Comment:Testing performed by : [address] [address] MPV 9.5 9.1 - 12.3 fL MARJORIE SUTHERLAND Comment:Testing performed by : [address] [address] RBC 3.24(L) 3.90 - 5.20 M/cumm MARJORIE SUTHERLAND Comment:Testing performed by : [address] [address] MCV 96.6(H) 81.3 - 96.4 fL MARJORIE SUTHERLAND Comment:Testing performed by : [address] [address] MCH 29.9 27.1 - 33.3 pg MARJORIE SUTHERLAND Comment:Testing performed by : [address] [address] MCHC 31.0(L) 32.3 - 35.7 g/dL MARJORIE SUTHERLAND Comment:Testing performed by : [address] [address] RDW CV 13.3 11.1 - 14.9 % MARJORIE SUTHERLAND Comment:Testing performed by : [address] [address] RDW SD 47.4 35.7 - 48.1 fL MARJORIE SUTHERLAND Comment:Testing performed by : [address] [address] NRBC abs 0.00 0.00 - 0.01 K/cumm MARJORIE SUTHERLAND Comment:Testing performed by : [address] [address] Blood 11/16/2024 3:48 AM CDT 11/16/2024 8:31 AM CDT us Notinfile Unknown LAB BLOOD ORDERABLES Final Res ult MARJORIE [address] [facility] Department [place] [address] * (ABNORMAL) Comprehensive metabolic panel (11/16/2024 3:48 AM CDT) Sodium 136 135 - 145 mmol/L MARJORIE SUTHERLAND Comment:Testing performed by : [address] [address] Potassium, pl 4.1 3.3 - 4.9 mmol/L MARJORIE SUTHERLAND Comment: Hemolyzed; Potassium value may be falsely elevated by as much as 1.0 mmol/L. Suggest redraw and reanalysis. Testing performed by: [address] [address] Chloride 102 97 - 110 mmol/L MARJORIE SUTHERLAND Comment:Testing performed by : [address] [address] CO2 25 22 - 32 mmol/L MARJORIE SUTHERLAND Comment:Testing performed by : [address] [address] Anion gap 9 2 - 15 mmol/L MARJORIE SUTHERLAND Comment:Testing performed by : [address] [address] BUN 13 6 - 25 mg/dL MARJORIE Comment:Testing performed by : [address] [address] Creatinine 0.63 0.60 - 1.10 mg/dL MARJORIE Comment:Testing performed by : [address] [address] Glucose 89 70 - 199 mg/dL MARJORIE Comment: Interpretive [...] was last revised 2022. Testing performed by: [address] [address] Calcium 9.3 8.5 - 10.3 mg/dL MARJORIE Comment:Testing performed by : [address] [address] Bilirubin, total 0.2 0.1 - 1.2 mg/dL MARJORIE Comment:Testing performed by : [address] [address] Protein, pl 6.1(L) 6.5 - 8.5 g/dL MARJORIE Comment:Testing performed by : [address] [address] Albumin 3.2(L) 3.5 - 5.0 g/dL MARJORIE Comment:Testing performed by : [address] [address] Alk phos 119 40 - 130 Units/L MARJORIE Comment:Testing performed by : [address] [address] ALT 62(H) 7 - 45 Units/L MARJORIE Comment:Testing performed by : [facility], [address] [place] [address]., [address] AST 58(H) 10 - 45 Units/L MARJORIE SUTHERLAND Comment: Hemolyzed; result may be falsely elevated Testing performed by: [address] [address] Blood 11/16/2024 3:48 AM CDT 11/16/2024 8:31 AM CDT us Notinfile Unknown LAB BLOOD ORDERABLES Final Res ult Performing Organization Address [facility] de Phone Number MARJORIE [facility] Department [place] [address] * eGFR (11/09/2024 4:19 AM CDT) eGFR >90 >=60 mL/min/1. 73 [...] was last reviewed 2021. Testing performed by: [facility], [address] [place] [address]., [address] Blood 11/09/2024 4:19 AM CDT 11/09/2024 8:41 AM CDT us Notinfile Unknown LAB BLOOD ORDERABLES Final Res ult Performing Organization Address City/[facility]/ZIP Co de Phone Number MARJORIE [address] [facility] Department [place] [address] * (ABNORMAL) Differential, auto (11/09/2024 4:19 AM CDT) Neutrophil abs 4.65 1.50 - 6.50 K/cumm MARJORIE Comment:Testing performed by : [address] [address] Imm gran abs 0.05 0.00 - 0.10 K/cumm MARJORIE Comment:Testing performed by : [address] [address] Lymphocyte abs 1.24 0.80 - 3.30 K/cumm MARJORIE Comment:Testing performed by : [address] [address] Monocyte abs 0.86(H) 0.20 - 0.80 K/cumm MARJORIE Comment:Testing performed by : [address] [address] Eosinophil abs 0.48 0.00 - 0.50 K/cumm MARJORIE Comment:Testing performed by : [address] [address] Basophil abs 0.06 0.00 - 0.10 K/cumm MARJORIE Comment:Testing performed by : [address] [address] Neutrophil pct 63.4 % MARJORIE Comment: Interpretive Data Percent cell count reference ranges are not reported, since discordance with absolute values may lead to misinterpretation of CBC data. Current Interpretive Data was last revised on 2017. Testing performed by: [address] [address] Imm gran pct 0.7 % MARJORIE Comment: Interpretive Data Percent cell count reference ranges are not reported, since discordance with absolute values may lead to misinterpretation of CBC data. Current Interpretive Data was last revised on 2017. Testing performed by: [address] [address] Lymphocyte pct 16.9 % MARJORIE Comment: Interpretive Data Percent cell count reference ranges are not reported, since discordance with absolute values may lead to misinterpretation of CBC data. Current Interpretive Data was last revised on 2017. Testing performed by: [address] [address] Monocyte pct 11.7 % MARJORIE Comment: Interpretive Data Percent cell count reference ranges are not reported, since discordance with absolute values may lead to misinterpretation of CBC data. Current Interpretive Data was last revised on 2017. Testing performed by: [address] [address] Eosinophil pct 6.5 % MARJORIE Comment: Interpretive Data Percent cell count reference ranges are not reported, since discordance with absolute values may lead to misinterpretation of CBC data. Current Interpretive Data was last revised on 2017. Testing performed by: [address] [address] Basophil pct 0.8 % MARJORIE Comment: Interpretive Data Percent cell count reference ranges are not reported, since discordance with absolute values may lead to misinterpretation of CBC data. Current Interpretive Data was last revised on 2017. Testing performed by: [address] [address] Blood 11/09/2024 4:19 AM CDT 11/09/2024 8:41 AM CDT us Notinfile Unknown LAB BLOOD ORDERABLES Final Res ult MARJORIE [address] [facility] Department of Laboratories [place], [place] [id number] * (ABNORMAL) CBC with auto differential (11/09/2024 4:19 AM CDT) WBC 7.34 3.80 - 9.90 K/cumm MARJORIE SUTHERLAND Comment:Testing performed by : [address] [address] Hgb 9.4(L) 11.9 - 15.5 g/dL MARJORIE SUTHERLAND Comment:Testing performed by : [address] [address] Hct 30.0(L) 35.6 - 45.5 % MARJORIE Comment:Testing performed by : [address], [address] Plt 237 150 - 400 K/cumm MARJORIE SUTHERLAND Comment:Testing performed by : [address] [address] MPV 9.5 9.1 - 12.3 fL MARJORIE Comment:Testing performed by : [address], [address] RBC 3.10(L) 3.90 - 5.20 M/cumm MARJORIE Comment:Testing performed by : [address], [address] MCV 96.8(H) 81.3 - 96.4 fL MARJORIE Comment:Testing performed by : [address], [address] MCH 30.3 27.1 - 33.3 pg MARJORIE Comment:Testing performed by : [address], [address] MCHC 31.3(L) 32.3 - 35.7 g/dL MARJORIE Comment:Testing performed by : [address], [address] RDW CV 13.1 11.1 - 14.9 % MARJORIE Comment:Testing performed by : [address], [address] RDW SD 46.0 35.7 - 48.1 fL MARJORIE Comment:Testing performed by : [address], [address] NRBC abs 0.00 0.00 - 0.01 K/cumm MARJORIE Comment:Testing performed by : [address], [address] Blood 11/09/2024 4:19 AM CDT 11/09/2024 8:41 AM CDT us Notinfile Unknown LAB BLOOD ORDERABLES Final Res ult MARJORIE SUTHERLAND [address] [facility] Department [place] [address] * (ABNORMAL) Comprehensive metabolic panel (11/09/2024 4:19 AM CDT) Sodium 137 135 - 145 mmol/L MARJORIE SUTHERLAND Comment:Testing performed by : [facility], [address] [place] [address]., [address] Potassium, pl 3.5 3.3 - 4.9 mmol/L MARJORIE Comment:Testing performed by : [address], [place]., [address] Chloride 101 97 - 110 mmol/L MARJORIE Comment:Testing performed by : [address], [place]., [address] CO2 27 22 - 32 mmol/L MARJORIE Comment:Testing performed by : [address], [place]., [address] Anion gap 9 2 - 15 mmol/L MARJORIE Comment:Testing performed by : [address] [address] BUN 11 6 - 25 mg/dL MARJORIE Comment:Testing performed by : [address], [place]., [address] Creatinine 0.64 0.60 - 1.10 mg/dL MARJORIE Comment:Testing performed by : [address] [address] Glucose 94 70 - 199 mg/dL MARJORIE Comment: Interpretive [...] was last revised 2022. Testing performed by: [address], [place]., [address] Calcium 9.1 8.5 - 10.3 mg/dL MARJORIE Comment:Testing performed by : [address] [address] Bilirubin, total 0.3 0.1 - 1.2 mg/dL MARJORIE Comment:Testing performed by : [address] [address] Protein, pl 5.7(L) 6.5 - 8.5 g/dL MARJORIE Comment:Testing performed by : [address] [address] Albumin 2.9(L) 3.5 - 5.0 g/dL MARJORIE Comment:Testing performed by : [address] [address] Alk phos 105 40 - 130 Units/L MARJORIE Comment:Testing performed by : [address] [address] ALT 24 7 - 45 Units/L MARJORIE Comment:Testing performed by : [address] [address] AST 39 10 - 45 Units/L MARJORIE Comment:Testing performed by : [address] [address] Blood 11/09/2024 4:19 AM CDT 11/09/2024 8:41 AM CDT us Notinfile Unknown LAB BLOOD ORDERABLES Final Res ult MARJORIE [address] [facility] Department of Laboratories [place], [place] [id number] * eGFR (11/08/2024 3:51 AM CDT) eGFR >90 >=60 mL/min/1. 73 [...] interpretive data was last reviewed 2021. Blood 11/08/2024 3:51 AM CDT 11/08/2024 3:56 AM CDT us Wyatt Kim MD LAB BLOOD ORDERABLES Fi nal Result [place] 658[address] [facility] Department [place] [address] * (ABNORMAL) Differential, auto (11/08/2024 3:51 AM CDT) Neutrophil abs 9.18(H) 1.50 - 6.50 K/cumm Imm gran abs 0.06 0.00 - 0.10 K/cumm [facility] Lymphocyte abs 0.94 0.80 - 3.30 K/cumm [facility] Monocyte abs 1.00(H) 0.20 - 0.80 K/cumm [facility] Eosinophil abs 0.21 0.00 - 0.50 K/cumm [facility] Basophil abs 0.06 0.00 - 0.10 K/cumm [facility] Neutrophil pct 80.3 % [facility] Comment: Interpretive Data Percent cell count reference ranges are not reported, since discordance with absolute values may lead to misinterpretation of CBC data. Current Interpretive Data was last revised on 2017. Imm gran pct 0.5 % [facility] Comment: Interpretive Data Percent cell count reference ranges are not reported, since discordance with absolute values may lead to misinterpretation of CBC data. Current Interpretive Data was last revised on 2017. Lymphocyte pct 8.2 % [facility] Comment: Interpretive Data Percent cell count reference ranges are not reported, since discordance with absolute values may lead to misinterpretation of CBC data. Current Interpretive Data was last revised on 2017. Monocyte pct 8.7 % [facility] Comment: Interpretive Data Percent cell count reference ranges are not reported, since discordance with absolute values may lead to misinterpretation of CBC data. Current Interpretive Data was last revised on 2017. Eosinophil pct 1.8 % [facility] Comment: Interpretive Data Percent cell count reference ranges are not reported, since discordance with absolute values may lead to misinterpretation of CBC data. Current Interpretive Data was last revised on 2017. Basophil pct 0.5 % [facility] Comment: Interpretive Data Percent cell count reference ranges are not reported, since discordance with absolute values may lead to misinterpretation of CBC data. Current Interpretive Data was last revised on 2017. Blood 11/08/2024 3:51 AM CDT 11/08/2024 3:56 AM CDT Wyatt Kim MD LAB BLOOD ORDERABLES [facility] Result [place] [id number] [facility] Department [place] [address] * (ABNORMAL) CBC with auto differential (11/08/2024 3:51 AM CDT) WBC 11.45(H) 3.80 - 9.90 K/cumm Hgb 9.7(L) 11.9 - 15.5 g/dL [facility] Hct 31.0(L) 35.6 - 45.5 % [facility] Plt 236 150 - 400 K/cumm [facility] MPV 9.2 9.1 - 12.3 fL [facility] RBC 3.18(L) 3.90 - 5.20 M/cumm [facility] MCV 97.5(H) 81.3 - 96.4 fL [facility] MCH 30.5 27.1 - 33.3 pg [facility] MCHC 31.3(L) 32.3 - 35.7 g/dL [facility] RDW CV 12.9 11.1 - 14.9 % [facility] RDW SD 45.6 35.7 - 48.1 fL [facility] NRBC abs 0.00 0.00 - 0.01 K/cumm [facility] Blood 11/08/2024 3:51 AM CDT 11/08/2024 3:56 AM CDT Wyatt Kim MD LAB BLOOD ORDERABLES Fi nal Result Performing Organization Address [facility] Co de Phone Number [address] [place] [address] * (ABNORMAL) Basic metabolic panel (11/08/2024 3:51 AM CDT) Sodium 134(L) 135 - 145 mmol/L Potassium, pl 3.8 3.3 - 4.9 mmol/L [facility] Chloride 99 97 - 110 mmol/L [facility] CO2 23 22 - 32 mmol/L [facility] Anion gap 12 2 - 15 mmol/L [facility] BUN 9 6 - 25 mg/dL [facility] Creatinine 0.61 0.60 - 1.10 mg/dL [facility] Glucose 109 70 - 199 mg/dL [facility] Comment: Interpretive Data Fasting glucose >/= 126 [...] 2022. Calcium 8.7 8.5 - 10.3 mg/dL [facility] Blood 11/08/2024 3:51 AM CDT 11/08/2024 3:56 AM CDT Wyatt Kim MD LAB BLOOD ORDERABLES Fi nal Result Performing Organization Address City/[facility]/ZIP Co de Phone Number [address] [place] [address] * eGFR (11/07/2024 6:36 AM CDT) [facility] eGFR >90 >=60 mL/min/1. 73 m2 [...] interpretive data was last reviewed 2021. Blood 11/07/2024 6:36 AM CDT 11/07/2024 6:53 AM CDT us Wyatt Kim MD LAB BLOOD ORDERABLES nal Result [facility] [address] [facility] Department [place] [address] * (ABNORMAL) Differential, auto (11/07/2024 6:36 AM CDT) [facility] Neutrophil abs 5.22 1.50 - 6.50 K/cumm Imm gran abs 0.07 0.00 - 0.10 K/cumm [facility] Lymphocyte abs 0.94 0.80 - 3.30 K/cumm [facility] Monocyte abs 0.84(H) 0.20 - 0.80 K/cumm [facility] Eosinophil abs 0.39 0.00 - 0.50 K/cumm [facility] Basophil abs 0.06 0.00 - 0.10 K/cumm [facility] Neutrophil pct 69.4 % [facility] Comment: Interpretive Data Percent cell count reference ranges are not reported, since discordance with absolute values may lead to misinterpretation of CBC data. Current Interpretive Data was last revised on 2017. Imm gran pct 0.9 % [facility] Comment: Interpretive Data Percent cell count reference ranges are not reported, since discordance with absolute values may lead to misinterpretation of CBC data. Current Interpretive Data was last revised on 2017. Lymphocyte pct 12.5 % [facility] Comment: Interpretive Data Percent cell count reference ranges are not reported, since discordance with absolute values may lead to misinterpretation of CBC data. Current Interpretive Data was last revised on 2017. Monocyte pct 11.2 % [facility] Comment: Interpretive Data Percent cell count reference ranges are not reported, since discordance with absolute values may lead to misinterpretation of CBC data. Current Interpretive Data was last revised on 2017. Eosinophil pct 5.2 % [facility] Comment: Interpretive Data Percent cell count reference ranges are not reported, since discordance with absolute values may lead to misinterpretation of CBC data. Current Interpretive Data was last revised on 2017. Basophil pct 0.8 % [facility] Comment: Interpretive Data Percent cell count reference ranges are not reported, since discordance with absolute values may lead to misinterpretation of CBC data. Current Interpretive Data was last revised on 2017. Blood 11/07/2024 6:36 AM CDT 11/07/2024 6:53 AM CDT us Wyatt Kim MD LAB BLOOD ORDERABLES Fi nal Result [facility] [address] [facility] Department of Laboratories [place], [place] [id number] * (ABNORMAL) CBC with auto differential (11/07/2024 6:36 AM CDT) WBC 7.52 3.80 - 9.90 K/cumm Hgb 9.3(L) 11.9 - 15.5 g/dL [facility] Hct 29.5(L) 35.6 - 45.5 % [facility] Plt 195 150 - 400 K/cumm [facility] MPV 9.5 9.1 - 12.3 fL [facility] RBC 3.01(L) 3.90 - 5.20 M/cumm [facility] MCV 98.0(H) 81.3 - 96.4 fL [facility] MCH 30.9 27.1 - 33.3 pg [facility] MCHC 31.5(L) 32.3 - 35.7 g/dL [facility] RDW CV 13.1 11.1 - 14.9 % [facility] RDW SD 46.4 35.7 - 48.1 fL [facility] NRBC abs 0.00 0.00 - 0.01 K/cumm [facility] Blood 11/07/2024 6:36 AM CDT 11/07/2024 6:53 AM CDT Wyatt Kim MD LAB BLOOD ORDERABLES Fi nal Result [facility] [address] [facility] Department [place] [address] * Basic metabolic panel (11/07/2024 6:36 AM CDT) Sodium 135 135 - 145 mmol/L Potassium, pl 4.2 3.3 - 4.9 mmol/L [facility] Chloride 100 97 - 110 mmol/L [facility] CO2 27 22 - 32 mmol/L [facility] Anion gap 8 2 - 15 mmol/L [facility] BUN 11 6 - 25 mg/dL [facility] Creatinine 0.65 0.60 - 1.10 mg/dL [facility] Glucose 101 70 - 199 mg/dL [facility] Comment: Interpretive Data Fasting glucose >/= 126 [...] 2022. Calcium 9.0 8.5 - 10.3 mg/dL [facility] Blood 11/07/2024 6:36 AM CDT 11/07/2024 6:53 AM CDT Wyatt Kim MD LAB BLOOD ORDERABLES Fi nal Result [address] [place] [place] [address] * eGFR (11/06/2024 5:04 AM CDT) eGFR 88 >=60 mL/min/1. 73 m2 Comment: Interpretive Data [...] interpretive data was last reviewed 2021. Blood 11/06/2024 5:04 AM CDT 11/06/2024 6:11 AM CDT Wyatt Kim MD LAB BLOOD ORDERABLES Fi nal Result [address] [employer] [place] [address] * (ABNORMAL) Differential, auto (11/06/2024 5:04 AM CDT) Neutrophil abs 4.89 1.50 - 6.50 K/cumm Imm gran abs 0.10 0.00 - 0.10 K/cumm [facility] Lymphocyte abs 1.24 0.80 - 3.30 K/cumm [facility] Monocyte abs 0.91(H) 0.20 - 0.80 K/cumm [facility] Eosinophil abs 0.29 0.00 - 0.50 K/cumm [facility] Basophil abs 0.06 0.00 - 0.10 K/cumm [facility] Neutrophil pct 65.3 % [facility] Comment: Interpretive Data Percent cell count reference ranges are not reported, since discordance with absolute values may lead to misinterpretation of CBC data. Current Interpretive Data was last revised on 2017. Imm gran pct 1.3 % [facility] Comment: Interpretive Data Percent cell count reference ranges are not reported, since discordance with absolute values may lead to misinterpretation of CBC data. Current Interpretive Data was last revised on 2017. Lymphocyte pct 16.6 % [facility] Comment: Interpretive Data Percent cell count reference ranges are not reported, since discordance with absolute values may lead to misinterpretation of CBC data. Current Interpretive Data was last revised on 2017. Monocyte pct 12.1 % [facility] Comment: Interpretive Data Percent cell count reference ranges are not reported, since discordance with absolute values may lead to misinterpretation of CBC data. Current Interpretive Data was last revised on 2017. Eosinophil pct 3.9 % [facility] Comment: Interpretive Data Percent cell count reference ranges are not reported, since discordance with absolute values may lead to misinterpretation of CBC data. Current Interpretive Data was last revised on 2017. Basophil pct 0.8 % [facility] Comment: Interpretive Data Percent cell count reference ranges are not reported, since discordance with absolute values may lead to misinterpretation of CBC data. Current Interpretive Data was last revised on 2017. Blood 11/06/2024 5:04 AM CDT 11/06/2024 6:10 AM CDT us Wyatt Kim MD LAB BLOOD ORDERABLES Fi nal Result [facility] [address] [facility] Department [place] [address] * (ABNORMAL) CBC with auto differential (11/06/2024 5:04 AM CDT) [facility] WBC 7.49 3.80 - 9.90 K/cumm Hgb 9.6(L) 11.9 - 15.5 g/dL [facility] Hct 31.0(L) 35.6 - 45.5 % [facility] Plt 203 150 - 400 K/cumm [facility] MPV 9.3 9.1 - 12.3 fL [facility] RBC 3.15(L) 3.90 - 5.20 M/cumm [facility] MCV 98.4(H) 81.3 - 96.4 fL [facility] MCH 30.5 27.1 - 33.3 pg [facility] MCHC 31.0(L) 32.3 - 35.7 g/dL [facility] RDW CV 13.3 11.1 - 14.9 % [facility] RDW SD 47.5 35.7 - 48.1 fL [facility] NRBC abs 0.00 0.00 - 0.01 K/cumm [facility] Blood 11/06/2024 5:04 AM CDT 11/06/2024 6:10 AM CDT Wyatt Kim MD LAB BLOOD ORDERABLES nal Result [facility] [address] [facility] Department [place] [address] * Basic metabolic panel (11/06/2024 5:04 AM CDT) [facility] Sodium 136 135 - 145 mmol/L Potassium, pl 3.9 3.3 - 4.9 mmol/L [facility] Chloride 101 97 - 110 mmol/L [facility] CO2 26 22 - 32 mmol/L [facility] Anion gap 9 2 - 15 mmol/L [facility] BUN 11 6 - 25 mg/dL [facility] Creatinine 0.71 0.60 - 1.10 mg/dL [facility] Glucose 91 70 - 199 mg/dL [facility] Comment: Interpretive Data Fasting glucose >/= 126 [...] 2022. Calcium 8.9 8.5 - 10.3 mg/dL [facility] Blood 11/06/2024 5:04 AM CDT 11/06/2024 6:11 AM CDT Wyatt Kim MD LAB BLOOD ORDERABLES Fi nal Result Performing Organization Address City/[facility]/ZIP Co de Phone Number [address] [employer] [place] [address] * (ABNORMAL) Hemoglobin and hematocrit (11/05/2024 10:49 AM CDT) Pathologist [facility] Hgb 9.5(L) 11.9 - 15.5 g/dL Hct 30.2(L) 35.6 - 45.5 % [place] Blood 11/05/2024 10:4 9 AM CDT 11/05/2024 10:55 AM CDT Maikel Pennington MD LAB BLOOD ORDERABLES Final Result Performing Organization Address City/[facility]/ZIP Co de Phone Number [address] [place] [employer] [place] [address] * Blood culture Blood (11/05/2024 8:05 AM CDT) Report Final Report: No growth Comment:Testing performed by : [facility], [address] [facility], [place]., [address] Blood 11/05/2024 8:05 AM CDT 11/05/2024 12:19 PM CDT Narrative MARJORIE - 11/09/2024 4:00 PM CDT From a different site than #1. [...] performance characteristics have been verified by the [facility] Microbiology [facility]. For questions about this culture, contact the Microbiology Laboratory at [phone]. Interpretive data was last revised on 24. Maikel Pennington MD LAB MICROBIOLOGY - G [facility] ORDERABLES Final Result [place] [address] [facility] Department [place] [address] * Blood culture Blood (11/05/2024 8:04 AM CDT) Report Final Report: No growth Comment:Testing performed by : [facility], [address] [facility], [place]., [address] Blood 11/05/2024 8:04 AM CDT 11/05/2024 12:19 PM CDT Kodi AMADOR - 11/09/2024 4:00 PM CDT Collection->Peripheral 1. Blood cultures are incubated [...] performance characteristics have been verified by the [facility]. For questions about this culture, contact the Microbiology Laboratory at [phone]. Interpretive data was last revised on 24. Maikel Pennington MD LAB MICROBIOLOGY - G ENERAL ORDERABLES Final Result Performing Organization Address [facility] Co de Phone Number MARJORIE [address] [employer] [place] [address] * Creatine kinase (CK), total (11/05/2024 8:04 AM CDT) [facility] CK 74 30 - 200 Units/L Blood 11/05/2024 8:04 AM CDT 11/05/2024 8:11 AM CDT Wyatt Kim MD LAB BLOOD ORDERABLES Fi nal Result Performing Organization Address [facility] Co de Phone Number [place] [id number] [facility] [employer] [place] [address] * eGFR (11/05/2024 4:25 AM CDT) Pathologist [facility] eGFR >90 >=60 mL/min/1. 73 m2 [...] interpretive data was last reviewed 2021. Blood 11/05/2024 4:25 AM CDT 11/05/2024 4:41 AM CDT us Wyatt Kim MD LAB BLOOD ORDERABLES Fi nal Result [place] [address] [facility] Department [place] [address] * (ABNORMAL) Differential, auto (11/05/2024 4:25 AM CDT) Pathologist [facility] Neutrophil abs 6.06 1.50 - 6.50 K/cumm Imm gran abs 0.09 0.00 - 0.10 K/cumm [facility] Lymphocyte abs 1.30 0.80 - 3.30 K/cumm [facility] Monocyte abs 0.93(H) 0.20 - 0.80 K/cumm [facility] Eosinophil abs 0.22 0.00 - 0.50 K/cumm [facility] Basophil abs 0.05 0.00 - 0.10 K/cumm [facility] Neutrophil pct 70.1 % [facility] Comment: Interpretive Data Percent cell count reference ranges are not reported, since discordance with absolute values may lead to misinterpretation of CBC data. Current Interpretive Data was last revised on 2017. Imm gran pct 1.0 % [facility] Comment: Interpretive Data Percent cell count reference ranges are not reported, since discordance with absolute values may lead to misinterpretation of CBC data. Current Interpretive Data was last revised on 2017. Lymphocyte pct 15.0 % [facility] Comment: Interpretive Data Percent cell count reference ranges are not reported, since discordance with absolute values may lead to misinterpretation of CBC data. Current Interpretive Data was last revised on 2017. Monocyte pct 10.8 % [facility] Comment: Interpretive Data Percent cell count reference ranges are not reported, since discordance with absolute values may lead to misinterpretation of CBC data. Current Interpretive Data was last revised on 2017. Eosinophil pct 2.5 % [facility] Comment: Interpretive Data Percent cell count reference ranges are not reported, since discordance with absolute values may lead to misinterpretation of CBC data. Current Interpretive Data was last revised on 2017. Basophil pct 0.6 % [facility] Comment: Interpretive Data Percent cell count reference ranges are not reported, since discordance with absolute values may lead to misinterpretation of CBC data. Current Interpretive Data was last revised on 2017. Blood 11/05/2024 4:25 AM CDT 11/05/2024 4:41 AM CDT Wyatt Kim MD LAB BLOOD ORDERABLES Fi nal Result [place] [id number] [facility] Department [place] [address] * (ABNORMAL) CBC with auto differential (11/05/2024 4:25 AM CDT) WBC 8.65 3.80 - 9.90 K/cumm Hgb 8.8(L) 11.9 - 15.5 g/dL [facility] Hct 28.5(L) 35.6 - 45.5 % [facility] Plt 179 150 - 400 K/cumm [facility] MPV 9.4 9.1 - 12.3 fL [facility] RBC 2.90(L) 3.90 - 5.20 M/cumm [facility] MCV 98.3(H) 81.3 - 96.4 fL [facility] MCH 30.3 27.1 - 33.3 pg [facility] MCHC 30.9(L) 32.3 - 35.7 g/dL [facility] RDW CV 13.2 11.1 - 14.9 % [facility] RDW SD 47.8 35.7 - 48.1 fL [facility] NRBC abs 0.00 0.00 - 0.01 K/cumm [facility] Blood 11/05/2024 4:25 AM CDT 11/05/2024 4:41 AM CDT Wyatt Kim MD LAB BLOOD ORDERABLES Fi nal Result Performing Organization Address [facility] de Phone Number [address] [employer] [place] [address] * Basic metabolic panel (11/05/2024 4:25 AM CDT) Sodium 136 135 - 145 mmol/L Potassium, pl 3.9 3.3 - 4.9 mmol/L [facility] Chloride 103 97 - 110 mmol/L [facility] CO2 24 22 - 32 mmol/L [facility] Anion gap 9 2 - 15 mmol/L [facility] BUN 13 6 - 25 mg/dL [facility] Creatinine 0.62 0.60 - 1.10 mg/dL [facility] Glucose 97 70 - 199 mg/dL [facility] Comment: Interpretive Data Fasting glucose >/= 126 [...] 2022. Calcium 8.6 8.5 - 10.3 mg/dL [facility] Blood 11/05/2024 4:25 AM CDT 11/05/2024 4:41 AM CDT Wyatt Kim MD LAB BLOOD ORDERABLES Fi nal Result Performing Organization Address [facility] de Phone Number [address] [place] [address] * XR Knee Right 1 or 2 View (11/04/2024 9:47 PM CDT) Anatomical Region Laterality Modality Lower Extremities, Knee Right Computed Radiography 11/04/2024 11:5 2 PM CDT Narrative 11/04/2024 11:54 PM CDT EXAM DESCRIPTION: XR KNEE RIGHT 1 OR 2 VIEWS REASON FOR STUDY: Post-op Knee replacement Post op right TKR 11/04/24 Pt unable to turn leg for x table lateral due to pain, tried to compensate with tube angle, tube head can only rotate so much TECHNIQUE: Two radiographic views of the right knee. COMPARISON: Plain films of the right knee of October 20, 2024. 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 There is no cortical discontinuity or trabecular irregularity to suggest fracture. Bones and hardware are in normal alignment and unchanged from previous. Patella is intact. SOFT TISSUES: Evaluation for joint effusion is somewhat limited secondary to patient positioning, however, no large joint effusion is identified. The soft tissues are unremarkable. Anterior skin precious have been removed in the interval since previous study. IMPRESSION: Status post right total knee arthroplasty without plain film evidence of postoperative complication. THIS IS AN ELECTRONICALLY VERIFIED FINAL REPORT 11/04/2024 11:54 PM - Electronically signed by Dayana Khalil M.D. SN T: Report ID: [id number] Reading Location: [id number] Procedure Note Dayana Khalil MD - 11/04/2024 EXAM DESCRIPTION: XR KNEE RIGHT 1 OR 2 VIEWS REASON FOR STUDY: Post-op Knee replacement Post op right TKR 11/04/24 Pt unable to turn leg for x table lateral dueto pain, tried to compensate with tube angle, tube head can only rotate somuch TECHNIQUE: Two radiographic views of the right knee. COMPARISON: Plain films of the right knee of October 20, 2024. 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 Bones and hardware are in normal alignment and unchanged from previous. Patella is intact. SOFT TISSUES: Evaluation for joint effusion is somewhat limited secondaryto patient positioning, however, no large joint effusion is identified.The soft tissues are unremarkable. Anterior skin precious have been removedin the interval since previous study. IMPRESSION: Status post right total knee arthroplasty without plain film evidence of postoperative complication. THIS IS AN ELECTRONICALLY VERIFIED FINAL REPORT 11/04/2024 11:54 PM - Electronically signed by Dayana hKalil M.D. SN T: Report ID: [id number] Reading Location: [id number] Wyatt Kim MD IMG XR PROCEDURES Final Result * Aerobic and anaerobic culture and gram stain Wound Knee, right (11/04/2024 9:07 PM CDT) Direct Specimen Exam Stain: Rare polymorphonuclear leukocytes seen. No organisms seen. Comment:Testing performed by : [facility], [address] [place]., [address] Report Final Report: No growth MARJORIE SUTHERLAND Comment:Testing performed by : [facility], [address] [place]., [address] Wound (Knee, right) 11/04/2024 9:07 PM CDT 11/05/2024 7:50 AM CDT Narrative MARJORIE SUTHERLAND - 11/10/2024 7:39 AM CDT Specimen received on an ESwab. Testing performed by [facility] ([phone]) Specimens submitted from normally sterile body sites [...] interpretive data was last revised on 2019. Wyatt Kim MD LAB MICROBIOLOGY - GENE RAL ORDERABLES Final Result MARJORIE SUTHERLAND [address] [facility] [place] [employer] [place] [address] * CA AN ELECTIVE ENDOTRACHEAL AIRWAY, CA AN PROCEDURE PLACEHOLDER (11/04/2024 8:53 PM CDT) Narrative Lesly Ling CRNA - 11/04/2024 8:53 PM CDT Lesly Ling CRNA 11/04/2024 8:53 PM Airway Patient location: OR Urgency: elective Date/time: 11/04/2024 8:46 PM Indications for airway management: anesthesia and airway protection Difficult airway: no Staff: Placed by: IS CONSULTANT: Lesly Ling CRNA Emergent airway documentation: Risks and benefits discussed: yes Consent obtained: yes Consent given by: patient Airway prep: Preoxygenated: yes Patient position: sniffing Mask difficulty assessment: 2 - vent by mask + OA or adjuvant Spontaneous ventilation during airway: absent Sedation level during airway: GA Final airway details: Final airway type: endotracheal airway Tube type: ETT ETT size: 7.0 mm Cuffed: yes Technique used for successful ETT placement: video laryngoscopy Devices/Methods used in placement: intubating stylet and cricoid pressure Insertion site: oral Video blade type: Glidescope Cormack-Lehane (video): grade I - full view of glottis Cuff inflated with: air Placement verified by: auscultation and CO2 detection Airway secured with: other (pink tape) Number of attempts: 1 Additional comments: Gums/lips/teeth atraumatic after intubation, RSI induction us Truman Noble MD ANESTHESIA ORDERABLES Final R esult * Sepsis Lactate w/ Reflex (11/04/2024 5:02 PM CDT) Sepsis Lactate 1.0 0.7 - 2.0 mmol/L Blood 11/04/2024 5:02 PM CDT 11/04/2024 5:07 PM CDT us Ernesto JUAREZ LAB BLOOD ORDERABL ES Final Result MARJORIE [address] [facility] Department [place] [address] * eGFR (11/04/2024 5:02 PM CDT) [facility] eGFR >90 >=60 mL/min/1. 73 m2 [...] interpretive data was last reviewed 2021. Blood 11/04/2024 5:02 PM CDT 11/04/2024 5:07 PM CDT us Enresto JUAREZ LAB BLOOD ORDERABL ES Final Result [facility] [address] [facility] Department [place] [address] * (ABNORMAL) Differential, auto (11/04/2024 5:02 PM CDT) Pathologist [facility] Neutrophil abs 6.91(H) 1.50 - 6.50 K/cumm Imm gran abs 0.08 0.00 - 0.10 K/cumm [facility] Lymphocyte abs 1.38 0.80 - 3.30 K/cumm [facility] Monocyte abs 1.02(H) 0.20 - 0.80 K/cumm [facility] Eosinophil abs 0.27 0.00 - 0.50 K/cumm [facility] Basophil abs 0.07 0.00 - 0.10 K/cumm [facility] Neutrophil pct 71.0 % [facility] Comment: Interpretive Data Percent cell count reference ranges are not reported, since discordance with absolute values may lead to misinterpretation of CBC data. Current Interpretive Data was last revised on 2017. Imm gran pct 0.8 % [facility] Comment: Interpretive Data Percent cell count reference ranges are not reported, since discordance with absolute values may lead to misinterpretation of CBC data. Current Interpretive Data was last revised on 2017. Lymphocyte pct 14.2 % [facility] Comment: Interpretive Data Percent cell count reference ranges are not reported, since discordance with absolute values may lead to misinterpretation of CBC data. Current Interpretive Data was last revised on 2017. Monocyte pct 10.5 % [facility] Comment: Interpretive Data Percent cell count reference ranges are not reported, since discordance with absolute values may lead to misinterpretation of CBC data. Current Interpretive Data was last revised on 2017. Eosinophil pct 2.8 % [facility] Comment: Interpretive Data Percent cell count reference ranges are not reported, since discordance with absolute values may lead to misinterpretation of CBC data. Current Interpretive Data was last revised on 2017. Basophil pct 0.7 % [facility] Comment: Interpretive Data Percent cell count reference ranges are not reported, since discordance with absolute values may lead to misinterpretation of CBC data. Current Interpretive Data was last revised on 2017. Blood 11/04/2024 5:02 PM CDT 11/04/2024 5:07 PM CDT us Ernesto JUAREZ LAB BLOOD ORDERABL ES Final Result [facility] [address] [facility] Department [place] [address] * (ABNORMAL) CBC with auto differential (11/04/2024 5:02 PM CDT) WBC 9.73 3.80 - 9.90 K/cumm Hgb 10.3(L) 11.9 - 15.5 g/dL [facility] Hct 32.6(L) 35.6 - 45.5 % [facility] Plt 254 150 - 400 K/cumm [facility] MPV 9.7 9.1 - 12.3 fL [facility] RBC 3.33(L) 3.90 - 5.20 M/cumm [facility] MCV 97.9(H) 81.3 - 96.4 fL [facility] MCH 30.9 27.1 - 33.3 pg [facility] MCHC 31.6(L) 32.3 - 35.7 g/dL [facility] RDW CV 13.2 11.1 - 14.9 % [facility] RDW SD 46.7 35.7 - 48.1 fL [facility] NRBC abs 0.00 0.00 - 0.01 K/cumm [facility] Blood 11/04/2024 5:02 PM CDT 11/04/2024 5:07 PM CDT us Ernesto JUAREZ LAB BLOOD ORDERABL ES Final Result [facility] [address] [facility] Department [place] [address] * (ABNORMAL) Comprehensive metabolic panel (11/04/2024 5:02 PM CDT) Sodium 134(L) 135 - 145 mmol/L Potassium, pl 4.5 3.3 - 4.9 mmol/L [facility] Comment:Hemolyzed; Potassium value may be falsely elevated by as much as 1.0 mmol/L. Suggest redraw and reanalysis. Chloride 100 97 - 110 mmol/L [facility] CO2 22 22 - 32 mmol/L [facility] Anion gap 12 2 - 15 mmol/L [facility] BUN 18 6 - 25 mg/dL [facility] Creatinine 0.64 0.60 - 1.10 mg/dL [facility] Glucose 109 70 - 199 mg/dL [facility] Comment: Interpretive Data Fasting glucose >/= 126 [...] interpretive data was last revised 2022. Calcium 9.2 8.5 - 10.3 mg/dL [facility] Bilirubin, total 0.3 0.1 - 1.2 mg/dL [facility] Protein, pl 6.4(L) 6.5 - 8.5 g/dL [facility] Albumin 3.3(L) 3.5 - 5.0 g/dL [facility] Alk phos 129 40 - 130 Units/L [facility] ALT See Comment [facility] Comment:Credited; Hemolyzed Specimen AST See Comment [facility] Comment:Credited; Hemolyzed Specimen Blood 11/04/2024 5:02 PM CDT 11/04/2024 5:07 PM CDT Ernesto JUAREZ LAB BLOOD ORDERABL ES Final Result [facility] [address] [facility] Department [place] [address] * eGFR (10/29/2024 4:59 AM CDT) eGFR [...] JUAREZ LAB BLOOD ORDERABLES Quynh ervin Result Performing Organization Address City/[facility]/ZIP Co de Phone Number [facility] [address] [employer] [place] [address] * (ABNORMAL) CBC without differential (10/29/2024 4:59 AM CDT) Pathologist [facility] WBC 8.70 3.80 - 9.90 K/cumm Hgb 9.5(L) 11.9 - 15.5 g/dL [facility] Hct 30.5(L) 35.6 - 45.5 % [facility] Plt 229 150 - 400 K/cumm [facility] MPV 8.8(L) 9.1 - 12.3 fL [facility] RBC 3.06(L) 3.90 - 5.20 M/cumm [facility] MCV 99.7(H) 81.3 - 96.4 fL [facility] MCH 31.0 27.1 - 33.3 pg [facility] MCHC 31.1(L) 32.3 - 35.7 g/dL [facility] RDW CV 12.8 11.1 - 14.9 % [facility] RDW SD 45.9 35.7 - 48.1 fL [facility] NRBC abs 0.00 0.00 - 0.01 K/cumm [facility] Blood 10/29/2024 4:59 AM CDT 10/29/2024 5:08 AM CDT Betty JUAREZ LAB BLOOD ORDERABLES Quynh l Result Performing Organization Address City/[facility]/ZIP Co de Phone Number MARJORIE [address] [employer] [place] [address] * (ABNORMAL) Creatine kinase (CK), total (10/29/2024 4:59 AM CDT) CK 17(L) 30 - 200 Units/L Blood 10/29/2024 4:59 AM CDT 10/29/2024 5:08 AM CDT Vitaliy Alcazar MD LAB BLOOD ORDERABLES Final R esult Performing Organization Address [facility] Co de Phone Number [address] [employer] [place] [address] * Basic metabolic panel (10/29/2024 4:59 AM CDT) Pathologist [facility] Sodium 136 135 - 145 mmol/L Potassium, pl 4.1 3.3 - 4.9 mmol/L [facility] Chloride 104 97 - 110 mmol/L [facility] CO2 23 22 - 32 mmol/L [facility] Anion gap 9 2 - 15 mmol/L [facility] BUN 9 6 - 25 mg/dL [facility] Creatinine 0.61 0.60 - 1.10 mg/dL [facility] Glucose 104 70 - 199 mg/dL [facility] Comment: Interpretive Data Fasting glucose >/= 126 [...] 2022. Calcium 8.8 8.5 - 10.3 mg/dL [facility] Blood 10/29/2024 4:59 AM CDT 10/29/2024 5:08 AM CDT us Betty JUAREZ LAB BLOOD ORDERABLES Quynh l Result Performing Organization Address City/[facility]/ZIP Co de Phone Number [address] [employer] [place] [address] * XR Chest 1 View (10/28/2024 10:00 [...] Trav Mederos M.D. AM T: Report ID: [id number] Reading Location: [id number] Procedure Note Trav Mederos MD - 10/28/2024 [...] Trav Mederos M.D. AM T: Report ID: [id number] Reading Location: [id number] us Adelfo Marsh MD IMG XR PROCEDURES [...] JUAREZ LAB BLOOD ORDERABLES Quynh l Result [facility] [address] [facility] [place] [address] * (ABNORMAL) CBC without differential (10/28/2024 6:47 AM CDT) [facility] WBC 7.85 3.80 - 9.90 K/cumm Hgb 9.8(L) 11.9 - 15.5 g/dL [facility] Hct 31.4(L) 35.6 - 45.5 % [facility] Plt 248 150 - 400 K/cumm [facility] MPV 9.0(L) 9.1 - 12.3 fL [facility] RBC 3.19(L) 3.90 - 5.20 M/cumm [facility] MCV 98.4(H) 81.3 - 96.4 fL [facility] MCH 30.7 27.1 - 33.3 pg [facility] MCHC 31.2(L) 32.3 - 35.7 g/dL [facility] RDW CV 12.7 11.1 - 14.9 % [facility] RDW SD 45.3 35.7 - 48.1 fL [facility] NRBC abs 0.00 0.00 - 0.01 K/cumm [facility] Blood 10/28/2024 6:47 AM CDT 10/28/2024 7:51 AM CDT Betty JUAREZ LAB BLOOD ORDERABLES Quynh l Result [facility] [address] [place] [address] * Basic metabolic panel (10/28/2024 6:47 AM CDT) [facility] Sodium 137 135 - 145 mmol/L Potassium, pl 3.9 3.3 - 4.9 mmol/L [facility] Chloride 103 97 - 110 mmol/L [facility] CO2 25 22 - 32 mmol/L [facility] Anion gap 9 2 - 15 mmol/L [facility] BUN 8 6 - 25 mg/dL [facility] Creatinine 0.64 0.60 - 1.10 mg/dL [facility] Glucose 93 70 - 199 mg/dL [facility] Comment: Interpretive Data Fasting glucose >/= 126 [...] 2022. Calcium 8.9 8.5 - 10.3 mg/dL MARJORIE Blood 10/28/2024 6:47 AM CDT 10/28/2024 7:51 AM CDT us Betty JUAREZ LAB BLOOD ORDERABLES Quynh l Result MARJORIE [address] [facility] Department [place] [address] * X-ray chest 1 view (Portable) (10/27/2024 [...] Maryam Rose M.D. TW T: Report ID: [id number] Reading Location: [id number] Procedure Note Maryam Rose MD - 10/27/2024 [...] Maryam Rose M.D. TW T: Report ID: [id number] Reading Location: [id number] Vitaliy Alcazar MD IMG XR PROCEDURES Final [...] JUAREZ LAB BLOOD ORDERABLES Quynh ervin Result [facility] [address] [facility] Department [place] [address] * (ABNORMAL) Differential, auto (10/27/2024 7:21 AM CDT) Neutrophil abs 5.76 1.50 - 6.50 K/cumm Imm gran abs 0.08 0.00 - 0.10 K/cumm [facility] Lymphocyte abs 1.45 0.80 - 3.30 K/cumm [facility] Monocyte abs 0.88(H) 0.20 - 0.80 K/cumm [facility] Eosinophil abs 0.43 0.00 - 0.50 K/cumm [facility] Basophil abs 0.06 0.00 - 0.10 K/cumm [facility] Neutrophil pct 66.5 % [facility] Comment: Interpretive Data Percent cell count reference ranges are not reported, since discordance with absolute values may lead to misinterpretation of CBC data. Current Interpretive Data was last revised on 2017. Imm gran pct 0.9 % [facility] Comment: Interpretive Data Percent cell count reference ranges are not reported, since discordance with absolute values may lead to misinterpretation of CBC data. Current Interpretive Data was last revised on 2017. Lymphocyte pct 16.7 % [facility] Comment: Interpretive Data Percent cell count reference ranges are not reported, since discordance with absolute values may lead to misinterpretation of CBC data. Current Interpretive Data was last revised on 2017. Monocyte pct 10.2 % [facility] Comment: Interpretive Data Percent cell count reference ranges are not reported, since discordance with absolute values may lead to misinterpretation of CBC data. Current Interpretive Data was last revised on 2017. Eosinophil pct 5.0 % [facility] Comment: Interpretive Data Percent cell count reference ranges are not reported, since discordance with absolute values may lead to misinterpretation of CBC data. Current Interpretive Data was last revised on 2017. Basophil pct 0.7 % [facility] Comment: Interpretive Data Percent cell count reference ranges are not reported, since discordance with absolute values may lead to misinterpretation of CBC data. Current Interpretive Data was last revised on 2017. Blood 10/27/2024 7:21 AM CDT 10/27/2024 7:54 AM CDT Vitaliy Alcazar MD LAB BLOOD ORDERABLES Final R esult Performing Organization Address [facility] Co de Phone Number [facility] [address] [employer] [place] [address] * (ABNORMAL) CBC with auto differential (10/27/2024 7:21 AM CDT) WBC 8.66 3.80 - 9.90 K/cumm Hgb 10.0(L) 11.9 - 15.5 g/dL [facility] Hct 31.5(L) 35.6 - 45.5 % [facility] Plt 288 150 - 400 K/cumm [facility] MPV 8.9(L) 9.1 - 12.3 fL [facility] RBC 3.27(L) 3.90 - 5.20 M/cumm [facility] MCV 96.3 81.3 - 96.4 fL [facility] MCH 30.6 27.1 - 33.3 pg [facility] MCHC 31.7(L) 32.3 - 35.7 g/dL [facility] RDW CV 12.6 11.1 - 14.9 % [facility] RDW SD 43.9 35.7 - 48.1 fL [facility] NRBC abs 0.00 0.00 - 0.01 K/cumm [facility] Blood 10/27/2024 7:21 AM CDT 10/27/2024 7:54 AM CDT us Vitaliy Alcazar MD LAB BLOOD ORDERABLES Final R esult Performing Organization Address City/[facility] Co de Phone Number MARJORIE [address] [employer] [place] [address] * Basic metabolic panel (10/27/2024 7:21 AM CDT) Pathologist [facility] Sodium 138 135 - 145 mmol/L Potassium, pl 4.0 3.3 - 4.9 mmol/L [facility] Chloride 104 97 - 110 mmol/L [facility] CO2 24 22 - 32 mmol/L [facility] Anion gap 10 2 - 15 mmol/L [facility] BUN 6 6 - 25 mg/dL [facility] Creatinine 0.61 0.60 - 1.10 mg/dL [facility] Glucose 94 70 - 199 mg/dL [facility] Comment: Interpretive Data Fasting glucose >/= 126 [...] 2022. Calcium 8.6 8.5 - 10.3 mg/dL [facility] Blood 10/27/2024 7:21 AM CDT 10/27/2024 7:54 AM CDT Betty JUAREZ LAB BLOOD ORDERABLES Quynh ervin Result [facility] [address] [facility] Department [place] [address] * eGFR (10/26/2024 6:09 AM CDT) eGFR [...] MD LAB BLOOD ORDERABLES Final R esult [facility] [address] [facility] Department of Laboratories [place], [place] [id number] * (ABNORMAL) Differential, auto (10/26/2024 6:09 AM CDT) Neutrophil abs 4.07 1.50 - 6.50 K/cumm Imm gran abs 0.07 0.00 - 0.10 K/cumm [facility] Lymphocyte abs 1.36 0.80 - 3.30 K/cumm [facility] Monocyte abs 0.76 0.20 - 0.80 K/cumm [facility] Eosinophil abs 0.53(H) 0.00 - 0.50 K/cumm [facility] Basophil abs 0.06 0.00 - 0.10 K/cumm [facility] Neutrophil pct 59.4 % [facility] Comment: Interpretive Data Percent cell count reference ranges are not reported, since discordance with absolute values may lead to misinterpretation of CBC data. Current Interpretive Data was last revised on 2017. Imm gran pct 1.0 % [facility] Comment: Interpretive Data Percent cell count reference ranges are not reported, since discordance with absolute values may lead to misinterpretation of CBC data. Current Interpretive Data was last revised on 2017. Lymphocyte pct 19.9 % [facility] Comment: Interpretive Data Percent cell count reference ranges are not reported, since discordance with absolute values may lead to misinterpretation of CBC data. Current Interpretive Data was last revised on 2017. Monocyte pct 11.1 % [facility] Comment: Interpretive Data Percent cell count reference ranges are not reported, since discordance with absolute values may lead to misinterpretation of CBC data. Current Interpretive Data was last revised on 2017. Eosinophil pct 7.7 % [facility] Comment: Interpretive Data Percent cell count reference ranges are not reported, since discordance with absolute values may lead to misinterpretation of CBC data. Current Interpretive Data was last revised on 2017. Basophil pct 0.9 % [facility] Comment: Interpretive Data Percent cell count reference ranges are not reported, since discordance with absolute values may lead to misinterpretation of CBC data. Current Interpretive Data was last revised on 2017. Blood 10/26/2024 6:09 AM CDT 10/26/2024 6:26 AM CDT us Vitaliy Alcazar MD LAB BLOOD ORDERABLES Final R esult [place] [id number] [facility] Department [place] [address] * (ABNORMAL) CBC with auto differential (10/26/2024 6:09 AM CDT) WBC 6.85 3.80 - 9.90 K/cumm Hgb 9.2(L) 11.9 - 15.5 g/dL [facility] Hct 28.6(L) 35.6 - 45.5 % [facility] Plt 254 150 - 400 K/cumm [facility] MPV 8.8(L) 9.1 - 12.3 fL [facility] RBC 3.01(L) 3.90 - 5.20 M/cumm [facility] MCV 95.0 81.3 - 96.4 fL [facility] MCH 30.6 27.1 - 33.3 pg [facility] MCHC 32.2(L) 32.3 - 35.7 g/dL [facility] RDW CV 12.2 11.1 - 14.9 % [facility] RDW SD 42.5 35.7 - 48.1 fL [facility] NRBC abs 0.00 0.00 - 0.01 K/cumm [facility] Blood 10/26/2024 6:09 AM CDT 10/26/2024 6:26 AM CDT us Vitaliy Alcazar MD LAB BLOOD ORDERABLES Final R esult Performing Organization Address [facility] Co de Phone Number [address] [address] * Hemoglobin A1c (10/26/2024 6:09 AM CDT) Hgb A1C 5.1 4.0 - 5.6 % Estimated Average Glucose 100 mg/dL [facility] Comment: The ADA recommends reporting an estimated Average Glucose (eAG) with all Hemoglobin A1c results using the equation derived from a study of 507 normal and diabetic adults. Minority populations were underrepresented and children were not included. (Diabetes Care 31:8836-4373, 2008). The eAG is not equivalent to a fasting glucose. Blood 10/26/2024 6:09 AM CDT 10/26/2024 6:26 AM CDT us Bhupinder Bobo MD LAB BLOOD ORDERABLES Final Result Performing Organization Address [facility] Co de Phone Number [address] [address] * (ABNORMAL) Creatine kinase (CK), total (10/26/2024 6:09 AM CDT) Pathologist [facility] CK 19(L) 30 - 200 Units/L Blood 10/26/2024 6:09 AM CDT 10/26/2024 6:26 AM CDT us Adelfo Marsh MD LAB BLOOD ORDERABLES F inal Result Performing Organization Address [facility] Co de Phone Number [address] [address] * (ABNORMAL) Comprehensive metabolic panel (10/26/2024 6:09 AM CDT) Sodium 139 135 - 145 mmol/L Potassium, pl 4.2 3.3 - 4.9 mmol/L [facility] Chloride 106 97 - 110 mmol/L [facility] CO2 25 22 - 32 mmol/L [facility] Anion gap 8 2 - 15 mmol/L [facility] BUN 6 6 - 25 mg/dL [facility] Creatinine 0.55(L) 0.60 - 1.10 mg/dL [facility] Glucose 90 70 - 199 mg/dL [facility] Comment: Interpretive Data Fasting glucose >/= 126 [...] 2022. Calcium 8.7 8.5 - 10.3 mg/dL [facility] Bilirubin, total 0.2 0.1 - 1.2 mg/dL [facility] Protein, pl 5.4(L) 6.5 - 8.5 g/dL [facility] Albumin 2.9(L) 3.5 - 5.0 g/dL [facility] Alk phos 142(H) 40 - 130 Units/L [facility] ALT 14 7 - 45 Units/L [facility] AST 22 10 - 45 Units/L [facility] Blood 10/26/2024 6:09 AM CDT 10/26/2024 6:26 AM CDT us Vitaliy Alcazar MD LAB BLOOD ORDERABLES Final R esult MARJORIE [address] [facility] Department [place] [address] * eGFR (10/25/2024 7:17 AM [...] ORDERABLES Quynh l Result Performing Organization Address City/[facility]/ZIP Co de Phone Number [address] [employer] [place], [place] [id number] * Thyroid Function Ada (10/25/2024 7:17 AM CDT) Pathologist [facility] TSH 1.47 0.30 - 4.20 mcIUnit/mL Blood 10/25/2024 7:17 AM CDT 10/25/2024 7:59 AM CDT Bhupinder Bobo MD LAB BLOOD ORDERABLES Final Result Performing Organization Address [facility]/ZIP Co de Phone Number [address] [employer] [place], [place] [id number] * (ABNORMAL) CBC without differential (10/25/2024 7:17 AM CDT) Pathologist [facility] WBC 6.32 3.80 - 9.90 K/cumm Hgb 10.2(L) 11.9 - 15.5 g/dL [facility] Hct 32.2(L) 35.6 - 45.5 % [facility] Plt 275 150 - 400 K/cumm [facility] MPV 9.0(L) 9.1 - 12.3 fL [facility] RBC 3.28(L) 3.90 - 5.20 M/cumm [facility] MCV 98.2(H) 81.3 - 96.4 fL [facility] MCH 31.1 27.1 - 33.3 pg [facility] MCHC 31.7(L) 32.3 - 35.7 g/dL [facility] RDW CV 12.0 11.1 - 14.9 % [facility] RDW SD 43.7 35.7 - 48.1 fL [facility] NRBC abs 0.00 0.00 - 0.01 K/cumm [facility] Blood 10/25/2024 7:17 AM CDT 10/25/2024 7:59 AM CDT Betty JUAREZ LAB BLOOD ORDERABLES Quynh l Result Performing Organization Address [facility] Co de Phone Number [address] [employer] [place] [address] * Magnesium (10/25/2024 7:17 AM CDT) [facility] Magnesium 2.4 1.4 - 2.5 mg/dL Blood 10/25/2024 7:17 AM CDT 10/25/2024 7:59 AM CDT Md Chi Velásquez MD LAB BLOOD ORDERABLES Final Resu lt Performing Organization Address [facility] Co de Phone Number [address] [employer] [place], [place] [phone] * (ABNORMAL) Basic metabolic panel (10/25/2024 7:17 AM CDT) [facility] Sodium 140 135 - 145 mmol/L Potassium, pl 4.4 3.3 - 4.9 mmol/L [facility] Chloride 105 97 - 110 mmol/L [facility] CO2 26 22 - 32 mmol/L [facility] Anion gap 9 2 - 15 mmol/L [facility] BUN 6 6 - 25 mg/dL [facility] Creatinine 0.55(L) 0.60 - 1.10 mg/dL [facility] Glucose 89 70 - 199 mg/dL [facility] Comment: Interpretive Data Fasting glucose >/= 126 [...] 2022. Calcium 8.7 8.5 - 10.3 mg/dL [facility] Blood 10/25/2024 7:17 AM CDT 10/25/2024 7:59 AM CDT Betty JUAREZ LAB BLOOD ORDERABLES Quynh l Result [facility] [address] [facility] Department [place] [address] * eGFR (10/24/2024 7:38 AM CDT) eGFR [...] ORDERABLES Quynh l Result Performing Organization Address [facility] Co de Phone Number [facility] [address] [employer] [place] [address] * (ABNORMAL) CBC without differential (10/24/2024 7:38 AM CDT) [facility] WBC 6.81 3.80 - 9.90 K/cumm Hgb 9.7(L) 11.9 - 15.5 g/dL [facility] Hct 29.7(L) 35.6 - 45.5 % [facility] Plt 247 150 - 400 K/cumm [facility] MPV 9.6 9.1 - 12.3 fL [facility] RBC 3.02(L) 3.90 - 5.20 M/cumm [facility] MCV 98.3(H) 81.3 - 96.4 fL [facility] MCH 32.1 27.1 - 33.3 pg [facility] MCHC 32.7 32.3 - 35.7 g/dL [facility] RDW CV 12.3 11.1 - 14.9 % [facility] RDW SD 44.4 35.7 - 48.1 fL [facility] NRBC abs 0.00 0.00 - 0.01 K/cumm [facility] Blood 10/24/2024 7:38 AM CDT 10/24/2024 7:47 AM CDT Betty JUAREZ LAB BLOOD ORDERABLES Quynh l Result Performing Organization Address [facility] Co de Phone Number [id number] [place] [address] * Magnesium (10/24/2024 7:38 AM CDT) [facility] Magnesium 2.4 1.4 - 2.5 mg/dL Blood 10/24/2024 7:38 AM CDT 10/24/2024 7:47 AM CDT Md Chi Velásquez MD LAB BLOOD ORDERABLES Final Resu lt Performing Organization Address City/State/[facility] Co de Phone Number [facility] [address] [facility] Department [place] [address] * (ABNORMAL) Basic metabolic panel (10/24/2024 7:38 AM CDT) [facility] Sodium 133(L) 135 - 145 mmol/L Potassium, pl 4.8 3.3 - 4.9 mmol/L [facility] Comment:Hemolyzed; Potassium value may be falsely elevated by as much as 1.0 mmol/L. Suggest redraw and reanalysis. Chloride 99 97 - 110 mmol/L [facility] CO2 26 22 - 32 mmol/L [facility] Anion gap 8 2 - 15 mmol/L [facility] BUN 9 6 - 25 mg/dL [facility] Creatinine 0.58(L) 0.60 - 1.10 mg/dL [facility] Glucose 101 70 - 199 mg/dL [facility] Comment: Interpretive Data Fasting glucose >/= 126 [...] 2022. Calcium 8.5 8.5 - 10.3 mg/dL [facility] Blood 10/24/2024 7:38 AM CDT 10/24/2024 7:47 AM CDT Betty JUAREZ LAB BLOOD ORDERABLES Quynh l Result Performing Organization Address City/[facility]/ZIP Co de Phone Number MARJORIE [facility] [place] [address] * Blood culture Blood (10/23/2024 3:47 PM CDT) Report Final Report: No growth Comment:Testing performed by : [facility], [address] [place] [address] Blood 10/23/2024 3:47 PM CDT 10/23/2024 8:22 [...] performance characteristics have been verified by the [facility] Microbiology Laboratory. For questions about this culture, contact the Microbiology Laboratory at [phone]. Interpretive data was last revised on 24. Md Chi Velásquez MD LAB MICROBIOLOGY - GENERAL JR LEMUS Final Result Performing Organization Address City/[facility]/ZIP Co de Phone Number MARJORIE [address] [facility] Department [place] [employer] [place] [address] * Blood culture Blood (10/23/2024 3:47 PM CDT) Report Final Report: No growth Comment:Testing performed by : [facility], [address] [facility], [place]., [address] Blood 10/23/2024 3:47 PM CDT 10/23/2024 8:22 PM CDT Narrative MARJORIE SUTHERLAND - 10/28/2024 7:00 AM CDT Collection->Peripheral 1. [...] performance characteristics have been verified by the [facility]biology [facility]. For questions about this culture, contact the Microbiology Laboratory at [phone]. Interpretive data was last revised on 24. Md Chi Velásquez MD LAB MICROBIOLOGY - GENERAL JR LEMUS Final Result MARJORIE [address] [facility] Department of Laboratories [place], [place] [phone] * eGFR (10/23/2024 8:59 AM CDT) eGFR [...] JUAREZ LAB BLOOD ORDERABLES Quynh ervin Result [place] [id number] [facility] Department of Laboratories [place], [place] [phone] * (ABNORMAL) CBC without differential (10/23/2024 8:59 AM CDT) WBC 6.64 3.80 - 9.90 K/cumm Hgb 9.6(L) 11.9 - 15.5 g/dL [facility] Hct 29.8(L) 35.6 - 45.5 % [facility] Plt 204 150 - 400 K/cumm [facility] MPV 8.8(L) 9.1 - 12.3 fL [facility] RBC 3.08(L) 3.90 - 5.20 M/cumm [facility] MCV 96.8(H) 81.3 - 96.4 fL [facility] MCH 31.2 27.1 - 33.3 pg [facility] MCHC 32.2(L) 32.3 - 35.7 g/dL [facility] RDW CV 12.4 11.1 - 14.9 % [facility] RDW SD 43.9 35.7 - 48.1 fL [facility] NRBC abs 0.00 0.00 - 0.01 K/cumm [facility] Blood 10/23/2024 8:59 AM CDT 10/23/2024 9:07 AM CDT Betty Calvin PA LAB BLOOD ORDERABLES Quynh l Result Performing Organization Address City/[facility]/ZIP Co de Phone Number [address] [place] [address] * (ABNORMAL) CRP (acute phase) (10/23/2024 8:59 AM CDT) Pathologist [facility] CRP 129.0(H) <=10.0 mg/L Blood 10/23/2024 8:59 AM CDT 10/23/2024 9:07 AM CDT Kimberly Ross COMMUNITY ACTION WORKER LAB BLOOD ORDERABLES Final R esult Performing Organization Address [facility] Co de Phone Number [address] [address] * (ABNORMAL) Basic metabolic panel (10/23/2024 8:59 AM CDT) Pathologist [facility] Sodium 133(L) 135 - 145 mmol/L Potassium, pl 3.9 3.3 - 4.9 mmol/L [facility] Chloride 98 97 - 110 mmol/L [facility] CO2 25 22 - 32 mmol/L [facility] Anion gap 10 2 - 15 mmol/L [facility] BUN 10 6 - 25 mg/dL [facility] Creatinine 0.63 0.60 - 1.10 mg/dL [facility] Glucose 123 70 - 199 mg/dL [facility] Comment: Interpretive Data Fasting glucose >/= 126 [...] 2022. Calcium 8.1(L) 8.5 - 10.3 mg/dL MARJORIE SUTHERLAND Blood 10/23/2024 8:59 AM CDT 10/23/2024 9:07 AM CDT us Betty MelissaLatanya JUAREZ LAB BLOOD ORDERABLES Quynh l Result MARJORIE [address] [facility] Department [place] [address] * XR Chest Pa Lateral 2 Views [...] by Blake Rosas M.D. T: Report ID: [id number] Reading Location: [id number] Procedure Note Blake Rosas Jr., MD - [...] by Blake Rosas M.D. T: Report ID: [id number] Reading Location: [place] [address] us Kimberly Ross [employer]UNITY [employer] WORKER IMG XR PROCEDURES Final Resu lt * [...] et.al. Eur Heart J. 2006:27:330-337. 2. Trinity CABELLO, Mojgan MARTINEZ. J. AM Jeremi Cardiol: Cardiovasc Imag. 2009;2: 216- 225. Interpretive Data Last Revised Date: 2018. Blood 10/22/2024 5:40 PM CDT 10/22/2024 5:45 PM CDT us Kimberly Ross NP LAB BLOOD ORDERABLES Final R esult MARJORIE [address] [facility] Department [place] [address] * Blood culture Blood (10/22/2024 5:40 PM CDT) Report Final Report: No growth Comment:Testing performed by : [facility], [address] [facility], [place]., [address] Blood 10/22/2024 5:40 PM CDT 10/22/2024 7:14 [...] performance characteristics have been verified by the [facility] Microbiology Laboratory. For questions about this culture, contact the Microbiology Laboratory at [phone]. Interpretive data was last revised on 24. Kimberly Ross COMMUNITY ACTION WORKER LAB MICROBIOLOGY - GENERAL O RDERABLES Final Result MARJORIE [address] [facility] Department [place] [address] * Blood culture Blood (10/22/2024 4:16 PM CDT) Report Final Report: No growth Comment:Testing performed by : [facility], [address] [place] [address] Blood 10/22/2024 4:16 PM CDT 10/22/2024 7:10 PM CDT [facility] MARJORIE [facility] 10/27/2024 7:00 AM CDT Collection->Peripheral 1. Blood [...] performance characteristics have been verified by the [facility]. For questions about this culture, contact the Microbiology Laboratory at [phone]. Interpretive data was last revised on 24. Kimberly Ross NP LAB MICROBIOLOGY - GENERAL O RDERABLES Final Result Performing Organization Address [facility] Co de Phone Number MARJORIE [address] [address] * eGFR (10/22/2024 7:45 AM CDT) eGFR [...] ORDERABLES Quynh l Result Performing Organization Address City/[facility]/ZIP Co de Phone Number [address] [place] [address] * (ABNORMAL) CBC without differential (10/22/2024 7:45 AM CDT) Pathologist [facility] WBC 7.20 3.80 - 9.90 K/cumm Hgb 9.5(L) 11.9 - 15.5 g/dL [facility] Hct 30.0(L) 35.6 - 45.5 % [facility] Plt 224 150 - 400 K/cumm [facility] MPV 8.8(L) 9.1 - 12.3 fL [facility] RBC 3.05(L) 3.90 - 5.20 M/cumm [facility] MCV 98.4(H) 81.3 - 96.4 fL [facility] MCH 31.1 27.1 - 33.3 pg [facility] MCHC 31.7(L) 32.3 - 35.7 g/dL [facility] RDW CV 12.5 11.1 - 14.9 % [facility] RDW SD 44.3 35.7 - 48.1 fL [facility] NRBC abs 0.00 0.00 - 0.01 K/cumm [facility] Blood 10/22/2024 7:45 AM CDT 10/22/2024 8:08 AM CDT Betty JUAREZ LAB BLOOD ORDERABLES Quynh ervin Result [facility] [address] [facility] Department [place] [address] * (ABNORMAL) Basic metabolic panel (10/22/2024 7:45 AM CDT) Sodium 135 135 - 145 mmol/L Potassium, pl 4.0 3.3 - 4.9 mmol/L [facility] Chloride 101 97 - 110 mmol/L [facility] CO2 25 22 - 32 mmol/L [facility] Anion gap 9 2 - 15 mmol/L [facility] BUN 12 6 - 25 mg/dL [facility] Creatinine 0.74 0.60 - 1.10 mg/dL [facility] Glucose 91 70 - 199 mg/dL [facility] Comment: Interpretive Data Fasting glucose >/= 126 [...] 2022. Calcium 8.3(L) 8.5 - 10.3 mg/dL MARJORIE Blood 10/22/2024 7:45 AM CDT 10/22/2024 8:08 AM CDT Betty JUAREZ LAB BLOOD ORDERABLES Quynh l Result MARJORIE [address] [facility] Department [place] [address] * (ABNORMAL) Aerobic and anaerobic culture and gram stain Wound Knee, right (10/21/2024 2:16 PM CDT) Direct Specimen Exam Stain: Rare polymorphonuclear leukocytes seen. No organisms seen. Comment:Testing performed by : [facility], [address] [place]., [address] Report Final Report: Few Corynebacterium tuberculostearicum This is a non-standardized susceptibility test. Rare Staphylococcus epidermidis Rare Enterococcus faecalis (.) [facility] Comment:Testing performed by : [facility], [address] [place]., [address] Organism STAPHYLOCOCCUS EPIDERMIDIS [facility] Organism ENTEROCOCCUS FAECALIS [facility] Organism CORYNEBACTERIUM TUBERCULOSTEARICUM [facility] Wound (Knee, right) 10/21/2024 2:16 PM CDT 10/21/2024 6:11 PM CDT Narrative [facility] - 11/02/2024 1:24 PM CDT Deep right knee for culture Specimen received on an ESwab. Testing performed by [facility] ([phone]) Specimens submitted from normally sterile body sites [...] ERAL ORDERABLES Final Result Performing Organization Address City/State/[facility] Co de Phone Number MAGGYNER [address] [facility] Department [place] [address] * CA AN ELECTIVE ENDOTRACHEAL AIRWAY, CA AN PROCEDURE PLACEHOLDER (10/21/2024 2:13 PM CDT) Narrative Desiree Melo CRNA - 10/21/2024 2:13 PM CDT Desiree Melo CRNA 10/21/2024 2:14 PM Airway Patient location: OR Urgency: elective Indications for airway management: anesthesia Difficult airway: no Staff: Supervising provider: Amelie Delgado MD Placed by: IS CONSULTANT: Desiree Melo CRNA Emergent airway documentation: Risks [...] abs 6.85(H) 1.50 - 6.50 K/cumm MARJORIE Comment:[address] [address] Imm gran abs 0.11(H) 0.00 - 0.10 K/cumm MARJORIE Comment:[address] [address] Lymphocyte abs 0.79(L) 0.80 - 3.30 K/cumm MARJORIE Comment:[address] [address] Monocyte abs 0.91(H) 0.20 - 0.80 K/cumm MARJORIE Comment:[address] [address] Eosinophil abs 0.12 0.00 - 0.50 K/cumm MARJORIE Comment:[address] [address] Basophil abs 0.06 0.00 - 0.10 K/cumm MARJORIE Comment:[address] [address] Neutrophil pct 77.5 % [facility] Comment: Interpretive Data Percent cell count reference ranges are not reported, since discordance with absolute values may lead to misinterpretation of CBC data. Current Interpretive Data was last revised on 2017. [address] [address] Imm gran pct 1.2 % MARJORIE Comment: Interpretive Data Percent cell count reference ranges are not reported, since discordance with absolute values may lead to misinterpretation of CBC data. Current Interpretive Data was last revised on 2017. [address] [address] Lymphocyte pct 8.9 % MARJORIE Comment: Interpretive Data Percent cell count reference ranges are not reported, since discordance with absolute values may lead to misinterpretation of CBC data. Current Interpretive Data was last revised on 2017. [address] [address] Monocyte pct 10.3 % MARJORIE Comment: Interpretive Data Percent cell count reference ranges are not reported, since discordance with absolute values may lead to misinterpretation of CBC data. Current Interpretive Data was last revised on 2017. [address] [address] Eosinophil pct 1.4 % MARJORIE Comment: Interpretive Data Percent cell count reference ranges are not reported, since discordance with absolute values may lead to misinterpretation of CBC data. Current Interpretive Data was last revised on 2017. [address] [address] Basophil pct 0.7 % MARJORIE Comment: Interpretive Data Percent cell count reference ranges are not reported, since discordance with absolute values may lead to misinterpretation of CBC data. Current Interpretive Data was last revised on 2017. [address] [address] Blood 10/21/2024 6:37 AM CDT 10/21/2024 7:26 AM CDT us Elva Hodge NP LAB BLOOD ORDERABLES Final Result MARJORIE SUTHERLAND [address] [place] [address] Department [place] [address] * (ABNORMAL) CBC with auto differential (10/21/2024 6:37 AM CDT) WBC 8.84 3.80 - 9.90 K/cumm MARJORIE SUTHERLAND Comment:[address], [address] Hgb 11.6(L) 11.9 - 15.5 g/dL [facility] Comment:[address], [address] Hct 36.0 35.6 - 45.5 % [facility] Comment:[address], [address] Plt 269 150 - 400 K/cumm [facility] Comment:[address], [address] MPV 9.2 9.1 - 12.3 fL [facility] Comment:[address], [address] RBC 3.61(L) 3.90 - 5.20 M/cumm [facility] Comment:[address], [address] MCV 99.7(H) 81.3 - 96.4 fL [facility] Comment:[address], [address] MCH 32.1 27.1 - 33.3 pg [facility] Comment:[address], [address] MCHC 32.2(L) 32.3 - 35.7 g/dL [facility] Comment:[address], [address] RDW CV 12.4 11.1 - 14.9 % [facility] Comment:[address], [address] RDW SD 45.1 35.7 - 48.1 fL [facility] Comment:[address], [address] NRBC abs 0.00 0.00 - 0.01 K/cumm [facility] Comment:[address], [address] Blood 10/21/2024 6:37 AM CDT 10/21/2024 7:26 AM CDT us Elva Hodge [employer]ITY [employer] WORKER LAB BLOOD ORDERABLES Final Result MARJORIE [address] Department [place] [address] * eGFR (10/21/2024 6:31 AM CDT) eGFR [...] Current interpretive data was last reviewed 2021. [address] [address] Blood 10/21/2024 6:31 AM CDT 10/21/2024 7:26 AM CDT Elva Hodge NP LAB BLOOD ORDERABLES Final Result MARJORIE [address] Department [place] [address] * (ABNORMAL) Comprehensive metabolic panel (10/21/2024 6:31 AM CDT) Sodium 136 135 - 145 mmol/L MARJORIE Comment:[address] [address] Potassium, pl 3.8 3.3 - 4.9 mmol/L MARJORIE SUTHERLAND Comment:[address] [address] Chloride 100 97 - 110 mmol/L MARJORIE SUTHERLAND Comment:[address] [place] [address] CO2 26 22 - 32 mmol/L [facility] Comment:[address] [address] Anion gap 10 2 - 15 mmol/L [facility] Comment:[address] [address] BUN 9 6 - 25 mg/dL [facility] Comment:[address] [address] Creatinine 0.67 0.60 - 1.10 mg/dL [facility] Comment:[address] [address] Glucose 92 70 - 199 mg/dL [facility] Comment: Interpretive Data Fasting glucose >/= 126 [...] Current interpretive data was last revised 2022. [facility], [address] [place]., [address] Calcium 9.2 8.5 - 10.3 mg/dL [facility] Comment:[address] [address] Bilirubin, total 0.3 0.1 - 1.2 mg/dL [facility] Comment:[address] [address] Protein, pl 6.5 6.5 - 8.5 g/dL [facility] Comment:[address] [address] Albumin 3.3(L) 3.5 - 5.0 g/dL [facility] Comment:[address] [address] Alk phos 144(H) 40 - 130 Units/L MARJORIE Comment:[address] [address] ALT 20 7 - 45 Units/L [facility] Comment:[address] [address] AST 32 10 - 45 Units/L [facility] Comment:[facility], [address] [place] [address]., [address] Blood 10/21/2024 6:31 AM CDT 10/21/2024 7:26 AM CDT Elva Hodge COMMUNITY [employer] WORKER LAB BLOOD ORDERABLES Final Result Performing Organization Address City/[facility]/ZIP Co de Phone Number [facility] [address] [facility] Department [place] [employer] [address] * (ABNORMAL) Hepatitis panel, acute (07/18/2022 6:04 AM BILLING ASSISTANT) Hep A IgM Nonreactive Nonreactive [facility] Comment: Interpretive Data: If Hep A IgM Ab is reported as Equivocal, a new sample should be drawn in two weeks for testing. Current interpretive data was last revised on 19. Hep B core IgM Nonreactive Nonreactive [facility] Comment: Interpretive Data If HepB Core IgM Ab is reported as Equivocal, a new sample should be drawn in two weeks for testing. Current interpretive data was last revised on 19. Hep C Ab Reactive(A) Nonreactive [facility] Comment: Interpretive Data Nonreactive: Antibodies to HCV [...] last revised on 2019. HepBsAg Nonreactive Nonreactive [facility] Blood 07/18/2022 6:04 AM BILLING ASSISTANT 07/18/2022 6:34 AM BILLING ASSISTANT Angi Castillo DO LAB MICROBIOLOGY - GENERAL OR DERABLES Final Result [facility] [address] [facility] Department [place] [address] * Screening Mammogram Bilateral [place] (04/29/2018 10:09 AM BILLING ASSISTANT) Anatomical Region Laterality Modality Breast Bilateral Mammography 04/29/2018 10:0 9 AM BILLING ASSISTANT Impressions 05/06/2018 4:06 PM BILLING ASSISTANT BI-RAD 2 BENIGN There is no mammographic evidence of malignancy. A 1 year screening mammogram is recommended. The patient has been or will be contacted. The patient will be entered into a reminder system with a target due date of 1 year for her next screening exam. Electronically signed by: Dr. Gregory Horner M.D. nh/penrad:05/06/2018 16:05:36 Applications Manager: Shoshana HARRINGTON)(Melissa), [facility] letter sent: Normal Exam Reading location: [facility] BI-RADS: 2 Benign [EOD] Narrative 05/06/2018 4:06 PM BILLING ASSISTANT - MG BILATERAL DIGITAL SCREENING MAMMOGRAM 3D/2D [...] Electronically signed by: Dr. Gregory Horner M.D. pr/penrad:05/06/2018 16:05:36 Applications Manager: Shoshana HARRINGTON)(Melissa), [facility] letter sent: Normal Exam Reading location: [facility] BI-RADS: 2 Benign [EOD] Parker Jean MD IMG MAMMO PROCEDURES Final Res ult from Last 3 Months or Most Recently Relevant to Health [place] [address] MEDICARE [facility] MEDICARE [facility] Advance Directives For more information, please contact: [phone] Documents on File Type Date Recorded Patient Handle Machine Operator Expl anation ADVANCE DIRECTIVE 10/13/2024 10:26 AM POLST - Phys Order for PT Preferences Power of Lace Mender 10/07/2024 5:19 AM * Full Code (Latest Code Status on File) Date Activated Date Inactivated Comments 12/02/2024 5:06 PM 12/08/2024 8:58 PM * Full Code Date Activated Date Inactivated Comments 11/05/2024 12:00 AM 11/08/2024 8:17 PM * LIMITED - No CPR Date Activated Date Inactivated Comments 10/24/2024 6:40 [...] Comments 10/07/2024 11:17 AM 10/11/2024 3:53 PM Care Teams Taper/Finisher Relationship Specialty Start Date End Date Harry Jorgensen MD PCP - General 09/06/16 Vitaliy Alcazar MD [address] [facility] [address] [place] [address] PCP - Home Infusion Attending Infectious Diseases 11/10/24 Michael Quiros MD [address] [place] [address] Referring Physician Interventional Cardiology 09/17/24 Mohan Rico MD [address] [facility] [address] [place] [address] Consulting Physician Pulmonary Disease 09/17/24 Betty Calvin PA [address] [facility] [address] [place] [address] Physician Rehab Physician Orthopedic Surgery 10/08/24 Carol Sainz, RN Registered Nurse 12/02/24
--- OUTSIDE RECORDS SUMMARY | 2025-01-21 15:46 | XMS_ITS | Encounter Summary ---
Author Organization [facility] Healthcare Address [address] [place] [address] Care Team Providers Care Qa Engineer Name Role Phone Harry Jorgensen MD Primary Care Provider + Michael Quiros MD Unavailable [phone] Mohan Rico MD Unavailable [phone] Betty Calvin Unavailable [phone] Vitaliy Alcazar MD Unavailable [phone] Carol Sainz RN Unavailable Unavailable Encounter Details Date Type Department Care Team (Late st Contact Info) Description 01/03/2025 Telephone [facility] Medical Group Pulmonology [address] [facility] [address] [place] [address] Alexandrea Yarbrough, EKATERINA Social History Tobacco Use Types Packs/Day Years Used Date Smoking Tobacco: Never Smokeless Tobacco: Never Alcohol Use Standard Drinks/Week Comments No 0 (1 standard drink = 0.6 oz pur e alcohol) [facility] Utilities Answer Date Recorded In the past [...] week 12/03/2024 How often do you attend chur ch or confucianism services? More than 4 times per year 12/03/2024 Do you belong to any clubs o r organizations such as religion groups, unions, fraternal or athletic groups, or [...] place to sleep or slept in a long term (including now)? No 04/03/2023 PHQ-9 Answer Date [...] any time in the past 12 m [facility], were you homeless or living in a long term (including now)? No 12/03/2024 Personal Safety Answer Date Recorded Have you ever been in or are you currently in a harmful physical or emotional relationship or is someone making you feel afraid or unsafe? Denies 12/02/2024 Comments No Sex and Gender Information Value Date Recorded Sex Assigned at Not on file Legal Sex Female 10:24 AM STATEMENT DISTRIBUTION CLERK Gender Identity Female 01/15/2021 9:27 PM CDT Sexual Orientation Straight 01/15/2021 9: 27 PM CDT documented as of this encounter Miscellaneous Notes * Telephone Encounter - Alexandrea Yarbrough RN - 01/03/2025 2:45 PM CDT Pt called stating she saw Dr Quiros today and was informed she should not be taking Cipro with Sotalol. Pt stated Dr Quiros spoke with Dr Alcazar while she was in the office and instructed pt to contact office when she got home. Would you like to change the abx? documented in this encounter Plan of Treatment Upcoming Encounters Date Type Department Care Team (Latest Contact Info) Description 01/27/2025 7:30 AM CDT Hospital Encounter [facility] Operating Room [address] [place] [address] [place] [address] [facility] [address] [place] [address] 01/27/2025 7:30 AM CDT - 01/27/2025 9:00 AM CDT Surgery [facility] Operating Room [address] [place] [address] [place] [address] [facility] [address], [place] [address] DEBRIDEMENT LEFT KNEE WOUND WITH WOUND VAC PLACEMENT Scheduled Procedures Name Priority Associated Diagnoses Date/Ti me DEBRIDEMENT WOUND Open wound of left knee, initial encounter Other complications of procedures, not elsewhere classified, initial encounter 01/27/2025 7:30 AM CDT documented as of this encounter Visit Diagnoses Not on filedocumented in this encounter Care Teams Qa Engineer Relationship Specialty Start Date End Date Harry Jorgensen MD PCP - General 09/06/16 Vitaliy Alcazar MD [address] [facility] [address] [place] [address] PCP - Home Infusion Attending Infectious Diseases 11/10/24 Michael Quiros MD [address] [place] [address] Referring Physician Interventional Cardiology 09/17/24 Mohan Rico MD [address] [facility] [address] [place] [address] Consulting Physician Pulmonary Disease 09/17/24 Betty Calvin PA [address] [facility] [address] [place] [address] Physician Bag Presser Orthopedic Surgery 10/08/24 Carol Sainz, RN Registered Nurse 12/02/24 documented as of this encounter
--- OUTSIDE RECORDS SUMMARY | 2025-01-21 15:46 | XMS_ITS | Encounter Summary ---
Author Organization [facility] Facility Care Team Providers Care Mark Up Designer Name Role Phone Harry Jorgensen MD Primary Care Provider + Truman Moody MD Unavailable [phone] Michael Quiros MD Unavailable [phone] Mohan Rico MD Unavailable [phone] Betty Calvin Unavailable [phone] Sybil Alex [facility] Unavailable Unavailable Vitaliy Alcazar MD Unavailable [phone] Rivka Coello [facility] Unavailable Unavailable Carol Sainz RN Unavailable Unavailable Sybil Alex [facility] Unavailable Unavailable Encounter Details Date Type Department Care Team (Latest Contact Info) Description 02/04/2018 Orders Only [facility] CLINCONV ProviderKrzysztof MD [address] [place] [address] Social History Tobacco Use Types Packs/Day Years Used Date Smoking Tobacco: Never Alcohol Use Standard Drinks/Week Comments No 0 (1 standard drink = 0.6 oz pur e alcohol) Comments Unknown Sex and Gender Information Value Date Recorded Sex Assigned at Not on file Legal Sex Female 10:24 AM NECK BAND OPERATOR Gender Identity Female 01/15/2021 9:27 PM CDT Sexual Orientation Straight 01/15/2021 9: 27 PM CDT documented as of this encounter Plan of Treatment Upcoming Encounters Date Type Department Care Team (Latest Contact Info) Description 01/27/2025 7:30 AM CDT Hospital Encounter [facility] Operating Room [address] [place] [address] [place] [address] [facility] [address], [place] [id number] 01/27/2025 7:30 AM CDT - 01/27/2025 9:00 AM CDT Surgery [facility] Operating Room [address] [place] [address] [place] [address] [facility] [address], [place] [id number] DEBRIDEMENT LEFT KNEE WOUND WITH WOUND VAC [...] documented as of this encounter Care Teams Mark Up Designer Relationship Specialty Start Date End Date Harry Jorgensen MD PCP - General 09/06/16 Vitaliy Alcazar MD [address] [facility] [address] [place] [place] [address] PCP - Home Infusion Attending Infectious Diseases 11/10/24 Truman Moody MD Termite Treater Cardiology 02/01/19 09/16/24 Michael Quiros MD [address] [place] [address] Referring Physician Interventional Cardiology 09/17/24 Mohan Rico MD [address] [facility] [address] [place] [address] [place] [address] Consulting Physician Pulmonary Disease 09/17/24 Betty Calvin PA [address] [facility] [address] [place] [place] [address] Physician Home Health Care Respiratory Therapist Orthopedic Surgery 10/08/24 Sybil Alex, [facility] Pharmacist Pharmacy 10/29/24 11/15/24 Rivka Coello, [facility] Pharmacist Pharmacy 11/15/24 11/23/24 Carol Sainz, EKATERINA Registered Nurse 12/02/24 Sybil Alex, [facility] Pharmacist Pharmacy 12/08/24 12/24/24 documented as of this encounter
--- OUTSIDE RECORDS SUMMARY | 2025-01-21 15:46 | XMS_ITS | Encounter Summary ---
Author Organization [facility] Facility Care Team Providers Care Cake Winder Name Role Phone Harry Jorgensen MD Primary Care Provider + Truman Moody MD Unavailable [phone] Michael Quiros MD Unavailable [phone] Mohan Rico MD Unavailable [phone] Betty Calvin Unavailable [phone] Sybil Alex [facility] Unavailable Unavailable Vitaliy Alcazar MD Unavailable [phone] Rivka Coello [facility] Unavailable Unavailable Carol Sainz RN Unavailable Unavailable Sybil Alex [facility] Unavailable Unavailable Encounter Details Date Type Department Care Team (Latest Contact Info) Description 05/07/2018 Orders Only [facility] CLINCONV ProviderKrzysztof MD [address] [place] [address] Social History Tobacco Use Types Packs/Day Years Used Date Smoking Tobacco: Never Alcohol Use Standard Drinks/Week Comments No 0 (1 standard drink = 0.6 oz pur e alcohol) Comments Unknown Sex and Gender Information Value Date Recorded Sex Assigned at Not on file Legal Sex Female 10:24 AM 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 [address], [place] [id number] 01/27/2025 7:30 AM CDT - 01/27/2025 9:00 AM CDT Surgery [facility] Operating Room [address] [place] [address] [place] [address] [facility] [address] [id number] DEBRIDEMENT LEFT KNEE WOUND WITH WOUND VAC PLACEMENT Scheduled Procedures Name Priority Associated Diagnoses Date/Ti me DEBRIDEMENT WOUND Open wound of left knee, initial encounter Other complications of procedures, not elsewhere classified, initial encounter 01/27/2025 7:30 AM CDT documented as of this encounter Procedures Procedure Name Priority Date/Time Associated Diagnosis Comments PROCEDURE - RESULT 05/08/2018 12 :00 AM SENIOR PLANNER documented in this encounter Results * PROCEDURE - RESULT (05/08/2018 12:00 AM SENIOR PLANNER) Narrative 05/08/2018 12:00 AM SENIOR PLANNER Ordered by an unspecified provider. us [...] documented as of this encounter Care Teams Cake Winder Relationship Specialty Start Date End Date Harry Jorgensen MD PCP - General 09/06/16 Vitaliy Alcazar MD [address] [facility] [address] [place] [address] PCP - Home Infusion Attending Infectious Diseases 11/10/24 Truman Moody MD Slide Attendant Cardiology 02/01/19 09/16/24 Michael Quiros MD [address] [place] [address] Referring Physician Interventional Cardiology 09/17/24 Mohan Rico MD [address] [facility] [address] [place] [address] Consulting Physician Pulmonary Disease 09/17/24 Betty Calvin, PA [address] [facility] [address] [place] [address] Physician Recruiter Coordinator Orthopedic Surgery 10/08/24 Sybil Alex, [facility] Pharmacist Pharmacy 10/29/24 11/15/24 Rivka Coello, [facility] Pharmacist Pharmacy 11/15/24 11/23/24 Carol Sainz, RN Registered Nurse 12/02/24 Sybil Alex, [facility] Pharmacist Pharmacy 12/08/24 12/24/24 documented as of this encounter
--- OUTSIDE RECORDS SUMMARY | 2025-01-21 15:46 | XMS_ITS | Encounter Summary ---
Author Organization [facility] Facility Care Team Providers Care Fur Blowing Machine Operator Name Role Phone Harry Jorgensen MD Primary Care Provider + Truman Moody MD Unavailable [phone] Michael Quiros MD Unavailable [phone] Mohan Rico MD Unavailable [phone] Betty Calvin Unavailable [phone] Sybil Alex [facility] Unavailable Unavailable Vitaliy Alcazar MD Unavailable [phone] Rivka Coello [facility] Unavailable Unavailable Carol Sainz RN Unavailable Unavailable Sybil Alex [facility] Unavailable Unavailable Encounter Details Date Type Department Care Team (Latest Contact Info) Description 02/27/2018 Orders Only [facility] CLINCONV ProviderKrzysztof MD [address] [place] [address] Social History Tobacco Use Types Packs/Day Years Used Date Smoking Tobacco: Never Alcohol Use Standard Drinks/Week Comments No 0 (1 standard drink = 0.6 oz pur e alcohol) Comments Unknown Sex and Gender Information Value Date Recorded Sex Assigned at Not on file 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 Gender Identity Female 01/15/2021 9:27 PM CDT Sexual Orientation Straight 01/15/2021 9: 27 PM CDT documented as of this encounter Plan of Treatment Upcoming Encounters Date Type Department Care Team (Latest Contact Info) Description 01/27/2025 7:30 AM CDT Hospital Encounter [facility] Operating Room [address] [place] [address] [place] [address] [facility] [address], [place] [id number] 01/27/2025 7:30 AM CDT - 01/27/2025 9:00 AM CDT Surgery [facility] Operating Room [address] [place] [address] [place] [address] [facility][1] [address], [place] [id number] DEBRIDEMENT LEFT KNEE WOUND WITH WOUND VAC [...] documented as of this encounter Care Teams Fur Blowing Machine Operator Relationship Specialty Start Date End Date Harry Jorgensen MD PCP - General 09/06/16 Vitaliy Alcazar MD [address] [facility] [address] [place] [address] PCP - Home Infusion Attending Infectious Diseases 11/10/24 Truman Moody MD Painter Ski Edge Cardiology 02/01/19 09/16/24 Michael Quiros MD [address] [place] [address] Referring Physician Interventional Cardiology 09/17/24 Mohan Rico MD [address] [facility] [address] [place] [place] [address] Consulting Physician Pulmonary Disease 09/17/24 Betty Calvin PA [address] [facility] [address] [place] [address] Physician Construction Helper Orthopedic Surgery 10/08/24 Sybil Alex, [facility] Pharmacist Pharmacy 10/29/24 11/15/24 Rivka Coello [facility] Pharmacist Pharmacy 11/15/24 11/23/24 Carol Sainz, RN Registered Nurse 12/02/24 Sybil Alex, [facility] Pharmacist Pharmacy 12/08/24 12/24/24 documented as of this encounter
--- OUTSIDE RECORDS SUMMARY | 2025-01-21 15:46 | XMS_ITS | Encounter Summary ---
Author Organization [facility] Facility Care Team Providers Care Ict Security Specialist Name Role Phone Harry Jorgensen MD Primary Care Provider + Truman Moody MD Unavailable [phone] Michael Quiros MD Unavailable [phone] Mohan Rico MD Unavailable [phone] Betty Calvin Unavailable [phone] [facility] Unavailable Unavailable Vitaliy Alcazar MD Unavailable [phone] Rivka Co[address] [facility] Unavailable Unavailable Carol Sainz RN Unavailable Unavailable Sybil Alex 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 Gender Identity Female 01/15/2021 9:27 PM CDT Sexual Orientation Straight 01/15/2021 9: 27 PM CDT documented as of this encounter Plan of Treatment Upcoming Encounters Date Type Department Care Team (Latest Contact Info) Description 01/27/2025 7:30 AM CDT Hospital Encounter [facility] Operating Room [address] [place] [address] [place] [address] [facility] [address], [place] [id number] 01/27/2025 7:30 AM CDT - 01/27/2025 9:00 AM CDT Surgery [facility] Operating Room [address] [place] [address] [place] [address] [facility] [address], [place] [id number] DEBRIDEMENT LEFT KNEE WOUND WITH WOUND VAC [...] documented as of this encounter Care Teams Ict Security Specialist Relationship Specialty Start Date End Date Harry Jorgensen MD PCP - General 09/06/16 Vitaliy Alcazar MD [address] [facility] [address] [address] [place] [address] PCP - Home Infusion Attending Infectious Diseases 11/10/24 Truman Moody MD Bottom Ironer Cardiology 02/01/19 09/16/24 Michael Quiros MD [address] [place] [address] Referring Physician Interventional Cardiology 09/17/24 Mohan Rico MD [address] [facility] [address] [address] [place] [address] Consulting Physician Pulmonary Disease 09/17/24 Betty Calvin PA [address] [facility] [address] [place] [address] Physician Central Office Frame Wirer Orthopedic Surgery 10/08/24 Sybil Alex, [facility] Pharmacist Pharmacy 10/29/24 11/15/[address] [facility] Pharmacist Pharmacy 11/15/24 11/23/24 Carol Sainz, RN Registered Nurse 12/02/24 Sybil Alex, [facility] Pharmacist Pharmacy 12/08/24 12/24/24 documented as of this encounter
--- OUTSIDE RECORDS SUMMARY | 2025-01-21 15:46 | XMS_ITS | Encounter Summary ---
Author Organization [facility] Facility Care Team Providers Care Radio Frequency Design Engineer Name Role Phone Harry Jorgensen MD Primary Care Provider + Truman Moody MD Unavailable [phone] Michael Quiros MD Unavailable [phone] Mohan Rico MD Unavailable [phone] Betty Calvin Unavailable [phone] Sybil Alex [facility] Unavailable Unavailable Vitaliy Alcazar MD Unavailable [phone] Rivka Coello [facility] Unavailable Unavailable Carol Sainz RN Unavailable Unavailable Sybil Alex 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 Gender Identity Female 01/15/2021 9:27 PM CDT Sexual Orientation Straight 01/15/2021 9: 27 PM CDT documented as of this encounter Plan of Treatment Upcoming Encounters Date Type Department Care Team (Latest Contact Info) Description 01/27/2025 7:30 AM CDT Hospital Encounter [facility] Operating Room [address] [place] [address] [place] [address] [facility] [address], [place] [id number] 01/27/2025 7:30 AM CDT - 01/27/2025 9:00 AM CDT Surgery [facility] Operating Room [address] [place] [address] [place] [address] [facility] [address], [place] [id number] DEBRIDEMENT LEFT KNEE WOUND WITH WOUND VAC [...] documented as of this encounter Care Teams Radio Frequency Design Engineer Relationship Specialty Start Date End Date Harry Jorgensen MD PCP - General 09/06/16 Vitaliy Alcazar MD [address] [facility] [address] [place] [address] PCP - Home Infusion Attending Infectious Diseases 11/10/24 Truman Moody MD Gum Scoring Machine Operator Cardiology 02/01/19 09/16/24 Michael Quiros MD [address] [place] [address] Referring Physician Interventional Cardiology 09/17/24 Mohan Rico MD [address] [facility] [address] [place] [address] Consulting Physician Pulmonary Disease 09/17/24 Betty Calvin PA [address] [facility] [address] [place] [address] Physician Buffer Inflated Pad Orthopedic Surgery 10/08/24 Sybil Alex, [facility] Pharmacist Pharmacy 10/29/24 11/15/24 Rivka Coello [facility] Pharmacist Pharmacy 11/15/24 11/23/24 Carol Sainz, RN Registered Nurse 12/02/24 Sybil Alex, [facility] Pharmacist Pharmacy 12/08/24 12/24/24 documented as of this encounter
--- OUTSIDE RECORDS SUMMARY | 2025-01-21 15:46 | XMS_ITS | Clinical Summary ---
Author Organization Unknown Care Team Providers Care Political Researcher Name Role Phone LUIS MCMULLEN, TOM Unavailable Unavailable VELASQUEZ JAY, KATHY Unavailable Unavailable FOSTER RN, SUMMER Unavailable Unavailable FLORENCE RN, LIVAN Unavailable Unavailable NICOLA TOBAR, KENAN Unavailable Unavailabl e Payers Payer Name Policy Type Policy Number Effective Date Expira tion Date MEDICARE - [place] - PDGM [id number] Problems Condition Name Condition Details Condition Category [...] OF SKIN Active 06-09 00:00: 00 OTHER [facility] (CURRENT) DRUG THERAPY Active 06-09 00:00: 00 [facility] (CURRENT) USE OF ANTICOAGULAN TS Active 06-09 [...] 10-30 00:00: 00 11-24 00:00 :00 No [id number] 1 capsule 4 TIMES DAILY 1 capsule 4 TIMES DAILY (route: oral) Med Classific ation: Anti-Infe ctive Agents ascorbic acid (vitamin C) 1,000 mg capsule 10-30 00:00: 00 11-24 00:00 :00 No [id number] 1 capsule 2 TIMES DAILY 1 capsule 2 TIMES DAILY (route: oral) Med Classific ation: Electroly te Balance-N utritiona l Products biotin 5,000 mcg sublingual tablet 10-30 00:00: 00 11-24 00:00 :00 No [id number] 1 tablet DAILY 1 tablet DAILY (route: sublingual ) Med Classific ation: Electroly te Balance-N utritiona l Products Brainstrong Memory Support 120 mg-110 mg tablet 10-30 00:00: 00 11-24 00:00 :00 No [id number] 1 tablet DAILY 1 tablet DAILY (route: oral) Med Classific ation: Alternati ve Therapy calcium 333 mg (carbonate) -magnesium 133 mg (oxide)-zin c 5 mg tablet 10-30 00:00: 00 11-24 00:00 :00 No [id number] 1 tablet DAILY 1 tablet DAILY (route: oral) Med Classific ation: Electroly te Balance-N utritiona l Products calcium 500 mg (as calcium carbonate 1,250 mg) tablet 10-30 00:00: 00 11-24 00:00 :00 No [id number] 1 tablet DAILY 1 tablet DAILY (route: oral) Med Classific ation: Electroly Endosee Balance-N [employer] Products Co Q-10 300 mg capsule 10-30 00:00: 00 11-24 00:00 :00 No [id number] 1 capsule DAILY 1 capsule DAILY (route: oral) Med Classific ation: Alternati ve Therapy cranberry 500 mg capsule 10-30 00:00: 00 11-24 00:00 :00 No [id number] 1 capsule DAILY 1 capsule DAILY (route: oral) Med Classific ation: Alternati ve Therapy Dialyvite Vitamin D 125 mcg (5,000 unit) capsule 10-30 00:00: 00 11-24 00:00 :00 No [id number] 1 capsule 2 TIMES DAILY 1 capsule 2 TIMES DAILY (route: oral) Med Classific ation: Electroly te Balance-N utritiona l Products furosemide 40 mg tablet 10-30 00:00: 00 11-24 00:00 :00 No [id number] 1 tablet DAILY 1 tablet DAILY (route: oral) Med Classific ation: Cardiovas cular Therapy Agents Heparin Lock Flush (Porcine) (PF) 10 unit/mL intravenous syringe 10-30 00:00: 00 11-24 00:00 :00 No [id number] 5 mL DIRECTED 5 mL DIRECTED (route: intravenou s) Med Classific ation: Hematolog ical Agents Lactobacill us acidophilus 1 billion cell tablet 10-30 00:00: 00 11-24 00:00 :00 No [id number] 1 tablet DAILY 1 tablet DAILY (route: oral) Med Classific ation: Gastroint estinal Therapy Agents levothyroxi ne 150 mcg tablet 10-30 00:00: 00 11-24 00:00 :00 No [id number] 1 tablet DAILY 1 tablet DAILY (route: oral) Med Classific ation: Endocrine loperamide 2 mg tablet 10-30 00:00: 00 11-24 00:00 :00 No [id number] 1 tablet 4 TIMES DAILY 1 tablet 4 TIMES DAILY (route: oral) Med Classific ation: Gastroint estinal Therapy Agents magnesium 250 mg tablet 10-30 00:00: 00 11-24 00:00 :00 No [id number] 1 tablet DAILY 1 tablet DAILY (route: oral) Med Classific ation: Electroly te Balance-N utritiona l Products nitroglycer in 0.4 mg sublingual tablet 10-30 00:00: 00 11-24 00:00 :00 No [id number] 1 tablet DIRECTED 1 tablet DIRECTED (route: sublingual ) Med Classific ation: Cardiovas cular Therapy Agents Normal Saline Flush 0.9 % injection syringe 10-30 00:00: 00 11-24 00:00 :00 No [id number] 10-20 mL DIRECTED 10-20 mL DIRECTED (route: injection) Med Classific ation: Electroly te Balance-N utritiona l Products potassium chloride ER 10 mEq capsule,ext ended release 10-30 00:00: 00 11-24 00:00 :00 No [id number] 1 capsule DAILY 1 capsule DAILY (route: oral) Med Classific ation: Electroly te Balance-N utritiona l Products red yeast rice 600 mg capsule 10-30 00:00: 00 11-24 00:00 :00 No [id number] 1 capsule DAILY 1 capsule DAILY (route: oral) Med Classific ation: Alternati ve Therapy rosuvastati n 5 mg tablet 10-30 00:00: 00 11-24 00:00 :00 No [id number] 1 tablet DAILY 1 tablet DAILY (route: oral) Med Classific ation: Cardiovas cular Therapy Agents sotalol 160 mg tablet 10-30 00:00: 00 11-24 00:00 :00 No [id number] 1 tablet 2 TIMES DAILY 1 tablet 2 TIMES DAILY (route: oral) Med Classific ation: Cardiovas cular Therapy Agents tramadol 50 mg tablet 10-30 00:00: 00 11-24 00:00 :00 No [id number] 1 tablet EVERY 6 HOURS 1 tablet EVERY 6 HOURS (route: oral) Med Classific ation: Analgesic , Anti-infl ammatory or Antipyret ic turmeric root extract 500 mg tablet 10-30 00:00: 00 11-24 00:00 :00 No [id number] 1 tablet DAILY 1 tablet DAILY (route: oral) Med Classific ation: Alternati ve Therapy Tylenol Extra Strength 500 mg tablet 10-30 00:00: 00 11-24 00:00 :00 No [id number] 1 tablet 2 TIMES DAILY 1 tablet 2 TIMES DAILY (route: oral) Med Classific ation: Analgesic , Anti-infl ammatory or Antipyret ic verapamil 120 mg tablet 10-30 00:00: 00 11-24 00:00 :00 No [id number] 1 tablet DAILY 1 tablet DAILY (route: oral) Med Classific ation: Cardiovas cular Therapy Agents verapamil ER (SR) 240 mg tablet,exte nded release 10-30 00:00: 00 11-24 00:00 :00 No [id number] 1 tablet DAILY 1 tablet DAILY (route: oral) Med Classific ation: Cardiovas cular Therapy Agents Vitamin C 100 mg tablet 10-30 00:00: 00 11-24 00:00 :00 No [id number] 1 tablet DAILY 1 tablet DAILY (route: oral) Med Classific ation: Electroly te Balance-N utritiona l Products Xarelto 20 mg tablet 11-12 00:00: 00 11-24 00:00 :00 No [id number] 1 tablet EVERY PM 1 tablet EVERY PM (route: oral) Med Classific ation: Hematolog ical Agents Betapace AF 160 mg tablet 11-24 00:00: 00 Yes [id number] 1 tablet 2 TIMES DAILY 1 tablet 2 TIMES DAILY (route: oral) Med Classific ation: Cardiovas cular Therapy Agents Blink Tears 0.25 % eye drops 11-24 00:00: 00 Yes [id number] 1 drops 2 TIMES DAILY 1 drops 2 TIMES DAILY (route: ophthalmic (eye)) Med Classific ation: Ophthalmi c Agents Calcium 500 + D 500 mg-10 mcg (400 unit) tablet 11-24 00:00: 00 Yes [id number] 1 mg 2 TIMES DAILY 1 mg 2 TIMES DAILY (route: oral) Med Classific ation: Electroly te Balance-N utritiona l Products Co Q-10 300 mg capsule 11-24 00:00: 00 Yes [id number] 1 capsule DAILY 1 capsule DAILY (route: oral) Med Classific ation: Alternati ve Therapy Crestor 5 mg tablet 11-24 00:00: 00 Yes [id number] 1 tablet DAILY 1 tablet DAILY (route: oral) Med Classific ation: Cardiovas cular Therapy Agents doxycycline hyclate 100 mg capsule 11-24 00:00: 12-08 23:59 :00 No [id number] 1 capsule 2 TIMES DAILY 1 capsule 2 TIMES DAILY (route: oral) Med Classific ation: Anti-Infe ctive Agents Flonase Allergy Relief 50 mcg/actuati on nasal spray,suspe nsion 11-24 00:00: 00 Yes [id number] 1 spray DAILY 1 spray DAILY (route: nasal) Med Classific ation: Respirato ry Therapy Agents Klor-Con 10 mEq tablet,exte nded release 11-24 00:00: 00 Yes [id number] 1 tablet DAILY 1 tablet DAILY (route: oral) Med Classific ation: Electroly te Balance-N utritiona l Products Lactobacill us acidophilus 500 million cell capsule 11-24 00:00: 00 Yes [id number] 1 capsule DAILY 1 capsule DAILY (route: oral) Med Classific ation: Gastroint estinal Therapy Agents Lasix 40 mg tablet 11-24 00:00: 00 Yes [id number] 1 tablet DAILY 1 tablet DAILY (route: oral) Med Classific ation: Cardiovas cular Therapy Agents levothyroxi ne 150 mcg capsule 11-24 00:00: 00 Yes [id number] 1 capsule DAILY 1 capsule DAILY (route: oral) Med Classific ation: Endocrine loperamide 2 mg capsule 11-24 00:00: 00 Yes [id number] 1 capsule 4 TIMES DAILY 1 capsule 4 TIMES DAILY (route: oral) Med Classific ation: Gastroint estinal Therapy Agents Nitrostat 0.4 mg sublingual tablet 11-24 00:00: 00 Yes [id number] 1 tablet NEEDED 1 tablet NEEDED (route: sublingual ) Med Classific ation: Cardiovas cular Therapy Agents tramadol 50 mg tablet 11-24 00:00: 00 Yes [id number] 1 tablet EVERY 8 HOURS 1 tablet EVERY 8 HOURS (route: oral) Med Classific ation: Analgesic , Anti-infl ammatory or Antipyret ic Tylenol 325 mg tablet 11-24 00:00: 00 Yes [id number] 2 tablet EVERY 6 HOURS 2 tablet EVERY 6 HOURS (route: oral) Med Classific ation: Analgesic , Anti-infl ammatory or Antipyret ic verapamil ER (SR) 120 mg tablet,exte nded release 11-24 00:00: 00 Yes [id number] 1 tablet DAILY 1 tablet DAILY (route: oral) Med Classific ation: Cardiovas cular Therapy Agents verapamil ER (SR) 240 mg tablet,exte nded release 11-24 00:00: 00 Yes [id number] 1 tablet DAILY 1 tablet DAILY (route: oral) Med Classific ation: Cardiovas cular Therapy Agents Vitamin C ER 1,000 mg tablet,exte nded release 11-24 00:00: 00 Yes [id number] 1 tablet 2 TIMES DAILY 1 tablet 2 TIMES DAILY (route: oral) Med Classific ation: Electroly te Balance-N utritiona l Products Vitamin D3 125 mcg (5,000 unit) tablet 11-24 00:00: 00 Yes [id number] 1 tablet 2 TIMES DAILY 1 tablet 2 TIMES DAILY (route: oral) Med Classific ation: Electroly te Balance-N utritiona l Products Xarelto 20 mg tablet 11-24 00:00: 00 Yes [id number] 1 tablet EVERY PM 1 tablet EVERY PM (route: oral) Med Classific ation: Hematolog ical Agents magnesium 400 mg (as magnesium oxide) tablet 11-24 00:00: 00 Yes [id number] 1 tablet DAILY 1 tablet DAILY (route: oral) Med Classific ation: Electroly te Balance-N utritiona l Products trospium 20 mg tablet 11-24 00:00: 00 Yes [id number] 1 tablet 2 TIMES DAILY 1 tablet 2 TIMES DAILY (route: oral) Med Classific ation: Genitouri nary Therapy sodium chloride 0.9 % irrigation solution 11-24 00:00: 00 Yes [id number] Per instruc tions DIRECTED Per instructio ns DIRECTED (route: irrigation ) Med Classific ation: Electroly te Balance-N utritiona l Products Pharmacy Compounded Medication 11-24 00:00: 00 12-02 08:36 :02.5 47 No [id number] Per instruc tions DIRECTED Per instructio ns DIRECTED (route: Per Instructio ns) Med Classific ation: Custom Pharmacy Compounded Medication 12-01 00:00: 00 12-08 23:59 :00 No [id number] Per instruc tions DIRECTED Per instructio ns DIRECTED (route: Per Instructio ns) Med Classific ation: Custom Pharmacy Compounded Medication 12-01 00:00: 00 12-08 23:59 :00 No [id number] Per instruc tions DIRECTED Per instructio ns DIRECTED (route: Per Instructio ns) Med Classific ation: Custom Pharmacy Compounded Medication 12-01 00:00: 00 Yes [id number] Per instruc tions DIRECTED Per instructio ns DIRECTED (route: Per Instructio ns) Med Classific ation: Custom cefepime 2 gram solution for injection 12-09 00:00: 00 12-23 23:59 :00 No [id number] 2 g DAILY 2 g DAILY (route: injection) Med Classific ation: Anti-Infe ctive Agents Heparin Lock Flush (Porcine) (PF) 10 unit/mL intravenous syringe 12-09 00:00: 00 12-23 23:59 :00 No [id number] 5 mL DIRECTED 5 mL DIRECTED (route: intravenou s) Med Classific ation: Hematolog ical Agents Normal Saline Flush 0.9 % injection syringe 12-09 00:00: 00 12-23 23:59 :00 No [id number] 10-20 mL DIRECTED 10-20 mL DIRECTED (route: injection) Med Classific ation: Electroly te Balance-N utritiona l Products ciprofloxac in 250 mg tablet 12-23 00:00: 00 12-29 23:59 :00 No [id number] 2 tablet 2 TIMES DAILY 2 tablet 2 TIMES DAILY (route: oral) Med Classific ation: Anti-Infe ctive Agents Wound Cleanser irrigation spray 12-24 00:00: 00 Yes [id number] Per instruc tions DIRECTED Per instructio ns DIRECTED (route: irrigation ) Med Classific ation: Dermatolo gical doxycycline hyclate 100 mg capsule 01-12 00:00: 00 Yes [id number] 1 capsule 2 TIMES DAILY 1 capsule [...] CENTER: DR. ANDRE GUO: DR. DANYELLE HUTTON YARN TESTER/TREATING PROVIDERS [code = HOME HEALTH AGENCY MAY ACCEPT ORDERS FROM THE FOLLOWING PHYSICIANS: WOUND CENTER: DR. ANDRE GUO: DR. DANYELLE HUTTON YARN TESTER/TREATING PROVIDERS] Future Scheduled Test SKILLED NU RSE [...] MAINTAIN SITUATIONAL AWARENESS AND WILL NOTIFY CLINICAL BAR WELDER AND PHYSICIAN/PROVIDER WITH ANY CHANGE IN CONDITION. [code = SKILLED NURSE TO PERFORM ENVIRONMENTAL SAFETY RISK ASSESSMENT AND FALL RISK ASSESSMENT AND PROVIDE INSTRUCTION TO IMPLEMENT ENVIRONMENTAL SAFETY AND FALL PREVENTION STRATEGIES THROUGHOUT THE CERTIFICATION PERIOD. SKILLED NURSE WILL MAINTAIN SITUATIONAL AWARENESS AND WILL NOTIFY CLINICAL BAR WELDER AND PHYSICIAN/PROVIDER WITH ANY CHANGE IN CONDITION.] [...] CARE WILL BE ESTABLISHED THAT MEETS PATIENT'S LONGTERM NEEDS AND INCLUDES PATIENT GOAL FOR HOME [...] VISITS OR CHANGES IN MEDICATION SINCE LAST LONGTERM VISIT. SHE REMAINS HOMEBOUND DUE TO LIMITED [...] End Date/Time Encounter Type Admission Type Attending [facility] Care Department Encounter ID Discharge Date Discharge Status Discharge Condition Discharge Reason Percent Goals Met 2024-11-24 00:00:00 2025-01-22 00:00:00 Outpatient NEW ADMISSION KENAN PETERSEN [facility] [id number]
--- OUTSIDE RECORDS SUMMARY | 2025-01-21 15:46 | XMS_ITS | Encounter Summary ---
Author Organization [facility] Address [address] [place] [address] Care Team Providers Care Fondant Machine Operator Name Role Phone Harry Jorgensen MD Primary Care Provider + Taqueria Sullivan MD Primary Care Provider Harry Jorgensen MD Primary Care Provider + Harry Jorgensen MD Primary Care Provider + Harry Jorgensen MD Primary Care Provider + Truman Moody MD Unavailable [phone] Michael Quiros MD Unavailable [phone] Mohan Rico MD Unavailable [phone] Betty Calvin Unavailable [phone] [facility] Unavailable Unavailable Vitaliy Alcazar MD Unavailable [phone] Rivka Co[address] [facility] Unavailable Unavailable Carol Sainz RN Unavailable Unavailable Sybil Alex 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 Gender Identity Female 01/15/2021 9:27 PM CDT Sexual Orientation Straight 01/15/2021 9: 27 PM CDT documented as of this encounter Plan of Treatment Upcoming Encounters Date Type Department Care Team (Latest Contact Info) Description 01/27/2025 7:30 AM CDT Hospital Encounter [facility] Operating Room [id number] [place] [id number] [place] [address] [id number] 01/27/2025 7:30 AM CDT - 01/27/2025 9:00 AM CDT Surgery [facility] Operating Room [address] [place] [id number] [place] [address] [id number] DEBRIDEMENT LEFT KNEE WOUND WITH WOUND VAC [...] CARDIOLOGY (01/02/2007) Anatomical Region Laterality Modality Other us Provider Scanning CV CARDIAC SERVICES PROCEDURES Final [...] documented as of this encounter Care Teams Fondant Machine Operator Relationship Specialty Start Date End Date Harry Jorgensen MD PCP - General 09/06/16 Taqueria Sullivan MD [address] [facility] [address] [place] [address] PCP - General 08/27/16 09/05/16 Harry Jorgensen MD PCP - General 04/21/14 08/26/16 Harry Jorgensen MD PCP - General 03/04/11 04/20/14 Harry Jorgensen MD PCP - General 03/01/10 03/03/11 Vitaliy Alcazar MD [address] [place] [id number] PCP - Home Infusion Attending Infectious Diseases 11/10/24 Truman Moody MD [address] [facility] [address] [address] Lozenge Maker Cardiology 02/01/19 09/16/24 Michael Quiros MD [address] [place] [address] Referring Physician Interventional Cardiology 09/17/24 Mohan Rico MD [address] [address] [place] [address] Consulting Physician Pulmonary Disease 09/17/24 Betty Calvin PA [address] [place] [address] Physician Child Welfare Director Orthopedic Surgery 10/08/24 Sybil Alex, [facility] Pharmacist Pharmacy 10/29/24 11/15/[address] [facility] Pharmacist Pharmacy 11/15/24 11/23/24 Carol Sainz, RN Registered Nurse 12/02/24 Sybil Alex, [facility] Pharmacist Pharmacy 12/08/24 12/24/24 documented as of this encounter
[2025-01-21 16:56] LABS: Hematocrit 31.5 % (37.0-47.0); Hemoglobin 9.8 g/dL (12.0-15.0); Immature Granulocyte Percent A 0.7 % (0-0.5); Lymphocytes Absolute Auto 1.67 K/mm3 (0.9-3.2); Mean Corpuscular HGB Conc 31.1 g/dl (32-36); Mean Corpuscular Hemoglobin 27.1 pg (26-34); Mean Corpuscular Volume 87.3 fl (80-100); Nucleated Red Blood Cells Absolute Auto 0.000 K/mm3 (0.0-0.012); Nucleated Red Blood Cells Perc 0.0 % (0.0-0.2); Platelet Count Result 272 k/mm3 (150-375); Red Blood Count 3.61 M/mm3 (4.2-5.4); White Blood Count 8.7 K/mm3 (4.5-10.0)
[2025-01-21 18:10] LABS: Alanine Aminotransferase 12 U/L (6-35); Albumin Level 3.5 g/dL (3.5-5.1); Alkaline Phosphatase 119 U/L (38-126); Anion Gap 10 mmol/L (4-12); Aspartate Amino Transferase 32 U/L (14-36); Bilirubin,Total 0.3 mg/dL (0.2-1.3); Blood Urea Nitrogen 23 mg/dL (7-17); Calcium 9.2 mg/dL (8.4-10.2); Carbon Dioxide 22 mmol/L (22-30); Chloride 103 mmol/L (98-107); Estimated Glomerular Filt Rate > 60; Glucose 96 mg/dL (65-110); Potassium 3.7 mmol/L (3.4-5.0); Sodium 135 mmol/L (137-145); Total Protein 6.8 g/dL (6.3-8.2)
== END 2025-01-21 15:39 | disposition home or self-care (01) ==
PROVIDERS: PCP Family Medicine; Visit Provider Internal Medicine Infectious Disease
DX: T84.53XD Infection and inflammatory reaction due to internal right knee prosthesis, subsequent encounter (principal)
CPT/HCPCS: 80053; 85025; 85652